=== PATIENT | female | born 1950 | race African-American/Black ===

== ENCOUNTER 2017-12-04 12:02 | Inpatient (IN) | payer MEDICAID ==
[~2017-12-04] VITALS: Ht 162.6 cm; Wt 70.3 kg
[~2017-12-04 12:02] MED LIST: ACETAMINOPHEN325 M2 RECTAL; ACETAMINOPHEN650 M2 ORAL; ALBUTEROL2.5 MG/3 M HHN; ATIVAN2 MG ORAL; ATROVENT500 MCG/2. HHN; CATAPRES0.1 MG ORAL; LEVEMIR100 UNIT/1 SUBQ; LOMOTIL TABLET1 EACH ORAL; METFORMIN HCL500 M1 ORAL; MOM30 ML ORAL; NORVASC5 MG ORAL; REGLAN10 MG ORAL
[2017-12-04] MEDS ORDERED: NORVASC5 MG ORAL (12:10)
[2017-12-04] MEDS ORDERED: MILK OF MA400 MG/51 ORAL (12:10)
[2017-12-04] MEDS ORDERED: MEGACE ES625 MG/5 M PO (12:10)
[2017-12-04] MEDS ORDERED: ARTIFICIAL TEAR15 ML BOTH EYES (12:10)
[2017-12-04] MEDS ORDERED: CALCIUM500 M3 PO (12:10)
[2017-12-04] MEDS ORDERED: ASPIR 8181 MG ORAL (12:10)
[2017-12-04] MEDS ORDERED: CRANBERRY450 M4 PO (12:10)
[2017-12-04] MEDS ORDERED: PEPCID20 MG ORAL (12:10)
[2017-12-04] MEDS ORDERED: SENNA8.6 M2 PO (12:10)
[2017-12-04] MEDS ORDERED: COLACE100 MG ORAL (12:10)
--- NOTE | 2017-12-04 12:20 | Emergency Room Report ---
History of Present Illness General Chief Complaint: Upper Respiratory Illness Source: Patient, Medical Record, EMS Present Illness HPI 59-year-old female, coming from [facility], presenting with possible pneumonia. care home sent her here for rule out pneumonia. Patient is awake and alert, oriented 3, however does not know why she was sent to the emergency room and does not know why she is here. She'll appear short of breath but is denying that she is short of breath. Unknown if she has had a cough. Is also tachycardic. No other history is able to be obtained Allergies: Coded Allergies: Shrimp (Unverified Allergy, Unknown, 12/04/17) Patient History Past Medical History: see triage record Past Surgical History: none Pertinent Family History: none Reviewed Nursing Documentation: PMH: Agreed, PSxH: Agreed Nursing Documentation-PMH Past Medical History: No History, Except For Hx Hypertension: Yes Hx COPD: Yes Hx Diabetes: Yes Hx Cancer: No Hx Gastrointestinal Problems: Yes - HEP C Hx Neurological Problems: Yes - headaches Review of Systems All Other Systems: negative except mentioned in HPI Physical Exam Vital Signs Date Time Temp Pulse Resp B/P (MAP) Pulse Ox O2 Delivery O2 Flow Rate FiO2 12/04/17 11:53 98.2 114 20 114/77 99 Room Air 98.2 Sp02 EP Interpretation: abnormal General Appearance: alert, moderate distress Head: normocephalic, atraumatic Eyes: bilateral eye normal inspection, bilateral eye PERRL, bilateral eye EOMI ENT: normal ENT inspection, normal pharynx, normal voice, moist mucus membranes Neck: normal inspection, full range of motion, supple Respiratory: other - dec lung sounds L worse than R Cardiovascular #1: normal inspection, regular rate, rhythm, no edema, normal capillary refill Cardiovascular #2: 2+ radial (R), 2+ radial (L) Gastrointestinal: normal inspection, non tender, soft, non-distended, no guarding Musculoskeletal: other - no sign traum FRMO Neurologic: alert, oriented x3, motor strength/tone normal Psychiatric: normal inspection, judgement/insight normal, memory normal Skin: normal inspection, normal color, no rash, warm/dry, well hydrated, normal turgor Medical Decision Making Diagnostic Impression: Primary Impression: Hypoxia Additional Impression: Pneumonia ER Course 67-year-old female who presents with hypoxia, shortness of breath DDX: Viral URI vs. pneumonia Plan: Labs, CXR, antibiotics ER course: Patient remains hypoxic on room air and has required nasal cannula Continues to be in mild/moderate respiratory distress but is speaking in complete senteces, alert, conversing with daughter, wanting to eat xopenex given to patient, antibiotics administered Disposition: Patient is to be admitted to telemetry D/w hospitalist Dr Watts EKG Diagnostic Results EP Interpretation: Yes Rate: Tachycardic Rhythm: NSR ST Segments: No acute changes ASA given to patient: No Rhythm Strip EP Interpretation: Yes Rate: 110 Rhythm: NSR, no PVCs, no ectopy Chest X-ray CXR: Ordered: Yes 1 view Indication: SOB EP interpretation: Yes Interpretation: +Infiltrate right-sided, also cannot rule out left pneumonia versus pleural effusion Impression: +Infiltrate right-sided, also cannot rule out left pneumonia versus pleural effusion Electronically signed by Jalyn Conley MD Laboratory Tests Test 12/04/17 12:40 White Blood Count 9.2 K/UL (4.8-10.8) Red Blood Count 5.07 M/UL (4.20-5.40) Hemoglobin 13.4 G/DL (12.0-16.0) Hematocrit 45.2 % (37.0-47.0) Mean Corpuscular Volume 89 FL (80-99) Mean Corpuscular Hemoglobin 26.4 PG (27.0-31.0) L Mean Corpuscular Hemoglobin Concent 29.6 G/DL (32.0-36.0) L Red Cell Distribution Width 14.8 % (11.6-14.8) Platelet Count 144 K/UL (150-450) L Mean Platelet Volume 7.8 FL (6.5-10.1) Neutrophils (%) (Auto) 47.4 % (45.0-75.0) Lymphocytes (%) (Auto) 45.1 % (20.0-45.0) H Monocytes (%) (Auto) 5.4 % (1.0-10.0) Eosinophils (%) (Auto) 0.4 % (0.0-3.0) Basophils (%) (Auto) 1.7 % (0.0-2.0) Urine Color Pale yellow Urine Appearance Clear Urine pH 5 (4.5-8.0) Urine Specific [place] 1.015 (1.005-1.035) Urine Protein 1+ (NEGATIVE) H Urine Glucose (UA) Negative (NEGATIVE) Urine Ketones Negative (NEGATIVE) Urine Occult Blood Negative (NEGATIVE) Urine Nitrite Negative (NEGATIVE) Urine Bilirubin Negative (NEGATIVE) Urine Urobilinogen Normal MG/DL (0.0-1.0) Urine Leukocyte Esterase 2+ (NEGATIVE) H Urine RBC 0-2 /HPF (0 - 2) Urine WBC 5-10 /HPF (0 - 2) H Urine Squamous Epithelial Cells Few /LPF (NONE/OCC) Urine Bacteria Occasional /HPF (NONE) Sodium Level 145 MMOL/L (136-145) Potassium Level 5.1 MMOL/L (3.5-5.1) Chloride Level 99 MMOL/L (98-107) Carbon Dioxide Level > 45 MMOL/L (21-32) *H Blood Urea Nitrogen 20 mg/dL (7-18) H Creatinine 1.1 MG/DL (0.55-1.30) Estimate Glomerular Filtration Rate 59.9 mL/min (>60) Glucose Level 293 MG/DL (74-106) H Lactic Acid Level Pending Calcium Level 10.0 MG/DL (8.5-10.1) Total Bilirubin Pending Aspartate Amino Transferase (AST) Pending Alanine Aminotransferase (ALT) Pending Alkaline Phosphatase Pending Total Creatine Kinase Pending Troponin I Pending Pro-B-Type Natriuretic Peptide Pending Total Protein Pending Albumin Pending Globulin Pending Microbiology Date/Time Source Procedure Growth Status 12/04/17 12:40 Nasal Nares Influenza Types A,B Antigen (CHARLES) - Final Complete Last Vital Signs Date Time Temp Pulse Resp B/P (MAP) Pulse Ox O2 Delivery O2 Flow Rate FiO2 12/04/17 11:53 98.2 114 20 114/77 99 Room Air 98.2 Disposition: ADMITTED INPATIENT Condition: Serious Referrals: NON PHYSICIAN (PCP) Jalyn Conley M.D. Dec 04, 2017 12:20
[2017-12-04 13:17] LABS: APPEARANCE,URINE CLEAR; BASOPHILS % (AUTO) 1.7 % (0.0-2.0); BILIRUBIN, URINE NEGATIVE (NEGATIVE); COLOR,URINE PALE YELLOW; EOSINOPHILS % (AUTO) 0.4 % (0.0-3.0); GLUCOSE, URINE (UA) NEGATIVE (NEGATIVE); HEMATOCRIT 45.2 % (37.0-47.0); HEMOGLOBIN 13.4 G/DL (12.0-16.0); KETONES,URINE NEGATIVE (NEGATIVE); LEUKOCYTE ESTERASE ,URINE 2+ (NEGATIVE); LYMPHOCYTES % (AUTO) 45.1 % (20.0-45.0); MEAN CORPUSCULAR VOLUME 89 FL (80-99); MONOCYTES % (AUTO) 5.4 % (1.0-10.0); NEUTROPHILS % (AUTO) 47.4 % (45.0-75.0); NITRITE,URINE NEGATIVE (NEGATIVE); PH,URINE 5 (4.5-8.0); PLATELET COUNT 144 K/UL (150-450); PROTEIN,URINE 1+ (NEGATIVE); RED BLOOD COUNT 5.07 M/UL (4.20-5.40); RED CELL DISTRIBUTION WIDTH 14.8 % (11.6-14.8); UROBILINOGEN,URINE NORMAL MG/DL (0.0-1.0); WHITE BLOOD COUNT 9.2 K/UL (4.8-10.8)
[2017-12-04 13:32] LABS: BLOOD UREA NITROGEN 20 mg/dL (7-18); CHLORIDE 99 MMOL/L (98-107); CREATININE 1.1 MG/DL (0.55-1.30); POTASSIUM 5.1 MMOL/L (3.5-5.1); SODIUM 145 MMOL/L (136-145)
[2017-12-04 13:34] LABS: CARBON DIOXIDE > 45 MMOL/L (21-32)
[2017-12-04 13:40] LABS: ALANINE AMINOTRANSFERASE 27 U/L (12-78); ALBUMIN 3.3 G/DL (3.4-5.0); ALBUMIN/GLOBULIN RATIO 0.7 (1.0-2.7); ALKALINE PHOSPHATASE 58 U/L (46-116); ASPARTATE AMINO TRANSFERASE 21 U/L (15-37); BILIRUBIN,TOTAL 0.2 MG/DL (0.2-1.0); CREATINE KINASE 22 U/L (26-308)
[2017-12-04] MEDS ORDERED: Vancomycin 1 GM in NS 275 ML IVPB ONE (13:45)
[2017-12-04] MEDS ORDERED: Piperacillin/Tazobactam 3.375 GM in NS 55 ML IV ONE (13:45)
[2017-12-04] MEDS ORDERED: Levalbuterol Inh UD 1.25mg/0.5ml HHN ONE (13:45)
[2017-12-04] MEDS ORDERED: Vancomycin 1gm inj IVPB ONE (13:48)
[2017-12-04] MEDS ORDERED: Zosyn 3.375gm inj ONE (13:48)
--- NOTE | 2017-12-04 13:53 | Diagnostic Imaging Report ---
Indication: Cough Technique: One view of the chest Comparison: none Findings: There is a small left pleural effusion. There is right perihilar atelectasis and possibly some consolidation. There is equivocal mild interstitial congestion diffusely. The heart is upper limits normal in size Impression: Left pleural effusion Right perihilar atelectasis Equivocal right perihilar consolidation and bilateral mild interstitial congestion. Correlate with clinical findings
[2017-12-04 14:00] VITALS: BP 115/70
[2017-12-04] MEDS ORDERED: Albuterol/Ipratropium 3ml neb HHN PRN (14:45)
[2017-12-04] MEDS ORDERED: Morphine Sulfate 4mg/ml Inj IVP PRN (14:45)
[2017-12-04] MEDS ORDERED: Promethazine/Codeine 5ml UD ORAL PRN (14:45)
[2017-12-04] MEDS ORDERED: LORazepam Inj 2mg/ml 1ml IV PRN (14:45)
[2017-12-04] MEDS ORDERED: Miralax 17gm pkt ORAL PRN (14:45)
[2017-12-04 15:00] VITALS: BP 111/65
[2017-12-04 16:25] VITALS: BP 117/75
[2017-12-04] MEDS: NovoLOG Insulin Flexpen SUBQ SCH ×2 (17:02→21:50)
--- NOTE | 2017-12-04 17:33 | History and Physical ---
History of Present Illness General Date patient seen: Dec 04, 2017 Reason for Hospitalization: Upper Respiratory Illness Present Illness HPI 59-year-old female, with pmh of tracheostomy, removed now, COPD, Hep C, [facility] coming, brought in for evaluation of dyspnea, She'll appear short of breath but is denying that she is short of breath. She was also tachycardic. No other history is able to be obtained. She is admitted to [facility] because she was hemodynamically unstable. Allergies: Coded Allergies: Shrimp (Unverified Allergy, Unknown, 12/04/17) Medication History Scheduled Acetaminophen (Acetaminophen), 325 MG RECTAL Q4H, (Reported) Acetaminophen (Acetaminophen 8 Hour), 650 MG ORAL Q4HR, (Reported) Albuterol Sulfate* (Albuterol Sulfate Hhn*), 2.5 MG HHN Q4H, (Reported) Amlodipine Besylate (Norvasc), 5 MG ORAL DAILY, (Reported) Amlodipine Besylate (Norvasc), 5 MG ORAL DAILY, (Reported) Aspirin* (Aspir 81*), 81 MG ORAL DAILY, (Reported) Calcium Carbonate (Calcium), 500 MG PO BID, (Reported) Cranberry Fruit Concentrate (Cranberry), 450 MG PO BID, (Reported) Docusate Sodium* (Colace*), 100 MG ORAL DAILY, (Reported) Famotidine (Pepcid), 20 MG ORAL BEDTIME, (Reported) Insulin Detemir (Levemir), 30 SUBQ 6AM, (Reported) Insulin Detemir (Levemir), 18 SUBQ 6PM, (Reported) Magnesium Hydroxide* (Milk Of Magnesia*), 30 ML ORAL DAILY, (Reported) Metformin Hcl* (Metformin Hcl*), 500 MG ORAL TWICE A DAY, (Reported) Metoclopramide Hcl* (Reglan*), 10 MG ORAL THREE TIMES A DAY, (Reported) Scheduled PRN Clonidine Hcl* (Catapres*), 0.1 MG ORAL EVERY 6 HOURS PRN, (Reported) Diphenoxylate Hcl/Atropine (Lomotil Tablet), 25 MG ORAL QID PRN, (Reported) Lorazepam* (Ativan*), 2 MG ORAL BEDTIME PRN, (Reported) Magnesium Hydroxide (Milk of Magnesia), 30 ML ORAL DAILY PRN, (Reported) Sennosides (Senna), 8.6 MG PO for Constipation, (Reported) Miscellaneous Medications Dextran 70/Hypromellose (Artificial Tears Eye Drops*), 1 DROP BOTH EYES, ( Reported) Ipratropium [place] (Atrovent), 500 MCG HHN, (Reported) Megestrol Acetate (Megace Es), 40 MG PO, (Reported) Patient History Healthcare decision maker N Resuscitation status Advanced Directive on File Past Medical/Surgical History Past Medical/Surgical History: (1) Hepatitis C Review of Systems Constitutional: Reports: malaise, weakness Respiratory: Reports: cough, shortness of breath, sputum All Other Systems: negative except mentioned in HPI Physical Exam General Appearance: WD/WN Lines, tubes and drains: peripheral HEENT: normocephalic, atraumatic Neck: non-tender, normal alignment Respiratory/Chest: rhonchi - left, rhonchi - right Cardiovascular/Chest: normal peripheral pulses, normal rate Abdomen: non tender Genitourinary/Rectal: normal genital exam, normal rectal exam Extremities: normal range of motion, non-tender 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 Last 24 Hour Vital Signs Date Time Temp Pulse Resp B/P (MAP) Pulse Ox O2 Delivery O2 Flow Rate FiO2 12/04/17 17:15 97 19 97 Full Face 50 12/04/17 16:25 98.6 99 18 117/75 100 Bi-pap 50 98.6 12/04/17 16:03 99.0 109 18 111/65 100 Bi-pap 99.0 12/04/17 15:00 99.0 109 18 111/65 100 Bi-pap 50 99.0 12/04/17 14:40 50 12/04/17 14:32 114 31 100 Full Face 50 12/04/17 13:00 114 20 Nasal Cannula 1.0 12/04/17 12:56 99.0 99.0 12/04/17 11:53 98.2 114 20 114/77 99 Room Air 98.2 Laboratory Tests Test 12/04/17 12:40 12/04/17 13:34 White Blood Count 9.2 K/UL (4.8-10.8) Red Blood Count 5.07 M/UL (4.20-5.40) Hemoglobin 13.4 G/DL (12.0-16.0) Hematocrit 45.2 % (37.0-47.0) Mean Corpuscular Volume 89 FL (80-99) Mean Corpuscular Hemoglobin 26.4 PG (27.0-31.0) L Mean Corpuscular Hemoglobin Concent 29.6 G/DL (32.0-36.0) L Red Cell Distribution Width 14.8 % (11.6-14.8) Platelet Count 144 K/UL (150-450) L Mean Platelet Volume 7.8 FL (6.5-10.1) Neutrophils (%) (Auto) 47.4 % (45.0-75.0) Lymphocytes (%) (Auto) 45.1 % (20.0-45.0) H Monocytes (%) (Auto) 5.4 % (1.0-10.0) Eosinophils (%) (Auto) 0.4 % (0.0-3.0) Basophils (%) (Auto) 1.7 % (0.0-2.0) Urine Color Pale yellow Urine Appearance Clear Urine pH 5 (4.5-8.0) Urine Specific [place] 1.015 (1.005-1.035) Urine Protein 1+ (NEGATIVE) H Urine Glucose (UA) Negative (NEGATIVE) Urine Ketones Negative (NEGATIVE) Urine Occult Blood Negative (NEGATIVE) Urine Nitrite Negative (NEGATIVE) Urine Bilirubin Negative (NEGATIVE) Urine Urobilinogen Normal MG/DL (0.0-1.0) Urine Leukocyte Esterase 2+ (NEGATIVE) H Urine RBC 0-2 /HPF (0 - 2) Urine WBC 5-10 /HPF (0 - 2) H Urine Squamous Epithelial Cells Few /LPF (NONE/OCC) Urine Bacteria Occasional /HPF (NONE) Sodium Level 145 MMOL/L (136-145) Potassium Level 5.1 MMOL/L (3.5-5.1) Chloride Level 99 MMOL/L (98-107) Carbon Dioxide Level > 45 MMOL/L (21-32) *H Blood Urea Nitrogen 20 mg/dL (7-18) H Creatinine 1.1 MG/DL (0.55-1.30) Estimat Glomerular Filtration Rate 59.9 mL/min (>60) Glucose Level 293 MG/DL (74-106) H Lactic Acid Level 1.40 mmol/L (0.66-2.22) Calcium Level 10.0 MG/DL (8.5-10.1) Total Bilirubin 0.2 MG/DL (0.2-1.0) Aspartate Amino Transf (AST/SGOT) 21 U/L (15-37) Alanine Aminotransferase (ALT/SGPT) 27 U/L (12-78) Alkaline Phosphatase 58 U/L (46-116) Total Creatine Kinase 22 U/L (26-308) L Troponin I 0.040 ng/mL (0.000-0.056) Pro-B-Type Natriuretic Peptide 725 pg/mL (0-125) H Total Protein 8.0 G/DL (6.4-8.2) Albumin 3.3 G/DL (3.4-5.0) L Globulin 4.7 g/dL Albumin/Globulin Ratio 0.7 (1.0-2.7) L Arterial Blood pH 7.298 (7.350-7.450) Arterial Blood Partial Pressure CO2 111.3 mmHg (35.0-45.0) *H Arterial Blood Partial Pressure O2 70.9 mmHg (75.0-100.0) L Arterial Blood HCO3 53.2 mmol/L (22.0-26.0) H Arterial Blood Oxygen Saturation 93.3 % (92.0-98.0) Arterial Blood Base Excess 21.0 Julius Test Positive Microbiology Date/Time Source Procedure Growth Status 12/04/17 12:40 Nasal Nares Influenza Types A,B Antigen (CHARLES) - Final Complete Height (Feet): 5 Height (Inches): 4.00 Weight (Pounds): 155 Medications Current Medications Medications (Trade) Dose Ordered Sig/Hansel Route PRN Reason Start Time Stop Time Status Last Admin Dose Admin Acetaminophen (Tylenol) 650 mg Q4H PRN ORAL FEVER 12/04/17 14:45 01/03/18 14:44 Albuterol/ Ipratropium (Albuterol/ Ipratropium) 3 ml EVERY 4 HOURS PRN HHN Shortness of Breath 12/04/17 14:45 12/09/17 14:44 Amlodipine Besylate (Norvasc) 5 mg DAILY ORAL 12/05/17 09:00 01/04/18 08:59 Cefepime HCl 1 gm/ Dextrose 55 ml @ 110 mls/hr EVERY 12 HOURS IVPB 12/04/17 21:00 12/11/17 20:59 Dextrose (Dextrose 50%) STAT PRN IV Hypoglycemia 12/04/17 14:45 01/03/18 14:44 Heparin Sodium (Porcine) (Heparin 5000 units/ml) 5,000 units EVERY 12 HOURS SUBQ 12/04/17 21:00 01/03/18 20:59 Insulin Aspart (NovoLOG) BEFORE MEALS AND HS SUBQ 12/04/17 16:30 01/03/18 16:29 12/04/17 17:02 Lorazepam (Ativan 2mg/ml 1ml) 2 mg EVERY 2 HOURS PRN IV For Anxiety 12/04/17 14:45 12/11/17 14:44 Morphine Sulfate (Morphine Sulfate) 4 mg EVERY 4 HOURS PRN IVP Severe Pain (Pain Scale 7-10) 12/04/17 14:45 12/11/17 14:44 Ondansetron HCl (Zofran) 4 mg Q6H PRN IVP Nausea & Vomiting 12/04/17 14:45 01/03/18 14:44 Polyethylene Glycol (Miralax) 17 gm DAILYPRN PRN ORAL Constipation 12/04/17 14:45 01/03/18 14:44 Promethazine HCl/ Codeine (Phenergan with Codeine) 5 ml Q4H PRN ORAL For Cough 12/04/17 14:45 01/03/18 14:44 Sodium Chloride 1,000 ml @ 50 mls/hr Q20H IV 12/04/17 17:00 01/03/18 16:59 12/04/17 16:47 Vancomycin HCl (Vanco rx to dose) 1 ea DAILY PRN MISC . 12/04/17 16:00 01/03/18 15:59 Vancomycin HCl 1.25 gm/Dextrose 275 ml @ 183.3 mls/ hr Q24H IVPB 12/05/17 06:00 12/10/17 05:59 Assessment/Plan Problem List: (1) Acute and chronic respiratory failure ICD Codes: J96.20 - Acute and chronic respiratory failure, unspecified whether with hypoxia or hypercapnia SNOMED: 96698505 (2) Pneumonia ICD Codes: J18.9 - Pneumonia, unspecified organism SNOMED: 447624223 (3) COPD (chronic obstructive pulmonary disease) ICD Codes: J44.9 - Chronic obstructive pulmonary disease, unspecified SNOMED: 80793294 (4) Tachycardia ICD Codes: R00.0 - Tachycardia, unspecified SNOMED: 6134422 (5) Hepatitis C ICD Codes: B19.20 - Unspecified viral hepatitis C without hepatic coma SNOMED: 65088693 Assessment/Plan titrate bipap respiratory treatment iv abc check sputum chest PT check cultures Renal evaluation dvt prophylaxis Leni Watts MD Dec 04, 2017 17:33
[2017-12-04 20:00] VITALS: BP_SYST 117; BP_SYST 131; BP_DIAS 63; BP_DIAS 75
[2017-12-04] MEDS: Heparin 5000 units/ml inj SUBQ SCH (21:00)
[2017-12-04] MEDS: Cefepime HCl 1 GM in D5W 55 ML IVPB SCH (21:30)
[2017-12-05] VITALS: BP 125/71
[2017-12-05 04:00] VITALS: BP 111/71
[2017-12-05] MEDS: Vancomycin 1.25 GM in D5W 275 ML IVPB SCH (06:06)
[2017-12-05] MEDS: NovoLOG Insulin Flexpen SUBQ SCH ×4 (06:07→21:30)
[2017-12-05 07:50] LABS: BASOPHILS % (AUTO) 1.1 % (0.0-2.0); EOSINOPHILS % (AUTO) 0.6 % (0.0-3.0); HEMATOCRIT 41.2 % (37.0-47.0); HEMOGLOBIN 12.7 G/DL (12.0-16.0); LYMPHOCYTES % (AUTO) 43.4 % (20.0-45.0); MEAN CORPUSCULAR VOLUME 89 FL (80-99); MONOCYTES % (AUTO) 5.6 % (1.0-10.0); NEUTROPHILS % (AUTO) 49.3 % (45.0-75.0); PLATELET COUNT 128 K/UL (150-450); RED BLOOD COUNT 4.61 M/UL (4.20-5.40); RED CELL DISTRIBUTION WIDTH 14.7 % (11.6-14.8)
[2017-12-05 07:51] LABS: ALBUMIN 2.9 G/DL (3.4-5.0); BLOOD UREA NITROGEN 15 mg/dL (7-18); CALCIUM 9.6 MG/DL (8.5-10.1); CHLORIDE 102 MMOL/L (98-107); PHOSPHORUS 2.9 MG/DL (2.5-4.9); POTASSIUM 5.5 MMOL/L (3.5-5.1); SODIUM 144 MMOL/L (136-145)
[2017-12-05 08:00] VITALS: BP 114/69
[2017-12-05 08:33] LABS: CARBON DIOXIDE > 45 MMOL/L (21-32)
[2017-12-05] MEDS: Cefepime HCl 1 GM in D5W 55 ML IVPB SCH ×2 (10:02→21:00)
[2017-12-05] MEDS: Heparin 5000 units/ml inj SUBQ SCH ×2 (10:04→21:00)
--- NOTE | 2017-12-05 10:47 | Consultation ---
Consult Note Consult Note asked to eval for high K 59-year-old female, [place] [facility], presenting with possible pneumonia. snf sent her here for rule out pneumonia. Patient is awake and alert, oriented 3, however does not know why she was sent to the emergency room and does not know why she is here. She'll appear short of breath but is denying that she is short of breath. Unknown if she has had a cough. Is also tachycardic. No other history is able to be obtained Past Medical History: No History, Except For Hx Hypertension: Yes Hx COPD: Yes Hx Diabetes: Yes Hx Gastrointestinal Problems: Yes - HEP C Hx Neurological Problems: Yes - headaches Assessment/Plan High K due to acidosis and hypoxia Hypoxia Pneumonia HTN COPD DM Hep C change Norvasc to cardiazem start diamox pulmonary support Kayexelate per orders BUZZ CHAHAL Dec 05, 2017 10:47
[2017-12-05] MEDS ORDERED: Sodium Polystyrene Sulfonate 15gm Powder ORAL ONE (11:15)
[2017-12-05 12:00] VITALS: BP 118/76
--- NOTE | 2017-12-05 13:10 | Pulmonology Progress Note ---
Assessment/Plan Problems: (1) Acute and chronic respiratory failure (2) Pneumonia (3) COPD (chronic obstructive pulmonary disease) (4) Tachycardia (5) Hepatitis C Assessment/Plan slightly more stable improving continue abx check cultures chest PT renal evaluation for Hyperkalemia titrate fio2 to sat of 89-90. Subjective ROS Limited/Unobtainable: No Constitutional: Reports: no symptoms HEENT: Repors: no symptoms Allergies: Coded Allergies: Shrimp (Unverified Allergy, Unknown, 12/04/17) Objective Last 24 Hour Vital Signs Date Time Temp Pulse Resp B/P (MAP) Pulse Ox O2 Delivery O2 Flow Rate FiO2 12/05/17 12:00 98.1 98 20 118/76 98 Nasal Cannula 4.0 98.1 12/05/17 12:00 4.0 12/05/17 10:02 106 114/69 12/05/17 08:00 97.6 106 20 114/69 98 Nasal Cannula 4.0 97.6 12/05/17 08:00 4.0 12/05/17 07:58 99 12/05/17 04:00 86 12/05/17 04:00 4.0 12/05/17 04:00 98.3 84 24 111/71 100 Nasal Cannula 4.0 98.3 12/05/17 00:48 90 22 96 Full Face 30 12/05/17 00:26 105 12/05/17 00:00 30 12/05/17 00:00 98.8 109 28 125/71 98 Bi-pap 30 98.8 12/04/17 23:29 92 36 97 Full Face 30 12/04/17 20:00 98.8 104 20 117/63 99 Nasal Cannula 2.0 98.8 12/04/17 19:43 94 12/04/17 19:00 85 18 96 Full Face 30 12/04/17 17:56 102 12/04/17 17:15 97 19 97 Full Face 50 12/04/17 16:25 98.6 99 18 117/75 100 Bi-pap 50 98.6 12/04/17 16:03 99.0 109 18 111/65 100 Bi-pap 99.0 12/04/17 16:00 50 12/04/17 15:00 99.0 109 18 111/65 100 Bi-pap 50 99.0 12/04/17 14:40 50 12/04/17 14:32 114 31 100 Full Face 50 12/04/17 14:00 99.0 111 18 115/70 100 99.0 Intake and Output 12/04/17 12/05/17 19:00 07:00 Intake Total 425 ml 775 ml Balance 425 ml 775 ml Intake Oral 50 ml 220 ml IV Total 375 ml 555 ml # Voids 1 # Bowel Movements 2 General Appearance: WD/WN HEENT: normocephalic, atraumatic Respiratory/Chest: chest wall non-tender, lungs clear Breasts: no masses Cardiovascular: normal peripheral pulses Abdomen: normal bowel sounds, no organomegaly Genitourinary: normal external genitalia Extremities: no cyanosis Skin: no lesions 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, no motor/sensory deficits Lymphatic: no neck adenopathy Microbiology Date/Time Source Procedure Growth Status 12/04/17 12:40 Nasal Nares Influenza Types A,B Antigen (CHARLES) - Final Complete Laboratory Tests 12/04/17 13:34: Arterial Blood pH 7.298L, Arterial Blood Partial Pressure CO2 111.3*H, Arterial Blood Partial Pressure O2 70.9L, Arterial Blood HCO3 53.2H, Arterial Blood Oxygen Saturation 93.3, Arterial Blood Base Excess 21.0, Julius Test Positive 12/04/17 17:36: Arterial Blood pH 7.300L, Arterial Blood Partial Pressure CO2 96.5*H, Arterial Blood Partial Pressure O2 152.8H, Arterial Blood HCO3 46.4H, Arterial Blood Oxygen Saturation 98.7H, Arterial Blood Base Excess 15.8, Julius Test Positive 12/05/17 06:00: White Blood Count 9.0, Red Blood Count 4.61, Hemoglobin 12.7, Hematocrit 41.2, Mean Corpuscular Volume 89, Mean Corpuscular Hemoglobin 27.5, Mean Corpuscular Hemoglobin Concent 30.8L, Red Cell Distribution Width 14.7, Platelet Count 128L , Mean Platelet Volume 7.2, Neutrophils (%) (Auto) 49.3, Lymphocytes (%) (Auto) 43.4, Monocytes (%) (Auto) 5.6, Eosinophils (%) (Auto) 0.6, Basophils (%) (Auto ) 1.1, Sodium Level 144, Potassium Level 5.5H, Chloride Level 102, Carbon Dioxide Level > 45*H, Blood Urea Nitrogen 15, Creatinine 1.0, Estimat Glomerular Filtration Rate > 60, Glucose Level 136#H, Calcium Level 9.6, Phosphorus Level 2.9, Albumin 2.9L 12/05/17 10:56: C-Reactive Protein, Quantitative < 0.4 Current Medications Medications (Trade) Dose Ordered Sig/Hansel Route PRN Reason Start Time Stop Time Status Last Admin Dose Admin Acetaminophen (Tylenol) 650 mg Q4H PRN ORAL FEVER 12/04/17 14:45 01/03/18 14:44 Acetazolamide (Diamox) 250 mg TWICE A DAY ORAL 12/05/17 18:00 01/04/18 17:59 Albuterol/ Ipratropium (Albuterol/ Ipratropium) 3 ml EVERY 4 HOURS PRN HHN Shortness of Breath 12/04/17 14:45 12/09/17 14:44 Cefepime HCl 1 gm/ Dextrose 55 ml @ 110 mls/hr EVERY 12 HOURS IVPB 12/04/17 21:00 12/11/17 20:59 12/05/17 10:02 Dextrose (Dextrose 50%) STAT PRN IV Hypoglycemia 12/04/17 14:45 01/03/18 14:44 Diltiazem HCl (Cardizem) 30 mg EVERY 8 HOURS ORAL 12/05/17 14:00 01/04/18 13:59 Heparin Sodium (Porcine) (Heparin 5000 units/ml) 5,000 units EVERY 12 HOURS SUBQ 12/04/17 21:00 01/03/18 20:59 12/05/17 10:04 Insulin Aspart (NovoLOG) BEFORE MEALS AND HS SUBQ 12/04/17 16:30 01/03/18 16:29 12/05/17 12:52 Lorazepam (Ativan 2mg/ml 1ml) 2 mg EVERY 2 HOURS PRN IV For Anxiety 12/04/17 14:45 12/11/17 14:44 12/04/17 21:32 Morphine Sulfate (Morphine Sulfate) 4 mg EVERY 4 HOURS PRN IVP Severe Pain (Pain Scale 7-10) 12/04/17 14:45 12/11/17 14:44 12/04/17 23:43 Ondansetron HCl (Zofran) 4 mg Q6H PRN IVP Nausea & Vomiting 12/04/17 14:45 01/03/18 14:44 Pantoprazole (Protonix) 40 mg DAILY ORAL 12/05/17 11:15 01/04/18 11:14 Polyethylene Glycol (Miralax) 17 gm DAILYPRN PRN ORAL Constipation 12/04/17 14:45 01/03/18 14:44 Promethazine HCl/ Codeine (Phenergan with Codeine) 5 ml Q4H PRN ORAL For Cough 12/04/17 14:45 01/03/18 14:44 Sodium Chloride 1,000 ml @ 50 mls/hr Q20H IV 12/04/17 17:00 01/03/18 16:59 12/04/17 16:47 Vancomycin HCl (Vanco rx to dose) 1 ea DAILY PRN MISC . 12/04/17 16:00 01/03/18 15:59 Vancomycin HCl 1.25 gm/Dextrose 275 ml @ 183.3 mls/ hr Q24H IVPB 12/05/17 06:00 12/10/17 05:59 12/05/17 06:06 Leni Watts MD Dec 05, 2017 13:10
[2017-12-05] MEDS: dilTIAZem HCl 30mg tab ORAL SCH ×2 (13:12→21:28)
--- NOTE | 2017-12-05 14:37 | Consultation ---
History of Present Illness General Date patient seen: Dec 05, 2017 Time patient seen: 14:26 Chief Complaint: Upper Respiratory Illness Present Illness HPI 67 y/o F with hx of trach s/p removal, COPD, Hep C, Dm2, HTN, [facility] resident presents to ED on 12/04 with dyspnea, tachycardia. In ED found to have hyperkalemia, acidosis and hypoxia Allergies: Coded Allergies: Shrimp (Unverified Allergy, Unknown, 12/04/17) Medication History Scheduled Acetaminophen (Acetaminophen), 325 MG RECTAL Q4H, (Reported) Acetaminophen (Acetaminophen 8 Hour), 650 MG ORAL Q4HR, (Reported) Albuterol Sulfate* (Albuterol Sulfate Hhn*), 2.5 MG HHN Q4H, (Reported) Amlodipine Besylate (Norvasc), 5 MG ORAL DAILY, (Reported) Amlodipine Besylate (Norvasc), 5 MG ORAL DAILY, (Reported) Aspirin* (Aspir 81*), 81 MG ORAL DAILY, (Reported) Calcium Carbonate (Calcium), 500 MG PO BID, (Reported) Cranberry Fruit Concentrate (Cranberry), 450 MG PO BID, (Reported) Docusate Sodium* (Colace*), 100 MG ORAL DAILY, (Reported) Famotidine (Pepcid), 20 MG ORAL BEDTIME, (Reported) Insulin Detemir (Levemir), 30 SUBQ 6AM, (Reported) Insulin Detemir (Levemir), 18 SUBQ 6PM, (Reported) Magnesium Hydroxide* (Milk Of Magnesia*), 30 ML ORAL DAILY, (Reported) Metformin Hcl* (Metformin Hcl*), 500 MG ORAL TWICE A DAY, (Reported) Metoclopramide Hcl* (Reglan*), 10 MG ORAL THREE TIMES A DAY, (Reported) Scheduled PRN Clonidine Hcl* (Catapres*), 0.1 MG ORAL EVERY 6 HOURS PRN, (Reported) Diphenoxylate Hcl/Atropine (Lomotil Tablet), 25 MG ORAL QID PRN, (Reported) Lorazepam* (Ativan*), 2 MG ORAL BEDTIME PRN, (Reported) Magnesium Hydroxide (Milk of Magnesia), 30 ML ORAL DAILY PRN, (Reported) Sennosides (Senna), 8.6 MG PO for Constipation, (Reported) Miscellaneous Medications Dextran 70/Hypromellose (Artificial Tears Eye Drops*), 1 DROP BOTH EYES, ( Reported) Ipratropium Elizabeth (Atrovent), 500 MCG HHN, (Reported) Megestrol Acetate (Megace Es), 40 MG PO, (Reported) Patient History Healthcare decision maker N Resuscitation status Full Code Advanced Directive on File Review of Systems All Other Systems: negative except mentioned in HPI Physical Exam Physical Exam Narrative General Appearance: WD/WN Lines, tubes and drains: peripheral HEENT: normocephalic, atraumatic Neck: non-tender, normal alignment Respiratory/Chest: rhonchi - left, rhonchi - right Cardiovascular/Chest: normal peripheral pulses, normal rate Abdomen: non tender Genitourinary/Rectal: normal genital exam, normal rectal exam Extremities: normal range of motion, non-tender Neurologic: manager benefit II-XII grossly normal Last 24 Hour Vital Signs Date Time Temp Pulse Resp B/P (MAP) Pulse Ox O2 Delivery O2 Flow Rate FiO2 12/05/17 13:12 98 118/76 12/05/17 12:00 98.1 98 20 118/76 98 Nasal Cannula 4.0 98.1 12/05/17 12:00 4.0 12/05/17 11:51 100 12/05/17 10:02 106 114/69 12/05/17 08:00 97.6 106 20 114/69 98 Nasal Cannula 4.0 97.6 12/05/17 08:00 4.0 12/05/17 07:58 99 12/05/17 04:00 86 12/05/17 04:00 4.0 12/05/17 04:00 98.3 84 24 111/71 100 Nasal Cannula 4.0 98.3 12/05/17 00:48 90 22 96 Full Face 30 12/05/17 00:26 105 12/05/17 00:00 30 12/05/17 00:00 98.8 109 28 125/71 98 Bi-pap 30 98.8 12/04/17 23:29 92 36 97 Full Face 30 12/04/17 20:00 98.8 104 20 117/63 99 Nasal Cannula 2.0 98.8 12/04/17 19:43 94 12/04/17 19:00 85 18 96 Full Face 30 12/04/17 17:56 102 3/20/18 17:15 97 19 97 Full Face 50 12/04/17 16:25 98.6 99 18 117/75 100 Bi-pap 50 98.6 12/04/17 16:03 99.0 109 18 111/65 100 Bi-pap 99.0 12/04/17 16:00 50 12/04/17 15:00 99.0 109 18 111/65 100 Bi-pap 50 99.0 12/04/17 14:40 50 12/04/17 14:32 114 31 100 Full Face 50 Intake and Output 12/04/17 12/05/17 19:00 07:00 Intake Total 425 ml 775 ml Balance 425 ml 775 ml Intake Oral 50 ml 220 ml IV Total 375 ml 555 ml # Voids 1 # Bowel Movements 2 Laboratory Tests Test 12/04/17 17:36 12/05/17 06:00 12/05/17 10:56 Arterial Blood pH 7.300 (7.350-7.450) Arterial Blood Partial Pressure CO2 96.5 mmHg (35.0-45.0) *H Arterial Blood Partial Pressure O2 152.8 mmHg (75.0-100.0) H Arterial Blood HCO3 46.4 mmol/L (22.0-26.0) H Arterial Blood Oxygen Saturation 98.7 % (92.0-98.0) H Arterial Blood Base Excess 15.8 Julius Test Positive White Blood Count 9.0 K/UL (4.8-10.8) Red Blood Count 4.61 M/UL (4.20-5.40) Hemoglobin 12.7 G/DL (12.0-16.0) Hematocrit 41.2 % (37.0-47.0) Mean Corpuscular Volume 89 FL (80-99) Mean Corpuscular Hemoglobin 27.5 PG (27.0-31.0) Mean Corpuscular Hemoglobin Concent 30.8 G/DL (32.0-36.0) L Red Cell Distribution Width 14.7 % (11.6-14.8) Platelet Count 128 K/UL (150-450) L Mean Platelet Volume 7.2 FL (6.5-10.1) Neutrophils (%) (Auto) 49.3 % (45.0-75.0) Lymphocytes (%) (Auto) 43.4 % (20.0-45.0) Monocytes (%) (Auto) 5.6 % (1.0-10.0) Eosinophils (%) (Auto) 0.6 % (0.0-3.0) Basophils (%) (Auto) 1.1 % (0.0-2.0) Sodium Level 144 MMOL/L (136-145) Potassium Level 5.5 MMOL/L (3.5-5.1) H Chloride Level 102 MMOL/L (98-107) Carbon Dioxide Level > 45 MMOL/L (21-32) *H Blood Urea Nitrogen 15 mg/dL (7-18) Creatinine 1.0 MG/DL (0.55-1.30) Estimat Glomerular Filtration Rate > 60 mL/min (>60) Glucose Level 136 MG/DL (74-106) #H Calcium Level 9.6 MG/DL (8.5-10.1) Phosphorus Level 2.9 MG/DL (2.5-4.9) Albumin 2.9 G/DL (3.4-5.0) L C-Reactive Protein, Quantitative < 0.4 mg/dL (0.00-0.90) Height (Feet): 5 Height (Inches): 4.00 Weight (Pounds): 155 Medications Current Medications Medications (Trade) Dose Ordered Sig/Hansel Route PRN Reason Start Time Stop Time Status Last Admin Dose Admin Acetaminophen (Tylenol) 650 mg Q4H PRN ORAL FEVER 12/04/17 14:45 01/03/18 14:44 Acetazolamide (Diamox) 250 mg TWICE A DAY ORAL 12/05/17 18:00 01/04/18 17:59 Albuterol/ Ipratropium (Albuterol/ Ipratropium) 3 ml EVERY 4 HOURS PRN HHN Shortness of Breath 12/04/17 14:45 12/09/17 14:44 Cefepime HCl 1 gm/ Dextrose 55 ml @ 110 mls/hr EVERY 12 HOURS IVPB 12/04/17 21:00 12/11/17 20:59 12/05/17 10:02 Dextrose (Dextrose 50%) STAT PRN IV Hypoglycemia 12/04/17 14:45 01/03/18 14:44 Diltiazem HCl (Cardizem) 30 mg EVERY 8 HOURS ORAL 12/05/17 14:00 01/04/18 13:59 12/05/17 13:12 Heparin Sodium (Porcine) (Heparin 5000 units/ml) 5,000 units EVERY 12 HOURS SUBQ 12/04/17 21:00 01/03/18 20:59 12/05/17 10:04 Insulin Aspart (NovoLOG) BEFORE MEALS AND HS SUBQ 12/04/17 16:30 01/03/18 16:29 12/05/17 12:52 Lorazepam (Ativan 2mg/ml 1ml) 2 mg EVERY 2 HOURS PRN IV For Anxiety 12/04/17 14:45 12/11/17 14:44 12/04/17 21:32 Morphine Sulfate (Morphine Sulfate) 4 mg EVERY 4 HOURS PRN IVP Severe Pain (Pain Scale 7-10) 12/04/17 14:45 12/11/17 14:44 12/04/17 23:43 Ondansetron HCl (Zofran) 4 mg Q6H PRN IVP Nausea & Vomiting 12/04/17 14:45 01/03/18 14:44 Pantoprazole (Protonix) 40 mg DAILY ORAL 12/05/17 11:15 01/04/18 11:14 12/05/17 13:11 Polyethylene Glycol (Miralax) 17 gm DAILYPRN PRN ORAL Constipation 12/04/17 14:45 01/03/18 14:44 Promethazine HCl/ Codeine (Phenergan with Codeine) 5 ml Q4H PRN ORAL For Cough 12/04/17 14:45 01/03/18 14:44 Sodium Chloride 1,000 ml @ 50 mls/hr Q20H IV 12/04/17 17:00 01/03/18 16:59 12/05/17 13:12 Vancomycin HCl (Vanco rx to dose) 1 ea DAILY PRN MISC . 12/04/17 16:00 01/03/18 15:59 Vancomycin HCl 1.25 gm/Dextrose 275 ml @ 183.3 mls/ hr Q24H IVPB 12/05/17 06:00 12/10/17 05:59 12/05/17 06:06 Assessment/Plan Assessment/Plan Abx: iV Vancomycin 12/04- Cefepime 12/04- Assessment: Acute hypoxic resp failure POssible PNA -CXR: Left pleural effusion. Right perihilar atelectasis. Equivocal right perihilar consolidation and bilateral mild interstitial congestion. -influenza sc neg Afebrile, no leukocytosis -u/a wbc 5-10, nit neg, leuk +2 Mild hyperkalemia hx of trach s/p removal COPD Hep C Dm2 HTN NH resident Plan: -Continue empiric Vanco and Cefepime #2 pending cultuers -f/u cx -Monitor CBC/BMP, temperatures -aspiration precautions Thank you for this consultation. Will continue to follow along with you. Discussed with AJ. Caterina Elizondo M.D. Dec 05, 2017 14:37
[2017-12-05 16:00] VITALS: BP 119/62
--- NOTE | 2017-12-05 17:00 | Cardiology Report ---
APPROVED REPORT EKG Measurement Heart [id number] Sinus tachycardia Otherwise normal ECG
[2017-12-05 20:00] VITALS: BP 130/76
[2017-12-06] VITALS: BP 117/68
[2017-12-06 04:00] VITALS: BP 120/71
[2017-12-06] MEDS: dilTIAZem HCl 30mg tab ORAL SCH ×3 (05:49→22:00)
[2017-12-06] MEDS: NovoLOG Insulin Flexpen SUBQ SCH ×4 (05:50→23:13)
[2017-12-06] MEDS: Vancomycin 1.25 GM in D5W 275 ML IVPB SCH (05:51)
[2017-12-06 08:00] VITALS: BP 133/66
[2017-12-06] MEDS: Cefepime HCl 1 GM in D5W 55 ML IVPB SCH ×2 (09:00→21:00)
[2017-12-06] MEDS: Heparin 5000 units/ml inj SUBQ SCH ×2 (09:00→21:00)
[2017-12-06 10:52] LABS: BASOPHILS % (AUTO) 1.7 % (0.0-2.0); EOSINOPHILS % (AUTO) 1.1 % (0.0-3.0); HEMATOCRIT 43.7 % (37.0-47.0); HEMOGLOBIN 13.1 G/DL (12.0-16.0); MEAN CORPUSCULAR VOLUME 88 FL (80-99); MONOCYTES % (AUTO) 6.6 % (1.0-10.0); NEUTROPHILS % (AUTO) 50.7 % (45.0-75.0); PLATELET COUNT 144 K/UL (150-450); RED BLOOD COUNT 4.95 M/UL (4.20-5.40); RED CELL DISTRIBUTION WIDTH 14.5 % (11.6-14.8); WHITE BLOOD COUNT 9.2 K/UL (4.8-10.8)
[2017-12-06 11:10] LABS: ALANINE AMINOTRANSFERASE 27 U/L (12-78); ALBUMIN 3.1 G/DL (3.4-5.0); ALBUMIN/GLOBULIN RATIO 0.7 (1.0-2.7); ALKALINE PHOSPHATASE 51 U/L (46-116); ANION GAP 1 mmol/L (5-15); ASPARTATE AMINO TRANSFERASE 23 U/L (15-37); BILIRUBIN,TOTAL 0.5 MG/DL (0.2-1.0); BLOOD UREA NITROGEN 19 mg/dL (7-18); CALCIUM 9.3 MG/DL (8.5-10.1); CARBON DIOXIDE 38 MMOL/L (21-32); CHLORIDE 105 MMOL/L (98-107); CHOLESTEROL 151 MG/DL (< 200); CREATINE KINASE 21 U/L (26-308); GAMMA GLUTAMYL TRANSPEPTIDASE 106 U/L (5-85); HDL CHOLESTEROL 45 MG/DL (40-60); PHOSPHORUS 3.8 MG/DL (2.5-4.9); POTASSIUM 4.8 MMOL/L (3.5-5.1); SODIUM 144 MMOL/L (136-145); TRIGLYCERIDES 123 MG/DL (30-150)
[2017-12-06 11:50] VITALS: BP 120/70
--- NOTE | 2017-12-06 12:44 | Pulmonology Progress Note ---
Assessment/Plan Problems: (1) Acute and chronic respiratory failure (2) Pneumonia (3) COPD (chronic obstructive pulmonary disease) (4) Tachycardia (5) Hepatitis C Assessment/Plan improving continue abx check cultures chest PT renal evaluation for Hyperkalemia titrate fio2 to sat of 89-90. bicarb decreasing Subjective ROS Limited/Unobtainable: No Constitutional: Reports: no symptoms HEENT: Repors: no symptoms Respiratory: Reports: no symptoms Allergies: Coded Allergies: Shrimp (Unverified Allergy, Unknown, 12/04/17) Objective Last 24 Hour Vital Signs Date Time Temp Pulse Resp B/P (MAP) Pulse Ox O2 Delivery O2 Flow Rate FiO2 12/06/17 11:50 97.9 95 20 120/70 96 Nasal Cannula 1.0 97.9 12/06/17 08:00 1.0 12/06/17 08:00 98.4 96 21 133/66 96 Nasal Cannula 1.0 98.4 12/06/17 07:35 88 12/06/17 07:31 90 18 Nasal Cannula 1.0 24 12/06/17 07:30 96 Nasal Cannula 1.0 24 12/06/17 07:30 Nasal Cannula 1.0 24 12/06/17 05:49 95 120/71 12/06/17 04:00 88 12/06/17 04:00 1.0 12/06/17 04:00 98.0 89 18 120/71 95 Nasal Cannula 1.0 98.0 12/06/17 00:00 97.7 104 24 117/68 95 Nasal Cannula 1.0 97.7 12/06/17 00:00 98 12/06/17 00:00 1.0 12/05/17 21:28 99 130/76 12/05/17 20:00 91 12/05/17 20:00 1.0 12/05/17 20:00 98.1 99 22 130/76 92 Nasal Cannula 1.0 98.1 12/05/17 19:09 93 Nasal Cannula 1.0 24 12/05/17 19:09 Nasal Cannula 1.0 24 12/05/17 19:09 105 18 Nasal Cannula 1.0 24 12/05/17 16:00 1.0 12/05/17 16:00 103 12/05/17 16:00 98.4 112 20 119/62 94 Nasal Cannula 1.0 98.4 12/05/17 13:12 98 118/76 Intake and Output 12/05/17 12/06/17 19:00 07:00 Intake Total 936.7 ml 500 ml Balance 936.7 ml 500 ml Intake Oral 240 ml 400 ml IV Total 696.7 ml 100 ml # Voids 4 3 General Appearance: WD/WN HEENT: normocephalic, atraumatic Respiratory/Chest: chest wall non-tender, lungs clear Cardiovascular: normal peripheral pulses, normal rate Abdomen: normal bowel sounds, soft, non tender Extremities: no cyanosis Skin: no rash Neurologic/Psychiatric: machine pecan picker II-XII grossly normal Lymphatic: no neck adenopathy Musculoskeletal: normal muscle bulk Microbiology Date/Time Source Procedure Growth Status 12/04/17 12:40 Blood Blood Culture - Preliminary NO GROWTH AFTER 24 HOURS Resulted 12/04/17 12:20 Blood Blood Culture - Preliminary NO GROWTH AFTER 24 HOURS Resulted 12/04/17 12:00 Wound Gram Stain Pending Resulted 12/04/17 12:00 Wound Culture - Preliminary Gram Negative Bacillus 1 Resulted 12/04/17 12:50 Nasal Nares MRSA Culture - Final NO METHICILLIN RESISTANT STAPH AUREUS... Complete 12/04/17 12:40 Nasal Nares Influenza Types A,B Antigen (CHARLES) - Final Complete 12/04/17 12:50 Rectum VRE Culture - Final NO VANCOMYCIN RESISTANT ENTEROCOCCUS ... Complete Laboratory Tests 12/06/17 08:20: Arterial Blood pH 7.280L, Arterial Blood Partial Pressure CO2 84.4*H, Arterial Blood Partial Pressure O2 86.1, Arterial Blood HCO3 39.1H, Arterial Blood Oxygen Saturation 95.5, Arterial Blood Base Excess 9.1, Julius Test Positive 12/06/17 10:20: White Blood Count 9.2, Red Blood Count 4.95, Hemoglobin 13.1, Hematocrit 43.7, Mean Corpuscular Volume 88, Mean Corpuscular Hemoglobin 26.4L, Mean Corpuscular Hemoglobin Concent 29.9L, Red Cell Distribution Width 14.5, Platelet Count 144L , Mean Platelet Volume 7.3, Neutrophils (%) (Auto) 50.7, Lymphocytes (%) (Auto) 40.0, Monocytes (%) (Auto) 6.6, Eosinophils (%) (Auto) 1.1, Basophils (%) (Auto ) 1.7, Sodium Level 144, Potassium Level 4.8, Chloride Level 105, Carbon Dioxide Level 38H, Anion Gap 1L, Blood Urea Nitrogen 19H, Creatinine 1.0, Estimat Glomerular Filtration Rate > 60, Glucose Level 234H, Hemoglobin A1c 8.2H , Uric Acid 4.6, Calcium Level 9.3, Phosphorus Level 3.8, Magnesium Level 1.9, Total Bilirubin 0.5, Gamma Glutamyl Transpeptidase 106H, Aspartate Amino Transf (AST/SGOT) 23, Alanine Aminotransferase (ALT/SGPT) 27, Alkaline Phosphatase 51, Total Creatine Kinase 21L, Pro-B-Type Natriuretic Peptide 191H, Total Protein 7.6, Albumin 3.1L, Globulin 4.5, Albumin/Globulin Ratio 0.7L, Triglycerides Level 123, Cholesterol Level 151, LDL Cholesterol 98, HDL Cholesterol 45, Cholesterol/HDL Ratio 3.4, Thyroid Stimulating Hormone (TSH) 1.297 Current Medications Medications (Trade) Dose Ordered Sig/Hansel Route PRN Reason Start Time Stop Time Status Last Admin Dose Admin Acetaminophen (Tylenol) 650 mg Q4H PRN ORAL FEVER 12/04/17 14:45 01/03/18 14:44 Acetazolamide (Diamox) 250 mg TWICE A DAY ORAL 12/05/17 18:00 01/04/18 17:59 12/06/17 10:15 Albuterol/ Ipratropium (Albuterol/ Ipratropium) 3 ml EVERY 4 HOURS PRN HHN Shortness of Breath 12/04/17 14:45 12/09/17 14:44 Cefepime HCl 1 gm/ Dextrose 55 ml @ 110 mls/hr EVERY 12 HOURS IVPB 12/04/17 21:00 12/11/17 20:59 12/05/17 10:02 Dextrose (Dextrose 50%) STAT PRN IV Hypoglycemia 12/04/17 14:45 01/03/18 14:44 Diltiazem HCl (Cardizem) 30 mg EVERY 8 HOURS ORAL 12/05/17 14:00 01/04/18 13:59 12/06/17 05:49 Heparin Sodium (Porcine) (Heparin 5000 units/ml) 5,000 units EVERY 12 HOURS SUBQ 12/04/17 21:00 01/03/18 20:59 12/05/17 10:04 Insulin Aspart (NovoLOG) BEFORE MEALS AND HS SUBQ 12/04/17 16:30 01/03/18 16:29 12/06/17 12:32 Lorazepam (Ativan 2mg/ml 1ml) 2 mg EVERY 2 HOURS PRN IV For Anxiety 12/04/17 14:45 12/11/17 14:44 12/04/17 21:32 Morphine Sulfate (Morphine Sulfate) 4 mg EVERY 4 HOURS PRN IVP Severe Pain (Pain Scale 7-10) 12/04/17 14:45 12/11/17 14:44 12/04/17 23:43 Ondansetron HCl (Zofran) 4 mg Q6H PRN IVP Nausea & Vomiting 12/04/17 14:45 01/03/18 14:44 Pantoprazole (Protonix) 40 mg DAILY ORAL 12/05/17 11:15 01/04/18 11:14 12/06/17 10:15 Polyethylene Glycol (Miralax) 17 gm DAILYPRN PRN ORAL Constipation 12/04/17 14:45 01/03/18 14:44 Promethazine HCl/ Codeine (Phenergan with Codeine) 5 ml Q4H PRN ORAL For Cough 12/04/17 14:45 01/03/18 14:44 Sodium Chloride 1,000 ml @ 50 mls/hr Q20H IV 12/04/17 17:00 01/03/18 16:59 12/05/17 13:12 Vancomycin HCl (Vanco rx to dose) 1 ea DAILY PRN MISC . 12/04/17 16:00 01/03/18 15:59 Vancomycin HCl 1.25 gm/Dextrose 275 ml @ 183.3 mls/ hr Q24H IVPB 12/05/17 06:00 12/10/17 05:59 12/05/17 06:06 Leni Watts MD Dec 06, 2017 12:44
--- NOTE | 2017-12-06 14:22 | Infectious Diseases Prog Note ---
Assessment/Plan Assessment/Plan Abx: iV Vancomycin 12/04- Cefepime 12/04- Assessment: Acute hypoxic resp failure POssible PNA -CXR: Left pleural effusion. Right perihilar atelectasis. Equivocal right perihilar consolidation and bilateral mild interstitial congestion. -influenza sc neg -sp cx GNB Afebrile, no leukocytosis -u/a wbc 5-10, nit neg, leuk +2 Mild hyperkalemia;' resolved hx of trach s/p removal COPD Hep C Dm2 HTN NH resident Plan: -D/c empiric Vanco #3 -Continue Cefepime #/ pending GNR sp cx -f/u cx -Monitor CBC/BMP, temperatures -aspiration precautions -CXR am Thank you for this consultation. Will continue to follow along with you. Discussed with RN. Subjective Allergies: Coded Allergies: Shrimp (Unverified Allergy, Unknown, 12/04/17) Objective Vital Signs Last 24 Hour Vital Signs Date Time Temp Pulse Resp B/P (MAP) Pulse Ox O2 Delivery O2 Flow Rate FiO2 12/06/17 12:00 1.0 12/06/17 12:00 96 12/06/17 11:50 97.9 95 20 120/70 96 Nasal Cannula 1.0 97.9 12/06/17 08:00 1.0 12/06/17 08:00 98.4 96 21 133/66 96 Nasal Cannula 1.0 98.4 12/06/17 07:35 88 12/06/17 07:31 90 18 Nasal Cannula 1.0 24 12/06/17 07:30 96 Nasal Cannula 1.0 24 12/06/17 07:30 Nasal Cannula 1.0 24 12/06/17 05:49 95 120/71 12/06/17 04:00 88 12/06/17 04:00 1.0 12/06/17 04:00 98.0 89 18 120/71 95 Nasal Cannula 1.0 98.0 12/06/17 00:00 97.7 104 24 117/68 95 Nasal Cannula 1.0 97.7 12/06/17 00:00 98 12/06/17 00:00 1.0 12/05/17 21:28 99 130/76 12/05/17 20:00 91 12/05/17 20:00 1.0 12/05/17 20:00 98.1 99 22 130/76 92 Nasal Cannula 1.0 98.1 12/05/17 19:09 93 Nasal Cannula 1.0 24 12/05/17 19:09 Nasal Cannula 1.0 24 12/05/17 19:09 105 18 Nasal Cannula 1.0 24 12/05/17 16:00 1.0 12/05/17 16:00 103 12/05/17 16:00 98.4 112 20 119/62 94 Nasal Cannula 1.0 98.4 Height (Feet): 5 Height (Inches): 4.00 Weight (Pounds): 155 Objective General Appearance: WD/WN Lines, tubes and drains: peripheral HEENT: normocephalic, atraumatic Neck: non-tender, normal alignment Respiratory/Chest: rhonchi - left, rhonchi - right Cardiovascular/Chest: normal peripheral pulses, normal rate Abdomen: non tender Genitourinary/Rectal: normal genital exam, normal rectal exam Extremities: normal range of motion, non-tender Neurologic: math coach II-XII grossly normal Microbiology Date/Time Source Procedure Growth Status 12/04/17 12:40 Blood Blood Culture - Preliminary NO GROWTH AFTER 24 HOURS Resulted 12/04/17 12:20 Blood Blood Culture - Preliminary NO GROWTH AFTER 24 HOURS Resulted 12/04/17 12:00 Wound Gram Stain Pending Resulted 12/04/17 12:00 Wound Culture - Preliminary Gram Negative Bacillus 1 Resulted 12/04/17 12:50 Nasal Nares MRSA Culture - Final NO METHICILLIN RESISTANT STAPH AUREUS... Complete 12/04/17 12:40 Nasal Nares Influenza Types A,B Antigen (CHARLES) - Final Complete 12/04/17 12:50 Rectum VRE Culture - Final NO VANCOMYCIN RESISTANT ENTEROCOCCUS ... Complete Laboratory Tests Test 12/06/17 08:20 12/06/17 10:20 Arterial Blood pH 7.280 (7.350-7.450) Arterial Blood Partial Pressure CO2 84.4 mmHg (35.0-45.0) *H Arterial Blood Partial Pressure O2 86.1 mmHg (75.0-100.0) Arterial Blood HCO3 39.1 mmol/L (22.0-26.0) H Arterial Blood Oxygen Saturation 95.5 % (92.0-98.0) Arterial Blood Base Excess 9.1 Julius Test Positive White Blood Count 9.2 K/UL (4.8-10.8) Red Blood Count 4.95 M/UL (4.20-5.40) Hemoglobin 13.1 G/DL (12.0-16.0) Hematocrit 43.7 % (37.0-47.0) Mean Corpuscular Volume 88 FL (80-99) Mean Corpuscular Hemoglobin 26.4 PG (27.0-31.0) L Mean Corpuscular Hemoglobin Concent 29.9 G/DL (32.0-36.0) L Red Cell Distribution Width 14.5 % (11.6-14.8) Platelet Count 144 K/UL (150-450) L Mean Platelet Volume 7.3 FL (6.5-10.1) Neutrophils (%) (Auto) 50.7 % (45.0-75.0) Lymphocytes (%) (Auto) 40.0 % (20.0-45.0) Monocytes (%) (Auto) 6.6 % (1.0-10.0) Eosinophils (%) (Auto) 1.1 % (0.0-3.0) Basophils (%) (Auto) 1.7 % (0.0-2.0) Sodium Level 144 MMOL/L (136-145) Potassium Level 4.8 MMOL/L (3.5-5.1) Chloride Level 105 MMOL/L (98-107) Carbon Dioxide Level 38 MMOL/L (21-32) H Anion Gap 1 mmol/L (5-15) L Blood Urea Nitrogen 19 mg/dL (7-18) H Creatinine 1.0 MG/DL (0.55-1.30) Estimat Glomerular Filtration Rate > 60 mL/min (>60) Glucose Level 234 MG/DL (74-106) H Hemoglobin A1c 8.2 % (4.3-6.0) H Uric Acid 4.6 MG/DL (2.6-7.2) Calcium Level 9.3 MG/DL (8.5-10.1) Phosphorus Level 3.8 MG/DL (2.5-4.9) Magnesium Level 1.9 MG/DL (1.8-2.4) Total Bilirubin 0.5 MG/DL (0.2-1.0) Gamma Glutamyl Transpeptidase 106 U/L (5-85) H Aspartate Amino Transf (AST/SGOT) 23 U/L (15-37) Alanine Aminotransferase (ALT/SGPT) 27 U/L (12-78) Alkaline Phosphatase 51 U/L (46-116) Total Creatine Kinase 21 U/L (26-308) L Pro-B-Type Natriuretic Peptide 191 pg/mL (0-125) H Total Protein 7.6 G/DL (6.4-8.2) Albumin 3.1 G/DL (3.4-5.0) L Globulin 4.5 g/dL Albumin/Globulin Ratio 0.7 (1.0-2.7) L Triglycerides Level 123 MG/DL (30-150) Cholesterol Level 151 MG/DL (< 200) LDL Cholesterol 98 mg/dL (<100) HDL Cholesterol 45 MG/DL (40-60) Cholesterol/HDL Ratio 3.4 (3.3-4.4) Thyroid Stimulating Hormone (TSH) 1.297 uiU/mL (0.358-3.740) Current Medications Medications (Trade) Dose Ordered Sig/Hansel Route PRN Reason Start Time Stop Time Status Last Admin Dose Admin Acetaminophen (Tylenol) 650 mg Q4H PRN ORAL FEVER 12/04/17 14:45 01/03/18 14:44 Acetazolamide (Diamox) 250 mg TWICE A DAY ORAL 12/05/17 18:00 01/04/18 17:59 12/06/17 10:15 Albuterol/ Ipratropium (Albuterol/ Ipratropium) 3 ml EVERY 4 HOURS PRN HHN Shortness of Breath 12/04/17 14:45 12/09/17 14:44 Cefepime HCl 1 gm/ Dextrose 55 ml @ 110 mls/hr EVERY 12 HOURS IVPB 12/04/17 21:00 12/11/17 20:59 12/05/17 10:02 Dextrose (Dextrose 50%) STAT PRN IV Hypoglycemia 12/04/17 14:45 01/03/18 14:44 Diltiazem HCl (Cardizem) 30 mg EVERY 8 HOURS ORAL 12/05/17 14:00 01/04/18 13:59 12/06/17 05:49 Heparin Sodium (Porcine) (Heparin 5000 units/ml) 5,000 units EVERY 12 HOURS SUBQ 12/04/17 21:00 01/03/18 20:59 12/05/17 10:04 Insulin Aspart (NovoLOG) BEFORE MEALS AND HS SUBQ 12/04/17 16:30 01/03/18 16:29 12/06/17 12:32 Lorazepam (Ativan 2mg/ml 1ml) 2 mg EVERY 2 HOURS PRN IV For Anxiety 12/04/17 14:45 12/11/17 14:44 12/04/17 21:32 Morphine Sulfate (Morphine Sulfate) 4 mg EVERY 4 HOURS PRN IVP Severe Pain (Pain Scale 7-10) 12/04/17 14:45 12/11/17 14:44 12/04/17 23:43 Ondansetron HCl (Zofran) 4 mg Q6H PRN IVP Nausea & Vomiting 12/04/17 14:45 01/03/18 14:44 Pantoprazole (Protonix) 40 mg DAILY ORAL 12/05/17 11:15 01/04/18 11:14 12/06/17 10:15 Polyethylene Glycol (Miralax) 17 gm DAILYPRN PRN ORAL Constipation 12/04/17 14:45 01/03/18 14:44 Promethazine HCl/ Codeine (Phenergan with Codeine) 5 ml Q4H PRN ORAL For Cough 12/04/17 14:45 01/03/18 14:44 Sodium Chloride 1,000 ml @ 50 mls/hr Q20H IV 12/04/17 17:00 01/03/18 16:59 12/05/17 13:12 Vancomycin HCl (Vanco rx to dose) 1 ea DAILY PRN MISC . 12/04/17 16:00 01/03/18 15:59 Vancomycin HCl 1.25 gm/Dextrose 275 ml @ 183.3 mls/ hr Q24H IVPB 12/05/17 06:00 12/10/17 05:59 12/05/17 06:06 Caterina Elizondo M.D. Dec 06, 2017 14:22
--- NOTE | 2017-12-06 15:14 | Nephrology Progress Note ---
Assessment/Plan Problem List: (1) Hyperkalemia (2) Acidosis (3) CO2 retention Assessment High K due to acidosis and hypoxia Hypoxia Pneumonia HTN COPD DM Hep C Plan change Norvasc to cardiazem on diamox pulmonary support Kayexelate as needed per orders Subjective ROS Limited/Unobtainable: No Constitutional: Reports: malaise Objective Objective Last 24 Hour Vital Signs Date Time Temp Pulse Resp B/P (MAP) Pulse Ox O2 Delivery O2 Flow Rate FiO2 12/06/17 14:22 96 120/70 12/06/17 12:00 1.0 12/06/17 12:00 96 12/06/17 11:50 97.9 95 20 120/70 96 Nasal Cannula 1.0 97.9 12/06/17 08:00 1.0 12/06/17 08:00 98.4 96 21 133/66 96 Nasal Cannula 1.0 98.4 12/06/17 07:35 88 12/06/17 07:31 90 18 Nasal Cannula 1.0 24 12/06/17 07:30 96 Nasal Cannula 1.0 24 12/06/17 07:30 Nasal Cannula 1.0 24 12/06/17 05:49 95 120/71 12/06/17 04:00 88 12/06/17 04:00 1.0 12/06/17 04:00 98.0 89 18 120/71 95 Nasal Cannula 1.0 98.0 12/06/17 00:00 97.7 104 24 117/68 95 Nasal Cannula 1.0 97.7 12/06/17 00:00 98 12/06/17 00:00 1.0 12/05/17 21:28 99 130/76 12/05/17 20:00 91 12/05/17 20:00 1.0 12/05/17 20:00 98.1 99 22 130/76 92 Nasal Cannula 1.0 98.1 12/05/17 19:09 93 Nasal Cannula 1.0 24 12/05/17 19:09 Nasal Cannula 1.0 24 12/05/17 19:09 105 18 Nasal Cannula 1.0 24 12/05/17 16:00 1.0 12/05/17 16:00 103 12/05/17 16:00 98.4 112 20 119/62 94 Nasal Cannula 1.0 98.4 Intake and Output 12/05/17 12/06/17 19:00 07:00 Intake Total 936.7 ml 500 ml Balance 936.7 ml 500 ml Intake Oral 240 ml 400 ml IV Total 696.7 ml 100 ml # Voids 4 3 Laboratory Tests 12/06/17 08:20: Arterial Blood pH 7.280L, Arterial Blood Partial Pressure CO2 84.4*H, Arterial Blood Partial Pressure O2 86.1, Arterial Blood HCO3 39.1H, Arterial Blood Oxygen Saturation 95.5, Arterial Blood Base Excess 9.1, Julius Test Positive 12/06/17 10:20: White Blood Count 9.2, Red Blood Count 4.95, Hemoglobin 13.1, Hematocrit 43.7, Mean Corpuscular Volume 88, Mean Corpuscular Hemoglobin 26.4L, Mean Corpuscular Hemoglobin Concent 29.9L, Red Cell Distribution Width 14.5, Platelet Count 144L , Mean Platelet Volume 7.3, Neutrophils (%) (Auto) 50.7, Lymphocytes (%) (Auto) 40.0, Monocytes (%) (Auto) 6.6, Eosinophils (%) (Auto) 1.1, Basophils (%) (Auto ) 1.7, Sodium Level 144, Potassium Level 4.8, Chloride Level 105, Carbon Dioxide Level 38H, Anion Gap 1L, Blood Urea Nitrogen 19H, Creatinine 1.0, Estimat Glomerular Filtration Rate > 60, Glucose Level 234H, Hemoglobin A1c 8.2H , Uric Acid 4.6, Calcium Level 9.3, Phosphorus Level 3.8, Magnesium Level 1.9, Total Bilirubin 0.5, Gamma Glutamyl Transpeptidase 106H, Aspartate Amino Transf (AST/SGOT) 23, Alanine Aminotransferase (ALT/SGPT) 27, Alkaline Phosphatase 51, Total Creatine Kinase 21L, Pro-B-Type Natriuretic Peptide 191H, Total Protein 7.6, Albumin 3.1L, Globulin 4.5, Albumin/Globulin Ratio 0.7L, Triglycerides Level 123, Cholesterol Level 151, LDL Cholesterol 98, HDL Cholesterol 45, Cholesterol/HDL Ratio 3.4, Thyroid Stimulating Hormone (TSH) 1.297 Height (Feet): 5 Height (Inches): 4.00 Weight (Pounds): 155 General Appearance: no apparent distress, lethargic Respiratory/Chest: decreased breath sounds BUZZ CHAHAL Dec 06, 2017 15:14
[2017-12-06 16:00] VITALS: BP 131/77
[2017-12-06 20:00] VITALS: BP 116/67
[2017-12-07] VITALS: BP 120/69
[2017-12-07] MEDS ORDERED: Albuterol/Ipratropium 3ml neb HHN PRN (01:46)
[2017-12-07] MEDS ORDERED: LORazepam Inj 2mg/ml 1ml IV PRN (02:00)
[2017-12-07] MEDS ORDERED: Promethazine/Codeine 5ml UD ORAL PRN (02:45)
[2017-12-07 04:00] VITALS: BP 125/70
[2017-12-07] MEDS: dilTIAZem HCl 30mg tab ORAL SCH ×3 (06:23→21:08)
[2017-12-07] MEDS: NovoLOG Insulin Flexpen SUBQ SCH ×4 (06:29→21:13)
[2017-12-07 08:00] VITALS: BP 110/59
[2017-12-07] MEDS: Cefepime HCl 1 GM in D5W 55 ML IVPB SCH ×2 (09:00→15:34)
[2017-12-07] MEDS: Heparin 5000 units/ml inj SUBQ SCH ×3 (09:00→21:14)
--- NOTE | 2017-12-07 09:04 | Pulmonology Progress Note ---
Assessment/Plan Assessment/Plan ASSESSMENT acute hypercapnic resp failure requiring BiPAP possible PNA COPD hx of tracheostomy HTN DM Hepatitis C hyperkalemia L pleural effusion PLAN OF CARE MS floor O2 HHN and CPT empiric abx sputum cx if able ID follows blood cx and influenza negative a/tussive prn no evidence of COPD exacerbation DVT prophayxlis Diamox in hope to reset hypercapnia repeated CXR thomas no changes, still with left pleural effusion, stable gentle IVF nephro follows hyperkalemia likely due to acidosis and hypoxia monitor renal parameters, lytes, correct lytes as needed, avoid nephrotoxic BP management with Cardizem and optimize as needed BS management with SS insulin case discussed and evaluated by supervising physician Subjective Allergies: Coded Allergies: Shrimp (Unverified Allergy, Unknown, 12/04/17) Subjective off BiPAP on O2 1 L via NC no signs of resp distress cough, minially productive with white to yellowish phlegm no wheezing, no hemoptysis Objective Last 24 Hour Vital Signs Date Time Temp Pulse Resp B/P (MAP) Pulse Ox O2 Delivery O2 Flow Rate FiO2 12/07/17 07:15 97 Nasal Cannula 1.0 24 12/07/17 07:15 Nasal Cannula 1.0 24 12/07/17 07:15 115 20 Nasal Cannula 1.0 24 12/07/17 06:23 96 120/69 12/07/17 04:00 98.0 96 20 125/70 98 Nasal Cannula 1.0 98.0 12/07/17 00:00 97.7 96 20 120/69 97 Nasal Cannula 1.0 97.7 12/07/17 00:00 1.0 12/06/17 22:00 98 116/67 12/06/17 20:00 1.0 12/06/17 20:00 98 12/06/17 20:00 97.7 95 18 116/67 96 Nasal Cannula 1.0 97.7 12/06/17 16:00 99.0 101 20 131/77 98 Nasal Cannula 1.0 99.0 12/06/17 16:00 99 12/06/17 16:00 1.0 12/06/17 14:22 96 120/70 12/06/17 12:00 1.0 12/06/17 12:00 96 12/06/17 11:50 97.9 95 20 120/70 96 Nasal Cannula 1.0 97.9 Intake and Output 12/06/17 12/07/17 19:00 07:00 Intake Total 450 ml 50 ml Balance 450 ml 50 ml Intake Oral 450 ml 50 ml # Voids 2 2 General Appearance: no acute distress HEENT: normocephalic, atraumatic, anicteric, other - O2 via NC Respiratory/Chest: no respiratory distress, decreased breath sounds Cardiovascular: normal rate Abdomen: soft, non tender, non distended Extremities: no edema, pedal pulses normal Neurologic/Psychiatric: no motor/sensory deficits, alert, responsive Musculoskeletal: normal muscle bulk Microbiology Date/Time Source Procedure Growth Status 12/04/17 12:40 Blood Blood Culture - Preliminary NO GROWTH AFTER 48 HOURS Resulted 12/04/17 12:20 Blood Blood Culture - Preliminary NO GROWTH AFTER 48 HOURS Resulted 12/04/17 12:00 Wound Gram Stain - Final Resulted 12/04/17 12:00 Wound Culture - Preliminary Gram Negative Bacillus 1 Gram Negative Bacillus 2 Resulted 12/04/17 12:50 Nasal Nares MRSA Culture - Final NO METHICILLIN RESISTANT STAPH AUREUS... Complete 12/04/17 12:40 Nasal Nares Influenza Types A,B Antigen (CHARLES) - Final Complete 12/04/17 12:50 Rectum VRE Culture - Final NO VANCOMYCIN RESISTANT ENTEROCOCCUS ... Complete Laboratory Tests 12/06/17 10:20: White Blood Count 9.2, Red Blood Count 4.95, Hemoglobin 13.1, Hematocrit 43.7, Mean Corpuscular Volume 88, Mean Corpuscular Hemoglobin 26.4L, Mean Corpuscular Hemoglobin Concent 29.9L, Red Cell Distribution Width 14.5, Platelet Count 144L , Mean Platelet Volume 7.3, Neutrophils (%) (Auto) 50.7, Lymphocytes (%) (Auto) 40.0, Monocytes (%) (Auto) 6.6, Eosinophils (%) (Auto) 1.1, Basophils (%) (Auto ) 1.7, Sodium Level 144, Potassium Level 4.8, Chloride Level 105, Carbon Dioxide Level 38H, Anion Gap 1L, Blood Urea Nitrogen 19H, Creatinine 1.0, Estimat Glomerular Filtration Rate > 60, Glucose Level 234H, Hemoglobin A1c 8.2H , Uric Acid 4.6, Calcium Level 9.3, Phosphorus Level 3.8, Magnesium Level 1.9, Total Bilirubin 0.5, Gamma Glutamyl Transpeptidase 106H, Aspartate Amino Transf (AST/SGOT) 23, Alanine Aminotransferase (ALT/SGPT) 27, Alkaline Phosphatase 51, Total Creatine Kinase 21L, Pro-B-Type Natriuretic Peptide 191H, Total Protein 7.6, Albumin 3.1L, Globulin 4.5, Albumin/Globulin Ratio 0.7L, Triglycerides Level 123, Cholesterol Level 151, LDL Cholesterol 98, HDL Cholesterol 45, Cholesterol/HDL Ratio 3.4, Thyroid Stimulating Hormone (TSH) 1.297 Current Medications Medications (Trade) Dose Ordered Sig/Hansel Route PRN Reason Start Time Stop Time Status Last Admin Dose Admin Acetaminophen (Tylenol) 650 mg Q4H PRN ORAL FEVER 12/07/17 02:45 01/03/18 14:44 Acetazolamide (Diamox) 250 mg TWICE A DAY ORAL 12/07/17 09:00 01/04/18 17:59 Albuterol/ Ipratropium (Albuterol/ Ipratropium) 3 ml Q4H PRN HHN Shortness of Breath 12/07/17 01:46 12/12/17 01:45 Cefepime HCl 1 gm/ Dextrose 55 ml @ 110 mls/hr EVERY 12 HOURS IVPB 12/07/17 09:00 12/11/17 20:59 Dextrose (Dextrose 50%) STAT PRN IV Hypoglycemia 12/07/17 14:45 01/03/18 14:44 Diltiazem HCl (Cardizem) 30 mg EVERY 8 HOURS ORAL 12/07/17 06:00 01/04/18 13:59 12/07/17 06:23 Heparin Sodium (Porcine) (Heparin 5000 units/ml) 5,000 units EVERY 12 HOURS SUBQ 12/07/17 09:00 01/03/18 20:59 Insulin Aspart (NovoLOG) BEFORE MEALS AND HS SUBQ 12/07/17 06:30 01/03/18 16:29 12/07/17 06:29 Lorazepam (Ativan 2mg/ml 1ml) 2 mg Q2H PRN IV For Anxiety 12/07/17 02:00 12/14/17 01:59 Morphine Sulfate (Morphine Sulfate) 4 mg Q4H PRN IVP Severe Pain (Pain Scale 7-10) 12/07/17 05:00 12/14/17 04:59 Ondansetron HCl (Zofran) 4 mg Q6H PRN IVP Nausea & Vomiting 12/07/17 02:45 01/03/18 14:44 Pantoprazole (Protonix) 40 mg DAILY ORAL 12/07/17 09:00 01/04/18 11:14 Polyethylene Glycol (Miralax) 17 gm DAILYPRN PRN ORAL Constipation 12/07/17 14:45 01/03/18 14:44 Promethazine HCl/ Codeine (Phenergan with Codeine) 5 ml Q4H PRN ORAL For Cough 12/07/17 02:45 01/03/18 14:44 Sodium Chloride 1,000 ml @ 50 mls/hr Q20H IV 12/07/17 01:45 01/03/18 16:59 Kelvin ([facility])Cheryl NP Dec 07, 2017 09:04
[2017-12-07] MEDS ORDERED: Lidocaine 1% Plain 30 ml INJ PRN (10:00)
[2017-12-07] MEDS ORDERED: Heparin 2000 units/Ns 1000ml INJ PRN (10:00)
--- NOTE | 2017-12-07 10:01 | Diagnostic Imaging Report ---
Indication: Reason For Exam: COUGH Technique: One view of the chest Comparison: 12/04/2017 Findings: Left mid lung appears hyperinflated. There is a left-sided pleural effusion again demonstrated.. Atelectasis or scarring appears stable. No new infiltrates. There is mild thoracic scoliotic deformity. Impression: Unchanged left-sided pleural effusion, over 3 days. Other stable findings as described
--- NOTE | 2017-12-07 11:38 | Wound Care Consultation ---
Wound Assessment Wound Assessment #1: Wound Number: 1 Wound Present on Admission: Yes New Wound: No Status Change of Wound: No Wound Location Body Site Modif: mid Wound Location Body Site: coccyx Wound Type: pressure ulcer Nery Test: Does not Nery Pressure Ulcer Stage: Deep Tissue Injury Wound Thickness: Full Thickness Wound Length: 2.5 Wound Width: 2.5 Wound Depth: utd Percent of Wound Purple/Maroon: 100 Wound Drainage Amount: None Wound Drainage Odor: None/Absent Tissue Surrounding Wound: Erythemic Wound General Appearance: Reddened - maroon Wound Assessment #2: Wound Number: 2 Wound Present on Admission: Yes New Wound: No Status Change of Wound: No Wound Location Body Site Modif: mid Wound Location Body Site: sacral Wound Type: pressure ulcer Nery Test: Does not Nery Pressure Ulcer Stage: Deep Tissue Injury Wound Thickness: Full Thickness Wound Length: 4.5 Wound Width: 5.5 Wound Depth: utd Percent of Wound Purple/Maroon: 100 Wound Drainage Amount: None Wound Drainage Odor: None/Absent Tissue Surrounding Wound: Intact Wound General Appearance: Reddened - maroon Wound Assessment #3: Wound Number: 3 Wound Present on Admission: Yes New Wound: No Status Change of Wound: No Wound Location Body Site Modif: left, lower Wound Location Body Site: abdominal fold Wound Type: other - intertrigo Nery Test: Does not Nery Wound Thickness: Partial Thickness Wound Length: 0.8 Wound Width: 2.0 Wound Depth: less than 0.1 Percent of Wound Parcoal/Red: 100 Wound Drainage Description: Serosanguineous Wound Drainage Amount: Scant Wound Drainage Odor: None/Absent Tissue Surrounding Wound: Intact Wound General Appearance: Reddened, Draining Wound Comment #1 Coccyx area DTI pressure ulcer #2 Sacral area DTI pressure ulcer #3 Left lower abdominal fold area intertrigo with partial thickness skin loss Recommendation -Local wound care per protocol -Keep clean and dry -Turn and reposition -Low air loss mattress -Optimize nutrition -Offload both heels -Heel protector on both heels -Assess and f/u accordingly for any changes LAKSHMI LEAVITT RN Dec 07, 2017 11:38
[2017-12-07 12:00] VITALS: BP 108/67
[2017-12-07] MEDS ORDERED: Miralax 17gm pkt ORAL PRN (14:45)
[2017-12-07 16:00] VITALS: BP 110/59
[2017-12-07] MEDS: Morphine Sulfate 4mg/ml Inj IVP PRN (16:49)
--- NOTE | 2017-12-07 17:44 | Diagnostic Imaging Report ---
Indications: Needs long-term IV access Technique: Ultrasound confirms patent compressible right basilic vein. Total sterile technique, including sterile probe cover and sterile gel, hat, mask,, sterile gown, large sterile drape, and preparation with 2% chlorhexidine utilized. Local anesthesia with 1% lidocaine. Under real-time ultrasound guidance, puncture basilic vein using 21-gauge needle, documented and archived, passage 0.018 guidewire under direct fluoroscopy, which was used to determine appropriate catheter length, exchange for 5 [place] peel-away sheath. 5 [place] Bard dual-lumen power PICC cut to 41 cm. It was inserted through the peel-away sheath. Peel-away sheath and guidewire removed. Catheter fixed to the skin. Both catheter ports aspirated and flushed. Patient tolerated procedure well, without immediate complication. Digital radiograph documents satisfactory catheter tip position, at the cavoatrial junction. Total fluoroscopy time 0.3 minutes. Total dose area product 17 dGycm2 Impression: Successful placement of right arm PICC under sonographic and fluoroscopic guidance, as described above.
[2017-12-07 20:00] VITALS: BP 127/73
[2017-12-07] MEDS ORDERED: Dyna-Hex 2% Top Sol 2oz TOPIC SCH (20:00)
[2017-12-08] VITALS: BP 132/78
[2017-12-08 04:00] VITALS: BP 125/72
[2017-12-08] MEDS: Morphine Sulfate 4mg/ml Inj IVP PRN (05:56)
[2017-12-08] MEDS: dilTIAZem HCl 30mg tab ORAL SCH (05:57)
[2017-12-08] MEDS: NovoLOG Insulin Flexpen SUBQ SCH ×2 (06:47→11:30)
[2017-12-08 07:59] LABS: BASOPHILS % (AUTO) 1.4 % (0.0-2.0); EOSINOPHILS % (AUTO) 0.7 % (0.0-3.0); HEMATOCRIT 38.9 % (37.0-47.0); HEMOGLOBIN 11.9 G/DL (12.0-16.0); LYMPHOCYTES % (AUTO) 40.4 % (20.0-45.0); MEAN CORPUSCULAR VOLUME 89 FL (80-99); MONOCYTES % (AUTO) 6.7 % (1.0-10.0); NEUTROPHILS % (AUTO) 50.8 % (45.0-75.0); PLATELET COUNT 131 K/UL (150-450); RED BLOOD COUNT 4.38 M/UL (4.20-5.40); RED CELL DISTRIBUTION WIDTH 14.8 % (11.6-14.8); WHITE BLOOD COUNT 10.7 K/UL (4.8-10.8)
[2017-12-08 08:00] VITALS: BP 114/67
[2017-12-08 08:07] LABS: ANION GAP 2 mmol/L (5-15); BLOOD UREA NITROGEN 20 mg/dL (7-18); CALCIUM 8.6 MG/DL (8.5-10.1); CARBON DIOXIDE 35 MMOL/L (21-32); CHLORIDE 105 MMOL/L (98-107); POTASSIUM 4.1 MMOL/L (3.5-5.1); SODIUM 141 MMOL/L (136-145)
[2017-12-08] MEDS: Cefepime HCl 1 GM in D5W 55 ML IVPB SCH (08:30)
[2017-12-08] MEDS: Heparin 5000 units/ml inj SUBQ SCH (08:31)
--- NOTE | 2017-12-08 09:25 | Pulmonology Progress Note ---
Assessment/Plan Assessment/Plan ASSESSMENT acute hypercapnic resp failure requiring BiPAP-resolved possible PNA COPD hx of tracheostomy HTN DM Hepatitis C hyperkalemia L pleural effusion PLAN OF CARE MS floor O2 HHN and CPT empiric abx sputum cx unable to collect minimally productive cough ID follows blood cx and influenza negative a/tussive prn no evidence of COPD exacerbation DVT prophayxlis Diamox in hope to reset hypercapnia, workingm, Co2 down to 35 repeated CXR today no changes, still with left pleural effusion, stable gentle IVF nephro follows hyperkalemia was likely due to acidosis and hypoxia monitor renal parameters, lytes, correct lytes as needed, avoid nephrotoxic BP management with Cardizem and optimize as needed BS management with SS insulin dc today to SNF on IV abx to compete course case discussed and evaluated by supervising physician Subjective Allergies: Coded Allergies: Shrimp (Unverified Allergy, Unknown, 12/04/17) Subjective off BiPAP on O2 1 L via NC no signs of resp distress cough, minimally productive with white to yellowish phlegm, unable to obtain sputum specimen no wheezing, no hemoptysis CO2 down to 35 on BMP Objective Last 24 Hour Vital Signs Date Time Temp Pulse Resp B/P (MAP) Pulse Ox O2 Delivery O2 Flow Rate FiO2 12/08/17 08:00 98.2 85 20 114/67 97 Nasal Cannula 1.0 98.2 12/08/17 05:57 96 125/73 12/08/17 04:00 97.0 98 19 125/72 97 Nasal Cannula 97.0 12/08/17 00:00 97.1 95 18 132/78 99 Nasal Cannula 1.0 97.1 12/07/17 21:08 101 127/73 12/07/17 20:00 97.0 101 18 127/73 96 Nasal Cannula 1.0 97.0 12/07/17 19:54 105 20 Nasal Cannula 1.0 24 12/07/17 19:54 95 Nasal Cannula 1.0 24 12/07/17 19:54 Nasal Cannula 1.0 24 12/07/17 17:15 98.8 12/07/17 16:49 98.8 12/07/17 16:00 97.5 102 18 110/59 97 Nasal Cannula 1.0 97.5 12/07/17 14:00 102 108/67 12/07/17 12:00 98.8 102 20 108/67 97 Nasal Cannula 1.0 98.8 Intake and Output 12/07/17 12/08/17 19:00 07:00 Intake Total 1015 ml 690 ml Balance 1015 ml 690 ml Intake Oral 960 ml 240 ml IV Total 55 ml 450 ml # Voids 10 3 # Bowel Movements 1 Objective General Appearance: no acute distress HEENT: normocephalic, atraumatic, anicteric, other - O2 via NC Respiratory/Chest: no respiratory distress, decreased breath sounds Cardiovascular: normal rate Abdomen: soft, non tender, non distended Extremities: no edema, pedal pulses normal Neurologic/Psychiatric: no motor/sensory deficits, alert, responsive Musculoskeletal: normal muscle bulk Laboratory Tests 12/08/17 06:30: White Blood Count 10.7, Red Blood Count 4.38, Hemoglobin 11.9L, Hematocrit 38.9 , Mean Corpuscular Volume 89, Mean Corpuscular Hemoglobin 27.0, Mean Corpuscular Hemoglobin Concent 30.4L, Red Cell Distribution Width 14.8, Platelet Count 131L, Mean Platelet Volume 7.2, Neutrophils (%) (Auto) 50.8, Lymphocytes (%) (Auto) 40.4, Monocytes (%) (Auto) 6.7, Eosinophils (%) (Auto) 0.7, Basophils (%) (Auto) 1.4, Sodium Level 141, Potassium Level 4.1, Chloride Level 105, Carbon Dioxide Level 35H, Anion Gap 2L, Blood Urea Nitrogen 20H, Creatinine 1.0, Estimat Glomerular Filtration Rate > 60, Glucose Level 230H, Calcium Level 8.6 Current Medications Medications (Trade) Dose Ordered Sig/Hansel Route PRN Reason Start Time Stop Time Status Last Admin Dose Admin Acetaminophen (Tylenol) 650 mg Q4H PRN ORAL FEVER 12/07/17 02:45 01/03/18 14:44 Acetazolamide (Diamox) 250 mg TWICE A DAY ORAL 12/07/17 09:00 01/04/18 17:59 12/08/17 08:30 Albuterol/ Ipratropium (Albuterol/ Ipratropium) 3 ml Q4H PRN HHN Shortness of Breath 12/07/17 01:46 12/12/17 01:45 Cefepime HCl 1 gm/ Dextrose 55 ml @ 110 mls/hr EVERY 12 HOURS IVPB 3/23/18 09:00 12/11/17 20:59 12/08/17 08:30 Chlorhexidine Gluconate (Jazzmine-Hex 2%) 1 applic DAILY@2000 TOPIC 12/07/17 20:00 01/06/18 19:59 12/07/17 21:08 Dextrose (Dextrose 50%) STAT PRN IV Hypoglycemia 12/07/17 14:45 01/03/18 14:44 Diltiazem HCl (Cardizem) 30 mg EVERY 8 HOURS ORAL 12/07/17 06:00 01/04/18 13:59 12/08/17 05:57 Heparin Sodium (Porcine) (Heparin 5000 units/ml) 5,000 units EVERY 12 HOURS SUBQ 12/07/17 09:00 01/03/18 20:59 Insulin Aspart (NovoLOG) BEFORE MEALS AND HS SUBQ 12/07/17 06:30 01/03/18 16:29 12/08/17 06:47 Lorazepam (Ativan 2mg/ml 1ml) 2 mg Q2H PRN IV For Anxiety 12/07/17 02:00 12/14/17 01:59 Morphine Sulfate (Morphine Sulfate) 4 mg Q4H PRN IVP Severe Pain (Pain Scale 7-10) 12/07/17 05:00 12/14/17 04:59 12/08/17 05:56 Ondansetron HCl (Zofran) 4 mg Q6H PRN IVP Nausea & Vomiting 12/07/17 02:45 01/03/18 14:44 Pantoprazole (Protonix) 40 mg DAILY ORAL 12/07/17 09:00 01/04/18 11:14 12/08/17 08:30 Polyethylene Glycol (Miralax) 17 gm DAILYPRN PRN ORAL Constipation 12/07/17 14:45 01/03/18 14:44 Promethazine HCl/ Codeine (Phenergan with Codeine) 5 ml Q4H PRN ORAL For Cough 12/07/17 02:45 01/03/18 14:44 Sodium Chloride 1,000 ml @ 50 mls/hr Q20H IV 12/07/17 01:45 01/03/18 16:59 12/07/17 21:33 Cheryl Warren NP ([facility]) Dec 08, 2017 09:25
[2017-12-08] MEDS ORDERED: CARDIZEM30 MG ORAL (09:27)
[2017-12-08] MEDS ORDERED: CEFEPIME-D1 GM/50 ML IVPB (09:27)
[2017-12-08 12:00] VITALS: BP 122/64
[2017-12-08] MEDS ORDERED: Tubing IV Secondary IV ONE ×2 (17:04)
[2017-12-08] MEDS ORDERED: 1/2 NS 1000ml IV ONE (17:04)
--- NOTE | 2017-12-11 13:42 | Discharge Summary ---
Discharge Summary Hospital Course Date of Admission Dec 04, 2017 at 13:08 Date of Discharge Dec 08, 2017 at 17:05 Admitting Diagnosis pneumonia HPI Corinna Harris is a 67 year old female who was admitted on Dec 04, 2017 at 13: 08 for Pneumonia Hospital Course dc summary #[id number] Discharge Medications New Medications: Cefepime Hcl/D5w (Cefepime-Dextrose 1 Gm/50 Ml) 1 Gm/50 Ml Piggyback 1 GM IVPB EVERY 12 HOURS, #4 BAG Diltiazem HCl (Diltiazem 12Hr ER) 60 Mg Cap.er.12h 30 MG ORAL EVERY 8 HOURS, #60 CAP Continued Medications: Acetaminophen (Acetaminophen 8 Hour) 650 Mg Tablet 650 MG ORAL Q4HR (This prescription has been renewed) Aspirin* (Aspir 81*) 81 Mg Tablet.dr 81 MG ORAL DAILY, TAB (This prescription has been renewed) Calcium Carbonate (Calcium) 500 Mg Tab.chew 500 MG PO BID, TAB (This prescription has been renewed) Clonidine Hcl* (Catapres*) 0.1 Mg Tablet 0.1 MG ORAL EVERY 6 HOURS PRN (This prescription has been renewed) Cranberry Fruit Concentrate (Cranberry) 450 Mg Capsule 450 MG PO BID, CAP (This prescription has been renewed) Dextran 70/Hypromellose (Artificial Tears Eye Drops*) 15 Ml Drops 1 DROP BOTH EYES, #15 ML 0 Refills (This prescription has been renewed) Docusate Sodium* (Colace*) 100 Mg Capsule 100 MG ORAL DAILY, CAP (This prescription has been renewed) Famotidine (Pepcid) 20 Mg Tablet 20 MG ORAL BEDTIME, #7 TAB 0 Refills (This prescription has been renewed) Metformin Hcl* (Metformin Hcl*) 500 Mg Tablet 500 MG ORAL TWICE A DAY, TAB (This prescription has been renewed) Sennosides (Senna) 8.6 Mg Tablet 8.6 MG PO PRN for Constipation, TAB (This prescription has been renewed) Discharge Condition Upon Discharge: stable Discharge Disposition Patient was discharged to [facility] Kelvin ([facility])Cheryl NP Dec 11, 2017 13:42
--- NOTE | 2017-12-12 02:45 | Discharge Summary 2 SIG ---
DATE OF ADMISSION: 12/04/2017 DATE OF DISCHARGE: 12/08/2017 REASON FOR ADMISSION: The patient is a 67-year-old female with past medical history of chronic obstructive pulmonary disease, hypertension, osteoarthritis, history of prior tracheostomy status post removal, and hepatitis C, presented for evaluation of dyspnea. Upon evaluation in the emergency department, the patient was found to be hypoxic on room air and required nasal cannula. She was on mild/moderate respiratory distress, but was able to speak in complete sentences. The patient was also tachycardic with a heart rate of 114. EKG revealed sinus tachycardia. No acute ischemic changes. Chest x-ray shows questionable possible right-sided infiltrate. No leukocytosis. Stable hemoglobin and hematocrit. Urinalysis with pyuria, +2 leukocyte esterase, but few bacteria. Electrolytes stable. Lactic acid was 1.4. CO2 was above 45. Troponin was negative. Blood pressure was stable. The patient was admitted to [facility] with diagnoses of acute respiratory failure, pneumonia, chronic obstructive pulmonary disease, tachycardia, and hepatitis C. CONSULTANTS: 1. Steve Griffin M.D., Infectious Disease. 2. David Cutler M.D., Nephrology. HOSPITAL COURSE: The patient was admitted to [facility]. The patient was started on the BiPAP. The patient was followed up with ABG and settings were titrated. The patient was started on pulmonary toilet via handheld nebulizing and CPT. The patient was started on empiric antibiotic. ID closely followed. DVT prophylaxis provided. Blood cultures were negative. Influenza screen test was negative. Sputum culture unable to be collected since the patient's cough was minimally productive. Antitussive provided as needed. No evidence of chronic obstructive pulmonary disease exacerbation. The patient was started on Diamox in to recent hypercapnia and it was working. CO2 down to 35. Repeated chest x-ray revealed no changes. Still shows some pleural effusion, but stable. The patient was on gentle IV fluids. Carrot Buncher followed. Initial hyperkalemia was likely due to acidosis and hypoxia and it has resolved. Renal parameters and electrolytes closely monitored. Electrolytes corrected as needed. Nephrotoxics were avoided. Blood pressure was managed with Cardizem and was stable. Blood sugar was managed with sliding scale of insulin. The patient prior to discharge, potassium down to 4.1, was 5.5 the next day after admission. The patient was stable for discharge back to [facility] facility. DISCHARGE MEDICATIONS: See medication reconciliation list. DISCHARGE INSTRUCTIONS: The patient was discharged to [facility] facility. Follow up with the medical doctor at the facility. FINAL DIAGNOSES: 1. Acute hypercapnic respiratory failure requiring BiPAP, resolved. Of note, the patient was initially placed on the BiPAP in the emergency room and transferred to [facility] for further management. 2. Possible pneumonia. 3. Chronic obstructive pulmonary disease. 4. History of tracheostomy. 5. Hypertension. 6. Diabetes. 7. Hepatitis C. 8. Hyperkalemia, resolved. 9. Left pleural effusion, stable. Leni Watts M.D. I have been assigned to dictate discharge summary on this account and I was not involved in the patient's management. Cheryl Warren ([facility]) N.PVictoriano DR: KENNEDY JOB#: [id number] CC:
== END 2017-12-08 17:05 | DRG 133 ==
LOC: EDBD 12:02 → EMR 12:15 → 2W 13:08 → EDBEDREQSVC 13:59 → EDBEDREQ 13:59 → EDBEDREQTM 13:59 → EDBEDREQ 14:26 → 4E 12-07 01:15
PROC: 5A09357 Assistance with Respiratory Ventilation, Less than 24 Consecutive Hours, Continuous Positive Airway Pressure (ICD-10-PCS; principal; 2017-12-04)
PROC: 02HV33Z Insertion of Infusion Device into Superior Vena Cava, Percutaneous Approach (ICD-10-PCS; 2017-12-07)
DX: J96.02 Acute respiratory failure with hypercapnia (principal); J18.9 Pneumonia, unspecified organism; J44.9 Chronic obstructive pulmonary disease, unspecified; I10 Essential (primary) hypertension; E11.9 Type 2 diabetes mellitus without complications; B19.20 Unspecified viral hepatitis C without hepatic coma; R00.0 Tachycardia, unspecified; E87.5 Hyperkalemia
CPT/HCPCS: 36415; 36569; 36600; 71045; 76937; 80048; 80053; 80061; 80069; 81003; 82550; 82803; 82962; 82977; 83036; 83605; 83735; 83880; 84100; 84443; 84484; 84550; 85025; 86140; 86710; 87040; 87070; 87081; 87181; 87205; 93005; 94660; 94664; 94760; 99285; J1815

== ENCOUNTER 2017-12-20 20:19 | Inpatient (IN) | payer MEDICAID ==
[~2017-12-20] VITALS: Ht 162.6 cm; Wt 68.5 kg
[~2017-12-20 20:19] MED LIST changes: +ARTIFICIAL TEAR15 ML BOTH EYES; +ASPIR 8181 MG ORAL; +CALCIUM500 M3 PO; +CARDIZEM30 MG ORAL; +CEFEPIME-D1 GM/50 ML IVPB; +COLACE100 MG ORAL; +CRANBERRY450 M4 PO; +MEGACE ES625 MG/5 M PO; +MILK OF MA400 MG/51 ORAL; +PEPCID20 MG ORAL; +SENNA8.6 M2 PO
[2017-12-20 20:30] VITALS: BP 115/80
[2017-12-20] MEDS ORDERED: Albuterol ud Inhalation HHN ONE (21:30)
[2017-12-20] MEDS ORDERED: Ipratropium 0.02% Inh Soln 2.5ml UD HHN ONE (21:30)
[2017-12-20] MEDS ORDERED: Solu-MEDROL 125mg Inj IVP ONE (21:30)
[2017-12-20] MEDS ORDERED: BISACODYL5 MG RECTAL (21:34)
[2017-12-20] MEDS ORDERED: POLYVINYL ALCOH15 ML OP (21:34)
[2017-12-20] MEDS ORDERED: DUONEB 0.5-3(2.53 ML HHN (21:34)
[2017-12-20] MEDS ORDERED: FLEET ENEMA133 ML RECTAL (21:34)
[2017-12-20] MEDS ORDERED: COLACE100 MG ORAL (21:34)
--- NOTE | 2017-12-20 21:44 | Emergency Room Report ---
History of Present Illness General Chief Complaint: Dyspnea/Respdistress Source: Medical Record, EMS Present Illness HPI Patient presents by paramedics from nursing facility Patient was found to be acutely hypoxic has history of COPD There is a note requesting transfer to [facility] however as the patient was found to be hypoxic was brought to the ER Patient herself has underlying confusion is hypoxic however at times is oriented refusing any intervention Patient does report shortness of breath denies any chest pain denies any back or flank pain History of present illness however does stay Limited given the patient's extremous status Allergies: Coded Allergies: Shrimp (Unverified Allergy, Unknown, 12/04/17) Patient History Limited by: medical condition Past Medical History: see triage record Pertinent Family History: none Now: No Reviewed Nursing Documentation: PMH: Agreed; PSxH: Agreed Nursing Documentation-PMH Hx Hypertension: Yes - Hep C, encephalopathy Hx COPD: Yes Hx Diabetes: Yes Hx Cancer: No History Of Psychiatric Problem: Yes - anxiety Hx Neurological Problems: Yes - headach Review of Systems All Other Systems: limited - Other than the ones mentioned in the history of present illness all others are reviewed however they do stay limited due to the patient's mental status Physical Exam Vital Signs Date Time Temp Pulse Resp B/P (MAP) Pulse Ox O2 Delivery O2 Flow Rate FiO2 12/20/17 20:14 98.6 120 14 115/80 99 Room Air 3.0 98.6 Sp02 EP Interpretation: reviewed, normal, abnormal - The initial documentation reports 99% on room air, patient is saturating at 85% on room air which is low, on 3 L improved to 94% which is normal for the patient General Appearance: severe distress - Patient appear short of breath tachypneic Head: normocephalic, atraumatic Eyes: bilateral eye PERRL, bilateral eye EOMI ENT: normal pharynx, no angioedema Neck: full range of motion, supple Respiratory: respiratory distress, accessory muscle use, crackles Cardiovascular #1: tachycardia Gastrointestinal: non tender, soft Musculoskeletal: other - Patient does not follow commands however moves both upper extremities Neurologic: responsive - to physical stimuli otherwise appears confused Skin: normal color, no rash Lymphatic: no adenopathy Procedures Critical Care Time Critical Care Time 80 minutes for multiple re-evaluations, critical status, multiple re- interventions, concern for acute respiratory failure and possible not including any procedural time Central Line Central Line : Consent: Emergent Central Line Lumen: triple Maximal Sterile Barrier Tech: yes cap, yes mask, yes sterile gown, yes sterile gloves, yes large sterile sheet, yes hand hygiene, yes chlorhexidine prep Central Line Postion: femoral (R) Complications: none Central Line Post Position: sutured Attempts: One Patient Tolerated: Well Complications: None Medical Decision Making Diagnostic Impression: Primary Impression: COPD (chronic obstructive pulmonary disease) Additional Impression: Respiratory distress ER Course Patient is a fairly complex patient with multiple differential to consideration including but not limited to cardiac cardiopulmonary and vascular emergencies Patient presents in extreme status Desaturate significantly requiring BiPAP Patient upon arrival is belligerent and uncooperative possibly secondary to the hypoxia review of medical records reveals recent hospitalization with significant COPD Patient has acute intervention provided Central line is placed At this time patient responsive and verbal airway intubation has not been performed patient's ABG shows pH of over 7.2 with some compensation Labs Test 12/20/17 21:13 12/20/17 21:17 12/20/17 21:55 12/21/17 03:00 Arterial Blood pH 7.266 (7.350-7.450) Arterial Blood Partial Pressure CO2 93.2 mmHg (35.0-45.0) Arterial Blood Partial Pressure O2 34.8 mmHg (75.0-100.0) Arterial Blood HCO3 41.5 mmol/L (22.0-26.0) Arterial Blood Oxygen Saturation 64.2 % (92.0-98.0) Arterial Blood Base Excess 10.7 Julius Test N/a Sodium Level 142 MMOL/L (136-145) 139 MMOL/L (136-145) Potassium Level 4.6 MMOL/L (3.5-5.1) 5.2 MMOL/L (3.5-5.1) Chloride Level 98 MMOL/L (98-107) 100 MMOL/L (98-107) Carbon Dioxide Level 42 MMOL/L (21-32) 39 MMOL/L (21-32) Anion Gap 2 mmol/L (5-15) 0 mmol/L (5-15) Blood Urea Nitrogen 16 mg/dL (7-18) 17 mg/dL (7-18) Creatinine 1.6 MG/DL (0.55-1.30) 1.3 MG/DL (0.55-1.30) Estimat Glomerular Filtration Rate 38.9 mL/min (>60) 49.3 mL/min (>60) Glucose Level 267 MG/DL (74-106) 271 MG/DL (74-106) Lactic Acid Level 4.20 mmol/L (0.66-2.22) 1.30 mmol/L (0.66-2.22) Calcium Level 10.5 MG/DL (8.5-10.1) 9.7 MG/DL (8.5-10.1) Total Bilirubin 0.3 MG/DL (0.2-1.0) 0.3 MG/DL (0.2-1.0) Aspartate Amino Transf (AST/SGOT) 27 U/L (15-37) 22 U/L (15-37) Alanine Aminotransferase (ALT/SGPT) 32 U/L (12-78) 29 U/L (12-78) Alkaline Phosphatase 58 U/L (46-116) 52 U/L (46-116) Total Creatine Kinase 20 U/L (26-308) Creatine Kinase MB < 0.5 NG/ML (0.0-3.6) Creatine Kinase MB Relative Index 2.5 Troponin I 0.039 ng/mL (0.000-0.056) Pro-B-Type Natriuretic Peptide 1281 pg/mL (0-125) Total Protein 7.4 G/DL (6.4-8.2) 7.0 G/DL (6.4-8.2) Albumin 3.3 G/DL (3.4-5.0) 2.9 G/DL (3.4-5.0) Globulin 4.1 g/dL 4.1 g/dL Albumin/Globulin Ratio 0.8 (1.0-2.7) 0.7 (1.0-2.7) White Blood Count 10.1 K/UL (4.8-10.8) 6.1 K/UL (4.8-10.8) Red Blood Count 4.58 M/UL (4.20-5.40) 4.33 M/UL (4.20-5.40) Hemoglobin 11.7 G/DL (12.0-16.0) 11.1 G/DL (12.0-16.0) Hematocrit 40.7 % (37.0-47.0) 38.2 % (37.0-47.0) Mean Corpuscular Volume 89 FL (80-99) 88 FL (80-99) Mean Corpuscular Hemoglobin 25.6 PG (27.0-31.0) 25.7 PG (27.0-31.0) Mean Corpuscular Hemoglobin Concent 28.7 G/DL (32.0-36.0) 29.2 G/DL (32.0-36.0) Red Cell Distribution Width 14.7 % (11.6-14.8) 14.3 % (11.6-14.8) Platelet Count 152 K/UL (150-450) 115 K/UL (150-450) Mean Platelet Volume 7.7 FL (6.5-10.1) 6.9 FL (6.5-10.1) Neutrophils (%) (Auto) 49.0 % (45.0-75.0) % (45.0-75.0) Lymphocytes (%) (Auto) 43.0 % (20.0-45.0) % (20.0-45.0) Monocytes (%) (Auto) 4.5 % (1.0-10.0) % (1.0-10.0) Eosinophils (%) (Auto) 1.2 % (0.0-3.0) % (0.0-3.0) Basophils (%) (Auto) 2.3 % (0.0-2.0) % (0.0-2.0) Test 12/21/17 09:23 12/22/17 05:00 12/22/17 08:45 Arterial Blood pH 7.350 (7.350-7.450) 7.290 (7.350-7.450) Arterial Blood Partial Pressure CO2 72.5 mmHg (35.0-45.0) 88.9 mmHg (35.0-45.0) Arterial Blood Partial Pressure O2 128.2 mmHg (75.0-100.0) 97.7 mmHg (75.0-100.0) Arterial Blood HCO3 39.9 mmol/L (22.0-26.0) 42.3 mmol/L (22.0-26.0) Arterial Blood Oxygen Saturation 98.2 % (92.0-98.0) 96.3 % (92.0-98.0) Arterial Blood Base Excess 11.7 12.3 Julius Test Positive Positive White Blood Count 4.3 K/UL (4.8-10.8) Red Blood Count 4.07 M/UL (4.20-5.40) Hemoglobin 11.0 G/DL (12.0-16.0) Hematocrit 35.3 % (37.0-47.0) Mean Corpuscular Volume 87 FL (80-99) Mean Corpuscular Hemoglobin 27.0 PG (27.0-31.0) Mean Corpuscular Hemoglobin Concent 31.2 G/DL (32.0-36.0) Red Cell Distribution Width 14.0 % (11.6-14.8) Platelet Count 118 K/UL (150-450) Mean Platelet Volume 8.2 FL (6.5-10.1) Neutrophils (%) (Auto) 75.2 % (45.0-75.0) Lymphocytes (%) (Auto) 22.0 % (20.0-45.0) Monocytes (%) (Auto) 2.2 % (1.0-10.0) Eosinophils (%) (Auto) 0.0 % (0.0-3.0) Basophils (%) (Auto) 0.6 % (0.0-2.0) Sodium Level 139 MMOL/L (136-145) Potassium Level 5.2 MMOL/L (3.5-5.1) Chloride Level 100 MMOL/L (98-107) Carbon Dioxide Level 40 MMOL/L (21-32) Anion Gap -3 mmol/L (5-15) Blood Urea Nitrogen 27 mg/dL (7-18) Creatinine 1.3 MG/DL (0.55-1.30) Estimat Glomerular Filtration Rate 49.3 mL/min (>60) Glucose Level 361 MG/DL (74-106) Calcium Level 9.2 MG/DL (8.5-10.1) Phosphorus Level 2.6 MG/DL (2.5-4.9) Magnesium Level 1.8 MG/DL (1.8-2.4) Total Bilirubin 0.2 MG/DL (0.2-1.0) Aspartate Amino Transf (AST/SGOT) 17 U/L (15-37) Alanine Aminotransferase (ALT/SGPT) 26 U/L (12-78) Alkaline Phosphatase 47 U/L (46-116) Total Protein 6.7 G/DL (6.4-8.2) Albumin 2.8 G/DL (3.4-5.0) Globulin 3.9 g/dL Albumin/Globulin Ratio 0.7 (1.0-2.7) Rhythm Strip Diag. Results EP Interpretation: yes Rate: 125 Rhythm: no PVC's, no ectopy, other - Sinus tach Chest X-Ray Diagnostic Results Chest X-Ray Diagnostic Results : Chest X-Ray Ordered: Yes # of Views/Limited/Complete: 1 View Indication: Chest Pain EP Interpretation: Yes Interpretation: no consolidation, no pneumothorax, other - Small lower lobe atelectasis, similar to previous mild interstitial disease Impression: No acute disease Electronically Signed by: Robbin Dawkins DO Last Vital Signs Date Time Temp Pulse Resp B/P (MAP) Pulse Ox O2 Delivery O2 Flow Rate FiO2 4//18 20:14 98.6 120 14 115/80 99 Room Air 3.0 98.6 Status: improved Disposition: ADMITTED INPATIENT Condition: Critical Robbin Dawkins DO Dec 20, 2017 21:44
[2017-12-20] MEDS ORDERED: Nitroglycerin Subl 0.4mg tab SL PRN (21:45)
[2017-12-20] MEDS ORDERED: Albuterol/Ipratropium 3ml neb HHN PRN (21:45)
[2017-12-20] MEDS ORDERED: Promethazine/Codeine 5ml UD ORAL PRN (21:45)
[2017-12-20] MEDS ORDERED: Morphine Sulfate 2mg/ml Inj IVP PRN (21:45)
[2017-12-20 22:08] LABS: BASOPHILS % (AUTO) 2.3 % (0.0-2.0); EOSINOPHILS % (AUTO) 1.2 % (0.0-3.0); HEMATOCRIT 40.7 % (37.0-47.0); HEMOGLOBIN 11.7 G/DL (12.0-16.0); MEAN CORPUSCULAR VOLUME 89 FL (80-99); MONOCYTES % (AUTO) 4.5 % (1.0-10.0); PLATELET COUNT 152 K/UL (150-450); RED BLOOD COUNT 4.58 M/UL (4.20-5.40); RED CELL DISTRIBUTION WIDTH 14.7 % (11.6-14.8); WHITE BLOOD COUNT 10.1 K/UL (4.8-10.8)
[2017-12-20] MEDS ORDERED: Levalbuterol Inh UD 1.25mg/0.5ml HHN ONE (22:15)
[2017-12-20 22:21] LABS: ALANINE AMINOTRANSFERASE 32 U/L (12-78); ALBUMIN 3.3 G/DL (3.4-5.0); ALBUMIN/GLOBULIN RATIO 0.8 (1.0-2.7); ALKALINE PHOSPHATASE 58 U/L (46-116); ASPARTATE AMINO TRANSFERASE 27 U/L (15-37); BILIRUBIN,TOTAL 0.3 MG/DL (0.2-1.0); BLOOD UREA NITROGEN 16 mg/dL (7-18); CALCIUM 10.5 MG/DL (8.5-10.1); CKMB < 0.5 NG/ML (0.0-3.6); CREATINE KINASE 20 U/L (26-308); CREATININE 1.6 MG/DL (0.55-1.30)
[2017-12-20 22:33] LABS: CHLORIDE 98 MMOL/L (98-107); POTASSIUM 4.6 MMOL/L (3.5-5.1); SODIUM 142 MMOL/L (136-145)
[2017-12-20 22:34] LABS: ANION GAP 2 mmol/L (5-15); CARBON DIOXIDE 42 MMOL/L (21-32)
[2017-12-20 23:00] VITALS: BP 132/73
[2017-12-21] VITALS (24 sets, daily range): BP systolic 96–146; BP diastolic 54–98
[2017-12-21] MEDS: LORazepam Inj 2mg/ml 1ml IV PRN ×3 (00:31→12:50)
[2017-12-21 04:50] LABS: HEMATOCRIT 38.2 % (37.0-47.0); HEMOGLOBIN 11.1 G/DL (12.0-16.0); MEAN CORPUSCULAR VOLUME 88 FL (80-99); PLATELET COUNT 115 K/UL (150-450); RED BLOOD COUNT 4.33 M/UL (4.20-5.40); RED CELL DISTRIBUTION WIDTH 14.3 % (11.6-14.8); WHITE BLOOD COUNT 6.1 K/UL (4.8-10.8)
[2017-12-21 05:42] LABS: ALANINE AMINOTRANSFERASE 29 U/L (12-78); ALBUMIN 2.9 G/DL (3.4-5.0); ALBUMIN/GLOBULIN RATIO 0.7 (1.0-2.7); ALKALINE PHOSPHATASE 52 U/L (46-116); ANION GAP 0 mmol/L (5-15); ASPARTATE AMINO TRANSFERASE 22 U/L (15-37); BILIRUBIN,TOTAL 0.3 MG/DL (0.2-1.0); BLOOD UREA NITROGEN 17 mg/dL (7-18); CALCIUM 9.7 MG/DL (8.5-10.1); CARBON DIOXIDE 39 MMOL/L (21-32); CHLORIDE 100 MMOL/L (98-107); CREATININE 1.3 MG/DL (0.55-1.30); POTASSIUM 5.2 MMOL/L (3.5-5.1); SODIUM 139 MMOL/L (136-145)
[2017-12-21] MEDS: Solu-MEDROL 125mg Inj IV SCH ×5 (06:31→23:53)
[2017-12-21] MEDS: NovoLOG Insulin Flexpen SUBQ SCH ×4 (06:44→21:48)
[2017-12-21] MEDS: Heparin 5000 units/ml inj SUBQ SCH ×2 (09:00→21:50)
--- NOTE | 2017-12-21 09:38 | Diagnostic Imaging Report ---
Indication: Shortness of breath Technique: One view of the chest Comparison: 12/20/2017 Findings: Small left sided pleural effusion is again demonstrated. Equivocal slight interstitial congestive changes persist although may be minimally improved. The heart size is normal. Impression: Mild interstitial congestion, perhaps slightly improved over one day Stable small left pleural effusion
--- NOTE | 2017-12-21 10:41 | Diagnostic Imaging Report ---
Indication: Shortness of breath Technique: One view of the chest Comparison: 12/07/2017 Findings: There is blunting of the left costophrenic sulcus. There is mild bilateral interstitial congestion, perhaps slightly increased from the previous study. There is slight increased lucency of the left midlung, likely an artifact of patient rotation. Normal heart size Impression: Left costophrenic sulcus blunting, likely small pleural effusion, but similarity to the prior exam. Indicate that this represents chronic pleural thickening instead Mild interstitial congestion
--- NOTE | 2017-12-21 11:24 | History and Physical ---
History of Present Illness General Date patient seen: Dec 21, 2017 Reason for Hospitalization: Dyspnea/Respdistress Present Illness HPI 67 year old female with hx of COPD, HTN, DM, alf resident presented to ER by paramedics with CC of acute hypoxemia. Patient did report shortness of breath. Pt was in respiratory failure and was put on BIPAP and transferred to ICU. Allergies: Coded Allergies: Shrimp (Unverified Allergy, Unknown, 12/04/17) Medication History Scheduled Acetaminophen (Acetaminophen), 325 MG RECTAL Q4H, (Reported) Acetaminophen (Acetaminophen 8 Hour), 650 MG ORAL Q4HR, (Reported) Albuterol Sulfate* (Albuterol Sulfate Hhn*), 2.5 MG HHN Q4H, (Reported) Amlodipine Besylate (Norvasc), 5 MG ORAL DAILY, (Reported) Amlodipine Besylate (Norvasc), 5 MG ORAL DAILY, (Reported) Aspirin* (Aspir 81*), 81 MG ORAL DAILY, (Reported) Bisacodyl* (Dulcolax*), 10 MG RECTAL DAILY, (Reported) Calcium Carbonate (Calcium), 500 MG PO BID, (Reported) Cefepime Hcl/D5w (Cefepime-Dextrose 1 Gm/50 Ml), 1 GM IVPB EVERY 12 HOURS Cranberry Fruit Concentrate (Cranberry), 450 MG PO BID, (Reported) Diltiazem HCl (Diltiazem 12Hr ER), 30 MG ORAL EVERY 8 HOURS Docusate Sodium* (Colace*), 100 MG ORAL DAILY, (Reported) Docusate Sodium* (Colace*), 100 MG ORAL DAILY, (Reported) Famotidine (Pepcid), 20 MG ORAL BEDTIME, (Reported) Insulin Detemir (Levemir), 30 SUBQ 6AM, (Reported) Insulin Detemir (Levemir), 18 SUBQ 6PM, (Reported) Ipratropium/Albuterol Sulfate (DuoNeb 0.5-3(2.5)mg/3ml), 3 ML HHN Q4HR, ( Reported) Magnesium Hydroxide* (Milk Of Magnesia*), 30 ML ORAL DAILY, (Reported) Metformin Hcl* (Metformin Hcl*), 500 MG ORAL TWICE A DAY, (Reported) Metoclopramide Hcl* (Reglan*), 10 MG ORAL THREE TIMES A DAY, (Reported) Na Phos,M-B/Na Phos,Di-Ba* (Fleet Enema*), 133 ML RECTAL DAILY, (Reported) Polyvinyl Alcohol (Polyvinyl Alcohol), 15 ML OP DAILY, (Reported) Scheduled PRN Clonidine Hcl* (Catapres*), 0.1 MG ORAL EVERY 6 HOURS PRN, (Reported) Diphenoxylate Hcl/Atropine (Lomotil Tablet), 25 MG ORAL QID PRN, (Reported) Lorazepam* (Ativan*), 2 MG ORAL BEDTIME PRN, (Reported) Magnesium Hydroxide (Milk of Magnesia), 30 ML ORAL DAILY PRN, (Reported) Sennosides (Senna), 8.6 MG PO for Constipation, (Reported) Miscellaneous Medications Dextran 70/Hypromellose (Artificial Tears Eye Drops*), 1 DROP BOTH EYES, ( Reported) Ipratropium [place] (Atrovent), 500 MCG HHN, (Reported) Megestrol Acetate (Megace Es), 40 MG PO, (Reported) Patient History Healthcare decision maker Resuscitation status Full Code Advanced Directive on File No Past Medical/Surgical History Past Medical/Surgical History: (1) Hepatitis C (2) COPD (chronic obstructive pulmonary disease) Review of Systems All Other Systems: negative except mentioned in HPI Physical Exam General Appearance: cachetic Lines, tubes and drains: peripheral HEENT: normocephalic, atraumatic Neck: non-tender, normal alignment Respiratory/Chest: chest wall non-tender, lungs clear Breasts: no masses Cardiovascular/Chest: normal peripheral pulses, normal rate Abdomen: normal bowel sounds, soft Genitourinary/Rectal: normal genital exam Extremities: normal range of motion Skin Exam: normal pigmentation Neurologic: tailer out II-XII grossly normal Lymphatic: anterior cervical Last 24 Hour Vital Signs Date Time Temp Pulse Resp B/P (MAP) Pulse Ox O2 Delivery O2 Flow Rate FiO2 12/21/17 11:00 118 16 96/55 100 Bi-pap 40 12/21/17 10:00 115 16 122/80 100 Bi-pap 40 12/21/17 09:12 96 18 100 Nasal 40 12/21/17 09:00 98 110/58 12/21/17 09:00 122 18 124/83 100 Bi-pap 40 12/21/17 08:00 98.8 99 16 107/71 100 Bi-pap 40 98.8 12/21/17 08:00 99 12/21/17 08:00 40 12/21/17 07:16 96 16 100 Nasal 40 12/21/17 07:00 101 16 115/59 100 Bi-pap 40 12/21/17 06:00 99 16 106/59 100 Bi-pap 40 12/21/17 05:25 97 16 100 Nasal 40 12/21/17 05:00 101 17 101/62 100 Bi-pap 40 12/21/17 04:00 98.6 102 22 146/98 100 Bi-pap 40 98.6 12/21/17 03:00 102 19 118/65 100 Bi-pap 40 12/21/17 02:41 101 17 100 Nasal 40 12/21/17 02:00 106 24 104/54 100 Bi-pap 40 12/21/17 01:40 105 18 100 Full Face 40 12/21/17 01:00 102 20 103/86 100 Bi-pap 40 12/21/17 00:00 97.7 110 24 128/71 100 Bi-pap 40 97.7 12/21/17 00:00 110 12/21/17 00:00 40 12/20/17 23:40 98.6 115 19 132/73 100 3.0 40 98.6 12/20/17 23:29 108 19 100 Full Face 40 12/20/17 23:00 115 18 132/73 100 Bi-pap 12/20/17 22:41 60 12/20/17 22:41 109 24 100 Bi-pap 60 12/20/17 22:07 118 24 100 Bi-pap 65 12/20/17 21:25 123 22 100 Bi-pap 75 12/20/17 21:25 123 22 100 Full Face 75 12/20/17 21:25 75 12/20/17 21:25 123 22 Bi-pap 75 12/20/17 20:30 120 14 Room Air 3.0 12/20/17 20:30 98.6 14 115/80 99 Room Air 3.0 98.6 12/20/17 20:14 98.6 120 14 115/80 99 Room Air 3.0 98.6 Intake and Output 12/20/17 12/21/17 19:00 07:00 Intake Total 1200 ml Output Total 220 ml Balance 980 ml Intake Oral 0 ml IV Total 1200 ml Output Urine Total 220 ml Laboratory Tests Test 12/20/17 21:13 12/20/17 21:17 12/20/17 21:55 12/21/17 03:00 Arterial Blood pH 7.266 (7.350-7.450) Arterial Blood Partial Pressure CO2 93.2 mmHg (35.0-45.0) *H Arterial Blood Partial Pressure O2 34.8 mmHg (75.0-100.0) Arterial Blood HCO3 41.5 mmol/L (22.0-26.0) H Arterial Blood Oxygen Saturation 64.2 % (92.0-98.0) L Arterial Blood Base Excess 10.7 Julius Test N/a Sodium Level 142 MMOL/L (136-145) 139 MMOL/L (136-145) Potassium Level 4.6 MMOL/L (3.5-5.1) 5.2 MMOL/L (3.5-5.1) H Chloride Level 98 MMOL/L (98-107) 100 MMOL/L (98-107) Carbon Dioxide Level 42 MMOL/L (21-32) *H 39 MMOL/L (21-32) H Anion Gap 2 mmol/L (5-15) L 0 mmol/L (5-15) L Blood Urea Nitrogen 16 mg/dL (7-18) 17 mg/dL (7-18) Creatinine 1.6 MG/DL (0.55-1.30) H 1.3 MG/DL (0.55-1.30) Estimat Glomerular Filtration Rate 38.9 mL/min (>60) 49.3 mL/min (>60) Glucose Level 267 MG/DL (74-106) H 271 MG/DL (74-106) H Lactic Acid Level 4.20 mmol/L (0.66-2.22) H 1.30 mmol/L (0.66-2.22) Calcium Level 10.5 MG/DL (8.5-10.1) H 9.7 MG/DL (8.5-10.1) Total Bilirubin 0.3 MG/DL (0.2-1.0) 0.3 MG/DL (0.2-1.0) Aspartate Amino Transf (AST/SGOT) 27 U/L (15-37) 22 U/L (15-37) Alanine Aminotransferase (ALT/SGPT) 32 U/L (12-78) 29 U/L (12-78) Alkaline Phosphatase 58 U/L (46-116) 52 U/L (46-116) Total Creatine Kinase 20 U/L (26-308) L Creatine Kinase MB < 0.5 NG/ML (0.0-3.6) Creatine Kinase MB Relative Index 2.5 Troponin I 0.039 ng/mL (0.000-0.056) Pro-B-Type Natriuretic Peptide 1281 pg/mL (0-125) H Total Protein 7.4 G/DL (6.4-8.2) 7.0 G/DL (6.4-8.2) Albumin 3.3 G/DL (3.4-5.0) L 2.9 G/DL (3.4-5.0) L Globulin 4.1 g/dL 4.1 g/dL Albumin/Globulin Ratio 0.8 (1.0-2.7) L 0.7 (1.0-2.7) L White Blood Count 10.1 K/UL (4.8-10.8) 6.1 K/UL (4.8-10.8) Red Blood Count 4.58 M/UL (4.20-5.40) 4.33 M/UL (4.20-5.40) Hemoglobin 11.7 G/DL (12.0-16.0) L 11.1 G/DL (12.0-16.0) L Hematocrit 40.7 % (37.0-47.0) 38.2 % (37.0-47.0) Mean Corpuscular Volume 89 FL (80-99) 88 FL (80-99) Mean Corpuscular Hemoglobin 25.6 PG (27.0-31.0) L 25.7 PG (27.0-31.0) L Mean Corpuscular Hemoglobin Concent 28.7 G/DL (32.0-36.0) L 29.2 G/DL (32.0-36.0) L Red Cell Distribution Width 14.7 % (11.6-14.8) 14.3 % (11.6-14.8) Platelet Count 152 K/UL (150-450) 115 K/UL (150-450) L Mean Platelet Volume 7.7 FL (6.5-10.1) 6.9 FL (6.5-10.1) Neutrophils (%) (Auto) 49.0 % (45.0-75.0) % (45.0-75.0) Lymphocytes (%) (Auto) 43.0 % (20.0-45.0) % (20.0-45.0) Monocytes (%) (Auto) 4.5 % (1.0-10.0) % (1.0-10.0) Eosinophils (%) (Auto) 1.2 % (0.0-3.0) % (0.0-3.0) Basophils (%) (Auto) 2.3 % (0.0-2.0) H % (0.0-2.0) Test 12/21/17 09:23 Arterial Blood pH 7.350 (7.350-7.450) Arterial Blood Partial Pressure CO2 72.5 mmHg (35.0-45.0) *H Arterial Blood Partial Pressure O2 128.2 mmHg (75.0-100.0) H Arterial Blood HCO3 39.9 mmol/L (22.0-26.0) H Arterial Blood Oxygen Saturation 98.2 % (92.0-98.0) H Arterial Blood Base Excess 11.7 Julius Test Positive Height (Feet): 5 Height (Inches): 4.00 Weight (Pounds): 135 Medications Current Medications Medications (Trade) Dose Ordered Sig/Hansel Route PRN Reason Start Time Stop Time Status Last Admin Dose Admin Acetaminophen (Tylenol) 650 mg Q4H PRN ORAL fever 12/20/17 21:45 01/19/18 21:44 Albuterol/ Ipratropium (Albuterol/ Ipratropium) 3 ml EVERY 4 HOURS PRN HHN dyspnea 12/20/17 21:45 12/25/17 21:44 Amlodipine Besylate (Norvasc) 5 mg DAILY ORAL 12/21/17 09:00 01/20/18 08:59 Clonidine HCl (Catapres Tab) 0.1 mg EVERY 4 HOURS PRN ORAL sbp more than 160 12/20/17 21:45 01/19/18 21:44 Dextrose (Dextrose 50%) STAT PRN IV Hypoglycemia 12/20/17 21:45 01/19/18 21:44 Dextrose (Dextrose 50%) STAT PRN IV Hypoglycemia 12/20/17 21:45 01/19/18 21:44 Heparin Sodium (Porcine) (Heparin 5000 units/ml) 5,000 units EVERY 12 HOURS SUBQ 12/21/17 09:00 01/20/18 08:59 Insulin Aspart (NovoLOG) BEFORE MEALS AND HS SUBQ 12/21/17 06:30 01/20/18 06:29 12/21/17 06:44 Levofloxacin 100 ml @ 100 mls/hr Q24H IVPB 12/20/17 22:00 12/27/17 21:59 12/21/17 00:44 Lorazepam (Ativan 2mg/ml 1ml) 0.5 mg Q4H PRN IV For Anxiety 12/20/17 21:45 12/27/17 21:44 12/21/17 04:33 Methylprednisolone Sodium Succinate (Solu-MEDROL) 60 mg EVERY 6 HOURS IV 12/21/17 00:00 01/20/18 00:00 12/21/17 06:31 Morphine Sulfate (Morphine Sulfate) 2 mg EVERY 4 HOURS PRN IVP severe pain 7-10 12/20/17 21:45 12/27/17 21:44 Nitroglycerin (Ntg) 0.4 mg Q5M X 3 DOSES PRN SL Prn Chest Pain 12/20/17 21:45 01/19/18 21:44 Ondansetron HCl (Zofran) 4 mg Q6H PRN IVP Nausea & Vomiting 12/20/17 21:45 01/19/18 21:44 Promethazine HCl/ Codeine (Phenergan with Codeine) 5 ml EVERY 6 HOURS PRN ORAL cough 12/20/17 21:45 01/19/18 21:44 Temazepam (Restoril) 15 mg HSPRN PRN ORAL Insomnia 12/20/17 21:45 12/27/17 21:44 Assessment/Plan Problem List: (1) Acute and chronic respiratory failure ICD Codes: J96.20 - Acute and chronic respiratory failure, unspecified whether with hypoxia or hypercapnia SNOMED: 56227975 (2) COPD (chronic obstructive pulmonary disease) ICD Codes: J44.9 - Chronic obstructive pulmonary disease, unspecified SNOMED: 13081170 (3) Hepatitis C ICD Codes: B19.20 - Unspecified viral hepatitis C without hepatic coma SNOMED: 42397090 Respiratory: monitor respiratory rate, adjust FIO2, CXR Cardiac: continue to monitor HR/BP Infectious Disease: check cultures, continue antibiotics Gastrointestinal: start feedings Endocrine: monitor blood sugar Hematologic: monitor H/H, transfuse if hgb<8.5 Neurologic: PRN Ativan, keep patient comfortable Affect: PRN ativan Time Spent (Minutes): 40 Notes Reviewed: capacity planning manager, renal Discussed with: nurses, consultants, case planner Leni Watts MD Dec 21, 2017 11:24
--- NOTE | 2017-12-21 19:03 | Consultation ---
History of Present Illness General Date patient seen: Dec 21, 2017 Chief Complaint: Dyspnea/Respdistress Present Illness HPI 67 year old female with hx of COPD, HTN, DM, longterm resident presented to ER by paramedics with CC of acute hypoxemia. the pt was agitated and delusional she has vh Allergies: Coded Allergies: Shrimp (Unverified Allergy, Unknown, 12/04/17) Medication History Scheduled Acetaminophen (Acetaminophen), 325 MG RECTAL Q4H, (Reported) Acetaminophen (Acetaminophen 8 Hour), 650 MG ORAL Q4HR, (Reported) Albuterol Sulfate* (Albuterol Sulfate Hhn*), 2.5 MG HHN Q4H, (Reported) Amlodipine Besylate (Norvasc), 5 MG ORAL DAILY, (Reported) Amlodipine Besylate (Norvasc), 5 MG ORAL DAILY, (Reported) Aspirin* (Aspir 81*), 81 MG ORAL DAILY, (Reported) Bisacodyl* (Dulcolax*), 10 MG RECTAL DAILY, (Reported) Calcium Carbonate (Calcium), 500 MG PO BID, (Reported) Cefepime Hcl/D5w (Cefepime-Dextrose 1 Gm/50 Ml), 1 GM IVPB EVERY 12 HOURS Cranberry Fruit Concentrate (Cranberry), 450 MG PO BID, (Reported) Diltiazem HCl (Diltiazem 12Hr ER), 30 MG ORAL EVERY 8 HOURS Docusate Sodium* (Colace*), 100 MG ORAL DAILY, (Reported) Docusate Sodium* (Colace*), 100 MG ORAL DAILY, (Reported) Famotidine (Pepcid), 20 MG ORAL BEDTIME, (Reported) Insulin Detemir (Levemir), 30 SUBQ 6AM, (Reported) Insulin Detemir (Levemir), 18 SUBQ 6PM, (Reported) Ipratropium/Albuterol Sulfate (DuoNeb 0.5-3(2.5)mg/3ml), 3 ML HHN Q4HR, ( Reported) Magnesium Hydroxide* (Milk Of Magnesia*), 30 ML ORAL DAILY, (Reported) Metformin Hcl* (Metformin Hcl*), 500 MG ORAL TWICE A DAY, (Reported) Metoclopramide Hcl* (Reglan*), 10 MG ORAL THREE TIMES A DAY, (Reported) Na Phos,M-B/Na Phos,Di-Ba* (Fleet Enema*), 133 ML RECTAL DAILY, (Reported) Polyvinyl Alcohol (Polyvinyl Alcohol), 15 ML OP DAILY, (Reported) Scheduled PRN Clonidine Hcl* (Catapres*), 0.1 MG ORAL EVERY 6 HOURS PRN, (Reported) Diphenoxylate Hcl/Atropine (Lomotil Tablet), 25 MG ORAL QID PRN, (Reported) Lorazepam* (Ativan*), 2 MG ORAL BEDTIME PRN, (Reported) Magnesium Hydroxide (Milk of Magnesia), 30 ML ORAL DAILY PRN, (Reported) Sennosides (Senna), 8.6 MG PO for Constipation, (Reported) Miscellaneous Medications Dextran 70/Hypromellose (Artificial Tears Eye Drops*), 1 DROP BOTH EYES, ( Reported) Ipratropium [place] (Atrovent), 500 MCG HHN, (Reported) Megestrol Acetate (Megace Es), 40 MG PO, (Reported) Patient History Limited by: medical condition History Provided By: Patient, Medical Record, PMD Healthcare decision maker Resuscitation status Full Code Advanced Directive on File No Review of Systems Psychiatric: Reports: anxiety, depressed feelings, emotional problems Physical Exam General Appearance: no apparent distress, alert, agitated Last 24 Hour Vital Signs Date Time Temp Pulse Resp B/P (MAP) Pulse Ox O2 Delivery O2 Flow Rate FiO2 12/21/17 18:00 98.8 108 22 118/65 100 Nasal Cannula 2.0 98.8 12/21/17 17:06 98 12/21/17 17:00 104 24 101/58 100 Nasal Cannula 2.0 12/21/17 16:00 112 12/21/17 16:00 116 22 116/66 100 Nasal Cannula 2.0 12/21/17 15:06 99 98 12/21/17 15:00 123 24 112/65 100 Nasal Cannula 2.0 12/21/17 14:00 117 22 115/60 100 Nasal Cannula 2.0 12/21/17 13:00 118 22 125/68 100 Nasal Cannula 2.0 12/21/17 12:43 113 22 99 12/21/17 12:00 98.6 101 20 112/63 100 Nasal Cannula 2.0 98.6 12/21/17 12:00 115 12/21/17 11:00 101 20 125/68 100 Bi-pap 40 12/21/17 10:36 116 28 100 Nasal 40 12/21/17 10:00 96 19 109/60 98 Bi-pap 40 12/21/17 09:12 96 18 100 Nasal 40 12/21/17 09:00 98 110/58 12/21/17 09:00 96 18 110/65 100 Bi-pap 30 12/21/17 08:00 98.8 99 16 107/71 100 Bi-pap 40 98.8 12/21/17 08:00 99 12/21/17 08:00 40 12/21/17 07:16 96 16 100 Nasal 40 12/21/17 07:00 101 16 115/59 100 Bi-pap 40 12/21/17 06:00 99 16 106/59 100 Bi-pap 40 12/21/17 05:25 97 16 100 Nasal 40 12/21/17 05:00 101 17 101/62 100 Bi-pap 40 12/21/17 04:00 98.6 102 22 146/98 100 Bi-pap 40 98.6 12/21/17 03:00 102 19 118/65 100 Bi-pap 40 12/21/17 02:41 101 17 100 Nasal 40 12/21/17 02:00 106 24 104/54 100 Bi-pap 40 12/21/17 01:40 105 18 100 Full Face 40 12/21/17 01:00 102 20 103/86 100 Bi-pap 40 12/21/17 00:00 97.7 110 24 128/71 100 Bi-pap 40 97.7 12/21/17 00:00 110 12/21/17 00:00 40 12/20/17 23:40 98.6 115 19 132/73 100 3.0 40 98.6 12/20/17 23:29 108 19 100 Full Face 40 12/20/17 23:00 115 18 132/73 100 Bi-pap 12/20/17 22:41 60 18 22:41 109 24 100 Bi-pap 60 12/20/17 22:07 118 24 100 Bi-pap 65 18 21:25 123 22 100 Bi-pap 75 12/20/18 21:25 123 22 100 Full Face 75 12/20/17 21:25 75 4//18 21:25 123 22 Bi-pap 75 4/5/18 20:30 120 14 Room Air 3.0 12/20/17 20:30 98.6 14 115/80 99 Room Air 3.0 98.6 12/20/17 20:14 98.6 120 14 115/80 99 Room Air 3.0 98.6 Intake and Output 12/20/17 12/21/17 19:00 07:00 Intake Total 1200 ml Output Total 220 ml Balance 980 ml Intake Oral 0 ml IV Total 1200 ml Output Urine Total 220 ml Laboratory Tests Test 12/20/17 21:13 12/20/17 21:17 12/20/17 21:55 12/21/17 03:00 Arterial Blood pH 7.266 (7.350-7.450) Arterial Blood Partial Pressure CO2 93.2 mmHg (35.0-45.0) *H Arterial Blood Partial Pressure O2 34.8 mmHg (75.0-100.0) Arterial Blood HCO3 41.5 mmol/L (22.0-26.0) H Arterial Blood Oxygen Saturation 64.2 % (92.0-98.0) L Arterial Blood Base Excess 10.7 Julius Test N/a Sodium Level 142 MMOL/L (136-145) 139 MMOL/L (136-145) Potassium Level 4.6 MMOL/L (3.5-5.1) 5.2 MMOL/L (3.5-5.1) H Chloride Level 98 MMOL/L (98-107) 100 MMOL/L (98-107) Carbon Dioxide Level 42 MMOL/L (21-32) *H 39 MMOL/L (21-32) H Anion Gap 2 mmol/L (5-15) L 0 mmol/L (5-15) L Blood Urea Nitrogen 16 mg/dL (7-18) 17 mg/dL (7-18) Creatinine 1.6 MG/DL (0.55-1.30) H 1.3 MG/DL (0.55-1.30) Estimat Glomerular Filtration Rate 38.9 mL/min (>60) 49.3 mL/min (>60) Glucose Level 267 MG/DL (74-106) H 271 MG/DL (74-106) H Lactic Acid Level 4.20 mmol/L (0.66-2.22) H 1.30 mmol/L (0.66-2.22) Calcium Level 10.5 MG/DL (8.5-10.1) H 9.7 MG/DL (8.5-10.1) Total Bilirubin 0.3 MG/DL (0.2-1.0) 0.3 MG/DL (0.2-1.0) Aspartate Amino Transf (AST/SGOT) 27 U/L (15-37) 22 U/L (15-37) Alanine Aminotransferase (ALT/SGPT) 32 U/L (12-78) 29 U/L (12-78) Alkaline Phosphatase 58 U/L (46-116) 52 U/L (46-116) Total Creatine Kinase 20 U/L (26-308) L Creatine Kinase MB < 0.5 NG/ML (0.0-3.6) Creatine Kinase MB Relative Index 2.5 Troponin I 0.039 ng/mL (0.000-0.056) Pro-B-Type Natriuretic Peptide 1281 pg/mL (0-125) H Total Protein 7.4 G/DL (6.4-8.2) 7.0 G/DL (6.4-8.2) Albumin 3.3 G/DL (3.4-5.0) L 2.9 G/DL (3.4-5.0) L Globulin 4.1 g/dL 4.1 g/dL Albumin/Globulin Ratio 0.8 (1.0-2.7) L 0.7 (1.0-2.7) L White Blood Count 10.1 K/UL (4.8-10.8) 6.1 K/UL (4.8-10.8) Red Blood Count 4.58 M/UL (4.20-5.40) 4.33 M/UL (4.20-5.40) Hemoglobin 11.7 G/DL (12.0-16.0) L 11.1 G/DL (12.0-16.0) L Hematocrit 40.7 % (37.0-47.0) 38.2 % (37.0-47.0) Mean Corpuscular Volume 89 FL (80-99) 88 FL (80-99) Mean Corpuscular Hemoglobin 25.6 PG (27.0-31.0) L 25.7 PG (27.0-31.0) L Mean Corpuscular Hemoglobin Concent 28.7 G/DL (32.0-36.0) L 29.2 G/DL (32.0-36.0) L Red Cell Distribution Width 14.7 % (11.6-14.8) 14.3 % (11.6-14.8) Platelet Count 152 K/UL (150-450) 115 K/UL (150-450) L Mean Platelet Volume 7.7 FL (6.5-10.1) 6.9 FL (6.5-10.1) Neutrophils (%) (Auto) 49.0 % (45.0-75.0) % (45.0-75.0) Lymphocytes (%) (Auto) 43.0 % (20.0-45.0) % (20.0-45.0) Monocytes (%) (Auto) 4.5 % (1.0-10.0) % (1.0-10.0) Eosinophils (%) (Auto) 1.2 % (0.0-3.0) % (0.0-3.0) Basophils (%) (Auto) 2.3 % (0.0-2.0) H % (0.0-2.0) Test 12/21/17 09:23 Arterial Blood pH 7.350 (7.350-7.450) Arterial Blood Partial Pressure CO2 72.5 mmHg (35.0-45.0) *H Arterial Blood Partial Pressure O2 128.2 mmHg (75.0-100.0) H Arterial Blood HCO3 39.9 mmol/L (22.0-26.0) H Arterial Blood Oxygen Saturation 98.2 % (92.0-98.0) H Arterial Blood Base Excess 11.7 Julius Test Positive Height (Feet): 5 Height (Inches): 4.00 Weight (Pounds): 135 Medications Current Medications Medications (Trade) Dose Ordered Sig/Hansel Route PRN Reason Start Time Stop Time Status Last Admin Dose Admin Acetaminophen (Tylenol) 650 mg Q4H PRN ORAL fever 12/20/17 21:45 01/19/18 21:44 Albuterol/ Ipratropium (Albuterol/ Ipratropium) 3 ml EVERY 4 HOURS PRN HHN dyspnea 12/20/17 21:45 12/25/17 21:44 Amlodipine Besylate (Norvasc) 5 mg DAILY ORAL 12/21/17 09:00 01/20/18 08:59 Chlorhexidine Gluconate (Jazzmine-Hex 2%) 1 applic DAILY@2000 TOPIC 12/21/17 20:00 01/20/18 19:59 Clonidine HCl (Catapres Tab) 0.1 mg EVERY 4 HOURS PRN ORAL sbp more than 160 12/20/17 21:45 01/19/18 21:44 Dextrose (Dextrose 50%) STAT PRN IV Hypoglycemia 12/20/17 21:45 01/19/18 21:44 Dextrose (Dextrose 50%) STAT PRN IV Hypoglycemia 12/20/17 21:45 01/19/18 21:44 Heparin Sodium (Porcine) (Heparin 5000 units/ml) 5,000 units EVERY 12 HOURS SUBQ 12/21/17 09:00 01/20/18 08:59 Insulin Aspart (NovoLOG) BEFORE MEALS AND HS SUBQ 12/21/17 06:30 01/20/18 06:29 12/21/17 16:38 Levofloxacin 100 ml @ 100 mls/hr Q24H IVPB 12/20/17 22:00 12/27/17 21:59 12/21/17 00:44 Lorazepam (Ativan 2mg/ml 1ml) 0.5 mg Q4H PRN IV For Anxiety 12/20/17 21:45 12/27/17 21:44 12/21/17 12:50 Methylprednisolone Sodium Succinate (Solu-MEDROL) 60 mg EVERY 6 HOURS IV 12/21/17 00:00 01/20/18 00:00 12/21/17 18:00 Morphine Sulfate (Morphine Sulfate) 2 mg EVERY 4 HOURS PRN IVP severe pain 7-10 12/20/17 21:45 12/27/17 21:44 Nitroglycerin (Ntg) 0.4 mg Q5M X 3 DOSES PRN SL Prn Chest Pain 12/20/17 21:45 01/19/18 21:44 Ondansetron HCl (Zofran) 4 mg Q6H PRN IVP Nausea & Vomiting 12/20/17 21:45 01/19/18 21:44 Promethazine HCl/ Codeine (Phenergan with Codeine) 5 ml EVERY 6 HOURS PRN ORAL cough 12/20/17 21:45 01/19/18 21:44 Risperidone (RisperDAL) 1 mg BID ORAL 12/21/17 13:15 01/20/18 13:14 12/21/17 12:57 Temazepam (Restoril) 15 mg HSPRN PRN ORAL Insomnia 12/20/17 21:45 12/27/17 21:44 Assessment/Plan Assessment/Plan 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 Dec 21, 2017 19:03
[2017-12-21] MEDS: Dyna-Hex 2% Top Sol 2oz TOPIC SCH (20:21)
--- NOTE | 2017-12-21 21:11 | Wound Care Consultation ---
Wound Assessment Wound Assessment : Wound Number: 1 Wound Present on Admission: Yes New Wound: No Status Change of Wound: No Wound Location Body Site Modif: mid Wound Location Body Site: sacral Wound Type: pressure ulcer Nery Test: Does not Nery Pressure Ulcer Stage: II Wound Thickness: Partial Thickness Wound Length: 2.5 Wound Width: 2.0 Wound Depth: less than 0.1 Percent of Wound Celoron/Red: 100 Wound Drainage Amount: None Wound Drainage Odor: None/Absent Tissue Surrounding Wound: scar tissue Wound General Appearance: Reddened Wound Comment #1 Sacral area stage II pressure ulcer #2 Dryness on left and right toes Recommendation -Local wound care per protocol -Offload both heels -Heel protector on both heels -Apply A&D oint on left and right toe -Optimize nutrition -Keep clean and dry -Turn and reposition -Low air loss mattress -Assess and f/u accordingly for any changes LAKSHMI LEAVITT RN Dec 21, 2017 21:11
[2017-12-21] MEDS: Vitamin A&D Oint 2oz Tube TOPIC SCH (23:01)
[2017-12-22] VITALS (24 sets, daily range): BP systolic 101–139; BP diastolic 51–79
[2017-12-22] MEDS: LORazepam Inj 2mg/ml 1ml IV PRN ×2 (04:31→19:45)
[2017-12-22 05:58] LABS: BASOPHILS % (AUTO) 0.6 % (0.0-2.0); HEMATOCRIT 35.3 % (37.0-47.0); MEAN CORPUSCULAR VOLUME 87 FL (80-99); MONOCYTES % (AUTO) 2.2 % (1.0-10.0); NEUTROPHILS % (AUTO) 75.2 % (45.0-75.0); PLATELET COUNT 118 K/UL (150-450); RED BLOOD COUNT 4.07 M/UL (4.20-5.40); WHITE BLOOD COUNT 4.3 K/UL (4.8-10.8)
[2017-12-22 06:13] LABS: ALANINE AMINOTRANSFERASE 26 U/L (12-78); ALBUMIN 2.8 G/DL (3.4-5.0); ALBUMIN/GLOBULIN RATIO 0.7 (1.0-2.7); ALKALINE PHOSPHATASE 47 U/L (46-116); ANION GAP -3 mmol/L (5-15); ASPARTATE AMINO TRANSFERASE 17 U/L (15-37); BILIRUBIN,TOTAL 0.2 MG/DL (0.2-1.0); BLOOD UREA NITROGEN 27 mg/dL (7-18); CALCIUM 9.2 MG/DL (8.5-10.1); CHLORIDE 100 MMOL/L (98-107); CREATININE 1.3 MG/DL (0.55-1.30); PHOSPHORUS 2.6 MG/DL (2.5-4.9); POTASSIUM 5.2 MMOL/L (3.5-5.1); SODIUM 139 MMOL/L (136-145)
[2017-12-22 06:14] LABS: CARBON DIOXIDE 40 MMOL/L (21-32)
[2017-12-22] MEDS: Solu-MEDROL 125mg Inj IV SCH ×4 (06:29→23:32)
[2017-12-22] MEDS: NovoLOG Insulin Flexpen SUBQ SCH ×4 (06:31→20:54)
[2017-12-22] MEDS: Heparin 5000 units/ml inj SUBQ SCH ×2 (08:08→21:22)
[2017-12-22] MEDS: Vitamin A&D Oint 2oz Tube TOPIC SCH ×2 (08:13→20:51)
--- NOTE | 2017-12-22 09:44 | Pulmonolgy Critical Care Note ---
Critical Care - Asmt/Plan Problems: (1) Acute and chronic respiratory failure (2) COPD (chronic obstructive pulmonary disease) (3) Hepatitis C Respiratory: monitor respiratory rate, adjust FIO2, CXR Cardiac: continue to monitor HR/BP Renal: F/U I&O, keep IV fluid Infectious Disease: check cultures Gastrointestinal: continue feedings/current rate Endocrine: monitor blood sugar Hematologic: monitor H/H Neurologic: PRN Morphine Affect: PRN ativan Prophylaxis: Protonix Disposition: keep in ICU Notes Reviewed: inpatient coder, cardio Discussed with: nurses, consultants, counter casermanager services - Objective Last 24 Hour Vital Signs Date Time Temp Pulse Resp B/P (MAP) Pulse Ox O2 Delivery O2 Flow Rate FiO2 12/22/17 09:00 123 33 139/60 98 Nasal Cannula 2.0 12/22/17 08:07 116 117/61 12/22/17 08:00 98.0 135 28 120/73 100 Nasal Cannula 2.0 98.0 12/22/17 08:00 125 12/22/17 07:00 119 27 117/61 100 Nasal Cannula 2.0 12/22/17 06:50 100 12/22/17 06:00 110 24 117/61 100 Nasal Cannula 2.0 12/22/17 05:00 103 22 116/54 100 Nasal Cannula 2.0 12/22/17 04:00 104 12/22/17 04:00 98.2 104 22 104/70 100 Nasal Cannula 2.0 98.2 12/22/17 03:38 100 12/22/17 03:00 120 22 110/51 100 Nasal Cannula 2.0 12/22/17 02:00 123 22 101/51 100 Nasal Cannula 2.0 12/22/17 01:00 110 32 116/62 100 Nasal Cannula 2.0 12/22/17 00:49 99 12/22/17 00:06 99 12/22/17 00:00 98.0 120 32 110/62 100 Nasal Cannula 2.0 98.0 12/22/17 00:00 108 12/21/17 23:00 120 31 114/70 100 Nasal Cannula 2.0 12/21/17 22:00 121 32 101/63 100 Nasal Cannula 2.0 12/21/17 21:26 98 12/21/17 21:00 131 20 112/55 100 Nasal Cannula 2.0 12/21/17 20:00 98.4 114 20 102/58 100 Nasal Cannula 2.0 98.4 12/21/17 20:00 120 12/21/17 19:50 114 18 100 Facial 30 12/21/17 19:00 106 20 116/66 100 Nasal Cannula 2.0 12/21/17 18:00 98.8 108 22 118/65 100 Nasal Cannula 2.0 98.8 12/21/17 17:06 98 12/21/17 17:00 104 24 101/58 100 Nasal Cannula 2.0 12/21/17 16:00 112 12/21/17 16:00 116 22 116/66 100 Nasal Cannula 2.0 12/21/17 15:06 99 98 12/21/17 15:00 123 24 112/65 100 Nasal Cannula 2.0 12/21/17 14:00 117 22 115/60 100 Nasal Cannula 2.0 12/21/17 13:00 118 22 125/68 100 Nasal Cannula 2.0 12/21/17 12:43 113 22 99 12/21/17 12:00 98.6 101 20 112/63 100 Nasal Cannula 2.0 98.6 12/21/17 12:00 115 12/21/17 11:00 101 20 125/68 100 Bi-pap 40 12/21/17 10:36 116 28 100 Nasal 40 12/21/17 10:00 96 19 109/60 98 Bi-pap 40 Status: awake Condition: critical HEENT: atraumatic, normocephalic Neck: full ROM Lungs: clear Heart: HR/BP stable Abdomen: soft, non-tender Extremities: no C/C/E, edema Decubiti: stage Micro: Microbiology Date/Time Source Procedure Growth Status 12/20/17 21:20 Blood Blood Culture - Preliminary NO GROWTH AFTER 24 HOURS Resulted 12/20/17 21:05 Blood Blood Culture - Preliminary NO GROWTH AFTER 24 HOURS Resulted 12/20/17 23:19 Rectum VRE Culture - Preliminary Resulted Accucheck: 319 Critical Care - Subjective ROS Limited/Unobtainable: No Condition: critical EKG Rhythm: Sinus Rhythm FI02: 30 Sputum Amount: None I&O: Intake and Output 12/21/17 12/22/17 19:00 07:00 Intake Total 0 ml 130 ml Output Total 480 ml 6 ml Balance -480 ml 124 ml Intake Oral 0 ml 130 ml Output Urine Total 480 ml 6 ml # Voids 3 CXR: no change, ET in a good position Labs: Laboratory Tests Test 12/22/17 05:00 12/22/17 08:45 White Blood Count 4.3 K/UL (4.8-10.8) L Red Blood Count 4.07 M/UL (4.20-5.40) L Hemoglobin 11.0 G/DL (12.0-16.0) L Hematocrit 35.3 % (37.0-47.0) L Mean Corpuscular Volume 87 FL (80-99) Mean Corpuscular Hemoglobin 27.0 PG (27.0-31.0) Mean Corpuscular Hemoglobin Concent 31.2 G/DL (32.0-36.0) L Red Cell Distribution Width 14.0 % (11.6-14.8) Platelet Count 118 K/UL (150-450) L Mean Platelet Volume 8.2 FL (6.5-10.1) Neutrophils (%) (Auto) 75.2 % (45.0-75.0) H Lymphocytes (%) (Auto) 22.0 % (20.0-45.0) Monocytes (%) (Auto) 2.2 % (1.0-10.0) Eosinophils (%) (Auto) 0.0 % (0.0-3.0) Basophils (%) (Auto) 0.6 % (0.0-2.0) Sodium Level 139 MMOL/L (136-145) Potassium Level 5.2 MMOL/L (3.5-5.1) H Chloride Level 100 MMOL/L (98-107) Carbon Dioxide Level 40 MMOL/L (21-32) H Anion Gap -3 mmol/L (5-15) L Blood Urea Nitrogen 27 mg/dL (7-18) H Creatinine 1.3 MG/DL (0.55-1.30) Estimat Glomerular Filtration Rate 49.3 mL/min (>60) Glucose Level 361 MG/DL (74-106) H Calcium Level 9.2 MG/DL (8.5-10.1) Phosphorus Level 2.6 MG/DL (2.5-4.9) Magnesium Level 1.8 MG/DL (1.8-2.4) Total Bilirubin 0.2 MG/DL (0.2-1.0) Aspartate Amino Transf (AST/SGOT) 17 U/L (15-37) Alanine Aminotransferase (ALT/SGPT) 26 U/L (12-78) Alkaline Phosphatase 47 U/L (46-116) Total Protein 6.7 G/DL (6.4-8.2) Albumin 2.8 G/DL (3.4-5.0) L Globulin 3.9 g/dL Albumin/Globulin Ratio 0.7 (1.0-2.7) L Arterial Blood pH 7.290 (7.350-7.450) Arterial Blood Partial Pressure CO2 88.9 mmHg (35.0-45.0) *H Arterial Blood Partial Pressure O2 97.7 mmHg (75.0-100.0) Arterial Blood HCO3 42.3 mmol/L (22.0-26.0) H Arterial Blood Oxygen Saturation 96.3 % (92.0-98.0) Arterial Blood Base Excess 12.3 Julius Test Positive Leni Watts MD Dec 22, 2017 09:44
--- NOTE | 2017-12-22 09:54 | Diagnostic Imaging Report ---
Indication: Dyspnea Comparison: 468 A single view chest radiograph was obtained. Findings: No definite infiltrate or pulmonary vascular congestion identified. The heart is enlarged. The aorta is mildly enlarged consistent with atherosclerotic vascular disease. The bones are osteopenic. Impression: No acute disease
--- NOTE | 2017-12-22 15:54 | Consultation ---
History of Present Illness General Date patient seen: Dec 22, 2017 Time patient seen: 15:36 Chief Complaint: Dyspnea/Respdistress Present Illness HPI 67 year old female with hx of COPD, HTN, DM, Hep C, Anxiety, snf resident is brought to ED on 12/20 due to hypoxia, SOB, agitation and delusion at snf. In ED required bipap and transferred to ICU. Denies CP, back pain. Afebrile, no leukocytosis. Now off bipap and on 2 L NC. CXR no PNA. Of note, patient recently admitted here from 12/04-12/07 for SOB, tachycardia, hypoxia, Hyper K and acidosis. Treated for possible PNA with 7 days of Cefepime. Sp cx grew davila S E.coli and P. mirabilis. Allergies: Coded Allergies: Shrimp (Unverified Allergy, Unknown, 12/04/17) Medication History Scheduled Acetaminophen (Acetaminophen), 325 MG RECTAL Q4H, (Reported) Acetaminophen (Acetaminophen 8 Hour), 650 MG ORAL Q4HR, (Reported) Albuterol Sulfate* (Albuterol Sulfate Hhn*), 2.5 MG HHN Q4H, (Reported) Amlodipine Besylate (Norvasc), 5 MG ORAL DAILY, (Reported) Amlodipine Besylate (Norvasc), 5 MG ORAL DAILY, (Reported) Aspirin* (Aspir 81*), 81 MG ORAL DAILY, (Reported) Bisacodyl* (Dulcolax*), 10 MG RECTAL DAILY, (Reported) Calcium Carbonate (Calcium), 500 MG PO BID, (Reported) Cefepime Hcl/D5w (Cefepime-Dextrose 1 Gm/50 Ml), 1 GM IVPB EVERY 12 HOURS Cranberry Fruit Concentrate (Cranberry), 450 MG PO BID, (Reported) Diltiazem HCl (Diltiazem 12Hr ER), 30 MG ORAL EVERY 8 HOURS Docusate Sodium* (Colace*), 100 MG ORAL DAILY, (Reported) Docusate Sodium* (Colace*), 100 MG ORAL DAILY, (Reported) Famotidine (Pepcid), 20 MG ORAL BEDTIME, (Reported) Insulin Detemir (Levemir), 30 SUBQ 6AM, (Reported) Insulin Detemir (Levemir), 18 SUBQ 6PM, (Reported) Ipratropium/Albuterol Sulfate (DuoNeb 0.5-3(2.5)mg/3ml), 3 ML HHN Q4HR, ( Reported) Magnesium Hydroxide* (Milk Of Magnesia*), 30 ML ORAL DAILY, (Reported) Metformin Hcl* (Metformin Hcl*), 500 MG ORAL TWICE A DAY, (Reported) Metoclopramide Hcl* (Reglan*), 10 MG ORAL THREE TIMES A DAY, (Reported) Na Phos,M-B/Na Phos,Di-Ba* (Fleet Enema*), 133 ML RECTAL DAILY, (Reported) Polyvinyl Alcohol (Polyvinyl Alcohol), 15 ML OP DAILY, (Reported) Scheduled PRN Clonidine Hcl* (Catapres*), 0.1 MG ORAL EVERY 6 HOURS PRN, (Reported) Diphenoxylate Hcl/Atropine (Lomotil Tablet), 25 MG ORAL QID PRN, (Reported) Lorazepam* (Ativan*), 2 MG ORAL BEDTIME PRN, (Reported) Magnesium Hydroxide (Milk of Magnesia), 30 ML ORAL DAILY PRN, (Reported) Sennosides (Senna), 8.6 MG PO for Constipation, (Reported) Miscellaneous Medications Dextran 70/Hypromellose (Artificial Tears Eye Drops*), 1 DROP BOTH EYES, ( Reported) Ipratropium [place] (Atrovent), 500 MCG HHN, (Reported) Megestrol Acetate (Megace Es), 40 MG PO, (Reported) Patient History Healthcare decision maker Resuscitation status Full Code Advanced Directive on File No Patient History Narrative Pmhx: as above Shx: reviewed Fhx: non contributory Physical Exam Physical Exam Narrative General Appearance: cachetic Lines, tubes and drains: peripheral HEENT: normocephalic, atraumatic Neck: non-tender, normal alignment Respiratory/Chest: chest wall non-tender, lungs clear Breasts: no masses Cardiovascular/Chest: normal peripheral pulses, normal rate Abdomen: normal bowel sounds, soft Genitourinary/Rectal: normal genital exam Extremities: normal range of motion Skin Exam: normal pigmentation Neurologic: editor book II-XII grossly normal Lymphatic: anterior cervical Last 24 Hour Vital Signs Date Time Temp Pulse Resp B/P (MAP) Pulse Ox O2 Delivery O2 Flow Rate FiO2 12/22/17 14:47 99 4/7/18 14:00 137 25 125/69 93 Nasal Cannula 2.0 12/22/17 13:00 133 27 128/72 96 Nasal Cannula 2.0 12/22/17 12:56 99 12/22/17 12:36 98.6 134 28 120/73 84 Nasal Cannula 2.0 98.6 12/22/17 12:00 98.6 134 28 120/73 84 Nasal Cannula 2.0 98.6 12/22/17 12:00 129 12/22/17 11:00 122 27 136/62 98 Nasal Cannula 2.0 12/22/17 10:51 98 12/22/17 10:00 123 33 139/60 98 Nasal Cannula 2.0 12/22/17 09:00 123 33 139/60 98 Nasal Cannula 2.0 12/22/17 08:55 134 26 96 Full Face 30 12/22/17 08:07 116 117/61 12/22/17 08:00 98.0 135 28 120/73 100 Nasal Cannula 2.0 98.0 12/22/17 08:00 125 12/22/17 07:00 119 27 117/61 100 Nasal Cannula 2.0 12/22/17 06:50 100 12/22/17 06:00 110 24 117/61 100 Nasal Cannula 2.0 12/22/17 05:00 103 22 116/54 100 Nasal Cannula 2.0 12/22/17 04:00 104 12/22/17 04:00 98.2 104 22 104/70 100 Nasal Cannula 2.0 98.2 12/22/17 03:38 100 12/22/17 03:00 120 22 110/51 100 Nasal Cannula 2.0 12/22/17 02:00 123 22 101/51 100 Nasal Cannula 2.0 12/22/17 01:00 110 32 116/62 100 Nasal Cannula 2.0 12/22/17 00:49 99 12/22/17 00:06 99 12/22/17 00:00 98.0 120 32 110/62 100 Nasal Cannula 2.0 98.0 12/22/17 00:00 108 12/21/17 23:00 120 31 114/70 100 Nasal Cannula 2.0 12/21/17 22:00 121 32 101/63 100 Nasal Cannula 2.0 12/21/17 21:26 98 12/21/17 21:00 131 20 112/55 100 Nasal Cannula 2.0 12/21/17 20:00 98.4 114 20 102/58 100 Nasal Cannula 2.0 98.4 12/21/17 20:00 120 12/21/17 19:50 114 18 100 Facial 30 12/21/17 19:00 106 20 116/66 100 Nasal Cannula 2.0 12/21/17 18:00 98.8 108 22 118/65 100 Nasal Cannula 2.0 98.8 12/21/17 17:06 98 12/21/17 17:00 104 24 101/58 100 Nasal Cannula 2.0 12/21/17 16:00 112 12/21/17 16:00 116 22 116/66 100 Nasal Cannula 2.0 Intake and Output 12/21/17 12/22/17 19:00 07:00 Intake Total 0 ml 130 ml Output Total 480 ml 6 ml Balance -480 ml 124 ml Intake Oral 0 ml 130 ml Output Urine Total 480 ml 6 ml # Voids 3 Laboratory Tests Test 12/22/17 05:00 12/22/17 08:45 White Blood Count 4.3 K/UL (4.8-10.8) L Red Blood Count 4.07 M/UL (4.20-5.40) L Hemoglobin 11.0 G/DL (12.0-16.0) L Hematocrit 35.3 % (37.0-47.0) L Mean Corpuscular Volume 87 FL (80-99) Mean Corpuscular Hemoglobin 27.0 PG (27.0-31.0) Mean Corpuscular Hemoglobin Concent 31.2 G/DL (32.0-36.0) L Red Cell Distribution Width 14.0 % (11.6-14.8) Platelet Count 118 K/UL (150-450) L Mean Platelet Volume 8.2 FL (6.5-10.1) Neutrophils (%) (Auto) 75.2 % (45.0-75.0) H Lymphocytes (%) (Auto) 22.0 % (20.0-45.0) Monocytes (%) (Auto) 2.2 % (1.0-10.0) Eosinophils (%) (Auto) 0.0 % (0.0-3.0) Basophils (%) (Auto) 0.6 % (0.0-2.0) Sodium Level 139 MMOL/L (136-145) Potassium Level 5.2 MMOL/L (3.5-5.1) H Chloride Level 100 MMOL/L (98-107) Carbon Dioxide Level 40 MMOL/L (21-32) H Anion Gap -3 mmol/L (5-15) L Blood Urea Nitrogen 27 mg/dL (7-18) H Creatinine 1.3 MG/DL (0.55-1.30) Estimat Glomerular Filtration Rate 49.3 mL/min (>60) Glucose Level 361 MG/DL (74-106) H Calcium Level 9.2 MG/DL (8.5-10.1) Phosphorus Level 2.6 MG/DL (2.5-4.9) Magnesium Level 1.8 MG/DL (1.8-2.4) Total Bilirubin 0.2 MG/DL (0.2-1.0) Aspartate Amino Transf (AST/SGOT) 17 U/L (15-37) Alanine Aminotransferase (ALT/SGPT) 26 U/L (12-78) Alkaline Phosphatase 47 U/L (46-116) Total Protein 6.7 G/DL (6.4-8.2) Albumin 2.8 G/DL (3.4-5.0) L Globulin 3.9 g/dL Albumin/Globulin Ratio 0.7 (1.0-2.7) L Arterial Blood pH 7.290 (7.350-7.450) Arterial Blood Partial Pressure CO2 88.9 mmHg (35.0-45.0) *H Arterial Blood Partial Pressure O2 97.7 mmHg (75.0-100.0) Arterial Blood HCO3 42.3 mmol/L (22.0-26.0) H Arterial Blood Oxygen Saturation 96.3 % (92.0-98.0) Arterial Blood Base Excess 12.3 Julius Test Positive Height (Feet): 5 Height (Inches): 4.00 Weight (Pounds): 137 Medications Current Medications Medications (Trade) Dose Ordered Sig/Hansel Route PRN Reason Start Time Stop Time Status Last Admin Dose Admin Acetaminophen (Tylenol) 650 mg Q4H PRN ORAL fever 12/20/17 21:45 01/19/18 21:44 Albuterol/ Ipratropium (Albuterol/ Ipratropium) 3 ml EVERY 4 HOURS PRN HHN dyspnea 12/20/17 21:45 12/25/17 21:44 Amlodipine Besylate (Norvasc) 5 mg DAILY ORAL 12/21/17 09:00 01/20/18 08:59 12/22/17 08:07 Chlorhexidine Gluconate (Jazzmine-Hex 2%) 1 applic DAILY@2000 TOPIC 12/21/17 20:00 01/20/18 19:59 12/21/17 20:21 Clonidine HCl (Catapres Tab) 0.1 mg EVERY 4 HOURS PRN ORAL sbp more than 160 12/20/17 21:45 01/19/18 21:44 Dextrose (Dextrose 50%) STAT PRN IV Hypoglycemia 12/20/17 21:45 01/19/18 21:44 Dextrose (Dextrose 50%) STAT PRN IV Hypoglycemia 12/20/17 21:45 01/19/18 21:44 Heparin Sodium (Porcine) (Heparin 5000 units/ml) 5,000 units EVERY 12 HOURS SUBQ 12/21/17 09:00 01/20/18 08:59 12/21/17 21:50 Insulin Aspart (NovoLOG) BEFORE MEALS AND HS SUBQ 12/21/17 06:30 01/20/18 06:29 12/22/17 11:45 Insulin Detemir (Levemir) 10 units EVERY 12 HOURS SUBQ 12/22/17 21:00 01/21/18 20:59 Levofloxacin 100 ml @ 100 mls/hr Q24H IVPB 12/20/17 22:00 12/27/17 21:59 12/21/17 22:47 Lorazepam (Ativan 2mg/ml 1ml) 0.5 mg Q4H PRN IV For Anxiety 12/20/17 21:45 12/27/17 21:44 12/22/17 04:31 Methylprednisolone Sodium Succinate (Solu-MEDROL) 60 mg EVERY 6 HOURS IV 12/21/17 00:00 01/20/18 00:00 12/22/17 12:21 Morphine Sulfate (Morphine Sulfate) 2 mg EVERY 4 HOURS PRN IVP severe pain 7-10 12/20/17 21:45 12/27/17 21:44 Nitroglycerin (Ntg) 0.4 mg Q5M X 3 DOSES PRN SL Prn Chest Pain 12/20/17 21:45 01/19/18 21:44 Ondansetron HCl (Zofran) 4 mg Q6H PRN IVP Nausea & Vomiting 12/20/17 21:45 01/19/18 21:44 Promethazine HCl/ Codeine (Phenergan with Codeine) 5 ml EVERY 6 HOURS PRN ORAL cough 12/20/17 21:45 01/19/18 21:44 Risperidone (RisperDAL) 1 mg BID ORAL 12/21/17 13:15 01/20/18 13:14 12/22/17 08:08 Temazepam (Restoril) 15 mg HSPRN PRN ORAL Insomnia 12/20/17 21:45 12/27/17 21:44 Vitamin A/Vitamin D (A & D Oint) 1 applic EVERY 12 HOURS TOPIC 12/21/17 23:00 01/20/18 22:59 12/22/17 08:13 Assessment/Plan Assessment/Plan Abx: Levaquin 12/20- Assessment: Acute hypoxic resp failure 2ry to COPD exacerbation- no PNA on CXR, r/o Flu- off bipap now -CXR: No acute disease Afebrile, no leukocytosis Recent acute hypoxic failure and PNA 11/2015 -sp cx 12/04: E.coli (davila S), P. mirabilis (davila S) hx of trach s/p removal COPD Hep C Dm2 HTN [facility] resident Plan: -Continue Levaquin #3/5 for COPD exacerbation -monitor Qtc -12/10 SP Cefepime #7 -12/06 SP Vanco #3 -check influenza sc -f/u cx -Monitor CBC/BMP, temperatures -aspiration precautions Thank you for this consultation. Will continue to follow along with you. Discussed with AJ. Caterina Elizondo M.D. Dec 22, 2017 15:53
[2017-12-22] MEDS ORDERED: Sodium Polystyrene Sulfonate 15gm Powder ORAL SCH (17:30)
[2017-12-22] MEDS: Dyna-Hex 2% Top Sol 2oz TOPIC SCH (19:45)
[2017-12-22] MEDS: Levemir Flexpen SUBQ SCH (20:53)
[2017-12-23] VITALS (24 sets, daily range): BP systolic 108–140; BP diastolic 52–83
[2017-12-23] MEDS: LORazepam Inj 2mg/ml 1ml IV PRN (04:53)
[2017-12-23 05:28] LABS: HEMATOCRIT 37.6 % (37.0-47.0); HEMOGLOBIN 11.1 G/DL (12.0-16.0); MEAN CORPUSCULAR VOLUME 87 FL (80-99); PLATELET COUNT 125 K/UL (150-450); RED CELL DISTRIBUTION WIDTH 14.2 % (11.6-14.8); WHITE BLOOD COUNT 4.4 K/UL (4.8-10.8)
[2017-12-23] MEDS: Solu-MEDROL 125mg Inj IV SCH ×4 (05:47→23:59)
[2017-12-23 05:57] LABS: ALANINE AMINOTRANSFERASE 29 U/L (12-78); ALBUMIN 3.1 G/DL (3.4-5.0); ALBUMIN/GLOBULIN RATIO 0.8 (1.0-2.7); ALKALINE PHOSPHATASE 46 U/L (46-116); ANION GAP 2 mmol/L (5-15); ASPARTATE AMINO TRANSFERASE 18 U/L (15-37); BILIRUBIN,TOTAL 0.3 MG/DL (0.2-1.0); BLOOD UREA NITROGEN 34 mg/dL (7-18); CARBON DIOXIDE 42 MMOL/L (21-32); CHLORIDE 99 MMOL/L (98-107); CREATININE 1.2 MG/DL (0.55-1.30); PHOSPHORUS 3.6 MG/DL (2.5-4.9); POTASSIUM 3.7 MMOL/L (3.5-5.1); SODIUM 143 MMOL/L (136-145)
[2017-12-23] MEDS: NovoLOG Insulin Flexpen SUBQ SCH ×4 (06:09→21:18)
--- NOTE | 2017-12-23 09:00 | Pulmonolgy Critical Care Note ---
Critical Care - Asmt/Plan Problems: (1) Acute and chronic respiratory failure (2) COPD (chronic obstructive pulmonary disease) (3) Hepatitis C Respiratory: monitor respiratory rate, adjust FIO2, CXR Cardiac: continue to monitor HR/BP Renal: F/U I&O Infectious Disease: check cultures Gastrointestinal: continue feedings/current rate, hold feedings Endocrine: monitor blood sugar, check TSH, continue sliding scale insulin Hematologic: monitor H/H, transfuse if hgb<8.5 Neurologic: PRN Morphine, keep patient comfortable Affect: PRN ativan Prophylaxis: Heparin Notes Reviewed: cancer program consultant, renal Discussed with: nurses, consultants, immigration case managerconstruction site manager - Objective Last 24 Hour Vital Signs Date Time Temp Pulse Resp B/P (MAP) Pulse Ox O2 Delivery O2 Flow Rate FiO2 12/23/17 07:10 Nasal Cannula 2.0 12/23/17 07:09 99 Nasal Cannula 2.0 28 12/23/17 07:08 133 20 Nasal Cannula 2.0 28 12/23/17 07:00 124 33 127/76 98 Nasal Cannula 2.0 12/23/17 06:00 124 32 129/83 99 Nasal Cannula 2.0 12/23/17 05:00 115 28 122/72 100 Nasal Cannula 2.0 12/23/17 04:00 97.9 108 31 119/75 100 Nasal Cannula 2.0 97.9 12/23/17 03:24 121 12/23/17 03:00 118 35 133/81 93 Nasal Cannula 2.0 12/23/17 02:00 122 33 137/78 94 Nasal Cannula 2.0 12/23/17 01:31 99 12/23/17 01:00 118 32 116/80 94 Nasal Cannula 2.0 12/23/17 00:00 98.9 129 29 117/80 97 Nasal Cannula 2.0 98.9 12/22/17 23:30 97 12/22/17 23:20 118 12/22/17 23:00 122 38 124/73 98 Nasal Cannula 2.0 12/22/17 22:00 121 36 118/70 96 Nasal Cannula 2.0 12/22/17 21:10 95 12/22/17 21:00 118 36 122/79 96 Nasal Cannula 2.0 12/22/17 20:00 98.7 127 35 122/69 95 Nasal Cannula 2.0 98.7 12/22/17 19:30 95 Nasal Cannula 2.0 12/22/17 19:30 Nasal Cannula 2.0 12/22/17 19:20 136 12/22/17 19:00 129 16 132/72 95 Nasal Cannula 2.0 12/22/17 18:00 127 16 124/68 97 Nasal Cannula 2.0 12/22/17 17:00 126 25 124/68 93 Nasal Cannula 2.0 12/22/17 16:52 97 12/22/17 16:00 133 12/22/17 16:00 98.2 135 35 118/56 85 Nasal Cannula 2.0 98.2 12/22/17 14:47 99 12/22/17 14:00 137 25 125/69 93 Nasal Cannula 2.0 12/22/17 13:00 133 27 128/72 96 Nasal Cannula 2.0 12/22/17 12:56 99 12/22/17 12:36 98.6 134 28 120/73 84 Nasal Cannula 2.0 98.6 12/22/17 12:00 98.6 134 28 120/73 84 Nasal Cannula 2.0 98.6 12/22/17 12:00 129 12/22/17 11:00 122 27 136/62 98 Nasal Cannula 2.0 12/22/17 10:51 98 12/22/17 10:00 123 33 139/60 98 Nasal Cannula 2.0 12/22/17 09:00 123 33 139/60 98 Nasal Cannula 2.0 Status: awake Condition: improving Neck: full ROM Lungs: clear Heart: HR/BP stable Abdomen: soft, non-tender Extremities: no C/C/E, edema Decubiti: location Micro: Microbiology Date/Time Source Procedure Growth Status 12/20/17 21:20 Blood Blood Culture - Preliminary NO GROWTH AFTER 48 HOURS Resulted 12/20/17 21:05 Blood Blood Culture - Preliminary NO GROWTH AFTER 48 HOURS Resulted 12/22/17 17:00 Nasopharynx Influenza Types A,B Antigen (CHARLES) - Final Complete 12/20/17 23:19 Rectum VRE Culture - Final Enterococcus Faecium - Vre Complete Accucheck: 376 Critical Care - Subjective ROS Limited/Unobtainable: No ICU Day: 3 Condition: critical FI02: 28 Sputum Amount: None I&O: Intake and Output 12/22/17 12/23/17 19:00 07:00 Intake Total 750 ml 540 ml Output Total 3 ml 3 ml Balance 747 ml 537 ml Intake Oral 550 ml 440 ml Free Water 200 ml IV Total 100 ml Output Urine Total 3 ml 3 ml # Voids 1 CXR: clear Labs: Laboratory Tests Test 12/23/17 03:30 White Blood Count 4.4 K/UL (4.8-10.8) L Red Blood Count 4.30 M/UL (4.20-5.40) Hemoglobin 11.1 G/DL (12.0-16.0) L Hematocrit 37.6 % (37.0-47.0) Mean Corpuscular Volume 87 FL (80-99) Mean Corpuscular Hemoglobin 25.7 PG (27.0-31.0) L Mean Corpuscular Hemoglobin Concent 29.4 G/DL (32.0-36.0) L Red Cell Distribution Width 14.2 % (11.6-14.8) Platelet Count 125 K/UL (150-450) L Mean Platelet Volume 7.3 FL (6.5-10.1) Neutrophils (%) (Auto) % (45.0-75.0) Lymphocytes (%) (Auto) % (20.0-45.0) Monocytes (%) (Auto) % (1.0-10.0) Eosinophils (%) (Auto) % (0.0-3.0) Basophils (%) (Auto) % (0.0-2.0) Differential Total Cells Counted 100 Neutrophils % (Manual) 78 % (45-75) H Lymphocytes % (Manual) 21 % (20-45) Monocytes % (Manual) 1 % (1-10) Eosinophils % (Manual) 0 % (0-3) Basophils % (Manual) 0 % (0-2) Band Neutrophils 0 % (0-8) Platelet Estimate Decreased L Platelet Morphology Normal Hypochromasia 1+ Anisocytosis 1+ Sodium Level 143 MMOL/L (136-145) Potassium Level 3.7 MMOL/L (3.5-5.1) Chloride Level 99 MMOL/L (98-107) Carbon Dioxide Level 42 MMOL/L (21-32) *H Anion Gap 2 mmol/L (5-15) L Blood Urea Nitrogen 34 mg/dL (7-18) H Creatinine 1.2 MG/DL (0.55-1.30) Estimat Glomerular Filtration Rate 54.2 mL/min (>60) Glucose Level 391 MG/DL (74-106) H Calcium Level 9.0 MG/DL (8.5-10.1) Phosphorus Level 3.6 MG/DL (2.5-4.9) Magnesium Level 1.7 MG/DL (1.8-2.4) L Total Bilirubin 0.3 MG/DL (0.2-1.0) Aspartate Amino Transf (AST/SGOT) 18 U/L (15-37) Alanine Aminotransferase (ALT/SGPT) 29 U/L (12-78) Alkaline Phosphatase 46 U/L (46-116) Total Protein 7.0 G/DL (6.4-8.2) Albumin 3.1 G/DL (3.4-5.0) L Globulin 3.9 g/dL Albumin/Globulin Ratio 0.8 (1.0-2.7) L Leni Watts MD Dec 23, 2017 09:00
[2017-12-23] MEDS: Vitamin A&D Oint 2oz Tube TOPIC SCH ×2 (09:46→21:18)
[2017-12-23] MEDS: Levemir Flexpen SUBQ SCH ×2 (09:47→21:17)
[2017-12-23] MEDS: Heparin 5000 units/ml inj SUBQ SCH ×2 (09:52→21:39)
[2017-12-23] MEDS: Docusate 100mg cap ORAL SCH ×3 (09:59→18:22)
[2017-12-23] MEDS ORDERED: Fleet's Mineral Oil Enema RECTAL SCH (10:00)
[2017-12-23] MEDS ORDERED: Sennosides 8.6mg ORAL SCH (10:00)
--- NOTE | 2017-12-23 11:57 | Diagnostic Imaging Report ---
Indication: Dyspnea Comparison: 12/22/2018 A single view chest radiograph was obtained. Findings: No infiltrate identified. No overt CHF identified with some prominence of pulmonary vascularity. Heart is borderline in size. Bones are osteopenic. IMPRESSION: No change from the prior exam
[2017-12-23] MEDS: Sennosides 8.6mg ORAL SCH (15:00)
--- NOTE | 2017-12-23 17:04 | Cardiology Report ---
APPROVED REPORT EXAM: Two-dimensional and M-mode echocardiogram with Doppler and color Doppler. INDICATION LVF M-Mode DIMENSIONS IVSd0.6 (0.7-1.1cm)Left Atrium (MM)4.4 (1.6-4.0cm) LVDd3.7 (3.5-5.6cm)Aortic Root2.6 (2.0-3.7cm) PWd0.9 (0.7-1.1cm)Aortic Cusp Exc.1.7 (1.5-2.0cm) LVDs1.7 (2.5-4.0cm) PWs0.9 cm Normal left ventricular chamber size, systolic function and wall motion. Abnormal wall motion basal and mid posterior. Left ventricular ejection fraction estimated to be 55-60%. No evidence of left ventricular hypertrophy. No evidence of pericardial or pleural effusion. All other cardiac chamber sizes are within normal limits. Focal aortic valve sclerosis with adequate cusp excursion. Thickened mitral valve leaflets with normal excursion. Mild mitral annulus and aortic root calcification. Pulmonic valve not well visualized. Normal tricuspid valve structure. IVC is normal in size and collapsible with respiration. A color flow and spectral Doppler study was performed and revealed: No aortic regurgitation. No mitral regurgitation. Mitral diastolic velocities suggest reduced left ventricular relaxation c/w diastolic dysfunction grade 1. Mild tricuspid regurgitation. Tricuspid systolic velocities suggests peak right ventricular systolic pressure of 46mmHg Consistent with moderate pulmonary hypertension.
[2017-12-23] MEDS: Dyna-Hex 2% Top Sol 2oz TOPIC SCH (19:38)
[2017-12-23] MEDS ORDERED: Miralax 17gm pkt ORAL SCH (21:00)
[2017-12-24] VITALS (15 sets, daily range): BP systolic 99–145; BP diastolic 60–94
[2017-12-24] MEDS: Solu-MEDROL 125mg Inj IV SCH ×3 (05:45→17:54)
[2017-12-24 05:49] LABS: EOSINOPHILS % (AUTO) 0.1 % (0.0-3.0); HEMATOCRIT 36.7 % (37.0-47.0); HEMOGLOBIN 10.8 G/DL (12.0-16.0); LYMPHOCYTES % (AUTO) 18.4 % (20.0-45.0); MEAN CORPUSCULAR VOLUME 88 FL (80-99); MONOCYTES % (AUTO) 2.9 % (1.0-10.0); NEUTROPHILS % (AUTO) 77.7 % (45.0-75.0); PLATELET COUNT 122 K/UL (150-450); RED BLOOD COUNT 4.15 M/UL (4.20-5.40); RED CELL DISTRIBUTION WIDTH 14.5 % (11.6-14.8); WHITE BLOOD COUNT 4.1 K/UL (4.8-10.8)
[2017-12-24] MEDS: NovoLOG Insulin Flexpen SUBQ SCH ×5 (06:29→21:00)
[2017-12-24 06:32] LABS: ALANINE AMINOTRANSFERASE 55 U/L (12-78); ALBUMIN 2.8 G/DL (3.4-5.0); ALBUMIN/GLOBULIN RATIO 0.7 (1.0-2.7); ALKALINE PHOSPHATASE 45 U/L (46-116); ASPARTATE AMINO TRANSFERASE 48 U/L (15-37); BILIRUBIN,TOTAL 0.3 MG/DL (0.2-1.0); BLOOD UREA NITROGEN 35 mg/dL (7-18); CALCIUM 8.9 MG/DL (8.5-10.1); CHLORIDE 103 MMOL/L (98-107); CREATININE 1.2 MG/DL (0.55-1.30); POTASSIUM 3.1 MMOL/L (3.5-5.1); SODIUM 148 MMOL/L (136-145)
[2017-12-24 06:38] LABS: CARBON DIOXIDE > 45 MMOL/L (21-32)
[2017-12-24] MEDS: Docusate 100mg cap ORAL SCH ×3 (07:59→17:53)
[2017-12-24] MEDS: Sennosides 8.6mg ORAL SCH (08:00)
[2017-12-24] MEDS: Levemir Flexpen SUBQ SCH ×2 (08:02→21:00)
[2017-12-24] MEDS: Heparin 5000 units/ml inj SUBQ SCH ×2 (08:11→21:00)
[2017-12-24] MEDS: Vitamin A&D Oint 2oz Tube TOPIC SCH ×2 (08:12→21:00)
--- NOTE | 2017-12-24 09:34 | Diagnostic Imaging Report ---
Indication: Abnormal breath sounds Comparison: 12/23/2017 A single view chest radiograph was obtained. Findings: No definite infiltrate or pulmonary vascular congestion identified. The heart is enlarged. The aorta is mildly enlarged consistent with atherosclerotic vascular disease. The bones are osteopenic. Impression: No acute disease
[2017-12-24] MEDS ORDERED: Potassium Chloride 40 MEQ in Sodium Chloride 500ML 550 ML IVPB ONE (10:00)
--- NOTE | 2017-12-24 10:25 | Pulmonolgy Critical Care Note ---
Critical Care - Asmt/Plan Problems: (1) Acute and chronic respiratory failure (2) COPD (chronic obstructive pulmonary disease) (3) Hepatitis C Respiratory: monitor respiratory rate, adjust FIO2, CXR Cardiac: continue to monitor HR/BP Renal: F/U I&O, keep IV fluid Infectious Disease: check cultures Gastrointestinal: continue feedings/current rate Endocrine: monitor blood sugar, check TSH, continue sliding scale insulin Hematologic: monitor H/H, transfuse if hgb<8.5 Neurologic: PRN Morphine, keep patient comfortable Affect: PRN ativan Prophylaxis: Protonix Disposition: keep in ICU Notes Reviewed: environmental remediation consultant, renal Discussed with: nurses, consultants, insurance case managernewspaper manager - Objective Last 24 Hour Vital Signs Date Time Temp Pulse Resp B/P (MAP) Pulse Ox O2 Delivery O2 Flow Rate FiO2 12/24/17 08:00 98 30 131/75 90 Nasal Cannula 0.5 12/24/17 07:59 108 144/82 12/24/17 07:00 108 30 144/82 87 Nasal Cannula 1.0 12/24/17 06:00 106 30 126/69 87 Nasal Cannula 1.0 12/24/17 05:00 113 32 145/94 89 Nasal Cannula 1.0 12/24/17 04:00 97.9 100 32 125/69 96 Nasal Cannula 1.0 97.9 12/24/17 04:00 88 12/24/17 03:00 82 23 104/61 98 Nasal Cannula 1.0 12/24/17 02:00 89 23 116/68 98 Nasal Cannula 1.0 12/24/17 01:00 90 26 105/62 97 Nasal Cannula 1.0 12/24/17 00:00 104 12/24/17 00:00 98.0 99 26 108/61 97 Nasal Cannula 1.0 98.0 12/23/17 23:00 104 28 108/61 97 Nasal Cannula 1.0 12/23/17 22:00 104 27 109/63 99 Nasal Cannula 1.0 12/23/17 21:00 110 29 116/76 95 Nasal Cannula 1.0 12/23/17 20:34 Nasal Cannula 1.0 24 12/23/17 20:33 122 28 Nasal Cannula 1.0 28 12/23/17 20:33 82 Nasal Cannula 1.0 24 12/23/17 20:00 121 12/23/17 20:00 98.3 124 33 113/75 98 Nasal Cannula 1.0 98.3 12/23/17 19:00 98.3 128 28 129/64 82 Nasal Cannula 1.0 98.3 12/23/17 18:00 128 28 124/71 82 Nasal Cannula 1.0 12/23/17 17:00 121 28 133/74 82 Nasal Cannula 1.0 12/23/17 16:00 128 12/23/17 16:00 137 28 137/66 87 Nasal Cannula 1.0 12/23/17 15:00 113 28 110/52 93 Nasal Cannula 1.0 12/23/17 14:00 121 28 116/74 90 Nasal Cannula 1.0 12/23/17 13:00 132 28 122/74 92 Nasal Cannula 1.0 12/23/17 12:00 130 12/23/17 12:00 98.5 131 29 125/65 89 Nasal Cannula 1.0 98.5 12/23/17 11:00 131 29 125/62 89 Nasal Cannula 1.0 Status: awake Condition: critical HEENT: atraumatic Lungs: clear Heart: HR/BP stable, HR/BP unstable Abdomen: soft, non-tender, active bowel sounds Extremities: no C/C/E, edema Decubiti: location, stage Micro: Microbiology Date/Time Source Procedure Growth Status 12/22/17 17:00 Nasopharynx Influenza Types A,B Antigen (CHARLES) - Final Complete Accucheck: 229 Critical Care - Subjective ROS Limited/Unobtainable: No Condition: improving EKG Rhythm: Sinus Rhythm FI02: 24 Sputum Amount: None I&O: Intake and Output 12/23/17 12/24/17 19:00 07:00 Intake Total 500 ml 200 ml Output Total 2 ml Balance 498 ml 200 ml Intake Oral 500 ml 100 ml IV Total 100 ml Output Urine Total 2 ml # Voids 4 4 # Bowel Movements 2 CXR: no change Labs: Laboratory Tests Test 12/24/17 04:00 12/24/17 07:00 White Blood Count 4.1 K/UL (4.8-10.8) L Red Blood Count 4.15 M/UL (4.20-5.40) L Hemoglobin 10.8 G/DL (12.0-16.0) L Hematocrit 36.7 % (37.0-47.0) L Mean Corpuscular Volume 88 FL (80-99) Mean Corpuscular Hemoglobin 25.9 PG (27.0-31.0) L Mean Corpuscular Hemoglobin Concent 29.4 G/DL (32.0-36.0) L Red Cell Distribution Width 14.5 % (11.6-14.8) Platelet Count 122 K/UL (150-450) L Mean Platelet Volume 8.4 FL (6.5-10.1) Neutrophils (%) (Auto) 77.7 % (45.0-75.0) H Lymphocytes (%) (Auto) 18.4 % (20.0-45.0) L Monocytes (%) (Auto) 2.9 % (1.0-10.0) Eosinophils (%) (Auto) 0.1 % (0.0-3.0) Basophils (%) (Auto) 1.0 % (0.0-2.0) Sodium Level 148 MMOL/L (136-145) H Potassium Level 3.1 MMOL/L (3.5-5.1) L Chloride Level 103 MMOL/L (98-107) Carbon Dioxide Level > 45 MMOL/L (21-32) *H Blood Urea Nitrogen 35 mg/dL (7-18) H Creatinine 1.2 MG/DL (0.55-1.30) Estimat Glomerular Filtration Rate 54.2 mL/min (>60) Glucose Level 237 MG/DL (74-106) #H Calcium Level 8.9 MG/DL (8.5-10.1) Phosphorus Level 4.0 MG/DL (2.5-4.9) Magnesium Level 1.7 MG/DL (1.8-2.4) L Total Bilirubin 0.3 MG/DL (0.2-1.0) Aspartate Amino Transf (AST/SGOT) 48 U/L (15-37) H Alanine Aminotransferase (ALT/SGPT) 55 U/L (12-78) Alkaline Phosphatase 45 U/L (46-116) L Total Protein 6.7 G/DL (6.4-8.2) Albumin 2.8 G/DL (3.4-5.0) L Globulin 3.9 g/dL Albumin/Globulin Ratio 0.7 (1.0-2.7) L Arterial Blood pH 7.330 (7.350-7.450) Arterial Blood Partial Pressure CO2 80.6 mmHg (35.0-45.0) *H Arterial Blood Partial Pressure O2 48.6 mmHg (75.0-100.0) Arterial Blood HCO3 41.5 mmol/L (22.0-26.0) H Arterial Blood Oxygen Saturation 82.9 % (92.0-98.0) L Arterial Blood Base Excess 12.5 Julius Test Positive Leni Watts MD Dec 24, 2017 10:24
[2017-12-24] MEDS ORDERED: NovoLOG Insulin Flexpen SUBQ SCH (11:50)
[2017-12-24] MEDS ORDERED: Nitroglycerin Subl 0.4mg tab SL PRN (13:45)
[2017-12-24] MEDS ORDERED: Promethazine/Codeine 5ml UD ORAL PRN (14:30)
[2017-12-24] MEDS ORDERED: LORazepam Inj 2mg/ml 1ml IV PRN (15:00)
[2017-12-24] MEDS ORDERED: Morphine Sulfate 4mg/ml Inj IVP PRN (15:00)
[2017-12-24] MEDS ORDERED: Albuterol/Ipratropium 3ml neb HHN PRN (15:00)
--- NOTE | 2017-12-24 16:29 | Infectious Diseases Prog Note ---
Assessment/Plan Assessment/Plan Assessment: Acute hypoxic resp failure COPD exacerbation- no PNA on CXR, -CXR: No acute disease Afebrile, no leukocytosis Recent acute hypoxic failure and PNA 11/2015 -sp cx 12/04: E.coli (davila S), P. mirabilis (davila S) Influenza sc : Neg hx of trach s/p removal COPD Hep C Dm2 HTN NH resident Plan: \ - DC Levaquin # 5 /5 for COPD exacerbation and monitor pt off of AB Rx -12/10 SP Cefepime #7 -12/06 SP Vanco #3 -f/u cx ( Bl ) -Monitor CBC/BMP, temperatures -aspiration precautions Subjective Allergies: Coded Allergies: Shrimp (Unverified Allergy, Unknown, 12/04/17) Subjective Afebrile Objective Vital Signs Last 24 Hour Vital Signs Date Time Temp Pulse Resp B/P (MAP) Pulse Ox O2 Delivery O2 Flow Rate FiO2 12/24/17 12:00 98.2 111 29 120/65 90 Nasal Cannula 0.5 98.2 12/24/17 12:00 109 12/24/17 11:00 119 29 121/68 90 Nasal Cannula 0.5 12/24/17 10:00 109 29 99/60 90 Nasal Cannula 0.5 12/24/17 09:00 98.1 111 29 107/65 86 Nasal Cannula 0.5 98.1 12/24/17 08:00 98 30 131/75 90 Nasal Cannula 0.5 12/24/17 08:00 96 12/24/17 07:59 108 144/82 12/24/17 07:00 86 Room Air 21 12/24/17 07:00 108 30 144/82 87 Nasal Cannula 1.0 12/24/17 07:00 116 24 Room Air 21 12/24/17 07:00 Room Air 21 12/24/17 06:00 106 30 126/69 87 Nasal Cannula 1.0 12/24/17 05:00 113 32 145/94 89 Nasal Cannula 1.0 12/24/17 04:00 97.9 100 32 125/69 96 Nasal Cannula 1.0 97.9 12/24/17 04:00 88 12/24/17 03:00 82 23 104/61 98 Nasal Cannula 1.0 12/24/17 02:00 89 23 116/68 98 Nasal Cannula 1.0 12/24/17 01:00 90 26 105/62 97 Nasal Cannula 1.0 12/24/17 00:00 104 12/24/17 00:00 98.0 99 26 108/61 97 Nasal Cannula 1.0 98.0 12/23/17 23:00 104 28 108/61 97 Nasal Cannula 1.0 12/23/17 22:00 104 27 109/63 99 Nasal Cannula 1.0 12/23/17 21:00 110 29 116/76 95 Nasal Cannula 1.0 12/23/17 20:34 Nasal Cannula 1.0 24 12/23/17 20:33 122 28 Nasal Cannula 1.0 28 12/23/17 20:33 82 Nasal Cannula 1.0 24 12/23/17 20:00 121 12/23/17 20:00 98.3 124 33 113/75 98 Nasal Cannula 1.0 98.3 12/23/17 19:00 98.3 128 28 129/64 82 Nasal Cannula 1.0 98.3 12/23/17 18:00 128 28 124/71 82 Nasal Cannula 1.0 12/23/17 17:00 121 28 133/74 82 Nasal Cannula 1.0 Height (Feet): 5 Height (Inches): 4.00 Weight (Pounds): 134 HEENT: mucous membranes moist Respiratory/Chest: no respiratory distress Cardiovascular: regularly irregular Abdomen: non distended Microbiology Date/Time Source Procedure Growth Status 12/22/17 17:00 Nasopharynx Influenza Types A,B Antigen (CHARLES) - Final Complete Laboratory Tests Test 12/24/17 04:00 12/24/17 07:00 White Blood Count 4.1 K/UL (4.8-10.8) L Red Blood Count 4.15 M/UL (4.20-5.40) L Hemoglobin 10.8 G/DL (12.0-16.0) L Hematocrit 36.7 % (37.0-47.0) L Mean Corpuscular Volume 88 FL (80-99) Mean Corpuscular Hemoglobin 25.9 PG (27.0-31.0) L Mean Corpuscular Hemoglobin Concent 29.4 G/DL (32.0-36.0) L Red Cell Distribution Width 14.5 % (11.6-14.8) Platelet Count 122 K/UL (150-450) L Mean Platelet Volume 8.4 FL (6.5-10.1) Neutrophils (%) (Auto) 77.7 % (45.0-75.0) H Lymphocytes (%) (Auto) 18.4 % (20.0-45.0) L Monocytes (%) (Auto) 2.9 % (1.0-10.0) Eosinophils (%) (Auto) 0.1 % (0.0-3.0) Basophils (%) (Auto) 1.0 % (0.0-2.0) Sodium Level 148 MMOL/L (136-145) H Potassium Level 3.1 MMOL/L (3.5-5.1) L Chloride Level 103 MMOL/L (98-107) Carbon Dioxide Level > 45 MMOL/L (21-32) *H Blood Urea Nitrogen 35 mg/dL (7-18) H Creatinine 1.2 MG/DL (0.55-1.30) Estimat Glomerular Filtration Rate 54.2 mL/min (>60) Glucose Level 237 MG/DL (74-106) #H Calcium Level 8.9 MG/DL (8.5-10.1) Phosphorus Level 4.0 MG/DL (2.5-4.9) Magnesium Level 1.7 MG/DL (1.8-2.4) L Total Bilirubin 0.3 MG/DL (0.2-1.0) Aspartate Amino Transf (AST/SGOT) 48 U/L (15-37) H Alanine Aminotransferase (ALT/SGPT) 55 U/L (12-78) Alkaline Phosphatase 45 U/L (46-116) L Total Protein 6.7 G/DL (6.4-8.2) Albumin 2.8 G/DL (3.4-5.0) L Globulin 3.9 g/dL Albumin/Globulin Ratio 0.7 (1.0-2.7) L Arterial Blood pH 7.330 (7.350-7.450) Arterial Blood Partial Pressure CO2 80.6 mmHg (35.0-45.0) *H Arterial Blood Partial Pressure O2 48.6 mmHg (75.0-100.0) Arterial Blood HCO3 41.5 mmol/L (22.0-26.0) H Arterial Blood Oxygen Saturation 82.9 % (92.0-98.0) L Arterial Blood Base Excess 12.5 Julius Test Positive Current Medications Medications (Trade) Dose Ordered Sig/Hansel Route PRN Reason Start Time Stop Time Status Last Admin Dose Admin Acetaminophen (Tylenol) 650 mg Q4H PRN ORAL T>100.5 12/24/17 14:30 01/19/18 14:29 Albuterol/ Ipratropium (Albuterol/ Ipratropium) 3 ml Q4H PRN HHN dyspnea 12/24/17 15:00 12/29/17 14:59 Amlodipine Besylate (Norvasc) 5 mg DAILY ORAL 12/25/17 09:00 01/20/18 08:59 Chlorhexidine Gluconate (Jazzmine-Hex 2%) 1 applic DAILY@2000 TOPIC 12/24/17 20:00 01/20/18 19:59 Clonidine HCl (Catapres Tab) 0.1 mg Q4H PRN ORAL sbp more than 160mmHg 12/24/17 15:00 01/23/18 14:59 Dextrose (Dextrose 50%) 25 ml STAT PRN IV Hypoglycemia 12/24/17 15:00 01/22/18 14:59 Dextrose (Dextrose 50%) 50 ml STAT PRN IV Hypoglycemia 12/24/17 15:00 01/22/18 14:59 Docusate Sodium (Colace) 100 mg THREE TIMES A DAY ORAL 12/24/17 18:00 01/22/18 09:59 Heparin Sodium (Porcine) (Heparin 5000 units/ml) 5,000 units EVERY 12 HOURS SUBQ 12/24/17 21:00 01/20/18 08:59 Insulin Aspart (NovoLOG) BEFORE MEALS AND HS SUBQ 12/24/17 16:30 01/22/18 20:59 Insulin Aspart (NovoLOG) 8 units NOVOTIAC SUBQ 12/24/17 16:50 01/23/18 11:49 Insulin Detemir (Levemir) 15 units EVERY 12 HOURS SUBQ 12/24/17 21:00 01/23/18 20:59 Levofloxacin 100 ml @ 100 mls/hr Q24H IVPB 12/24/17 22:00 12/27/17 21:59 Lorazepam (Ativan 2mg/ml 1ml) 0.5 mg Q4H PRN IV For Anxiety 12/24/17 15:00 12/27/17 14:59 Methylprednisolone Sodium Succinate (Solu-MEDROL) 60 mg EVERY 6 HOURS IV 12/24/17 18:00 01/20/18 00:00 Mineral Oil (Fleet's Mineral Oil Enema) 133 ml EVERY OTHER DAY RECTAL 12/25/17 09:00 01/22/18 09:59 Morphine Sulfate (Morphine Sulfate) 2 mg Q4H PRN IVP Severe Pain (Pain Scale 7-10) 12/24/17 15:00 12/31/17 14:59 Nitroglycerin (Ntg) 0.4 mg Q5M X 3 DOSES PRN SL Prn Chest Pain 12/24/17 13:45 01/19/18 21:44 Ondansetron HCl (Zofran) 4 mg Q6H PRN IVP Nausea & Vomiting 12/24/17 15:45 01/19/18 21:44 Polyethylene Glycol (Miralax) 17 gm BEDTIME ORAL 12/24/17 21:00 01/22/18 20:59 Promethazine HCl/ Codeine (Phenergan with Codeine) 5 ml Q6H PRN ORAL cough 12/24/17 14:30 01/23/18 14:29 Risperidone (RisperDAL) 1 mg BID ORAL 12/24/17 18:00 01/20/18 13:14 Sennosides (Senokot) 1 tab DAILY ORAL 12/25/17 09:00 01/22/18 14:59 Temazepam (Restoril) 15 mg HSPRN PRN ORAL Insomnia 12/24/17 21:00 12/27/17 20:59 Vitamin A/Vitamin D (A & D Oint) 1 applic EVERY 12 HOURS TOPIC 12/24/17 21:00 01/20/18 22:59 Steve Griffin MD Dec 24, 2017 16:29
[2017-12-24] MEDS ORDERED: NS 275ml ONE ×2 (16:49→17:43)
[2017-12-24] MEDS ORDERED: Tubing IV Secondary IV ONE (16:49)
--- NOTE | 2017-12-24 19:15 | General Progress Note ---
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 Subjective Date patient seen: Dec 24, 2017 Neurologic/Psychiatric: Reports: anxiety, depressed, emotional problems Allergies: Coded Allergies: Shrimp (Unverified Allergy, Unknown, 12/04/17) Objective Last 24 Hour Vital Signs Date Time Temp Pulse Resp B/P (MAP) Pulse Ox O2 Delivery O2 Flow Rate FiO2 12/24/17 16:00 97.9 114 28 134/71 90 Nasal Cannula 0.5 97.9 12/24/17 16:00 113 12/24/17 12:00 98.2 111 29 120/65 90 Nasal Cannula 0.5 98.2 12/24/17 12:00 109 12/24/17 11:00 119 29 121/68 90 Nasal Cannula 0.5 12/24/17 10:00 109 29 99/60 90 Nasal Cannula 0.5 12/24/17 09:00 98.1 111 29 107/65 86 Nasal Cannula 0.5 98.1 12/24/17 08:00 98 30 131/75 90 Nasal Cannula 0.5 12/24/17 08:00 96 12/24/17 07:59 108 144/82 12/24/17 07:00 86 Room Air 21 12/24/17 07:00 108 30 144/82 87 Nasal Cannula 1.0 12/24/17 07:00 116 24 Room Air 21 12/24/17 07:00 Room Air 21 12/24/17 06:00 106 30 126/69 87 Nasal Cannula 1.0 12/24/17 05:00 113 32 145/94 89 Nasal Cannula 1.0 12/24/17 04:00 97.9 100 32 125/69 96 Nasal Cannula 1.0 97.9 12/24/17 04:00 88 12/24/17 03:00 82 23 104/61 98 Nasal Cannula 1.0 12/24/17 02:00 89 23 116/68 98 Nasal Cannula 1.0 12/24/17 01:00 90 26 105/62 97 Nasal Cannula 1.0 12/24/17 00:00 104 12/24/17 00:00 98.0 99 26 108/61 97 Nasal Cannula 1.0 98.0 12/23/17 23:00 104 28 108/61 97 Nasal Cannula 1.0 12/23/17 22:00 104 27 109/63 99 Nasal Cannula 1.0 12/23/17 21:00 110 29 116/76 95 Nasal Cannula 1.0 12/23/17 20:34 Nasal Cannula 1.0 24 12/23/17 20:33 122 28 Nasal Cannula 1.0 28 12/23/17 20:33 82 Nasal Cannula 1.0 24 12/23/17 20:00 121 12/23/17 20:00 98.3 124 33 113/75 98 Nasal Cannula 1.0 98.3 Intake and Output 12/23/17 12/24/17 19:00 07:00 Intake Total 500 ml 200 ml Output Total 2 ml Balance 498 ml 200 ml Intake Oral 500 ml 100 ml IV Total 100 ml Output Urine Total 2 ml # Voids 4 4 # Bowel Movements 2 Laboratory Tests 12/24/17 04:00: White Blood Count 4.1L, Red Blood Count 4.15L, Hemoglobin 10.8L, Hematocrit 36.7L, Mean Corpuscular Volume 88, Mean Corpuscular Hemoglobin 25.9L, Mean Corpuscular Hemoglobin Concent 29.4L, Red Cell Distribution Width 14.5, Platelet Count 122L, Mean Platelet Volume 8.4, Neutrophils (%) (Auto) 77.7H, Lymphocytes (%) (Auto) 18.4L, Monocytes (%) (Auto) 2.9, Eosinophils (%) (Auto) 0.1, Basophils (%) (Auto) 1.0, Sodium Level 148H, Potassium Level 3.1L, Chloride Level 103, Carbon Dioxide Level > 45*H, Blood Urea Nitrogen 35H, Creatinine 1.2, Estimat Glomerular Filtration Rate 54.2, Glucose Level 237#H, Calcium Level 8.9, Phosphorus Level 4.0, Magnesium Level 1.7L, Total Bilirubin 0.3, Aspartate Amino Transf (AST/SGOT) 48H, Alanine Aminotransferase (ALT/SGPT) 55, Alkaline Phosphatase 45L, Total Protein 6.7, Albumin 2.8L, Globulin 3.9, Albumin/Globulin Ratio 0.7L 12/24/17 07:00: Arterial Blood pH 7.330L, Arterial Blood Partial Pressure CO2 80.6*H, Arterial Blood Partial Pressure O2 48.6*L, Arterial Blood HCO3 41.5H, Arterial Blood Oxygen Saturation 82.9L, Arterial Blood Base Excess 12.5, Julius Test Positive Height (Feet): 5 Height (Inches): 4.00 Weight (Pounds): 134 General Appearance: no apparent distress, alert Neurologic: oriented x 3, responsive, normal mood/affect Grisel Jay M.D. Dec 24, 2017 19:15
--- NOTE | 2017-12-24 19:21 | Psych Consult Progress Note ---
Psych Consult Progress Note Consult the pt was seen on 12/23/17 the pt is doing well not agitated encephalopathy psychosis due to [facility] [place] rispedal ativan Vital Signs Last 24 Hour Vital Signs Date Time Temp Pulse Resp B/P (MAP) Pulse Ox O2 Delivery O2 Flow Rate FiO2 12/24/17 16:00 97.9 114 28 134/71 90 Nasal Cannula 0.5 97.9 12/24/17 16:00 113 12/24/17 12:00 98.2 111 29 120/65 90 Nasal Cannula 0.5 98.2 12/24/17 12:00 109 12/24/17 11:00 119 29 121/68 90 Nasal Cannula 0.5 12/24/17 10:00 109 29 99/60 90 Nasal Cannula 0.5 12/24/17 09:00 98.1 111 29 107/65 86 Nasal Cannula 0.5 98.1 12/24/17 08:00 98 30 131/75 90 Nasal Cannula 0.5 12/24/17 08:00 96 12/24/17 07:59 108 144/82 12/24/17 07:00 86 Room Air 21 12/24/17 07:00 108 30 144/82 87 Nasal Cannula 1.0 12/24/17 07:00 116 24 Room Air 21 12/24/17 07:00 Room Air 21 12/24/17 06:00 106 30 126/69 87 Nasal Cannula 1.0 12/24/17 05:00 113 32 145/94 89 Nasal Cannula 1.0 12/24/17 04:00 97.9 100 32 125/69 96 Nasal Cannula 1.0 97.9 12/24/17 04:00 88 12/24/17 03:00 82 23 104/61 98 Nasal Cannula 1.0 12/24/17 02:00 89 23 116/68 98 Nasal Cannula 1.0 12/24/17 01:00 90 26 105/62 97 Nasal Cannula 1.0 12/24/17 00:00 104 12/24/17 00:00 98.0 99 26 108/61 97 Nasal Cannula 1.0 98.0 12/23/17 23:00 104 28 108/61 97 Nasal Cannula 1.0 12/23/17 22:00 104 27 109/63 99 Nasal Cannula 1.0 12/23/17 21:00 110 29 116/76 95 Nasal Cannula 1.0 12/23/17 20:34 Nasal Cannula 1.0 24 12/23/17 20:33 122 28 Nasal Cannula 1.0 28 12/23/17 20:33 82 Nasal Cannula 1.0 24 12/23/17 20:00 121 12/23/17 20:00 98.3 124 33 113/75 98 Nasal Cannula 1.0 98.3 Labs Laboratory Tests Test 12/24/17 04:00 12/24/17 07:00 White Blood Count 4.1 K/UL (4.8-10.8) L Red Blood Count 4.15 M/UL (4.20-5.40) L Hemoglobin 10.8 G/DL (12.0-16.0) L Hematocrit 36.7 % (37.0-47.0) L Mean Corpuscular Volume 88 FL (80-99) Mean Corpuscular Hemoglobin 25.9 PG (27.0-31.0) L Mean Corpuscular Hemoglobin Concent 29.4 G/DL (32.0-36.0) L Red Cell Distribution Width 14.5 % (11.6-14.8) Platelet Count 122 K/UL (150-450) L Mean Platelet Volume 8.4 FL (6.5-10.1) Neutrophils (%) (Auto) 77.7 % (45.0-75.0) H Lymphocytes (%) (Auto) 18.4 % (20.0-45.0) L Monocytes (%) (Auto) 2.9 % (1.0-10.0) Eosinophils (%) (Auto) 0.1 % (0.0-3.0) Basophils (%) (Auto) 1.0 % (0.0-2.0) Sodium Level 148 MMOL/L (136-145) H Potassium Level 3.1 MMOL/L (3.5-5.1) L Chloride Level 103 MMOL/L (98-107) Carbon Dioxide Level > 45 MMOL/L (21-32) *H Blood Urea Nitrogen 35 mg/dL (7-18) H Creatinine 1.2 MG/DL (0.55-1.30) Estimat Glomerular Filtration Rate 54.2 mL/min (>60) Glucose Level 237 MG/DL (74-106) #H Calcium Level 8.9 MG/DL (8.5-10.1) Phosphorus Level 4.0 MG/DL (2.5-4.9) Magnesium Level 1.7 MG/DL (1.8-2.4) L Total Bilirubin 0.3 MG/DL (0.2-1.0) Aspartate Amino Transf (AST/SGOT) 48 U/L (15-37) H Alanine Aminotransferase (ALT/SGPT) 55 U/L (12-78) Alkaline Phosphatase 45 U/L (46-116) L Total Protein 6.7 G/DL (6.4-8.2) Albumin 2.8 G/DL (3.4-5.0) L Globulin 3.9 g/dL Albumin/Globulin Ratio 0.7 (1.0-2.7) L Arterial Blood pH 7.330 (7.350-7.450) Arterial Blood Partial Pressure CO2 80.6 mmHg (35.0-45.0) *H Arterial Blood Partial Pressure O2 48.6 mmHg (75.0-100.0) Arterial Blood HCO3 41.5 mmol/L (22.0-26.0) H Arterial Blood Oxygen Saturation 82.9 % (92.0-98.0) L Arterial Blood Base Excess 12.5 Julius Test Positive Medications Current Medications Medications (Trade) Dose Ordered Sig/Hansel Route PRN Reason Start Time Stop Time Status Last Admin Dose Admin Acetaminophen (Tylenol) 650 mg Q4H PRN ORAL T>100.5 12/24/17 14:30 01/19/18 14:29 Albuterol/ Ipratropium (Albuterol/ Ipratropium) 3 ml Q4H PRN HHN dyspnea 12/24/17 15:00 12/29/17 14:59 Amlodipine Besylate (Norvasc) 5 mg DAILY ORAL 12/25/17 09:00 01/20/18 08:59 Chlorhexidine Gluconate (Jazzmine-Hex 2%) 1 applic DAILY@2000 TOPIC 12/24/17 20:00 01/20/18 19:59 Clonidine HCl (Catapres Tab) 0.1 mg Q4H PRN ORAL sbp more than 160mmHg 12/24/17 15:00 01/23/18 14:59 Dextrose (Dextrose 50%) 25 ml STAT PRN IV Hypoglycemia 12/24/17 15:00 01/22/18 14:59 Dextrose (Dextrose 50%) 50 ml STAT PRN IV Hypoglycemia 12/24/17 15:00 01/22/18 14:59 Docusate Sodium (Colace) 100 mg THREE TIMES A DAY ORAL 12/24/17 18:00 01/22/18 09:59 12/24/17 17:53 Heparin Sodium (Porcine) (Heparin 5000 units/ml) 5,000 units EVERY 12 HOURS SUBQ 12/24/17 21:00 01/20/18 08:59 Insulin Aspart (NovoLOG) BEFORE MEALS AND HS SUBQ 12/24/17 16:30 01/22/18 20:59 12/24/17 17:45 Insulin Aspart (NovoLOG) 8 units NOVOTIAC SUBQ 12/24/17 16:50 01/23/18 11:49 12/24/17 17:48 Insulin Detemir (Levemir) 15 units EVERY 12 HOURS SUBQ 12/24/17 21:00 01/23/18 20:59 Levofloxacin 100 ml @ 100 mls/hr Q24H IVPB 12/24/17 22:00 12/24/17 23:33 Lorazepam (Ativan 2mg/ml 1ml) 0.5 mg Q4H PRN IV For Anxiety 12/24/17 15:00 12/27/17 14:59 Methylprednisolone Sodium Succinate (Solu-MEDROL) 60 mg EVERY 6 HOURS IV 12/24/17 18:00 01/20/18 00:00 12/24/17 17:54 Mineral Oil (Fleet's Mineral Oil Enema) 133 ml EVERY OTHER DAY RECTAL 12/25/17 09:00 01/22/18 09:59 Morphine Sulfate (Morphine Sulfate) 2 mg Q4H PRN IVP Severe Pain (Pain Scale 7-10) 12/24/17 15:00 12/31/17 14:59 Nitroglycerin (Ntg) 0.4 mg Q5M X 3 DOSES PRN SL Prn Chest Pain 12/24/17 13:45 01/19/18 21:44 Ondansetron HCl (Zofran) 4 mg Q6H PRN IVP Nausea & Vomiting 12/24/17 15:45 01/19/18 21:44 Polyethylene Glycol (Miralax) 17 gm BEDTIME ORAL 12/24/17 21:00 5/8/18 20:59 Promethazine HCl/ Codeine (Phenergan with Codeine) 5 ml Q6H PRN ORAL cough 12/24/17 14:30 01/23/18 14:29 Risperidone (RisperDAL) 1 mg BID ORAL 12/24/17 18:00 01/20/18 13:14 12/24/17 17:53 Sennosides (Senokot) 1 tab DAILY ORAL 12/25/17 09:00 01/22/18 14:59 Temazepam (Restoril) 15 mg HSPRN PRN ORAL Insomnia 12/24/17 21:00 12/27/17 20:59 Vitamin A/Vitamin D (A & D Oint) 1 applic EVERY 12 HOURS TOPIC 12/24/17 21:00 01/20/18 22:59 Grisel Jay M.D. Dec 24, 2017 19:21
[2017-12-24] MEDS ORDERED: Levemir Flexpen SUBQ SCH (21:00)
[2017-12-24] MEDS: Miralax 17gm pkt ORAL SCH (21:00)
[2017-12-24] MEDS: Dyna-Hex 2% Top Sol 2oz TOPIC SCH (21:41)
[2017-12-25] VITALS: BP 114/68
[2017-12-25] MEDS: Solu-MEDROL 125mg Inj IV SCH ×5 (01:18→23:32)
[2017-12-25 04:00] VITALS: BP 125/77
[2017-12-25 05:30] LABS: HEMATOCRIT 36.3 % (37.0-47.0); HEMOGLOBIN 11.1 G/DL (12.0-16.0); MEAN CORPUSCULAR VOLUME 87 FL (80-99); PLATELET COUNT 114 K/UL (150-450); RED BLOOD COUNT 4.19 M/UL (4.20-5.40); RED CELL DISTRIBUTION WIDTH 14.2 % (11.6-14.8); WHITE BLOOD COUNT 4.4 K/UL (4.8-10.8)
[2017-12-25 06:10] LABS: ALANINE AMINOTRANSFERASE 82 U/L (12-78); ALBUMIN 2.7 G/DL (3.4-5.0); ALBUMIN/GLOBULIN RATIO 0.8 (1.0-2.7); ALKALINE PHOSPHATASE 42 U/L (46-116); ASPARTATE AMINO TRANSFERASE 56 U/L (15-37); BILIRUBIN,TOTAL 0.4 MG/DL (0.2-1.0); BLOOD UREA NITROGEN 31 mg/dL (7-18); CALCIUM 8.8 MG/DL (8.5-10.1); CHLORIDE 101 MMOL/L (98-107); CREATININE 1.1 MG/DL (0.55-1.30); PHOSPHORUS 3.8 MG/DL (2.5-4.9); POTASSIUM 4.2 MMOL/L (3.5-5.1); SODIUM 142 MMOL/L (136-145)
[2017-12-25 06:21] LABS: CARBON DIOXIDE 43 MMOL/L (21-32)
[2017-12-25] MEDS: NovoLOG Insulin Flexpen SUBQ SCH ×7 (06:43→20:27)
--- NOTE | 2017-12-25 06:54 | General Progress Note ---
Assessment/Plan Problem List: (1) Diabetes mellitus out of control ICD Codes: E11.65 - Type 2 diabetes mellitus with hyperglycemia SNOMED: 77256681, 092637491 (2) COPD (chronic obstructive pulmonary disease) ICD Codes: J44.9 - Chronic obstructive pulmonary disease, unspecified SNOMED: 05627548 (3) Acute and chronic respiratory failure ICD Codes: J96.20 - Acute and chronic respiratory failure, unspecified whether with hypoxia or hypercapnia SNOMED: 43105653 Assessment/Plan continue Levemir 15 units bid continue Novolog 8 units ac tid continue NISS Subjective Allergies: Coded Allergies: Shrimp (Unverified Allergy, Unknown, 12/04/17) Subjective events noted glucose values improved still on IVSM she is resting Objective Last 24 Hour Vital Signs Date Time Temp Pulse Resp B/P (MAP) Pulse Ox O2 Delivery O2 Flow Rate FiO2 12/25/17 04:00 84 12/25/17 04:00 97.0 94 20 125/77 99 Nasal Cannula 0.5 97.0 12/25/17 00:00 97.3 101 21 114/68 94 Nasal Cannula 0.5 97.3 12/25/17 00:00 89 12/24/17 20:00 116 12/24/17 20:00 97.0 114 22 143/83 93 Nasal Cannula 0.5 97.0 12/24/17 19:37 93 Nasal Cannula 2.0 28 12/24/17 19:37 Room Air 2.0 28 12/24/17 19:37 118 20 Nasal Cannula 2.0 28 12/24/17 16:00 97.9 114 28 134/71 90 Nasal Cannula 0.5 97.9 12/24/17 16:00 113 12/24/17 12:00 98.2 111 29 120/65 90 Nasal Cannula 0.5 98.2 12/24/17 12:00 109 12/24/17 11:00 119 29 121/68 90 Nasal Cannula 0.5 12/24/17 10:00 109 29 99/60 90 Nasal Cannula 0.5 12/24/17 09:00 98.1 111 29 107/65 86 Nasal Cannula 0.5 98.1 12/24/17 08:00 98 30 131/75 90 Nasal Cannula 0.5 12/24/17 08:00 96 12/24/17 07:59 108 144/82 12/24/17 07:00 86 Room Air 21 12/24/17 07:00 108 30 144/82 87 Nasal Cannula 1.0 12/24/17 07:00 116 24 Room Air 21 12/24/17 07:00 Room Air 21 Intake and Output 12/24/17 12/25/17 19:00 07:00 Intake Total 116 ml 116 ml Balance 116 ml 116 ml Intake Oral 116 ml 116 ml # Voids 3 1 Laboratory Tests 12/24/17 07:00: Arterial Blood pH 7.330L, Arterial Blood Partial Pressure CO2 80.6*H, Arterial Blood Partial Pressure O2 48.6*L, Arterial Blood HCO3 41.5H, Arterial Blood Oxygen Saturation 82.9L, Arterial Blood Base Excess 12.5, Julius Test Positive 12/25/17 05:15: White Blood Count 4.4L, Red Blood Count 4.19L, Hemoglobin 11.1L, Hematocrit 36.3L, Mean Corpuscular Volume 87, Mean Corpuscular Hemoglobin 26.5L, Mean Corpuscular Hemoglobin Concent 30.6L, Red Cell Distribution Width 14.2, Platelet Count 114L, Mean Platelet Volume 7.6, Neutrophils (%) (Auto) , Lymphocytes (%) (Auto) , Monocytes (%) (Auto) , Eosinophils (%) (Auto) , Basophils (%) (Auto) , Neutrophils % (Manual) [Pending], Lymphocytes % (Manual) [Pending], Platelet Estimate [Pending], Platelet Morphology [Pending], Sodium Level 142, Potassium Level 4.2, Chloride Level 101, Carbon Dioxide Level 43*H, Blood Urea Nitrogen 31H, Creatinine 1.1, Estimat Glomerular Filtration Rate 59.9 , Glucose Level 235H, Calcium Level 8.8, Phosphorus Level 3.8, Magnesium Level 2.1, Total Bilirubin 0.4, Aspartate Amino Transf (AST/SGOT) 56H, Alanine Aminotransferase (ALT/SGPT) 82H, Alkaline Phosphatase 42L, Total Protein 6.3L, Albumin 2.7L, Globulin 3.6, Albumin/Globulin Ratio 0.8L Height (Feet): 5 Height (Inches): 4.00 Weight (Pounds): 163 General Appearance: no apparent distress Neck: normal alignment Cardiovascular: normal rate Respiratory/Chest: expiratory wheezing Abdomen: normal bowel sounds Objective Current Medications Medications (Trade) Dose Ordered Sig/Hansel Route PRN Reason Start Time Stop Time Status Last Admin Dose Admin Acetaminophen (Tylenol) 650 mg Q4H PRN ORAL T>100.5 12/24/17 14:30 01/19/18 14:29 Albuterol/ Ipratropium (Albuterol/ Ipratropium) 3 ml Q4H PRN HHN dyspnea 12/24/17 15:00 12/29/17 14:59 Amlodipine Besylate (Norvasc) 5 mg DAILY ORAL 12/25/17 09:00 01/20/18 08:59 Chlorhexidine Gluconate (Jazzmine-Hex 2%) 1 applic DAILY@1999 TOPIC 12/24/17 20:00 01/20/18 19:59 12/24/17 21:41 Clonidine HCl (Catapres Tab) 0.1 mg Q4H PRN ORAL sbp more than 160mmHg 12/24/17 15:00 01/23/18 14:59 Dextrose (Dextrose 50%) 25 ml STAT PRN IV Hypoglycemia 12/24/17 15:00 01/22/18 14:59 Dextrose (Dextrose 50%) 50 ml STAT PRN IV Hypoglycemia 12/24/17 15:00 01/22/18 14:59 Docusate Sodium (Colace) 100 mg THREE TIMES A DAY ORAL 12/24/17 18:00 01/22/18 09:59 12/24/17 17:53 Heparin Sodium (Porcine) (Heparin 5000 units/ml) 5,000 units EVERY 12 HOURS SUBQ 12/24/17 21:00 01/20/18 08:59 Insulin Aspart (NovoLOG) BEFORE MEALS AND HS SUBQ 12/24/17 16:30 01/22/18 20:59 12/25/17 06:43 Insulin Aspart (NovoLOG) 8 units NOVOTIAC SUBQ 12/24/17 16:50 01/23/18 11:49 12/25/17 06:44 Insulin Detemir (Levemir) 15 units EVERY 12 HOURS SUBQ 12/24/17 21:00 01/23/18 20:59 12/24/17 21:00 Lorazepam (Ativan 2mg/ml 1ml) 0.5 mg Q4H PRN IV For Anxiety 12/24/17 15:00 12/27/17 14:59 Methylprednisolone Sodium Succinate (Solu-MEDROL) 60 mg EVERY 6 HOURS IV 12/24/17 18:00 01/20/18 00:00 12/25/17 06:48 Mineral Oil (Fleet's Mineral Oil Enema) 133 ml EVERY OTHER DAY RECTAL 12/25/17 09:00 01/22/18 09:59 Morphine Sulfate (Morphine Sulfate) 2 mg Q4H PRN IVP Severe Pain (Pain Scale 7-10) 12/24/17 15:00 12/31/17 14:59 12/25/17 01:56 Nitroglycerin (Ntg) 0.4 mg Q5M X 3 DOSES PRN SL Prn Chest Pain 12/24/17 13:45 01/19/18 21:44 Ondansetron HCl (Zofran) 4 mg Q6H PRN IVP Nausea & Vomiting 12/24/17 15:45 01/19/18 21:44 Polyethylene Glycol (Miralax) 17 gm BEDTIME ORAL 12/24/17 21:00 01/22/18 20:59 Promethazine HCl/ Codeine (Phenergan with Codeine) 5 ml Q6H PRN ORAL cough 12/24/17 14:30 01/23/18 14:29 Risperidone (RisperDAL) 1 mg BID ORAL 12/24/17 18:00 01/20/18 13:14 12/24/17 17:53 Sennosides (Senokot) 1 tab DAILY ORAL 12/25/17 09:00 01/22/18 14:59 Temazepam (Restoril) 15 mg HSPRN PRN ORAL Insomnia 12/24/17 21:00 12/27/17 20:59 Vitamin A/Vitamin D (A & D Oint) 1 applic EVERY 12 HOURS TOPIC 12/24/17 21:00 01/20/18 22:59 12/24/17 21:00 Item Value Date Time Bedside Blood Glucose 199 mg/dl H 12/25/17 0644 Bedside Blood Glucose 87 mg/dl 12/24/17 2139 Bedside Blood Glucose 212 mg/dl H 12/24/17 1748 Bedside Blood Glucose 334 mg/dl H 12/24/17 1311 Bedside Blood Glucose 229 mg/dl H 12/24/17 0802 Bedside Blood Glucose 273 mg/dl H 12/24/17 0630 FEMI MCKEON Dec 25, 2017 06:54
[2017-12-25 08:00] VITALS: BP 106/68
[2017-12-25] MEDS: Docusate 100mg cap ORAL SCH ×3 (08:16→17:47)
[2017-12-25] MEDS: Heparin 5000 units/ml inj SUBQ SCH ×2 (08:16→20:24)
[2017-12-25] MEDS: Sennosides 8.6mg ORAL SCH (08:22)
[2017-12-25] MEDS: Vitamin A&D Oint 2oz Tube TOPIC SCH ×2 (08:28→20:21)
[2017-12-25] MEDS: Levemir Flexpen SUBQ SCH ×2 (08:28→20:26)
[2017-12-25] MEDS ORDERED: Fleet's Mineral Oil Enema RECTAL SCH (09:00)
[2017-12-25] MEDS ORDERED: Potassium Chloride 40 MEQ in Sodium Chloride 500ML 550 ML IVPB ONE (10:00)
[2017-12-25 12:00] VITALS: BP 123/64
--- NOTE | 2017-12-25 13:12 | Pulmonology Progress Note ---
Assessment/Plan Problems: (1) Acute and chronic respiratory failure (2) COPD (chronic obstructive pulmonary disease) (3) Hepatitis C Assessment/Plan improving remains tachycardic, respiratory treatment check cultures cardiology to see for tachycardia and PVCs keep in teli Subjective Interval Events: improving, no new complains Allergies: Coded Allergies: Shrimp (Unverified Allergy, Unknown, 12/04/17) Objective Last 24 Hour Vital Signs Date Time Temp Pulse Resp B/P (MAP) Pulse Ox O2 Delivery O2 Flow Rate FiO2 12/25/17 08:15 105 106/60 12/25/17 08:00 97.8 107 21 106/68 93 Nasal Cannula 0.5 97.8 12/25/17 07:18 100 Nasal Cannula 2.0 28 12/25/17 07:18 Room Air 2.0 28 12/25/17 07:18 85 20 Nasal Cannula 2.0 28 12/25/17 04:00 84 12/25/17 04:00 97.0 94 20 125/77 99 Nasal Cannula 0.5 97.0 12/25/17 00:00 97.3 101 21 114/68 94 Nasal Cannula 0.5 97.3 12/25/17 00:00 89 12/24/17 20:00 116 12/24/17 20:00 97.0 114 22 143/83 93 Nasal Cannula 0.5 97.0 12/24/17 19:37 93 Nasal Cannula 2.0 28 12/24/17 19:37 Room Air 2.0 28 12/24/17 19:37 118 20 Nasal Cannula 2.0 28 12/24/17 16:00 97.9 114 28 134/71 90 Nasal Cannula 0.5 97.9 12/24/17 16:00 113 Intake and Output 12/24/17 12/25/17 19:00 07:00 Intake Total 116 ml 116 ml Balance 116 ml 116 ml Intake Oral 116 ml 116 ml # Voids 3 1 General Appearance: WD/WN HEENT: normocephalic Respiratory/Chest: chest wall non-tender, normal breath sounds Breasts: no masses Cardiovascular: normal peripheral pulses Abdomen: normal bowel sounds, soft, non tender Genitourinary: normal external genitalia Extremities: no clubbing Skin: no rash 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/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 Lymphatic: no neck adenopathy Microbiology Date/Time Source Procedure Growth Status 12/22/17 17:00 Nasopharynx Influenza Types A,B Antigen (CHARLES) - Final Complete Laboratory Tests 12/25/17 05:15: White Blood Count 4.4L, Red Blood Count 4.19L, Hemoglobin 11.1L, Hematocrit 36.3L, Mean Corpuscular Volume 87, Mean Corpuscular Hemoglobin 26.5L, Mean Corpuscular Hemoglobin Concent 30.6L, Red Cell Distribution Width 14.2, Platelet Count 114L, Mean Platelet Volume 7.6, Neutrophils (%) (Auto) , Lymphocytes (%) (Auto) , Monocytes (%) (Auto) , Eosinophils (%) (Auto) , Basophils (%) (Auto) , Differential Total Cells Counted 100, Neutrophils % ( Manual) 79H, Lymphocytes % (Manual) 19L, Monocytes % (Manual) 2, Eosinophils % ( Manual) 0, Basophils % (Manual) 0, Band Neutrophils 0, Platelet Estimate DecreasedL, Platelet Morphology Normal, Hypochromasia 1+, Stomatocytes 1+, Sodium Level 142, Potassium Level 4.2, Chloride Level 101, Carbon Dioxide Level 43*H, Blood Urea Nitrogen 31H, Creatinine 1.1, Estimat Glomerular Filtration Rate 59.9, Glucose Level 235H, Calcium Level 8.8, Phosphorus Level 3.8, Magnesium Level 2.1, Total Bilirubin 0.4, Aspartate Amino Transf (AST/SGOT) 56H , Alanine Aminotransferase (ALT/SGPT) 82H, Alkaline Phosphatase 42L, Total Protein 6.3L, Albumin 2.7L, Globulin 3.6, Albumin/Globulin Ratio 0.8L Current Medications Medications (Trade) Dose Ordered Sig/Hansel Route PRN Reason Start Time Stop Time Status Last Admin Dose Admin Acetaminophen (Tylenol) 650 mg Q4H PRN ORAL T>100.5 12/24/17 14:30 01/19/18 14:29 Albuterol/ Ipratropium (Albuterol/ Ipratropium) 3 ml Q4H PRN HHN dyspnea 12/24/17 15:00 12/29/17 14:59 Amlodipine Besylate (Norvasc) 5 mg DAILY ORAL 12/25/17 09:00 01/20/18 08:59 12/25/17 08:15 Chlorhexidine Gluconate (Jazzmine-Hex 2%) 1 applic DAILY@1999 TOPIC 12/24/17 20:00 01/20/18 19:59 12/24/17 21:41 Clonidine HCl (Catapres Tab) 0.1 mg Q4H PRN ORAL sbp more than 160mmHg 12/24/17 15:00 01/23/18 14:59 Dextrose (Dextrose 50%) 25 ml STAT PRN IV Hypoglycemia 12/24/17 15:00 01/22/18 14:59 Dextrose (Dextrose 50%) 50 ml STAT PRN IV Hypoglycemia 12/24/17 15:00 01/22/18 14:59 Docusate Sodium (Colace) 100 mg THREE TIMES A DAY ORAL 12/24/17 18:00 01/22/18 09:59 12/25/17 12:41 Heparin Sodium (Porcine) (Heparin 5000 units/ml) 5,000 units EVERY 12 HOURS SUBQ 12/24/17 21:00 01/20/18 08:59 Insulin Aspart (NovoLOG) BEFORE MEALS AND HS SUBQ 12/24/17 16:30 01/22/18 20:59 12/25/17 12:37 Insulin Aspart (NovoLOG) 8 units NOVOTIAC SUBQ 12/24/17 16:50 01/23/18 11:49 12/25/17 12:38 Insulin Detemir (Levemir) 15 units EVERY 12 HOURS SUBQ 12/24/17 21:00 01/23/18 20:59 12/25/17 08:28 Lorazepam (Ativan 2mg/ml 1ml) 0.5 mg Q4H PRN IV For Anxiety 12/24/17 15:00 12/27/17 14:59 Methylprednisolone Sodium Succinate (Solu-MEDROL) 60 mg EVERY 6 HOURS IV 12/24/17 18:00 01/20/18 00:00 12/25/17 12:41 Mineral Oil (Fleet's Mineral Oil Enema) 133 ml EVERY OTHER DAY RECTAL 12/25/17 09:00 01/22/18 09:59 Morphine Sulfate (Morphine Sulfate) 2 mg Q4H PRN IVP Severe Pain (Pain Scale 7-10) 12/24/17 15:00 12/31/17 14:59 12/25/17 01:56 Nitroglycerin (Ntg) 0.4 mg Q5M X 3 DOSES PRN SL Prn Chest Pain 12/24/17 13:45 01/19/18 21:44 Ondansetron HCl (Zofran) 4 mg Q6H PRN IVP Nausea & Vomiting 12/24/17 15:45 01/19/18 21:44 Polyethylene Glycol (Miralax) 17 gm BEDTIME ORAL 12/24/17 21:00 01/22/18 20:59 Promethazine HCl/ Codeine (Phenergan with Codeine) 5 ml Q6H PRN ORAL cough 12/24/17 14:30 01/23/18 14:29 Risperidone (RisperDAL) 1 mg BID ORAL 12/24/17 18:00 01/20/18 13:14 12/25/17 08:15 Sennosides (Senokot) 1 tab DAILY ORAL 12/25/17 09:00 01/22/18 14:59 12/25/17 08:22 Temazepam (Restoril) 15 mg HSPRN PRN ORAL Insomnia 12/24/17 21:00 12/27/17 20:59 Vitamin A/Vitamin D (A & D Oint) 1 applic EVERY 12 HOURS TOPIC 12/24/17 21:00 01/20/18 22:59 12/25/17 08:28 Leni Watts MD Dec 25, 2017 13:12
--- NOTE | 2017-12-25 13:38 | Cardiology Progress Note ---
Assessment/Plan Assessment/Plan sinus tachy p wave morphology not suggestive orf mat contineu tretment for underluying lung issue repaet trop and ekg [id number] Objective Last 24 Hour Vital Signs Date Time Temp Pulse Resp B/P (MAP) Pulse Ox O2 Delivery O2 Flow Rate FiO2 12/25/17 12:00 97.8 107 24 123/64 90 Nasal Cannula 0.5 97.8 12/25/17 08:15 105 106/60 12/25/17 08:00 97.8 107 21 106/68 93 Nasal Cannula 0.5 97.8 12/25/17 07:18 100 Nasal Cannula 2.0 28 12/25/17 07:18 Room Air 2.0 28 12/25/17 07:18 85 20 Nasal Cannula 2.0 28 12/25/17 04:00 84 12/25/17 04:00 97.0 94 20 125/77 99 Nasal Cannula 0.5 97.0 12/25/17 00:00 97.3 101 21 114/68 94 Nasal Cannula 0.5 97.3 12/25/17 00:00 89 12/24/17 20:00 116 12/24/17 20:00 97.0 114 22 143/83 93 Nasal Cannula 0.5 97.0 12/24/17 19:37 93 Nasal Cannula 2.0 28 12/24/17 19:37 Room Air 2.0 28 12/24/17 19:37 118 20 Nasal Cannula 2.0 28 12/24/17 16:00 97.9 114 28 134/71 90 Nasal Cannula 0.5 97.9 12/24/17 16:00 113 Intake and Output 12/24/17 12/25/17 19:00 07:00 Intake Total 116 ml 116 ml Balance 116 ml 116 ml Intake Oral 116 ml 116 ml # Voids 3 1 Laboratory Tests Test 12/25/17 05:15 White Blood Count 4.4 K/UL (4.8-10.8) L Red Blood Count 4.19 M/UL (4.20-5.40) L Hemoglobin 11.1 G/DL (12.0-16.0) L Hematocrit 36.3 % (37.0-47.0) L Mean Corpuscular Volume 87 FL (80-99) Mean Corpuscular Hemoglobin 26.5 PG (27.0-31.0) L Mean Corpuscular Hemoglobin Concent 30.6 G/DL (32.0-36.0) L Red Cell Distribution Width 14.2 % (11.6-14.8) Platelet Count 114 K/UL (150-450) L Mean Platelet Volume 7.6 FL (6.5-10.1) Neutrophils (%) (Auto) % (45.0-75.0) Lymphocytes (%) (Auto) % (20.0-45.0) Monocytes (%) (Auto) % (1.0-10.0) Eosinophils (%) (Auto) % (0.0-3.0) Basophils (%) (Auto) % (0.0-2.0) Differential Total Cells Counted 100 Neutrophils % (Manual) 79 % (45-75) H Lymphocytes % (Manual) 19 % (20-45) L Monocytes % (Manual) 2 % (1-10) Eosinophils % (Manual) 0 % (0-3) Basophils % (Manual) 0 % (0-2) Band Neutrophils 0 % (0-8) Platelet Estimate Decreased L Platelet Morphology Normal Hypochromasia 1+ Stomatocytes 1+ Sodium Level 142 MMOL/L (136-145) Potassium Level 4.2 MMOL/L (3.5-5.1) Chloride Level 101 MMOL/L (98-107) Carbon Dioxide Level 43 MMOL/L (21-32) *H Blood Urea Nitrogen 31 mg/dL (7-18) H Creatinine 1.1 MG/DL (0.55-1.30) Estimat Glomerular Filtration Rate 59.9 mL/min (>60) Glucose Level 235 MG/DL (74-106) H Calcium Level 8.8 MG/DL (8.5-10.1) Phosphorus Level 3.8 MG/DL (2.5-4.9) Magnesium Level 2.1 MG/DL (1.8-2.4) Total Bilirubin 0.4 MG/DL (0.2-1.0) Aspartate Amino Transf (AST/SGOT) 56 U/L (15-37) H Alanine Aminotransferase (ALT/SGPT) 82 U/L (12-78) H Alkaline Phosphatase 42 U/L (46-116) L Total Protein 6.3 G/DL (6.4-8.2) L Albumin 2.7 G/DL (3.4-5.0) L Globulin 3.6 g/dL Albumin/Globulin Ratio 0.8 (1.0-2.7) L Microbiology Date/Time Source Procedure Growth Status 12/22/17 17:00 Nasopharynx Influenza Types A,B Antigen (CHARLES) - Final Complete STEVO WAGNER Dec 25, 2017 13:38
--- NOTE | 2017-12-25 14:10 | Infectious Diseases Prog Note ---
Assessment/Plan Assessment/Plan Assessment: Acute hypoxic resp failure improved COPD exacerbation- -CXR: No acute disease Afebrile, no leukocytosis Recent acute hypoxic failure and PNA 11/2015 -sp cx 12/04: E.coli (davila S), P. mirabilis (davila S) Influenza sc : Neg hx of trach s/p removal COPD Hep C Dm2 HTN [facility] resident Plan: - Monitor pt off of AB Rx 12/24 SP Levaquin # 5 /5 for COPD exacerbation and monitor pt off of AB Rx -12/10 SP Cefepime #7 -12/06 SP Vanco #3 -f/u cx ( Bl ) -Monitor CBC/BMP, temperatures -aspiration precautions Subjective Allergies: Coded Allergies: Shrimp (Unverified Allergy, Unknown, 12/04/17) Subjective Afebrile Objective Vital Signs Last 24 Hour Vital Signs Date Time Temp Pulse Resp B/P (MAP) Pulse Ox O2 Delivery O2 Flow Rate FiO2 12/25/17 12:00 97.8 107 24 123/64 90 Nasal Cannula 0.5 97.8 12/25/17 08:15 105 106/60 12/25/17 08:00 97.8 107 21 106/68 93 Nasal Cannula 0.5 97.8 12/25/17 07:18 100 Nasal Cannula 2.0 28 12/25/17 07:18 Room Air 2.0 28 12/25/17 07:18 85 20 Nasal Cannula 2.0 28 12/25/17 04:00 84 12/25/17 04:00 97.0 94 20 125/77 99 Nasal Cannula 0.5 97.0 12/25/17 00:00 97.3 101 21 114/68 94 Nasal Cannula 0.5 97.3 12/25/17 00:00 89 12/24/17 20:00 116 12/24/17 20:00 97.0 114 22 143/83 93 Nasal Cannula 0.5 97.0 12/24/17 19:37 93 Nasal Cannula 2.0 28 12/24/17 19:37 Room Air 2.0 28 12/24/17 19:37 118 20 Nasal Cannula 2.0 28 12/24/17 16:00 97.9 114 28 134/71 90 Nasal Cannula 0.5 97.9 12/24/17 16:00 113 Height (Feet): 5 Height (Inches): 4.00 Weight (Pounds): 163 HEENT: mucous membranes moist Respiratory/Chest: no accessory muscle use Cardiovascular: regular rhythm, no JVD Microbiology Date/Time Source Procedure Growth Status 12/22/17 17:00 Nasopharynx Influenza Types A,B Antigen (CHARLES) - Final Complete Laboratory Tests Test 12/25/17 05:15 White Blood Count 4.4 K/UL (4.8-10.8) L Red Blood Count 4.19 M/UL (4.20-5.40) L Hemoglobin 11.1 G/DL (12.0-16.0) L Hematocrit 36.3 % (37.0-47.0) L Mean Corpuscular Volume 87 FL (80-99) Mean Corpuscular Hemoglobin 26.5 PG (27.0-31.0) L Mean Corpuscular Hemoglobin Concent 30.6 G/DL (32.0-36.0) L Red Cell Distribution Width 14.2 % (11.6-14.8) Platelet Count 114 K/UL (150-450) L Mean Platelet Volume 7.6 FL (6.5-10.1) Neutrophils (%) (Auto) % (45.0-75.0) Lymphocytes (%) (Auto) % (20.0-45.0) Monocytes (%) (Auto) % (1.0-10.0) Eosinophils (%) (Auto) % (0.0-3.0) Basophils (%) (Auto) % (0.0-2.0) Differential Total Cells Counted 100 Neutrophils % (Manual) 79 % (45-75) H Lymphocytes % (Manual) 19 % (20-45) L Monocytes % (Manual) 2 % (1-10) Eosinophils % (Manual) 0 % (0-3) Basophils % (Manual) 0 % (0-2) Band Neutrophils 0 % (0-8) Platelet Estimate Decreased L Platelet Morphology Normal Hypochromasia 1+ Stomatocytes 1+ Sodium Level 142 MMOL/L (136-145) Potassium Level 4.2 MMOL/L (3.5-5.1) Chloride Level 101 MMOL/L (98-107) Carbon Dioxide Level 43 MMOL/L (21-32) *H Blood Urea Nitrogen 31 mg/dL (7-18) H Creatinine 1.1 MG/DL (0.55-1.30) Estimat Glomerular Filtration Rate 59.9 mL/min (>60) Glucose Level 235 MG/DL (74-106) H Calcium Level 8.8 MG/DL (8.5-10.1) Phosphorus Level 3.8 MG/DL (2.5-4.9) Magnesium Level 2.1 MG/DL (1.8-2.4) Total Bilirubin 0.4 MG/DL (0.2-1.0) Aspartate Amino Transf (AST/SGOT) 56 U/L (15-37) H Alanine Aminotransferase (ALT/SGPT) 82 U/L (12-78) H Alkaline Phosphatase 42 U/L (46-116) L Total Protein 6.3 G/DL (6.4-8.2) L Albumin 2.7 G/DL (3.4-5.0) L Globulin 3.6 g/dL Albumin/Globulin Ratio 0.8 (1.0-2.7) L Current Medications Medications (Trade) Dose Ordered Sig/Hansel Route PRN Reason Start Time Stop Time Status Last Admin Dose Admin Acetaminophen (Tylenol) 650 mg Q4H PRN ORAL T>100.5 12/24/17 14:30 01/19/18 14:29 Albuterol/ Ipratropium (Albuterol/ Ipratropium) 1.5 ml Q4H PRN HHN dyspnea 12/25/17 15:00 12/30/17 14:59 Amlodipine Besylate (Norvasc) 5 mg DAILY ORAL 12/25/17 09:00 01/20/18 08:59 12/25/17 08:15 Chlorhexidine Gluconate (Jazzmine-Hex 2%) 1 applic DAILY@2000 TOPIC 12/24/17 20:00 01/20/18 19:59 12/24/17 21:41 Clonidine HCl (Catapres Tab) 0.1 mg Q4H PRN ORAL sbp more than 160mmHg 12/24/17 15:00 01/23/18 14:59 Dextrose (Dextrose 50%) 25 ml STAT PRN IV Hypoglycemia 12/24/17 15:00 01/22/18 14:59 Dextrose (Dextrose 50%) 50 ml STAT PRN IV Hypoglycemia 12/24/17 15:00 01/22/18 14:59 Docusate Sodium (Colace) 100 mg THREE TIMES A DAY ORAL 12/24/17 18:00 01/22/18 09:59 12/25/17 12:41 Heparin Sodium (Porcine) (Heparin 5000 units/ml) 5,000 units EVERY 12 HOURS SUBQ 12/24/17 21:00 01/20/18 08:59 Insulin Aspart (NovoLOG) BEFORE MEALS AND HS SUBQ 12/24/17 16:30 01/22/18 20:59 12/25/17 12:37 Insulin Aspart (NovoLOG) 8 units NOVOTIAC SUBQ 12/24/17 16:50 01/23/18 11:49 12/25/17 12:38 Insulin Detemir (Levemir) 15 units EVERY 12 HOURS SUBQ 12/24/17 21:00 01/23/18 20:59 12/25/17 08:28 Lorazepam (Ativan 2mg/ml 1ml) 0.5 mg Q4H PRN IV For Anxiety 12/24/17 15:00 12/27/17 14:59 Methylprednisolone Sodium Succinate (Solu-MEDROL) 60 mg EVERY 6 HOURS IV 12/24/17 18:00 01/20/18 00:00 12/25/17 12:41 Mineral Oil (Fleet's Mineral Oil Enema) 133 ml EVERY OTHER DAY RECTAL 12/25/17 09:00 01/22/18 09:59 Morphine Sulfate (Morphine Sulfate) 2 mg Q4H PRN IVP Severe Pain (Pain Scale 7-10) 12/24/17 15:00 12/31/17 14:59 12/25/17 01:56 Nitroglycerin (Ntg) 0.4 mg Q5M X 3 DOSES PRN SL Prn Chest Pain 12/24/17 13:45 01/19/18 21:44 Ondansetron HCl (Zofran) 4 mg Q6H PRN IVP Nausea & Vomiting 12/24/17 15:45 01/19/18 21:44 Polyethylene Glycol (Miralax) 17 gm BEDTIME ORAL 12/24/17 21:00 01/22/18 20:59 Promethazine HCl/ Codeine (Phenergan with Codeine) 5 ml Q6H PRN ORAL cough 12/24/17 14:30 01/23/18 14:29 Risperidone (RisperDAL) 1 mg BID ORAL 12/24/17 18:00 01/20/18 13:14 12/25/17 08:15 Sennosides (Senokot) 1 tab DAILY ORAL 12/25/17 09:00 01/22/18 14:59 12/25/17 08:22 Temazepam (Restoril) 15 mg HSPRN PRN ORAL Insomnia 12/24/17 21:00 12/27/17 20:59 Vitamin A/Vitamin D (A & D Oint) 1 applic EVERY 12 HOURS TOPIC 12/24/17 21:00 01/20/18 22:59 12/25/17 08:28 Steve Griffin MD Dec 25, 2017 14:10
[2017-12-25] MEDS ORDERED: Albuterol/Ipratropium 3ml neb HHN PRN (15:00)
[2017-12-25 16:00] VITALS: BP 136/76
--- NOTE | 2017-12-25 16:45 | Consultation ---
DATE OF CONSULTATION: 12/24/2017 CARDIOLOGY CONSULTATION CONSULTING PHYSICIAN: Tanvir Etienne M.D. REFERRING PHYSICIAN: Leni Watts M.D. REASON FOR REFERRAL: Arrhythmia. HISTORY OF PRESENT ILLNESS: This is a very unfortunate elderly female, who has been admitted to [facility] initially on 12/20/2017. The initial presentation was by paramedics because of hypoxemia secondary to chronic obstructive pulmonary disease and has been treated over the past few days and has been noted to have issues with diabetes being out of control and chronic obstructive pulmonary disease exacerbation, respiratory failure, and now recently, she has been having some tachycardia and this consultation was requested. The patient absolutely denies any pain, pressure, tightness, or heaviness in the chest. Denies any shortness of breath at the present time. Denies any palpitation. Denies any dizziness or lightheadedness. She is basically bedbound or wheelchair bound. She does stand up to get in to the wheelchair and occasionally gets dizzy or lightheaded. PAST MEDICAL HISTORY: Positive for diabetes and high blood pressure. She denies any history of heart attack. No cancer. No stroke. No hepatitis or tuberculosis. No asthma or emphysema. No ulcers. No kidney problems, liver problems, thyroid problems, anemia, or arthritis. ALLERGIES: She is not allergic to any medications. SOCIAL HISTORY: She does not smoke or drink or use drugs at this time although she used to smoke and used cocaine 20 years ago. REVIEW OF SYSTEMS: GASTROINTESTINAL: She has had some constipation. GENITOURINARY: Negative. PULMONARY: Occasional coughing and minimal sputum production. CONSTITUTIONAL: Negative. NEUROLOGIC: She denies. PHYSICAL EXAMINATION: GENERAL: Shows to be an elderly female, in no respiratory distress. She is comfortable with 30 degrees and 40 degrees head of bed elevation. VITAL SIGNS: Her heart rate is anywhere between 94 to 107, blood pressure is between 106/68 to 143/83 today, and she is afebrile at 97.8. NECK: Supple. LUNGS: There are crackles on the right side. There is decreased breath sounds in the left base. CARDIAC: Regular rhythm. Tachycardic. No heaves or thrills noted. ABDOMEN: Soft and nontender. Positive bowel sounds. EXTREMITY: There is no edema. NEUROLOGIC: She is awake, alert, responsive, and in no apparent distress. LABORATORY DATA: White count 4.4, hemoglobin 11.1, and a platelet count of 114,000. These all seem to be stable. Her blood gases, pH of 7.33, pCO2 of 81, and a pO2 of 46 with O2 saturation of 83% possibly venous or at least mixed venous. Sodium 142, potassium 4.2, chloride 101, bicarb of 43, BUN of 31, creatinine 1.1, and glucose of 235. Her blood sugar has been as high as 391 and her liver function tests are normal. Albumin is 2.7. The patient has had a chest x-ray performed yesterday that showed no acute disease processes and an echocardiogram that has been performed on 12/22/2017 showed ventricular function to be normal except for basal and mid posterior wall with ejection fraction of 55% to 60%, no significant valvular regurgitation, and she had mild diastolic relaxation abnormalities. Her electrocardiogram shows what appears to be sinus tachycardia. Premature ventricular complexes are noted and lot of tremor artifact is noted as well. The QRS axis appears to be normal. No significant ST or T-wave abnormalities documented. Telemetry also appears to show what appears to be sinus tachycardia. P-wave morphology appears to be relatively stable although she does have PACs as well. ASSESSMENT: 1. Sinus tachycardia with premature atrial complexes. 2. Chronic obstructive pulmonary disease. 3. Diabetes mellitus. 4. Hypertension history. PLAN: Dr. Watts, this patient was seen in cardiac consultation. The patient has no signs or symptoms of coronary syndrome. She denies any shortness of breath and obviously, she has been admitted to the hospital because of hypoxemia. So, I suspect that she is a poor historian. She has CO2 on her chemistry panel that are suggestive of chronic CO2 retention and possibly respiratory acidosis, metabolic compensation, so probably her chronic obstructive pulmonary disease has been long standing. She does not appear to have any congestive heart failure. She denies any chest pain. A set of cardiac enzymes will be ordered. Her EKG will be repeated since likely the sinus tachycardia or sinus rhythm is due to demand and I doubt specific arrhythmias. She will have cardiac enzymes to be checked as well. The thyroid-stimulating hormone if not been checked will be ordered. She has had some low magnesium and potassium levels that have been supplemented and both appeared to be adequately controlled at this time. Nonspecific antiarrhythmic needs to be given at this time, but I will follow the patient along with you. Tanvir Etienne M.D. DR: HARINI JOB#: [id number] CC:
--- NOTE | 2017-12-25 18:48 | General Progress Note ---
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 Subjective Date patient seen: Dec 25, 2017 Neurologic/Psychiatric: Reports: anxiety, depressed, emotional problems Allergies: Coded Allergies: Shrimp (Unverified Allergy, Unknown, 12/04/17) Objective Last 24 Hour Vital Signs Date Time Temp Pulse Resp B/P (MAP) Pulse Ox O2 Delivery O2 Flow Rate FiO2 12/25/17 16:00 114 12/25/17 16:00 97.7 109 23 136/76 87 Nasal Cannula 0.5 97.7 12/25/17 12:00 97.8 107 24 123/64 90 Nasal Cannula 0.5 97.8 12/25/17 12:00 134 12/25/17 08:15 105 106/60 12/25/17 08:00 99 12/25/17 08:00 97.8 107 21 106/68 93 Nasal Cannula 0.5 97.8 12/25/17 07:18 100 Nasal Cannula 2.0 28 12/25/17 07:18 Room Air 2.0 28 12/25/17 07:18 85 20 Nasal Cannula 2.0 28 12/25/17 04:00 84 12/25/17 04:00 97.0 94 20 125/77 99 Nasal Cannula 0.5 97.0 12/25/17 00:00 97.3 101 21 114/68 94 Nasal Cannula 0.5 97.3 12/25/17 00:00 89 12/24/17 20:00 116 12/24/17 20:00 97.0 114 22 143/83 93 Nasal Cannula 0.5 97.0 12/24/17 19:37 93 Nasal Cannula 2.0 28 12/24/17 19:37 Room Air 2.0 28 12/24/17 19:37 118 20 Nasal Cannula 2.0 28 Intake and Output 12/24/17 12/25/17 19:00 07:00 Intake Total 116 ml 116 ml Balance 116 ml 116 ml Intake Oral 116 ml 116 ml # Voids 3 1 Laboratory Tests 12/25/17 05:15: White Blood Count 4.4L, Red Blood Count 4.19L, Hemoglobin 11.1L, Hematocrit 36.3L, Mean Corpuscular Volume 87, Mean Corpuscular Hemoglobin 26.5L, Mean Corpuscular Hemoglobin Concent 30.6L, Red Cell Distribution Width 14.2, Platelet Count 114L, Mean Platelet Volume 7.6, Neutrophils (%) (Auto) , Lymphocytes (%) (Auto) , Monocytes (%) (Auto) , Eosinophils (%) (Auto) , Basophils (%) (Auto) , Differential Total Cells Counted 100, Neutrophils % ( Manual) 79H, Lymphocytes % (Manual) 19L, Monocytes % (Manual) 2, Eosinophils % ( Manual) 0, Basophils % (Manual) 0, Band Neutrophils 0, Platelet Estimate DecreasedL, Platelet Morphology Normal, Hypochromasia 1+, Stomatocytes 1+, Sodium Level 142, Potassium Level 4.2, Chloride Level 101, Carbon Dioxide Level 43*H, Blood Urea Nitrogen 31H, Creatinine 1.1, Estimat Glomerular Filtration Rate 59.9, Glucose Level 235H, Calcium Level 8.8, Phosphorus Level 3.8, Magnesium Level 2.1, Total Bilirubin 0.4, Aspartate Amino Transf (AST/SGOT) 56H , Alanine Aminotransferase (ALT/SGPT) 82H, Alkaline Phosphatase 42L, Total Protein 6.3L, Albumin 2.7L, Globulin 3.6, Albumin/Globulin Ratio 0.8L Height (Feet): 5 Height (Inches): 4.00 Weight (Pounds): 163 Grisel Jay M.D. Dec 25, 2017 18:48
[2017-12-25 20:00] VITALS: BP 140/76
[2017-12-25] MEDS: Miralax 17gm pkt ORAL SCH (20:21)
[2017-12-25] MEDS: Dyna-Hex 2% Top Sol 2oz TOPIC SCH (20:21)
[2017-12-26] VITALS: BP 148/91
[2017-12-26 04:00] VITALS: BP 140/84
[2017-12-26] MEDS: Solu-MEDROL 125mg Inj IV SCH ×2 (05:07→12:00)
[2017-12-26] MEDS: NovoLOG Insulin Flexpen SUBQ SCH ×7 (05:56→21:00)
[2017-12-26 08:00] VITALS: BP 139/90
[2017-12-26] MEDS: Heparin 5000 units/ml inj SUBQ SCH ×2 (08:15→21:00)
[2017-12-26] MEDS: Docusate 100mg cap ORAL SCH ×5 (08:17→18:00)
[2017-12-26] MEDS: Levemir Flexpen SUBQ SCH ×2 (08:18→21:00)
[2017-12-26] MEDS: Sennosides 8.6mg ORAL SCH (08:19)
[2017-12-26] MEDS: Vitamin A&D Oint 2oz Tube TOPIC SCH ×2 (08:25→21:44)
[2017-12-26 09:09] LABS: BASOPHILS % (AUTO) 0.6 % (0.0-2.0); HEMATOCRIT 37.9 % (37.0-47.0); HEMOGLOBIN 11.7 G/DL (12.0-16.0); LYMPHOCYTES % (AUTO) 21.1 % (20.0-45.0); MEAN CORPUSCULAR VOLUME 86 FL (80-99); MONOCYTES % (AUTO) 3.2 % (1.0-10.0); NEUTROPHILS % (AUTO) 75.2 % (45.0-75.0); PLATELET COUNT 123 K/UL (150-450); RED BLOOD COUNT 4.42 M/UL (4.20-5.40); WHITE BLOOD COUNT 5.5 K/UL (4.8-10.8)
[2017-12-26 09:37] LABS: ALANINE AMINOTRANSFERASE 96 U/L (12-78); ALBUMIN 2.9 G/DL (3.4-5.0); ALBUMIN/GLOBULIN RATIO 0.9 (1.0-2.7); ALKALINE PHOSPHATASE 41 U/L (46-116); ANION GAP -1 mmol/L (5-15); ASPARTATE AMINO TRANSFERASE 51 U/L (15-37); BILIRUBIN,TOTAL 0.4 MG/DL (0.2-1.0); BLOOD UREA NITROGEN 32 mg/dL (7-18); CALCIUM 9.1 MG/DL (8.5-10.1); CHLORIDE 102 MMOL/L (98-107); PHOSPHORUS 2.3 MG/DL (2.5-4.9); POTASSIUM 3.2 MMOL/L (3.5-5.1); SODIUM 144 MMOL/L (136-145)
[2017-12-26 09:54] LABS: CARBON DIOXIDE 43 MMOL/L (21-32)
[2017-12-26] MEDS ORDERED: Ipratropium 0.02% Inh Soln 2.5ml UD HHN PRN ×2 (10:00→15:50)
[2017-12-26 11:54] VITALS: BP 145/81
--- NOTE | 2017-12-26 12:21 | Pulmonology Progress Note ---
Assessment/Plan Problems: (1) Acute and chronic respiratory failure (2) COPD (chronic obstructive pulmonary disease) (3) Hepatitis C Assessment/Plan improving remains tachycardic, respiratory treatment check cultures cardiology to see for tachycardia and PVCs cardio note appreciated, sinus tachy secondary to lung disease. Subjective ROS Limited/Unobtainable: No Interval Events: c/o "my urin is warm" Constitutional: Reports: no symptoms HEENT: Repors: no symptoms Allergies: Coded Allergies: Shrimp (Unverified Allergy, Unknown, 12/04/17) Objective Last 24 Hour Vital Signs Date Time Temp Pulse Resp B/P (MAP) Pulse Ox O2 Delivery O2 Flow Rate FiO2 12/26/17 11:54 98.2 111 20 145/81 94 Nasal Cannula 0.5 98.2 12/26/17 08:14 97 140/84 12/26/17 08:00 97.2 125 20 139/90 93 Nasal Cannula 0.5 97.2 12/26/17 07:50 97 Nasal Cannula 2.0 28 12/26/17 07:50 92 20 Nasal Cannula 2.0 28 12/26/17 07:50 Nasal Cannula 2.0 28 12/26/17 07:40 121 12/26/17 07:33 152 12/26/17 04:00 97.2 97 20 140/84 92 Nasal Cannula 0.5 97.2 12/26/17 03:40 112 12/26/17 00:00 98.1 117 20 148/91 93 Nasal Cannula 0.5 98.1 12/25/17 23:28 90 12/25/17 20:00 84 20 Nasal Cannula 2.0 28 12/25/17 20:00 Room Air 2.0 28 12/25/17 20:00 98 Nasal Cannula 2.0 28 12/25/17 20:00 97.9 101 18 140/76 96 Nasal Cannula 0.5 97.9 12/25/17 19:10 104 12/25/17 16:00 114 12/25/17 16:00 97.7 109 23 136/76 87 Nasal Cannula 0.5 97.7 Intake and Output 12/25/17 12/26/17 19:00 07:00 Intake Total 240 ml 0 ml Output Total 200 ml 700 ml Balance 40 ml -700 ml Intake Oral 240 ml 0 ml Output Urine Total 200 ml 700 ml # Voids 2 General Appearance: WD/WN, cachetic HEENT: normocephalic Respiratory/Chest: chest wall non-tender, lungs clear, decreased breath sounds Breasts: no masses Cardiovascular: normal peripheral pulses Abdomen: normal bowel sounds, soft, non tender Extremities: no cyanosis Skin: no rash 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 Lymphatic: no neck adenopathy Laboratory Tests 12/26/17 06:00: White Blood Count 5.5, Red Blood Count 4.42, Hemoglobin 11.7L, Hematocrit 37.9, Mean Corpuscular Volume 86, Mean Corpuscular Hemoglobin 26.6L, Mean Corpuscular Hemoglobin Concent 31.0L, Red Cell Distribution Width 14.0, Platelet Count 123L , Mean Platelet Volume 7.5, Neutrophils (%) (Auto) 75.2H, Lymphocytes (%) (Auto ) 21.1, Monocytes (%) (Auto) 3.2, Eosinophils (%) (Auto) 0.0, Basophils (%) ( Auto) 0.6, Sodium Level 144, Potassium Level 3.2L, Chloride Level 102, Carbon Dioxide Level 43*H, Anion Gap -1L, Blood Urea Nitrogen 32H, Creatinine 1.0, Estimat Glomerular Filtration Rate > 60, Glucose Level 140H, Calcium Level 9.1, Phosphorus Level 2.3L, Magnesium Level 2.0, Total Bilirubin 0.4, Aspartate Amino Transf (AST/SGOT) 51H, Alanine Aminotransferase (ALT/SGPT) 96H, Alkaline Phosphatase 41L, Troponin I 0.015, Total Protein 6.2L, Albumin 2.9L, Globulin 3.3, Albumin/Globulin Ratio 0.9L, Thyroid Stimulating Hormone (TSH) 0.338L Current Medications Medications (Trade) Dose Ordered Sig/Hansel Route PRN Reason Start Time Stop Time Status Last Admin Dose Admin Acetaminophen (Tylenol) 650 mg Q4H PRN ORAL T>100.5 12/24/17 14:30 01/19/18 14:29 Amlodipine Besylate (Norvasc) 5 mg DAILY ORAL 12/25/17 09:00 01/20/18 08:59 12/26/17 08:14 Chlorhexidine Gluconate (Jazzmine-Hex 2%) 1 applic DAILY@1999 TOPIC 12/24/17 20:00 5/6/18 19:59 12/25/17 20:21 Clonidine HCl (Catapres Tab) 0.1 mg Q4H PRN ORAL sbp more than 160mmHg 12/24/17 15:00 01/23/18 14:59 Dextrose (Dextrose 50%) 25 ml STAT PRN IV Hypoglycemia 12/24/17 15:00 01/22/18 14:59 Dextrose (Dextrose 50%) 50 ml STAT PRN IV Hypoglycemia 12/24/17 15:00 01/22/18 14:59 Docusate Sodium (Colace) 100 mg THREE TIMES A DAY ORAL 12/24/17 18:00 01/22/18 09:59 12/25/17 17:47 Heparin Sodium (Porcine) (Heparin 5000 units/ml) 5,000 units EVERY 12 HOURS SUBQ 12/24/17 21:00 01/20/18 08:59 12/26/17 08:15 Insulin Aspart (NovoLOG) BEFORE MEALS AND HS SUBQ 12/24/17 16:30 01/22/18 20:59 12/26/17 05:58 Insulin Aspart (NovoLOG) 8 units NOVOTIAC SUBQ 12/24/17 16:50 01/23/18 11:49 12/26/17 05:56 Insulin Detemir (Levemir) 15 units EVERY 12 HOURS SUBQ 12/24/17 21:00 01/23/18 20:59 12/26/17 08:18 Ipratropium Carroll (Atrovent) 500 mcg Q4H PRN HHN Shortness of Breath 12/26/17 10:00 12/31/17 09:59 Lorazepam (Ativan 2mg/ml 1ml) 0.5 mg Q4H PRN IV For Anxiety 12/24/17 15:00 12/27/17 14:59 Methylprednisolone Sodium Succinate (Solu-MEDROL) 60 mg DAILY IV 12/27/17 09:00 01/20/18 00:00 Mineral Oil (Fleet's Mineral Oil Enema) 133 ml EVERY OTHER DAY RECTAL 12/25/17 09:00 01/22/18 09:59 Morphine Sulfate (Morphine Sulfate) 2 mg Q4H PRN IVP Severe Pain (Pain Scale 7-10) 12/24/17 15:00 12/31/17 14:59 12/25/17 01:56 Nitroglycerin (Ntg) 0.4 mg Q5M X 3 DOSES PRN SL Prn Chest Pain 12/24/17 13:45 01/19/18 21:44 Ondansetron HCl (Zofran) 4 mg Q6H PRN IVP Nausea & Vomiting 12/24/17 15:45 01/19/18 21:44 Polyethylene Glycol (Miralax) 17 gm BEDTIME ORAL 12/24/17 21:00 01/22/18 20:59 12/25/17 20:21 Promethazine HCl/ Codeine (Phenergan with Codeine) 5 ml Q6H PRN ORAL cough 12/24/17 14:30 01/23/18 14:29 Risperidone (RisperDAL) 1 mg BID ORAL 12/24/17 18:00 01/20/18 13:14 12/25/17 17:47 Sennosides (Senokot) 1 tab DAILY ORAL 12/25/17 09:00 01/22/18 14:59 12/25/17 08:22 Temazepam (Restoril) 15 mg HSPRN PRN ORAL Insomnia 12/24/17 21:00 12/27/17 20:59 Vitamin A/Vitamin D (A & D Oint) 1 applic EVERY 12 HOURS TOPIC 12/24/17 21:00 01/20/18 22:59 12/26/17 08:25 Leni Watts MD Dec 26, 2017 12:21
[2017-12-26] MEDS ORDERED: Tubing IV Secondary IV ONE (14:29)
[2017-12-26] MEDS ORDERED: NS 275ml ONE (14:29)
[2017-12-26] MEDS ORDERED: Potassium Chloride 40 MEQ in Sodium Chloride 500ML 550 ML IVPB ONE ×2 (15:30→16:30)
--- NOTE | 2017-12-26 15:37 | General Progress Note ---
Assessment/Plan Assessment/Plan encephalopathy [place] [facility] [place] Subjective Date patient seen: Dec 26, 2017 Neurologic/Psychiatric: Reports: anxiety, depressed, emotional problems Allergies: Coded Allergies: Shrimp (Unverified Allergy, Unknown, 12/04/17) Subjective the pt is calm no psychotic sxs. no agitation Objective Last 24 Hour Vital Signs Date Time Temp Pulse Resp B/P (MAP) Pulse Ox O2 Delivery O2 Flow Rate FiO2 12/26/17 12:00 103 12/26/17 11:54 98.2 111 20 145/81 94 Nasal Cannula 0.5 98.2 12/26/17 08:14 97 140/84 12/26/17 08:00 97.2 125 20 139/90 93 Nasal Cannula 0.5 97.2 12/26/17 07:50 97 Nasal Cannula 2.0 28 12/26/17 07:50 92 20 Nasal Cannula 2.0 28 12/26/17 07:50 Nasal Cannula 2.0 28 12/26/17 07:40 121 12/26/17 07:33 152 12/26/17 04:00 97.2 97 20 140/84 92 Nasal Cannula 0.5 97.2 12/26/17 03:40 112 12/26/17 00:00 98.1 117 20 148/91 93 Nasal Cannula 0.5 98.1 12/25/17 23:28 90 12/25/17 20:00 84 20 Nasal Cannula 2.0 28 12/25/17 20:00 Room Air 2.0 28 12/25/17 20:00 98 Nasal Cannula 2.0 28 12/25/17 20:00 97.9 101 18 140/76 96 Nasal Cannula 0.5 97.9 12/25/17 19:10 104 12/25/17 16:00 114 12/25/17 16:00 97.7 109 23 136/76 87 Nasal Cannula 0.5 97.7 Intake and Output 12/25/17 12/26/17 19:00 07:00 Intake Total 240 ml 0 ml Output Total 200 ml 700 ml Balance 40 ml -700 ml Intake Oral 240 ml 0 ml Output Urine Total 200 ml 700 ml # Voids 2 Laboratory Tests 12/26/17 06:00: White Blood Count 5.5, Red Blood Count 4.42, Hemoglobin 11.7L, Hematocrit 37.9, Mean Corpuscular Volume 86, Mean Corpuscular Hemoglobin 26.6L, Mean Corpuscular Hemoglobin Concent 31.0L, Red Cell Distribution Width 14.0, Platelet Count 123L , Mean Platelet Volume 7.5, Neutrophils (%) (Auto) 75.2H, Lymphocytes (%) (Auto ) 21.1, Monocytes (%) (Auto) 3.2, Eosinophils (%) (Auto) 0.0, Basophils (%) ( Auto) 0.6, Sodium Level 144, Potassium Level 3.2L, Chloride Level 102, Carbon Dioxide Level 43*H, Anion Gap -1L, Blood Urea Nitrogen 32H, Creatinine 1.0, Estimat Glomerular Filtration Rate > 60, Glucose Level 140H, Calcium Level 9.1, Phosphorus Level 2.3L, Magnesium Level 2.0, Total Bilirubin 0.4, Aspartate Amino Transf (AST/SGOT) 51H, Alanine Aminotransferase (ALT/SGPT) 96H, Alkaline Phosphatase 41L, Troponin I 0.015, Total Protein 6.2L, Albumin 2.9L, Globulin 3.3, Albumin/Globulin Ratio 0.9L, Thyroid Stimulating Hormone (TSH) 0.338L Height (Feet): 5 Height (Inches): 4.00 Weight (Pounds): 157 General Appearance: no apparent distress, alert, obese Neurologic: oriented x 3, responsive, depressed affect Grisel Jay M.D. Dec 26, 2017 15:37
[2017-12-26] MEDS ORDERED: LORazepam Inj 2mg/ml 1ml IV PRN (15:51)
[2017-12-26] MEDS ORDERED: Morphine Sulfate 4mg/ml Inj IVP PRN (15:58)
[2017-12-26] MEDS ORDERED: Nitroglycerin Subl 0.4mg tab SL PRN (15:59)
[2017-12-26 16:00] VITALS: BP 128/71
[2017-12-26] MEDS ORDERED: Promethazine/Codeine 5ml UD ORAL PRN (16:01)
--- NOTE | 2017-12-26 17:01 | Cardiology Report ---
APPROVED REPORT EKG Measurement Heart [id number] Sinus rhythm with premature atrial complexes with aberrant conduction Minimal voltage criteria for LVH, may be normal variant ST elevation, consider early repolarization, pericarditis, or injury Abnormal ECG
--- NOTE | 2017-12-26 17:23 | Cardiology Report ---
APPROVED REPORT EKG Measurement Heart [id number] [id number] Sinus tachycardia with premature supraventricular complexes Nonspecific ST abnormality Abnormal ECG
--- NOTE | 2017-12-26 17:50 | Cardiology Report ---
APPROVED REPORT EKG Measurement Heart [id number] Sinus tachycardia Minimal voltage criteria for LVH, may be normal variant ST elevation, consider early repolarization, pericarditis, or injury Abnormal ECG
--- NOTE | 2017-12-26 18:54 | Infectious Diseases Prog Note ---
Assessment/Plan Assessment/Plan Assessment: Acute hypoxic resp failure improved COPD exacerbation- -CXR: No acute disease Afebrile, no leukocytosis Recent acute hypoxic failure and PNA 11/2015 -sp cx 12/04: E.coli (davila S), P. mirabilis (davila S) Influenza sc : Neg hx of trach s/p removal COPD Hep C Dm2 HTN [facility] resident Plan: - Monitor pt off of AB Rx 12/24 SP Levaquin # 5 /5 for COPD exacerbation and monitor pt off of AB Rx -12/10 SP Cefepime #7 -12/06 SP Vanco #3 -Monitor CBC/BMP, temperatures -aspiration precautions Subjective Allergies: Coded Allergies: Shrimp (Unverified Allergy, Unknown, 12/04/17) Subjective Afebrile Objective Vital Signs Last 24 Hour Vital Signs Date Time Temp Pulse Resp B/P (MAP) Pulse Ox O2 Delivery O2 Flow Rate FiO2 12/26/17 16:00 97.9 109 20 128/71 97 97.9 12/26/17 12:00 103 12/26/17 11:54 98.2 111 20 145/81 94 Nasal Cannula 0.5 98.2 12/26/17 08:14 97 140/84 12/26/17 08:00 97.2 125 20 139/90 93 Nasal Cannula 0.5 97.2 12/26/17 07:50 97 Nasal Cannula 2.0 28 12/26/17 07:50 92 20 Nasal Cannula 2.0 28 12/26/17 07:50 Nasal Cannula 2.0 28 12/26/17 07:40 121 12/26/17 07:33 152 12/26/17 04:00 97.2 97 20 140/84 92 Nasal Cannula 0.5 97.2 12/26/17 03:40 112 12/26/17 00:00 98.1 117 20 148/91 93 Nasal Cannula 0.5 98.1 12/25/17 23:28 90 12/25/17 20:00 84 20 Nasal Cannula 2.0 28 12/25/17 20:00 Room Air 2.0 28 12/25/17 20:00 98 Nasal Cannula 2.0 28 12/25/17 20:00 97.9 101 18 140/76 96 Nasal Cannula 0.5 97.9 12/25/17 19:10 104 Height (Feet): 5 Height (Inches): 4.00 Weight (Pounds): 157 HEENT: anicteric Respiratory/Chest: no respiratory distress Cardiovascular: regularly irregular Abdomen: soft, non tender Laboratory Tests Test 12/26/17 06:00 White Blood Count 5.5 K/UL (4.8-10.8) Red Blood Count 4.42 M/UL (4.20-5.40) Hemoglobin 11.7 G/DL (12.0-16.0) L Hematocrit 37.9 % (37.0-47.0) Mean Corpuscular Volume 86 FL (80-99) Mean Corpuscular Hemoglobin 26.6 PG (27.0-31.0) L Mean Corpuscular Hemoglobin Concent 31.0 G/DL (32.0-36.0) L Red Cell Distribution Width 14.0 % (11.6-14.8) Platelet Count 123 K/UL (150-450) L Mean Platelet Volume 7.5 FL (6.5-10.1) Neutrophils (%) (Auto) 75.2 % (45.0-75.0) H Lymphocytes (%) (Auto) 21.1 % (20.0-45.0) Monocytes (%) (Auto) 3.2 % (1.0-10.0) Eosinophils (%) (Auto) 0.0 % (0.0-3.0) Basophils (%) (Auto) 0.6 % (0.0-2.0) Sodium Level 144 MMOL/L (136-145) Potassium Level 3.2 MMOL/L (3.5-5.1) L Chloride Level 102 MMOL/L (98-107) Carbon Dioxide Level 43 MMOL/L (21-32) *H Anion Gap -1 mmol/L (5-15) L Blood Urea Nitrogen 32 mg/dL (7-18) H Creatinine 1.0 MG/DL (0.55-1.30) Estimat Glomerular Filtration Rate > 60 mL/min (>60) Glucose Level 140 MG/DL (74-106) H Calcium Level 9.1 MG/DL (8.5-10.1) Phosphorus Level 2.3 MG/DL (2.5-4.9) L Magnesium Level 2.0 MG/DL (1.8-2.4) Total Bilirubin 0.4 MG/DL (0.2-1.0) Aspartate Amino Transf (AST/SGOT) 51 U/L (15-37) H Alanine Aminotransferase (ALT/SGPT) 96 U/L (12-78) H Alkaline Phosphatase 41 U/L (46-116) L Troponin I 0.015 ng/mL (0.000-0.056) Total Protein 6.2 G/DL (6.4-8.2) L Albumin 2.9 G/DL (3.4-5.0) L Globulin 3.3 g/dL Albumin/Globulin Ratio 0.9 (1.0-2.7) L Thyroid Stimulating Hormone (TSH) 0.338 uiU/mL (0.358-3.740) Current Medications Medications (Trade) Dose Ordered Sig/Hansel Route PRN Reason Start Time Stop Time Status Last Admin Dose Admin Acetaminophen (Tylenol) 650 mg Q4H PRN ORAL T>100.5 12/26/17 15:31 01/19/18 15:30 Amlodipine Besylate (Norvasc) 5 mg DAILY ORAL 12/27/17 09:00 01/20/18 08:59 Chlorhexidine Gluconate (Jazzmine-Hex 2%) 1 applic DAILY@2000 TOPIC 12/26/17 20:00 01/20/18 19:59 Clonidine HCl (Catapres Tab) 0.1 mg Q4H PRN ORAL sbp more than 160mmHg 12/26/17 15:31 01/23/18 15:30 Dextrose (Dextrose 50%) 25 ml STAT PRN IV Blood Sugar btwn 60-69 mg/dL 12/26/17 15:33 01/25/18 15:32 Dextrose (Dextrose 50%) 50 ml STAT PRN IV BS less than 60mg/dl 12/26/17 15:34 01/25/18 15:33 Docusate Sodium (Colace) 100 mg THREE TIMES A DAY ORAL 12/26/17 18:00 01/22/18 09:59 Heparin Sodium (Porcine) (Heparin 5000 units/ml) 5,000 units EVERY 12 HOURS SUBQ 12/26/17 21:00 01/20/18 08:59 Insulin Aspart (NovoLOG) BEFORE MEALS AND HS SUBQ 12/26/17 16:30 01/22/18 20:59 12/26/17 16:49 Insulin Aspart (NovoLOG) 8 units NOVOTIAC SUBQ 12/26/17 16:50 01/23/18 11:49 12/26/17 16:48 Insulin Detemir (Levemir) 15 units EVERY 12 HOURS SUBQ 12/26/17 21:00 01/23/18 20:59 Ipratropium Hoskins (Atrovent) 500 mcg Q4H PRN HHN Shortness of Breath 12/26/17 15:50 12/31/17 15:49 Lorazepam (Ativan 2mg/ml 1ml) 0.5 mg Q4H PRN IV For Anxiety 12/26/17 15:51 12/27/17 15:50 Methylprednisolone Sodium Succinate (Solu-MEDROL) 60 mg DAILY IV 12/27/17 09:00 01/20/18 00:00 Mineral Oil (Fleet's Mineral Oil Enema) 133 ml EVERY OTHER DAY RECTAL 12/27/17 09:00 01/22/18 09:59 Morphine Sulfate (Morphine Sulfate) 2 mg Q4H PRN IVP Severe Pain (Pain Scale 7-10) 12/26/17 15:58 12/31/17 15:57 Nitroglycerin (Ntg) 0.4 mg Q5M X 3 DOSES PRN SL Prn Chest Pain 12/26/17 15:59 01/19/18 15:58 Ondansetron HCl (Zofran) 4 mg Q6H PRN IVP Nausea & Vomiting 12/26/17 16:00 01/19/18 15:59 Polyethylene Glycol (Miralax) 17 gm BEDTIME ORAL 12/26/17 21:00 01/22/18 20:59 Potassium Chloride 40 meq/ Sodium Chloride 570 ml @ 142.5 mls/ hr ONCE ONCE IVPB 12/26/17 16:30 12/26/17 20:29 12/26/17 16:31 Promethazine HCl/ Codeine (Phenergan with Codeine) 5 ml Q6H PRN ORAL cough 12/26/17 16:01 01/23/18 16:00 Risperidone (RisperDAL) 1 mg BID ORAL 12/26/17 18:00 01/20/18 13:14 12/26/17 17:26 Sennosides (Senokot) 1 tab DAILY ORAL 12/27/17 09:00 01/22/18 14:59 Temazepam (Restoril) 15 mg HSPRN PRN ORAL Insomnia 12/26/17 21:00 12/27/17 20:59 Vitamin A/Vitamin D (A & D Oint) 1 applic EVERY 12 HOURS TOPIC 12/26/17 21:00 01/20/18 22:59 Steev Griffin MD Dec 26, 2017 18:54
[2017-12-26 19:32] VITALS: BP 135/90
--- NOTE | 2017-12-26 19:58 | Cardiology Progress Note ---
Assessment/Plan Assessment/Plan 1. Sinus tachycardia with premature atrial complexes. 2. Chronic obstructive pulmonary disease. 3. Diabetes mellitus. 4. Hypertension history tle sinu tachy now off tele i dcd beta agonist inhalers seem better wathc hr if no wheezes will consider addition of bb in near future Subjective Cardiovascular: Denies: chest pain, lightheadedness, palpitations Respiratory: Denies: shortness of breath Gastrointestinal/Abdominal: Denies: abdominal pain Genitourinary: Denies: burning Objective Last 24 Hour Vital Signs Date Time Temp Pulse Resp B/P (MAP) Pulse Ox O2 Delivery O2 Flow Rate FiO2 12/26/17 19:32 98.2 121 20 135/90 97 Nasal Cannula 98.2 118 117 12/26/17 16:00 97.9 109 20 128/71 97 97.9 12/26/17 12:00 103 12/26/17 11:54 98.2 111 20 145/81 94 Nasal Cannula 0.5 98.2 12/26/17 08:14 97 140/84 12/26/17 08:00 97.2 125 20 139/90 93 Nasal Cannula 0.5 97.2 12/26/17 07:50 97 Nasal Cannula 2.0 28 12/26/17 07:50 92 20 Nasal Cannula 2.0 28 12/26/17 07:50 Nasal Cannula 2.0 28 12/26/17 07:40 121 12/26/17 07:33 152 12/26/17 04:00 97.2 97 20 140/84 92 Nasal Cannula 0.5 97.2 12/26/17 03:40 112 12/26/17 00:00 98.1 117 20 148/91 93 Nasal Cannula 0.5 98.1 12/25/17 23:28 90 12/25/17 20:00 84 20 Nasal Cannula 2.0 28 12/25/17 20:00 Room Air 2.0 28 12/25/17 20:00 98 Nasal Cannula 2.0 28 12/25/17 20:00 97.9 101 18 140/76 96 Nasal Cannula 0.5 97.9 General Appearance: no apparent distress Cardiovascular: normal rate, tachycardia - mild Respiratory/Chest: lungs clear Abdomen: normal bowel sounds, non tender, soft Extremities: no swelling Intake and Output 12/25/17 12/26/17 19:00 07:00 Intake Total 240 ml 0 ml Output Total 200 ml 700 ml Balance 40 ml -700 ml Intake Oral 240 ml 0 ml Output Urine Total 200 ml 700 ml # Voids 2 Laboratory Tests Test 12/26/17 06:00 White Blood Count 5.5 K/UL (4.8-10.8) Red Blood Count 4.42 M/UL (4.20-5.40) Hemoglobin 11.7 G/DL (12.0-16.0) L Hematocrit 37.9 % (37.0-47.0) Mean Corpuscular Volume 86 FL (80-99) Mean Corpuscular Hemoglobin 26.6 PG (27.0-31.0) L Mean Corpuscular Hemoglobin Concent 31.0 G/DL (32.0-36.0) L Red Cell Distribution Width 14.0 % (11.6-14.8) Platelet Count 123 K/UL (150-450) L Mean Platelet Volume 7.5 FL (6.5-10.1) Neutrophils (%) (Auto) 75.2 % (45.0-75.0) H Lymphocytes (%) (Auto) 21.1 % (20.0-45.0) Monocytes (%) (Auto) 3.2 % (1.0-10.0) Eosinophils (%) (Auto) 0.0 % (0.0-3.0) Basophils (%) (Auto) 0.6 % (0.0-2.0) Sodium Level 144 MMOL/L (136-145) Potassium Level 3.2 MMOL/L (3.5-5.1) L Chloride Level 102 MMOL/L (98-107) Carbon Dioxide Level 43 MMOL/L (21-32) *H Anion Gap -1 mmol/L (5-15) L Blood Urea Nitrogen 32 mg/dL (7-18) H Creatinine 1.0 MG/DL (0.55-1.30) Estimat Glomerular Filtration Rate > 60 mL/min (>60) Glucose Level 140 MG/DL (74-106) H Calcium Level 9.1 MG/DL (8.5-10.1) Phosphorus Level 2.3 MG/DL (2.5-4.9) L Magnesium Level 2.0 MG/DL (1.8-2.4) Total Bilirubin 0.4 MG/DL (0.2-1.0) Aspartate Amino Transf (AST/SGOT) 51 U/L (15-37) H Alanine Aminotransferase (ALT/SGPT) 96 U/L (12-78) H Alkaline Phosphatase 41 U/L (46-116) L Troponin I 0.015 ng/mL (0.000-0.056) Total Protein 6.2 G/DL (6.4-8.2) L Albumin 2.9 G/DL (3.4-5.0) L Globulin 3.3 g/dL Albumin/Globulin Ratio 0.9 (1.0-2.7) L Thyroid Stimulating Hormone (TSH) 0.338 uiU/mL (0.358-3.740) STEVO WAGNER Dec 26, 2017 19:58
[2017-12-26] MEDS: Dyna-Hex 2% Top Sol 2oz TOPIC SCH (20:00)
[2017-12-26] MEDS: Miralax 17gm pkt ORAL SCH (21:00)
[2017-12-27 00:45] VITALS: BP 137/78
[2017-12-27 04:35] VITALS: BP 117/80
[2017-12-27] MEDS: NovoLOG Insulin Flexpen SUBQ SCH ×7 (07:06→20:34)
[2017-12-27 07:18] LABS: ALANINE AMINOTRANSFERASE 85 U/L (12-78); ALBUMIN 2.7 G/DL (3.4-5.0); ALBUMIN/GLOBULIN RATIO 0.9 (1.0-2.7); ALKALINE PHOSPHATASE 40 U/L (46-116); ASPARTATE AMINO TRANSFERASE 41 U/L (15-37); BILIRUBIN,TOTAL 0.5 MG/DL (0.2-1.0); BLOOD UREA NITROGEN 29 mg/dL (7-18); CALCIUM 8.6 MG/DL (8.5-10.1); CHLORIDE 101 MMOL/L (98-107); CREATININE 0.8 MG/DL (0.55-1.30); PHOSPHORUS 2.7 MG/DL (2.5-4.9); POTASSIUM 4.1 MMOL/L (3.5-5.1); SODIUM 142 MMOL/L (136-145)
[2017-12-27 07:19] LABS: HEMATOCRIT 36.4 % (37.0-47.0); HEMOGLOBIN 11.4 G/DL (12.0-16.0); MEAN CORPUSCULAR VOLUME 85 FL (80-99); PLATELET COUNT 115 K/UL (150-450); RED BLOOD COUNT 4.28 M/UL (4.20-5.40); RED CELL DISTRIBUTION WIDTH 14.3 % (11.6-14.8); WHITE BLOOD COUNT 8.7 K/UL (4.8-10.8)
[2017-12-27 07:58] LABS: CARBON DIOXIDE 43 MMOL/L (21-32)
[2017-12-27 08:00] VITALS: BP 126/64
[2017-12-27] MEDS: Fleet's Mineral Oil Enema RECTAL SCH (09:00)
[2017-12-27] MEDS ORDERED: Solu-MEDROL 125mg Inj IV SCH (09:00)
[2017-12-27] MEDS: Heparin 5000 units/ml inj SUBQ SCH ×2 (09:00→20:31)
[2017-12-27] MEDS: Docusate 100mg cap ORAL SCH ×2 (09:12→17:19)
[2017-12-27] MEDS: Sennosides 8.6mg ORAL SCH (09:13)
[2017-12-27] MEDS: Solu-MEDROL 125mg Inj IV SCH (09:13)
[2017-12-27] MEDS: Vitamin A&D Oint 2oz Tube TOPIC SCH ×2 (09:14→20:33)
[2017-12-27] MEDS: Levemir Flexpen SUBQ SCH ×2 (09:14→20:34)
[2017-12-27 12:04] VITALS: BP 132/75
[2017-12-27 13:45] LABS: FERRITIN 90 NG/ML (8-388); LACTATE DEHYDROGENASE 211 U/L (81-234)
[2017-12-27 14:01] LABS: % IRON SATURATION 48 % (15-50); IRON 110 ug/dL (50-175); TOTAL IRON BINDING CAPACITY 230 ug/dL (250-450)
[2017-12-27 14:41] LABS: INR 1.1 (0.9-1.1)
--- NOTE | 2017-12-27 14:53 | General Progress Note ---
Assessment/Plan Problem List: (1) Diabetes mellitus out of control ICD Codes: E11.65 - Type 2 diabetes mellitus with hyperglycemia SNOMED: 87657583, [id number] (2) COPD (chronic obstructive pulmonary disease) ICD Codes: J44.9 - Chronic obstructive pulmonary disease, unspecified SNOMED: 17653798 (3) Acute and chronic respiratory failure ICD Codes: J96.20 - Acute and chronic respiratory failure, unspecified whether with hypoxia or hypercapnia SNOMED: 80030504 Assessment/Plan continue Levemir 15 units bid continue Novolog 8 units ac tid continue NISS Subjective Allergies: Coded Allergies: Shrimp (Unverified Allergy, Unknown, 12/04/17) All Systems: reviewed and negative except above Subjective events noted glucose values improved still on IVSM Objective Last 24 Hour Vital Signs Date Time Temp Pulse Resp B/P (MAP) Pulse Ox O2 Delivery O2 Flow Rate FiO2 12/27/17 12:04 98.1 110 20 132/75 97 98.1 12/27/17 09:13 95 126/64 12/27/17 08:28 Nasal Cannula 3.0 12/27/17 08:27 94 Nasal Cannula 3.0 28 12/27/17 08:26 95 20 Nasal Cannula 3.0 28 12/27/17 08:00 97.5 113 20 126/64 95 97.5 12/27/17 04:35 98.2 104 20 117/80 97 Nasal Cannula 98.2 12/27/17 04:00 Nasal Cannula 2.0 12/27/17 00:45 98.1 93 20 137/78 98 Room Air 98.1 98 115 12/27/17 00:00 Nasal Cannula 2.0 12/26/17 20:05 116 20 Nasal Cannula 2.0 28 12/26/17 20:05 98 Nasal Cannula 2.0 28 12/26/17 20:05 Nasal Cannula 2.0 28 12/26/17 20:00 Nasal Cannula 2.0 12/26/17 19:32 98.2 121 20 135/90 97 Nasal Cannula 98.2 118 117 12/26/17 16:00 97.9 109 20 128/71 97 97.9 Intake and Output 12/26/17 12/27/17 19:00 07:00 Intake Total 330 ml Output Total 850 ml Balance -520 ml Intake Oral 330 ml Output Urine Total 850 ml # Voids 1 # Bowel Movements 2 Laboratory Tests 12/27/17 04:56: White Blood Count 8.7#, Red Blood Count 4.28, Hemoglobin 11.4L, Hematocrit 36.4L , Mean Corpuscular Volume 85, Mean Corpuscular Hemoglobin 26.6L, Mean Corpuscular Hemoglobin Concent 31.2L, Red Cell Distribution Width 14.3, Platelet Count 115L, Mean Platelet Volume 9.1, Neutrophils (%) (Auto) , Lymphocytes (%) (Auto) , Monocytes (%) (Auto) , Eosinophils (%) (Auto) , Basophils (%) (Auto) , Differential Total Cells Counted 100, Neutrophils % ( Manual) 64, Lymphocytes % (Manual) 28, Monocytes % (Manual) 4, Eosinophils % ( Manual) 0, Basophils % (Manual) 0, Band Neutrophils 4, Platelet Estimate DecreasedL, Platelet Morphology Normal, Stomatocytes 1+, Reticulocyte Count 0.7 , Sodium Level 142, Potassium Level 4.1, Chloride Level 101, Carbon Dioxide Level 43*H, Blood Urea Nitrogen 29H, Creatinine 0.8, Estimat Glomerular Filtration Rate > 60, Glucose Level 181H, Calcium Level 8.6, Phosphorus Level 2.7, Magnesium Level 1.7L, Iron Level 110, Total Iron Binding Capacity 230L, Percent Iron Saturation 48, Unsaturated Iron Binding 120, Ferritin 90, Total Bilirubin 0.5, Aspartate Amino Transf (AST/SGOT) 41H, Alanine Aminotransferase ( ALT/SGPT) 85H, Alkaline Phosphatase 40L, Lactate Dehydrogenase 211, Total Protein 5.7L, Albumin 2.7L, Globulin 3.0, Albumin/Globulin Ratio 0.9L, Vitamin B12 Level 821, Folate 6.6L, Thyroid Stimulating Hormone (TSH) 1.425, HIV (1&2) Antibody Rapid Negative 12/27/17 13:15: Haptoglobin [Pending], Prothrombin Time 11.0, Prothromb Time International Ratio 1.1, Fibrinogen 175L, Hepatitis A IgM Antibody [Pending], Hepatitis B Surface Antigen [Pending], Hepatitis B Core IgM Antibody [Pending], Hepatitis C Antibody [Pending] Height (Feet): 5 Height (Inches): 4.00 Weight (Pounds): 154 General Appearance: no apparent distress Neck: normal alignment Cardiovascular: normal rate Respiratory/Chest: decreased breath sounds Abdomen: normal bowel sounds Objective Current Medications Medications (Trade) Dose Ordered Sig/Hansel Route PRN Reason Start Time Stop Time Status Last Admin Dose Admin Acetaminophen (Tylenol) 650 mg Q4H PRN ORAL T>100.5 12/26/17 15:31 01/19/18 15:30 Amlodipine Besylate (Norvasc) 5 mg DAILY ORAL 12/27/17 09:00 01/20/18 08:59 12/27/17 09:13 Chlorhexidine Gluconate (Jazzmine-Hex 2%) 1 applic DAILY@2000 TOPIC 12/26/17 20:00 01/20/18 19:59 Clonidine HCl (Catapres Tab) 0.1 mg Q4H PRN ORAL sbp more than 160mmHg 12/26/17 15:31 01/23/18 15:30 Dextrose (Dextrose 50%) 25 ml STAT PRN IV Blood Sugar btwn 60-69 mg/dL 12/26/17 15:33 01/25/18 15:32 12/26/17 21:55 Dextrose (Dextrose 50%) 50 ml STAT PRN IV BS less than 60mg/dl 12/26/17 15:34 01/25/18 15:33 Docusate Sodium (Colace) 100 mg THREE TIMES A DAY ORAL 12/26/17 18:00 01/22/18 09:59 12/27/17 09:12 Heparin Sodium (Porcine) (Heparin 5000 units/ml) 5,000 units EVERY 12 HOURS SUBQ 12/26/17 21:00 01/20/18 08:59 Insulin Aspart (NovoLOG) BEFORE MEALS AND HS SUBQ 12/26/17 16:30 01/22/18 20:59 12/27/17 14:14 Insulin Aspart (NovoLOG) 8 units NOVOTIAC SUBQ 12/26/17 16:50 01/23/18 11:49 12/27/17 14:14 Insulin Detemir (Levemir) 15 units EVERY 12 HOURS SUBQ 12/26/17 21:00 01/23/18 20:59 12/27/17 09:14 Ipratropium [place] (Atrovent) 500 mcg Q4H PRN HHN Shortness of Breath 12/26/17 15:50 12/31/17 15:49 Lorazepam (Ativan 2mg/ml 1ml) 0.5 mg Q4H PRN IV For Anxiety 12/26/17 15:51 12/27/17 15:50 Methylprednisolone Sodium Succinate (Solu-MEDROL) 60 mg DAILY IV 12/27/17 09:00 01/20/18 00:00 12/27/17 09:13 Mineral Oil (Fleet's Mineral Oil Enema) 133 ml EVERY OTHER DAY RECTAL 12/27/17 09:00 01/22/18 09:59 Morphine Sulfate (Morphine Sulfate) 2 mg Q4H PRN IVP Severe Pain (Pain Scale 7-10) 12/26/17 15:58 12/31/17 15:57 Nitroglycerin (Ntg) 0.4 mg Q5M X 3 DOSES PRN SL Prn Chest Pain 12/26/17 15:59 01/19/18 15:58 Ondansetron HCl (Zofran) 4 mg Q6H PRN IVP Nausea & Vomiting 12/26/17 16:00 01/19/18 15:59 Polyethylene Glycol (Miralax) 17 gm BEDTIME ORAL 12/26/17 21:00 01/22/18 20:59 Promethazine HCl/ Codeine (Phenergan with Codeine) 5 ml Q6H PRN ORAL cough 12/26/17 16:01 01/23/18 16:00 Risperidone (RisperDAL) 1 mg BID ORAL 12/26/17 18:00 01/20/18 13:14 12/27/17 09:13 Sennosides (Senokot) 1 tab DAILY ORAL 12/27/17 09:00 01/22/18 14:59 12/27/17 09:13 Temazepam (Restoril) 15 mg HSPRN PRN ORAL Insomnia 12/26/17 21:00 12/27/17 20:59 Vitamin A/Vitamin D (A & D Oint) 1 applic EVERY 12 HOURS TOPIC 12/26/17 21:00 01/20/18 22:59 12/27/17 09:14 Item Value Date Time Bedside Blood Glucose 140 mg/dl H 12/27/17 1414 Bedside Blood Glucose 171 mg/dl H 12/27/17 0914 Bedside Blood Glucose 171 mg/dl H 12/27/17 0553 Bedside Blood Glucose 122 mg/dl H 12/26/17 2226 Bedside Blood Glucose 192 mg/dl H 12/26/17 1649 Bedside Blood Glucose 235 mg/dl H 12/26/17 1238 FEMI MCKEON Dec 27, 2017 14:53
--- NOTE | 2017-12-27 15:30 | Pulmonology Progress Note ---
Assessment/Plan Problems: (1) Acute and chronic respiratory failure (2) COPD (chronic obstructive pulmonary disease) (3) Hepatitis C Assessment/Plan improving remains tachycardic, respiratory treatment check cultures dc to nursign home Subjective ROS Limited/Unobtainable: No Constitutional: Reports: no symptoms HEENT: Repors: no symptoms Respiratory: Reports: no symptoms Cardiovascular: Reports: no symptoms Gastrointestinal/Abdominal: Reports: no symptoms Allergies: Coded Allergies: Shrimp (Unverified Allergy, Unknown, 12/04/17) Objective Last 24 Hour Vital Signs Date Time Temp Pulse Resp B/P (MAP) Pulse Ox O2 Delivery O2 Flow Rate FiO2 12/27/17 12:04 98.1 110 20 132/75 97 98.1 12/27/17 09:13 95 126/64 12/27/17 08:28 Nasal Cannula 3.0 12/27/17 08:27 94 Nasal Cannula 3.0 28 12/27/17 08:26 95 20 Nasal Cannula 3.0 28 12/27/17 08:00 97.5 113 20 126/64 95 97.5 12/27/17 04:35 98.2 104 20 117/80 97 Nasal Cannula 98.2 12/27/17 04:00 Nasal Cannula 2.0 12/27/17 00:45 98.1 93 20 137/78 98 Room Air 98.1 98 115 12/27/17 00:00 Nasal Cannula 2.0 12/26/17 20:05 116 20 Nasal Cannula 2.0 28 12/26/17 20:05 98 Nasal Cannula 2.0 28 12/26/17 20:05 Nasal Cannula 2.0 28 12/26/17 20:00 Nasal Cannula 2.0 12/26/17 19:32 98.2 121 20 135/90 97 Nasal Cannula 98.2 118 117 12/26/17 16:00 97.9 109 20 128/71 97 97.9 Intake and Output 12/26/17 12/27/17 19:00 07:00 Intake Total 330 ml Output Total 850 ml Balance -520 ml Intake Oral 330 ml Output Urine Total 850 ml # Voids 1 # Bowel Movements 2 General Appearance: cachetic HEENT: normocephalic Respiratory/Chest: chest wall non-tender, lungs clear Breasts: no masses Cardiovascular: normal peripheral pulses, normal rate Abdomen: normal bowel sounds, soft, non tender Extremities: no cyanosis, no clubbing Neurologic/Psychiatric: it program auditor II-XII grossly normal, no motor/sensory deficits Lymphatic: no neck adenopathy Laboratory Tests 12/27/17 04:56: White Blood Count 8.7#, Red Blood Count 4.28, Hemoglobin 11.4L, Hematocrit 36.4L , Mean Corpuscular Volume 85, Mean Corpuscular Hemoglobin 26.6L, Mean Corpuscular Hemoglobin Concent 31.2L, Red Cell Distribution Width 14.3, Platelet Count 115L, Mean Platelet Volume 9.1, Neutrophils (%) (Auto) , Lymphocytes (%) (Auto) , Monocytes (%) (Auto) , Eosinophils (%) (Auto) , Basophils (%) (Auto) , Differential Total Cells Counted 100, Neutrophils % ( Manual) 64, Lymphocytes % (Manual) 28, Monocytes % (Manual) 4, Eosinophils % ( Manual) 0, Basophils % (Manual) 0, Band Neutrophils 4, Platelet Estimate DecreasedL, Platelet Morphology Normal, Stomatocytes 1+, Reticulocyte Count 0.7 , Sodium Level 142, Potassium Level 4.1, Chloride Level 101, Carbon Dioxide Level 43*H, Blood Urea Nitrogen 29H, Creatinine 0.8, Estimat Glomerular Filtration Rate > 60, Glucose Level 181H, Calcium Level 8.6, Phosphorus Level 2.7, Magnesium Level 1.7L, Iron Level 110, Total Iron Binding Capacity 230L, Percent Iron Saturation 48, Unsaturated Iron Binding 120, Ferritin 90, Total Bilirubin 0.5, Aspartate Amino Transf (AST/SGOT) 41H, Alanine Aminotransferase ( ALT/SGPT) 85H, Alkaline Phosphatase 40L, Lactate Dehydrogenase 211, Total Protein 5.7L, Albumin 2.7L, Globulin 3.0, Albumin/Globulin Ratio 0.9L, Vitamin B12 Level 821, Folate 6.6L, Thyroid Stimulating Hormone (TSH) 1.425, HIV (1&2) Antibody Rapid Negative 12/27/17 13:15: Haptoglobin [Pending], Prothrombin Time 11.0, Prothromb Time International Ratio 1.1, Fibrinogen 175L, Hepatitis A IgM Antibody [Pending], Hepatitis B Surface Antigen [Pending], Hepatitis B Core IgM Antibody [Pending], Hepatitis C Antibody [Pending] Current Medications Medications (Trade) Dose Ordered Sig/Hansel Route PRN Reason Start Time Stop Time Status Last Admin Dose Admin Acetaminophen (Tylenol) 650 mg Q4H PRN ORAL T>100.5 12/26/17 15:31 01/19/18 15:30 Amlodipine Besylate (Norvasc) 5 mg DAILY ORAL 12/27/17 09:00 01/20/18 08:59 12/27/17 09:13 Chlorhexidine Gluconate (Jazzmine-Hex 2%) 1 applic DAILY@2000 TOPIC 12/26/17 20:00 01/20/18 19:59 Clonidine HCl (Catapres Tab) 0.1 mg Q4H PRN ORAL sbp more than 160mmHg 12/26/17 15:31 01/23/18 15:30 Dextrose (Dextrose 50%) 25 ml STAT PRN IV Blood Sugar btwn 60-69 mg/dL 12/26/17 15:33 01/25/18 15:32 12/26/17 21:55 Dextrose (Dextrose 50%) 50 ml STAT PRN IV BS less than 60mg/dl 12/26/17 15:34 01/25/18 15:33 Docusate Sodium (Colace) 100 mg THREE TIMES A DAY ORAL 12/26/17 18:00 01/22/18 09:59 12/27/17 09:12 Heparin Sodium (Porcine) (Heparin 5000 units/ml) 5,000 units EVERY 12 HOURS SUBQ 12/26/17 21:00 01/20/18 08:59 Insulin Aspart (NovoLOG) BEFORE MEALS AND HS SUBQ 12/26/17 16:30 01/22/18 20:59 12/27/17 14:14 Insulin Aspart (NovoLOG) 8 units NOVOTIAC SUBQ 12/26/17 16:50 01/23/18 11:49 12/27/17 14:14 Insulin Detemir (Levemir) 15 units EVERY 12 HOURS SUBQ 12/26/17 21:00 01/23/18 20:59 12/27/17 09:14 Ipratropium [place] (Atrovent) 500 mcg Q4H PRN HHN Shortness of Breath 12/26/17 15:50 12/31/17 15:49 Lorazepam (Ativan 2mg/ml 1ml) 0.5 mg Q4H PRN IV For Anxiety 12/26/17 15:51 12/27/17 15:50 Methylprednisolone Sodium Succinate (Solu-MEDROL) 60 mg DAILY IV 12/27/17 09:00 01/20/18 00:00 12/27/17 09:13 Mineral Oil (Fleet's Mineral Oil Enema) 133 ml EVERY OTHER DAY RECTAL 12/27/17 09:00 01/22/18 09:59 Morphine Sulfate (Morphine Sulfate) 2 mg Q4H PRN IVP Severe Pain (Pain Scale 7-10) 12/26/17 15:58 12/31/17 15:57 Nitroglycerin (Ntg) 0.4 mg Q5M X 3 DOSES PRN SL Prn Chest Pain 12/26/17 15:59 01/19/18 15:58 Ondansetron HCl (Zofran) 4 mg Q6H PRN IVP Nausea & Vomiting 12/26/17 16:00 01/19/18 15:59 Polyethylene Glycol (Miralax) 17 gm BEDTIME ORAL 12/26/17 21:00 01/22/18 20:59 Promethazine HCl/ Codeine (Phenergan with Codeine) 5 ml Q6H PRN ORAL cough 12/26/17 16:01 01/23/18 16:00 Risperidone (RisperDAL) 1 mg BID ORAL 12/26/17 18:00 01/20/18 13:14 12/27/17 09:13 Sennosides (Senokot) 1 tab DAILY ORAL 12/27/17 09:00 01/22/18 14:59 12/27/17 09:13 Temazepam (Restoril) 15 mg HSPRN PRN ORAL Insomnia 12/26/17 21:00 12/27/17 20:59 Vitamin A/Vitamin D (A & D Oint) 1 applic EVERY 12 HOURS TOPIC 12/26/17 21:00 01/20/18 22:59 12/27/17 09:14 Leni Watts MD Dec 27, 2017 15:30
[2017-12-27 16:00] VITALS: BP 127/78
--- NOTE | 2017-12-27 19:21 | Cardiology Progress Note ---
Assessment/Plan Assessment/Plan 1. Sinus tachycardia with premature atrial complexes. 2. Chronic obstructive pulmonary disease. 3. Diabetes mellitus. 4. Hypertension history tle sinu tachy now off tele i dcd beta agonist inhalers wathc hr if no wheezes will consider addition of bb if ok with dr hawkins Subjective Cardiovascular: Denies: chest pain, lightheadedness, palpitations Respiratory: Denies: shortness of breath Gastrointestinal/Abdominal: Denies: abdominal pain Genitourinary: Denies: burning Objective Last 24 Hour Vital Signs Date Time Temp Pulse Resp B/P (MAP) Pulse Ox O2 Delivery O2 Flow Rate FiO2 12/27/17 16:00 99.1 110 20 127/78 97 99.1 12/27/17 12:04 98.1 110 20 132/75 97 98.1 12/27/17 09:13 95 126/64 12/27/17 08:28 Nasal Cannula 3.0 12/27/17 08:27 94 Nasal Cannula 3.0 28 12/27/17 08:26 95 20 Nasal Cannula 3.0 28 12/27/17 08:00 97.5 113 20 126/64 95 97.5 12/27/17 04:35 98.2 104 20 117/80 97 Nasal Cannula 98.2 12/27/17 04:00 Nasal Cannula 2.0 12/27/17 00:45 98.1 93 20 137/78 98 Room Air 98.1 98 115 12/27/17 00:00 Nasal Cannula 2.0 12/26/17 20:05 116 20 Nasal Cannula 2.0 28 12/26/17 20:05 98 Nasal Cannula 2.0 28 12/26/17 20:05 Nasal Cannula 2.0 28 12/26/17 20:00 Nasal Cannula 2.0 12/26/17 19:32 98.2 121 20 135/90 97 Nasal Cannula 98.2 118 117 General Appearance: alert Neck: no JVD Cardiovascular: regular rhythm, tachycardia Respiratory/Chest: decreased breath sounds, crackles/rales Abdomen: normal bowel sounds, non tender, soft Extremities: no swelling Intake and Output 12/26/17 12/27/17 19:00 07:00 Intake Total 330 ml Output Total 850 ml Balance -520 ml Intake Oral 330 ml Output Urine Total 850 ml # Voids 1 # Bowel Movements 2 Laboratory Tests Test 12/27/17 04:56 12/27/17 13:15 White Blood Count 8.7 K/UL (4.8-10.8) # Red Blood Count 4.28 M/UL (4.20-5.40) Hemoglobin 11.4 G/DL (12.0-16.0) L Hematocrit 36.4 % (37.0-47.0) L Mean Corpuscular Volume 85 FL (80-99) Mean Corpuscular Hemoglobin 26.6 PG (27.0-31.0) L Mean Corpuscular Hemoglobin Concent 31.2 G/DL (32.0-36.0) L Red Cell Distribution Width 14.3 % (11.6-14.8) Platelet Count 115 K/UL (150-450) L Mean Platelet Volume 9.1 FL (6.5-10.1) Neutrophils (%) (Auto) % (45.0-75.0) Lymphocytes (%) (Auto) % (20.0-45.0) Monocytes (%) (Auto) % (1.0-10.0) Eosinophils (%) (Auto) % (0.0-3.0) Basophils (%) (Auto) % (0.0-2.0) Differential Total Cells Counted 100 Neutrophils % (Manual) 64 % (45-75) Lymphocytes % (Manual) 28 % (20-45) Monocytes % (Manual) 4 % (1-10) Eosinophils % (Manual) 0 % (0-3) Basophils % (Manual) 0 % (0-2) Band Neutrophils 4 % (0-8) Platelet Estimate Decreased L Platelet Morphology Normal Stomatocytes 1+ Reticulocyte Count 0.7 % (0.0-2.0) Sodium Level 142 MMOL/L (136-145) Potassium Level 4.1 MMOL/L (3.5-5.1) Chloride Level 101 MMOL/L (98-107) Carbon Dioxide Level 43 MMOL/L (21-32) *H Blood Urea Nitrogen 29 mg/dL (7-18) H Creatinine 0.8 MG/DL (0.55-1.30) Estimat Glomerular Filtration Rate > 60 mL/min (>60) Glucose Level 181 MG/DL (74-106) H Calcium Level 8.6 MG/DL (8.5-10.1) Phosphorus Level 2.7 MG/DL (2.5-4.9) Magnesium Level 1.7 MG/DL (1.8-2.4) L Iron Level 110 ug/dL (50-175) Total Iron Binding Capacity 230 ug/dL (250-450) L Percent Iron Saturation 48 % (15-50) Unsaturated Iron Binding 120 ug/dL (112-346) Ferritin 90 NG/ML (8-388) Total Bilirubin 0.5 MG/DL (0.2-1.0) Aspartate Amino Transf (AST/SGOT) 41 U/L (15-37) H Alanine Aminotransferase (ALT/SGPT) 85 U/L (12-78) H Alkaline Phosphatase 40 U/L (46-116) L Lactate Dehydrogenase 211 U/L (81-234) Total Protein 5.7 G/DL (6.4-8.2) L Albumin 2.7 G/DL (3.4-5.0) L Globulin 3.0 g/dL Albumin/Globulin Ratio 0.9 (1.0-2.7) L Vitamin B12 Level 821 PG/ML (193-986) Folate 6.6 NG/ML (8.6-58.9) L Thyroid Stimulating Hormone (TSH) 1.425 uiU/mL (0.358-3.740) HIV (1&2) Antibody Rapid Negative (NEGATIVE) Haptoglobin Pending Prothrombin Time 11.0 SEC (9.30-11.50) Prothromb Time International Ratio 1.1 (0.9-1.1) Fibrinogen 175 mg/dL (200-400) L Hepatitis A IgM Antibody Pending Hepatitis B Surface Antigen Pending Hepatitis B Core IgM Antibody Pending Hepatitis C Antibody Pending STEVO WAGNER Dec 27, 2017 19:21
--- NOTE | 2017-12-27 19:51 | Infectious Diseases Prog Note ---
Assessment/Plan Assessment/Plan Assessment: Acute hypoxic resp failure improved COPD exacerbation- -CXR: No acute disease Afebrile, no leukocytosis Recent acute hypoxic failure and PNA 11/2015 -sp cx 12/04: E.coli (davila S), P. mirabilis (davila S) Influenza sc : Neg transaminitis Hep panel : P hx of trach s/p removal COPD Hep C Dm2 HTN [facility] resident Plan: - Monitor pt off of AB Rx 12/24 SP Levaquin # 5 /5 for COPD exacerbation and monitor pt off of AB Rx -12/10 SP Cefepime #7 -12/06 SP Vanco #3 -Monitor CBC/BMP, temperatures -aspiration precautions Subjective Allergies: Coded Allergies: Shrimp (Unverified Allergy, Unknown, 12/04/17) Subjective Afebrile Objective Vital Signs Last 24 Hour Vital Signs Date Time Temp Pulse Resp B/P (MAP) Pulse Ox O2 Delivery O2 Flow Rate FiO2 12/27/17 16:00 99.1 110 20 127/78 97 99.1 12/27/17 12:04 98.1 110 20 132/75 97 98.1 12/27/17 09:13 95 126/64 12/27/17 08:28 Nasal Cannula 3.0 12/27/17 08:27 94 Nasal Cannula 3.0 28 12/27/17 08:26 95 20 Nasal Cannula 3.0 28 12/27/17 08:00 97.5 113 20 126/64 95 97.5 12/27/17 04:35 98.2 104 20 117/80 97 Nasal Cannula 98.2 12/27/17 04:00 Nasal Cannula 2.0 12/27/17 00:45 98.1 93 20 137/78 98 Room Air 98.1 98 115 12/27/17 00:00 Nasal Cannula 2.0 12/26/17 20:05 116 20 Nasal Cannula 2.0 28 12/26/17 20:05 98 Nasal Cannula 2.0 28 12/26/17 20:05 Nasal Cannula 2.0 28 12/26/17 20:00 Nasal Cannula 2.0 Height (Feet): 5 Height (Inches): 4.00 Weight (Pounds): 154 HEENT: mucous membranes moist Respiratory/Chest: no accessory muscle use Cardiovascular: no gallop/murmur Abdomen: no organomegaly Laboratory Tests Test 12/27/17 04:56 12/27/17 13:15 White Blood Count 8.7 K/UL (4.8-10.8) # Red Blood Count 4.28 M/UL (4.20-5.40) Hemoglobin 11.4 G/DL (12.0-16.0) L Hematocrit 36.4 % (37.0-47.0) L Mean Corpuscular Volume 85 FL (80-99) Mean Corpuscular Hemoglobin 26.6 PG (27.0-31.0) L Mean Corpuscular Hemoglobin Concent 31.2 G/DL (32.0-36.0) L Red Cell Distribution Width 14.3 % (11.6-14.8) Platelet Count 115 K/UL (150-450) L Mean Platelet Volume 9.1 FL (6.5-10.1) Neutrophils (%) (Auto) % (45.0-75.0) Lymphocytes (%) (Auto) % (20.0-45.0) Monocytes (%) (Auto) % (1.0-10.0) Eosinophils (%) (Auto) % (0.0-3.0) Basophils (%) (Auto) % (0.0-2.0) Differential Total Cells Counted 100 Neutrophils % (Manual) 64 % (45-75) Lymphocytes % (Manual) 28 % (20-45) Monocytes % (Manual) 4 % (1-10) Eosinophils % (Manual) 0 % (0-3) Basophils % (Manual) 0 % (0-2) Band Neutrophils 4 % (0-8) Platelet Estimate Decreased L Platelet Morphology Normal Stomatocytes 1+ Reticulocyte Count 0.7 % (0.0-2.0) Sodium Level 142 MMOL/L (136-145) Potassium Level 4.1 MMOL/L (3.5-5.1) Chloride Level 101 MMOL/L (98-107) Carbon Dioxide Level 43 MMOL/L (21-32) *H Blood Urea Nitrogen 29 mg/dL (7-18) H Creatinine 0.8 MG/DL (0.55-1.30) Estimat Glomerular Filtration Rate > 60 mL/min (>60) Glucose Level 181 MG/DL (74-106) H Calcium Level 8.6 MG/DL (8.5-10.1) Phosphorus Level 2.7 MG/DL (2.5-4.9) Magnesium Level 1.7 MG/DL (1.8-2.4) L Iron Level 110 ug/dL (50-175) Total Iron Binding Capacity 230 ug/dL (250-450) L Percent Iron Saturation 48 % (15-50) Unsaturated Iron Binding 120 ug/dL (112-346) Ferritin 90 NG/ML (8-388) Total Bilirubin 0.5 MG/DL (0.2-1.0) Aspartate Amino Transf (AST/SGOT) 41 U/L (15-37) H Alanine Aminotransferase (ALT/SGPT) 85 U/L (12-78) H Alkaline Phosphatase 40 U/L (46-116) L Lactate Dehydrogenase 211 U/L (81-234) Total Protein 5.7 G/DL (6.4-8.2) L Albumin 2.7 G/DL (3.4-5.0) L Globulin 3.0 g/dL Albumin/Globulin Ratio 0.9 (1.0-2.7) L Vitamin B12 Level 821 PG/ML (193-986) Folate 6.6 NG/ML (8.6-58.9) L Thyroid Stimulating Hormone (TSH) 1.425 uiU/mL (0.358-3.740) HIV (1&2) Antibody Rapid Negative (NEGATIVE) Haptoglobin Pending Prothrombin Time 11.0 SEC (9.30-11.50) Prothromb Time International Ratio 1.1 (0.9-1.1) Fibrinogen 175 mg/dL (200-400) L Hepatitis A IgM Antibody Pending Hepatitis B Surface Antigen Pending Hepatitis B Core IgM Antibody Pending Hepatitis C Antibody Pending Current Medications Medications (Trade) Dose Ordered Sig/Hansel Route PRN Reason Start Time Stop Time Status Last Admin Dose Admin Acetaminophen (Tylenol) 650 mg Q4H PRN ORAL T>100.5 12/26/17 15:31 01/19/18 15:30 Amlodipine Besylate (Norvasc) 5 mg DAILY ORAL 12/27/17 09:00 01/20/18 08:59 12/27/17 09:13 Chlorhexidine Gluconate (Jazzmine-Hex 2%) 1 applic DAILY@1999 TOPIC 12/26/17 20:00 01/20/18 19:59 Clonidine HCl (Catapres Tab) 0.1 mg Q4H PRN ORAL sbp more than 160mmHg 12/26/17 15:31 01/23/18 15:30 Dextrose (Dextrose 50%) 25 ml STAT PRN IV Blood Sugar btwn 60-69 mg/dL 12/26/17 15:33 01/25/18 15:32 12/26/17 21:55 Dextrose (Dextrose 50%) 50 ml STAT PRN IV BS less than 60mg/dl 12/26/17 15:34 01/25/18 15:33 Docusate Sodium (Colace) 100 mg THREE TIMES A DAY ORAL 12/26/17 18:00 01/22/18 09:59 12/27/17 17:19 Heparin Sodium (Porcine) (Heparin 5000 units/ml) 5,000 units EVERY 12 HOURS SUBQ 12/26/17 21:00 01/20/18 08:59 Insulin Aspart (NovoLOG) BEFORE MEALS AND HS SUBQ 12/26/17 16:30 01/22/18 20:59 12/27/17 17:24 Insulin Aspart (NovoLOG) 8 units NOVOTIAC SUBQ 12/26/17 16:50 01/23/18 11:49 12/27/17 17:23 Insulin Detemir (Levemir) 15 units EVERY 12 HOURS SUBQ 12/26/17 21:00 01/23/18 20:59 12/27/17 09:14 Ipratropium Aline (Atrovent) 500 mcg Q4H PRN HHN Shortness of Breath 12/26/17 15:50 12/31/17 15:49 Methylprednisolone Sodium Succinate (Solu-MEDROL) 60 mg DAILY IV 12/27/17 09:00 01/20/18 00:00 12/27/17 09:13 Mineral Oil (Fleet's Mineral Oil Enema) 133 ml EVERY OTHER DAY RECTAL 12/27/17 09:00 01/22/18 09:59 Morphine Sulfate (Morphine Sulfate) 2 mg Q4H PRN IVP Severe Pain (Pain Scale 7-10) 12/26/17 15:58 12/31/17 15:57 Nitroglycerin (Ntg) 0.4 mg Q5M X 3 DOSES PRN SL Prn Chest Pain 12/26/17 15:59 01/19/18 15:58 Ondansetron HCl (Zofran) 4 mg Q6H PRN IVP Nausea & Vomiting 12/26/17 16:00 01/19/18 15:59 Polyethylene Glycol (Miralax) 17 gm BEDTIME ORAL 12/26/17 21:00 01/22/18 20:59 Promethazine HCl/ Codeine (Phenergan with Codeine) 5 ml Q6H PRN ORAL cough 12/26/17 16:01 01/23/18 16:00 Risperidone (RisperDAL) 1 mg BID ORAL 12/26/17 18:00 01/20/18 13:14 12/27/17 17:19 Sennosides (Senokot) 1 tab DAILY ORAL 12/27/17 09:00 01/22/18 14:59 12/27/17 09:13 Temazepam (Restoril) 15 mg HSPRN PRN ORAL Insomnia 12/26/17 21:00 12/27/17 20:59 Vitamin A/Vitamin D (A & D Oint) 1 applic EVERY 12 HOURS TOPIC 12/26/17 21:00 01/20/18 22:59 12/27/17 09:14 Steve Griffin MD Dec 27, 2017 19:51
[2017-12-27 20:19] VITALS: BP 116/66
[2017-12-27] MEDS: Miralax 17gm pkt ORAL SCH (20:31)
[2017-12-27] MEDS: Dyna-Hex 2% Top Sol 2oz TOPIC SCH (20:31)
--- NOTE | 2017-12-27 22:56 | General Progress Note ---
Assessment/Plan Assessment/Plan encephalopathy psychosis due to [facility] rispedal ativan Subjective Date patient seen: Dec 27, 2017 Allergies: Coded Allergies: Shrimp (Unverified Allergy, Unknown, 12/04/17) Subjective the pt is calm no psychotic sxs. no agitation Objective Last 24 Hour Vital Signs Date Time Temp Pulse Resp B/P (MAP) Pulse Ox O2 Delivery O2 Flow Rate FiO2 12/27/17 20:19 98.1 115 20 116/66 100 98.1 12/27/17 19:30 Nasal Cannula 2.0 28 12/27/17 19:30 95 Nasal Cannula 2.0 28 12/27/17 19:30 102 20 Nasal Cannula 2.0 28 12/27/17 16:00 99.1 110 20 127/78 97 99.1 12/27/17 12:04 98.1 110 20 132/75 97 98.1 12/27/17 09:13 95 126/64 12/27/17 08:28 Nasal Cannula 3.0 12/27/17 08:27 94 Nasal Cannula 3.0 28 12/27/17 08:26 95 20 Nasal Cannula 3.0 28 12/27/17 08:00 97.5 113 20 126/64 95 97.5 12/27/17 04:35 98.2 104 20 117/80 97 Nasal Cannula 98.2 12/27/17 04:00 Nasal Cannula 2.0 12/27/17 00:45 98.1 93 20 137/78 98 Room Air 98.1 98 115 12/27/17 00:00 Nasal Cannula 2.0 Intake and Output 12/26/17 12/27/17 19:00 07:00 Intake Total 330 ml Output Total 850 ml Balance -520 ml Intake Oral 330 ml Output Urine Total 850 ml # Voids 1 # Bowel Movements 2 Laboratory Tests 12/27/17 04:56: White Blood Count 8.7#, Red Blood Count 4.28, Hemoglobin 11.4L, Hematocrit 36.4L , Mean Corpuscular Volume 85, Mean Corpuscular Hemoglobin 26.6L, Mean Corpuscular Hemoglobin Concent 31.2L, Red Cell Distribution Width 14.3, Platelet Count 115L, Mean Platelet Volume 9.1, Neutrophils (%) (Auto) , Lymphocytes (%) (Auto) , Monocytes (%) (Auto) , Eosinophils (%) (Auto) , Basophils (%) (Auto) , Differential Total Cells Counted 100, Neutrophils % ( Manual) 64, Lymphocytes % (Manual) 28, Monocytes % (Manual) 4, Eosinophils % ( Manual) 0, Basophils % (Manual) 0, Band Neutrophils 4, Platelet Estimate DecreasedL, Platelet Morphology Normal, Stomatocytes 1+, Reticulocyte Count 0.7 , Sodium Level 142, Potassium Level 4.1, Chloride Level 101, Carbon Dioxide Level 43*H, Blood Urea Nitrogen 29H, Creatinine 0.8, Estimat Glomerular Filtration Rate > 60, Glucose Level 181H, Calcium Level 8.6, Phosphorus Level 2.7, Magnesium Level 1.7L, Iron Level 110, Total Iron Binding Capacity 230L, Percent Iron Saturation 48, Unsaturated Iron Binding 120, Ferritin 90, Total Bilirubin 0.5, Aspartate Amino Transf (AST/SGOT) 41H, Alanine Aminotransferase ( ALT/SGPT) 85H, Alkaline Phosphatase 40L, Lactate Dehydrogenase 211, Total Protein 5.7L, Albumin 2.7L, Globulin 3.0, Albumin/Globulin Ratio 0.9L, Vitamin B12 Level 821, Folate 6.6L, Thyroid Stimulating Hormone (TSH) 1.425, HIV (1&2) Antibody Rapid Negative 12/27/17 13:15: Haptoglobin [Pending], Prothrombin Time 11.0, Prothromb Time International Ratio 1.1, Fibrinogen 175L, Hepatitis A IgM Antibody [Pending], Hepatitis B Surface Antigen [Pending], Hepatitis B Core IgM Antibody [Pending], Hepatitis C Antibody [Pending] Height (Feet): 5 Height (Inches): 4.00 Weight (Pounds): 154 Grisel Jay M.D. Dec 27, 2017 22:56
[2017-12-28] VITALS (8 sets, daily range): BP systolic 111–138; BP diastolic 69–85
--- NOTE | 2017-12-28 00:15 | Consultation ---
DATE OF CONSULTATION: 12/27/2017 HEMATOLOGY/ONCOLOGY CONSULTATION CONSULTING PHYSICIAN: Anuj Alfaro M.D. REQUESTING PHYSICIAN: Leni Watts M.D. REASON FOR CONSULTATION: Evaluation of anemia and thrombocytopenia. IDENTIFYING DATA: Dear Dr. Watts: Thank you for the courtesy of this consultation. The patient is a pleasant 67-year-old female with past medical history significant for multidrug use including cocaine smoking, but currently not using any, initially admitted to the hospital about a week ago, at this time presents to the hospital because of hypoxemia secondary to COPD exacerbation, has been treated for, and noted to have some tachycardia, has been seen by Cardiology service, was noted to be in CHF, cardiac enzymes pending, currently showing sinus tachycardia. Beta-agonist inhalers have been discontinued, however, the patient was noticed to have developed thrombocytopenia that she has had since November. Hematology service consulted for further evaluation and treatment. She has never had any abdominal imaging done before neither has she had any serology performed such as hepatitis panel and HIV with prior hemoglobin in the past year within normal limits and with an acute change from her prior state. PAST MEDICAL HISTORY: Hypertension. No hepatitis. No cancer. No stroke. No asthma. No emphysema. No . ALLERGIES: No known drug allergies. SOCIAL HISTORY: Smoking history, cocaine use in the past. No illicit drug use currently. No alcohol. REVIEW OF SYSTEMS: CONSTITUTIONAL: No fevers, chills, or night sweats. SKIN: No rashes, bumps, or itching. HEENT: No headache, hearing or vision changes. BREASTS: No lumps, pain, or discharge. PULMONARY: No cough, sputum, or shortness of breath. GASTROINTESTINAL: No nausea, vomiting, or diarrhea. GENITOURINARY: No dysuria, frequency, or urgency. MUSCULOSKELETAL: No joint swelling, muscle pain, or trauma. PHYSICAL EXAMINATION: VITAL SIGNS: Reviewed. GENERAL: No distress. PULMONARY: Decreased breath sounds. CARDIOVASCULAR: Regular rate. No S3 or S4. ABDOMEN: Soft, nontender, and nondistended. EXTREMITIES: No cyanosis, swelling, or edema noted. LABORATORY AND DIAGNOSTIC DATA: WBC 8.7, hemoglobin 11.1, hematocrit 36, platelet count 114,000. BUN 29, creatinine 0.8. AST 41, ALT 85. Total protein 5.7. Imaging, 2D echo reviewed. ASSESSMENT AND RECOMMENDATIONS: 1. Thrombocytopenia, cause is yet unknown, potentially secondary to underlying infection, however, the patient has had thrombocytopenia since at least November 2017, potentially related to medications, which will be reviewed. Thrombocytopenia appears to be chronic, actually secondary to hepatitis C. 2. Leukopenia, likely secondary to hepatitis C, currently improved. No leukocytosis is noted. The patient has been afebrile. 3. Anemia due to underlying chronic disease . Continue to closely monitor. Obtain anemia workup. 4. Acute on hypoxic respiratory failure, status post tracheostomy, improved. 5. Hepatitis C. Management as an outpatient. Appreciate Infectious Disease service evaluation. 6. Hypertension. Systolic blood pressure goal less than 140. I appreciate the consultation. Anuj Alfaro M.D. DR: Jalen JOB#: [id number] CC:
[2017-12-28] MEDS: NovoLOG Insulin Flexpen SUBQ SCH ×7 (06:07→20:20)
[2017-12-28] MEDS: Heparin 5000 units/ml inj SUBQ SCH ×2 (09:00→20:18)
[2017-12-28] MEDS: Docusate 100mg cap ORAL SCH ×3 (09:03→17:25)
[2017-12-28] MEDS: Sennosides 8.6mg ORAL SCH (09:03)
[2017-12-28] MEDS: Solu-MEDROL 125mg Inj IV SCH (09:04)
[2017-12-28] MEDS: Levemir Flexpen SUBQ SCH ×2 (09:06→20:19)
[2017-12-28] MEDS: Vitamin A&D Oint 2oz Tube TOPIC SCH ×2 (09:20→20:31)
--- NOTE | 2017-12-28 11:59 | Infectious Diseases Prog Note ---
Assessment/Plan Assessment/Plan Assessment: Acute hypoxic resp failure improved COPD exacerbation- -CXR: No acute disease Afebrile, no leukocytosis Recent acute hypoxic failure and PNA 11/2015 -sp cx 12/04: E.coli (davila S), P. mirabilis (davila S) Influenza sc : Neg transaminitis Hx of Hep C Hep panel : P HIV Neg hx of trach s/p removal COPD Dm2 HTN NH resident Plan: - Monitor pt off of AB Rx 12/24 SP Levaquin # 5 /5 for COPD exacerbation and monitor pt off of AB Rx -12/10 SP Cefepime #7 -12/06 SP Vanco #3 -Monitor CBC/BMP, temperatures -aspiration precautions Henm fup, re TCP Subjective Allergies: Coded Allergies: Shrimp (Unverified Allergy, Unknown, 12/04/17) Subjective Afebrile Objective Vital Signs Last 24 Hour Vital Signs Date Time Temp Pulse Resp B/P (MAP) Pulse Ox O2 Delivery O2 Flow Rate FiO2 12/28/17 11:34 97.7 102 18 119/73 98 97.7 12/28/17 09:03 101 120/72 12/28/17 08:07 98.1 101 18 120/72 97 98.1 12/28/17 08:00 98.0 100 20 120/72 100 98.0 12/28/17 04:37 97.2 90 20 120/85 100 97.2 12/28/17 04:37 100 Nasal Cannula 2.0 12/28/17 00:09 100 Nasal Cannula 2.0 12/28/17 00:09 97.7 95 20 133/73 100 97.7 12/27/17 20:19 100 Nasal Cannula 2.0 12/27/17 20:19 98.1 115 20 116/66 100 98.1 12/27/17 19:30 Nasal Cannula 2.0 28 12/27/17 19:30 95 Nasal Cannula 2.0 28 12/27/17 19:30 102 20 Nasal Cannula 2.0 28 12/27/17 16:00 99.1 110 20 127/78 97 99.1 12/27/17 12:04 98.1 110 20 132/75 97 98.1 Height (Feet): 5 Height (Inches): 4.00 Weight (Pounds): 149 HEENT: anicteric Respiratory/Chest: no respiratory distress Cardiovascular: regular rhythm Abdomen: soft, non tender Laboratory Tests Test 12/27/17 13:15 12/28/17 06:00 Haptoglobin Pending Prothrombin Time 11.0 SEC (9.30-11.50) Prothromb Time International Ratio 1.1 (0.9-1.1) Fibrinogen 175 mg/dL (200-400) L Hepatitis A IgM Antibody Pending Hepatitis B Surface Antigen Pending Hepatitis B Core IgM Antibody Pending Hepatitis C Antibody Pending Stool Occult Blood Negative (NEGATIVE) Current Medications Medications (Trade) Dose Ordered Sig/Hansel Route PRN Reason Start Time Stop Time Status Last Admin Dose Admin Acetaminophen (Tylenol) 650 mg Q4H PRN ORAL T>100.5 12/26/17 15:31 01/19/18 15:30 Amlodipine Besylate (Norvasc) 5 mg DAILY ORAL 12/27/17 09:00 01/20/18 08:59 12/28/17 09:03 Chlorhexidine Gluconate (Jazzmine-Hex 2%) 1 applic DAILY@1999 TOPIC 12/26/17 20:00 01/20/18 19:59 12/27/17 20:31 Clonidine HCl (Catapres Tab) 0.1 mg Q4H PRN ORAL sbp more than 160mmHg 12/26/17 15:31 01/23/18 15:30 Dextrose (Dextrose 50%) 25 ml STAT PRN IV Blood Sugar btwn 60-69 mg/dL 12/26/17 15:33 01/25/18 15:32 12/26/17 21:55 Dextrose (Dextrose 50%) 50 ml STAT PRN IV BS less than 60mg/dl 12/26/17 15:34 01/25/18 15:33 Docusate Sodium (Colace) 100 mg THREE TIMES A DAY ORAL 12/26/17 18:00 01/22/18 09:59 12/28/17 09:03 Heparin Sodium (Porcine) (Heparin 5000 units/ml) 5,000 units EVERY 12 HOURS SUBQ 12/26/17 21:00 01/20/18 08:59 Insulin Aspart (NovoLOG) BEFORE MEALS AND HS SUBQ 12/26/17 16:30 01/22/18 20:59 12/27/17 20:34 Insulin Aspart (NovoLOG) 8 units NOVOTIAC SUBQ 12/26/17 16:50 01/23/18 11:49 12/27/17 17:23 Insulin Detemir (Levemir) 15 units EVERY 12 HOURS SUBQ 12/26/17 21:00 01/23/18 20:59 12/28/17 09:06 Ipratropium [place] (Atrovent) 500 mcg Q4H PRN HHN Shortness of Breath 12/26/17 15:50 12/31/17 15:49 Methylprednisolone Sodium Succinate (Solu-MEDROL) 60 mg DAILY IV 12/27/17 09:00 01/20/18 00:00 12/28/17 09:04 Mineral Oil (Fleet's Mineral Oil Enema) 133 ml EVERY OTHER DAY RECTAL 12/27/17 09:00 01/22/18 09:59 Morphine Sulfate (Morphine Sulfate) 2 mg Q4H PRN IVP Severe Pain (Pain Scale 7-10) 12/26/17 15:58 12/31/17 15:57 Nitroglycerin (Ntg) 0.4 mg Q5M X 3 DOSES PRN SL Prn Chest Pain 12/26/17 15:59 01/19/18 15:58 Ondansetron HCl (Zofran) 4 mg Q6H PRN IVP Nausea & Vomiting 12/26/17 16:00 01/19/18 15:59 Polyethylene Glycol (Miralax) 17 gm BEDTIME ORAL 12/26/17 21:00 01/22/18 20:59 Promethazine HCl/ Codeine (Phenergan with Codeine) 5 ml Q6H PRN ORAL cough 12/26/17 16:01 01/23/18 16:00 Risperidone (RisperDAL) 1 mg BID ORAL 12/26/17 18:00 01/20/18 13:14 12/28/17 09:03 Sennosides (Senokot) 1 tab DAILY ORAL 12/27/17 09:00 01/22/18 14:59 12/28/17 09:03 Vitamin A/Vitamin D (A & D Oint) 1 applic EVERY 12 HOURS TOPIC 12/26/17 21:00 01/20/18 22:59 12/28/17 09:20 Steve Griffin MD Dec 28, 2017 11:59
--- NOTE | 2017-12-28 13:11 | General Progress Note ---
Assessment/Plan Assessment/Plan encephalopathy psychosis due [place] [facility] [place] Subjective Date patient seen: Dec 28, 2017 Neurologic/Psychiatric: Reports: anxiety, depressed Allergies: Coded Allergies: Shrimp (Unverified Allergy, Unknown, 12/04/17) Subjective the pt is calm no psychotic sxs. no agitation Objective Last 24 Hour Vital Signs Date Time Temp Pulse Resp B/P (MAP) Pulse Ox O2 Delivery O2 Flow Rate FiO2 12/28/17 11:34 97.7 102 18 119/73 98 97.7 12/28/17 09:03 101 120/72 12/28/17 08:07 98.1 101 18 120/72 97 98.1 12/28/17 08:00 98.0 100 20 120/72 100 98.0 12/28/17 04:37 97.2 90 20 120/85 100 97.2 12/28/17 04:37 100 Nasal Cannula 2.0 12/28/17 00:09 100 Nasal Cannula 2.0 12/28/17 00:09 97.7 95 20 133/73 100 97.7 12/27/17 20:19 100 Nasal Cannula 2.0 12/27/17 20:19 98.1 115 20 116/66 100 98.1 12/27/17 19:30 Nasal Cannula 2.0 28 12/27/17 19:30 95 Nasal Cannula 2.0 28 12/27/17 19:30 102 20 Nasal Cannula 2.0 28 12/27/17 16:00 99.1 110 20 127/78 97 99.1 Intake and Output 12/27/17 12/28/17 19:00 07:00 Intake Total 90 ml 180 ml Balance 90 ml 180 ml Intake Oral 90 ml 180 ml # Voids 6 # Bowel Movements 1 Laboratory Tests 12/27/17 13:15: Haptoglobin [Pending], Prothrombin Time 11.0, Prothromb Time International Ratio 1.1, Fibrinogen 175L, Hepatitis A IgM Antibody [Pending], Hepatitis B Surface Antigen [Pending], Hepatitis B Core IgM Antibody [Pending], Hepatitis C Antibody [Pending] 12/28/17 06:00: Stool Occult Blood Negative Height (Feet): 5 Height (Inches): 4.00 Weight (Pounds): 149 Grisel Jay M.D. Dec 28, 2017 13:11
--- NOTE | 2017-12-28 19:06 | Pulmonology Progress Note ---
Assessment/Plan Problems: (1) Acute and chronic respiratory failure (2) COPD (chronic obstructive pulmonary disease) (3) Hepatitis C Assessment/Plan improving no new complains respiratory treatment check cultures dc to nursign home when bed available Subjective ROS Limited/Unobtainable: No Constitutional: Reports: no symptoms HEENT: Repors: no symptoms Respiratory: Reports: no symptoms Allergies: Coded Allergies: Shrimp (Unverified Allergy, Unknown, 12/04/17) Objective Last 24 Hour Vital Signs Date Time Temp Pulse Resp B/P (MAP) Pulse Ox O2 Delivery O2 Flow Rate FiO2 12/28/17 15:39 97.9 112 18 138/85 98 97.9 12/28/17 11:34 97.7 102 18 119/73 98 97.7 12/28/17 09:03 101 120/72 12/28/17 08:07 98.1 101 18 120/72 97 98.1 12/28/17 08:00 98.0 100 20 120/72 100 98.0 12/28/17 04:37 97.2 90 20 120/85 100 97.2 12/28/17 04:37 100 Nasal Cannula 2.0 12/28/17 00:09 100 Nasal Cannula 2.0 12/28/17 00:09 97.7 95 20 133/73 100 97.7 12/27/17 20:19 100 Nasal Cannula 2.0 12/27/17 20:19 98.1 115 20 116/66 100 98.1 12/27/17 19:30 Nasal Cannula 2.0 28 12/27/17 19:30 95 Nasal Cannula 2.0 28 12/27/17 19:30 102 20 Nasal Cannula 2.0 28 Intake and Output 12/27/17 12/28/17 19:00 07:00 Intake Total 90 ml 180 ml Balance 90 ml 180 ml Intake Oral 90 ml 180 ml # Voids 6 # Bowel Movements 1 Objective General Appearance: cachetic HEENT: normocephalic Respiratory/Chest: chest wall non-tender, lungs clear Breasts: no masses Cardiovascular: normal peripheral pulses, normal rate Abdomen: normal bowel sounds, soft, non tender Extremities: no cyanosis, no clubbing Neurologic/Psychiatric: carpet cutter II-XII grossly normal, no motor/sensory deficits Lymphatic: no neck adenopathy Laboratory Tests 12/28/17 06:00: Stool Occult Blood Negative Current Medications Medications (Trade) Dose Ordered Sig/Hansel Route PRN Reason Start Time Stop Time Status Last Admin Dose Admin Acetaminophen (Tylenol) 650 mg Q4H PRN ORAL T>100.5 12/26/17 15:31 01/19/18 15:30 Amlodipine Besylate (Norvasc) 5 mg DAILY ORAL 12/27/17 09:00 01/20/18 08:59 12/28/17 09:03 Chlorhexidine Gluconate (Jazzmine-Hex 2%) 1 applic DAILY@1999 TOPIC 12/26/17 20:00 01/20/18 19:59 12/27/17 20:31 Clonidine HCl (Catapres Tab) 0.1 mg Q4H PRN ORAL sbp more than 160mmHg 12/26/17 15:31 01/23/18 15:30 Dextrose (Dextrose 50%) 25 ml STAT PRN IV Blood Sugar btwn 60-69 mg/dL 12/26/17 15:33 01/25/18 15:32 12/26/17 21:55 Dextrose (Dextrose 50%) 50 ml STAT PRN IV BS less than 60mg/dl 12/26/17 15:34 01/25/18 15:33 Docusate Sodium (Colace) 100 mg THREE TIMES A DAY ORAL 12/26/17 18:00 01/22/18 09:59 12/28/17 17:25 Heparin Sodium (Porcine) (Heparin 5000 units/ml) 5,000 units EVERY 12 HOURS SUBQ 12/26/17 21:00 01/20/18 08:59 Insulin Aspart (NovoLOG) BEFORE MEALS AND HS SUBQ 12/26/17 16:30 01/22/18 20:59 12/28/17 17:26 Insulin Aspart (NovoLOG) 8 units NOVOTIAC SUBQ 12/26/17 16:50 01/23/18 11:49 12/28/17 17:29 Insulin Detemir (Levemir) 15 units EVERY 12 HOURS SUBQ 12/26/17 21:00 01/23/18 20:59 12/28/17 09:06 Ipratropium [place] (Atrovent) 500 mcg Q4H PRN HHN Shortness of Breath 12/26/17 15:50 12/31/17 15:49 Methylprednisolone Sodium Succinate (Solu-MEDROL) 60 mg DAILY IV 12/27/17 09:00 01/20/18 00:00 12/28/17 09:04 Mineral Oil (Fleet's Mineral Oil Enema) 133 ml EVERY OTHER DAY RECTAL 12/27/17 09:00 01/22/18 09:59 Morphine Sulfate (Morphine Sulfate) 2 mg Q4H PRN IVP Severe Pain (Pain Scale 7-10) 12/26/17 15:58 12/31/17 15:57 Nitroglycerin (Ntg) 0.4 mg Q5M X 3 DOSES PRN SL Prn Chest Pain 12/26/17 15:59 01/19/18 15:58 Ondansetron HCl (Zofran) 4 mg Q6H PRN IVP Nausea & Vomiting 12/26/17 16:00 01/19/18 15:59 Polyethylene Glycol (Miralax) 17 gm BEDTIME ORAL 12/26/17 21:00 01/22/18 20:59 Promethazine HCl/ Codeine (Phenergan with Codeine) 5 ml Q6H PRN ORAL cough 12/26/17 16:01 01/23/18 16:00 Risperidone (RisperDAL) 1 mg BID ORAL 12/26/17 18:00 01/20/18 13:14 12/28/17 17:25 Sennosides (Senokot) 1 tab DAILY ORAL 12/27/17 09:00 01/22/18 14:59 12/28/17 09:03 Vitamin A/Vitamin D (A & D Oint) 1 applic EVERY 12 HOURS TOPIC 12/26/17 21:00 01/20/18 22:59 12/28/17 09:20 Leni Watts MD Dec 28, 2017 19:06
--- NOTE | 2017-12-28 19:39 | Cardiology Progress Note ---
Assessment/Plan Assessment/Plan 1. Sinus tachycardia with premature atrial complexes. 2. Chronic obstructive pulmonary disease. 3. Diabetes mellitus. 4. Hypertension history tle sinu tachy now off tele i dcd beta agonist inhalers hr seem ok Subjective Cardiovascular: Reports: no symptoms Objective Last 24 Hour Vital Signs Date Time Temp Pulse Resp B/P (MAP) Pulse Ox O2 Delivery O2 Flow Rate FiO2 12/28/17 15:39 97.9 112 18 138/85 98 97.9 12/28/17 11:34 97.7 102 18 119/73 98 97.7 12/28/17 09:03 101 120/72 12/28/17 08:07 98.1 101 18 120/72 97 98.1 12/28/17 08:00 98.0 100 20 120/72 100 98.0 12/28/17 04:37 97.2 90 20 120/85 100 97.2 12/28/17 04:37 100 Nasal Cannula 2.0 12/28/17 00:09 100 Nasal Cannula 2.0 12/28/17 00:09 97.7 95 20 133/73 100 97.7 12/27/17 20:19 100 Nasal Cannula 2.0 12/27/17 20:19 98.1 115 20 116/66 100 98.1 General Appearance: no apparent distress Intake and Output 12/27/17 12/28/17 19:00 07:00 Intake Total 90 ml 180 ml Balance 90 ml 180 ml Intake Oral 90 ml 180 ml # Voids 6 # Bowel Movements 1 Laboratory Tests Test 12/28/17 06:00 Stool Occult Blood Negative (NEGATIVE) STEVO WAGNER Dec 28, 2017 19:39
[2017-12-28] MEDS: Dyna-Hex 2% Top Sol 2oz TOPIC SCH (20:17)
[2017-12-28] MEDS: Miralax 17gm pkt ORAL SCH (20:17)
--- NOTE | 2017-12-28 20:50 | Wound Care Consultation ---
Wound Assessment Wound Assessment : Wound Present on Admission: Yes New Wound: No Status Change of Wound: No Wound Location Body Site Modif: mid Wound Location Body Site: sacral Wound Type: pressure ulcer Nery Test: Does not Nery Pressure Ulcer Stage: II Wound Thickness: Partial Thickness Wound Length: 1.5 Wound Width: 2.0 Percent of Wound [place]/Red: 100 Wound Drainage Amount: None Wound Drainage Odor: None/Absent Tissue Surrounding Wound: scar tissue Wound General Appearance: Reddened Wound Comment #1 Sacral area stage II pressure ulcer. Noted with pink scar tissue. Good progress noted #2 Dryness on left and right toes Recommendation -Local wound care per protocol -Offload both heels -Heel protector on both heels -Apply A&D oint on left and right toe -Optimize nutrition -Keep clean and dry -Turn and reposition -Low air loss mattress -Assess and f/u accordingly for any changes LAKSHMI LEAVITT RN Dec 28, 2017 20:50
--- NOTE | 2017-12-28 23:13 | General Progress Note ---
Assessment/Plan Assessment/Plan 1. Thrombocytopenia, secondary to hepatitis C --> Hep A and C antibody test (+) --> Monitor for improvement. Transfuse if platelets <20k 2. Leukopenia, likely secondary to hepatitis C, currently improved. --> No leukocytosis is noted. The patient has been afebrile. --> Resolved at this time. 3. Anemia due to underlying chronic disease. --> Continue to closely monitor. --> Reviewed anemia workup. Iron 110, TIBC 230, Ferritin 90, B12 821, Folate 6.6 , TSH 1.4 4. Acute on hypoxic respiratory failure, status post tracheostomy, improved. 5. Hepatitis C. Management as an outpatient. --> Appreciate Infectious Disease service evaluation. 6. Hypertension. Systolic blood pressure goal less than 140. --> Improved. 7. COPD. DC Planning. Subjective Date patient seen: Dec 28, 2017 Constitutional: Denies: no symptoms, chills, diaphoresis, fever, malaise, weakness, other HEENT: Denies: no symptoms, eye pain, blurred vision, tearing, double vision, ear pain, ear discharge, nose pain, nose congestion, throat pain, throat swelling, mouth pain, mouth swelling, other Cardiovascular: Denies: no symptoms, chest pain, edema, irregular heart rate, lightheadedness, palpitations, syncope, other Respiratory: Denies: no symptoms, cough, orthopnea, shortness of breath, SOB with excertion, SOB at rest, sputum, stridor, wheezing, other Gastrointestinal/Abdominal: Denies: no symptoms, abdomen distended, abdominal pain, black stools, tarry stools, blood in stool, constipated, diarrhea, difficulty swallowing, nausea, poor appetite, poor fluid intake, rectal bleeding , vomiting, other Genitourinary: Denies: no symptoms, burning, discharge, frequency, flank pain, hematuria, incontinence, pain, urgency, other Neurologic/Psychiatric: Denies: no symptoms, anxiety, depressed, emotional problems, headache, numbness, paresthesia, pre-existing deficit, seizure, tingling, tremors, weakness, other Endocrine: Denies: no symptoms, excessive sweating, flushing, intolerance to cold, intolerance to heat, increased hunger, increased thirst, increased urine, unexplained weight gain, unexplained weight loss, other Hematologic/Lymphatic: Reports: anemia Allergies: Coded Allergies: Shrimp (Unverified Allergy, Unknown, 12/04/17) Subjective H/H stable. No hematochezia. Hep A and C ab ++. Objective Last 24 Hour Vital Signs Date Time Temp Pulse Resp B/P (MAP) Pulse Ox O2 Delivery O2 Flow Rate FiO2 12/28/17 19:48 97.9 89 20 136/69 100 Room Air 97.9 12/28/17 15:39 97.9 112 18 138/85 98 97.9 12/28/17 11:34 97.7 102 18 119/73 98 97.7 12/28/17 09:03 101 120/72 12/28/17 08:07 98.1 101 18 120/72 97 98.1 12/28/17 08:00 98.0 100 20 120/72 100 98.0 12/28/17 04:37 97.2 90 20 120/85 100 97.2 12/28/17 04:37 100 Nasal Cannula 2.0 12/28/17 00:09 100 Nasal Cannula 2.0 12/28/17 00:09 97.7 95 20 133/73 100 97.7 Intake and Output 12/27/17 12/28/17 19:00 07:00 Intake Total 90 ml 180 ml Balance 90 ml 180 ml Intake Oral 90 ml 180 ml # Voids 6 # Bowel Movements 1 Laboratory Tests 12/28/17 06:00: Stool Occult Blood Negative Height (Feet): 5 Height (Inches): 4.00 Weight (Pounds): 149 General Appearance: no apparent distress Respiratory/Chest: decreased breath sounds Anuj Alfaro MD Dec 28, 2017 23:13
[2017-12-29 04:03] VITALS: BP 133/81
[2017-12-29] MEDS: NovoLOG Insulin Flexpen SUBQ SCH ×7 (05:54→21:32)
[2017-12-29 08:00] VITALS: BP 100/65
[2017-12-29] MEDS: Solu-MEDROL 125mg Inj IV SCH (08:11)
[2017-12-29] MEDS: Docusate 100mg cap ORAL SCH ×3 (08:12→17:20)
[2017-12-29] MEDS: Fleet's Mineral Oil Enema RECTAL SCH (08:12)
[2017-12-29] MEDS: Sennosides 8.6mg ORAL SCH (08:12)
[2017-12-29] MEDS: Levemir Flexpen SUBQ SCH ×2 (08:15→21:33)
[2017-12-29] MEDS: Heparin 5000 units/ml inj SUBQ SCH ×2 (08:16→21:00)
[2017-12-29] MEDS: Vitamin A&D Oint 2oz Tube TOPIC SCH ×2 (08:16→21:33)
[2017-12-29 12:00] VITALS: BP 127/71
--- NOTE | 2017-12-29 15:00 | Pulmonology Progress Note ---
Assessment/Plan Problems: (1) Acute and chronic respiratory failure (2) COPD (chronic obstructive pulmonary disease) (3) Hepatitis C Assessment/Plan improving slightly short of breath, which is her underlying condition no new complains respiratory treatment check cultures dc planning in progress Subjective ROS Limited/Unobtainable: No Allergies: Coded Allergies: Shrimp (Unverified Allergy, Unknown, 12/04/17) Objective Last 24 Hour Vital Signs Date Time Temp Pulse Resp B/P (MAP) Pulse Ox O2 Delivery O2 Flow Rate FiO2 12/29/17 12:00 98.1 100 18 127/71 98 98.1 12/29/17 08:28 Nasal Cannula 3.0 12/29/17 08:26 97 Nasal Cannula 2.0 28 12/29/17 08:25 73 22 Nasal Cannula 2.0 28 12/29/17 08:12 100 133/81 12/29/17 08:00 97.9 98 20 100/65 100 97.9 12/29/17 04:03 97.0 100 20 133/81 100 Room Air 97.0 12/28/17 23:58 85 20 Nasal Cannula 2.0 28 12/28/17 23:58 97 Nasal Cannula 2.0 28 12/28/17 23:58 Nasal Cannula 2.0 28 12/28/17 23:50 97.7 78 20 111/75 100 Room Air 97.7 12/28/17 19:48 97.9 89 20 136/69 100 Room Air 97.9 12/28/17 15:39 97.9 112 18 138/85 98 97.9 Intake and Output 12/28/17 12/29/17 19:00 07:00 Intake Total 540 ml Balance 540 ml Intake Oral 540 ml # Voids 3 4 # Bowel Movements 1 2 Objective General Appearance: cachetic HEENT: normocephalic Respiratory/Chest: chest wall non-tender, lungs clear Breasts: no masses Cardiovascular: normal peripheral pulses, normal rate Abdomen: normal bowel sounds, soft, non tender Extremities: no cyanosis, no clubbing 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 grossly normal, no motor/sensory deficits Lymphatic: no neck adenopathy Current Medications Medications (Trade) Dose Ordered Sig/Hansel Route PRN Reason Start Time Stop Time Status Last Admin Dose Admin Acetaminophen (Tylenol) 650 mg Q4H PRN ORAL T>100.5 12/26/17 15:31 5/5/18 15:30 Amlodipine Besylate (Norvasc) 5 mg DAILY ORAL 12/27/17 09:00 01/20/18 08:59 12/29/17 08:12 Chlorhexidine Gluconate (Jazzmine-Hex 2%) 1 applic DAILY@2000 TOPIC 12/26/17 20:00 01/20/18 19:59 12/28/17 20:17 Clonidine HCl (Catapres Tab) 0.1 mg Q4H PRN ORAL sbp more than 160mmHg 12/26/17 15:31 01/23/18 15:30 Dextrose (Dextrose 50%) 25 ml STAT PRN IV Blood Sugar btwn 60-69 mg/dL 12/26/17 15:33 01/25/18 15:32 12/26/17 21:55 Dextrose (Dextrose 50%) 50 ml STAT PRN IV BS less than 60mg/dl 12/26/17 15:34 01/25/18 15:33 Docusate Sodium (Colace) 100 mg THREE TIMES A DAY ORAL 12/26/17 18:00 01/22/18 09:59 12/28/17 17:25 Heparin Sodium (Porcine) (Heparin 5000 units/ml) 5,000 units EVERY 12 HOURS SUBQ 12/26/17 21:00 01/20/18 08:59 Insulin Aspart (NovoLOG) BEFORE MEALS AND HS SUBQ 12/26/17 16:30 01/22/18 20:59 12/29/17 11:36 Insulin Aspart (NovoLOG) 8 units NOVOTIAC SUBQ 12/26/17 16:50 01/23/18 11:49 12/29/17 11:37 Insulin Detemir (Levemir) 15 units EVERY 12 HOURS SUBQ 12/26/17 21:00 01/23/18 20:59 12/29/17 08:15 Ipratropium [place] (Atrovent) 500 mcg Q4H PRN HHN Shortness of Breath 12/26/17 15:50 12/31/17 15:49 Methylprednisolone Sodium Succinate (Solu-MEDROL) 60 mg DAILY IV 12/27/17 09:00 01/20/18 00:00 12/29/17 08:11 Mineral Oil (Fleet's Mineral Oil Enema) 133 ml EVERY OTHER DAY RECTAL 12/27/17 09:00 01/22/18 09:59 Morphine Sulfate (Morphine Sulfate) 2 mg Q4H PRN IVP Severe Pain (Pain Scale 7-10) 12/26/17 15:58 12/31/17 15:57 Nitroglycerin (Ntg) 0.4 mg Q5M X 3 DOSES PRN SL Prn Chest Pain 12/26/17 15:59 01/19/18 15:58 Ondansetron HCl (Zofran) 4 mg Q6H PRN IVP Nausea & Vomiting 12/26/17 16:00 01/19/18 15:59 Polyethylene Glycol (Miralax) 17 gm BEDTIME ORAL 12/26/17 21:00 01/22/18 20:59 Promethazine HCl/ Codeine (Phenergan with Codeine) 5 ml Q6H PRN ORAL cough 12/26/17 16:01 01/23/18 16:00 Risperidone (RisperDAL) 1 mg BID ORAL 12/26/17 18:00 01/20/18 13:14 12/29/17 08:11 Sennosides (Senokot) 1 tab DAILY ORAL 12/27/17 09:00 01/22/18 14:59 12/28/17 09:03 Vitamin A/Vitamin D (A & D Oint) 1 applic EVERY 12 HOURS TOPIC 12/26/17 21:00 01/20/18 22:59 12/29/17 08:16 Leni Watts MD Dec 29, 2017 15:00
--- NOTE | 2017-12-29 15:59 | Cardiology Progress Note ---
Assessment/Plan Problem List: (1) Tachycardia (2) COPD (chronic obstructive pulmonary disease) (3) Hepatitis C (4) Diabetes mellitus out of control (5) Hypertension Status Narrative Mrs. Harris has COPD and was adm w/ respir decompensation BP controlled w/ amlodipine She has an irregular pulse - ? pacs vs af Assessment/Plan Continue pulm rx as per Dr. Watts Continue amlodipine for BP Will check EKG to assess rhythm. Subjective ROS Limited/Unobtainable: No Subjective Cardiology for Dr. Etienne Mrs. Harris has no c/o palpitations, chest pain, dyspnea at rest. Objective Last 24 Hour Vital Signs Date Time Temp Pulse Resp B/P (MAP) Pulse Ox O2 Delivery O2 Flow Rate FiO2 12/29/17 12:00 98.1 100 18 127/71 98 98.1 12/29/17 08:28 Nasal Cannula 3.0 12/29/17 08:26 97 Nasal Cannula 2.0 28 12/29/17 08:25 73 22 Nasal Cannula 2.0 28 12/29/17 08:12 100 133/81 12/29/17 08:00 97.9 98 20 100/65 100 97.9 12/29/17 04:03 97.0 100 20 133/81 100 Room Air 97.0 12/28/17 23:58 85 20 Nasal Cannula 2.0 28 12/28/17 23:58 97 Nasal Cannula 2.0 28 12/28/17 23:58 Nasal Cannula 2.0 28 12/28/17 23:50 97.7 78 20 111/75 100 Room Air 97.7 12/28/17 19:48 97.9 89 20 136/69 100 Room Air 97.9 General Appearance: WD/WN, no apparent distress, alert EENT: PERRL/EOMI Neck: supple, no JVD Cardiovascular: no gallop/murmur, other - irregular s1s2 without m Abdomen: non tender, soft, no mass Extremities: no swelling Intake and Output 12/28/17 12/29/17 19:00 07:00 Intake Total 540 ml Balance 540 ml Intake Oral 540 ml # Voids 3 4 # Bowel Movements 1 2 LOY ALLEN Dec 29, 2017 15:58
[2017-12-29 16:00] VITALS: BP 121/69
[2017-12-29 20:39] VITALS: BP 122/74
[2017-12-29] MEDS: Miralax 17gm pkt ORAL SCH (21:00)
[2017-12-29] MEDS: Dyna-Hex 2% Top Sol 2oz TOPIC SCH (21:24)
--- NOTE | 2017-12-29 23:56 | General Progress Note ---
Assessment/Plan Assessment/Plan 1. Thrombocytopenia, secondary to hepatitis C --> Hep A and C antibody test (+) --> Monitor for improvement. Transfuse if platelets <20k 2. Leukopenia, likely secondary to hepatitis C, currently improved. --> No leukocytosis is noted. The patient has been afebrile. --> Resolved at this time. 3. Anemia due to underlying chronic disease. --> Continue to closely monitor. --> Blood transfusion not required unless symptomatic or hgb <7 --> Reviewed anemia workup. Iron 110, TIBC 230, Ferritin 90, B12 821, Folate 6.6 , TSH 1.4 4. Acute on hypoxic respiratory failure, status post tracheostomy, improved. 5. Hepatitis C. Management as an outpatient. --> Appreciate Infectious Disease service evaluation. 6. Hypertension. Systolic blood pressure goal less than 140. --> Improved. 7. COPD. DC Planning. Subjective Date patient seen: Dec 29, 2017 Constitutional: Denies: no symptoms, chills, diaphoresis, fever, malaise, weakness, other HEENT: Denies: no symptoms, eye pain, blurred vision, tearing, double vision, ear pain, ear discharge, nose pain, nose congestion, throat pain, throat swelling, mouth pain, mouth swelling, other Cardiovascular: Denies: no symptoms, chest pain, edema, irregular heart rate, lightheadedness, palpitations, syncope, other Respiratory: Denies: no symptoms, cough, orthopnea, shortness of breath, SOB with excertion, SOB at rest, sputum, stridor, wheezing, other Gastrointestinal/Abdominal: Denies: no symptoms, abdomen distended, abdominal pain, black stools, tarry stools, blood in stool, constipated, diarrhea, difficulty swallowing, nausea, poor appetite, poor fluid intake, rectal bleeding , vomiting, other Genitourinary: Denies: no symptoms, burning, discharge, frequency, flank pain, hematuria, incontinence, pain, urgency, other Neurologic/Psychiatric: Denies: no symptoms, anxiety, depressed, emotional problems, headache, numbness, paresthesia, pre-existing deficit, seizure, tingling, tremors, weakness, other Hematologic/Lymphatic: Reports: anemia Allergies: Coded Allergies: Shrimp (Unverified Allergy, Unknown, 12/04/17) Subjective Some sob. H/H stable. No fever. Objective Last 24 Hour Vital Signs Date Time Temp Pulse Resp B/P (MAP) Pulse Ox O2 Delivery O2 Flow Rate FiO2 12/29/17 20:39 98.0 91 22 122/74 99 Room Air 98.0 12/29/17 20:00 Nasal Cannula 2.0 12/29/17 16:00 Room Air 12/29/17 16:00 97.7 103 18 121/69 98 97.7 12/29/17 12:00 Room Air 12/29/17 12:00 98.1 100 18 127/71 98 98.1 12/29/17 08:28 Nasal Cannula 3.0 12/29/17 08:26 97 Nasal Cannula 2.0 28 12/29/17 08:25 73 22 Nasal Cannula 2.0 28 12/29/17 08:12 100 133/81 12/29/17 08:00 97.9 98 20 100/65 100 97.9 12/29/17 08:00 Room Air 12/29/17 04:03 97.0 100 20 133/81 100 Room Air 97.0 12/28/17 23:58 85 20 Nasal Cannula 2.0 28 12/28/17 23:58 97 Nasal Cannula 2.0 28 12/28/17 23:58 Nasal Cannula 2.0 28 Intake and Output 12/28/17 12/29/17 19:00 07:00 Intake Total 540 ml Balance 540 ml Intake Oral 540 ml # Voids 3 4 # Bowel Movements 1 2 Height (Feet): 5 Height (Inches): 4.00 Weight (Pounds): 149 General Appearance: no apparent distress Respiratory/Chest: decreased breath sounds Anuj Alfaro MD Dec 29, 2017 23:56
[2017-12-30] VITALS: BP 145/84
[2017-12-30 04:00] VITALS: BP 130/76
[2017-12-30] MEDS: NovoLOG Insulin Flexpen SUBQ SCH ×7 (06:30→20:33)
--- NOTE | 2017-12-30 06:39 | General Progress Note ---
Assessment/Plan Problem List: (1) Diabetes mellitus out of control ICD Codes: E11.65 - Type 2 diabetes mellitus with hyperglycemia SNOMED: 81695916, 013475992 (2) COPD (chronic obstructive pulmonary disease) ICD Codes: J44.9 - Chronic obstructive pulmonary disease, unspecified SNOMED: 09005229 (3) Acute and chronic respiratory failure ICD Codes: J96.20 - Acute and chronic respiratory failure, unspecified whether with hypoxia or hypercapnia SNOMED: 57002136 Assessment/Plan continue Levemir 15 units bid continue Novolog 8 units ac tid continue NISS Subjective Allergies: Coded Allergies: Shrimp (Unverified Allergy, Unknown, 12/04/17) All Systems: reviewed and negative except above Subjective events noted glucose values improved no longer on IVSM Objective Last 24 Hour Vital Signs Date Time Temp Pulse Resp B/P (MAP) Pulse Ox O2 Delivery O2 Flow Rate FiO2 12/30/17 04:00 97.0 99 20 130/76 100 97.0 12/30/17 04:00 Nasal Cannula 2.0 12/30/17 00:00 99 Nasal Cannula 2.0 12/30/17 00:00 97.3 112 20 145/84 96 97.3 12/29/17 20:39 98.0 91 22 122/74 99 Room Air 98.0 12/29/17 20:00 Nasal Cannula 2.0 12/29/17 19:11 75 22 Nasal Cannula 2.0 28 12/29/17 19:10 Nasal Cannula 2.0 28 12/29/17 19:10 95 Nasal Cannula 2.0 28 12/29/17 16:00 Room Air 12/29/17 16:00 97.7 103 18 121/69 98 97.7 12/29/17 12:00 Room Air 12/29/17 12:00 98.1 100 18 127/71 98 98.1 12/29/17 08:28 Nasal Cannula 3.0 12/29/17 08:26 97 Nasal Cannula 2.0 28 12/29/17 08:25 73 22 Nasal Cannula 2.0 28 12/29/17 08:12 100 133/81 12/29/17 08:00 97.9 98 20 100/65 100 97.9 12/29/17 08:00 Room Air Intake and Output 12/29/17 12/30/17 19:00 07:00 Intake Total 680 ml 240 ml Balance 680 ml 240 ml Intake Oral 680 ml 240 ml # Voids 4 2 Height (Feet): 5 Height (Inches): 4.00 Weight (Pounds): 147 General Appearance: no apparent distress Respiratory/Chest: decreased breath sounds Abdomen: normal bowel sounds Objective Current Medications Medications (Trade) Dose Ordered Sig/Hansel Route PRN Reason Start Time Stop Time Status Last Admin Dose Admin Acetaminophen (Tylenol) 650 mg Q4H PRN ORAL T>100.5 12/30/17 07:31 01/19/18 15:30 Amlodipine Besylate (Norvasc) 5 mg DAILY ORAL 12/27/17 09:00 01/20/18 08:59 12/29/17 08:12 Chlorhexidine Gluconate (Jazzmine-Hex 2%) 1 applic DAILY@1999 TOPIC 12/26/17 20:00 01/20/18 19:59 12/29/17 21:24 Clonidine HCl (Catapres Tab) 0.1 mg Q4H PRN ORAL sbp more than 160mmHg 12/26/17 15:31 01/23/18 15:30 Dextrose (Dextrose 50%) 25 ml STAT PRN IV Blood Sugar btwn 60-69 mg/dL 12/26/17 15:33 01/25/18 15:32 12/26/17 21:55 Dextrose (Dextrose 50%) 50 ml STAT PRN IV BS less than 60mg/dl 12/26/17 15:34 01/25/18 15:33 Docusate Sodium (Colace) 100 mg THREE TIMES A DAY ORAL 12/26/17 18:00 01/22/18 09:59 12/28/17 17:25 Heparin Sodium (Porcine) (Heparin 5000 units/ml) 5,000 units EVERY 12 HOURS SUBQ 12/26/17 21:00 01/20/18 08:59 Insulin Aspart (NovoLOG) BEFORE MEALS AND HS SUBQ 12/26/17 16:30 01/22/18 20:59 12/29/17 21:32 Insulin Aspart (NovoLOG) 8 units NOVOTIAC SUBQ 12/26/17 16:50 01/23/18 11:49 12/29/17 17:17 Insulin Detemir (Levemir) 15 units EVERY 12 HOURS SUBQ 12/26/17 21:00 01/23/18 20:59 12/29/17 21:33 Ipratropium [place] (Atrovent) 500 mcg Q4H PRN HHN Shortness of Breath 12/26/17 15:50 12/31/17 15:49 Methylprednisolone Sodium Succinate (Solu-MEDROL) 60 mg DAILY IV 12/27/17 09:00 01/20/18 00:00 12/29/17 08:11 Mineral Oil (Fleet's Mineral Oil Enema) 133 ml EVERY OTHER DAY RECTAL 12/27/17 09:00 01/22/18 09:59 Morphine Sulfate (Morphine Sulfate) 2 mg Q4H PRN IVP Severe Pain (Pain Scale 7-10) 12/26/17 15:58 12/31/17 15:57 Nitroglycerin (Ntg) 0.4 mg Q5M X 3 DOSES PRN SL Prn Chest Pain 12/26/17 15:59 01/19/18 15:58 Ondansetron HCl (Zofran) 4 mg Q6H PRN IVP Nausea & Vomiting 12/26/17 16:00 01/19/18 15:59 Polyethylene Glycol (Miralax) 17 gm BEDTIME ORAL 12/26/17 21:00 01/22/18 20:59 Promethazine HCl/ Codeine (Phenergan with Codeine) 5 ml Q6H PRN ORAL cough 12/26/17 16:01 01/23/18 16:00 Risperidone (RisperDAL) 1 mg BID ORAL 12/26/17 18:00 01/20/18 13:14 12/29/17 17:16 Sennosides (Senokot) 1 tab DAILY ORAL 12/27/17 09:00 01/22/18 14:59 12/28/17 09:03 Vitamin A/Vitamin D (A & D Oint) 1 applic EVERY 12 HOURS TOPIC 12/26/17 21:00 01/20/18 22:59 12/29/17 21:33 Item Value Date Time Bedside Blood Glucose 108 mg/dl 12/30/17 0630 Bedside Blood Glucose 343 mg/dl H 12/29/17 2133 Bedside Blood Glucose 278 mg/dl H 12/29/17 1718 Bedside Blood Glucose 327 mg/dl H 12/29/17 1137 Bedside Blood Glucose 200 mg/dl H 12/29/17 0815 Bedside Blood Glucose 200 mg/dl H 12/29/17 0609 FEMI MCKEON Dec 30, 2017 06:39
[2017-12-30 08:03] VITALS: BP 102/63
[2017-12-30] MEDS: Sennosides 8.6mg ORAL SCH (08:32)
[2017-12-30] MEDS: Docusate 100mg cap ORAL SCH ×3 (08:32→17:38)
[2017-12-30] MEDS: Solu-MEDROL 125mg Inj IV SCH (08:33)
[2017-12-30] MEDS: Heparin 5000 units/ml inj SUBQ SCH ×2 (08:33→20:31)
[2017-12-30] MEDS: Levemir Flexpen SUBQ SCH ×2 (08:34→20:34)
[2017-12-30] MEDS: Vitamin A&D Oint 2oz Tube TOPIC SCH ×2 (08:36→20:26)
[2017-12-30 11:52] VITALS: BP 127/79
--- NOTE | 2017-12-30 14:18 | Pulmonology Progress Note ---
Assessment/Plan Problems: (1) Acute and chronic respiratory failure (2) COPD (chronic obstructive pulmonary disease) (3) Hepatitis C Assessment/Plan improving no new complains respiratory treatment check cultures dc planning in progress Subjective ROS Limited/Unobtainable: No Allergies: Coded Allergies: Shrimp (Unverified Allergy, Unknown, 12/04/17) Objective Last 24 Hour Vital Signs Date Time Temp Pulse Resp B/P (MAP) Pulse Ox O2 Delivery O2 Flow Rate FiO2 12/30/17 11:52 97.9 91 18 127/79 98 97.9 12/30/17 08:32 103 102/63 12/30/17 08:03 97.9 103 18 102/63 100 97.9 12/30/17 04:00 97.0 99 20 130/76 100 97.0 12/30/17 04:00 Nasal Cannula 2.0 12/30/17 00:00 99 Nasal Cannula 2.0 12/30/17 00:00 97.3 112 20 145/84 96 97.3 12/29/17 20:39 98.0 91 22 122/74 99 Room Air 98.0 12/29/17 20:00 Nasal Cannula 2.0 12/29/17 19:11 75 22 Nasal Cannula 2.0 28 12/29/17 19:10 Nasal Cannula 2.0 28 12/29/17 19:10 95 Nasal Cannula 2.0 28 12/29/17 16:00 Room Air 12/29/17 16:00 97.7 103 18 121/69 98 97.7 Intake and Output 12/29/17 12/30/17 19:00 07:00 Intake Total 680 ml 240 ml Balance 680 ml 240 ml Intake Oral 680 ml 240 ml # Voids 4 2 Objective General Appearance: cachetic HEENT: normocephalic Respiratory/Chest: chest wall non-tender, lungs clear Breasts: no masses Cardiovascular: normal peripheral pulses, normal rate Abdomen: normal bowel sounds, soft, non tender Extremities: no cyanosis, no clubbing 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 normal, no motor/sensory deficits Lymphatic: no neck adenopathy Current Medications Medications (Trade) Dose Ordered Sig/Hansel Route PRN Reason Start Time Stop Time Status Last Admin Dose Admin Acetaminophen (Tylenol) 650 mg Q4H PRN ORAL T>100.5 12/30/17 07:31 01/19/18 15:30 12/30/17 06:48 Amlodipine Besylate (Norvasc) 5 mg DAILY ORAL 12/27/17 09:00 01/20/18 08:59 12/29/17 08:12 Chlorhexidine Gluconate (Jazzmine-Hex 2%) 1 applic DAILY@2000 TOPIC 12/26/17 20:00 01/20/18 19:59 12/29/17 21:24 Clonidine HCl (Catapres Tab) 0.1 mg Q4H PRN ORAL sbp more than 160mmHg 12/26/17 15:31 01/23/18 15:30 Dextrose (Dextrose 50%) 25 ml STAT PRN IV Blood Sugar btwn 60-69 mg/dL 12/26/17 15:33 01/25/18 15:32 12/26/17 21:55 Dextrose (Dextrose 50%) 50 ml STAT PRN IV BS less than 60mg/dl 12/26/17 15:34 01/25/18 15:33 Docusate Sodium (Colace) 100 mg THREE TIMES A DAY ORAL 12/26/17 18:00 01/22/18 09:59 12/28/17 17:25 Heparin Sodium (Porcine) (Heparin 5000 units/ml) 5,000 units EVERY 12 HOURS SUBQ 12/26/17 21:00 01/20/18 08:59 Insulin Aspart (NovoLOG) BEFORE MEALS AND HS SUBQ 12/26/17 16:30 01/22/18 20:59 12/30/17 11:28 Insulin Aspart (NovoLOG) 8 units NOVOTIAC SUBQ 12/26/17 16:50 01/23/18 11:49 12/30/17 11:29 Insulin Detemir (Levemir) 15 units EVERY 12 HOURS SUBQ 12/26/17 21:00 01/23/18 20:59 12/30/17 08:34 Ipratropium [place] (Atrovent) 500 mcg Q4H PRN HHN Shortness of Breath 12/26/17 15:50 12/31/17 15:49 Methylprednisolone Sodium Succinate (Solu-MEDROL) 60 mg DAILY IV 12/27/17 09:00 01/20/18 00:00 12/30/17 08:33 Mineral Oil (Fleet's Mineral Oil Enema) 133 ml EVERY OTHER DAY RECTAL 12/27/17 09:00 01/22/18 09:59 Morphine Sulfate (Morphine Sulfate) 2 mg Q4H PRN IVP Severe Pain (Pain Scale 7-10) 12/26/17 15:58 12/31/17 15:57 Nitroglycerin (Ntg) 0.4 mg Q5M X 3 DOSES PRN SL Prn Chest Pain 12/26/17 15:59 01/19/18 15:58 Ondansetron HCl (Zofran) 4 mg Q6H PRN IVP Nausea & Vomiting 12/26/17 16:00 01/19/18 15:59 Polyethylene Glycol (Miralax) 17 gm BEDTIME ORAL 12/26/17 21:00 01/22/18 20:59 Promethazine HCl/ Codeine (Phenergan with Codeine) 5 ml Q6H PRN ORAL cough 12/26/17 16:01 01/23/18 16:00 Risperidone (RisperDAL) 1 mg BID ORAL 12/26/17 18:00 01/20/18 13:14 12/30/17 08:30 Sennosides (Senokot) 1 tab DAILY ORAL 12/27/17 09:00 01/22/18 14:59 12/28/17 09:03 Vitamin A/Vitamin D (A & D Oint) 1 applic EVERY 12 HOURS TOPIC 12/26/17 21:00 01/20/18 22:59 12/30/17 08:36 Leni Watts MD Dec 30, 2017 14:18
[2017-12-30 15:47] VITALS: BP 120/74
--- NOTE | 2017-12-30 16:51 | Cardiology Progress Note ---
Assessment/Plan Problem List: (1) Tachycardia (2) COPD (chronic obstructive pulmonary disease) (3) Hepatitis C (4) Diabetes mellitus out of control (5) Hypertension Status: stable, unchanged Status Narrative Mrs. Harris has COPD and was adm w/ respir decompensation BP controlled w/ amlodipine She notes occ palpitation and has irregular pulse Assessment/Plan Continue pulm rx as per Dr. Watts Continue amlodipine for BP EKG re-ordered to assess rhythm. PACs in past. Subjective ROS Limited/Unobtainable: No Subjective Cardiology for Dr. Etienne Mrs. Harris c/o intermittent palpitations. Also c/o constipation. No CP, abd pain Objective Last 24 Hour Vital Signs Date Time Temp Pulse Resp B/P (MAP) Pulse Ox O2 Delivery O2 Flow Rate FiO2 12/30/17 15:47 98.2 109 18 120/74 98 98.2 12/30/17 11:52 97.9 91 18 127/79 98 97.9 12/30/17 08:32 103 102/63 12/30/17 08:03 97.9 103 18 102/63 100 97.9 12/30/17 04:00 97.0 99 20 130/76 100 97.0 12/30/17 04:00 Nasal Cannula 2.0 12/30/17 00:00 99 Nasal Cannula 2.0 12/30/17 00:00 97.3 112 20 145/84 96 97.3 12/29/17 20:39 98.0 91 22 122/74 99 Room Air 98.0 12/29/17 20:00 Nasal Cannula 2.0 12/29/17 19:11 75 22 Nasal Cannula 2.0 28 12/29/17 19:10 Nasal Cannula 2.0 28 12/29/17 19:10 95 Nasal Cannula 2.0 28 General Appearance: WD/WN, no apparent distress, alert EENT: PERRL/EOMI Neck: supple, no JVD Cardiovascular: no gallop/murmur, irregularly irregular Respiratory/Chest: other - dec BS bilat Extremities: no swelling Intake and Output 12/29/17 12/30/17 19:00 07:00 Intake Total 680 ml 240 ml Balance 680 ml 240 ml Intake Oral 680 ml 240 ml # Voids 4 2 LOY ALLEN Dec 30, 2017 16:51
--- NOTE | 2017-12-30 17:00 | Progress Note ---
DATE: 12/29/2017 SUBJECTIVE: BG values improved. OBJECTIVE: Glucose values, mostly fasting glucose values improved. LABORATORY VALUES: None today. MEDICATIONS: Reviewed. PHYSICAL EXAMINATION: VITAL SIGNS: Blood pressure 122/74, heart rate 91, respiratory rate 22, temperature 98. HEENT: Pupils are equal and reactive to light. Sclerae are anicteric. NECK: No JVD. HEART: Regular. LUNGS: Scattered rhonchi. ABDOMEN: Positive bowel sounds. Soft. DIAGNOSES: 1. Acute on chronic respiratory failure. 2. Diabetes, exacerbated by steroid. 3. COPD. PLAN: 1. Continue Levemir 15 units b.i.d. 2. Continue NovoLog 8 units before meals t.i.d. 3. Continue sliding scale of insulin. Adrian Dixon M.D. DR: AJ/arabella JOB#: [id number] CC: ROBERTA
[2017-12-30 20:00] VITALS: BP 132/73
[2017-12-30] MEDS: Dyna-Hex 2% Top Sol 2oz TOPIC SCH (20:26)
[2017-12-30] MEDS: Miralax 17gm pkt ORAL SCH (20:30)
--- NOTE | 2017-12-30 22:31 | Infectious Diseases Prog Note ---
Assessment/Plan Assessment/Plan Assessment: Acute hypoxic resp failure improved COPD exacerbation- -CXR: No acute disease Afebrile, no leukocytosis Recent acute hypoxic failure and PNA 11/2015 -sp cx 12/04: E.coli (davila S), P. mirabilis (davila S) Influenza sc : Neg transaminitis Hx of Hep C Hep panel : P HIV Neg hx of trach s/p removal COPD Dm2 HTN NH resident Plan: - Monitor pt off of AB Rx 12/24 SP Levaquin # 5 /5 for COPD exacerbation and monitor pt off of AB Rx -12/10 SP Cefepime #7 -12/06 SP Vanco #3 -Monitor CBC/BMP, temperatures -aspiration precautions Henm fup, re TCP Subjective Allergies: Coded Allergies: Shrimp (Unverified Allergy, Unknown, 12/04/17) Subjective Afebrile Objective Vital Signs Last 24 Hour Vital Signs Date Time Temp Pulse Resp B/P (MAP) Pulse Ox O2 Delivery O2 Flow Rate FiO2 12/30/17 20:00 97.3 98 17 132/73 94 97.3 12/30/17 19:53 96 Nasal Cannula 2.0 28 12/30/17 19:53 Nasal Cannula 2.0 28 12/30/17 19:53 82 18 Nasal Cannula 2.0 28 12/30/17 16:00 Nasal Cannula 2.0 12/30/17 15:47 98.2 109 18 120/74 98 98.2 12/30/17 12:00 Nasal Cannula 2.0 12/30/17 11:52 97.9 91 18 127/79 98 97.9 12/30/17 08:32 103 102/63 12/30/17 08:03 Nasal Cannula 2.0 12/30/17 08:03 97.9 103 18 102/63 100 97.9 12/30/17 04:00 97.0 99 20 130/76 100 97.0 12/30/17 04:00 Nasal Cannula 2.0 12/30/17 00:00 99 Nasal Cannula 2.0 12/30/17 00:00 97.3 112 20 145/84 96 97.3 Height (Feet): 5 Height (Inches): 4.00 Weight (Pounds): 147 HEENT: anicteric Respiratory/Chest: no respiratory distress Cardiovascular: regularly irregular Abdomen: no organomegaly Current Medications Medications (Trade) Dose Ordered Sig/Hansel Route PRN Reason Start Time Stop Time Status Last Admin Dose Admin Acetaminophen (Tylenol) 650 mg Q4H PRN ORAL T>100.5 12/30/17 07:31 01/19/18 15:30 12/30/17 06:48 Amlodipine Besylate (Norvasc) 5 mg DAILY ORAL 12/27/17 09:00 01/20/18 08:59 12/29/17 08:12 Chlorhexidine Gluconate (Jazzmine-Hex 2%) 1 applic DAILY@2000 TOPIC 12/26/17 20:00 01/20/18 19:59 12/30/17 20:26 Clonidine HCl (Catapres Tab) 0.1 mg Q4H PRN ORAL sbp more than 160mmHg 12/26/17 15:31 01/23/18 15:30 Dextrose (Dextrose 50%) 25 ml STAT PRN IV Blood Sugar btwn 60-69 mg/dL 12/26/17 15:33 01/25/18 15:32 12/26/17 21:55 Dextrose (Dextrose 50%) 50 ml STAT PRN IV BS less than 60mg/dl 12/26/17 15:34 01/25/18 15:33 Docusate Sodium (Colace) 100 mg THREE TIMES A DAY ORAL 12/26/17 18:00 01/22/18 09:59 12/30/17 17:38 Heparin Sodium (Porcine) (Heparin 5000 units/ml) 5,000 units EVERY 12 HOURS SUBQ 12/26/17 21:00 01/20/18 08:59 Insulin Aspart (NovoLOG) BEFORE MEALS AND HS SUBQ 12/26/17 16:30 01/22/18 20:59 12/30/17 20:33 Insulin Aspart (NovoLOG) 8 units NOVOTIAC SUBQ 12/26/17 16:50 01/23/18 11:49 12/30/17 16:33 Insulin Detemir (Levemir) 15 units EVERY 12 HOURS SUBQ 12/26/17 21:00 01/23/18 20:59 12/30/17 20:34 Ipratropium [place] (Atrovent) 500 mcg Q4H PRN HHN Shortness of Breath 12/26/17 15:50 12/31/17 15:49 Methylprednisolone Sodium Succinate (Solu-MEDROL) 60 mg DAILY IV 12/27/17 09:00 01/20/18 00:00 12/30/17 08:33 Mineral Oil (Fleet's Mineral Oil Enema) 133 ml EVERY OTHER DAY RECTAL 12/27/17 09:00 01/22/18 09:59 Morphine Sulfate (Morphine Sulfate) 2 mg Q4H PRN IVP Severe Pain (Pain Scale 7-10) 12/26/17 15:58 12/31/17 15:57 Nitroglycerin (Ntg) 0.4 mg Q5M X 3 DOSES PRN SL Prn Chest Pain 12/26/17 15:59 01/19/18 15:58 Ondansetron HCl (Zofran) 4 mg Q6H PRN IVP Nausea & Vomiting 12/26/17 16:00 01/19/18 15:59 Polyethylene Glycol (Miralax) 17 gm BEDTIME ORAL 12/26/17 21:00 01/22/18 20:59 12/30/17 20:30 Promethazine HCl/ Codeine (Phenergan with Codeine) 5 ml Q6H PRN ORAL cough 12/26/17 16:01 01/23/18 16:00 Risperidone (RisperDAL) 1 mg BID ORAL 12/26/17 18:00 01/20/18 13:14 12/30/17 17:38 Sennosides (Senokot) 1 tab DAILY ORAL 12/27/17 09:00 01/22/18 14:59 12/28/17 09:03 Vitamin A/Vitamin D (A & D Oint) 1 applic EVERY 12 HOURS TOPIC 12/26/17 21:00 01/20/18 22:59 12/30/17 20:26 Steve Griffin MD Dec 30, 2017 22:31
[2017-12-31] VITALS: BP 122/73
--- NOTE | 2017-12-31 00:58 | General Progress Note ---
Assessment/Plan Assessment/Plan 1. Thrombocytopenia, secondary to hepatitis C --> Hep A and C antibody test (+) --> Monitor for improvement. Transfuse if platelets <20k 2. Leukopenia, likely secondary to hepatitis C, currently improved. --> No leukocytosis is noted. The patient has been afebrile. --> Resolved at this time. 3. Anemia due to underlying chronic disease. --> Continue to closely monitor. --> Blood transfusion not required unless symptomatic or hgb <7 --> Reviewed anemia workup. Iron 110, TIBC 230, Ferritin 90, B12 821, Folate 6.6 , TSH 1.4 4. Acute on hypoxic respiratory failure, status post tracheostomy, improved. 5. Hepatitis C. Management as an outpatient. --> Appreciate Infectious Disease service evaluation. 6. Hypertension. Systolic blood pressure goal less than 140. --> Improved. 7. COPD. DC Planning. Subjective Date patient seen: Dec 30, 2017 Constitutional: Denies: no symptoms, chills, diaphoresis, fever, malaise, weakness, other HEENT: Denies: no symptoms, eye pain, blurred vision, tearing, double vision, ear pain, ear discharge, nose pain, nose congestion, throat pain, throat swelling, mouth pain, mouth swelling, other Cardiovascular: Denies: no symptoms, chest pain, edema, irregular heart rate, lightheadedness, palpitations, syncope, other Respiratory: Denies: no symptoms, cough, orthopnea, shortness of breath, SOB with excertion, SOB at rest, sputum, stridor, wheezing, other Gastrointestinal/Abdominal: Denies: no symptoms, abdomen distended, abdominal pain, black stools, tarry stools, blood in stool, constipated, diarrhea, difficulty swallowing, nausea, poor appetite, poor fluid intake, rectal bleeding , vomiting, other Genitourinary: Denies: no symptoms, burning, discharge, frequency, flank pain, hematuria, incontinence, pain, urgency, other Neurologic/Psychiatric: Denies: no symptoms, anxiety, depressed, emotional problems, headache, numbness, paresthesia, pre-existing deficit, seizure, tingling, tremors, weakness, other Hematologic/Lymphatic: Reports: anemia Allergies: Coded Allergies: Shrimp (Unverified Allergy, Unknown, 12/04/17) Subjective No hematochezia. Afebrile. Objective Last 24 Hour Vital Signs Date Time Temp Pulse Resp B/P (MAP) Pulse Ox O2 Delivery O2 Flow Rate FiO2 12/31/17 00:00 97.9 96 19 122/73 98 97.9 12/31/17 00:00 Nasal Cannula 2.0 12/30/17 20:00 97.3 98 17 132/73 94 97.3 12/30/17 20:00 Nasal Cannula 2.0 12/30/17 19:53 96 Nasal Cannula 2.0 28 12/30/17 19:53 Nasal Cannula 2.0 28 12/30/17 19:53 82 18 Nasal Cannula 2.0 28 12/30/17 16:00 Nasal Cannula 2.0 12/30/17 15:47 98.2 109 18 120/74 98 98.2 12/30/17 12:00 Nasal Cannula 2.0 12/30/17 11:52 97.9 91 18 127/79 98 97.9 12/30/17 08:32 103 102/63 12/30/17 08:03 Nasal Cannula 2.0 12/30/17 08:03 97.9 103 18 102/63 100 97.9 12/30/17 04:00 97.0 99 20 130/76 100 97.0 12/30/17 04:00 Nasal Cannula 2.0 Intake and Output 12/30/17 12/31/17 19:00 07:00 Intake Total 610 ml Balance 610 ml Intake Oral 610 ml # Voids 2 Height (Feet): 5 Height (Inches): 4.00 Weight (Pounds): 147 General Appearance: confused Neck: normal alignment Cardiovascular: normal rate Respiratory/Chest: decreased breath sounds Abdomen: soft PEPITO PRADO Dec 31, 2017 00:58
[2017-12-31 04:00] VITALS: BP 143/68
[2017-12-31] MEDS: NovoLOG Insulin Flexpen SUBQ SCH ×7 (06:26→20:39)
--- NOTE | 2017-12-31 07:32 | General Progress Note ---
Assessment/Plan Problem List: (1) Diabetes mellitus out of control ICD Codes: E11.65 - Type 2 diabetes mellitus with hyperglycemia SNOMED: 38824228, 438076980 (2) COPD (chronic obstructive pulmonary disease) ICD Codes: J44.9 - Chronic obstructive pulmonary disease, unspecified SNOMED: 58169601 (3) Acute and chronic respiratory failure ICD Codes: J96.20 - Acute and chronic respiratory failure, unspecified whether with hypoxia or hypercapnia SNOMED: 14556456 Assessment/Plan continue Levemir 15 units bid increase Novolog to 10 units ac tid continue NISS Subjective Allergies: Coded Allergies: Shrimp (Unverified Allergy, Unknown, 12/04/17) All Systems: reviewed and negative except above Subjective events noted glucose values improved Objective Last 24 Hour Vital Signs Date Time Temp Pulse Resp B/P (MAP) Pulse Ox O2 Delivery O2 Flow Rate FiO2 12/31/17 04:00 96.6 96 20 143/68 96 96.6 12/31/17 00:00 97.9 96 19 122/73 98 97.9 12/31/17 00:00 Nasal Cannula 2.0 12/30/17 20:00 97.3 98 17 132/73 94 97.3 12/30/17 20:00 Nasal Cannula 2.0 12/30/17 19:53 96 Nasal Cannula 2.0 28 12/30/17 19:53 Nasal Cannula 2.0 28 12/30/17 19:53 82 18 Nasal Cannula 2.0 28 12/30/17 16:00 Nasal Cannula 2.0 12/30/17 15:47 98.2 109 18 120/74 98 98.2 12/30/17 12:00 Nasal Cannula 2.0 12/30/17 11:52 97.9 91 18 127/79 98 97.9 12/30/17 08:32 103 102/63 12/30/17 08:03 Nasal Cannula 2.0 12/30/17 08:03 97.9 103 18 102/63 100 97.9 Intake and Output 12/30/17 12/31/17 19:00 07:00 Intake Total 610 ml Balance 610 ml Intake Oral 610 ml # Voids 2 3 Laboratory Tests 12/31/17 04:00: White Blood Count [Pending], Red Blood Count [Pending], Hemoglobin [Pending], Hematocrit [Pending], Mean Corpuscular Volume [Pending], Mean Corpuscular Hemoglobin [Pending], Mean Corpuscular Hemoglobin Concent [Pending], Red Cell Distribution Width [Pending], Platelet Count [Pending], Mean Platelet Volume [ Pending], Neutrophils (%) (Auto) [Pending], Lymphocytes (%) (Auto) [Pending], Monocytes (%) (Auto) [Pending], Eosinophils (%) (Auto) [Pending], Basophils (%) (Auto) [Pending], Sodium Level [Pending], Potassium Level [Pending], Chloride Level [Pending], Carbon Dioxide Level [Pending], Blood Urea Nitrogen [Pending], Creatinine [Pending], Estimat Glomerular Filtration Rate [Pending], Glucose Level [Pending], Calcium Level [Pending], Total Bilirubin [Pending], Aspartate Amino Transf (AST/SGOT) [Pending], Alanine Aminotransferase (ALT/SGPT) [Pending] , Alkaline Phosphatase [Pending], Pro-B-Type Natriuretic Peptide [Pending], Total Protein [Pending], Albumin [Pending], Globulin [Pending] Height (Feet): 5 Height (Inches): 4.00 Weight (Pounds): 143 General Appearance: no apparent distress Neck: normal alignment Respiratory/Chest: decreased breath sounds Abdomen: normal bowel sounds Edema: 1+ Arm (L), 1+ Arm (R), 1+ Leg (L), 1+ Leg (R), 1+ Pedal (L), 1+ Pedal ( R), 1+ Generalized Objective Current Medications Medications (Trade) Dose Ordered Sig/Hansel Route PRN Reason Start Time Stop Time Status Last Admin Dose Admin Acetaminophen (Tylenol) 650 mg Q4H PRN ORAL T>100.5 12/30/17 07:31 01/19/18 15:30 12/31/17 03:55 Amlodipine Besylate (Norvasc) 5 mg DAILY ORAL 12/27/17 09:00 01/20/18 08:59 12/29/17 08:12 Chlorhexidine Gluconate (Jazzmine-Hex 2%) 1 applic DAILY@2000 TOPIC 12/26/17 20:00 01/20/18 19:59 12/30/17 20:26 Clonidine HCl (Catapres Tab) 0.1 mg Q4H PRN ORAL sbp more than 160mmHg 12/26/17 15:31 01/23/18 15:30 Dextrose (Dextrose 50%) 25 ml STAT PRN IV Blood Sugar btwn 60-69 mg/dL 12/26/17 15:33 01/25/18 15:32 12/26/17 21:55 Dextrose (Dextrose 50%) 50 ml STAT PRN IV BS less than 60mg/dl 12/26/17 15:34 01/25/18 15:33 Docusate Sodium (Colace) 100 mg THREE TIMES A DAY ORAL 12/26/17 18:00 01/22/18 09:59 12/30/17 17:38 Heparin Sodium (Porcine) (Heparin 5000 units/ml) 5,000 units EVERY 12 HOURS SUBQ 12/26/17 21:00 01/20/18 08:59 Insulin Aspart (NovoLOG) BEFORE MEALS AND HS SUBQ 12/26/17 16:30 01/22/18 20:59 12/31/17 06:26 Insulin Aspart (NovoLOG) 8 units NOVOTIAC SUBQ 12/26/17 16:50 01/23/18 11:49 12/31/17 06:27 Insulin Detemir (Levemir) 15 units EVERY 12 HOURS SUBQ 12/26/17 21:00 01/23/18 20:59 12/30/17 20:34 Ipratropium [place] (Atrovent) 500 mcg Q4H PRN HHN Shortness of Breath 12/26/17 15:50 12/31/17 15:49 Methylprednisolone Sodium Succinate (Solu-MEDROL) 60 mg DAILY IV 12/27/17 09:00 01/20/18 00:00 12/30/17 08:33 Mineral Oil (Fleet's Mineral Oil Enema) 133 ml EVERY OTHER DAY RECTAL 12/27/17 09:00 01/22/18 09:59 Morphine Sulfate (Morphine Sulfate) 2 mg Q4H PRN IVP Severe Pain (Pain Scale 7-10) 12/26/17 15:58 12/31/17 15:57 Nitroglycerin (Ntg) 0.4 mg Q5M X 3 DOSES PRN SL Prn Chest Pain 12/26/17 15:59 01/19/18 15:58 Ondansetron HCl (Zofran) 4 mg Q6H PRN IVP Nausea & Vomiting 12/26/17 16:00 01/19/18 15:59 Polyethylene Glycol (Miralax) 17 gm BEDTIME ORAL 12/26/17 21:00 01/22/18 20:59 12/30/17 20:30 Promethazine HCl/ Codeine (Phenergan with Codeine) 5 ml Q6H PRN ORAL cough 12/26/17 16:01 01/23/18 16:00 Risperidone (RisperDAL) 1 mg BID ORAL 12/26/17 18:00 01/20/18 13:14 12/30/17 17:38 Sennosides (Senokot) 1 tab DAILY ORAL 12/27/17 09:00 01/22/18 14:59 12/28/17 09:03 Vitamin A/Vitamin D (A & D Oint) 1 applic EVERY 12 HOURS TOPIC 12/26/17 21:00 01/20/18 22:59 12/30/17 20:26 Item Value Date Time Bedside Blood Glucose 243 mg/dl H 12/31/17 0630 Bedside Blood Glucose 192 mg/dl H 12/30/17 2038 Bedside Blood Glucose 325 mg/dl H 12/30/17 1634 Bedside Blood Glucose 362 mg/dl H 12/30/17 1129 Bedside Blood Glucose 108 mg/dl 12/30/17 0834 Bedside Blood Glucose 108 mg/dl 12/30/17 0630 FEMI MCKEON Dec 31, 2017 07:32
[2017-12-31 07:46] LABS: BASOPHILS % (AUTO) 0.3 % (0.0-2.0); EOSINOPHILS % (AUTO) 0.2 % (0.0-3.0); HEMATOCRIT 35.8 % (37.0-47.0); HEMOGLOBIN 11.3 G/DL (12.0-16.0); LYMPHOCYTES % (AUTO) 29.1 % (20.0-45.0); MEAN CORPUSCULAR VOLUME 85 FL (80-99); MONOCYTES % (AUTO) 7.5 % (1.0-10.0); PLATELET COUNT 129 K/UL (150-450); RED BLOOD COUNT 4.19 M/UL (4.20-5.40); RED CELL DISTRIBUTION WIDTH 14.7 % (11.6-14.8); WHITE BLOOD COUNT 10.4 K/UL (4.8-10.8)
[2017-12-31 07:56] LABS: ALANINE AMINOTRANSFERASE 59 U/L (12-78); ALBUMIN 2.9 G/DL (3.4-5.0); ALBUMIN/GLOBULIN RATIO 0.9 (1.0-2.7); ALKALINE PHOSPHATASE 43 U/L (46-116); ANION GAP 3 mmol/L (5-15); ASPARTATE AMINO TRANSFERASE 24 U/L (15-37); BILIRUBIN,TOTAL 0.7 MG/DL (0.2-1.0); BLOOD UREA NITROGEN 23 mg/dL (7-18); CALCIUM 9.1 MG/DL (8.5-10.1); CHLORIDE 99 MMOL/L (98-107); CREATININE 0.8 MG/DL (0.55-1.30); POTASSIUM 3.8 MMOL/L (3.5-5.1); SODIUM 143 MMOL/L (136-145)
[2017-12-31 07:57] LABS: CARBON DIOXIDE 41 MMOL/L (21-32)
[2017-12-31 08:15] VITALS: BP 136/73
[2017-12-31] MEDS: Fleet's Mineral Oil Enema RECTAL SCH (09:00)
[2017-12-31] MEDS: Solu-MEDROL 125mg Inj IV SCH (09:31)
[2017-12-31] MEDS: Docusate 100mg cap ORAL SCH ×3 (09:32→18:32)
[2017-12-31] MEDS: Sennosides 8.6mg ORAL SCH (09:33)
[2017-12-31] MEDS: Heparin 5000 units/ml inj SUBQ SCH ×2 (09:38→20:38)
[2017-12-31] MEDS: Vitamin A&D Oint 2oz Tube TOPIC SCH ×2 (09:41→20:40)
--- NOTE | 2017-12-31 10:53 | Diagnostic Imaging Report ---
Indication: Dyspnea Technique: One view of the chest Comparison: 12/24/2017 Findings: Left costophrenic angle blunting persists, unchanged. Minimal atelectasis at the left lung base is demonstrated. The lungs and pleural spaces are otherwise clear. The heart size is normal. Impression: Unchanged small left pleural effusion No acute process otherwise
[2017-12-31] MEDS: Levemir Flexpen SUBQ SCH ×2 (10:57→20:38)
[2017-12-31 11:51] VITALS: BP 11/63
--- NOTE | 2017-12-31 15:12 | Pulmonology Progress Note ---
Assessment/Plan Problems: (1) Acute and chronic respiratory failure (2) COPD (chronic obstructive pulmonary disease) (3) Hepatitis C Assessment/Plan improving no new events no new complains respiratory treatment check cultures dc planning in progress Subjective ROS Limited/Unobtainable: No Allergies: Coded Allergies: Shrimp (Unverified Allergy, Unknown, 12/04/17) Objective Last 24 Hour Vital Signs Date Time Temp Pulse Resp B/P (MAP) Pulse Ox O2 Delivery O2 Flow Rate FiO2 12/31/17 11:51 97.7 113 18 1163 Room Air 97.7 12/31/17 09:32 113 135/77 12/31/17 09:20 Nasal Cannula 2.0 12/31/17 08:19 89 22 Nasal Cannula 2.0 28 12/31/17 08:19 99 Nasal Cannula 2.0 28 12/31/17 08:15 97.5 103 18 136/73 97 Room Air 97.5 12/31/17 04:00 96.6 96 20 143/68 96 96.6 12/31/17 00:00 97.9 96 19 122/73 98 97.9 12/31/17 00:00 Nasal Cannula 2.0 12/30/17 20:00 97.3 98 17 132/73 94 97.3 12/30/17 20:00 Nasal Cannula 2.0 12/30/17 19:53 96 Nasal Cannula 2.0 28 12/30/17 19:53 Nasal Cannula 2.0 28 12/30/17 19:53 82 18 Nasal Cannula 2.0 28 12/30/17 16:00 Nasal Cannula 2.0 12/30/17 15:47 98.2 109 18 120/74 98 98.2 Intake and Output 12/30/17 12/31/17 19:00 07:00 Intake Total 610 ml Balance 610 ml Intake Oral 610 ml # Voids 2 3 Objective General Appearance: cachetic HEENT: normocephalic Respiratory/Chest: chest wall non-tender, lungs clear Breasts: no masses Cardiovascular: normal peripheral pulses, normal rate Abdomen: normal bowel sounds, soft, non tender Extremities: no cyanosis, no clubbing 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, no motor/sensory deficits Lymphatic: no neck adenopathy Laboratory Tests 12/31/17 04:00: White Blood Count 10.4, Red Blood Count 4.19L, Hemoglobin 11.3L, Hematocrit 35.8L, Mean Corpuscular Volume 85, Mean Corpuscular Hemoglobin 26.9L, Mean Corpuscular Hemoglobin Concent 31.5L, Red Cell Distribution Width 14.7, Platelet Count 129L, Mean Platelet Volume 6.5, Neutrophils (%) (Auto) 63.0, Lymphocytes (%) (Auto) 29.1, Monocytes (%) (Auto) 7.5, Eosinophils (%) (Auto) 0.2, Basophils (%) (Auto) 0.3, Sodium Level 143, Potassium Level 3.8, Chloride Level 99, Carbon Dioxide Level 41*H, Anion Gap 3L, Blood Urea Nitrogen 23H, Creatinine 0.8, Estimat Glomerular Filtration Rate > 60, Glucose Level 214H, Calcium Level 9.1, Total Bilirubin 0.7, Aspartate Amino Transf (AST/SGOT) 24, Alanine Aminotransferase (ALT/SGPT) 59, Alkaline Phosphatase 43L, Pro-B-Type Natriuretic Peptide 469H, Total Protein 6.0L, Albumin 2.9L, Globulin 3.1, Albumin/Globulin Ratio 0.9L Current Medications Medications (Trade) Dose Ordered Sig/Hansel Route PRN Reason Start Time Stop Time Status Last Admin Dose Admin Acetaminophen (Tylenol) 650 mg Q4H PRN ORAL T>100.5 12/30/17 07:31 01/19/18 15:30 12/31/17 03:55 Amlodipine Besylate (Norvasc) 5 mg DAILY ORAL 12/27/17 09:00 01/20/18 08:59 12/31/17 09:32 Chlorhexidine Gluconate (Jazzmine-Hex 2%) 1 applic DAILY@1999 TOPIC 12/26/17 20:00 01/20/18 19:59 12/30/17 20:26 Clonidine HCl (Catapres Tab) 0.1 mg Q4H PRN ORAL sbp more than 160mmHg 12/26/17 15:31 01/23/18 15:30 Dextrose (Dextrose 50%) 25 ml STAT PRN IV Blood Sugar btwn 60-69 mg/dL 12/26/17 15:33 01/25/18 15:32 12/26/17 21:55 Dextrose (Dextrose 50%) 50 ml STAT PRN IV BS less than 60mg/dl 12/26/17 15:34 01/25/18 15:33 Docusate Sodium (Colace) 100 mg THREE TIMES A DAY ORAL 12/26/17 18:00 01/22/18 09:59 12/31/17 13:48 Heparin Sodium (Porcine) (Heparin 5000 units/ml) 5,000 units EVERY 12 HOURS SUBQ 12/26/17 21:00 01/20/18 08:59 12/31/17 09:38 Insulin Aspart (NovoLOG) BEFORE MEALS AND HS SUBQ 12/26/17 16:30 01/22/18 20:59 12/31/17 12:20 Insulin Aspart (NovoLOG) 10 units NOVOTIAC SUBQ 12/31/17 11:50 01/23/18 11:49 Insulin Detemir (Levemir) 15 units EVERY 12 HOURS SUBQ 12/26/17 21:00 01/23/18 20:59 12/31/17 10:57 Ipratropium [place] (Atrovent) 500 mcg Q4H PRN HHN Shortness of Breath 12/26/17 15:50 12/31/17 15:49 Methylprednisolone Sodium Succinate (Solu-MEDROL) 60 mg DAILY IV 12/27/17 09:00 01/20/18 00:00 12/31/17 09:31 Mineral Oil (Fleet's Mineral Oil Enema) 133 ml EVERY OTHER DAY RECTAL 12/27/17 09:00 01/22/18 09:59 Morphine Sulfate (Morphine Sulfate) 2 mg Q4H PRN IVP Severe Pain (Pain Scale 7-10) 12/26/17 15:58 12/31/17 15:57 Nitroglycerin (Ntg) 0.4 mg Q5M X 3 DOSES PRN SL Prn Chest Pain 12/26/17 15:59 01/19/18 15:58 Ondansetron HCl (Zofran) 4 mg Q6H PRN IVP Nausea & Vomiting 12/26/17 16:00 01/19/18 15:59 Polyethylene Glycol (Miralax) 17 gm BEDTIME ORAL 12/26/17 21:00 01/22/18 20:59 12/30/17 20:30 Promethazine HCl/ Codeine (Phenergan with Codeine) 5 ml Q6H PRN ORAL cough 12/26/17 16:01 01/23/18 16:00 Risperidone (RisperDAL) 1 mg BID ORAL 12/26/17 18:00 01/20/18 13:14 12/31/17 09:33 Sennosides (Senokot) 1 tab DAILY ORAL 12/27/17 09:00 01/22/18 14:59 12/31/17 09:33 Vitamin A/Vitamin D (A & D Oint) 1 applic EVERY 12 HOURS TOPIC 12/26/17 21:00 01/20/18 22:59 12/31/17 09:41 Leni Watts MD Dec 31, 2017 15:12
[2017-12-31 16:07] VITALS: BP 126/66
--- NOTE | 2017-12-31 18:57 | Cardiology Progress Note ---
Assessment/Plan Assessment/Plan 1. Sinus tachycardia with premature atrial complexes. 2. Chronic obstructive pulmonary disease. 3. Diabetes mellitus. 4. Hypertension history tle sinu tachy now off tele i dcd beta agonist inhalers hr seem ok ekg snisu with pac ? mat Subjective Cardiovascular: Denies: chest pain Respiratory: Denies: shortness of breath Gastrointestinal/Abdominal: Denies: abdominal pain Genitourinary: Denies: burning Objective Last 24 Hour Vital Signs Date Time Temp Pulse Resp B/P (MAP) Pulse Ox O2 Delivery O2 Flow Rate FiO2 12/31/17 16:07 98.1 113 18 126/66 Room Air 98.1 12/31/17 11:51 97.7 113 18 11/63 Room Air 97.7 12/31/17 09:32 113 135/77 12/31/17 09:20 Nasal Cannula 2.0 12/31/17 08:19 89 22 Nasal Cannula 2.0 28 12/31/17 08:19 99 Nasal Cannula 2.0 28 12/31/17 08:15 97.5 103 18 136/73 97 Room Air 97.5 12/31/17 04:00 96.6 96 20 143/68 96 96.6 12/31/17 00:00 97.9 96 19 122/73 98 97.9 12/31/17 00:00 Nasal Cannula 2.0 12/30/17 20:00 97.3 98 17 132/73 94 97.3 12/30/17 20:00 Nasal Cannula 2.0 12/30/17 19:53 96 Nasal Cannula 2.0 28 12/30/17 19:53 Nasal Cannula 2.0 28 12/30/17 19:53 82 18 Nasal Cannula 2.0 28 General Appearance: alert Cardiovascular: tachycardia Respiratory/Chest: rhonchi - bilaterally Abdomen: normal bowel sounds, non tender, soft Extremities: no swelling Intake and Output 12/30/17 12/31/17 19:00 07:00 Intake Total 610 ml Balance 610 ml Intake Oral 610 ml # Voids 2 3 Laboratory Tests Test 12/31/17 04:00 White Blood Count 10.4 K/UL (4.8-10.8) Red Blood Count 4.19 M/UL (4.20-5.40) L Hemoglobin 11.3 G/DL (12.0-16.0) L Hematocrit 35.8 % (37.0-47.0) L Mean Corpuscular Volume 85 FL (80-99) Mean Corpuscular Hemoglobin 26.9 PG (27.0-31.0) L Mean Corpuscular Hemoglobin Concent 31.5 G/DL (32.0-36.0) L Red Cell Distribution Width 14.7 % (11.6-14.8) Platelet Count 129 K/UL (150-450) L Mean Platelet Volume 6.5 FL (6.5-10.1) Neutrophils (%) (Auto) 63.0 % (45.0-75.0) Lymphocytes (%) (Auto) 29.1 % (20.0-45.0) Monocytes (%) (Auto) 7.5 % (1.0-10.0) Eosinophils (%) (Auto) 0.2 % (0.0-3.0) Basophils (%) (Auto) 0.3 % (0.0-2.0) Sodium Level 143 MMOL/L (136-145) Potassium Level 3.8 MMOL/L (3.5-5.1) Chloride Level 99 MMOL/L (98-107) Carbon Dioxide Level 41 MMOL/L (21-32) *H Anion Gap 3 mmol/L (5-15) L Blood Urea Nitrogen 23 mg/dL (7-18) H Creatinine 0.8 MG/DL (0.55-1.30) Estimat Glomerular Filtration Rate > 60 mL/min (>60) Glucose Level 214 MG/DL (74-106) H Calcium Level 9.1 MG/DL (8.5-10.1) Total Bilirubin 0.7 MG/DL (0.2-1.0) Aspartate Amino Transf (AST/SGOT) 24 U/L (15-37) Alanine Aminotransferase (ALT/SGPT) 59 U/L (12-78) Alkaline Phosphatase 43 U/L (46-116) L Pro-B-Type Natriuretic Peptide 469 pg/mL (0-125) H Total Protein 6.0 G/DL (6.4-8.2) L Albumin 2.9 G/DL (3.4-5.0) L Globulin 3.1 g/dL Albumin/Globulin Ratio 0.9 (1.0-2.7) L STEVO WAGNER Dec 31, 2017 18:57
--- NOTE | 2017-12-31 19:52 | Infectious Diseases Prog Note ---
Assessment/Plan Assessment/Plan Assessment: Acute hypoxic resp failure improved COPD exacerbation- -CXR: No acute disease Afebrile, no leukocytosis Recent acute hypoxic failure and PNA 11/2015 -sp cx 12/04: E.coli (davila S), P. mirabilis (davila S) Influenza sc : Neg transaminitis Hx of Hep C Hep panel : P HIV Neg hx of trach s/p removal COPD Dm2 HTN [facility] resident Plan: - Monitor pt off of AB Rx 12/24 SP Levaquin # 5 /5 for COPD exacerbation and monitor pt off of AB Rx -12/10 SP Cefepime #7 -12/06 SP Vanco #3 -Monitor CBC/BMP, temperatures -aspiration precautions Henm fup, re TCP Subjective Allergies: Coded Allergies: Shrimp (Unverified Allergy, Unknown, 12/04/17) Subjective Afebrile Objective Vital Signs Last 24 Hour Vital Signs Date Time Temp Pulse Resp B/P (MAP) Pulse Ox O2 Delivery O2 Flow Rate FiO2 12/31/17 16:07 98.1 113 18 126/66 Room Air 98.1 12/31/17 11:51 97.7 113 18 11/63 Room Air 97.7 12/31/17 09:32 113 135/77 12/31/17 09:20 Nasal Cannula 2.0 12/31/17 08:19 89 22 Nasal Cannula 2.0 28 12/31/17 08:19 99 Nasal Cannula 2.0 28 12/31/17 08:15 97.5 103 18 136/73 97 Room Air 97.5 12/31/17 04:00 96.6 96 20 143/68 96 96.6 12/31/17 00:00 97.9 96 19 122/73 98 97.9 12/31/17 00:00 Nasal Cannula 2.0 12/30/17 20:00 97.3 98 17 132/73 94 97.3 12/30/17 20:00 Nasal Cannula 2.0 12/30/17 19:53 96 Nasal Cannula 2.0 28 12/30/17 19:53 Nasal Cannula 2.0 28 12/30/17 19:53 82 18 Nasal Cannula 2.0 28 Height (Feet): 5 Height (Inches): 4.00 Weight (Pounds): 143 HEENT: anicteric Respiratory/Chest: normal breath sounds Cardiovascular: regular rhythm Abdomen: no organomegaly Laboratory Tests Test 12/31/17 04:00 White Blood Count 10.4 K/UL (4.8-10.8) Red Blood Count 4.19 M/UL (4.20-5.40) L Hemoglobin 11.3 G/DL (12.0-16.0) L Hematocrit 35.8 % (37.0-47.0) L Mean Corpuscular Volume 85 FL (80-99) Mean Corpuscular Hemoglobin 26.9 PG (27.0-31.0) L Mean Corpuscular Hemoglobin Concent 31.5 G/DL (32.0-36.0) L Red Cell Distribution Width 14.7 % (11.6-14.8) Platelet Count 129 K/UL (150-450) L Mean Platelet Volume 6.5 FL (6.5-10.1) Neutrophils (%) (Auto) 63.0 % (45.0-75.0) Lymphocytes (%) (Auto) 29.1 % (20.0-45.0) Monocytes (%) (Auto) 7.5 % (1.0-10.0) Eosinophils (%) (Auto) 0.2 % (0.0-3.0) Basophils (%) (Auto) 0.3 % (0.0-2.0) Sodium Level 143 MMOL/L (136-145) Potassium Level 3.8 MMOL/L (3.5-5.1) Chloride Level 99 MMOL/L (98-107) Carbon Dioxide Level 41 MMOL/L (21-32) *H Anion Gap 3 mmol/L (5-15) L Blood Urea Nitrogen 23 mg/dL (7-18) H Creatinine 0.8 MG/DL (0.55-1.30) Estimat Glomerular Filtration Rate > 60 mL/min (>60) Glucose Level 214 MG/DL (74-106) H Calcium Level 9.1 MG/DL (8.5-10.1) Total Bilirubin 0.7 MG/DL (0.2-1.0) Aspartate Amino Transf (AST/SGOT) 24 U/L (15-37) Alanine Aminotransferase (ALT/SGPT) 59 U/L (12-78) Alkaline Phosphatase 43 U/L (46-116) L Pro-B-Type Natriuretic Peptide 469 pg/mL (0-125) H Total Protein 6.0 G/DL (6.4-8.2) L Albumin 2.9 G/DL (3.4-5.0) L Globulin 3.1 g/dL Albumin/Globulin Ratio 0.9 (1.0-2.7) L Current Medications Medications (Trade) Dose Ordered Sig/Hansel Route PRN Reason Start Time Stop Time Status Last Admin Dose Admin Acetaminophen (Tylenol) 650 mg Q4H PRN ORAL T>100.5 12/30/17 07:31 01/19/18 15:30 12/31/17 03:55 Amlodipine Besylate (Norvasc) 5 mg DAILY ORAL 12/27/17 09:00 01/20/18 08:59 12/31/17 09:32 Chlorhexidine Gluconate (Jazzmine-Hex 2%) 1 applic DAILY@1999 TOPIC 12/26/17 20:00 01/20/18 19:59 12/30/17 20:26 Clonidine HCl (Catapres Tab) 0.1 mg Q4H PRN ORAL sbp more than 160mmHg 12/26/17 15:31 01/23/18 15:30 Dextrose (Dextrose 50%) 25 ml STAT PRN IV Blood Sugar btwn 60-69 mg/dL 12/26/17 15:33 01/25/18 15:32 12/26/17 21:55 Dextrose (Dextrose 50%) 50 ml STAT PRN IV BS less than 60mg/dl 12/26/17 15:34 01/25/18 15:33 Docusate Sodium (Colace) 100 mg THREE TIMES A DAY ORAL 12/26/17 18:00 01/22/18 09:59 12/31/17 18:32 Heparin Sodium (Porcine) (Heparin 5000 units/ml) 5,000 units EVERY 12 HOURS SUBQ 12/26/17 21:00 01/20/18 08:59 12/31/17 09:38 Insulin Aspart (NovoLOG) BEFORE MEALS AND HS SUBQ 12/26/17 16:30 01/22/18 20:59 12/31/17 17:05 Insulin Aspart (NovoLOG) 10 units NOVOTIAC SUBQ 12/31/17 11:50 01/23/18 11:49 12/31/17 17:03 Insulin Detemir (Levemir) 15 units EVERY 12 HOURS SUBQ 12/26/17 21:00 01/23/18 20:59 12/31/17 10:57 Methylprednisolone Sodium Succinate (Solu-MEDROL) 60 mg DAILY IV 12/27/17 09:00 01/20/18 00:00 12/31/17 09:31 Mineral Oil (Fleet's Mineral Oil Enema) 133 ml EVERY OTHER DAY RECTAL 12/27/17 09:00 01/22/18 09:59 Nitroglycerin (Ntg) 0.4 mg Q5M X 3 DOSES PRN SL Prn Chest Pain 12/26/17 15:59 01/19/18 15:58 Ondansetron HCl (Zofran) 4 mg Q6H PRN IVP Nausea & Vomiting 12/26/17 16:00 01/19/18 15:59 Polyethylene Glycol (Miralax) 17 gm BEDTIME ORAL 12/26/17 21:00 01/22/18 20:59 12/30/17 20:30 Promethazine HCl/ Codeine (Phenergan with Codeine) 5 ml Q6H PRN ORAL cough 12/26/17 16:01 01/23/18 16:00 Risperidone (RisperDAL) 1 mg BID ORAL 12/26/17 18:00 01/20/18 13:14 12/31/17 18:32 Sennosides (Senokot) 1 tab DAILY ORAL 12/27/17 09:00 01/22/18 14:59 12/31/17 09:33 Vitamin A/Vitamin D (A & D Oint) 1 applic EVERY 12 HOURS TOPIC 12/26/17 21:00 01/20/18 22:59 12/31/17 09:41 Steve Griffin MD Dec 31, 2017 19:52
[2017-12-31 20:00] VITALS: BP 129/58
[2017-12-31] MEDS: Dyna-Hex 2% Top Sol 2oz TOPIC SCH (20:37)
[2017-12-31] MEDS: Miralax 17gm pkt ORAL SCH (20:39)
--- NOTE | 2017-12-31 21:39 | Cardiology Report ---
APPROVED REPORT EKG Measurement Heart [id number] Multifocal atrial tachycardia with premature ventricular complexes Nonspecific T wave abnormality Abnormal ECG
--- NOTE | 2017-12-31 22:43 | General Progress Note ---
Assessment/Plan Assessment/Plan 1. Thrombocytopenia, secondary to hepatitis C --> Hep A and C antibody test (+) --> Improving. Transfuse if platelets <20k 2. Leukopenia, likely secondary to hepatitis C, currently improved. --> No leukocytosis is noted. The patient has been afebrile. --> Resolved at this time. 3. Anemia due to underlying chronic disease. --> Continue to closely monitor. --> Blood transfusion not required unless symptomatic or hgb <7 --> Reviewed anemia workup. Iron 110, TIBC 230, Ferritin 90, B12 821, Folate 6.6 , TSH 1.4 4. Acute on hypoxic respiratory failure, status post tracheostomy, improved. 5. Hepatitis C. Management as an outpatient. --> Appreciate Infectious Disease service evaluation. 6. Hypertension. Systolic blood pressure goal less than 140. --> Improved. 7. COPD. DC Planning. Subjective Date patient seen: Dec 31, 2017 Constitutional: Denies: no symptoms, chills, diaphoresis, fever, malaise, weakness, other HEENT: Denies: no symptoms, eye pain, blurred vision, tearing, double vision, ear pain, ear discharge, nose pain, nose congestion, throat pain, throat swelling, mouth pain, mouth swelling, other Cardiovascular: Denies: no symptoms, chest pain, edema, irregular heart rate, lightheadedness, palpitations, syncope, other Respiratory: Denies: no symptoms, cough, orthopnea, shortness of breath, SOB with excertion, SOB at rest, sputum, stridor, wheezing, other Gastrointestinal/Abdominal: Denies: no symptoms, abdomen distended, abdominal pain, black stools, tarry stools, blood in stool, constipated, diarrhea, difficulty swallowing, nausea, poor appetite, poor fluid intake, rectal bleeding , vomiting, other Genitourinary: Denies: no symptoms, burning, discharge, frequency, flank pain, hematuria, incontinence, pain, urgency, other Neurologic/Psychiatric: Denies: no symptoms, anxiety, depressed, emotional problems, headache, numbness, paresthesia, pre-existing deficit, seizure, tingling, tremors, weakness, other Hematologic/Lymphatic: Reports: anemia Allergies: Coded Allergies: Shrimp (Unverified Allergy, Unknown, 12/04/17) Subjective No hematochezia. Afebrile. Objective Last 24 Hour Vital Signs Date Time Temp Pulse Resp B/P (MAP) Pulse Ox O2 Delivery O2 Flow Rate FiO2 12/31/17 20:34 99 Nasal Cannula 2.0 28 12/31/17 20:34 Nasal Cannula 2.0 28 12/31/17 20:33 113 18 Room Air 2.0 28 12/31/17 20:00 97.5 100 20 129/58 100 Nasal Cannula 2.0 97.5 12/31/17 16:07 98.1 113 18 126/66 Room Air 98.1 12/31/17 11:51 97.7 113 18 11/63 Room Air 97.7 12/31/17 09:32 113 135/77 12/31/17 09:20 Nasal Cannula 2.0 12/31/17 08:19 89 22 Nasal Cannula 2.0 28 12/31/17 08:19 99 Nasal Cannula 2.0 28 12/31/17 08:15 97.5 103 18 136/73 97 Room Air 97.5 12/31/17 04:00 96.6 96 20 143/68 96 96.6 12/31/17 00:00 97.9 96 19 122/73 98 97.9 12/31/17 00:00 Nasal Cannula 2.0 Intake and Output 12/30/17 12/31/17 19:00 07:00 Intake Total 610 ml Balance 610 ml Intake Oral 610 ml # Voids 2 3 Laboratory Tests 12/31/17 04:00: White Blood Count 10.4, Red Blood Count 4.19L, Hemoglobin 11.3L, Hematocrit 35.8L, Mean Corpuscular Volume 85, Mean Corpuscular Hemoglobin 26.9L, Mean Corpuscular Hemoglobin Concent 31.5L, Red Cell Distribution Width 14.7, Platelet Count 129L, Mean Platelet Volume 6.5, Neutrophils (%) (Auto) 63.0, Lymphocytes (%) (Auto) 29.1, Monocytes (%) (Auto) 7.5, Eosinophils (%) (Auto) 0.2, Basophils (%) (Auto) 0.3, Sodium Level 143, Potassium Level 3.8, Chloride Level 99, Carbon Dioxide Level 41*H, Anion Gap 3L, Blood Urea Nitrogen 23H, Creatinine 0.8, Estimat Glomerular Filtration Rate > 60, Glucose Level 214H, Calcium Level 9.1, Total Bilirubin 0.7, Aspartate Amino Transf (AST/SGOT) 24, Alanine Aminotransferase (ALT/SGPT) 59, Alkaline Phosphatase 43L, Pro-B-Type Natriuretic Peptide 469H, Total Protein 6.0L, Albumin 2.9L, Globulin 3.1, Albumin/Globulin Ratio 0.9L Height (Feet): 5 Height (Inches): 4.00 Weight (Pounds): 143 General Appearance: no apparent distress EENT: normal ENT inspection Neck: normal alignment Cardiovascular: tachycardia Respiratory/Chest: decreased breath sounds PEPITO PRADO Dec 31, 2017 22:43
[2018-01-01] VITALS: BP 103/74
--- NOTE | 2018-01-01 00:03 | General Progress Note ---
Assessment/Plan Assessment/Plan encephalopathy psychosis due to [facility] rispedal ativan Subjective Date patient seen: Dec 30, 2017 Allergies: Coded Allergies: Shrimp (Unverified Allergy, Unknown, 12/04/17) Subjective the pt is calm no psychotic sxs. no agitation Objective Last 24 Hour Vital Signs Date Time Temp Pulse Resp B/P (MAP) Pulse Ox O2 Delivery O2 Flow Rate FiO2 12/31/17 20:34 99 Nasal Cannula 2.0 28 12/31/17 20:34 Nasal Cannula 2.0 28 12/31/17 20:33 113 18 Room Air 2.0 28 12/31/17 20:00 97.5 100 20 129/58 100 Nasal Cannula 2.0 97.5 12/31/17 16:07 98.1 113 18 126/66 Room Air 98.1 12/31/17 11:51 97.7 113 18 11/63 Room Air 97.7 12/31/17 09:32 113 135/77 12/31/17 09:20 Nasal Cannula 2.0 12/31/17 08:19 89 22 Nasal Cannula 2.0 28 12/31/17 08:19 99 Nasal Cannula 2.0 28 12/31/17 08:15 97.5 103 18 136/73 97 Room Air 97.5 12/31/17 04:00 96.6 96 20 143/68 96 96.6 Intake and Output 12/31/17 01/01/18 19:00 07:00 Intake Total 480 ml Balance 480 ml Intake Oral 480 ml Laboratory Tests 12/31/17 04:00: White Blood Count 10.4, Red Blood Count 4.19L, Hemoglobin 11.3L, Hematocrit 35.8L, Mean Corpuscular Volume 85, Mean Corpuscular Hemoglobin 26.9L, Mean Corpuscular Hemoglobin Concent 31.5L, Red Cell Distribution Width 14.7, Platelet Count 129L, Mean Platelet Volume 6.5, Neutrophils (%) (Auto) 63.0, Lymphocytes (%) (Auto) 29.1, Monocytes (%) (Auto) 7.5, Eosinophils (%) (Auto) 0.2, Basophils (%) (Auto) 0.3, Sodium Level 143, Potassium Level 3.8, Chloride Level 99, Carbon Dioxide Level 41*H, Anion Gap 3L, Blood Urea Nitrogen 23H, Creatinine 0.8, Estimat Glomerular Filtration Rate > 60, Glucose Level 214H, Calcium Level 9.1, Total Bilirubin 0.7, Aspartate Amino Transf (AST/SGOT) 24, Alanine Aminotransferase (ALT/SGPT) 59, Alkaline Phosphatase 43L, Pro-B-Type Natriuretic Peptide 469H, Total Protein 6.0L, Albumin 2.9L, Globulin 3.1, Albumin/Globulin Ratio 0.9L Height (Feet): 5 Height (Inches): 4.00 Weight (Pounds): 143 Grisel Jay M.D. Jan 01, 2018 00:03
--- NOTE | 2018-01-01 00:03 | General Progress Note ---
Assessment/Plan Assessment/Plan encephalopathy psychosis due to [facility] rispedal ativan Subjective Date patient seen: Dec 31, 2017 Allergies: Coded Allergies: Shrimp (Unverified Allergy, Unknown, 12/04/17) Subjective the pt is calm no psychotic sxs. no agitation Objective Last 24 Hour Vital Signs Date Time Temp Pulse Resp B/P (MAP) Pulse Ox O2 Delivery O2 Flow Rate FiO2 12/31/17 20:34 99 Nasal Cannula 2.0 28 12/31/17 20:34 Nasal Cannula 2.0 28 12/31/17 20:33 113 18 Room Air 2.0 28 12/31/17 20:00 97.5 100 20 129/58 100 Nasal Cannula 2.0 97.5 12/31/17 16:07 98.1 113 18 126/66 Room Air 98.1 12/31/17 11:51 97.7 113 18 11/63 Room Air 97.7 12/31/17 09:32 113 135/77 12/31/17 09:20 Nasal Cannula 2.0 12/31/17 08:19 89 22 Nasal Cannula 2.0 28 12/31/17 08:19 99 Nasal Cannula 2.0 28 12/31/17 08:15 97.5 103 18 136/73 97 Room Air 97.5 12/31/17 04:00 96.6 96 20 143/68 96 96.6 Intake and Output 12/31/17 01/01/18 19:00 07:00 Intake Total 480 ml Balance 480 ml Intake Oral 480 ml Laboratory Tests 12/31/17 04:00: White Blood Count 10.4, Red Blood Count 4.19L, Hemoglobin 11.3L, Hematocrit 35.8L, Mean Corpuscular Volume 85, Mean Corpuscular Hemoglobin 26.9L, Mean Corpuscular Hemoglobin Concent 31.5L, Red Cell Distribution Width 14.7, Platelet Count 129L, Mean Platelet Volume 6.5, Neutrophils (%) (Auto) 63.0, Lymphocytes (%) (Auto) 29.1, Monocytes (%) (Auto) 7.5, Eosinophils (%) (Auto) 0.2, Basophils (%) (Auto) 0.3, Sodium Level 143, Potassium Level 3.8, Chloride Level 99, Carbon Dioxide Level 41*H, Anion Gap 3L, Blood Urea Nitrogen 23H, Creatinine 0.8, Estimat Glomerular Filtration Rate > 60, Glucose Level 214H, Calcium Level 9.1, Total Bilirubin 0.7, Aspartate Amino Transf (AST/SGOT) 24, Alanine Aminotransferase (ALT/SGPT) 59, Alkaline Phosphatase 43L, Pro-B-Type Natriuretic Peptide 469H, Total Protein 6.0L, Albumin 2.9L, Globulin 3.1, Albumin/Globulin Ratio 0.9L Height (Feet): 5 Height (Inches): 4.00 Weight (Pounds): 143 Grisel Jay M.D. Jan 01, 2018 00:03
--- NOTE | 2018-01-01 00:04 | Psych Consult Progress Note ---
Psych Consult Progress Note Consult 12/29/17 Vital Signs Last 24 Hour Vital Signs Date Time Temp Pulse Resp B/P (MAP) Pulse Ox O2 Delivery O2 Flow Rate FiO2 12/31/17 20:34 99 Nasal Cannula 2.0 28 12/31/17 20:34 Nasal Cannula 2.0 28 12/31/17 20:33 113 18 Room Air 2.0 28 12/31/17 20:00 97.5 100 20 129/58 100 Nasal Cannula 2.0 97.5 12/31/17 16:07 98.1 113 18 126/66 Room Air 98.1 12/31/17 11:51 97.7 113 18 11/63 Room Air 97.7 12/31/17 09:32 113 135/77 12/31/17 09:20 Nasal Cannula 2.0 12/31/17 08:19 89 22 Nasal Cannula 2.0 28 12/31/17 08:19 99 Nasal Cannula 2.0 28 12/31/17 08:15 97.5 103 18 136/73 97 Room Air 97.5 12/31/17 04:00 96.6 96 20 143/68 96 96.6 Labs Laboratory Tests Test 12/31/17 04:00 White Blood Count 10.4 K/UL (4.8-10.8) Red Blood Count 4.19 M/UL (4.20-5.40) L Hemoglobin 11.3 G/DL (12.0-16.0) L Hematocrit 35.8 % (37.0-47.0) L Mean Corpuscular Volume 85 FL (80-99) Mean Corpuscular Hemoglobin 26.9 PG (27.0-31.0) L Mean Corpuscular Hemoglobin Concent 31.5 G/DL (32.0-36.0) L Red Cell Distribution Width 14.7 % (11.6-14.8) Platelet Count 129 K/UL (150-450) L Mean Platelet Volume 6.5 FL (6.5-10.1) Neutrophils (%) (Auto) 63.0 % (45.0-75.0) Lymphocytes (%) (Auto) 29.1 % (20.0-45.0) Monocytes (%) (Auto) 7.5 % (1.0-10.0) Eosinophils (%) (Auto) 0.2 % (0.0-3.0) Basophils (%) (Auto) 0.3 % (0.0-2.0) Sodium Level 143 MMOL/L (136-145) Potassium Level 3.8 MMOL/L (3.5-5.1) Chloride Level 99 MMOL/L (98-107) Carbon Dioxide Level 41 MMOL/L (21-32) *H Anion Gap 3 mmol/L (5-15) L Blood Urea Nitrogen 23 mg/dL (7-18) H Creatinine 0.8 MG/DL (0.55-1.30) Estimat Glomerular Filtration Rate > 60 mL/min (>60) Glucose Level 214 MG/DL (74-106) H Calcium Level 9.1 MG/DL (8.5-10.1) Total Bilirubin 0.7 MG/DL (0.2-1.0) Aspartate Amino Transf (AST/SGOT) 24 U/L (15-37) Alanine Aminotransferase (ALT/SGPT) 59 U/L (12-78) Alkaline Phosphatase 43 U/L (46-116) L Pro-B-Type Natriuretic Peptide 469 pg/mL (0-125) H Total Protein 6.0 G/DL (6.4-8.2) L Albumin 2.9 G/DL (3.4-5.0) L Globulin 3.1 g/dL Albumin/Globulin Ratio 0.9 (1.0-2.7) L Medications Current Medications Medications (Trade) Dose Ordered Sig/Hansel Route PRN Reason Start Time Stop Time Status Last Admin Dose Admin Acetaminophen (Tylenol) 650 mg Q4H PRN ORAL T>100.5 12/30/17 07:31 01/19/18 15:30 12/31/17 03:55 Amlodipine Besylate (Norvasc) 5 mg DAILY ORAL 12/27/17 09:00 01/20/18 08:59 12/31/17 09:32 Chlorhexidine Gluconate (Jazzmine-Hex 2%) 1 applic DAILY@1999 TOPIC 12/26/17 20:00 01/20/18 19:59 12/31/17 20:37 Clonidine HCl (Catapres Tab) 0.1 mg Q4H PRN ORAL sbp more than 160mmHg 12/26/17 15:31 01/23/18 15:30 Dextrose (Dextrose 50%) 25 ml STAT PRN IV Blood Sugar btwn 60-69 mg/dL 12/26/17 15:33 01/25/18 15:32 12/26/17 21:55 Dextrose (Dextrose 50%) 50 ml STAT PRN IV BS less than 60mg/dl 12/26/17 15:34 01/25/18 15:33 Docusate Sodium (Colace) 100 mg THREE TIMES A DAY ORAL 12/26/17 18:00 01/22/18 09:59 12/31/17 18:32 Heparin Sodium (Porcine) (Heparin 5000 units/ml) 5,000 units EVERY 12 HOURS SUBQ 12/26/17 21:00 01/20/18 08:59 12/31/17 20:38 Insulin Aspart (NovoLOG) BEFORE MEALS AND HS SUBQ 12/26/17 16:30 01/22/18 20:59 12/31/17 20:39 Insulin Aspart (NovoLOG) 10 units NOVOTIAC SUBQ 12/31/17 11:50 01/23/18 11:49 12/31/17 17:03 Insulin Detemir (Levemir) 15 units EVERY 12 HOURS SUBQ 12/26/17 21:00 01/23/18 20:59 12/31/17 20:38 Methylprednisolone Sodium Succinate (Solu-MEDROL) 60 mg DAILY IV 12/27/17 09:00 01/20/18 00:00 12/31/17 09:31 Mineral Oil (Fleet's Mineral Oil Enema) 133 ml EVERY OTHER DAY RECTAL 12/27/17 09:00 01/22/18 09:59 Nitroglycerin (Ntg) 0.4 mg Q5M X 3 DOSES PRN SL Prn Chest Pain 12/26/17 15:59 01/19/18 15:58 Ondansetron HCl (Zofran) 4 mg Q6H PRN IVP Nausea & Vomiting 12/26/17 16:00 01/19/18 15:59 Polyethylene Glycol (Miralax) 17 gm BEDTIME ORAL 12/26/17 21:00 01/22/18 20:59 12/30/17 20:30 Promethazine HCl/ Codeine (Phenergan with Codeine) 5 ml Q6H PRN ORAL cough 12/26/17 16:01 01/23/18 16:00 Risperidone (RisperDAL) 1 mg BID ORAL 12/26/17 18:00 01/20/18 13:14 12/31/17 18:32 Sennosides (Senokot) 1 tab DAILY ORAL 12/27/17 09:00 01/22/18 14:59 12/31/17 09:33 Vitamin A/Vitamin D (A & D Oint) 1 applic EVERY 12 HOURS TOPIC 12/26/17 21:00 01/20/18 22:59 12/31/17 20:40 Grisel Jay M.D. Jan 01, 2018 00:04
[2018-01-01 04:00] VITALS: BP 138/62
[2018-01-01] MEDS: NovoLOG Insulin Flexpen SUBQ SCH ×7 (06:30→20:19)
--- NOTE | 2018-01-01 07:37 | General Progress Note ---
Assessment/Plan Problem List: (1) Diabetes mellitus out of control ICD Codes: E11.65 - Type 2 diabetes mellitus with hyperglycemia SNOMED: 50096954, 444686651 (2) COPD (chronic obstructive pulmonary disease) ICD Codes: J44.9 - Chronic obstructive pulmonary disease, unspecified SNOMED: 96081091 (3) Acute and chronic respiratory failure ICD Codes: J96.20 - Acute and chronic respiratory failure, unspecified whether with hypoxia or hypercapnia SNOMED: 13268082 Assessment/Plan continue Levemir 15 units bid increase Novolog to 12 units ac tid continue NISS Subjective Allergies: Coded Allergies: Shrimp (Unverified Allergy, Unknown, 12/04/17) All Systems: reviewed and negative except above Subjective events noted glucose values improved Objective Last 24 Hour Vital Signs Date Time Temp Pulse Resp B/P (MAP) Pulse Ox O2 Delivery O2 Flow Rate FiO2 01/01/18 04:00 96.6 95 20 138/62 98 Nasal Cannula 2.0 96.6 01/01/18 00:00 98.6 81 20 103/74 100 Nasal Cannula 2.0 98.6 12/31/17 20:34 99 Nasal Cannula 2.0 28 12/31/17 20:34 Nasal Cannula 2.0 28 12/31/17 20:33 113 18 Room Air 2.0 28 12/31/17 20:00 97.5 100 20 129/58 100 Nasal Cannula 2.0 97.5 12/31/17 16:07 98.1 113 18 126/66 Room Air 98.1 12/31/17 11:51 97.7 113 18 11/63 Room Air 97.7 12/31/17 09:32 113 135/77 12/31/17 09:20 Nasal Cannula 2.0 12/31/17 08:19 89 22 Nasal Cannula 2.0 28 12/31/17 08:19 99 Nasal Cannula 2.0 28 12/31/17 08:15 97.5 103 18 136/73 97 Room Air 97.5 Intake and Output 12/31/17 01/01/18 18:59 06:59 Intake Total 480 ml 240 ml Balance 480 ml 240 ml Intake Oral 480 ml 240 ml # Voids 3 Height (Feet): 5 Height (Inches): 4.00 Weight (Pounds): 145 General Appearance: no apparent distress EENT: pale conjunctivae Neck: normal alignment Cardiovascular: normal rate Respiratory/Chest: decreased breath sounds Abdomen: normal bowel sounds Edema: 1+ Arm (L), 1+ Arm (R), 1+ Leg (L), 1+ Leg (R), 1+ Pedal (L), 1+ Pedal ( R), 1+ Generalized Objective Current Medications Medications (Trade) Dose Ordered Sig/Hansel Route PRN Reason Start Time Stop Time Status Last Admin Dose Admin Acetaminophen (Tylenol) 650 mg Q4H PRN ORAL T>100.5 12/30/17 07:31 01/19/18 15:30 12/31/17 03:55 Amlodipine Besylate (Norvasc) 5 mg DAILY ORAL 12/27/17 09:00 01/20/18 08:59 12/31/17 09:32 Chlorhexidine Gluconate (Jazzmine-Hex 2%) 1 applic DAILY@2000 TOPIC 12/26/17 20:00 01/20/18 19:59 12/31/17 20:37 Clonidine HCl (Catapres Tab) 0.1 mg Q4H PRN ORAL sbp more than 160mmHg 12/26/17 15:31 01/23/18 15:30 Dextrose (Dextrose 50%) 25 ml STAT PRN IV Blood Sugar btwn 60-69 mg/dL 12/26/17 15:33 01/25/18 15:32 12/26/17 21:55 Dextrose (Dextrose 50%) 50 ml STAT PRN IV BS less than 60mg/dl 12/26/17 15:34 01/25/18 15:33 Docusate Sodium (Colace) 100 mg THREE TIMES A DAY ORAL 12/26/17 18:00 01/22/18 09:59 12/31/17 18:32 Heparin Sodium (Porcine) (Heparin 5000 units/ml) 5,000 units EVERY 12 HOURS SUBQ 12/26/17 21:00 01/20/18 08:59 12/31/17 20:38 Insulin Aspart (NovoLOG) BEFORE MEALS AND HS SUBQ 12/26/17 16:30 01/22/18 20:59 12/31/17 20:39 Insulin Aspart (NovoLOG) 10 units NOVOTIAC SUBQ 12/31/17 11:50 01/23/18 11:49 01/01/18 06:33 Insulin Detemir (Levemir) 15 units EVERY 12 HOURS SUBQ 12/26/17 21:00 01/23/18 20:59 12/31/17 20:38 Methylprednisolone Sodium Succinate (Solu-MEDROL) 60 mg DAILY IV 12/27/17 09:00 01/20/18 00:00 12/31/17 09:31 Mineral Oil (Fleet's Mineral Oil Enema) 133 ml EVERY OTHER DAY RECTAL 12/27/17 09:00 01/22/18 09:59 Nitroglycerin (Ntg) 0.4 mg Q5M X 3 DOSES PRN SL Prn Chest Pain 12/26/17 15:59 01/19/18 15:58 Ondansetron HCl (Zofran) 4 mg Q6H PRN IVP Nausea & Vomiting 12/26/17 16:00 01/19/18 15:59 Polyethylene Glycol (Miralax) 17 gm BEDTIME ORAL 12/26/17 21:00 01/22/18 20:59 12/30/17 20:30 Promethazine HCl/ Codeine (Phenergan with Codeine) 5 ml Q6H PRN ORAL cough 12/26/17 16:01 01/23/18 16:00 Risperidone (RisperDAL) 1 mg BID ORAL 12/26/17 18:00 01/20/18 13:14 12/31/17 18:32 Sennosides (Senokot) 1 tab DAILY ORAL 12/27/17 09:00 01/22/18 14:59 12/31/17 09:33 Vitamin A/Vitamin D (A & D Oint) 1 applic EVERY 12 HOURS TOPIC 12/26/17 21:00 01/20/18 22:59 12/31/17 20:40 Item Value Date Time Bedside Blood Glucose 102 mg/dl 01/01/18 0633 Bedside Blood Glucose 340 mg/dl H 12/31/17 2100 Bedside Blood Glucose 411 mg/dl H 12/31/17 1705 Bedside Blood Glucose 277 mg/dl H 12/31/17 1220 Bedside Blood Glucose 266 mg/dl H 12/31/17 1057 Bedside Blood Glucose 243 mg/dl H 12/31/17 0630 FEMI MCKEON Jan 01, 2018 07:37
[2018-01-01 08:00] VITALS: BP 111/67
[2018-01-01] MEDS: Solu-MEDROL 125mg Inj IV SCH (08:29)
[2018-01-01] MEDS: Vitamin A&D Oint 2oz Tube TOPIC SCH ×2 (09:00→20:18)
[2018-01-01] MEDS: Heparin 5000 units/ml inj SUBQ SCH ×2 (10:13→20:16)
[2018-01-01] MEDS: Docusate 100mg cap ORAL SCH ×3 (10:22→16:16)
[2018-01-01] MEDS: Levemir Flexpen SUBQ SCH ×2 (10:31→20:17)
[2018-01-01] MEDS: Sennosides 8.6mg ORAL SCH (10:33)
[2018-01-01 12:00] VITALS: BP 126/65
--- NOTE | 2018-01-01 13:22 | Infectious Diseases Prog Note ---
Assessment/Plan Assessment/Plan Assessment: Acute hypoxic resp failure improved COPD exacerbation- -CXR: No acute disease Afebrile, no leukocytosis Recent acute hypoxic failure and PNA 11/2015 -sp cx 12/04: E.coli (davila S), P. mirabilis (davila S) Influenza sc : Neg transaminitis Hx of Hep C Hep panel : A Imm HIV Neg hx of trach s/p removal COPD Dm2 HTN NH resident Plan: - Monitor pt off of AB Rx 12/24 SP Levaquin # 5 /5 for COPD exacerbation and monitor pt off of AB Rx -12/10 SP Cefepime #7 -12/06 SP Vanco #3 -Monitor CBC/BMP, temperatures -aspiration precautions Hem fup, re TCP Hep C fup as out pt Subjective Allergies: Coded Allergies: Shrimp (Unverified Allergy, Unknown, 12/04/17) Subjective comfortable Objective Vital Signs Last 24 Hour Vital Signs Date Time Temp Pulse Resp B/P (MAP) Pulse Ox O2 Delivery O2 Flow Rate FiO2 01/01/18 10:19 96 124/64 01/01/18 08:00 97.3 70 20 111/67 100 Nasal Cannula 2.0 97.3 01/01/18 04:00 96.6 95 20 138/62 98 Nasal Cannula 2.0 96.6 01/01/18 00:00 98.6 81 20 103/74 100 Nasal Cannula 2.0 98.6 12/31/17 20:34 99 Nasal Cannula 2.0 28 12/31/17 20:34 Nasal Cannula 2.0 28 12/31/17 20:33 113 18 Room Air 2.0 28 12/31/17 20:00 97.5 100 20 129/58 100 Nasal Cannula 2.0 97.5 12/31/17 16:07 98.1 113 18 126/66 Room Air 98.1 Height (Feet): 5 Height (Inches): 4.00 Weight (Pounds): 145 HEENT: mucous membranes moist Respiratory/Chest: lungs clear Cardiovascular: normal rate Abdomen: normal bowel sounds Current Medications Medications (Trade) Dose Ordered Sig/Hansel Route PRN Reason Start Time Stop Time Status Last Admin Dose Admin Acetaminophen (Tylenol) 650 mg Q4H PRN ORAL T>100.5 12/30/17 07:31 01/19/18 15:30 12/31/17 03:55 Amlodipine Besylate (Norvasc) 5 mg DAILY ORAL 12/27/17 09:00 01/20/18 08:59 01/01/18 10:19 Chlorhexidine Gluconate (Jazzmine-Hex 2%) 1 applic DAILY@2000 TOPIC 12/26/17 20:00 01/20/18 19:59 12/31/17 20:37 Clonidine HCl (Catapres Tab) 0.1 mg Q4H PRN ORAL sbp more than 160mmHg 12/26/17 15:31 01/23/18 15:30 Dextrose (Dextrose 50%) 25 ml STAT PRN IV Blood Sugar btwn 60-69 mg/dL 12/26/17 15:33 01/25/18 15:32 12/26/17 21:55 Dextrose (Dextrose 50%) 50 ml STAT PRN IV BS less than 60mg/dl 12/26/17 15:34 01/25/18 15:33 Docusate Sodium (Colace) 100 mg THREE TIMES A DAY ORAL 12/26/17 18:00 01/22/18 09:59 01/01/18 10:22 Heparin Sodium (Porcine) (Heparin 5000 units/ml) 5,000 units EVERY 12 HOURS SUBQ 12/26/17 21:00 01/20/18 08:59 01/01/18 10:13 Insulin Aspart (NovoLOG) BEFORE MEALS AND HS SUBQ 12/26/17 16:30 01/22/18 20:59 12/31/17 20:39 Insulin Aspart (NovoLOG) 12 units NOVOTIAC SUBQ 01/01/18 11:50 01/23/18 11:49 Insulin Detemir (Levemir) 15 units EVERY 12 HOURS SUBQ 12/26/17 21:00 01/23/18 20:59 01/01/18 10:31 Methylprednisolone Sodium Succinate (Solu-MEDROL) 60 mg DAILY IV 12/27/17 09:00 01/20/18 00:00 01/01/18 08:29 Mineral Oil (Fleet's Mineral Oil Enema) 133 ml EVERY OTHER DAY RECTAL 12/27/17 09:00 01/22/18 09:59 Nitroglycerin (Ntg) 0.4 mg Q5M X 3 DOSES PRN SL Prn Chest Pain 12/26/17 15:59 01/19/18 15:58 Ondansetron HCl (Zofran) 4 mg Q6H PRN IVP Nausea & Vomiting 12/26/17 16:00 01/19/18 15:59 Polyethylene Glycol (Miralax) 17 gm BEDTIME ORAL 12/26/17 21:00 01/22/18 20:59 12/30/17 20:30 Promethazine HCl/ Codeine (Phenergan with Codeine) 5 ml Q6H PRN ORAL cough 12/26/17 16:01 01/23/18 16:00 Risperidone (RisperDAL) 1 mg BID ORAL 12/26/17 18:00 01/20/18 13:14 01/01/18 10:21 Sennosides (Senokot) 1 tab DAILY ORAL 12/27/17 09:00 01/22/18 14:59 01/01/18 10:33 Vitamin A/Vitamin D (A & D Oint) 1 applic EVERY 12 HOURS TOPIC 12/26/17 21:00 01/20/18 22:59 01/01/18 09:00 Steve Griffin MD Jan 01, 2018 13:22
--- NOTE | 2018-01-01 15:03 | Cardiology Progress Note ---
Assessment/Plan Assessment/Plan 1. Sinus tachycardia with premature atrial complexes. 2. Chronic obstructive pulmonary disease. 3. Diabetes mellitus. 4. Hypertension history tle sinu tachy now off tele i dcd beta agonist inhalers hr seem ok ekg snisu with pac ? mat cxr yest plerural effusion Subjective Cardiovascular: Denies: chest pain Respiratory: Reports: cough, shortness of breath Gastrointestinal/Abdominal: Denies: abdomen distended Genitourinary: Denies: burning Objective Last 24 Hour Vital Signs Date Time Temp Pulse Resp B/P (MAP) Pulse Ox O2 Delivery O2 Flow Rate FiO2 01/01/18 12:00 97.7 20 126/65 98 Nasal Cannula 2.0 97.7 01/01/18 10:19 96 124/64 01/01/18 08:00 97.3 70 20 111/67 100 Nasal Cannula 2.0 97.3 01/01/18 04:00 96.6 95 20 138/62 98 Nasal Cannula 2.0 96.6 01/01/18 00:00 98.6 81 20 103/74 100 Nasal Cannula 2.0 98.6 12/31/17 20:34 99 Nasal Cannula 2.0 28 12/31/17 20:34 Nasal Cannula 2.0 28 12/31/17 20:33 113 18 Room Air 2.0 28 12/31/17 20:00 97.5 100 20 129/58 100 Nasal Cannula 2.0 97.5 12/31/17 16:07 98.1 113 18 126/66 Room Air 98.1 General Appearance: alert Neck: supple Cardiovascular: tachycardia Respiratory/Chest: rhonchi - bilaterally Abdomen: normal bowel sounds, non tender, soft Extremities: no swelling Intake and Output 12/31/17 01/01/18 19:00 07:00 Intake Total 480 ml 240 ml Balance 480 ml 240 ml Intake Oral 480 ml 240 ml # Voids 3 STEVO WAGNER Jan 01, 2018 15:03
--- NOTE | 2018-01-01 16:03 | Pulmonology Progress Note ---
Assessment/Plan Problems: (1) Acute and chronic respiratory failure (2) COPD (chronic obstructive pulmonary disease) (3) Hepatitis C Assessment/Plan improving no new events no new complains respiratory treatment check cultures BP controlled on Levemir 11 BID dc planning in progress Subjective ROS Limited/Unobtainable: No Constitutional: Reports: no symptoms HEENT: Repors: no symptoms Respiratory: Reports: no symptoms Allergies: Coded Allergies: Shrimp (Unverified Allergy, Unknown, 12/04/17) Objective Last 24 Hour Vital Signs Date Time Temp Pulse Resp B/P (MAP) Pulse Ox O2 Delivery O2 Flow Rate FiO2 01/01/18 12:00 97.7 20 126/65 98 Nasal Cannula 2.0 97.7 01/01/18 10:19 96 124/64 01/01/18 08:00 97.3 70 20 111/67 100 Nasal Cannula 2.0 97.3 01/01/18 04:00 96.6 95 20 138/62 98 Nasal Cannula 2.0 96.6 01/01/18 00:00 98.6 81 20 103/74 100 Nasal Cannula 2.0 98.6 12/31/17 20:34 99 Nasal Cannula 2.0 28 12/31/17 20:34 Nasal Cannula 2.0 28 12/31/17 20:33 113 18 Room Air 2.0 28 12/31/17 20:00 97.5 100 20 129/58 100 Nasal Cannula 2.0 97.5 12/31/17 16:07 98.1 113 18 126/66 Room Air 98.1 Intake and Output 12/31/17 01/01/18 19:00 07:00 Intake Total 480 ml 240 ml Balance 480 ml 240 ml Intake Oral 480 ml 240 ml # Voids 3 Objective General Appearance: cachetic HEENT: normocephalic Respiratory/Chest: chest wall non-tender, lungs clear Breasts: no masses Cardiovascular: normal peripheral pulses, normal rate Abdomen: normal bowel sounds, soft, non tender Extremities: no cyanosis, no clubbing 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, no motor/sensory deficits Lymphatic: no neck adenopathy Current Medications Medications (Trade) Dose Ordered Sig/Hansel Route PRN Reason Start Time Stop Time Status Last Admin Dose Admin Acetaminophen (Tylenol) 650 mg Q4H PRN ORAL T>100.5 12/30/17 07:31 01/19/18 15:30 12/31/17 03:55 Amlodipine Besylate (Norvasc) 5 mg DAILY ORAL 12/27/17 09:00 01/20/18 08:59 01/01/18 10:19 Chlorhexidine Gluconate (Jazzmine-Hex 2%) 1 applic DAILY@2000 TOPIC 12/26/17 20:00 01/20/18 19:59 12/31/17 20:37 Clonidine HCl (Catapres Tab) 0.1 mg Q4H PRN ORAL sbp more than 160mmHg 12/26/17 15:31 01/23/18 15:30 Dextrose (Dextrose 50%) 25 ml STAT PRN IV Blood Sugar btwn 60-69 mg/dL 12/26/17 15:33 01/25/18 15:32 12/26/17 21:55 Dextrose (Dextrose 50%) 50 ml STAT PRN IV BS less than 60mg/dl 12/26/17 15:34 01/25/18 15:33 Docusate Sodium (Colace) 100 mg THREE TIMES A DAY ORAL 12/26/17 18:00 01/22/18 09:59 01/01/18 10:22 Heparin Sodium (Porcine) (Heparin 5000 units/ml) 5,000 units EVERY 12 HOURS SUBQ 12/26/17 21:00 01/20/18 08:59 01/01/18 10:13 Insulin Aspart (NovoLOG) BEFORE MEALS AND HS SUBQ 12/26/17 16:30 01/22/18 20:59 12/31/17 20:39 Insulin Aspart (NovoLOG) 12 units NOVOTIAC SUBQ 01/01/18 11:50 01/23/18 11:49 Insulin Detemir (Levemir) 15 units EVERY 12 HOURS SUBQ 12/26/17 21:00 01/23/18 20:59 01/01/18 10:31 Methylprednisolone Sodium Succinate (Solu-MEDROL) 60 mg DAILY IV 12/27/17 09:00 01/20/18 00:00 01/01/18 08:29 Mineral Oil (Fleet's Mineral Oil Enema) 133 ml EVERY OTHER DAY RECTAL 12/27/17 09:00 01/22/18 09:59 Nitroglycerin (Ntg) 0.4 mg Q5M X 3 DOSES PRN SL Prn Chest Pain 12/26/17 15:59 01/19/18 15:58 Ondansetron HCl (Zofran) 4 mg Q6H PRN IVP Nausea & Vomiting 12/26/17 16:00 01/19/18 15:59 Polyethylene Glycol (Miralax) 17 gm BEDTIME ORAL 12/26/17 21:00 01/22/18 20:59 12/30/17 20:30 Promethazine HCl/ Codeine (Phenergan with Codeine) 5 ml Q6H PRN ORAL cough 12/26/17 16:01 01/23/18 16:00 Risperidone (RisperDAL) 1 mg BID ORAL 12/26/17 18:00 01/20/18 13:14 01/01/18 10:21 Sennosides (Senokot) 1 tab DAILY ORAL 12/27/17 09:00 01/22/18 14:59 01/01/18 10:33 Vitamin A/Vitamin D (A & D Oint) 1 applic EVERY 12 HOURS TOPIC 12/26/17 21:00 01/20/18 22:59 01/01/18 09:00 Leni Watts MD Jan 01, 2018 16:03
[2018-01-01 16:10] VITALS: BP_SYST 112; BP_SYST 140; BP_DIAS 83
[2018-01-01 19:25] VITALS: BP 132/97
[2018-01-01] MEDS: Dyna-Hex 2% Top Sol 2oz TOPIC SCH (20:16)
[2018-01-01] MEDS: Miralax 17gm pkt ORAL SCH (20:16)
--- NOTE | 2018-01-01 23:50 | General Progress Note ---
Assessment/Plan Assessment/Plan 1. Thrombocytopenia, secondary to hepatitis C --> Hep A and C antibody test (+) --> Improving. Transfuse if platelets <20k 2. Leukopenia, likely secondary to hepatitis C, currently improved. --> No leukocytosis is noted. The patient has been afebrile. --> Resolved at this time. 3. Anemia due to underlying chronic disease. --> Continue to closely monitor. --> Blood transfusion not required unless symptomatic or hgb <7 --> Reviewed anemia workup. Iron 110, TIBC 230, Ferritin 90, B12 821, Folate 6.6 , TSH 1.4 4. Acute on hypoxic respiratory failure, status post tracheostomy, improved. 5. Hepatitis C. Management as an outpatient. --> Appreciate Infectious Disease service evaluation. 6. Hypertension. Systolic blood pressure goal less than 140. --> Improved. 7. COPD. DC Planning. Subjective Date patient seen: Jan 01, 2018 Constitutional: Denies: no symptoms, chills, diaphoresis, fever, malaise, weakness, other HEENT: Denies: no symptoms, eye pain, blurred vision, tearing, double vision, ear pain, ear discharge, nose pain, nose congestion, throat pain, throat swelling, mouth pain, mouth swelling, other Cardiovascular: Denies: no symptoms, chest pain, edema, irregular heart rate, lightheadedness, palpitations, syncope, other Respiratory: Denies: no symptoms, cough, orthopnea, shortness of breath, SOB with excertion, SOB at rest, sputum, stridor, wheezing, other Gastrointestinal/Abdominal: Denies: no symptoms, abdomen distended, abdominal pain, black stools, tarry stools, blood in stool, constipated, diarrhea, difficulty swallowing, nausea, poor appetite, poor fluid intake, rectal bleeding , vomiting, other Genitourinary: Denies: no symptoms, burning, discharge, frequency, flank pain, hematuria, incontinence, pain, urgency, other Neurologic/Psychiatric: Denies: no symptoms, anxiety, depressed, emotional problems, headache, numbness, paresthesia, pre-existing deficit, seizure, tingling, tremors, weakness, other Hematologic/Lymphatic: Reports: anemia Allergies: Coded Allergies: Shrimp (Unverified Allergy, Unknown, 12/04/17) Subjective Improving. No complaints of pain. No fever. Objective Last 24 Hour Vital Signs Date Time Temp Pulse Resp B/P (MAP) Pulse Ox O2 Delivery O2 Flow Rate FiO2 01/01/18 19:25 98.2 102 20 132/97 99 Nasal Cannula 98.2 01/01/18 19:00 87 18 Nasal Cannula 2.0 28 01/01/18 19:00 96 Nasal Cannula 2.0 28 01/01/18 19:00 Nasal Cannula 2.0 28 01/01/18 16:14 112 01/01/18 16:10 96.0 22 112/83 99 Nasal Cannula 2.0 96.0 01/01/18 12:00 97.7 20 126/65 98 Nasal Cannula 2.0 97.7 01/01/18 10:19 96 124/64 01/01/18 08:00 97.3 70 20 111/67 100 Nasal Cannula 2.0 97.3 01/01/18 04:00 96.6 95 20 138/62 98 Nasal Cannula 2.0 96.6 01/01/18 00:00 98.6 81 20 103/74 100 Nasal Cannula 2.0 98.6 Intake and Output 12/31/17 01/01/18 19:00 07:00 Intake Total 480 ml 240 ml Balance 480 ml 240 ml Intake Oral 480 ml 240 ml # Voids 3 Height (Feet): 5 Height (Inches): 4.00 Weight (Pounds): 145 General Appearance: no apparent distress Respiratory/Chest: decreased breath sounds PEPITO PRADO Jan 01, 2018 23:50
[2018-01-02 00:07] VITALS: BP 142/80
[2018-01-02 04:11] VITALS: BP 123/66
[2018-01-02] MEDS: NovoLOG Insulin Flexpen SUBQ SCH ×7 (05:46→21:08)
[2018-01-02 08:00] VITALS: BP 115/68
[2018-01-02] MEDS: Docusate 100mg cap ORAL SCH ×3 (08:15→18:43)
[2018-01-02] MEDS: Sennosides 8.6mg ORAL SCH (08:16)
[2018-01-02] MEDS: Fleet's Mineral Oil Enema RECTAL SCH (08:16)
[2018-01-02] MEDS: Solu-MEDROL 125mg Inj IV SCH (08:16)
[2018-01-02] MEDS: Heparin 5000 units/ml inj SUBQ SCH ×2 (08:16→21:06)
[2018-01-02] MEDS: Levemir Flexpen SUBQ SCH ×2 (08:22→21:11)
[2018-01-02] MEDS: Vitamin A&D Oint 2oz Tube TOPIC SCH ×2 (08:23→21:12)
[2018-01-02 12:00] VITALS: BP 115/75
--- NOTE | 2018-01-02 12:34 | Infectious Diseases Prog Note ---
Assessment/Plan Assessment/Plan Assessment: Acute hypoxic resp failure improved COPD exacerbation- -CXR: No acute disease Afebrile, no leukocytosis Recent acute hypoxic failure and PNA 11/2015 -sp cx 12/04: E.coli (davila S), P. mirabilis (davila S) Influenza sc : Neg transaminitis Hx of Hep C Hep panel : A Imm HIV Neg hx of trach s/p removal COPD Dm2 HTN NH resident Plan: - Monitor pt off of AB Rx 12/24 SP Levaquin # 5 /5 for COPD exacerbation and monitor pt off of AB Rx -12/10 SP Cefepime #7 -12/06 SP Vanco #3 -Monitor CBC/BMP, temperatures -aspiration precautions Hem fup, re TCP Hep C fup nad probable need for Hep Vax as out pt Subjective Allergies: Coded Allergies: Shrimp (Unverified Allergy, Unknown, 12/04/17) Subjective comfortable Objective Vital Signs Last 24 Hour Vital Signs Date Time Temp Pulse Resp B/P (MAP) Pulse Ox O2 Delivery O2 Flow Rate FiO2 01/02/18 12:00 97.7 80 22 115/75 98 97.7 01/02/18 08:14 70 115/68 01/02/18 08:00 96.0 70 22 115/68 99 96.0 01/02/18 07:45 99 Nasal Cannula 2.0 28 01/02/18 07:45 Nasal Cannula 2.0 28 01/02/18 04:11 96.8 64 20 123/66 100 Room Air 96.8 01/02/18 00:07 98.2 82 20 142/80 100 Nasal Cannula 98.2 01/01/18 19:25 98.2 102 20 132/97 99 Nasal Cannula 98.2 01/01/18 19:00 87 18 Nasal Cannula 2.0 28 01/01/18 19:00 96 Nasal Cannula 2.0 28 01/01/18 19:00 Nasal Cannula 2.0 28 01/01/18 16:14 112 01/01/18 16:10 96.0 22 112/83 99 Nasal Cannula 2.0 96.0 Height (Feet): 5 Height (Inches): 4.00 Weight (Pounds): 147 HEENT: anicteric Respiratory/Chest: normal breath sounds Cardiovascular: regularly irregular Abdomen: no organomegaly Current Medications Medications (Trade) Dose Ordered Sig/Hansel Route PRN Reason Start Time Stop Time Status Last Admin Dose Admin Acetaminophen (Tylenol) 650 mg Q4H PRN ORAL T>100.5 12/30/17 07:31 01/19/18 15:30 01/02/18 08:12 Amlodipine Besylate (Norvasc) 5 mg DAILY ORAL 12/27/17 09:00 01/20/18 08:59 01/02/18 08:14 Chlorhexidine Gluconate (Jazzmine-Hex 2%) 1 applic DAILY@2000 TOPIC 12/26/17 20:00 01/20/18 19:59 01/01/18 20:16 Clonidine HCl (Catapres Tab) 0.1 mg Q4H PRN ORAL sbp more than 160mmHg 12/26/17 15:31 01/23/18 15:30 Dextrose (Dextrose 50%) 25 ml STAT PRN IV Blood Sugar btwn 60-69 mg/dL 12/26/17 15:33 01/25/18 15:32 12/26/17 21:55 Dextrose (Dextrose 50%) 50 ml STAT PRN IV BS less than 60mg/dl 12/26/17 15:34 01/25/18 15:33 Docusate Sodium (Colace) 100 mg THREE TIMES A DAY ORAL 12/26/17 18:00 01/22/18 09:59 01/01/18 10:22 Heparin Sodium (Porcine) (Heparin 5000 units/ml) 5,000 units EVERY 12 HOURS SUBQ 12/26/17 21:00 01/20/18 08:59 01/01/18 10:13 Insulin Aspart (NovoLOG) BEFORE MEALS AND HS SUBQ 12/26/17 16:30 01/22/18 20:59 01/02/18 11:46 Insulin Aspart (NovoLOG) 12 units NOVOTIAC SUBQ 01/01/18 11:50 01/23/18 11:49 01/02/18 11:46 Insulin Detemir (Levemir) 15 units EVERY 12 HOURS SUBQ 12/26/17 21:00 01/23/18 20:59 01/02/18 08:22 Methylprednisolone Sodium Succinate (Solu-MEDROL) 60 mg DAILY IV 12/27/17 09:00 01/20/18 00:00 01/02/18 08:16 Mineral Oil (Fleet's Mineral Oil Enema) 133 ml EVERY OTHER DAY RECTAL 12/27/17 09:00 01/22/18 09:59 Nitroglycerin (Ntg) 0.4 mg Q5M X 3 DOSES PRN SL Prn Chest Pain 12/26/17 15:59 01/19/18 15:58 Ondansetron HCl (Zofran) 4 mg Q6H PRN IVP Nausea & Vomiting 12/26/17 16:00 01/19/18 15:59 Polyethylene Glycol (Miralax) 17 gm BEDTIME ORAL 12/26/17 21:00 01/22/18 20:59 12/30/17 20:30 Promethazine HCl/ Codeine (Phenergan with Codeine) 5 ml Q6H PRN ORAL cough 12/26/17 16:01 01/23/18 16:00 Risperidone (RisperDAL) 1 mg BID ORAL 12/26/17 18:00 01/20/18 13:14 01/02/18 08:13 Sennosides (Senokot) 1 tab DAILY ORAL 12/27/17 09:00 01/22/18 14:59 01/01/18 10:33 Vitamin A/Vitamin D (A & D Oint) 1 applic EVERY 12 HOURS TOPIC 12/26/17 21:00 01/20/18 22:59 01/02/18 08:23 Steve Griffin MD Jan 02, 2018 12:34
[2018-01-02 16:00] VITALS: BP 115/69
--- NOTE | 2018-01-02 18:41 | General Progress Note ---
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 no agitation Objective Last 24 Hour Vital Signs Date Time Temp Pulse Resp B/P (MAP) Pulse Ox O2 Delivery O2 Flow Rate FiO2 01/02/18 16:00 97.9 110 20 115/69 100 97.9 01/02/18 12:00 97.7 80 22 115/75 98 97.7 01/02/18 08:14 70 115/68 01/02/18 08:00 96.0 70 22 115/68 99 96.0 01/02/18 07:45 99 Nasal Cannula 2.0 28 01/02/18 07:45 Nasal Cannula 2.0 28 01/02/18 04:11 96.8 64 20 123/66 100 Room Air 96.8 01/02/18 00:07 98.2 82 20 142/80 100 Nasal Cannula 98.2 01/01/18 19:25 98.2 102 20 132/97 99 Nasal Cannula 98.2 01/01/18 19:00 87 18 Nasal Cannula 2.0 28 01/01/18 19:00 96 Nasal Cannula 2.0 28 01/01/18 19:00 Nasal Cannula 2.0 28 Intake and Output 01/01/18 01/02/18 19:00 07:00 Intake Total 720 ml Balance 720 ml Intake Oral 720 ml # Voids 2 3 # Bowel Movements 1 1 Height (Feet): 5 Height (Inches): 4.00 Weight (Pounds): 147 Grisel Jay M.D. Jan 02, 2018 18:41
--- NOTE | 2018-01-02 19:46 | Pulmonology Progress Note ---
Assessment/Plan Problems: (1) Acute and chronic respiratory failure (2) COPD (chronic obstructive pulmonary disease) (3) Hepatitis C Assessment/Plan improving no new events no new complains respiratory treatment check cultures BP controlled on Levemir 11 BID difficult to find a place dc planning in progress Subjective ROS Limited/Unobtainable: No Constitutional: Reports: no symptoms HEENT: Repors: no symptoms Respiratory: Reports: no symptoms Allergies: Coded Allergies: Shrimp (Unverified Allergy, Unknown, 12/04/17) Objective Last 24 Hour Vital Signs Date Time Temp Pulse Resp B/P (MAP) Pulse Ox O2 Delivery O2 Flow Rate FiO2 01/02/18 16:00 Nasal Cannula 2.0 01/02/18 16:00 97.9 110 20 115/69 100 97.9 01/02/18 12:00 Nasal Cannula 2.0 01/02/18 12:00 97.7 80 22 115/75 98 97.7 01/02/18 08:14 70 115/68 01/02/18 08:00 96.0 70 22 115/68 99 96.0 01/02/18 08:00 Nasal Cannula 2.0 01/02/18 07:45 99 Nasal Cannula 2.0 28 01/02/18 07:45 Nasal Cannula 2.0 28 01/02/18 04:11 96.8 64 20 123/66 100 Room Air 96.8 01/02/18 00:07 98.2 82 20 142/80 100 Nasal Cannula 98.2 Intake and Output 01/01/18 01/02/18 19:00 07:00 Intake Total 720 ml Balance 720 ml Intake Oral 720 ml # Voids 2 3 # Bowel Movements 1 1 Objective General Appearance: cachetic HEENT: normocephalic Respiratory/Chest: chest wall non-tender, lungs clear Breasts: no masses Cardiovascular: normal peripheral pulses, normal rate Abdomen: normal bowel sounds, soft, non tender Extremities: no cyanosis, no clubbing 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, no motor/sensory deficits Lymphatic: no neck adenopathy Current Medications Medications (Trade) Dose Ordered Sig/Hansel Route PRN Reason Start Time Stop Time Status Last Admin Dose Admin Acetaminophen (Tylenol) 650 mg Q4H PRN ORAL T>100.5 12/30/17 07:31 01/19/18 15:30 01/02/18 08:12 Amlodipine Besylate (Norvasc) 5 mg DAILY ORAL 12/27/17 09:00 01/20/18 08:59 01/02/18 08:14 Chlorhexidine Gluconate (Jazzmine-Hex 2%) 1 applic DAILY@2000 TOPIC 12/26/17 20:00 01/20/18 19:59 01/01/18 20:16 Clonidine HCl (Catapres Tab) 0.1 mg Q4H PRN ORAL sbp more than 160mmHg 12/26/17 15:31 01/23/18 15:30 Dextrose (Dextrose 50%) 25 ml STAT PRN IV Blood Sugar btwn 60-69 mg/dL 12/26/17 15:33 01/25/18 15:32 12/26/17 21:55 Dextrose (Dextrose 50%) 50 ml STAT PRN IV BS less than 60mg/dl 12/26/17 15:34 01/25/18 15:33 Docusate Sodium (Colace) 100 mg THREE TIMES A DAY ORAL 12/26/17 18:00 01/22/18 09:59 01/02/18 18:43 Heparin Sodium (Porcine) (Heparin 5000 units/ml) 5,000 units EVERY 12 HOURS SUBQ 12/26/17 21:00 01/20/18 08:59 01/01/18 10:13 Insulin Aspart (NovoLOG) BEFORE MEALS AND HS SUBQ 12/26/17 16:30 01/22/18 20:59 01/02/18 11:46 Insulin Aspart (NovoLOG) 12 units NOVOTIAC SUBQ 01/01/18 11:50 01/23/18 11:49 01/02/18 11:46 Insulin Detemir (Levemir) 15 units EVERY 12 HOURS SUBQ 12/26/17 21:00 01/23/18 20:59 01/02/18 08:22 Methylprednisolone Sodium Succinate (Solu-MEDROL) 60 mg DAILY IV 12/27/17 09:00 01/20/18 00:00 01/02/18 08:16 Mineral Oil (Fleet's Mineral Oil Enema) 133 ml EVERY OTHER DAY RECTAL 12/27/17 09:00 01/22/18 09:59 Nitroglycerin (Ntg) 0.4 mg Q5M X 3 DOSES PRN SL Prn Chest Pain 12/26/17 15:59 01/19/18 15:58 Ondansetron HCl (Zofran) 4 mg Q6H PRN IVP Nausea & Vomiting 12/26/17 16:00 01/19/18 15:59 Polyethylene Glycol (Miralax) 17 gm BEDTIME ORAL 12/26/17 21:00 01/22/18 20:59 12/30/17 20:30 Promethazine HCl/ Codeine (Phenergan with Codeine) 5 ml Q6H PRN ORAL cough 12/26/17 16:01 01/23/18 16:00 Risperidone (RisperDAL) 1 mg BID ORAL 12/26/17 18:00 01/20/18 13:14 01/02/18 18:43 Sennosides (Senokot) 1 tab DAILY ORAL 12/27/17 09:00 01/22/18 14:59 01/01/18 10:33 Vitamin A/Vitamin D (A & D Oint) 1 applic EVERY 12 HOURS TOPIC 12/26/17 21:00 01/20/18 22:59 01/02/18 08:23 Leni Watts MD Jan 02, 2018 19:46
[2018-01-02 20:00] VITALS: BP 140/66
[2018-01-02] MEDS: Miralax 17gm pkt ORAL SCH (21:00)
[2018-01-02] MEDS: Dyna-Hex 2% Top Sol 2oz TOPIC SCH (21:05)
--- NOTE | 2018-01-02 22:47 | General Progress Note ---
Assessment/Plan Assessment/Plan 1. Thrombocytopenia, secondary to hepatitis C --> Hep A and C antibody test (+) --> Improving. Transfuse if platelets <20k 2. Leukopenia, likely secondary to hepatitis C, currently improved. --> No leukocytosis is noted. The patient has been afebrile. --> Resolved at this time. 3. Anemia due to underlying chronic disease. --> Continue to closely monitor. --> Blood transfusion not required unless symptomatic or hgb <7 --> Reviewed anemia workup. Iron 110, TIBC 230, Ferritin 90, B12 821, Folate 6.6 , TSH 1.4 --> Hemoglobin stable, blood transfusion not needed at this time 4. Acute on hypoxic respiratory failure, status post tracheostomy, improved. 5. Hepatitis C. Management as an outpatient. --> Appreciate Infectious Disease service evaluation. 6. Hypertension. Systolic blood pressure goal less than 140. --> Improved. 7. COPD. DC Planning. Subjective Date patient seen: Jan 02, 2018 Constitutional: Denies: no symptoms, chills, diaphoresis, fever, malaise, weakness, other HEENT: Denies: no symptoms, eye pain, blurred vision, tearing, double vision, ear pain, ear discharge, nose pain, nose congestion, throat pain, throat swelling, mouth pain, mouth swelling, other Cardiovascular: Denies: no symptoms, chest pain, edema, irregular heart rate, lightheadedness, palpitations, syncope, other Respiratory: Denies: no symptoms, cough, orthopnea, shortness of breath, SOB with excertion, SOB at rest, sputum, stridor, wheezing, other Gastrointestinal/Abdominal: Denies: no symptoms, abdomen distended, abdominal pain, black stools, tarry stools, blood in stool, constipated, diarrhea, difficulty swallowing, nausea, poor appetite, poor fluid intake, rectal bleeding , vomiting, other Genitourinary: Denies: no symptoms, burning, discharge, frequency, flank pain, hematuria, incontinence, pain, urgency, other Neurologic/Psychiatric: Denies: no symptoms, anxiety, depressed, emotional problems, headache, numbness, paresthesia, pre-existing deficit, seizure, tingling, tremors, weakness, other Endocrine: Denies: no symptoms, excessive sweating, flushing, intolerance to cold, intolerance to heat, increased hunger, increased thirst, increased urine, unexplained weight gain, unexplained weight loss, other Hematologic/Lymphatic: Reports: anemia Allergies: Coded Allergies: Shrimp (Unverified Allergy, Unknown, 12/04/17) Subjective Improving. H/H stable. No fever or chills. Objective Last 24 Hour Vital Signs Date Time Temp Pulse Resp B/P (MAP) Pulse Ox O2 Delivery O2 Flow Rate FiO2 01/02/18 20:20 Nasal Cannula 2.0 28 01/02/18 20:19 98 Nasal Cannula 2.0 28 01/02/18 20:00 96.8 93 19 140/66 99 96.8 01/02/18 16:00 Nasal Cannula 2.0 01/02/18 16:00 97.9 110 20 115/69 100 97.9 01/02/18 12:00 Nasal Cannula 2.0 01/02/18 12:00 97.7 80 22 115/75 98 97.7 01/02/18 08:14 70 115/68 01/02/18 08:00 96.0 70 22 115/68 99 96.0 01/02/18 08:00 Nasal Cannula 2.0 01/02/18 07:45 99 Nasal Cannula 2.0 28 01/02/18 07:45 Nasal Cannula 2.0 28 01/02/18 04:11 96.8 64 20 123/66 100 Room Air 96.8 01/02/18 00:07 98.2 82 20 142/80 100 Nasal Cannula 98.2 Intake and Output 01/01/18 01/02/18 19:00 07:00 Intake Total 720 ml Balance 720 ml Intake Oral 720 ml # Voids 2 3 # Bowel Movements 1 1 Height (Feet): 5 Height (Inches): 4.00 Weight (Pounds): 147 General Appearance: no apparent distress EENT: normal ENT inspection Neck: normal alignment Cardiovascular: normal rate, regular rhythm Respiratory/Chest: decreased breath sounds Abdomen: non tender, soft PEPITO PRADO Jan 02, 2018 22:47
[2018-01-03] VITALS: BP 125/74
[2018-01-03 04:00] VITALS: BP 142/83
[2018-01-03] MEDS: NovoLOG Insulin Flexpen SUBQ SCH ×7 (05:56→20:55)
--- NOTE | 2018-01-03 07:21 | General Progress Note ---
Assessment/Plan Problem List: (1) Diabetes mellitus out of control ICD Codes: E11.65 - Type 2 diabetes mellitus with hyperglycemia SNOMED: 96494015, 056860783 (2) COPD (chronic obstructive pulmonary disease) ICD Codes: J44.9 - Chronic obstructive pulmonary disease, unspecified SNOMED: 67371494 (3) Acute and chronic respiratory failure ICD Codes: J96.20 - Acute and chronic respiratory failure, unspecified whether with hypoxia or hypercapnia SNOMED: 14539989 Assessment/Plan continue Levemir 15 units bid increase Novolog to 12 units ac tid continue NISS Subjective Allergies: Coded Allergies: Shrimp (Unverified Allergy, Unknown, 12/04/17) All Systems: reviewed and negative except above Subjective events noted elevated glucose before lunch yesterday still on IVSM daily Objective Last 24 Hour Vital Signs Date Time Temp Pulse Resp B/P (MAP) Pulse Ox O2 Delivery O2 Flow Rate FiO2 01/03/18 04:00 98.1 103 17 142/83 100 98.1 01/03/18 00:00 98.1 104 19 125/74 99 98.1 01/02/18 20:20 Nasal Cannula 2.0 28 01/02/18 20:19 98 Nasal Cannula 2.0 28 01/02/18 20:00 96.8 93 19 140/66 99 96.8 01/02/18 16:00 Nasal Cannula 2.0 01/02/18 16:00 97.9 110 20 115/69 100 97.9 01/02/18 12:00 Nasal Cannula 2.0 01/02/18 12:00 97.7 80 22 115/75 98 97.7 01/02/18 08:14 70 115/68 01/02/18 08:00 96.0 70 22 115/68 99 96.0 01/02/18 08:00 Nasal Cannula 2.0 01/02/18 07:45 99 Nasal Cannula 2.0 28 01/02/18 07:45 Nasal Cannula 2.0 28 Intake and Output 01/02/18 01/03/18 19:00 07:00 Intake Total 240 ml Balance 240 ml Intake Oral 240 ml # Voids 1 Height (Feet): 5 Height (Inches): 4.00 Weight (Pounds): 150 General Appearance: no apparent distress Neck: normal alignment Cardiovascular: normal rate Respiratory/Chest: decreased breath sounds Abdomen: normal bowel sounds Edema: 1+ Arm (L), 1+ Arm (R), 1+ Leg (L), 1+ Leg (R), 1+ Pedal (L), 1+ Pedal ( R), 1+ Generalized Objective Current Medications Medications (Trade) Dose Ordered Sig/Hansel Route PRN Reason Start Time Stop Time Status Last Admin Dose Admin Acetaminophen (Tylenol) 650 mg Q4H PRN ORAL T>100.5 12/30/17 07:31 01/19/18 15:30 01/02/18 08:12 Amlodipine Besylate (Norvasc) 5 mg DAILY ORAL 12/27/17 09:00 01/20/18 08:59 01/02/18 08:14 Chlorhexidine Gluconate (Jazzmine-Hex 2%) 1 applic DAILY@1999 TOPIC 12/26/17 20:00 01/20/18 19:59 01/02/18 21:05 Clonidine HCl (Catapres Tab) 0.1 mg Q4H PRN ORAL sbp more than 160mmHg 12/26/17 15:31 01/23/18 15:30 Dextrose (Dextrose 50%) 25 ml STAT PRN IV Blood Sugar btwn 60-69 mg/dL 12/26/17 15:33 01/25/18 15:32 12/26/17 21:55 Dextrose (Dextrose 50%) 50 ml STAT PRN IV BS less than 60mg/dl 12/26/17 15:34 01/25/18 15:33 Docusate Sodium (Colace) 100 mg THREE TIMES A DAY ORAL 12/26/17 18:00 01/22/18 09:59 01/02/18 18:43 Heparin Sodium (Porcine) (Heparin 5000 units/ml) 5,000 units EVERY 12 HOURS SUBQ 12/26/17 21:00 01/20/18 08:59 01/02/18 21:06 Insulin Aspart (NovoLOG) BEFORE MEALS AND HS SUBQ 12/26/17 16:30 01/22/18 20:59 01/03/18 05:57 Insulin Aspart (NovoLOG) 12 units NOVOTIAC SUBQ 01/01/18 11:50 01/23/18 11:49 01/03/18 05:56 Insulin Detemir (Levemir) 15 units EVERY 12 HOURS SUBQ 12/26/17 21:00 5/9/18 20:59 01/02/18 21:11 Methylprednisolone Sodium Succinate (Solu-MEDROL) 60 mg DAILY IV 12/27/17 09:00 01/20/18 00:00 01/02/18 08:16 Mineral Oil (Fleet's Mineral Oil Enema) 133 ml EVERY OTHER DAY RECTAL 12/27/17 09:00 01/22/18 09:59 Nitroglycerin (Ntg) 0.4 mg Q5M X 3 DOSES PRN SL Prn Chest Pain 12/26/17 15:59 01/19/18 15:58 Ondansetron HCl (Zofran) 4 mg Q6H PRN IVP Nausea & Vomiting 12/26/17 16:00 01/19/18 15:59 Polyethylene Glycol (Miralax) 17 gm BEDTIME ORAL 12/26/17 21:00 01/22/18 20:59 12/30/17 20:30 Promethazine HCl/ Codeine (Phenergan with Codeine) 5 ml Q6H PRN ORAL cough 12/26/17 16:01 01/23/18 16:00 Risperidone (RisperDAL) 1 mg BID ORAL 12/26/17 18:00 01/20/18 13:14 01/02/18 18:43 Sennosides (Senokot) 1 tab DAILY ORAL 12/27/17 09:00 01/22/18 14:59 01/01/18 10:33 Vitamin A/Vitamin D (A & D Oint) 1 applic EVERY 12 HOURS TOPIC 12/26/17 21:00 01/20/18 22:59 01/02/18 21:12 Item Value Date Time Bedside Blood Glucose 176 mg/dl H 01/03/18 0622 Bedside Blood Glucose 353 mg/dl H 01/02/18 2115 Bedside Blood Glucose 99 mg/dl 01/02/18 1630 Bedside Blood Glucose 452 mg/dl H 01/02/18 1146 Bedside Blood Glucose 230 mg/dl H 01/02/18 0822 Bedside Blood Glucose 230 mg/dl H 01/02/18 0606 FEMI MCKEON Jan 03, 2018 07:21
[2018-01-03 08:00] VITALS: BP 107/57
[2018-01-03] MEDS: Sennosides 8.6mg ORAL SCH (09:00)
[2018-01-03] MEDS: Docusate 100mg cap ORAL SCH ×3 (09:19→17:04)
[2018-01-03] MEDS: Solu-MEDROL 125mg Inj IV SCH (09:19)
[2018-01-03] MEDS: Levemir Flexpen SUBQ SCH ×2 (09:21→20:53)
[2018-01-03] MEDS: Heparin 5000 units/ml inj SUBQ SCH ×2 (09:29→20:47)
[2018-01-03] MEDS: Vitamin A&D Oint 2oz Tube TOPIC SCH ×2 (09:29→22:23)
--- NOTE | 2018-01-03 10:50 | Infectious Diseases Prog Note ---
Assessment/Plan Assessment/Plan Assessment: Acute hypoxic resp failure improved COPD exacerbation- -CXR: No acute disease Afebrile, no leukocytosis Recent acute hypoxic failure and PNA 11/2015 -sp cx 12/04: E.coli (davila S), P. mirabilis (davila S) Influenza sc : Neg transaminitis Hx of Hep C Hep panel : A Imm HIV Neg hx of trach s/p removal COPD Dm2 HTN NH resident Plan: - Monitor pt off of AB Rx 12/24 SP Levaquin # 5 /5 for COPD exacerbation and monitor pt off of AB Rx -12/10 SP Cefepime #7 -12/06 SP Vanco #3 -Monitor CBC/BMP, temperatures -aspiration precautions Hem fup, re TCP Hep C fup nad probable need for Hep Vax as out pt Subjective Allergies: Coded Allergies: Shrimp (Unverified Allergy, Unknown, 12/04/17) Subjective comfortable Objective Vital Signs Last 24 Hour Vital Signs Date Time Temp Pulse Resp B/P (MAP) Pulse Ox O2 Delivery O2 Flow Rate FiO2 01/03/18 09:00 107 107/57 01/03/18 08:00 97.7 107 19 107/57 98 97.7 01/03/18 04:00 98.1 103 17 142/83 100 98.1 01/03/18 00:00 98.1 104 19 125/74 99 98.1 01/02/18 20:20 Nasal Cannula 2.0 28 01/02/18 20:19 98 Nasal Cannula 2.0 28 01/02/18 20:00 96.8 93 19 140/66 99 96.8 01/02/18 16:00 Nasal Cannula 2.0 01/02/18 16:00 97.9 110 20 115/69 100 97.9 01/02/18 12:00 Nasal Cannula 2.0 01/02/18 12:00 97.7 80 22 115/75 98 97.7 Height (Feet): 5 Height (Inches): 4.00 Weight (Pounds): 150 HEENT: anicteric Respiratory/Chest: no respiratory distress Cardiovascular: regular rhythm Abdomen: no organomegaly Current Medications Medications (Trade) Dose Ordered Sig/Hansel Route PRN Reason Start Time Stop Time Status Last Admin Dose Admin Acetaminophen (Tylenol) 650 mg Q4H PRN ORAL T>100.5 12/30/17 07:31 5/18 15:30 01/02/18 08:12 Amlodipine Besylate (Norvasc) 5 mg DAILY ORAL 12/27/17 09:00 01/20/18 08:59 01/02/18 08:14 Chlorhexidine Gluconate (Jazzmine-Hex 2%) 1 applic DAILY@2000 TOPIC 12/26/17 20:00 01/20/18 19:59 01/02/18 21:05 Clonidine HCl (Catapres Tab) 0.1 mg Q4H PRN ORAL sbp more than 160mmHg 12/26/17 15:31 01/23/18 15:30 Dextrose (Dextrose 50%) 25 ml STAT PRN IV Blood Sugar btwn 60-69 mg/dL 12/26/17 15:33 01/25/18 15:32 12/26/17 21:55 Dextrose (Dextrose 50%) 50 ml STAT PRN IV BS less than 60mg/dl 12/26/17 15:34 01/25/18 15:33 Docusate Sodium (Colace) 100 mg THREE TIMES A DAY ORAL 12/26/17 18:00 01/22/18 09:59 01/03/18 09:19 Heparin Sodium (Porcine) (Heparin 5000 units/ml) 5,000 units EVERY 12 HOURS SUBQ 12/26/17 21:00 01/20/18 08:59 01/03/18 09:29 Insulin Aspart (NovoLOG) BEFORE MEALS AND HS SUBQ 12/26/17 16:30 01/22/18 20:59 01/03/18 05:57 Insulin Aspart (NovoLOG) 12 units NOVOTIAC SUBQ 01/01/18 11:50 01/23/18 11:49 01/03/18 05:56 Insulin Detemir (Levemir) 15 units EVERY 12 HOURS SUBQ 12/26/17 21:00 01/23/18 20:59 01/03/18 09:21 Methylprednisolone Sodium Succinate (Solu-MEDROL) 60 mg DAILY IV 12/27/17 09:00 01/20/18 00:00 01/03/18 09:19 Mineral Oil (Fleet's Mineral Oil Enema) 133 ml EVERY OTHER DAY RECTAL 12/27/17 09:00 01/22/18 09:59 Nitroglycerin (Ntg) 0.4 mg Q5M X 3 DOSES PRN SL Prn Chest Pain 12/26/17 15:59 01/19/18 15:58 Ondansetron HCl (Zofran) 4 mg Q6H PRN IVP Nausea & Vomiting 12/26/17 16:00 01/19/18 15:59 Polyethylene Glycol (Miralax) 17 gm BEDTIME ORAL 12/26/17 21:00 01/22/18 20:59 12/30/17 20:30 Promethazine HCl/ Codeine (Phenergan with Codeine) 5 ml Q6H PRN ORAL cough 12/26/17 16:01 01/23/18 16:00 Risperidone (RisperDAL) 1 mg BID ORAL 12/26/17 18:00 01/20/18 13:14 01/03/18 09:19 Sennosides (Senokot) 1 tab DAILY ORAL 12/27/17 09:00 01/22/18 14:59 01/01/18 10:33 Vitamin A/Vitamin D (A & D Oint) 1 applic EVERY 12 HOURS TOPIC 12/26/17 21:00 01/20/18 22:59 01/03/18 09:29 Steve Griffin MD Jan 03, 2018 10:50
[2018-01-03 12:00] VITALS: BP 140/76
--- NOTE | 2018-01-03 13:43 | General Progress Note ---
Assessment/Plan Assessment/Plan encephalopathy psychosis due to [facility] [place] Subjective Date patient seen: Jan 03, 2018 Neurologic/Psychiatric: Reports: anxiety, depressed, emotional problems Allergies: Coded Allergies: Shrimp (Unverified Allergy, Unknown, 12/04/17) Subjective the pt is calm no psychotic sxs. no agitation Objective Last 24 Hour Vital Signs Date Time Temp Pulse Resp B/P (MAP) Pulse Ox O2 Delivery O2 Flow Rate FiO2 01/03/18 12:00 97.4 72 21 140/76 99 97.4 01/03/18 09:00 107 107/57 01/03/18 08:00 97.7 107 19 107/57 98 97.7 01/03/18 04:00 98.1 103 17 142/83 100 98.1 01/03/18 00:00 98.1 104 19 125/74 99 98.1 01/02/18 20:20 Nasal Cannula 2.0 28 01/02/18 20:19 98 Nasal Cannula 2.0 28 01/02/18 20:00 96.8 93 19 140/66 99 96.8 01/02/18 16:00 Nasal Cannula 2.0 01/02/18 16:00 97.9 110 20 115/69 100 97.9 Intake and Output 01/02/18 01/03/18 19:00 07:00 Intake Total 240 ml Balance 240 ml Intake Oral 240 ml # Voids 1 Height (Feet): 5 Height (Inches): 4.00 Weight (Pounds): 150 General Appearance: no apparent distress, alert Neurologic: oriented x 3, responsive, depressed affect Grisel Jay M.D. Jan 03, 2018 13:43
[2018-01-03 16:15] VITALS: BP 117/65
--- NOTE | 2018-01-03 16:49 | Pulmonology Progress Note ---
Assessment/Plan Problems: (1) Acute and chronic respiratory failure (2) COPD (chronic obstructive pulmonary disease) (3) Hepatitis C Assessment/Plan all reviewed no new events no new complains respiratory treatment check cultures BP controlled on Levemir 11 BID difficult to find a place dc planning in progress Subjective ROS Limited/Unobtainable: No Constitutional: Reports: no symptoms HEENT: Repors: no symptoms Respiratory: Reports: no symptoms Allergies: Coded Allergies: Shrimp (Unverified Allergy, Unknown, 12/04/17) Objective Last 24 Hour Vital Signs Date Time Temp Pulse Resp B/P (MAP) Pulse Ox O2 Delivery O2 Flow Rate FiO2 01/03/18 16:15 98.1 100 17 117/65 98 Nasal Cannula 98.1 01/03/18 12:00 97.4 72 21 140/76 99 97.4 01/03/18 09:00 107 107/57 01/03/18 08:00 97.7 107 19 107/57 98 97.7 01/03/18 04:00 98.1 103 17 142/83 100 98.1 01/03/18 00:00 98.1 104 19 125/74 99 98.1 01/02/18 20:20 Nasal Cannula 2.0 28 01/02/18 20:19 98 Nasal Cannula 2.0 28 01/02/18 20:00 96.8 93 19 140/66 99 96.8 Intake and Output 01/02/18 01/03/18 19:00 07:00 Intake Total 240 ml Balance 240 ml Intake Oral 240 ml # Voids 1 Objective General Appearance: cachetic HEENT: normocephalic Respiratory/Chest: chest wall non-tender, lungs clear Breasts: no masses Cardiovascular: normal peripheral pulses, normal rate Abdomen: normal bowel sounds, soft, non tender Extremities: no cyanosis, no clubbing Neurologic/Psychiatric: spike driver II-XII grossly normal, no motor/sensory deficits Lymphatic: no neck adenopathy Current Medications Medications (Trade) Dose Ordered Sig/Hansel Route PRN Reason Start Time Stop Time Status Last Admin Dose Admin Acetaminophen (Tylenol) 650 mg Q4H PRN ORAL T>100.5 12/30/17 07:31 01/19/18 15:30 01/02/18 08:12 Amlodipine Besylate (Norvasc) 5 mg DAILY ORAL 4/12/18 09:00 01/20/18 08:59 01/02/18 08:14 Chlorhexidine Gluconate (Jazzmine-Hex 2%) 1 applic DAILY@2000 TOPIC 12/26/17 20:00 01/20/18 19:59 01/02/18 21:05 Clonidine HCl (Catapres Tab) 0.1 mg Q4H PRN ORAL sbp more than 160mmHg 12/26/17 15:31 01/23/18 15:30 Dextrose (Dextrose 50%) 25 ml STAT PRN IV Blood Sugar btwn 60-69 mg/dL 12/26/17 15:33 01/25/18 15:32 12/26/17 21:55 Dextrose (Dextrose 50%) 50 ml STAT PRN IV BS less than 60mg/dl 12/26/17 15:34 01/25/18 15:33 Docusate Sodium (Colace) 100 mg THREE TIMES A DAY ORAL 12/26/17 18:00 01/22/18 09:59 01/03/18 09:19 Heparin Sodium (Porcine) (Heparin 5000 units/ml) 5,000 units EVERY 12 HOURS SUBQ 12/26/17 21:00 01/20/18 08:59 01/03/18 09:29 Insulin Aspart (NovoLOG) BEFORE MEALS AND HS SUBQ 12/26/17 16:30 01/22/18 20:59 01/03/18 05:57 Insulin Aspart (NovoLOG) 12 units NOVOTIAC SUBQ 01/01/18 11:50 01/23/18 11:49 01/03/18 05:56 Insulin Detemir (Levemir) 15 units EVERY 12 HOURS SUBQ 12/26/17 21:00 01/23/18 20:59 01/03/18 09:21 Methylprednisolone Sodium Succinate (Solu-MEDROL) 60 mg DAILY IV 12/27/17 09:00 01/20/18 00:00 01/03/18 09:19 Mineral Oil (Fleet's Mineral Oil Enema) 133 ml EVERY OTHER DAY RECTAL 12/27/17 09:00 01/22/18 09:59 Nitroglycerin (Ntg) 0.4 mg Q5M X 3 DOSES PRN SL Prn Chest Pain 12/26/17 15:59 01/19/18 15:58 Ondansetron HCl (Zofran) 4 mg Q6H PRN IVP Nausea & Vomiting 12/26/17 16:00 01/19/18 15:59 Polyethylene Glycol (Miralax) 17 gm BEDTIME ORAL 12/26/17 21:00 01/22/18 20:59 12/30/17 20:30 Promethazine HCl/ Codeine (Phenergan with Codeine) 5 ml Q6H PRN ORAL cough 12/26/17 16:01 01/23/18 16:00 Risperidone (RisperDAL) 1 mg BID ORAL 12/26/17 18:00 01/20/18 13:14 01/03/18 09:19 Sennosides (Senokot) 1 tab DAILY ORAL 12/27/17 09:00 01/22/18 14:59 01/01/18 10:33 Vitamin A/Vitamin D (A & D Oint) 1 applic EVERY 12 HOURS TOPIC 12/26/17 21:00 01/20/18 22:59 01/03/18 09:29 Leni Watts MD Jan 03, 2018 16:49
[2018-01-03 20:00] VITALS: BP 138/76
[2018-01-03] MEDS: Miralax 17gm pkt ORAL SCH ×2 (20:36→20:46)
[2018-01-03] MEDS: Dyna-Hex 2% Top Sol 2oz TOPIC SCH (20:36)
--- NOTE | 2018-01-03 23:48 | General Progress Note ---
Assessment/Plan Assessment/Plan 1. Thrombocytopenia, secondary to hepatitis C --> Hep A and C antibody test (+) --> Improving. Transfuse if platelets <20k 2. Leukopenia, likely secondary to hepatitis C, currently improved. --> No leukocytosis is noted. The patient has been afebrile. --> Resolved at this time. 3. Anemia due to underlying chronic disease. --> Continue to closely monitor. --> Blood transfusion not required unless symptomatic or hgb <7 --> Reviewed anemia workup. Iron 110, TIBC 230, Ferritin 90, B12 821, Folate 6.6 , TSH 1.4 --> Hemoglobin stable, blood transfusion not needed at this time 4. Acute on hypoxic respiratory failure, status post tracheostomy, improved. 5. Hepatitis C. Management as an outpatient. --> Appreciate Infectious Disease service evaluation. 6. Hypertension. Systolic blood pressure goal less than 140. --> Improved. 7. COPD. DC Planning. Subjective Date patient seen: Jan 03, 2018 Constitutional: Denies: no symptoms, chills, diaphoresis, fever, malaise, weakness, other HEENT: Denies: no symptoms, eye pain, blurred vision, tearing, double vision, ear pain, ear discharge, nose pain, nose congestion, throat pain, throat swelling, mouth pain, mouth swelling, other Cardiovascular: Denies: no symptoms, chest pain, edema, irregular heart rate, lightheadedness, palpitations, syncope, other Respiratory: Denies: no symptoms, cough, orthopnea, shortness of breath, SOB with excertion, SOB at rest, sputum, stridor, wheezing, other Gastrointestinal/Abdominal: Denies: no symptoms, abdomen distended, abdominal pain, black stools, tarry stools, blood in stool, constipated, diarrhea, difficulty swallowing, nausea, poor appetite, poor fluid intake, rectal bleeding , vomiting, other Genitourinary: Denies: no symptoms, burning, discharge, frequency, flank pain, hematuria, incontinence, pain, urgency, other Neurologic/Psychiatric: Denies: no symptoms, anxiety, depressed, emotional problems, headache, numbness, paresthesia, pre-existing deficit, seizure, tingling, tremors, weakness, other Hematologic/Lymphatic: Reports: anemia Allergies: Coded Allergies: Shrimp (Unverified Allergy, Unknown, 12/04/17) Subjective Encephalopathy. H/H stable. Calm. Objective Last 24 Hour Vital Signs Date Time Temp Pulse Resp B/P (MAP) Pulse Ox O2 Delivery O2 Flow Rate FiO2 01/03/18 20:00 99.9 102 17 138/76 99 99.9 01/03/18 19:04 Nasal Cannula 2.0 28 01/03/18 19:03 98 Nasal Cannula 2.0 28 01/03/18 16:15 Nasal Cannula 2.0 01/03/18 16:15 98.1 100 17 117/65 98 Nasal Cannula 98.1 01/03/18 12:00 Nasal Cannula 2.0 01/03/18 12:00 97.4 72 21 140/76 99 97.4 01/03/18 09:00 107 107/57 01/03/18 08:00 Nasal Cannula 2.0 01/03/18 08:00 97.7 107 19 107/57 98 97.7 01/03/18 04:00 98.1 103 17 142/83 100 98.1 01/03/18 00:00 98.1 104 19 125/74 99 98.1 Intake and Output 01/02/18 01/03/18 19:00 07:00 Intake Total 240 ml Balance 240 ml Intake Oral 240 ml # Voids 1 Height (Feet): 5 Height (Inches): 4.00 Weight (Pounds): 150 General Appearance: confused Respiratory/Chest: decreased breath sounds Abdomen: non tender, soft PEPITO PRADO Jan 03, 2018 23:48
[2018-01-04] VITALS (7 sets, daily range): BP systolic 112–139; BP diastolic 65–79
[2018-01-04] MEDS: NovoLOG Insulin Flexpen SUBQ SCH ×7 (06:27→21:25)
[2018-01-04] MEDS: Sennosides 8.6mg ORAL SCH (09:05)
[2018-01-04] MEDS: Docusate 100mg cap ORAL SCH ×3 (09:05→17:11)
[2018-01-04] MEDS: Solu-MEDROL 125mg Inj IV SCH (09:05)
[2018-01-04] MEDS: Heparin 5000 units/ml inj SUBQ SCH ×2 (09:06→20:55)
[2018-01-04] MEDS: Levemir Flexpen SUBQ SCH ×2 (09:45→21:26)
[2018-01-04] MEDS: Vitamin A&D Oint 2oz Tube TOPIC SCH ×2 (09:50→20:53)
[2018-01-04] MEDS: Fleet's Mineral Oil Enema RECTAL SCH (09:51)
--- NOTE | 2018-01-04 10:10 | Infectious Diseases Prog Note ---
Assessment/Plan Assessment/Plan Assessment: Acute hypoxic resp failure improved COPD exacerbation- -CXR: No acute disease Afebrile, no leukocytosis Recent acute hypoxic failure and PNA 11/2015 -sp cx 12/04: E.coli (davila S), P. mirabilis (davila S) Influenza sc : Neg transaminitis Hx of Hep C Hep panel : A Imm HIV Neg hx of trach s/p removal COPD Dm2 HTN NH resident Plan: - Monitor pt off of AB Rx 12/24 SP Levaquin # 5 /5 for COPD exacerbation and monitor pt off of AB Rx -12/10 SP Cefepime #7 -12/06 SP Vanco #3 -Monitor CBC/BMP, temperatures -aspiration precautions Hem fup, re TCP Hep C fup and probable need for Hep Vax as out pt Subjective Constitutional: Denies: no symptoms, fever, chills, fatigue, anorexia, drenching sweats, other Allergies: Coded Allergies: Shrimp (Unverified Allergy, Unknown, 12/04/17) Subjective comfortable Objective Vital Signs Last 24 Hour Vital Signs Date Time Temp Pulse Resp B/P (MAP) Pulse Ox O2 Delivery O2 Flow Rate FiO2 01/04/18 09:05 98 139/79 01/04/18 04:00 99.0 98 17 139/79 99 99.0 01/04/18 00:00 99.2 98 16 135/75 99 99.2 01/03/18 20:00 99.9 102 17 138/76 99 99.9 01/03/18 19:04 Nasal Cannula 2.0 28 01/03/18 19:03 98 Nasal Cannula 2.0 28 01/03/18 16:15 Nasal Cannula 2.0 01/03/18 16:15 98.1 100 17 117/65 98 Nasal Cannula 98.1 01/03/18 12:00 Nasal Cannula 2.0 01/03/18 12:00 97.4 72 21 140/76 99 97.4 Height (Feet): 5 Height (Inches): 4.00 Weight (Pounds): 148 HEENT: anicteric Respiratory/Chest: no accessory muscle use Cardiovascular: regular rhythm Abdomen: no organomegaly Current Medications Medications (Trade) Dose Ordered Sig/Hansel Route PRN Reason Start Time Stop Time Status Last Admin Dose Admin Acetaminophen (Tylenol) 650 mg Q4H PRN ORAL T>100.5 4/15/18 07:31 01/19/18 15:30 01/02/18 08:12 Amlodipine Besylate (Norvasc) 5 mg DAILY ORAL 12/27/17 09:00 01/20/18 08:59 01/04/18 09:05 Chlorhexidine Gluconate (Jazzmine-Hex 2%) 1 applic DAILY@2000 TOPIC 12/26/17 20:00 01/20/18 19:59 01/03/18 20:36 Clonidine HCl (Catapres Tab) 0.1 mg Q4H PRN ORAL sbp more than 160mmHg 12/26/17 15:31 01/23/18 15:30 Dextrose (Dextrose 50%) 25 ml STAT PRN IV Blood Sugar btwn 60-69 mg/dL 12/26/17 15:33 01/25/18 15:32 12/26/17 21:55 Dextrose (Dextrose 50%) 50 ml STAT PRN IV BS less than 60mg/dl 12/26/17 15:34 01/25/18 15:33 Docusate Sodium (Colace) 100 mg THREE TIMES A DAY ORAL 12/26/17 18:00 01/22/18 09:59 01/04/18 09:05 Heparin Sodium (Porcine) (Heparin 5000 units/ml) 5,000 units EVERY 12 HOURS SUBQ 12/26/17 21:00 01/20/18 08:59 01/04/18 09:06 Insulin Aspart (NovoLOG) BEFORE MEALS AND HS SUBQ 12/26/17 16:30 01/22/18 20:59 01/03/18 20:55 Insulin Aspart (NovoLOG) 12 units NOVOTIAC SUBQ 01/01/18 11:50 01/23/18 11:49 01/03/18 16:54 Insulin Detemir (Levemir) 15 units EVERY 12 HOURS SUBQ 12/26/17 21:00 01/23/18 20:59 01/03/18 20:53 Methylprednisolone Sodium Succinate (Solu-MEDROL) 60 mg DAILY IV 12/27/17 09:00 01/20/18 00:00 01/04/18 09:05 Mineral Oil (Fleet's Mineral Oil Enema) 133 ml EVERY OTHER DAY RECTAL 12/27/17 09:00 5/8/18 09:59 01/04/18 09:51 Nitroglycerin (Ntg) 0.4 mg Q5M X 3 DOSES PRN SL Prn Chest Pain 12/26/17 15:59 01/19/18 15:58 Ondansetron HCl (Zofran) 4 mg Q6H PRN IVP Nausea & Vomiting 12/26/17 16:00 01/19/18 15:59 Polyethylene Glycol (Miralax) 17 gm BEDTIME ORAL 12/26/17 21:00 01/22/18 20:59 12/30/17 20:30 Promethazine HCl/ Codeine (Phenergan with Codeine) 5 ml Q6H PRN ORAL cough 12/26/17 16:01 01/23/18 16:00 Risperidone (RisperDAL) 1 mg BID ORAL 12/26/17 18:00 01/20/18 13:14 01/04/18 09:05 Sennosides (Senokot) 1 tab DAILY ORAL 12/27/17 09:00 01/22/18 14:59 01/04/18 09:05 Vitamin A/Vitamin D (A & D Oint) 1 applic EVERY 12 HOURS TOPIC 12/26/17 21:00 01/20/18 22:59 01/04/18 09:50 Steve Griffin MD Jan 04, 2018 10:10
--- NOTE | 2018-01-04 13:00 | General Progress Note ---
Assessment/Plan Status: stable, progressing Assessment/Plan encephalopathy psychosis due to [facility] Risperdal Ativan Subjective Neurologic/Psychiatric: Reports: anxiety, depressed, emotional problems Allergies: Coded Allergies: Shrimp (Unverified Allergy, Unknown, 12/04/17) Subjective the pt is calm no psychotic sxs. no agitation Objective Last 24 Hour Vital Signs Date Time Temp Pulse Resp B/P (MAP) Pulse Ox O2 Delivery O2 Flow Rate FiO2 01/04/18 09:05 98 139/79 01/04/18 08:00 97.2 90 20 123/72 99 Nasal Cannula 2.0 97.2 01/04/18 04:00 99.0 98 17 139/79 99 99.0 01/04/18 00:00 99.2 98 16 135/75 99 99.2 01/03/18 20:00 99.9 102 17 138/76 99 99.9 01/03/18 19:04 Nasal Cannula 2.0 28 01/03/18 19:03 98 Nasal Cannula 2.0 28 01/03/18 16:15 Nasal Cannula 2.0 01/03/18 16:15 98.1 100 17 117/65 98 Nasal Cannula 98.1 Intake and Output 01/03/18 01/04/18 19:00 07:00 Intake Total 360 ml 350 ml Balance 360 ml 350 ml Intake Oral 360 ml 350 ml # Voids 2 2 Height (Feet): 5 Height (Inches): 4.00 Weight (Pounds): 148 General Appearance: WD/WN, no apparent distress, alert Neurologic: alert, oriented x 3, responsive, depressed affect Grisel Jay M.D. Jan 04, 2018 13:00
--- NOTE | 2018-01-04 14:48 | Pulmonology Progress Note ---
Assessment/Plan Problems: (1) Acute and chronic respiratory failure (2) COPD (chronic obstructive pulmonary disease) (3) Hepatitis C Assessment/Plan all reviewed no new events no new complains respiratory treatment BP controlled difficult to find a place dc planning in progress Subjective ROS Limited/Unobtainable: No Constitutional: Reports: no symptoms HEENT: Repors: no symptoms Allergies: Coded Allergies: Shrimp (Unverified Allergy, Unknown, 12/04/17) Objective Last 24 Hour Vital Signs Date Time Temp Pulse Resp B/P (MAP) Pulse Ox O2 Delivery O2 Flow Rate FiO2 01/04/18 12:00 98.0 56 18 125/67 95 Nasal Cannula 2.0 98.0 01/04/18 09:05 98 139/79 01/04/18 08:00 97.2 90 20 123/72 99 Nasal Cannula 2.0 97.2 01/04/18 04:00 99.0 98 17 139/79 99 99.0 01/04/18 00:00 99.2 98 16 135/75 99 99.2 01/03/18 20:00 99.9 102 17 138/76 99 99.9 01/03/18 19:04 Nasal Cannula 2.0 28 01/03/18 19:03 98 Nasal Cannula 2.0 28 01/03/18 16:15 Nasal Cannula 2.0 01/03/18 16:15 98.1 100 17 117/65 98 Nasal Cannula 98.1 Intake and Output 01/03/18 01/04/18 19:00 07:00 Intake Total 360 ml 350 ml Balance 360 ml 350 ml Intake Oral 360 ml 350 ml # Voids 2 2 Objective General Appearance: cachetic HEENT: normocephalic Respiratory/Chest: chest wall non-tender, lungs clear Breasts: no masses Cardiovascular: normal peripheral pulses, normal rate Abdomen: normal bowel sounds, soft, non tender Extremities: no cyanosis, no clubbing Neurologic/Psychiatric: shut off worker II-XII grossly normal, no motor/sensory deficits Lymphatic: no neck adenopathy Current Medications Medications (Trade) Dose Ordered Sig/Hansel Route PRN Reason Start Time Stop Time Status Last Admin Dose Admin Acetaminophen (Tylenol) 650 mg Q4H PRN ORAL T>100.5 12/30/17 07:31 01/19/18 15:30 01/02/18 08:12 Amlodipine Besylate (Norvasc) 5 mg DAILY ORAL 12/27/17 09:00 01/20/18 08:59 01/04/18 09:05 Chlorhexidine Gluconate (Jazzmine-Hex 2%) 1 applic DAILY@2000 TOPIC 12/26/17 20:00 01/20/18 19:59 01/03/18 20:36 Clonidine HCl (Catapres Tab) 0.1 mg Q4H PRN ORAL sbp more than 160mmHg 12/26/17 15:31 01/23/18 15:30 Dextrose (Dextrose 50%) 25 ml STAT PRN IV Blood Sugar btwn 60-69 mg/dL 12/26/17 15:33 01/25/18 15:32 12/26/17 21:55 Dextrose (Dextrose 50%) 50 ml STAT PRN IV BS less than 60mg/dl 12/26/17 15:34 01/25/18 15:33 Docusate Sodium (Colace) 100 mg THREE TIMES A DAY ORAL 12/26/17 18:00 01/22/18 09:59 01/04/18 14:42 Heparin Sodium (Porcine) (Heparin 5000 units/ml) 5,000 units EVERY 12 HOURS SUBQ 12/26/17 21:00 01/20/18 08:59 01/04/18 09:06 Insulin Aspart (NovoLOG) BEFORE MEALS AND HS SUBQ 12/26/17 16:30 01/22/18 20:59 01/04/18 11:59 Insulin Aspart (NovoLOG) 12 units NOVOTIAC SUBQ 01/01/18 11:50 01/23/18 11:49 01/04/18 14:11 Insulin Detemir (Levemir) 15 units EVERY 12 HOURS SUBQ 12/26/17 21:00 01/23/18 20:59 01/03/18 20:53 Methylprednisolone Sodium Succinate (Solu-MEDROL) 60 mg DAILY IV 12/27/17 09:00 01/20/18 00:00 01/04/18 09:05 Mineral Oil (Fleet's Mineral Oil Enema) 133 ml EVERY OTHER DAY RECTAL 12/27/17 09:00 01/22/18 09:59 01/04/18 09:51 Nitroglycerin (Ntg) 0.4 mg Q5M X 3 DOSES PRN SL Prn Chest Pain 12/26/17 15:59 5/5/18 15:58 Ondansetron HCl (Zofran) 4 mg Q6H PRN IVP Nausea & Vomiting 12/26/17 16:00 01/19/18 15:59 01/04/18 12:11 Polyethylene Glycol (Miralax) 17 gm BEDTIME ORAL 12/26/17 21:00 01/22/18 20:59 12/30/17 20:30 Promethazine HCl/ Codeine (Phenergan with Codeine) 5 ml Q6H PRN ORAL cough 12/26/17 16:01 01/23/18 16:00 Risperidone (RisperDAL) 1 mg BID ORAL 12/26/17 18:00 01/20/18 13:14 01/04/18 09:05 Sennosides (Senokot) 1 tab DAILY ORAL 12/27/17 09:00 01/22/18 14:59 01/04/18 09:05 Vitamin A/Vitamin D (A & D Oint) 1 applic EVERY 12 HOURS TOPIC 12/26/17 21:00 01/20/18 22:59 01/04/18 09:50 Leni Watts MD Jan 04, 2018 14:48
[2018-01-04] MEDS: Dyna-Hex 2% Top Sol 2oz TOPIC SCH (20:50)
[2018-01-04] MEDS: Miralax 17gm pkt ORAL SCH (20:50)
--- NOTE | 2018-01-04 22:54 | General Progress Note ---
Assessment/Plan Assessment/Plan #. Thrombocytopenia, secondary to hepatitis C --> Hep A and C antibody test (+) --> Improving. Transfuse if platelets <20k #. Leukopenia, likely secondary to hepatitis C, currently improved. --> No leukocytosis is noted. The patient has been afebrile. --> Resolved at this time. #. Anemia due to underlying chronic disease. --> Continue to closely monitor. --> Blood transfusion not required unless symptomatic or hgb <7 --> Reviewed anemia workup. Iron 110, TIBC 230, Ferritin 90, B12 821, Folate 6.6 , TSH 1.4 --> Hemoglobin stable, blood transfusion not needed at this time #. Acute on hypoxic respiratory failure, status post tracheostomy, improved. #. Hepatitis C. Management as an outpatient. --> Appreciate Infectious Disease service evaluation. #. Hypertension. Systolic blood pressure goal less than 140. --> Improved. #. COPD. DC Planning. Subjective Date patient seen: Jan 04, 2018 Constitutional: Denies: no symptoms, chills, diaphoresis, fever, malaise, weakness, other HEENT: Denies: no symptoms, eye pain, blurred vision, tearing, double vision, ear pain, ear discharge, nose pain, nose congestion, throat pain, throat swelling, mouth pain, mouth swelling, other Cardiovascular: Denies: no symptoms, chest pain, edema, irregular heart rate, lightheadedness, palpitations, syncope, other Respiratory: Denies: no symptoms, cough, orthopnea, shortness of breath, SOB with excertion, SOB at rest, sputum, stridor, wheezing, other Gastrointestinal/Abdominal: Denies: no symptoms, abdomen distended, abdominal pain, black stools, tarry stools, blood in stool, constipated, diarrhea, difficulty swallowing, nausea, poor appetite, poor fluid intake, rectal bleeding , vomiting, other Genitourinary: Denies: no symptoms, burning, discharge, frequency, flank pain, hematuria, incontinence, pain, urgency, other Neurologic/Psychiatric: Denies: no symptoms, anxiety, depressed, emotional problems, headache, numbness, paresthesia, pre-existing deficit, seizure, tingling, tremors, weakness, other Hematologic/Lymphatic: Reports: anemia Allergies: Coded Allergies: Shrimp (Unverified Allergy, Unknown, 12/04/17) Subjective Encephalopathy. H/H stable. No acute events. Pending placement. Objective Last 24 Hour Vital Signs Date Time Temp Pulse Resp B/P (MAP) Pulse Ox O2 Delivery O2 Flow Rate FiO2 01/04/18 19:44 97.7 103 20 118/68 100 Room Air 97.7 01/04/18 19:34 97.7 99 20 118/68 100 Room Air 97.7 01/04/18 16:57 98.0 112 18 112/65 95 Nasal Cannula 2.0 98.0 01/04/18 12:00 98.0 56 18 125/67 95 Nasal Cannula 2.0 98.0 01/04/18 09:05 98 139/79 01/04/18 08:00 97.2 90 20 123/72 99 Nasal Cannula 2.0 97.2 01/04/18 04:00 99.0 98 17 139/79 99 99.0 01/04/18 00:00 99.2 98 16 135/75 99 99.2 Intake and Output 01/03/18 01/04/18 19:00 07:00 Intake Total 360 ml 350 ml Balance 360 ml 350 ml Intake Oral 360 ml 350 ml # Voids 2 2 Height (Feet): 5 Height (Inches): 4.00 Weight (Pounds): 148 General Appearance: no apparent distress EENT: normal ENT inspection Neck: normal alignment Respiratory/Chest: lungs clear, normal breath sounds Abdomen: non tender, soft PEPITO PRADO Jan 04, 2018 22:54
[2018-01-05] VITALS (8 sets, daily range): BP systolic 106–124; BP diastolic 57–78
[2018-01-05] MEDS: NovoLOG Insulin Flexpen SUBQ SCH ×7 (06:30→20:46)
[2018-01-05] MEDS: Docusate 100mg cap ORAL SCH ×3 (08:56→17:27)
[2018-01-05] MEDS: Vitamin A&D Oint 2oz Tube TOPIC SCH ×2 (08:56→20:47)
[2018-01-05] MEDS: Sennosides 8.6mg ORAL SCH (08:56)
[2018-01-05] MEDS: Solu-MEDROL 125mg Inj IV SCH (08:56)
[2018-01-05] MEDS: Levemir Flexpen SUBQ SCH ×2 (09:00→20:45)
[2018-01-05] MEDS: Heparin 5000 units/ml inj SUBQ SCH ×2 (09:03→20:42)
--- NOTE | 2018-01-05 10:51 | Pulmonology Progress Note ---
Assessment/Plan Problems: (1) Acute and chronic respiratory failure (2) COPD (chronic obstructive pulmonary disease) (3) Hepatitis C Assessment/Plan doing good all reviewed no new events no new complains respiratory treatment BP controlled difficult to find a place dc planning in progress Subjective ROS Limited/Unobtainable: No Constitutional: Reports: no symptoms HEENT: Repors: no symptoms Respiratory: Reports: no symptoms Allergies: Coded Allergies: Shrimp (Unverified Allergy, Unknown, 12/04/17) Objective Last 24 Hour Vital Signs Date Time Temp Pulse Resp B/P (MAP) Pulse Ox O2 Delivery O2 Flow Rate FiO2 01/05/18 08:56 105 115/78 01/05/18 08:00 97.3 109 20 120/71 99 97.3 01/05/18 05:03 97.7 105 20 115/78 100 Room Air 97.7 01/05/18 04:00 97.7 105 20 115/78 100 Nasal Cannula 97.7 01/05/18 00:13 98.1 109 20 114/75 100 Room Air 98.1 01/04/18 19:44 97.7 103 20 118/68 100 Room Air 97.7 01/04/18 19:34 97.7 99 20 118/68 100 Room Air 97.7 01/04/18 16:57 98.0 112 18 112/65 95 Nasal Cannula 2.0 98.0 01/04/18 12:00 98.0 56 18 125/67 95 Nasal Cannula 2.0 98.0 Intake and Output 01/04/18 01/05/18 19:00 07:00 Intake Total 1000 ml 360 ml Balance 1000 ml 360 ml Intake Oral 1000 ml 360 ml # Voids 6 2 # Bowel Movements 1 Objective General Appearance: cachetic HEENT: normocephalic Respiratory/Chest: chest wall non-tender, lungs clear Breasts: no masses Cardiovascular: normal peripheral pulses, normal rate Abdomen: normal bowel sounds, soft, non tender Extremities: no cyanosis, no clubbing 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, no motor/sensory deficits Lymphatic: no neck adenopathy Current Medications Medications (Trade) Dose Ordered Sig/Hansel Route PRN Reason Start Time Stop Time Status Last Admin Dose Admin Acetaminophen (Tylenol) 650 mg Q4H PRN ORAL T>100.5 12/30/17 07:31 01/19/18 15:30 4/18/18 08:12 Amlodipine Besylate (Norvasc) 5 mg DAILY ORAL 12/27/17 09:00 01/20/18 08:59 01/05/18 08:56 Chlorhexidine Gluconate (Jazzmine-Hex 2%) 1 applic DAILY@2000 TOPIC 12/26/17 20:00 01/20/18 19:59 01/04/18 20:50 Clonidine HCl (Catapres Tab) 0.1 mg Q4H PRN ORAL sbp more than 160mmHg 12/26/17 15:31 01/23/18 15:30 Dextrose (Dextrose 50%) 25 ml STAT PRN IV Blood Sugar btwn 60-69 mg/dL 12/26/17 15:33 01/25/18 15:32 01/04/18 16:45 Dextrose (Dextrose 50%) 50 ml STAT PRN IV BS less than 60mg/dl 12/26/17 15:34 01/25/18 15:33 Docusate Sodium (Colace) 100 mg THREE TIMES A DAY ORAL 12/26/17 18:00 01/22/18 09:59 01/05/18 08:56 Heparin Sodium (Porcine) (Heparin 5000 units/ml) 5,000 units EVERY 12 HOURS SUBQ 12/26/17 21:00 01/20/18 08:59 01/05/18 09:03 Insulin Aspart (NovoLOG) BEFORE MEALS AND HS SUBQ 12/26/17 16:30 01/22/18 20:59 01/04/18 21:25 Insulin Aspart (NovoLOG) 12 units NOVOTIAC SUBQ 01/01/18 11:50 01/23/18 11:49 01/04/18 14:11 Insulin Detemir (Levemir) 15 units EVERY 12 HOURS SUBQ 12/26/17 21:00 01/23/18 20:59 01/05/18 09:00 Methylprednisolone Sodium Succinate (Solu-MEDROL) 60 mg DAILY IV 12/27/17 09:00 01/20/18 00:00 01/05/18 08:56 Mineral Oil (Fleet's Mineral Oil Enema) 133 ml EVERY OTHER DAY RECTAL 12/27/17 09:00 01/22/18 09:59 01/04/18 09:51 Nitroglycerin (Ntg) 0.4 mg Q5M X 3 DOSES PRN SL Prn Chest Pain 12/26/17 15:59 01/19/18 15:58 Ondansetron HCl (Zofran) 4 mg Q6H PRN IVP Nausea & Vomiting 12/26/17 16:00 01/19/18 15:59 01/04/18 12:11 Polyethylene Glycol (Miralax) 17 gm BEDTIME ORAL 12/26/17 21:00 01/22/18 20:59 01/04/18 20:50 Promethazine HCl/ Codeine (Phenergan with Codeine) 5 ml Q6H PRN ORAL cough 12/26/17 16:01 01/23/18 16:00 Risperidone (RisperDAL) 1 mg BID ORAL 12/26/17 18:00 01/20/18 13:14 01/05/18 08:56 Sennosides (Senokot) 1 tab DAILY ORAL 12/27/17 09:00 01/22/18 14:59 01/05/18 08:56 Vitamin A/Vitamin D (A & D Oint) 1 applic EVERY 12 HOURS TOPIC 12/26/17 21:00 01/20/18 22:59 01/05/18 08:56 Leni Watts MD Jan 05, 2018 10:51
--- NOTE | 2018-01-05 12:02 | General Progress Note ---
Assessment/Plan Problem List: (1) Diabetes mellitus out of control ICD Codes: E11.65 - Type 2 diabetes mellitus with hyperglycemia SNOMED: 26143909, 777504467 (2) COPD (chronic obstructive pulmonary disease) ICD Codes: J44.9 - Chronic obstructive pulmonary disease, unspecified SNOMED: 46946589 (3) Acute and chronic respiratory failure ICD Codes: J96.20 - Acute and chronic respiratory failure, unspecified whether with hypoxia or hypercapnia SNOMED: 41287267 Assessment/Plan continue Levemir 15 units bid continue Novolog 12 units ac tid continue NISS Subjective Allergies: Coded Allergies: Shrimp (Unverified Allergy, Unknown, 12/04/17) All Systems: reviewed and negative except above Subjective events noted glucose values improved still on IVSM daily Objective Last 24 Hour Vital Signs Date Time Temp Pulse Resp B/P (MAP) Pulse Ox O2 Delivery O2 Flow Rate FiO2 01/05/18 08:56 105 115/78 01/05/18 08:00 97.3 109 20 120/71 99 97.3 01/05/18 05:03 97.7 105 20 115/78 100 Room Air 97.7 01/05/18 04:00 97.7 105 20 115/78 100 Nasal Cannula 97.7 01/05/18 00:13 98.1 109 20 114/75 100 Room Air 98.1 01/04/18 19:44 97.7 103 20 118/68 100 Room Air 97.7 01/04/18 19:34 97.7 99 20 118/68 100 Room Air 97.7 01/04/18 16:57 98.0 112 18 112/65 95 Nasal Cannula 2.0 98.0 Intake and Output 01/04/18 01/05/18 19:00 07:00 Intake Total 1000 ml 360 ml Balance 1000 ml 360 ml Intake Oral 1000 ml 360 ml # Voids 6 2 # Bowel Movements 1 Height (Feet): 5 Height (Inches): 4.00 Weight (Pounds): 147 General Appearance: no apparent distress Neck: normal alignment Respiratory/Chest: decreased breath sounds Abdomen: normal bowel sounds Pelvis: normal external exam Edema: no edema noted Arm (L), no edema noted Arm (R), no edema noted Leg (L), no edema noted Leg (R), no edema noted Pedal (L), no edema noted Pedal (R), no edema noted Generalized Objective Current Medications Medications (Trade) Dose Ordered Sig/Hansel Route PRN Reason Start Time Stop Time Status Last Admin Dose Admin Acetaminophen (Tylenol) 650 mg Q4H PRN ORAL T>100.5 12/30/17 07:31 01/19/18 15:30 01/02/18 08:12 Amlodipine Besylate (Norvasc) 5 mg DAILY ORAL 12/27/17 09:00 01/20/18 08:59 01/05/18 08:56 Chlorhexidine Gluconate (Jazzmine-Hex 2%) 1 applic DAILY@1999 TOPIC 12/26/17 20:00 01/20/18 19:59 01/04/18 20:50 Clonidine HCl (Catapres Tab) 0.1 mg Q4H PRN ORAL sbp more than 160mmHg 12/26/17 15:31 01/23/18 15:30 Dextrose (Dextrose 50%) 25 ml STAT PRN IV Blood Sugar btwn 60-69 mg/dL 12/26/17 15:33 01/25/18 15:32 01/04/18 16:45 Dextrose (Dextrose 50%) 50 ml STAT PRN IV BS less than 60mg/dl 12/26/17 15:34 01/25/18 15:33 Docusate Sodium (Colace) 100 mg THREE TIMES A DAY ORAL 12/26/17 18:00 01/22/18 09:59 01/05/18 08:56 Heparin Sodium (Porcine) (Heparin 5000 units/ml) 5,000 units EVERY 12 HOURS SUBQ 12/26/17 21:00 01/20/18 08:59 01/05/18 09:03 Insulin Aspart (NovoLOG) BEFORE MEALS AND HS SUBQ 12/26/17 16:30 01/22/18 20:59 01/05/18 11:39 Insulin Aspart (NovoLOG) 12 units NOVOTIAC SUBQ 01/01/18 11:50 01/23/18 11:49 01/04/18 14:11 Insulin Detemir (Levemir) 15 units EVERY 12 HOURS SUBQ 12/26/17 21:00 01/23/18 20:59 01/05/18 09:00 Methylprednisolone Sodium Succinate (Solu-MEDROL) 60 mg DAILY IV 12/27/17 09:00 01/20/18 00:00 01/05/18 08:56 Mineral Oil (Fleet's Mineral Oil Enema) 133 ml EVERY OTHER DAY RECTAL 12/27/17 09:00 01/22/18 09:59 01/04/18 09:51 Nitroglycerin (Ntg) 0.4 mg Q5M X 3 DOSES PRN SL Prn Chest Pain 12/26/17 15:59 01/19/18 15:58 Ondansetron HCl (Zofran) 4 mg Q6H PRN IVP Nausea & Vomiting 12/26/17 16:00 01/19/18 15:59 01/04/18 12:11 Polyethylene Glycol (Miralax) 17 gm BEDTIME ORAL 12/26/17 21:00 01/22/18 20:59 01/04/18 20:50 Promethazine HCl/ Codeine (Phenergan with Codeine) 5 ml Q6H PRN ORAL cough 12/26/17 16:01 01/23/18 16:00 Risperidone (RisperDAL) 1 mg BID ORAL 12/26/17 18:00 01/20/18 13:14 01/05/18 08:56 Sennosides (Senokot) 1 tab DAILY ORAL 12/27/17 09:00 01/22/18 14:59 01/05/18 08:56 Vitamin A/Vitamin D (A & D Oint) 1 applic EVERY 12 HOURS TOPIC 12/26/17 21:00 01/20/18 22:59 01/05/18 08:56 Item Value Date Time Bedside Blood Glucose 289 mg/dl H 01/05/18 1139 Bedside Blood Glucose 109 mg/dl 01/05/18 0900 Bedside Blood Glucose 109 mg/dl 01/05/18 0630 Bedside Blood Glucose 256 mg/dl H 01/04/18 2148 Bedside Blood Glucose 157 mg/dl H 01/04/18 1730 Bedside Blood Glucose 362 mg/dl H 01/04/18 1411 Bedside Blood Glucose 83 mg/dl 01/04/18 0945 FEMI MCKEON Jan 05, 2018 12:02
--- NOTE | 2018-01-05 13:00 | Infectious Diseases Prog Note ---
Assessment/Plan Assessment/Plan Assessment: Acute hypoxic resp failure improved COPD exacerbation- -CXR: No acute disease Afebrile, no leukocytosis Recent acute hypoxic failure and PNA 11/2015 -sp cx 12/04: E.coli (davila S), P. mirabilis (davila S) Influenza sc : Neg transaminitis improving Hx of Hep C Hep panel : A Imm HIV Neg hx of trach s/p removal COPD Dm2 HTN NH resident Plan: - Monitor pt off of AB Rx 12/24 SP Levaquin # 5 /5 for COPD exacerbation and monitor pt off of AB Rx -12/10 SP Cefepime #7 -12/06 SP Vanco #3 -Monitor CBC/BMP, temperatures -aspiration precautions Hem fup, re TCP Hep C fup and probable need for Hep B Vax as out pt Subjective Allergies: Coded Allergies: Shrimp (Unverified Allergy, Unknown, 12/04/17) Subjective comfortable Objective Vital Signs Last 24 Hour Vital Signs Date Time Temp Pulse Resp B/P (MAP) Pulse Ox O2 Delivery O2 Flow Rate FiO2 01/05/18 08:56 105 115/78 01/05/18 08:00 97.3 109 20 120/71 99 97.3 01/05/18 05:03 97.7 105 20 115/78 100 Room Air 97.7 01/05/18 04:00 97.7 105 20 115/78 100 Nasal Cannula 97.7 01/05/18 00:13 98.1 109 20 114/75 100 Room Air 98.1 01/04/18 19:44 97.7 103 20 118/68 100 Room Air 97.7 01/04/18 19:34 97.7 99 20 118/68 100 Room Air 97.7 01/04/18 16:57 98.0 112 18 112/65 95 Nasal Cannula 2.0 98.0 Height (Feet): 5 Height (Inches): 4.00 Weight (Pounds): 147 HEENT: atraumatic Respiratory/Chest: no respiratory distress Cardiovascular: regularly irregular Abdomen: no organomegaly Current Medications Medications (Trade) Dose Ordered Sig/Hansel Route PRN Reason Start Time Stop Time Status Last Admin Dose Admin Acetaminophen (Tylenol) 650 mg Q4H PRN ORAL T>100.5 12/30/17 07:31 01/19/18 15:30 01/02/18 08:12 Amlodipine Besylate (Norvasc) 5 mg DAILY ORAL 12/27/17 09:00 01/20/18 08:59 01/05/18 08:56 Chlorhexidine Gluconate (Jazzmine-Hex 2%) 1 applic DAILY@2000 TOPIC 12/26/17 20:00 01/20/18 19:59 01/04/18 20:50 Clonidine HCl (Catapres Tab) 0.1 mg Q4H PRN ORAL sbp more than 160mmHg 12/26/17 15:31 01/23/18 15:30 Dextrose (Dextrose 50%) 25 ml STAT PRN IV Blood Sugar btwn 60-69 mg/dL 12/26/17 15:33 01/25/18 15:32 01/04/18 16:45 Dextrose (Dextrose 50%) 50 ml STAT PRN IV BS less than 60mg/dl 12/26/17 15:34 01/25/18 15:33 Docusate Sodium (Colace) 100 mg THREE TIMES A DAY ORAL 12/26/17 18:00 01/22/18 09:59 01/05/18 08:56 Heparin Sodium (Porcine) (Heparin 5000 units/ml) 5,000 units EVERY 12 HOURS SUBQ 12/26/17 21:00 01/20/18 08:59 01/05/18 09:03 Insulin Aspart (NovoLOG) BEFORE MEALS AND HS SUBQ 12/26/17 16:30 01/22/18 20:59 01/05/18 11:39 Insulin Aspart (NovoLOG) 12 units NOVOTIAC SUBQ 01/01/18 11:50 01/23/18 11:49 01/05/18 12:56 Insulin Detemir (Levemir) 15 units EVERY 12 HOURS SUBQ 12/26/17 21:00 01/23/18 20:59 01/05/18 09:00 Methylprednisolone Sodium Succinate (Solu-MEDROL) 60 mg DAILY IV 12/27/17 09:00 01/20/18 00:00 01/05/18 08:56 Mineral Oil (Fleet's Mineral Oil Enema) 133 ml EVERY OTHER DAY RECTAL 12/27/17 09:00 01/22/18 09:59 01/04/18 09:51 Nitroglycerin (Ntg) 0.4 mg Q5M X 3 DOSES PRN SL Prn Chest Pain 12/26/17 15:59 01/19/18 15:58 Ondansetron HCl (Zofran) 4 mg Q6H PRN IVP Nausea & Vomiting 12/26/17 16:00 01/19/18 15:59 01/04/18 12:11 Polyethylene Glycol (Miralax) 17 gm BEDTIME ORAL 12/26/17 21:00 01/22/18 20:59 01/04/18 20:50 Promethazine HCl/ Codeine (Phenergan with Codeine) 5 ml Q6H PRN ORAL cough 12/26/17 16:01 01/23/18 16:00 Risperidone (RisperDAL) 1 mg BID ORAL 12/26/17 18:00 01/20/18 13:14 01/05/18 08:56 Sennosides (Senokot) 1 tab DAILY ORAL 12/27/17 09:00 01/22/18 14:59 01/05/18 08:56 Vitamin A/Vitamin D (A & D Oint) 1 applic EVERY 12 HOURS TOPIC 12/26/17 21:00 01/20/18 22:59 01/05/18 08:56 Steve Griffin MD Jan 05, 2018 13:00
[2018-01-05] MEDS: Dyna-Hex 2% Top Sol 2oz TOPIC SCH ×2 (20:00→20:40)
[2018-01-05] MEDS: Miralax 17gm pkt ORAL SCH (20:40)
--- NOTE | 2018-01-05 22:36 | General Progress Note ---
Assessment/Plan Assessment/Plan #. Thrombocytopenia, secondary to hepatitis C --> Hep A and C antibody test (+) --> Improving. Transfuse if platelets <20k #. Leukopenia, likely secondary to hepatitis C, currently improved. --> No leukocytosis is noted. The patient has been afebrile. --> Resolved at this time. #. Anemia due to underlying chronic disease. --> Continue to closely monitor. --> Blood transfusion not required unless symptomatic or hgb <7 --> Reviewed anemia workup. Iron 110, TIBC 230, Ferritin 90, B12 821, Folate 6.6 , TSH 1.4 --> Hemoglobin stable, blood transfusion not needed at this time #. Acute on hypoxic respiratory failure, status post tracheostomy, improved. #. Hepatitis C. Management as an outpatient. --> Appreciate Infectious Disease service evaluation. #. Hypertension. Systolic blood pressure goal less than 140. --> Improved. #. COPD. DC Planning. Subjective Date patient seen: Jan 05, 2018 Constitutional: Denies: no symptoms, chills, diaphoresis, fever, malaise, weakness, other HEENT: Denies: no symptoms, eye pain, blurred vision, tearing, double vision, ear pain, ear discharge, nose pain, nose congestion, throat pain, throat swelling, mouth pain, mouth swelling, other Cardiovascular: Denies: no symptoms, chest pain, edema, irregular heart rate, lightheadedness, palpitations, syncope, other Respiratory: Denies: no symptoms, cough, orthopnea, shortness of breath, SOB with excertion, SOB at rest, sputum, stridor, wheezing, other Gastrointestinal/Abdominal: Denies: no symptoms, abdomen distended, abdominal pain, black stools, tarry stools, blood in stool, constipated, diarrhea, difficulty swallowing, nausea, poor appetite, poor fluid intake, rectal bleeding , vomiting, other Genitourinary: Denies: no symptoms, burning, discharge, frequency, flank pain, hematuria, incontinence, pain, urgency, other Neurologic/Psychiatric: Denies: no symptoms, anxiety, depressed, emotional problems, headache, numbness, paresthesia, pre-existing deficit, seizure, tingling, tremors, weakness, other Hematologic/Lymphatic: Reports: anemia Allergies: Coded Allergies: Shrimp (Unverified Allergy, Unknown, 12/04/17) Subjective No active bleeding. No respiratory distress. Pending placement. Objective Last 24 Hour Vital Signs Date Time Temp Pulse Resp B/P (MAP) Pulse Ox O2 Delivery O2 Flow Rate FiO2 01/05/18 20:00 97.5 100 18 113/70 99 97.5 01/05/18 16:00 97.5 108 20 106/63 98 97.5 01/05/18 12:00 97.9 115 19 122/57 96 97.9 01/05/18 08:56 105 115/78 01/05/18 08:00 97.3 109 20 120/71 99 97.3 01/05/18 05:03 97.7 105 20 115/78 100 Room Air 97.7 01/05/18 04:00 97.7 105 20 115/78 100 Nasal Cannula 97.7 01/05/18 00:13 98.1 109 20 114/75 100 Room Air 98.1 Intake and Output 01/04/18 01/05/18 19:00 07:00 Intake Total 1000 ml 360 ml Balance 1000 ml 360 ml Intake Oral 1000 ml 360 ml # Voids 6 2 # Bowel Movements 1 Height (Feet): 5 Height (Inches): 4.00 Weight (Pounds): 147 General Appearance: no apparent distress Cardiovascular: tachycardia Respiratory/Chest: lungs clear, normal breath sounds Abdomen: non tender, soft PEPITO PRADO Jan 05, 2018 22:36
[2018-01-06 04:00] VITALS: BP 104/65
[2018-01-06] MEDS: NovoLOG Insulin Flexpen SUBQ SCH ×7 (06:30→20:42)
[2018-01-06 08:00] VITALS: BP 113/66
[2018-01-06] MEDS: Fleet's Mineral Oil Enema RECTAL SCH (08:48)
[2018-01-06] MEDS: Docusate 100mg cap ORAL SCH ×3 (08:49→17:12)
[2018-01-06] MEDS: Heparin 5000 units/ml inj SUBQ SCH ×2 (08:49→20:39)
[2018-01-06] MEDS: Solu-MEDROL 125mg Inj IV SCH (08:49)
[2018-01-06] MEDS: Levemir Flexpen SUBQ SCH ×2 (08:50→21:42)
[2018-01-06] MEDS: Vitamin A&D Oint 2oz Tube TOPIC SCH ×2 (08:55→20:42)
[2018-01-06] MEDS: Sennosides 8.6mg ORAL SCH (08:55)
--- NOTE | 2018-01-06 10:16 | General Progress Note ---
Assessment/Plan Problem List: (1) Diabetes mellitus out of control ICD Codes: E11.65 - Type 2 diabetes mellitus with hyperglycemia SNOMED: 16474731, 306322278 (2) COPD (chronic obstructive pulmonary disease) ICD Codes: J44.9 - Chronic obstructive pulmonary disease, unspecified SNOMED: 28941730 (3) Acute and chronic respiratory failure ICD Codes: J96.20 - Acute and chronic respiratory failure, unspecified whether with hypoxia or hypercapnia SNOMED: 79126051 Assessment/Plan reduce Levemir to 12 units bid continue Novolog 12 units ac tid continue NISS Subjective Allergies: Coded Allergies: Shrimp (Unverified Allergy, Unknown, 12/04/17) All Systems: reviewed and negative except above Subjective events noted glucose values improved still on IVSM daily Objective Last 24 Hour Vital Signs Date Time Temp Pulse Resp B/P (MAP) Pulse Ox O2 Delivery O2 Flow Rate FiO2 01/06/18 08:49 102 113/66 01/06/18 08:00 96.3 102 18 113/66 93 Room Air 96.3 01/06/18 04:00 96.6 90 18 104/65 100 96.6 01/05/18 23:58 97.6 100 18 124/71 99 97.6 01/05/18 20:00 97.5 100 18 113/70 99 97.5 01/05/18 16:00 97.5 108 20 106/63 98 97.5 01/05/18 12:00 97.9 115 19 122/57 96 97.9 Intake and Output 01/05/18 01/06/18 19:00 07:00 Intake Total 500 ml 240 ml Balance 500 ml 240 ml Intake Oral 500 ml 240 ml # Voids 2 5 # Bowel Movements 1 2 Height (Feet): 5 Height (Inches): 4.00 Weight (Pounds): 146 General Appearance: no apparent distress Neck: normal alignment Respiratory/Chest: decreased breath sounds Abdomen: normal bowel sounds Objective Current Medications Medications (Trade) Dose Ordered Sig/Hansel Route PRN Reason Start Time Stop Time Status Last Admin Dose Admin Acetaminophen (Tylenol) 650 mg Q4H PRN ORAL T>100.5 12/30/17 07:31 01/19/18 15:30 01/02/18 08:12 Amlodipine Besylate (Norvasc) 5 mg DAILY ORAL 12/27/17 09:00 5/6/18 08:59 01/05/18 08:56 Chlorhexidine Gluconate (Jazzmine-Hex 2%) 1 applic DAILY@2000 TOPIC 12/26/17 20:00 01/20/18 19:59 01/04/18 20:50 Clonidine HCl (Catapres Tab) 0.1 mg Q4H PRN ORAL sbp more than 160mmHg 12/26/17 15:31 01/23/18 15:30 Dextrose (Dextrose 50%) 25 ml STAT PRN IV Blood Sugar btwn 60-69 mg/dL 12/26/17 15:33 01/25/18 15:32 01/04/18 16:45 Dextrose (Dextrose 50%) 50 ml STAT PRN IV BS less than 60mg/dl 12/26/17 15:34 01/25/18 15:33 Docusate Sodium (Colace) 100 mg THREE TIMES A DAY ORAL 12/26/17 18:00 01/22/18 09:59 01/06/18 08:49 Heparin Sodium (Porcine) (Heparin 5000 units/ml) 5,000 units EVERY 12 HOURS SUBQ 12/26/17 21:00 01/20/18 08:59 01/05/18 20:42 Insulin Aspart (NovoLOG) BEFORE MEALS AND HS SUBQ 12/26/17 16:30 01/22/18 20:59 01/05/18 20:46 Insulin Aspart (NovoLOG) 12 units NOVOTIAC SUBQ 01/01/18 11:50 01/23/18 11:49 01/05/18 17:22 Insulin Detemir (Levemir) 15 units EVERY 12 HOURS SUBQ 12/26/17 21:00 01/23/18 20:59 01/06/18 08:50 Methylprednisolone Sodium Succinate (Solu-MEDROL) 60 mg DAILY IV 12/27/17 09:00 01/20/18 00:00 01/06/18 08:49 Mineral Oil (Fleet's Mineral Oil Enema) 133 ml EVERY OTHER DAY RECTAL 12/27/17 09:00 01/22/18 09:59 01/06/18 08:48 Nitroglycerin (Ntg) 0.4 mg Q5M X 3 DOSES PRN SL Prn Chest Pain 12/26/17 15:59 5/5/18 15:58 Ondansetron HCl (Zofran) 4 mg Q6H PRN IVP Nausea & Vomiting 12/26/17 16:00 01/19/18 15:59 01/04/18 12:11 Polyethylene Glycol (Miralax) 17 gm BEDTIME ORAL 12/26/17 21:00 01/22/18 20:59 01/05/18 20:40 Promethazine HCl/ Codeine (Phenergan with Codeine) 5 ml Q6H PRN ORAL cough 12/26/17 16:01 01/23/18 16:00 Risperidone (RisperDAL) 1 mg BID ORAL 12/26/17 18:00 01/20/18 13:14 01/06/18 08:49 Sennosides (Senokot) 1 tab DAILY ORAL 12/27/17 09:00 01/22/18 14:59 01/05/18 08:56 Vitamin A/Vitamin D (A & D Oint) 1 applic EVERY 12 HOURS TOPIC 12/26/17 21:00 01/20/18 22:59 01/06/18 08:55 Item Value Date Time Bedside Blood Glucose 89 mg/dl 01/06/18 0850 Bedside Blood Glucose 89 mg/dl 01/06/18 0630 Bedside Blood Glucose 175 mg/dl H 01/05/182045 FEMI MCKEON Jan 06, 2018 10:16
[2018-01-06 12:00] VITALS: BP 124/71
[2018-01-06 16:00] VITALS: BP 121/73
[2018-01-06 20:00] VITALS: BP 119/65
[2018-01-06] MEDS: Miralax 17gm pkt ORAL SCH (20:38)
--- NOTE | 2018-01-06 21:40 | Pulmonology Progress Note ---
Assessment/Plan Problems: (1) Acute and chronic respiratory failure (2) COPD (chronic obstructive pulmonary disease) (3) Hepatitis C Assessment/Plan no new complains all reviewed no new events no new complains respiratory treatment BP controlled dc planning in progress Subjective ROS Limited/Unobtainable: No Constitutional: Reports: no symptoms HEENT: Repors: no symptoms Respiratory: Reports: no symptoms Allergies: Coded Allergies: Shrimp (Unverified Allergy, Unknown, 12/04/17) Objective Last 24 Hour Vital Signs Date Time Temp Pulse Resp B/P (MAP) Pulse Ox O2 Delivery O2 Flow Rate FiO2 01/06/18 20:00 97.3 101 18 119/65 99 97.3 01/06/18 19:52 Nasal Cannula 2.0 28 01/06/18 19:52 97 Nasal Cannula 2.0 28 01/06/18 16:00 96.3 103 20 121/73 99 Room Air 2.0 96.3 01/06/18 12:00 97.2 104 20 124/71 94 Nasal Cannula 2.0 97.2 01/06/18 08:49 102 113/66 01/06/18 08:00 96.3 102 18 113/66 93 Room Air 96.3 01/06/18 07:45 98 Nasal Cannula 2.0 28 01/06/18 07:45 Nasal Cannula 2.0 28 01/06/18 04:00 96.6 90 18 104/65 100 96.6 01/05/18 23:58 97.6 100 18 124/71 99 97.6 Intake and Output 01/05/18 01/06/18 19:00 07:00 Intake Total 500 ml 240 ml Balance 500 ml 240 ml Intake Oral 500 ml 240 ml # Voids 2 5 # Bowel Movements 1 2 Objective General Appearance: cachetic HEENT: normocephalic Respiratory/Chest: chest wall non-tender, lungs clear Breasts: no masses Cardiovascular: normal peripheral pulses, normal rate Abdomen: normal bowel sounds, soft, non tender Extremities: no cyanosis, no clubbing 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, no motor/sensory deficits Lymphatic: no neck adenopathy Current Medications Medications (Trade) Dose Ordered Sig/Hansel Route PRN Reason Start Time Stop Time Status Last Admin Dose Admin Acetaminophen (Tylenol) 650 mg Q4H PRN ORAL T>100.5 12/30/17 07:31 5/5/18 15:30 01/02/18 08:12 Amlodipine Besylate (Norvasc) 5 mg DAILY ORAL 12/27/17 09:00 01/20/18 08:59 01/05/18 08:56 Clonidine HCl (Catapres Tab) 0.1 mg Q4H PRN ORAL sbp more than 160mmHg 12/26/17 15:31 01/23/18 15:30 Dextrose (Dextrose 50%) 25 ml STAT PRN IV Blood Sugar btwn 60-69 mg/dL 12/26/17 15:33 01/25/18 15:32 01/04/18 16:45 Dextrose (Dextrose 50%) 50 ml STAT PRN IV BS less than 60mg/dl 12/26/17 15:34 01/25/18 15:33 Docusate Sodium (Colace) 100 mg THREE TIMES A DAY ORAL 12/26/17 18:00 01/22/18 09:59 01/06/18 17:12 Heparin Sodium (Porcine) (Heparin 5000 units/ml) 5,000 units EVERY 12 HOURS SUBQ 12/26/17 21:00 01/20/18 08:59 01/06/18 20:39 Insulin Aspart (NovoLOG) BEFORE MEALS AND HS SUBQ 12/26/17 16:30 01/22/18 20:59 01/06/18 20:42 Insulin Aspart (NovoLOG) 12 units NOVOTIAC SUBQ 01/01/18 11:50 01/23/18 11:49 01/06/18 12:29 Insulin Detemir (Levemir) 12 units EVERY 12 HOURS SUBQ 01/06/18 21:00 01/23/18 20:59 Methylprednisolone Sodium Succinate (Solu-MEDROL) 60 mg DAILY IV 12/27/17 09:00 01/20/18 00:00 01/06/18 08:49 Mineral Oil (Fleet's Mineral Oil Enema) 133 ml EVERY OTHER DAY RECTAL 12/27/17 09:00 01/22/18 09:59 01/06/18 08:48 Nitroglycerin (Ntg) 0.4 mg Q5M X 3 DOSES PRN SL Prn Chest Pain 12/26/17 15:59 01/19/18 15:58 Ondansetron HCl (Zofran) 4 mg Q6H PRN IVP Nausea & Vomiting 12/26/17 16:00 01/19/18 15:59 01/04/18 12:11 Polyethylene Glycol (Miralax) 17 gm BEDTIME ORAL 12/26/17 21:00 01/22/18 20:59 01/06/18 20:38 Promethazine HCl/ Codeine (Phenergan with Codeine) 5 ml Q6H PRN ORAL cough 12/26/17 16:01 01/23/18 16:00 Risperidone (RisperDAL) 1 mg BID ORAL 12/26/17 18:00 01/20/18 13:14 01/06/18 17:12 Sennosides (Senokot) 1 tab DAILY ORAL 12/27/17 09:00 01/22/18 14:59 01/05/18 08:56 Vitamin A/Vitamin D (A & D Oint) 1 applic EVERY 12 HOURS TOPIC 12/26/17 21:00 01/20/18 22:59 01/06/18 20:42 Leni Watts MD Jan 06, 2018 21:40
--- NOTE | 2018-01-06 23:43 | General Progress Note ---
Assessment/Plan Assessment/Plan #. Thrombocytopenia, secondary to hepatitis C --> Hep A and C antibody test (+) --> Improving. Transfuse if platelets <20k #. Leukopenia, likely secondary to hepatitis C, currently improved. --> No leukocytosis is noted. The patient has been afebrile. --> Resolved at this time. #. Anemia due to underlying chronic disease. --> Continue to closely monitor. --> Blood transfusion not required unless symptomatic or hgb <7 --> Reviewed anemia workup. Iron 110, TIBC 230, Ferritin 90, B12 821, Folate 6.6 , TSH 1.4 --> Hemoglobin stable, blood transfusion not needed at this time #. Acute on hypoxic respiratory failure, status post tracheostomy, improved. #. Hepatitis C. Management as an outpatient. --> Appreciate Infectious Disease service evaluation. #. Hypertension. Systolic blood pressure goal less than 140. --> Improved. #. COPD. DC Planning. Subjective Date patient seen: Jan 06, 2018 Constitutional: Denies: no symptoms, chills, diaphoresis, fever, malaise, weakness, other HEENT: Denies: no symptoms, eye pain, blurred vision, tearing, double vision, ear pain, ear discharge, nose pain, nose congestion, throat pain, throat swelling, mouth pain, mouth swelling, other Cardiovascular: Denies: no symptoms, chest pain, edema, irregular heart rate, lightheadedness, palpitations, syncope, other Respiratory: Denies: no symptoms, cough, orthopnea, shortness of breath, SOB with excertion, SOB at rest, sputum, stridor, wheezing, other Gastrointestinal/Abdominal: Denies: no symptoms, abdomen distended, abdominal pain, black stools, tarry stools, blood in stool, constipated, diarrhea, difficulty swallowing, nausea, poor appetite, poor fluid intake, rectal bleeding , vomiting, other Genitourinary: Denies: no symptoms, burning, discharge, frequency, flank pain, hematuria, incontinence, pain, urgency, other Neurologic/Psychiatric: Denies: no symptoms, anxiety, depressed, emotional problems, headache, numbness, paresthesia, pre-existing deficit, seizure, tingling, tremors, weakness, other Allergies: Coded Allergies: Shrimp (Unverified Allergy, Unknown, 12/04/17) Subjective Pending placement. No acute events overnight. Afebrile. Objective Last 24 Hour Vital Signs Date Time Temp Pulse Resp B/P (MAP) Pulse Ox O2 Delivery O2 Flow Rate FiO2 01/06/18 20:00 97.3 101 18 119/65 99 97.3 01/06/18 19:52 Nasal Cannula 2.0 28 01/06/18 19:52 97 Nasal Cannula 2.0 28 01/06/18 16:00 96.3 103 20 121/73 99 Room Air 2.0 96.3 01/06/18 12:00 97.2 104 20 124/71 94 Nasal Cannula 2.0 97.2 01/06/18 08:49 102 113/66 01/06/18 08:00 96.3 102 18 113/66 93 Room Air 96.3 01/06/18 07:45 98 Nasal Cannula 2.0 28 01/06/18 07:45 Nasal Cannula 2.0 28 01/06/18 04:00 96.6 90 18 104/65 100 96.6 01/05/18 23:58 97.6 100 18 124/71 99 97.6 Intake and Output 01/05/18 01/06/18 19:00 07:00 Intake Total 500 ml 240 ml Balance 500 ml 240 ml Intake Oral 500 ml 240 ml # Voids 2 5 # Bowel Movements 1 2 Height (Feet): 5 Height (Inches): 4.00 Weight (Pounds): 146 General Appearance: no apparent distress, confused Respiratory/Chest: decreased breath sounds Abdomen: normal bowel sounds PEPITO PRADO Jan 06, 2018 23:43
[2018-01-07] VITALS: BP 128/75
[2018-01-07 04:00] VITALS: BP 130/65
[2018-01-07] MEDS: NovoLOG Insulin Flexpen SUBQ SCH ×7 (06:22→21:08)
[2018-01-07 08:00] VITALS: BP 110/65
[2018-01-07] MEDS: Docusate 100mg cap ORAL SCH ×3 (08:56→17:10)
[2018-01-07] MEDS: Solu-MEDROL 125mg Inj IV SCH (08:56)
[2018-01-07] MEDS: Levemir Flexpen SUBQ SCH ×2 (08:58→21:07)
[2018-01-07] MEDS: Heparin 5000 units/ml inj SUBQ SCH ×2 (08:58→21:00)
[2018-01-07] MEDS: Sennosides 8.6mg ORAL SCH (09:00)
[2018-01-07] MEDS: Vitamin A&D Oint 2oz Tube TOPIC SCH ×2 (09:01→21:08)
--- NOTE | 2018-01-07 10:59 | Infectious Diseases Prog Note ---
Assessment/Plan Assessment/Plan Assessment: Acute hypoxic resp failure improved COPD exacerbation- -CXR: No acute disease Afebrile, no leukocytosis Recent acute hypoxic failure and PNA 11/2015 -sp cx 12/04: E.coli (davila S), P. mirabilis (davila S) Influenza sc : Neg transaminitis improving Hx of Hep C Hep panel : A Imm HIV Neg hx of trach s/p removal COPD Dm2 HTN [facility] resident Plan: - Monitor pt off of AB Rx -12/24 SP Levaquin # 5 /5 -12/10 SP Cefepime #7 -12/06 SP Vanco #3 -Monitor CBC/BMP, temperatures -aspiration precautions Hem fup, re TCP Hep C fup and probable need for Hep B Vax as out pt Subjective Allergies: Coded Allergies: Shrimp (Unverified Allergy, Unknown, 12/04/17) Subjective afebrile off abx no leukcoytosis Objective Vital Signs Last 24 Hour Vital Signs Date Time Temp Pulse Resp B/P (MAP) Pulse Ox O2 Delivery O2 Flow Rate FiO2 01/07/18 08:56 89 103/65 01/07/18 04:00 97.3 85 19 130/65 100 97.3 01/07/18 00:00 98.1 108 20 128/75 99 98.1 01/07/18 00:00 Nasal Cannula 2.0 01/06/18 20:00 Nasal Cannula 2.0 01/06/18 20:00 97.3 101 18 119/65 99 97.3 01/06/18 19:52 Nasal Cannula 2.0 28 01/06/18 19:52 97 Nasal Cannula 2.0 28 01/06/18 16:00 96.3 103 20 121/73 99 Room Air 2.0 96.3 01/06/18 12:00 97.2 104 20 124/71 94 Nasal Cannula 2.0 97.2 Height (Feet): 5 Height (Inches): 4.00 Weight (Pounds): 146 Objective General Appearance: cachetic HEENT: normocephalic Respiratory/Chest: chest wall non-tender, lungs clear Breasts: no masses Cardiovascular: normal peripheral pulses, normal rate Abdomen: normal bowel sounds, soft, non tender Extremities: no cyanosis, no clubbing 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, no motor/sensory deficits Lymphatic: no neck adenopathy Current Medications Medications (Trade) Dose Ordered Sig/Hansel Route PRN Reason Start Time Stop Time Status Last Admin Dose Admin Acetaminophen (Tylenol) 650 mg Q4H PRN ORAL T>100.5 12/30/17 07:31 01/19/18 15:30 01/02/18 08:12 Amlodipine Besylate (Norvasc) 5 mg DAILY ORAL 12/27/17 09:00 01/20/18 08:59 01/07/18 08:56 Clonidine HCl (Catapres Tab) 0.1 mg Q4H PRN ORAL sbp more than 160mmHg 12/26/17 15:31 01/23/18 15:30 Dextrose (Dextrose 50%) 25 ml STAT PRN IV Blood Sugar btwn 60-69 mg/dL 12/26/17 15:33 01/25/18 15:32 01/04/18 16:45 Dextrose (Dextrose 50%) 50 ml STAT PRN IV BS less than 60mg/dl 12/26/17 15:34 01/25/18 15:33 Docusate Sodium (Colace) 100 mg THREE TIMES A DAY ORAL 12/26/17 18:00 01/22/18 09:59 01/07/18 08:56 Heparin Sodium (Porcine) (Heparin 5000 units/ml) 5,000 units EVERY 12 HOURS SUBQ 12/26/17 21:00 01/20/18 08:59 01/07/18 08:58 Insulin Aspart (NovoLOG) BEFORE MEALS AND HS SUBQ 12/26/17 16:30 01/22/18 20:59 01/07/18 06:22 Insulin Aspart (NovoLOG) 12 units NOVOTIAC SUBQ 01/01/18 11:50 01/23/18 11:49 01/07/18 06:23 Insulin Detemir (Levemir) 12 units EVERY 12 HOURS SUBQ 01/06/18 21:00 01/23/18 20:59 01/07/18 08:58 Methylprednisolone Sodium Succinate (Solu-MEDROL) 60 mg DAILY IV 12/27/17 09:00 01/20/18 00:00 01/07/18 08:56 Mineral Oil (Fleet's Mineral Oil Enema) 133 ml EVERY OTHER DAY RECTAL 12/27/17 09:00 01/22/18 09:59 01/06/18 08:48 Nitroglycerin (Ntg) 0.4 mg Q5M X 3 DOSES PRN SL Prn Chest Pain 12/26/17 15:59 01/19/18 15:58 Ondansetron HCl (Zofran) 4 mg Q6H PRN IVP Nausea & Vomiting 12/26/17 16:00 01/19/18 15:59 01/04/18 12:11 Polyethylene Glycol (Miralax) 17 gm BEDTIME ORAL 12/26/17 21:00 01/22/18 20:59 01/06/18 20:38 Promethazine HCl/ Codeine (Phenergan with Codeine) 5 ml Q6H PRN ORAL cough 12/26/17 16:01 01/23/18 16:00 Risperidone (RisperDAL) 1 mg BID ORAL 12/26/17 18:00 01/20/18 13:14 01/07/18 08:56 Sennosides (Senokot) 1 tab DAILY ORAL 12/27/17 09:00 01/22/18 14:59 01/07/18 09:00 Vitamin A/Vitamin D (A & D Oint) 1 applic EVERY 12 HOURS TOPIC 12/26/17 21:00 01/20/18 22:59 01/07/18 09:01 Caterina Elizondo M.D. Jan 07, 2018 10:59
[2018-01-07 12:00] VITALS: BP 116/69
--- NOTE | 2018-01-07 13:49 | General Progress Note ---
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 no agitation. the pt has impairment of memory. Objective Last 24 Hour Vital Signs Date Time Temp Pulse Resp B/P (MAP) Pulse Ox O2 Delivery O2 Flow Rate FiO2 01/07/18 08:56 89 103/65 01/07/18 08:00 97.3 89 20 110/65 98 Nasal Cannula 2.0 97.3 01/07/18 04:00 97.3 85 19 130/65 100 97.3 01/07/18 00:00 98.1 108 20 128/75 99 98.1 01/07/18 00:00 Nasal Cannula 2.0 01/06/18 20:00 Nasal Cannula 2.0 01/06/18 20:00 97.3 101 18 119/65 99 97.3 01/06/18 19:52 Nasal Cannula 2.0 28 01/06/18 19:52 97 Nasal Cannula 2.0 28 01/06/18 16:00 96.3 103 20 121/73 99 Room Air 2.0 96.3 Intake and Output 01/06/18 01/07/18 19:00 07:00 Intake Total 720 ml 480 ml Balance 720 ml 480 ml Intake Oral 720 ml 480 ml # Voids 5 5 # Bowel Movements 1 Height (Feet): 5 Height (Inches): 4.00 Weight (Pounds): 146 General Appearance: WD/WN, no apparent distress, alert Neurologic: alert, oriented x 3, responsive, depressed affect Grisel Jay M.D. Jan 07, 2018 13:49
--- NOTE | 2018-01-07 13:52 | Psych Consult Progress Note ---
Psych Consult Progress Note Consult 01/06/18 encephalopathy psychosis due to [facility] [place] Ativan Vital Signs Last 24 Hour Vital Signs Date Time Temp Pulse Resp B/P (MAP) Pulse Ox O2 Delivery O2 Flow Rate FiO2 01/07/18 08:56 89 103/65 01/07/18 08:00 97.3 89 20 110/65 98 Nasal Cannula 2.0 97.3 01/07/18 04:00 97.3 85 19 130/65 100 97.3 01/07/18 00:00 98.1 108 20 128/75 99 98.1 01/07/18 00:00 Nasal Cannula 2.0 01/06/18 20:00 Nasal Cannula 2.0 01/06/18 20:00 97.3 101 18 119/65 99 97.3 01/06/18 19:52 Nasal Cannula 2.0 28 01/06/18 19:52 97 Nasal Cannula 2.0 28 01/06/18 16:00 96.3 103 20 121/73 99 Room Air 2.0 96.3 Medications Current Medications Medications (Trade) Dose Ordered Sig/Hansel Route PRN Reason Start Time Stop Time Status Last Admin Dose Admin Acetaminophen (Tylenol) 650 mg Q4H PRN ORAL T>100.5 12/30/17 07:31 01/19/18 15:30 01/02/18 08:12 Amlodipine Besylate (Norvasc) 5 mg DAILY ORAL 12/27/17 09:00 01/20/18 08:59 01/07/18 08:56 Clonidine HCl (Catapres Tab) 0.1 mg Q4H PRN ORAL sbp more than 160mmHg 12/26/17 15:31 01/23/18 15:30 Dextrose (Dextrose 50%) 25 ml STAT PRN IV Blood Sugar btwn 60-69 mg/dL 12/26/17 15:33 01/25/18 15:32 01/04/18 16:45 Dextrose (Dextrose 50%) 50 ml STAT PRN IV BS less than 60mg/dl 12/26/17 15:34 01/25/18 15:33 Docusate Sodium (Colace) 100 mg THREE TIMES A DAY ORAL 12/26/17 18:00 01/22/18 09:59 01/07/18 12:41 Heparin Sodium (Porcine) (Heparin 5000 units/ml) 5,000 units EVERY 12 HOURS SUBQ 12/26/17 21:00 01/20/18 08:59 01/07/18 08:58 Insulin Aspart (NovoLOG) BEFORE MEALS AND HS SUBQ 12/26/17 16:30 01/22/18 20:59 01/07/18 11:41 Insulin Aspart (NovoLOG) 12 units NOVOTIAC SUBQ 01/01/18 11:50 01/23/18 11:49 01/07/18 11:41 Insulin Detemir (Levemir) 12 units EVERY 12 HOURS SUBQ 01/06/18 21:00 01/23/18 20:59 01/07/18 08:58 Methylprednisolone Sodium Succinate (Solu-MEDROL) 60 mg DAILY IV 12/27/17 09:00 01/20/18 00:00 01/07/18 08:56 Mineral Oil (Fleet's Mineral Oil Enema) 133 ml EVERY OTHER DAY RECTAL 12/27/17 09:00 01/22/18 09:59 01/06/18 08:48 Nitroglycerin (Ntg) 0.4 mg Q5M X 3 DOSES PRN SL Prn Chest Pain 12/26/17 15:59 01/19/18 15:58 Ondansetron HCl (Zofran) 4 mg Q6H PRN IVP Nausea & Vomiting 12/26/17 16:00 01/19/18 15:59 01/04/18 12:11 Polyethylene Glycol (Miralax) 17 gm BEDTIME ORAL 12/26/17 21:00 01/22/18 20:59 01/06/18 20:38 Promethazine HCl/ Codeine (Phenergan with Codeine) 5 ml Q6H PRN ORAL cough 12/26/17 16:01 01/23/18 16:00 Risperidone (RisperDAL) 1 mg BID ORAL 12/26/17 18:00 01/20/18 13:14 01/07/18 08:56 Sennosides (Senokot) 1 tab DAILY ORAL 12/27/17 09:00 01/22/18 14:59 01/07/18 09:00 Vitamin A/Vitamin D (A & D Oint) 1 applic EVERY 12 HOURS TOPIC 12/26/17 21:00 01/20/18 22:59 4/23/18 09:01 Problems: (1) Hyperkalemia (2) Acidosis (3) CO2 retention (4) Respiratory distress Status: Acute (5) COPD (chronic obstructive pulmonary disease) (6) Hepatitis C (7) Acute and chronic respiratory failure (8) Diabetes mellitus out of control (9) Tachycardia (10) Hypertension Grisel Jay M.D. Jan 07, 2018 13:52
[2018-01-07 16:00] VITALS: BP 126/65
[2018-01-07 19:47] VITALS: BP 113/68
[2018-01-07] MEDS: Miralax 17gm pkt ORAL SCH (21:00)
--- NOTE | 2018-01-07 21:51 | Geriatric Progress Note ---
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 PLAN: 1. We will start the patient on Prozac 20 mg in the morning. 2. Ativan 1 mg every 6 hours p.r.n. 3. Zyprexa 5 mg at bedtime for delirium. 4. We will continue to follow and readjust the medications. Subjective Interval Events 01/05/18 Mood/Memory: Reports: prior hx, anxiety, depressed feelings, emotional problems Geriatric Geriatric Last 24 Hour Vital Signs Date Time Temp Pulse Resp B/P (MAP) Pulse Ox O2 Delivery O2 Flow Rate FiO2 01/07/18 19:47 97.9 119 20 113/68 100 Room Air 97.9 01/07/18 16:00 97.8 100 20 126/65 98 97.8 01/07/18 12:00 98.2 90 20 116/69 99 Nasal Cannula 2.0 98.2 01/07/18 08:56 89 103/65 01/07/18 08:00 97.3 89 20 110/65 98 Nasal Cannula 2.0 97.3 01/07/18 04:00 97.3 85 19 130/65 100 97.3 01/07/18 00:00 98.1 108 20 128/75 99 98.1 01/07/18 00:00 Nasal Cannula 2.0 Intake and Output 01/06/18 01/07/18 19:00 07:00 Intake Total 720 ml 480 ml Balance 720 ml 480 ml Intake Oral 720 ml 480 ml # Voids 5 5 # Bowel Movements 1 Current Medications Medications (Trade) Dose Ordered Sig/Hansel Route PRN Reason Start Time Stop Time Status Last Admin Dose Admin Acetaminophen (Tylenol) 650 mg Q4H PRN ORAL T>100.5 12/30/17 07:31 01/19/18 15:30 01/02/18 08:12 Amlodipine Besylate (Norvasc) 5 mg DAILY ORAL 12/27/17 09:00 01/20/18 08:59 01/07/18 08:56 Clonidine HCl (Catapres Tab) 0.1 mg Q4H PRN ORAL sbp more than 160mmHg 12/26/17 15:31 01/23/18 15:30 Dextrose (Dextrose 50%) 25 ml STAT PRN IV Blood Sugar btwn 60-69 mg/dL 12/26/17 15:33 01/25/18 15:32 01/04/18 16:45 Dextrose (Dextrose 50%) 50 ml STAT PRN IV BS less than 60mg/dl 12/26/17 15:34 01/25/18 15:33 Docusate Sodium (Colace) 100 mg THREE TIMES A DAY ORAL 12/26/17 18:00 01/22/18 09:59 01/07/18 17:10 Heparin Sodium (Porcine) (Heparin 5000 units/ml) 5,000 units EVERY 12 HOURS SUBQ 12/26/17 21:00 01/20/18 08:59 01/07/18 08:58 Insulin Aspart (NovoLOG) BEFORE MEALS AND HS SUBQ 12/26/17 16:30 01/22/18 20:59 01/07/18 21:08 Insulin Aspart (NovoLOG) 12 units NOVOTIAC SUBQ 01/01/18 11:50 01/23/18 11:49 01/07/18 16:57 Insulin Detemir (Levemir) 12 units EVERY 12 HOURS SUBQ 01/06/18 21:00 01/23/18 20:59 01/07/18 21:07 Methylprednisolone Sodium Succinate (Solu-MEDROL) 60 mg DAILY IV 12/27/17 09:00 01/20/18 00:00 01/07/18 08:56 Mineral Oil (Fleet's Mineral Oil Enema) 133 ml EVERY OTHER DAY RECTAL 12/27/17 09:00 01/22/18 09:59 01/06/18 08:48 Nitroglycerin (Ntg) 0.4 mg Q5M X 3 DOSES PRN SL Prn Chest Pain 12/26/17 15:59 01/19/18 15:58 Ondansetron HCl (Zofran) 4 mg Q6H PRN IVP Nausea & Vomiting 12/26/17 16:00 01/19/18 15:59 01/04/18 12:11 Polyethylene Glycol (Miralax) 17 gm BEDTIME ORAL 12/26/17 21:00 01/22/18 20:59 01/06/18 20:38 Promethazine HCl/ Codeine (Phenergan with Codeine) 5 ml Q6H PRN ORAL cough 12/26/17 16:01 01/23/18 16:00 Risperidone (RisperDAL) 1 mg BID ORAL 12/26/17 18:00 01/20/18 13:14 01/07/18 17:10 Sennosides (Senokot) 1 tab DAILY ORAL 12/27/17 09:00 01/22/18 14:59 01/07/18 09:00 Vitamin A/Vitamin D (A & D Oint) 1 applic EVERY 12 HOURS TOPIC 12/26/17 21:00 01/20/18 22:59 01/07/18 21:08 Height (Feet): 5 Height (Inches): 4.00 Weight (Pounds): 146 General Appearance: well appearing, well nourished, alert Psychiatric Orientation: person, place, situation Grisel Jay M.D. Jan 07, 2018 21:51
--- NOTE | 2018-01-07 23:57 | General Progress Note ---
Assessment/Plan Assessment/Plan #. Thrombocytopenia, secondary to hepatitis C --> Hep A and C antibody test (+) --> Improving. Transfuse if platelets <20k #. Leukopenia, likely secondary to hepatitis C, currently improved. --> No leukocytosis is noted. The patient has been afebrile. --> Resolved at this time. #. Anemia due to underlying chronic disease. --> Continue to closely monitor. --> Blood transfusion not required unless symptomatic or hgb <7 --> Reviewed anemia workup. Iron 110, TIBC 230, Ferritin 90, B12 821, Folate 6.6 , TSH 1.4 --> Hemoglobin stable, blood transfusion not needed at this time #. Acute on hypoxic respiratory failure, status post tracheostomy, improved. #. Hepatitis C. Management as an outpatient. --> Appreciate Infectious Disease service evaluation. #. Hypertension. Systolic blood pressure goal less than 140. --> Improved. #. COPD. #. Encephalopathy. DC Planning. Subjective Date patient seen: Jan 07, 2018 Constitutional: Denies: no symptoms, chills, diaphoresis, fever, malaise, weakness, other HEENT: Denies: no symptoms, eye pain, blurred vision, tearing, double vision, ear pain, ear discharge, nose pain, nose congestion, throat pain, throat swelling, mouth pain, mouth swelling, other Cardiovascular: Denies: no symptoms, chest pain, edema, irregular heart rate, lightheadedness, palpitations, syncope, other Respiratory: Denies: no symptoms, cough, orthopnea, shortness of breath, SOB with excertion, SOB at rest, sputum, stridor, wheezing, other Gastrointestinal/Abdominal: Denies: no symptoms, abdomen distended, abdominal pain, black stools, tarry stools, blood in stool, constipated, diarrhea, difficulty swallowing, nausea, poor appetite, poor fluid intake, rectal bleeding , vomiting, other Genitourinary: Denies: no symptoms, burning, discharge, frequency, flank pain, hematuria, incontinence, pain, urgency, other Neurologic/Psychiatric: Denies: no symptoms, anxiety, depressed, emotional problems, headache, numbness, paresthesia, pre-existing deficit, seizure, tingling, tremors, weakness, other Hematologic/Lymphatic: Reports: anemia Allergies: Coded Allergies: Shrimp (Unverified Allergy, Unknown, 12/04/17) Subjective Pending placement. Confused. No new events. Objective Last 24 Hour Vital Signs Date Time Temp Pulse Resp B/P (MAP) Pulse Ox O2 Delivery O2 Flow Rate FiO2 01/07/18 20:00 Room Air 01/07/18 19:47 97.9 119 20 113/68 100 Room Air 97.9 01/07/18 16:00 97.8 100 20 126/65 98 97.8 01/07/18 12:00 98.2 90 20 116/69 99 Nasal Cannula 2.0 98.2 01/07/18 08:56 89 103/65 01/07/18 08:00 97.3 89 20 110/65 98 Nasal Cannula 2.0 97.3 01/07/18 04:00 97.3 85 19 130/65 100 97.3 01/07/18 00:00 98.1 108 20 128/75 99 98.1 01/07/18 00:00 Nasal Cannula 2.0 Intake and Output 01/06/18 01/07/18 19:00 07:00 Intake Total 720 ml 480 ml Balance 720 ml 480 ml Intake Oral 720 ml 480 ml # Voids 5 5 # Bowel Movements 1 Height (Feet): 5 Height (Inches): 4.00 Weight (Pounds): 146 General Appearance: confused Neck: normal alignment Cardiovascular: normal rate, regular rhythm Respiratory/Chest: decreased breath sounds Abdomen: non tender, soft PEPITO PRADO Jan 07, 2018 23:57
[2018-01-08] VITALS (7 sets, daily range): BP systolic 115–121; BP diastolic 59–73
[2018-01-08 05:10] LABS: HEMATOCRIT 36.1 % (37.0-47.0); HEMOGLOBIN 11.3 G/DL (12.0-16.0); MEAN CORPUSCULAR VOLUME 86 FL (80-99); PLATELET COUNT 95 K/UL (150-450); RED BLOOD COUNT 4.22 M/UL (4.20-5.40); RED CELL DISTRIBUTION WIDTH 14.7 % (11.6-14.8); WHITE BLOOD COUNT 7.6 K/UL (4.8-10.8)
[2018-01-08 05:50] LABS: ALANINE AMINOTRANSFERASE 39 U/L (12-78); ALBUMIN/GLOBULIN RATIO 0.9 (1.0-2.7); ALKALINE PHOSPHATASE 44 U/L (46-116); ANION GAP 2 mmol/L (5-15); ASPARTATE AMINO TRANSFERASE 16 U/L (15-37); BILIRUBIN,TOTAL 0.5 MG/DL (0.2-1.0); BLOOD UREA NITROGEN 34 mg/dL (7-18); CALCIUM 9.5 MG/DL (8.5-10.1); CARBON DIOXIDE 37 MMOL/L (21-32); CHLORIDE 105 MMOL/L (98-107); PHOSPHORUS 3.2 MG/DL (2.5-4.9); POTASSIUM 4.7 MMOL/L (3.5-5.1); SODIUM 144 MMOL/L (136-145)
[2018-01-08] MEDS: NovoLOG Insulin Flexpen SUBQ SCH ×7 (06:18→21:30)
[2018-01-08] MEDS: Solu-MEDROL 125mg Inj IV SCH (08:54)
[2018-01-08] MEDS: Docusate 100mg cap ORAL SCH ×3 (08:54→17:26)
[2018-01-08] MEDS: Sennosides 8.6mg ORAL SCH (08:54)
[2018-01-08] MEDS: Levemir Flexpen SUBQ SCH ×2 (08:56→21:28)
[2018-01-08] MEDS: Vitamin A&D Oint 2oz Tube TOPIC SCH ×2 (09:00→21:27)
[2018-01-08] MEDS: Fleet's Mineral Oil Enema RECTAL SCH (09:00)
[2018-01-08] MEDS: Heparin 5000 units/ml inj SUBQ SCH ×2 (09:00→20:01)
--- NOTE | 2018-01-08 12:31 | Infectious Diseases Prog Note ---
Assessment/Plan Assessment/Plan Assessment: Acute hypoxic resp failure improved COPD exacerbation- -CXR: No acute disease Afebrile, no leukocytosis Recent acute hypoxic failure and PNA 11/2015 -sp cx 12/04: E.coli (davila S), P. mirabilis (davila S) Influenza sc : Neg transaminitis improving Hx of Hep C Hep panel : A Imm HIV Neg hx of trach s/p removal COPD Dm2 HTN NH resident Plan: - Monitor pt off of AB Rx -12/24 SP Levaquin # 5 /5 -12/10 SP Cefepime #7 -12/06 SP Vanco #3 -Monitor CBC/BMP, temperatures -aspiration precautions Hem fup, re TCP Hep C fup and probable need for Hep B Vax as out pt Subjective Allergies: Coded Allergies: Shrimp (Unverified Allergy, Unknown, 12/04/17) Subjective afebrile off abx no leukcoytosis Objective Vital Signs Last 24 Hour Vital Signs Date Time Temp Pulse Resp B/P (MAP) Pulse Ox O2 Delivery O2 Flow Rate FiO2 01/08/18 08:54 104 115/65 01/08/18 08:00 97.7 104 20 115/65 95 97.7 01/08/18 04:38 Room Air 01/08/18 04:00 97.8 102 16 118/69 99 97.8 01/08/18 01:11 Room Air 01/08/18 00:00 97.7 111 16 115/67 97 97.7 01/07/18 20:00 Room Air 01/07/18 19:47 97.9 119 20 113/68 100 Room Air 97.9 01/07/18 16:00 97.8 100 20 126/65 98 97.8 Height (Feet): 5 Height (Inches): 4.00 Weight (Pounds): 148 Objective General Appearance: cachetic HEENT: normocephalic Respiratory/Chest: chest wall non-tender, lungs clear Breasts: no masses Cardiovascular: normal peripheral pulses, normal rate Abdomen: normal bowel sounds, soft, non tender Extremities: no cyanosis, no clubbing 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, no motor/sensory deficits Lymphatic: no neck adenopathy Laboratory Tests Test 01/08/18 04:45 White Blood Count 7.6 K/UL (4.8-10.8) Red Blood Count 4.22 M/UL (4.20-5.40) Hemoglobin 11.3 G/DL (12.0-16.0) L Hematocrit 36.1 % (37.0-47.0) L Mean Corpuscular Volume 86 FL (80-99) Mean Corpuscular Hemoglobin 26.7 PG (27.0-31.0) L Mean Corpuscular Hemoglobin Concent 31.2 G/DL (32.0-36.0) L Red Cell Distribution Width 14.7 % (11.6-14.8) Platelet Count 95 K/UL (150-450) L Mean Platelet Volume 7.6 FL (6.5-10.1) Neutrophils (%) (Auto) % (45.0-75.0) Lymphocytes (%) (Auto) % (20.0-45.0) Monocytes (%) (Auto) % (1.0-10.0) Eosinophils (%) (Auto) % (0.0-3.0) Basophils (%) (Auto) % (0.0-2.0) Erythrocyte Sedimentation Rate 11 MM/HR (0-30) Sodium Level 144 MMOL/L (136-145) Potassium Level 4.7 MMOL/L (3.5-5.1) Chloride Level 105 MMOL/L (98-107) Carbon Dioxide Level 37 MMOL/L (21-32) H Anion Gap 2 mmol/L (5-15) L Blood Urea Nitrogen 34 mg/dL (7-18) H Creatinine 1.0 MG/DL (0.55-1.30) Estimat Glomerular Filtration Rate > 60 mL/min (>60) Glucose Level 168 MG/DL (74-106) H Calcium Level 9.5 MG/DL (8.5-10.1) Phosphorus Level 3.2 MG/DL (2.5-4.9) Magnesium Level 1.8 MG/DL (1.8-2.4) Total Bilirubin 0.5 MG/DL (0.2-1.0) Aspartate Amino Transf (AST/SGOT) 16 U/L (15-37) Alanine Aminotransferase (ALT/SGPT) 39 U/L (12-78) Alkaline Phosphatase 44 U/L (46-116) L Total Protein 6.4 G/DL (6.4-8.2) Albumin 3.0 G/DL (3.4-5.0) L Globulin 3.4 g/dL Albumin/Globulin Ratio 0.9 (1.0-2.7) L Current Medications Medications (Trade) Dose Ordered Sig/Hansel Route PRN Reason Start Time Stop Time Status Last Admin Dose Admin Acetaminophen (Tylenol) 650 mg Q4H PRN ORAL T>100.5 12/30/17 07:31 01/19/18 15:30 01/02/18 08:12 Amlodipine Besylate (Norvasc) 5 mg DAILY ORAL 12/27/17 09:00 01/20/18 08:59 01/08/18 08:54 Clonidine HCl (Catapres Tab) 0.1 mg Q4H PRN ORAL sbp more than 160mmHg 12/26/17 15:31 01/23/18 15:30 Dextrose (Dextrose 50%) 25 ml STAT PRN IV Blood Sugar btwn 60-69 mg/dL 12/26/17 15:33 01/25/18 15:32 01/04/18 16:45 Dextrose (Dextrose 50%) 50 ml STAT PRN IV BS less than 60mg/dl 12/26/17 15:34 01/25/18 15:33 Docusate Sodium (Colace) 100 mg THREE TIMES A DAY ORAL 12/26/17 18:00 01/22/18 09:59 01/08/18 12:10 Heparin Sodium (Porcine) (Heparin 5000 units/ml) 5,000 units EVERY 12 HOURS SUBQ 12/26/17 21:00 01/20/18 08:59 01/07/18 08:58 Insulin Aspart (NovoLOG) BEFORE MEALS AND HS SUBQ 12/26/17 16:30 01/22/18 20:59 01/08/18 11:24 Insulin Aspart (NovoLOG) 12 units NOVOTIAC SUBQ 01/01/18 11:50 01/23/18 11:49 01/08/18 11:25 Insulin Detemir (Levemir) 12 units EVERY 12 HOURS SUBQ 01/06/18 21:00 01/23/18 20:59 01/08/18 08:56 Methylprednisolone Sodium Succinate (Solu-MEDROL) 60 mg DAILY IV 12/27/17 09:00 01/20/18 00:00 01/08/18 08:54 Mineral Oil (Fleet's Mineral Oil Enema) 133 ml EVERY OTHER DAY RECTAL 12/27/17 09:00 01/22/18 09:59 01/06/18 08:48 Nitroglycerin (Ntg) 0.4 mg Q5M X 3 DOSES PRN SL Prn Chest Pain 12/26/17 15:59 01/19/18 15:58 Ondansetron HCl (Zofran) 4 mg Q6H PRN IVP Nausea & Vomiting 12/26/17 16:00 01/19/18 15:59 01/04/18 12:11 Polyethylene Glycol (Miralax) 17 gm BEDTIME ORAL 12/26/17 21:00 01/22/18 20:59 01/06/18 20:38 Promethazine HCl/ Codeine (Phenergan with Codeine) 5 ml Q6H PRN ORAL cough 12/26/17 16:01 01/23/18 16:00 Risperidone (RisperDAL) 1 mg BID ORAL 12/26/17 18:00 01/20/18 13:14 01/08/18 08:54 Sennosides (Senokot) 1 tab DAILY ORAL 12/27/17 09:00 01/22/18 14:59 01/08/18 08:54 Vitamin A/Vitamin D (A & D Oint) 1 applic EVERY 12 HOURS TOPIC 12/26/17 21:00 01/20/18 22:59 01/08/18 09:00 Caterina Elizondo M.D. Jan 08, 2018 12:31
--- NOTE | 2018-01-08 14:41 | Pulmonology Progress Note ---
Assessment/Plan Problems: (1) Acute and chronic respiratory failure (2) COPD (chronic obstructive pulmonary disease) (3) Hepatitis C Assessment/Plan no new complains all reviewed no new events no new complains respiratory treatment BP controlled dc planning in progress Subjective Interval Events: late note for 01/07, no new complains Allergies: Coded Allergies: Shrimp (Unverified Allergy, Unknown, 12/04/17) Objective Last 24 Hour Vital Signs Date Time Temp Pulse Resp B/P (MAP) Pulse Ox O2 Delivery O2 Flow Rate FiO2 01/08/18 12:00 98.8 118 22 118/64 99 98.8 01/08/18 08:54 104 115/65 01/08/18 08:00 97.7 104 20 115/65 95 97.7 01/08/18 04:38 Room Air 01/08/18 04:00 97.8 102 16 118/69 99 97.8 01/08/18 01:11 Room Air 01/08/18 00:00 97.7 111 16 115/67 97 97.7 01/07/18 20:00 Room Air 01/07/18 19:47 97.9 119 20 113/68 100 Room Air 97.9 01/07/18 16:00 97.8 100 20 126/65 98 97.8 Intake and Output 01/07/18 01/08/18 19:00 07:00 Intake Total 600 ml Balance 600 ml Intake Oral 600 ml # Voids 3 2 # Bowel Movements 2 Objective General Appearance: cachetic HEENT: normocephalic Respiratory/Chest: chest wall non-tender, lungs clear Breasts: no masses Cardiovascular: normal peripheral pulses, normal rate Abdomen: normal bowel sounds, soft, non tender Extremities: no cyanosis, no clubbing 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, no motor/sensory deficits Lymphatic: no neck adenopathy Laboratory Tests 01/08/18 04:45: White Blood Count 7.6, Red Blood Count 4.22, Hemoglobin 11.3L, Hematocrit 36.1L , Mean Corpuscular Volume 86, Mean Corpuscular Hemoglobin 26.7L, Mean Corpuscular Hemoglobin Concent 31.2L, Red Cell Distribution Width 14.7, Platelet Count 95L, Mean Platelet Volume 7.6, Neutrophils (%) (Auto) , Lymphocytes (%) (Auto) , Monocytes (%) (Auto) , Eosinophils (%) (Auto) , Basophils (%) (Auto) , Erythrocyte Sedimentation Rate 11, Sodium Level 144, Potassium Level 4.7, Chloride Level 105, Carbon Dioxide Level 37H, Anion Gap 2L , Blood Urea Nitrogen 34H, Creatinine 1.0, Estimat Glomerular Filtration Rate > 60, Glucose Level 168H, Calcium Level 9.5, Phosphorus Level 3.2, Magnesium Level 1.8, Total Bilirubin 0.5, Aspartate Amino Transf (AST/SGOT) 16, Alanine Aminotransferase (ALT/SGPT) 39, Alkaline Phosphatase 44L, Total Protein 6.4, Albumin 3.0L, Globulin 3.4, Albumin/Globulin Ratio 0.9L Current Medications Medications (Trade) Dose Ordered Sig/Hansel Route PRN Reason Start Time Stop Time Status Last Admin Dose Admin Acetaminophen (Tylenol) 650 mg Q4H PRN ORAL T>100.5 12/30/17 07:31 01/19/18 15:30 01/02/18 08:12 Amlodipine Besylate (Norvasc) 5 mg DAILY ORAL 12/27/17 09:00 01/20/18 08:59 01/08/18 08:54 Clonidine HCl (Catapres Tab) 0.1 mg Q4H PRN ORAL sbp more than 160mmHg 12/26/17 15:31 01/23/18 15:30 Dextrose (Dextrose 50%) 25 ml STAT PRN IV Blood Sugar btwn 60-69 mg/dL 12/26/17 15:33 01/25/18 15:32 01/04/18 16:45 Dextrose (Dextrose 50%) 50 ml STAT PRN IV BS less than 60mg/dl 12/26/17 15:34 01/25/18 15:33 Docusate Sodium (Colace) 100 mg THREE TIMES A DAY ORAL 12/26/17 18:00 01/22/18 09:59 01/08/18 12:10 Heparin Sodium (Porcine) (Heparin 5000 units/ml) 5,000 units EVERY 12 HOURS SUBQ 12/26/17 21:00 01/20/18 08:59 01/07/18 08:58 Insulin Aspart (NovoLOG) BEFORE MEALS AND HS SUBQ 12/26/17 16:30 01/22/18 20:59 01/08/18 11:24 Insulin Aspart (NovoLOG) 12 units NOVOTIAC SUBQ 01/01/18 11:50 01/23/18 11:49 01/08/18 11:25 Insulin Detemir (Levemir) 12 units EVERY 12 HOURS SUBQ 01/06/18 21:00 01/23/18 20:59 01/08/18 08:56 Methylprednisolone Sodium Succinate (Solu-MEDROL) 60 mg DAILY IV 12/27/17 09:00 01/20/18 00:00 01/08/18 08:54 Mineral Oil (Fleet's Mineral Oil Enema) 133 ml EVERY OTHER DAY RECTAL 12/27/17 09:00 01/22/18 09:59 01/06/18 08:48 Nitroglycerin (Ntg) 0.4 mg Q5M X 3 DOSES PRN SL Prn Chest Pain 12/26/17 15:59 01/19/18 15:58 Ondansetron HCl (Zofran) 4 mg Q6H PRN IVP Nausea & Vomiting 12/26/17 16:00 01/19/18 15:59 01/04/18 12:11 Polyethylene Glycol (Miralax) 17 gm BEDTIME ORAL 12/26/17 21:00 01/22/18 20:59 01/06/18 20:38 Promethazine HCl/ Codeine (Phenergan with Codeine) 5 ml Q6H PRN ORAL cough 12/26/17 16:01 01/23/18 16:00 Risperidone (RisperDAL) 1 mg BID ORAL 12/26/17 18:00 01/20/18 13:14 01/08/18 08:54 Sennosides (Senokot) 1 tab DAILY ORAL 12/27/17 09:00 01/22/18 14:59 01/08/18 08:54 Vitamin A/Vitamin D (A & D Oint) 1 applic EVERY 12 HOURS TOPIC 12/26/17 21:00 01/20/18 22:59 01/08/18 09:00 Leni Watts MD Jan 08, 2018 14:41
--- NOTE | 2018-01-08 14:43 | Pulmonology Progress Note ---
Assessment/Plan Problems: (1) Acute and chronic respiratory failure (2) COPD (chronic obstructive pulmonary disease) (3) Hepatitis C Assessment/Plan no new complains all reviewed no new events no new complains respiratory treatment dc steroids BP controlled tachycardia secondary to agitation. dc planning in progress Subjective ROS Limited/Unobtainable: No Interval Events: episodes of agitation Allergies: Coded Allergies: Shrimp (Unverified Allergy, Unknown, 12/04/17) Objective Last 24 Hour Vital Signs Date Time Temp Pulse Resp B/P (MAP) Pulse Ox O2 Delivery O2 Flow Rate FiO2 01/08/18 12:00 98.8 118 22 118/64 99 98.8 01/08/18 08:54 104 115/65 01/08/18 08:00 97.7 104 20 115/65 95 97.7 01/08/18 04:38 Room Air 01/08/18 04:00 97.8 102 16 118/69 99 97.8 01/08/18 01:11 Room Air 01/08/18 00:00 97.7 111 16 115/67 97 97.7 01/07/18 20:00 Room Air 01/07/18 19:47 97.9 119 20 113/68 100 Room Air 97.9 01/07/18 16:00 97.8 100 20 126/65 98 97.8 Intake and Output 01/07/18 01/08/18 19:00 07:00 Intake Total 600 ml Balance 600 ml Intake Oral 600 ml # Voids 3 2 # Bowel Movements 2 Objective General Appearance: cachetic HEENT: normocephalic Respiratory/Chest: chest wall non-tender, lungs clear Breasts: no masses Cardiovascular: normal peripheral pulses, normal rate Abdomen: normal bowel sounds, soft, non tender Extremities: no cyanosis, no clubbing 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, no motor/sensory deficits Lymphatic: no neck adenopathy Laboratory Tests 01/08/18 04:45: White Blood Count 7.6, Red Blood Count 4.22, Hemoglobin 11.3L, Hematocrit 36.1L , Mean Corpuscular Volume 86, Mean Corpuscular Hemoglobin 26.7L, Mean Corpuscular Hemoglobin Concent 31.2L, Red Cell Distribution Width 14.7, Platelet Count 95L, Mean Platelet Volume 7.6, Neutrophils (%) (Auto) , Lymphocytes (%) (Auto) , Monocytes (%) (Auto) , Eosinophils (%) (Auto) , Basophils (%) (Auto) , Erythrocyte Sedimentation Rate 11, Sodium Level 144, Potassium Level 4.7, Chloride Level 105, Carbon Dioxide Level 37H, Anion Gap 2L , Blood Urea Nitrogen 34H, Creatinine 1.0, Estimat Glomerular Filtration Rate > 60, Glucose Level 168H, Calcium Level 9.5, Phosphorus Level 3.2, Magnesium Level 1.8, Total Bilirubin 0.5, Aspartate Amino Transf (AST/SGOT) 16, Alanine Aminotransferase (ALT/SGPT) 39, Alkaline Phosphatase 44L, Total Protein 6.4, Albumin 3.0L, Globulin 3.4, Albumin/Globulin Ratio 0.9L Current Medications Medications (Trade) Dose Ordered Sig/Hansel Route PRN Reason Start Time Stop Time Status Last Admin Dose Admin Acetaminophen (Tylenol) 650 mg Q4H PRN ORAL T>100.5 12/30/17 07:31 01/19/18 15:30 01/02/18 08:12 Amlodipine Besylate (Norvasc) 5 mg DAILY ORAL 12/27/17 09:00 01/20/18 08:59 01/08/18 08:54 Clonidine HCl (Catapres Tab) 0.1 mg Q4H PRN ORAL sbp more than 160mmHg 12/26/17 15:31 01/23/18 15:30 Dextrose (Dextrose 50%) 25 ml STAT PRN IV Blood Sugar btwn 60-69 mg/dL 12/26/17 15:33 01/25/18 15:32 01/04/18 16:45 Dextrose (Dextrose 50%) 50 ml STAT PRN IV BS less than 60mg/dl 12/26/17 15:34 01/25/18 15:33 Docusate Sodium (Colace) 100 mg THREE TIMES A DAY ORAL 12/26/17 18:00 01/22/18 09:59 01/08/18 12:10 Heparin Sodium (Porcine) (Heparin 5000 units/ml) 5,000 units EVERY 12 HOURS SUBQ 12/26/17 21:00 01/20/18 08:59 01/07/18 08:58 Insulin Aspart (NovoLOG) BEFORE MEALS AND HS SUBQ 12/26/17 16:30 01/22/18 20:59 01/08/18 11:24 Insulin Aspart (NovoLOG) 12 units NOVOTIAC SUBQ 01/01/18 11:50 01/23/18 11:49 01/08/18 11:25 Insulin Detemir (Levemir) 12 units EVERY 12 HOURS SUBQ 01/06/18 21:00 01/23/18 20:59 01/08/18 08:56 Methylprednisolone Sodium Succinate (Solu-MEDROL) 60 mg DAILY IV 12/27/17 09:00 01/20/18 00:00 01/08/18 08:54 Mineral Oil (Fleet's Mineral Oil Enema) 133 ml EVERY OTHER DAY RECTAL 12/27/17 09:00 01/22/18 09:59 01/06/18 08:48 Nitroglycerin (Ntg) 0.4 mg Q5M X 3 DOSES PRN SL Prn Chest Pain 12/26/17 15:59 01/19/18 15:58 Ondansetron HCl (Zofran) 4 mg Q6H PRN IVP Nausea & Vomiting 12/26/17 16:00 01/19/18 15:59 01/04/18 12:11 Polyethylene Glycol (Miralax) 17 gm BEDTIME ORAL 12/26/17 21:00 01/22/18 20:59 01/06/18 20:38 Promethazine HCl/ Codeine (Phenergan with Codeine) 5 ml Q6H PRN ORAL cough 12/26/17 16:01 01/23/18 16:00 Risperidone (RisperDAL) 1 mg BID ORAL 12/26/17 18:00 01/20/18 13:14 01/08/18 08:54 Sennosides (Senokot) 1 tab DAILY ORAL 12/27/17 09:00 01/22/18 14:59 01/08/18 08:54 Vitamin A/Vitamin D (A & D Oint) 1 applic EVERY 12 HOURS TOPIC 12/26/17 21:00 01/20/18 22:59 01/08/18 09:00 Leni Watts MD Jan 08, 2018 14:43
[2018-01-08] MEDS ORDERED: ALPRAZolam 0.25mg tab ORAL PRN (14:45)
[2018-01-08] MEDS: Ipratropium 0.02% Inh Soln 2.5ml UD HHN SCH (20:03)
[2018-01-08] MEDS: Miralax 17gm pkt ORAL SCH (20:19)
--- NOTE | 2018-01-08 23:44 | General Progress Note ---
Assessment/Plan Problem List: (1) Hyperkalemia ICD Codes: E87.5 - Hyperkalemia SNOMED: 30021815 (2) Acidosis ICD Codes: E87.2 - Acidosis SNOMED: 41057213 (3) CO2 retention ICD Codes: E87.2 - Acidosis SNOMED: 70450410 (4) Respiratory distress ICD Codes: R06.03 - Acute respiratory distress SNOMED: 325598706 (5) COPD (chronic obstructive pulmonary disease) ICD Codes: J44.9 - Chronic obstructive pulmonary disease, unspecified SNOMED: 27917358 (6) Hepatitis C ICD Codes: B19.20 - Unspecified viral hepatitis C without hepatic coma SNOMED: 97521053 (7) Acute and chronic respiratory failure ICD Codes: J96.20 - Acute and chronic respiratory failure, unspecified whether with hypoxia or hypercapnia SNOMED: 80798172 (8) Diabetes mellitus out of control ICD Codes: E11.65 - Type 2 diabetes mellitus with hyperglycemia SNOMED: 20085337, 241476350 (9) Tachycardia ICD Codes: R00.0 - Tachycardia, unspecified SNOMED: 8610710 (10) Hypertension ICD Codes: I10 - Essential (primary) hypertension SNOMED: 72628758 Assessment/Plan encephalopathy psychosis due to [facility] [place] Risperdal Ativan Subjective Date patient seen: Jan 08, 2018 Neurologic/Psychiatric: Reports: anxiety, depressed, emotional problems Allergies: Coded Allergies: Shrimp (Unverified Allergy, Unknown, 12/04/17) Subjective the pt is calm no psychotic sxs. no agitation. the pt has impairment of memory. Objective Last 24 Hour Vital Signs Date Time Temp Pulse Resp B/P (MAP) Pulse Ox O2 Delivery O2 Flow Rate FiO2 01/08/18 20:19 Room Air 01/08/18 20:05 100 Nasal Cannula 2.0 28 01/08/18 20:05 Nasal Cannula 2.0 28 01/08/18 20:04 118 18 100 Nasal Cannula 2.0 28 01/08/18 19:56 97.2 117 18 121/65 98 97.2 01/08/18 16:00 97.2 72 19 119/73 100 97.2 01/08/18 12:00 98.8 118 22 118/64 99 98.8 01/08/18 08:54 104 115/65 4/24/18 08:00 97.7 104 20 115/65 95 97.7 01/08/18 04:38 Room Air 01/08/18 04:00 97.8 102 16 118/69 99 97.8 01/08/18 01:11 Room Air 01/08/18 00:00 97.7 111 16 115/67 97 97.7 Intake and Output 01/07/18 01/08/18 19:00 07:00 Intake Total 600 ml Balance 600 ml Intake Oral 600 ml # Voids 3 2 # Bowel Movements 2 Laboratory Tests 01/08/18 04:45: White Blood Count 7.6, Red Blood Count 4.22, Hemoglobin 11.3L, Hematocrit 36.1L , Mean Corpuscular Volume 86, Mean Corpuscular Hemoglobin 26.7L, Mean Corpuscular Hemoglobin Concent 31.2L, Red Cell Distribution Width 14.7, Platelet Count 95L, Mean Platelet Volume 7.6, Neutrophils (%) (Auto) , Lymphocytes (%) (Auto) , Monocytes (%) (Auto) , Eosinophils (%) (Auto) , Basophils (%) (Auto) , Erythrocyte Sedimentation Rate 11, Sodium Level 144, Potassium Level 4.7, Chloride Level 105, Carbon Dioxide Level 37H, Anion Gap 2L , Blood Urea Nitrogen 34H, Creatinine 1.0, Estimat Glomerular Filtration Rate > 60, Glucose Level 168H, Calcium Level 9.5, Phosphorus Level 3.2, Magnesium Level 1.8, Total Bilirubin 0.5, Aspartate Amino Transf (AST/SGOT) 16, Alanine Aminotransferase (ALT/SGPT) 39, Alkaline Phosphatase 44L, Total Protein 6.4, Albumin 3.0L, Globulin 3.4, Albumin/Globulin Ratio 0.9L Height (Feet): 5 Height (Inches): 4.00 Weight (Pounds): 148 Grisel Jay M.D. Jan 08, 2018 23:44
--- NOTE | 2018-01-09 00:03 | General Progress Note ---
Assessment/Plan Assessment/Plan #. Thrombocytopenia, secondary to hepatitis C --> Hep A and C antibody test (+) --> Improving. Transfuse if platelets <20k #. Leukopenia, likely secondary to hepatitis C, currently improved. --> No leukocytosis is noted. The patient has been afebrile. --> Resolved at this time. #. Anemia due to underlying chronic disease. --> Continue to closely monitor. --> Blood transfusion not required unless symptomatic or hgb <7 --> Reviewed anemia workup. Iron 110, TIBC 230, Ferritin 90, B12 821, Folate 6.6 , TSH 1.4 --> Hemoglobin stable, blood transfusion not needed at this time #. Acute on hypoxic respiratory failure, status post tracheostomy, improved. #. Hepatitis C. Management as an outpatient. --> Appreciate Infectious Disease service evaluation. #. Hypertension. Systolic blood pressure goal less than 140. --> Improved. #. COPD. #. Encephalopathy. DC Planning. Subjective Date patient seen: Jan 08, 2018 Constitutional: Denies: no symptoms, chills, diaphoresis, fever, malaise, weakness, other HEENT: Denies: no symptoms, eye pain, blurred vision, tearing, double vision, ear pain, ear discharge, nose pain, nose congestion, throat pain, throat swelling, mouth pain, mouth swelling, other Cardiovascular: Denies: no symptoms, chest pain, edema, irregular heart rate, lightheadedness, palpitations, syncope, other Respiratory: Denies: no symptoms, cough, orthopnea, shortness of breath, SOB with excertion, SOB at rest, sputum, stridor, wheezing, other Gastrointestinal/Abdominal: Denies: no symptoms, abdomen distended, abdominal pain, black stools, tarry stools, blood in stool, constipated, diarrhea, difficulty swallowing, nausea, poor appetite, poor fluid intake, rectal bleeding , vomiting, other Genitourinary: Denies: no symptoms, burning, discharge, frequency, flank pain, hematuria, incontinence, pain, urgency, other Neurologic/Psychiatric: Denies: no symptoms, anxiety, depressed, emotional problems, headache, numbness, paresthesia, pre-existing deficit, seizure, tingling, tremors, weakness, other Hematologic/Lymphatic: Reports: anemia Allergies: Coded Allergies: Shrimp (Unverified Allergy, Unknown, 12/04/17) Subjective Some tachycardia. Confused. No acute events. Objective Last 24 Hour Vital Signs Date Time Temp Pulse Resp B/P (MAP) Pulse Ox O2 Delivery O2 Flow Rate FiO2 01/08/18 23:53 97.9 97 18 115/59 98 97.9 01/08/18 20:19 Room Air 01/08/18 20:05 100 Nasal Cannula 2.0 28 01/08/18 20:05 Nasal Cannula 2.0 28 01/08/18 20:04 118 18 100 Nasal Cannula 2.0 28 01/08/18 19:56 97.2 117 18 121/65 98 97.2 01/08/18 16:00 97.2 72 19 119/73 100 97.2 01/08/18 12:00 98.8 118 22 118/64 99 98.8 01/08/18 08:54 104 115/65 01/08/18 08:00 97.7 104 20 115/65 95 97.7 01/08/18 04:38 Room Air 01/08/18 04:00 97.8 102 16 118/69 99 97.8 01/08/18 01:11 Room Air Intake and Output 01/08/18 01/09/18 19:00 07:00 Intake Total 360 ml Balance 360 ml Intake Oral 360 ml # Voids 3 Laboratory Tests 01/08/18 04:45: White Blood Count 7.6, Red Blood Count 4.22, Hemoglobin 11.3L, Hematocrit 36.1L , Mean Corpuscular Volume 86, Mean Corpuscular Hemoglobin 26.7L, Mean Corpuscular Hemoglobin Concent 31.2L, Red Cell Distribution Width 14.7, Platelet Count 95L, Mean Platelet Volume 7.6, Neutrophils (%) (Auto) , Lymphocytes (%) (Auto) , Monocytes (%) (Auto) , Eosinophils (%) (Auto) , Basophils (%) (Auto) , Erythrocyte Sedimentation Rate 11, Sodium Level 144, Potassium Level 4.7, Chloride Level 105, Carbon Dioxide Level 37H, Anion Gap 2L , Blood Urea Nitrogen 34H, Creatinine 1.0, Estimat Glomerular Filtration Rate > 60, Glucose Level 168H, Calcium Level 9.5, Phosphorus Level 3.2, Magnesium Level 1.8, Total Bilirubin 0.5, Aspartate Amino Transf (AST/SGOT) 16, Alanine Aminotransferase (ALT/SGPT) 39, Alkaline Phosphatase 44L, Total Protein 6.4, Albumin 3.0L, Globulin 3.4, Albumin/Globulin Ratio 0.9L Height (Feet): 5 Height (Inches): 4.00 Weight (Pounds): 148 General Appearance: no apparent distress, confused Cardiovascular: normal rate, regular rhythm Respiratory/Chest: decreased breath sounds Abdomen: non tender, soft PEPITO PRADO Jan 09, 2018 00:03
[2018-01-09 04:00] VITALS: BP 104/63
--- NOTE | 2018-01-09 06:48 | General Progress Note ---
Assessment/Plan Problem List: (1) Diabetes mellitus out of control ICD Codes: E11.65 - Type 2 diabetes mellitus with hyperglycemia SNOMED: 46671061, 762102409 (2) COPD (chronic obstructive pulmonary disease) ICD Codes: J44.9 - Chronic obstructive pulmonary disease, unspecified SNOMED: 40086472 (3) Acute and chronic respiratory failure ICD Codes: J96.20 - Acute and chronic respiratory failure, unspecified whether with hypoxia or hypercapnia SNOMED: 15172016 Assessment/Plan reduce Levemir to 10 units bid reduce Novolog to 10 units ac tid continue NISS Subjective Allergies: Coded Allergies: Shrimp (Unverified Allergy, Unknown, 12/04/17) Subjective events noted glucose values improved no longer on IVSM daily Objective Last 24 Hour Vital Signs Date Time Temp Pulse Resp B/P (MAP) Pulse Ox O2 Delivery O2 Flow Rate FiO2 01/09/18 04:00 97.9 88 18 104/63 100 97.9 01/08/18 23:53 97.9 97 18 115/59 98 97.9 01/08/18 20:19 Room Air 01/08/18 20:05 100 Nasal Cannula 2.0 28 01/08/18 20:05 Nasal Cannula 2.0 28 01/08/18 20:04 118 18 100 Nasal Cannula 2.0 28 01/08/18 19:56 97.2 117 18 121/65 98 97.2 01/08/18 16:00 97.2 72 19 119/73 100 97.2 01/08/18 12:00 98.8 118 22 118/64 99 98.8 01/08/18 08:54 104 115/65 01/08/18 08:00 97.7 104 20 115/65 95 97.7 Intake and Output 01/08/18 01/09/18 19:00 07:00 Intake Total 360 ml 360 ml Balance 360 ml 360 ml Intake Oral 360 ml 360 ml # Voids 3 3 Height (Feet): 5 Height (Inches): 4.00 Weight (Pounds): 145 General Appearance: no apparent distress EENT: pale conjunctivae Neck: normal alignment Cardiovascular: normal rate Respiratory/Chest: decreased breath sounds Abdomen: normal bowel sounds Edema: 1+ Arm (L), 1+ Arm (R), 1+ Leg (L), 1+ Leg (R), 1+ Pedal (L), 1+ Pedal ( R), 1+ Generalized Objective Current Medications Medications (Trade) Dose Ordered Sig/Hansel Route PRN Reason Start Time Stop Time Status Last Admin Dose Admin Acetaminophen (Tylenol) 650 mg Q4H PRN ORAL T>100.5 12/30/17 07:31 01/19/18 15:30 01/02/18 08:12 Alprazolam (Xanax) 0.25 mg Q6H PRN ORAL For Anxiety 01/08/18 14:45 01/15/18 14:44 Amlodipine Besylate (Norvasc) 5 mg DAILY ORAL 12/27/17 09:00 01/20/18 08:59 01/08/18 08:54 Clonidine HCl (Catapres Tab) 0.1 mg Q4H PRN ORAL sbp more than 160mmHg 12/26/17 15:31 01/23/18 15:30 Dextrose (Dextrose 50%) 25 ml STAT PRN IV Blood Sugar btwn 60-69 mg/dL 12/26/17 15:33 01/25/18 15:32 01/04/18 16:45 Dextrose (Dextrose 50%) 50 ml STAT PRN IV BS less than 60mg/dl 12/26/17 15:34 01/25/18 15:33 Docusate Sodium (Colace) 100 mg THREE TIMES A DAY ORAL 12/26/17 18:00 01/22/18 09:59 01/08/18 17:26 Heparin Sodium (Porcine) (Heparin 5000 units/ml) 5,000 units EVERY 12 HOURS SUBQ 12/26/17 21:00 01/20/18 08:59 01/07/18 08:58 Insulin Aspart (NovoLOG) BEFORE MEALS AND HS SUBQ 12/26/17 16:30 01/22/18 20:59 01/08/18 21:30 Insulin Aspart (NovoLOG) 12 units NOVOTIAC SUBQ 01/01/18 11:50 01/23/18 11:49 01/08/18 17:28 Insulin Detemir (Levemir) 12 units EVERY 12 HOURS SUBQ 01/06/18 21:00 01/23/18 20:59 01/08/18 21:28 Ipratropium [place] (Atrovent) 500 mcg TIDRT HHN 01/08/18 19:00 01/13/18 18:59 01/08/18 20:03 Mineral Oil (Fleet's Mineral Oil Enema) 133 ml EVERY OTHER DAY RECTAL 12/27/17 09:00 01/22/18 09:59 01/06/18 08:48 Nitroglycerin (Ntg) 0.4 mg Q5M X 3 DOSES PRN SL Prn Chest Pain 12/26/17 15:59 01/19/18 15:58 Ondansetron HCl (Zofran) 4 mg Q6H PRN IVP Nausea & Vomiting 12/26/17 16:00 01/19/18 15:59 01/04/18 12:11 Polyethylene Glycol (Miralax) 17 gm BEDTIME ORAL 12/26/17 21:00 01/22/18 20:59 01/06/18 20:38 Promethazine HCl/ Codeine (Phenergan with Codeine) 5 ml Q6H PRN ORAL cough 12/26/17 16:01 01/23/18 16:00 Risperidone (RisperDAL) 1 mg BID ORAL 12/26/17 18:00 01/20/18 13:14 01/08/18 17:26 Sennosides (Senokot) 1 tab DAILY ORAL 12/27/17 09:00 01/22/18 14:59 01/08/18 08:54 Vitamin A/Vitamin D (A & D Oint) 1 applic EVERY 12 HOURS TOPIC 12/26/17 21:00 01/20/18 22:59 01/08/18 21:27 Item Value Date Time Bedside Blood Glucose 112 mg/dl 01/09/18 0630 Bedside Blood Glucose 134 mg/dl H 01/08/18 2130 Bedside Blood Glucose 286 mg/dl H 01/08/18 1728 Bedside Blood Glucose 265 mg/dl H 01/08/18 1129 Bedside Blood Glucose 191 mg/dl H 01/08/18 0856 Current Medications Medications (Trade) Dose Ordered Sig/Hansel Route PRN Reason Start Time Stop Time Status Last Admin Dose Admin Acetaminophen (Tylenol) 650 mg Q4H PRN ORAL T>100.5 12/30/17 07:31 01/19/18 15:30 01/02/18 08:12 Amlodipine Besylate (Norvasc) 5 mg DAILY ORAL 4/12/18 09:00 01/20/18 08:59 01/05/18 08:56 Chlorhexidine Gluconate (Jazzmine-Hex 2%) 1 applic DAILY@2000 TOPIC 12/26/17 20:00 01/20/18 19:59 01/04/18 20:50 Clonidine HCl (Catapres Tab) 0.1 mg Q4H PRN ORAL sbp more than 160mmHg 12/26/17 15:31 01/23/18 15:30 Dextrose (Dextrose 50%) 25 ml STAT PRN IV Blood Sugar btwn 60-69 mg/dL 12/26/17 15:33 01/25/18 15:32 01/04/18 16:45 Dextrose (Dextrose 50%) 50 ml STAT PRN IV BS less than 60mg/dl 12/26/17 15:34 01/25/18 15:33 Docusate Sodium (Colace) 100 mg THREE TIMES A DAY ORAL 12/26/17 18:00 01/22/18 09:59 01/06/18 08:49 Heparin Sodium (Porcine) (Heparin 5000 units/ml) 5,000 units EVERY 12 HOURS SUBQ 12/26/17 21:00 01/20/18 08:59 01/05/18 20:42 Insulin Aspart (NovoLOG) BEFORE MEALS AND HS SUBQ 12/26/17 16:30 01/22/18 20:59 01/05/18 20:46 Insulin Aspart (NovoLOG) 12 units NOVOTIAC SUBQ 01/01/18 11:50 01/23/18 11:49 01/05/18 17:22 Insulin Detemir (Levemir) 15 units EVERY 12 HOURS SUBQ 12/26/17 21:00 01/23/18 20:59 01/06/18 08:50 Methylprednisolone Sodium Succinate (Solu-MEDROL) 60 mg DAILY IV 12/27/17 09:00 01/20/18 00:00 01/06/18 08:49 Mineral Oil (Fleet's Mineral Oil Enema) 133 ml EVERY OTHER DAY RECTAL 12/27/17 09:00 01/22/18 09:59 01/06/18 08:48 Nitroglycerin (Ntg) 0.4 mg Q5M X 3 DOSES PRN SL Prn Chest Pain 12/26/17 15:59 01/19/18 15:58 Ondansetron HCl (Zofran) 4 mg Q6H PRN IVP Nausea & Vomiting 12/26/17 16:00 01/19/18 15:59 01/04/18 12:11 Polyethylene Glycol (Miralax) 17 gm BEDTIME ORAL 12/26/17 21:00 01/22/18 20:59 01/05/18 20:40 Promethazine HCl/ Codeine (Phenergan with Codeine) 5 ml Q6H PRN ORAL cough 12/26/17 16:01 01/23/18 16:00 Risperidone (RisperDAL) 1 mg BID ORAL 12/26/17 18:00 01/20/18 13:14 01/06/18 08:49 Sennosides (Senokot) 1 tab DAILY ORAL 12/27/17 09:00 01/22/18 14:59 01/05/18 08:56 Vitamin A/Vitamin D (A & D Oint) 1 applic EVERY 12 HOURS TOPIC 12/26/17 21:00 01/20/18 22:59 01/06/18 08:55 Item Value Date Time Bedside Blood Glucose 89 mg/dl 01/06/18 0850 Bedside Blood Glucose 89 mg/dl 01/06/18 0630 Bedside Blood Glucose 175 mg/dl H 01/05/182045 FEMI MCKEON Jan 09, 2018 06:48
[2018-01-09] MEDS: NovoLOG Insulin Flexpen SUBQ SCH ×7 (06:57→21:00)
[2018-01-09 08:00] VITALS: BP 107/66
[2018-01-09] MEDS: Heparin 5000 units/ml inj SUBQ SCH ×2 (09:00→21:00)
[2018-01-09] MEDS: Vitamin A&D Oint 2oz Tube TOPIC SCH ×2 (09:00→21:37)
[2018-01-09] MEDS: Docusate 100mg cap ORAL SCH ×3 (09:29→17:16)
[2018-01-09] MEDS: Sennosides 8.6mg ORAL SCH (09:29)
[2018-01-09] MEDS: Levemir Flexpen SUBQ SCH ×2 (09:35→21:00)
[2018-01-09] MEDS: Ipratropium 0.02% Inh Soln 2.5ml UD HHN SCH ×3 (10:30→20:33)
--- NOTE | 2018-01-09 11:27 | Infectious Diseases Prog Note ---
Assessment/Plan Assessment/Plan Assessment: Acute hypoxic resp failure improved COPD exacerbation- -CXR: No acute disease Afebrile, no leukocytosis Recent acute hypoxic failure and PNA 11/2015 -sp cx 12/04: E.coli (davila S), P. mirabilis (davila S) Influenza sc : Neg transaminitis improving Hx of Hep C Hep panel : A Imm HIV Neg hx of trach s/p removal COPD Dm2 HTN NH resident Plan: - Monitor pt off of AB Rx -12/24 SP Levaquin # 5 /5 -12/10 SP Cefepime #7 -12/06 SP Vanco #3 -Monitor CBC/BMP, temperatures -aspiration precautions Hem fup, re TCP Hep C fup and probable need for Hep B Vax as out pt Subjective Allergies: Coded Allergies: Shrimp (Unverified Allergy, Unknown, 12/04/17) Subjective afebrile off abx no leukcoytosis Objective Vital Signs Last 24 Hour Vital Signs Date Time Temp Pulse Resp B/P (MAP) Pulse Ox O2 Delivery O2 Flow Rate FiO2 01/09/18 10:36 99 Nasal Cannula 2.0 28 01/09/18 10:36 Nasal Cannula 2.0 28 01/09/18 10:33 99 18 99 Nasal Cannula 2.0 28 01/09/18 10:22 99 20 98 Nasal Cannula 2.0 28 01/09/18 09:00 94 107/66 01/09/18 08:00 Room Air 01/09/18 08:00 97.7 94 17 107/66 96 97.7 01/09/18 04:00 97.9 88 18 104/63 100 97.9 01/08/18 23:53 97.9 97 18 115/59 98 97.9 01/08/18 20:19 Room Air 01/08/18 20:05 100 Nasal Cannula 2.0 28 01/08/18 20:05 Nasal Cannula 2.0 28 01/08/18 20:04 118 18 100 Nasal Cannula 2.0 28 01/08/18 19:56 97.2 117 18 121/65 98 97.2 01/08/18 16:00 Room Air 01/08/18 16:00 97.2 72 19 119/73 100 97.2 01/08/18 12:00 Room Air 01/08/18 12:00 98.8 118 22 118/64 99 98.8 Height (Feet): 5 Height (Inches): 4.00 Weight (Pounds): 145 Objective General Appearance: cachetic HEENT: normocephalic Respiratory/Chest: chest wall non-tender, lungs clear Breasts: no masses Cardiovascular: normal peripheral pulses, normal rate Abdomen: normal bowel sounds, soft, non tender Extremities: no cyanosis, no clubbing 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, no motor/sensory deficits Lymphatic: no neck adenopathy Laboratory Tests Test 01/09/18 09:00 Hepatitis A Antibody Total Pending Hepatitis B Surface Antibody Pending Hepatitis B Core Total Antibody Pending Hepatitis C Antibody Pending Hepatitis C RNA (PCR) IUs/ml Pending Hepatitis C RNA (PCR) log IUs/ml Pending Current Medications Medications (Trade) Dose Ordered Sig/Hansel Route PRN Reason Start Time Stop Time Status Last Admin Dose Admin Acetaminophen (Tylenol) 650 mg Q4H PRN ORAL T>100.5 12/30/17 07:31 01/19/18 15:30 01/02/18 08:12 Alprazolam (Xanax) 0.25 mg Q6H PRN ORAL For Anxiety 01/08/18 14:45 01/15/18 14:44 Amlodipine Besylate (Norvasc) 5 mg DAILY ORAL 12/27/17 09:00 01/20/18 08:59 01/08/18 08:54 Clonidine HCl (Catapres Tab) 0.1 mg Q4H PRN ORAL sbp more than 160mmHg 12/26/17 15:31 01/23/18 15:30 Dextrose (Dextrose 50%) 25 ml STAT PRN IV Blood Sugar btwn 60-69 mg/dL 12/26/17 15:33 01/25/18 15:32 01/04/18 16:45 Dextrose (Dextrose 50%) 50 ml STAT PRN IV BS less than 60mg/dl 12/26/17 15:34 01/25/18 15:33 Docusate Sodium (Colace) 100 mg THREE TIMES A DAY ORAL 12/26/17 18:00 01/22/18 09:59 01/09/18 09:29 Heparin Sodium (Porcine) (Heparin 5000 units/ml) 5,000 units EVERY 12 HOURS SUBQ 12/26/17 21:00 01/20/18 08:59 01/07/18 08:58 Insulin Aspart (NovoLOG) BEFORE MEALS AND HS SUBQ 12/26/17 16:30 01/22/18 20:59 01/09/18 11:18 Insulin Aspart (NovoLOG) 10 units NOVOTIAC SUBQ 01/09/18 07:30 01/23/18 07:29 01/09/18 11:19 Insulin Detemir (Levemir) 10 units EVERY 12 HOURS SUBQ 01/09/18 09:00 01/23/18 20:59 01/09/18 09:35 Ipratropium [place] (Atrovent) 500 mcg TIDRT HHN 01/08/18 19:00 01/13/18 18:59 01/09/18 10:30 Mineral Oil (Fleet's Mineral Oil Enema) 133 ml EVERY OTHER DAY RECTAL 12/27/17 09:00 01/22/18 09:59 01/06/18 08:48 Nitroglycerin (Ntg) 0.4 mg Q5M X 3 DOSES PRN SL Prn Chest Pain 12/26/17 15:59 01/19/18 15:58 Ondansetron HCl (Zofran) 4 mg Q6H PRN IVP Nausea & Vomiting 12/26/17 16:00 01/19/18 15:59 01/04/18 12:11 Polyethylene Glycol (Miralax) 17 gm BEDTIME ORAL 12/26/17 21:00 01/22/18 20:59 01/06/18 20:38 Promethazine HCl/ Codeine (Phenergan with Codeine) 5 ml Q6H PRN ORAL cough 12/26/17 16:01 01/23/18 16:00 Risperidone (RisperDAL) 1 mg BID ORAL 12/26/17 18:00 01/20/18 13:14 01/09/18 09:29 Sennosides (Senokot) 1 tab DAILY ORAL 12/27/17 09:00 01/22/18 14:59 01/09/18 09:29 Vitamin A/Vitamin D (A & D Oint) 1 applic EVERY 12 HOURS TOPIC 12/26/17 21:00 01/20/18 22:59 01/09/18 09:00 Caterina Elizondo M.D. Jan 09, 2018 11:27
[2018-01-09 12:00] VITALS: BP 101/66
--- NOTE | 2018-01-09 15:07 | Cardiology Report ---
APPROVED REPORT EKG Measurement Heart [id number] NE 124P87 [id number] Sinus tachycardia with occasional premature ventricular complexes Minimal voltage criteria for LVH, may be normal variant Increased R/S ratio in V1, consider early transition or posterior infarct Abnormal ECG
--- NOTE | 2018-01-09 15:29 | Pulmonology Progress Note ---
Assessment/Plan Problems: (1) Acute and chronic respiratory failure (2) COPD (chronic obstructive pulmonary disease) (3) Hepatitis C Assessment/Plan no new complains all reviewed no new events no new complains respiratory treatment dc steroids BP controlled tachycardia secondary to agitation. dc planning in progress Subjective ROS Limited/Unobtainable: No Constitutional: Reports: no symptoms HEENT: Repors: no symptoms Respiratory: Reports: no symptoms Allergies: Coded Allergies: Shrimp (Unverified Allergy, Unknown, 12/04/17) Objective Last 24 Hour Vital Signs Date Time Temp Pulse Resp B/P (MAP) Pulse Ox O2 Delivery O2 Flow Rate FiO2 01/09/18 14:14 99 18 100 Nasal Cannula 2.0 28 01/09/18 14:02 83 20 99 Nasal Cannula 2.0 28 01/09/18 12:00 98.1 110 24 101/66 99 98.1 01/09/18 10:36 99 Nasal Cannula 2.0 28 01/09/18 10:36 Nasal Cannula 2.0 28 01/09/18 10:33 99 18 99 Nasal Cannula 2.0 28 01/09/18 10:22 99 20 98 Nasal Cannula 2.0 28 01/09/18 09:00 94 107/66 01/09/18 08:00 Room Air 01/09/18 08:00 97.7 94 17 107/66 96 97.7 01/09/18 04:00 97.9 88 18 104/63 100 97.9 01/08/18 23:53 97.9 97 18 115/59 98 97.9 01/08/18 20:19 Room Air 01/08/18 20:05 100 Nasal Cannula 2.0 28 01/08/18 20:05 Nasal Cannula 2.0 28 01/08/18 20:04 118 18 100 Nasal Cannula 2.0 28 01/08/18 19:56 97.2 117 18 121/65 98 97.2 01/08/18 16:00 Room Air 01/08/18 16:00 97.2 72 19 119/73 100 97.2 Intake and Output 01/08/18 01/09/18 19:00 07:00 Intake Total 360 ml 360 ml Balance 360 ml 360 ml Intake Oral 360 ml 360 ml # Voids 3 3 Objective General Appearance: cachetic HEENT: normocephalic Respiratory/Chest: chest wall non-tender, lungs clear Breasts: no masses Cardiovascular: normal peripheral pulses, normal rate Abdomen: normal bowel sounds, soft, non tender Extremities: no cyanosis, no clubbing 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, no motor/sensory deficits Lymphatic: no neck adenopathy Laboratory Tests 01/09/18 09:00: Hepatitis A Antibody Total [Pending], Hepatitis B Surface Antibody [Pending], Hepatitis B Core Total Antibody [Pending], Hepatitis C Antibody [Pending], Hepatitis C RNA (PCR) IUs/ml [Pending], Hepatitis C RNA (PCR) log IUs/ml [ Pending] Current Medications Medications (Trade) Dose Ordered Sig/Hansel Route PRN Reason Start Time Stop Time Status Last Admin Dose Admin Acetaminophen (Tylenol) 650 mg Q4H PRN ORAL T>100.5 12/30/17 07:31 01/19/18 15:30 01/02/18 08:12 Alprazolam (Xanax) 0.25 mg Q6H PRN ORAL For Anxiety 01/08/18 14:45 01/15/18 14:44 Amlodipine Besylate (Norvasc) 5 mg DAILY ORAL 12/27/17 09:00 01/20/18 08:59 01/08/18 08:54 Clonidine HCl (Catapres Tab) 0.1 mg Q4H PRN ORAL sbp more than 160mmHg 12/26/17 15:31 01/23/18 15:30 Dextrose (Dextrose 50%) 25 ml STAT PRN IV Blood Sugar btwn 60-69 mg/dL 12/26/17 15:33 01/25/18 15:32 01/04/18 16:45 Dextrose (Dextrose 50%) 50 ml STAT PRN IV BS less than 60mg/dl 12/26/17 15:34 01/25/18 15:33 Docusate Sodium (Colace) 100 mg THREE TIMES A DAY ORAL 12/26/17 18:00 01/22/18 09:59 01/09/18 09:29 Heparin Sodium (Porcine) (Heparin 5000 units/ml) 5,000 units EVERY 12 HOURS SUBQ 12/26/17 21:00 01/20/18 08:59 01/07/18 08:58 Insulin Aspart (NovoLOG) BEFORE MEALS AND HS SUBQ 12/26/17 16:30 01/22/18 20:59 01/09/18 11:18 Insulin Aspart (NovoLOG) 10 units NOVOTIAC SUBQ 01/09/18 07:30 01/23/18 07:29 01/09/18 11:19 Insulin Detemir (Levemir) 10 units EVERY 12 HOURS SUBQ 01/09/18 09:00 01/23/18 20:59 01/09/18 09:35 Ipratropium [place] (Atrovent) 500 mcg TIDRT HHN 01/08/18 19:00 01/13/18 18:59 01/09/18 13:00 Mineral Oil (Fleet's Mineral Oil Enema) 133 ml EVERY OTHER DAY RECTAL 12/27/17 09:00 01/22/18 09:59 01/06/18 08:48 Nitroglycerin (Ntg) 0.4 mg Q5M X 3 DOSES PRN SL Prn Chest Pain 12/26/17 15:59 01/19/18 15:58 Ondansetron HCl (Zofran) 4 mg Q6H PRN IVP Nausea & Vomiting 12/26/17 16:00 01/19/18 15:59 01/04/18 12:11 Polyethylene Glycol (Miralax) 17 gm BEDTIME ORAL 12/26/17 21:00 01/22/18 20:59 01/06/18 20:38 Promethazine HCl/ Codeine (Phenergan with Codeine) 5 ml Q6H PRN ORAL cough 12/26/17 16:01 01/23/18 16:00 Risperidone (RisperDAL) 1 mg BID ORAL 12/26/17 18:00 01/20/18 13:14 01/09/18 09:29 Sennosides (Senokot) 1 tab DAILY ORAL 12/27/17 09:00 01/22/18 14:59 01/09/18 09:29 Vitamin A/Vitamin D (A & D Oint) 1 applic EVERY 12 HOURS TOPIC 12/26/17 21:00 01/20/18 22:59 01/09/18 09:00 Leni Watts MD Jan 09, 2018 15:29
[2018-01-09 16:00] VITALS: BP 112/56
[2018-01-09 20:00] VITALS: BP 110/69
[2018-01-09] MEDS: Miralax 17gm pkt ORAL SCH (21:36)
--- NOTE | 2018-01-09 23:53 | General Progress Note ---
Assessment/Plan Assessment/Plan #. Anemia due to underlying chronic disease. --> Continue to closely monitor. --> Blood transfusion not required unless symptomatic or hgb <7 --> Reviewed anemia workup. Iron 110, TIBC 230, Ferritin 90, B12 821, Folate 6.6 , TSH 1.4 --> Hemoglobin stable, blood transfusion not needed at this time #. Thrombocytopenia, secondary to hepatitis C --> Hep A and C antibody test (+) --> Improving. Transfuse if platelets <20k #. Leukopenia, likely secondary to hepatitis C, currently improved. --> No leukocytosis is noted. The patient has been afebrile. --> Resolved at this time. #. Acute on hypoxic respiratory failure, status post tracheostomy, improved. #. Hepatitis C. Management as an outpatient. --> Appreciate Infectious Disease service evaluation. #. Hypertension. Systolic blood pressure goal less than 140. --> Improved. #. COPD. #. Encephalopathy. DC Planning. Subjective Date patient seen: Jan 09, 2018 Constitutional: Denies: no symptoms, chills, diaphoresis, fever, malaise, weakness, other HEENT: Denies: no symptoms, eye pain, blurred vision, tearing, double vision, ear pain, ear discharge, nose pain, nose congestion, throat pain, throat swelling, mouth pain, mouth swelling, other Cardiovascular: Denies: no symptoms, chest pain, edema, irregular heart rate, lightheadedness, palpitations, syncope, other Respiratory: Denies: no symptoms, cough, orthopnea, shortness of breath, SOB with excertion, SOB at rest, sputum, stridor, wheezing, other Gastrointestinal/Abdominal: Denies: no symptoms, abdomen distended, abdominal pain, black stools, tarry stools, blood in stool, constipated, diarrhea, difficulty swallowing, nausea, poor appetite, poor fluid intake, rectal bleeding , vomiting, other Genitourinary: Denies: no symptoms, burning, discharge, frequency, flank pain, hematuria, incontinence, pain, urgency, other Neurologic/Psychiatric: Denies: no symptoms, anxiety, depressed, emotional problems, headache, numbness, paresthesia, pre-existing deficit, seizure, tingling, tremors, weakness, other Hematologic/Lymphatic: Reports: anemia Allergies: Coded Allergies: Shrimp (Unverified Allergy, Unknown, 12/04/17) Subjective Confused. No fever. H/H stable. Objective Last 24 Hour Vital Signs Date Time Temp Pulse Resp B/P (MAP) Pulse Ox O2 Delivery O2 Flow Rate FiO2 01/09/18 20:42 112 20 99 Nasal Cannula 2.0 28 01/09/18 20:31 98 Nasal Cannula 2.0 28 01/09/18 20:31 Nasal Cannula 2.0 28 01/09/18 20:31 110 20 98 Nasal Cannula 2.0 28 01/09/18 20:00 98.6 108 18 110/69 97 98.6 01/09/18 16:00 98.0 91 19 112/56 98 98.0 01/09/18 16:00 Nasal Cannula 2.0 01/09/18 14:14 99 18 100 Nasal Cannula 2.0 28 01/09/18 14:02 83 20 99 Nasal Cannula 2.0 28 01/09/18 12:00 98.1 110 24 101/66 99 98.1 01/09/18 12:00 Nasal Cannula 2.0 01/09/18 10:36 99 Nasal Cannula 2.0 28 01/09/18 10:36 Nasal Cannula 2.0 28 01/09/18 10:33 99 18 99 Nasal Cannula 2.0 28 01/09/18 10:22 99 20 98 Nasal Cannula 2.0 28 01/09/18 09:00 94 107/66 01/09/18 08:00 Nasal Cannula 2.0 01/09/18 08:00 97.7 94 17 107/66 96 97.7 01/09/18 04:00 97.9 88 18 104/63 100 97.9 01/08/18 23:53 97.9 97 18 115/59 98 97.9 Intake and Output 01/08/18 01/09/18 19:00 07:00 Intake Total 360 ml 360 ml Balance 360 ml 360 ml Intake Oral 360 ml 360 ml # Voids 3 3 Laboratory Tests 01/09/18 09:00: Hepatitis A Antibody Total [Pending], Hepatitis B Surface Antibody [Pending], Hepatitis B Core Total Antibody [Pending], Hepatitis C Antibody [Pending], Hepatitis C RNA (PCR) IUs/ml [Pending], Hepatitis C RNA (PCR) log IUs/ml [ Pending] Height (Feet): 5 Height (Inches): 4.00 Weight (Pounds): 145 General Appearance: confused Respiratory/Chest: decreased breath sounds PEPITO PRADO Jan 09, 2018 23:53
[2018-01-10] VITALS (7 sets, daily range): BP systolic 93–116; BP diastolic 55–73
--- NOTE | 2018-01-10 06:34 | General Progress Note ---
Assessment/Plan Problem List: (1) Diabetes mellitus out of control ICD Codes: E11.65 - Type 2 diabetes mellitus with hyperglycemia SNOMED: 14038853, 293501445 (2) COPD (chronic obstructive pulmonary disease) ICD Codes: J44.9 - Chronic obstructive pulmonary disease, unspecified SNOMED: 81847055 (3) Acute and chronic respiratory failure ICD Codes: J96.20 - Acute and chronic respiratory failure, unspecified whether with hypoxia or hypercapnia SNOMED: 04785678 Assessment/Plan reduce Levemir to 8 units bid reduce Novolog to 8 units ac tid continue NISS Subjective Allergies: Coded Allergies: Shrimp (Unverified Allergy, Unknown, 12/04/17) All Systems: reviewed and negative except above Subjective events noted glucose values stable she refused Levemir last night Objective Last 24 Hour Vital Signs Date Time Temp Pulse Resp B/P (MAP) Pulse Ox O2 Delivery O2 Flow Rate FiO2 01/10/18 04:00 98.3 104 18 101/71 99 98.3 01/10/18 00:00 98.4 111 18 102/62 100 98.4 01/09/18 20:42 112 20 99 Nasal Cannula 2.0 28 01/09/18 20:31 98 Nasal Cannula 2.0 28 01/09/18 20:31 Nasal Cannula 2.0 28 01/09/18 20:31 110 20 98 Nasal Cannula 2.0 28 01/09/18 20:00 98.6 108 18 110/69 97 98.6 01/09/18 16:00 98.0 91 19 112/56 98 98.0 01/09/18 16:00 Nasal Cannula 2.0 01/09/18 14:14 99 18 100 Nasal Cannula 2.0 28 01/09/18 14:02 83 20 99 Nasal Cannula 2.0 28 01/09/18 12:00 98.1 110 24 101/66 99 98.1 01/09/18 12:00 Nasal Cannula 2.0 01/09/18 10:36 99 Nasal Cannula 2.0 28 01/09/18 10:36 Nasal Cannula 2.0 28 01/09/18 10:33 99 18 99 Nasal Cannula 2.0 28 01/09/18 10:22 99 20 98 Nasal Cannula 2.0 28 01/09/18 09:00 94 107/66 01/09/18 08:00 Nasal Cannula 2.0 01/09/18 08:00 97.7 94 17 107/66 96 97.7 Intake and Output 01/09/18 01/10/18 19:00 07:00 Intake Total 480 ml Balance 480 ml Intake Oral 480 ml # Voids 4 Laboratory Tests 01/09/18 09:00: Hepatitis A Antibody Total [Pending], Hepatitis B Surface Antibody [Pending], Hepatitis B Core Total Antibody [Pending], Hepatitis C Antibody [Pending], Hepatitis C RNA (PCR) IUs/ml [Pending], Hepatitis C RNA (PCR) log IUs/ml [ Pending] Height (Feet): 5 Height (Inches): 4.00 Weight (Pounds): 145 General Appearance: no apparent distress Neck: normal alignment Cardiovascular: normal rate Respiratory/Chest: decreased breath sounds Abdomen: normal bowel sounds Objective Current Medications Medications (Trade) Dose Ordered Sig/Hansel Route PRN Reason Start Time Stop Time Status Last Admin Dose Admin Acetaminophen (Tylenol) 650 mg Q4H PRN ORAL T>100.5 12/30/17 07:31 01/19/18 15:30 01/02/18 08:12 Alprazolam (Xanax) 0.25 mg Q6H PRN ORAL For Anxiety 01/08/18 14:45 01/15/18 14:44 Amlodipine Besylate (Norvasc) 5 mg DAILY ORAL 12/27/17 09:00 01/20/18 08:59 01/08/18 08:54 Clonidine HCl (Catapres Tab) 0.1 mg Q4H PRN ORAL sbp more than 160mmHg 12/26/17 15:31 01/23/18 15:30 Dextrose (Dextrose 50%) 25 ml STAT PRN IV Blood Sugar btwn 60-69 mg/dL 12/26/17 15:33 01/25/18 15:32 01/04/18 16:45 Dextrose (Dextrose 50%) 50 ml STAT PRN IV BS less than 60mg/dl 12/26/17 15:34 01/25/18 15:33 Docusate Sodium (Colace) 100 mg THREE TIMES A DAY ORAL 12/26/17 18:00 01/22/18 09:59 01/09/18 17:16 Heparin Sodium (Porcine) (Heparin 5000 units/ml) 5,000 units EVERY 12 HOURS SUBQ 12/26/17 21:00 01/20/18 08:59 01/07/18 08:58 Insulin Aspart (NovoLOG) BEFORE MEALS AND HS SUBQ 12/26/17 16:30 01/22/18 20:59 01/09/18 17:17 Insulin Aspart (NovoLOG) 10 units NOVOTIAC SUBQ 01/09/18 07:30 01/23/18 07:29 01/09/18 17:18 Insulin Detemir (Levemir) 10 units EVERY 12 HOURS SUBQ 01/09/18 09:00 01/23/18 20:59 01/09/18 09:35 Ipratropium [place] (Atrovent) 500 mcg TIDRT HHN 01/08/18 19:00 01/13/18 18:59 01/09/18 20:33 Mineral Oil (Fleet's Mineral Oil Enema) 133 ml EVERY OTHER DAY RECTAL 12/27/17 09:00 01/22/18 09:59 01/06/18 08:48 Nitroglycerin (Ntg) 0.4 mg Q5M X 3 DOSES PRN SL Prn Chest Pain 12/26/17 15:59 01/19/18 15:58 Ondansetron HCl (Zofran) 4 mg Q6H PRN IVP Nausea & Vomiting 12/26/17 16:00 01/19/18 15:59 01/04/18 12:11 Polyethylene Glycol (Miralax) 17 gm BEDTIME ORAL 12/26/17 21:00 01/22/18 20:59 01/09/18 21:36 Promethazine HCl/ Codeine (Phenergan with Codeine) 5 ml Q6H PRN ORAL cough 12/26/17 16:01 01/23/18 16:00 Risperidone (RisperDAL) 1 mg BID ORAL 12/26/17 18:00 01/20/18 13:14 01/09/18 17:16 Sennosides (Senokot) 1 tab DAILY ORAL 12/27/17 09:00 01/22/18 14:59 01/09/18 09:29 Vitamin A/Vitamin D (A & D Oint) 1 applic EVERY 12 HOURS TOPIC 12/26/17 21:00 01/20/18 22:59 01/09/18 21:37 Item Value Date Time Bedside Blood Glucose 188 mg/dl H 01/09/18 2100 Bedside Blood Glucose 146 mg/dl H 01/09/18 1718 Bedside Blood Glucose 303 mg/dl H 01/09/18 1130 Bedside Blood Glucose 112 mg/dl 01/09/18 0935 FEMI MCKEON Jan 10, 2018 06:34
[2018-01-10] MEDS: NovoLOG Insulin Flexpen SUBQ SCH ×6 (06:37→21:29)
[2018-01-10] MEDS: Ipratropium 0.02% Inh Soln 2.5ml UD HHN SCH ×3 (07:06→20:16)
[2018-01-10] MEDS: Levemir Flexpen SUBQ SCH ×2 (09:00→21:28)
[2018-01-10] MEDS: Docusate 100mg cap ORAL SCH ×3 (09:00→18:00)
[2018-01-10] MEDS: Sennosides 8.6mg ORAL SCH (09:00)
[2018-01-10] MEDS: Fleet's Mineral Oil Enema RECTAL SCH (09:00)
[2018-01-10] MEDS: Heparin 5000 units/ml inj SUBQ SCH ×2 (09:00→21:00)
[2018-01-10] MEDS: Vitamin A&D Oint 2oz Tube TOPIC SCH ×2 (10:48→21:31)
--- NOTE | 2018-01-10 11:50 | Infectious Diseases Prog Note ---
Assessment/Plan Assessment/Plan Assessment: Acute hypoxic resp failure improved COPD exacerbation- -CXR: No acute disease Afebrile, no leukocytosis Recent acute hypoxic failure and PNA 11/2015 -sp cx 12/04: E.coli (davila S), P. mirabilis (davila S) Influenza sc : Neg transaminitis improving Hx of Hep C Hep panel : A Imm HIV Neg hx of trach s/p removal COPD Dm2 HTN NH resident Plan: - Monitor pt off of AB Rx -12/24 SP Levaquin # 5 /5 -12/10 SP Cefepime #7 -12/06 SP Vanco #3 -Monitor CBC/BMP, temperatures -aspiration precautions Hem fup, re TCP Hep C fup and probable need for Hep B Vax as out pt Subjective Allergies: Coded Allergies: Shrimp (Unverified Allergy, Unknown, 12/04/17) Subjective afebrile off abx no leukcoytosis Objective Vital Signs Last 24 Hour Vital Signs Date Time Temp Pulse Resp B/P (MAP) Pulse Ox O2 Delivery O2 Flow Rate FiO2 01/10/18 11:42 98.2 97 20 107/60 95 98.2 01/10/18 10:42 103 114/61 01/10/18 08:15 97.6 107 20 116/73 100 97.6 01/10/18 07:17 86 20 99 Nasal Cannula 2.0 01/10/18 07:07 Nasal Cannula 2.0 28 01/10/18 07:07 97 Nasal Cannula 2.0 28 01/10/18 07:06 86 20 97 Nasal Cannula 2.0 28 01/10/18 04:00 98.3 104 18 101/71 99 98.3 01/10/18 00:00 98.4 111 18 102/62 100 98.4 01/09/18 20:42 112 20 99 Nasal Cannula 2.0 28 01/09/18 20:31 98 Nasal Cannula 2.0 28 01/09/18 20:31 Nasal Cannula 2.0 28 01/09/18 20:31 110 20 98 Nasal Cannula 2.0 28 01/09/18 20:00 98.6 108 18 110/69 97 98.6 01/09/18 16:00 98.0 91 19 112/56 98 98.0 01/09/18 16:00 Nasal Cannula 2.0 01/09/18 14:14 99 18 100 Nasal Cannula 2.0 28 01/09/18 14:02 83 20 99 Nasal Cannula 2.0 28 01/09/18 12:00 98.1 110 24 101/66 99 98.1 01/09/18 12:00 Nasal Cannula 2.0 Height (Feet): 5 Height (Inches): 4.00 Weight (Pounds): 146 Objective General Appearance: cachetic HEENT: normocephalic Respiratory/Chest: chest wall non-tender, lungs clear Breasts: no masses Cardiovascular: normal peripheral pulses, normal rate Abdomen: normal bowel sounds, soft, non tender Extremities: no cyanosis, no clubbing 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, no motor/sensory deficits Lymphatic: no neck adenopathy Current Medications Medications (Trade) Dose Ordered Sig/Hansel Route PRN Reason Start Time Stop Time Status Last Admin Dose Admin Acetaminophen (Tylenol) 650 mg Q4H PRN ORAL T>100.5 12/30/17 07:31 01/19/18 15:30 01/10/18 06:51 Alprazolam (Xanax) 0.25 mg Q6H PRN ORAL For Anxiety 01/08/18 14:45 01/15/18 14:44 Amlodipine Besylate (Norvasc) 5 mg DAILY ORAL 12/27/17 09:00 01/20/18 08:59 01/08/18 08:54 Clonidine HCl (Catapres Tab) 0.1 mg Q4H PRN ORAL sbp more than 160mmHg 12/26/17 15:31 01/23/18 15:30 Dextrose (Dextrose 50%) 25 ml STAT PRN IV Blood Sugar btwn 60-69 mg/dL 12/26/17 15:33 01/25/18 15:32 01/04/18 16:45 Dextrose (Dextrose 50%) 50 ml STAT PRN IV BS less than 60mg/dl 12/26/17 15:34 01/25/18 15:33 Docusate Sodium (Colace) 100 mg THREE TIMES A DAY ORAL 12/26/17 18:00 01/22/18 09:59 01/09/18 17:16 Heparin Sodium (Porcine) (Heparin 5000 units/ml) 5,000 units EVERY 12 HOURS SUBQ 12/26/17 21:00 01/20/18 08:59 01/07/18 08:58 Insulin Aspart (NovoLOG) BEFORE MEALS AND HS SUBQ 12/26/17 16:30 01/22/18 20:59 01/10/18 06:37 Insulin Aspart (NovoLOG) 8 units NOVOTIAC SUBQ 01/10/18 11:50 01/23/18 07:29 Insulin Detemir (Levemir) 8 units EVERY 12 HOURS SUBQ 01/10/18 09:00 01/23/18 20:59 Ipratropium [place] (Atrovent) 500 mcg TIDRT HHN 01/08/18 19:00 01/13/18 18:59 01/10/18 07:06 Mineral Oil (Fleet's Mineral Oil Enema) 133 ml EVERY OTHER DAY RECTAL 12/27/17 09:00 01/22/18 09:59 01/06/18 08:48 Nitroglycerin (Ntg) 0.4 mg Q5M X 3 DOSES PRN SL Prn Chest Pain 12/26/17 15:59 01/19/18 15:58 Ondansetron HCl (Zofran) 4 mg Q6H PRN IVP Nausea & Vomiting 12/26/17 16:00 01/19/18 15:59 01/04/18 12:11 Polyethylene Glycol (Miralax) 17 gm BEDTIME ORAL 12/26/17 21:00 01/22/18 20:59 01/09/18 21:36 Promethazine HCl/ Codeine (Phenergan with Codeine) 5 ml Q6H PRN ORAL cough 12/26/17 16:01 01/23/18 16:00 Risperidone (RisperDAL) 1 mg BID ORAL 12/26/17 18:00 01/20/18 13:14 01/09/18 17:16 Sennosides (Senokot) 1 tab DAILY ORAL 12/27/17 09:00 01/22/18 14:59 01/09/18 09:29 Vitamin A/Vitamin D (A & D Oint) 1 applic EVERY 12 HOURS TOPIC 12/26/17 21:00 01/20/18 22:59 01/10/18 10:48 Caterina Elizondo M.D. Jan 10, 2018 11:50
--- NOTE | 2018-01-10 14:23 | General Progress Note ---
Assessment/Plan Problem List: (1) Hyperkalemia ICD Codes: E87.5 - Hyperkalemia SNOMED: 32843998 (2) Acidosis ICD Codes: E87.2 - Acidosis SNOMED: 33385053 (3) CO2 retention ICD Codes: E87.2 - Acidosis SNOMED: 48179151 (4) Respiratory distress ICD Codes: R06.03 - Acute respiratory distress SNOMED: 629714350 (5) COPD (chronic obstructive pulmonary disease) ICD Codes: J44.9 - Chronic obstructive pulmonary disease, unspecified SNOMED: 63664257 (6) Hepatitis C ICD Codes: B19.20 - Unspecified viral hepatitis C without hepatic coma SNOMED: 65067106 (7) Acute and chronic respiratory failure ICD Codes: J96.20 - Acute and chronic respiratory failure, unspecified whether with hypoxia or hypercapnia SNOMED: 42828544 (8) Diabetes mellitus out of control ICD Codes: E11.65 - Type 2 diabetes mellitus with hyperglycemia SNOMED: 37235393, 988026262 (9) Tachycardia ICD Codes: R00.0 - Tachycardia, unspecified SNOMED: 6546484 (10) Hypertension ICD Codes: I10 - Essential (primary) hypertension SNOMED: 87779429 Assessment/Plan encephalopathy [place] [facility] [place] Subjective Date patient seen: Jan 10, 2018 Neurologic/Psychiatric: Reports: anxiety, depressed Allergies: Coded Allergies: Shrimp (Unverified Allergy, Unknown, 12/04/17) Subjective no agitation. the pt has is doing well Objective Last 24 Hour Vital Signs Date Time Temp Pulse Resp B/P (MAP) Pulse Ox O2 Delivery O2 Flow Rate FiO2 01/10/18 12:55 82 20 99 Nasal Cannula 2.0 01/10/18 12:46 80 20 98 Nasal Cannula 2.0 01/10/18 11:42 98.2 97 20 107/60 95 98.2 01/10/18 10:42 103 114/61 01/10/18 08:15 97.6 107 20 116/73 100 97.6 01/10/18 07:17 86 20 99 Nasal Cannula 2.0 01/10/18 07:07 Nasal Cannula 2.0 01/10/18 07:07 97 Nasal Cannula 2.0 01/10/18 07:06 86 20 97 Nasal Cannula 2.0 01/10/18 04:00 98.3 104 18 101/71 99 98.3 01/10/18 00:00 98.4 111 18 102/62 100 98.4 01/09/18 20:42 112 20 99 Nasal Cannula 2.0 28 01/09/18 20:31 98 Nasal Cannula 2.0 28 01/09/18 20:31 Nasal Cannula 2.0 28 01/09/18 20:31 110 20 98 Nasal Cannula 2.0 28 01/09/18 20:00 98.6 108 18 110/69 97 98.6 01/09/18 16:00 98.0 91 19 112/56 98 98.0 01/09/18 16:00 Nasal Cannula 2.0 Intake and Output 01/09/18 01/10/18 19:00 07:00 Intake Total 480 ml 260 ml Balance 480 ml 260 ml Intake Oral 480 ml 260 ml # Voids 4 3 Height (Feet): 5 Height (Inches): 4.00 Weight (Pounds): 146 Grisel Jay M.D. Jan 10, 2018 14:23
--- NOTE | 2018-01-10 14:23 | General Progress Note ---
Assessment/Plan Problem List: (1) Hyperkalemia ICD Codes: E87.5 - Hyperkalemia SNOMED: 36695872 (2) Acidosis ICD Codes: E87.2 - Acidosis SNOMED: 89150738 (3) CO2 retention ICD Codes: E87.2 - Acidosis SNOMED: 77360838 (4) Respiratory distress ICD Codes: R06.03 - Acute respiratory distress SNOMED: 679208841 (5) COPD (chronic obstructive pulmonary disease) ICD Codes: J44.9 - Chronic obstructive pulmonary disease, unspecified SNOMED: 25813608 (6) Hepatitis C ICD Codes: B19.20 - Unspecified viral hepatitis C without hepatic coma SNOMED: 36350262 (7) Acute and chronic respiratory failure ICD Codes: J96.20 - Acute and chronic respiratory failure, unspecified whether with hypoxia or hypercapnia SNOMED: 70152748 (8) Diabetes mellitus out of control ICD Codes: E11.65 - Type 2 diabetes mellitus with hyperglycemia SNOMED: 10396453, 941993601 (9) Tachycardia ICD Codes: R00.0 - Tachycardia, unspecified SNOMED: 0522027 (10) Hypertension ICD Codes: I10 - Essential (primary) hypertension SNOMED: 89200128 Assessment/Plan 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 the pt has impairment of memory. Objective Last 24 Hour Vital Signs Date Time Temp Pulse Resp B/P (MAP) Pulse Ox O2 Delivery O2 Flow Rate FiO2 01/10/18 12:55 82 20 99 Nasal Cannula 2.0 28 01/10/18 12:46 80 20 98 Nasal Cannula 2.0 28 01/10/18 11:42 98.2 97 20 107/60 95 98.2 01/10/18 10:42 103 114/61 01/10/18 08:15 97.6 107 20 116/73 100 97.6 01/10/18 07:17 86 20 99 Nasal Cannula 2.0 28 01/10/18 07:07 Nasal Cannula 2.0 28 01/10/18 07:07 97 Nasal Cannula 2.0 28 01/10/18 07:06 86 20 97 Nasal Cannula 2.0 28 01/10/18 04:00 98.3 104 18 101/71 99 98.3 01/10/18 00:00 98.4 111 18 102/62 100 98.4 01/09/18 20:42 112 20 99 Nasal Cannula 2.0 28 01/09/18 20:31 98 Nasal Cannula 2.0 28 01/09/18 20:31 Nasal Cannula 2.0 28 01/09/18 20:31 110 20 98 Nasal Cannula 2.0 28 01/09/18 20:00 98.6 108 18 110/69 97 98.6 01/09/18 16:00 98.0 91 19 112/56 98 98.0 01/09/18 16:00 Nasal Cannula 2.0 Intake and Output 01/09/18 01/10/18 19:00 07:00 Intake Total 480 ml 260 ml Balance 480 ml 260 ml Intake Oral 480 ml 260 ml # Voids 4 3 Height (Feet): 5 Height (Inches): 4.00 Weight (Pounds): 146 General Appearance: WD/WN, no apparent distress, alert Grisel Jay M.D. Jan 10, 2018 14:22
--- NOTE | 2018-01-10 15:03 | Pulmonology Progress Note ---
Assessment/Plan Problems: (1) Acute and chronic respiratory failure (2) COPD (chronic obstructive pulmonary disease) (3) Hepatitis C Assessment/Plan no new complains all reviewed no new events no new complains respiratory treatment dc steroids BP controlled tachycardia secondary to agitation. dc planning in progress pts daughter signed for hospice care Subjective ROS Limited/Unobtainable: No Constitutional: Reports: no symptoms HEENT: Repors: no symptoms Respiratory: Reports: no symptoms Allergies: Coded Allergies: Shrimp (Unverified Allergy, Unknown, 12/04/17) Objective Last 24 Hour Vital Signs Date Time Temp Pulse Resp B/P (MAP) Pulse Ox O2 Delivery O2 Flow Rate FiO2 01/10/18 12:55 82 20 99 Nasal Cannula 2.0 28 01/10/18 12:46 80 20 98 Nasal Cannula 2.0 28 01/10/18 11:42 98.2 97 20 107/60 95 98.2 01/10/18 10:42 103 114/61 01/10/18 08:15 97.6 107 20 116/73 100 97.6 01/10/18 07:17 86 20 99 Nasal Cannula 2.0 28 01/10/18 07:07 Nasal Cannula 2.0 28 01/10/18 07:07 97 Nasal Cannula 2.0 28 01/10/18 07:06 86 20 97 Nasal Cannula 2.0 28 01/10/18 04:00 98.3 104 18 101/71 99 98.3 01/10/18 00:00 98.4 111 18 102/62 100 98.4 01/09/18 20:42 112 20 99 Nasal Cannula 2.0 28 01/09/18 20:31 98 Nasal Cannula 2.0 28 01/09/18 20:31 Nasal Cannula 2.0 28 01/09/18 20:31 110 20 98 Nasal Cannula 2.0 28 01/09/18 20:00 98.6 108 18 110/69 97 98.6 01/09/18 16:00 98.0 91 19 112/56 98 98.0 01/09/18 16:00 Nasal Cannula 2.0 Intake and Output 01/09/18 01/10/18 19:00 07:00 Intake Total 480 ml 260 ml Balance 480 ml 260 ml Intake Oral 480 ml 260 ml # Voids 4 3 Objective General Appearance: cachetic HEENT: normocephalic Respiratory/Chest: chest wall non-tender, lungs clear Breasts: no masses Cardiovascular: normal peripheral pulses, normal rate Abdomen: normal bowel sounds, soft, non tender Extremities: no cyanosis, no clubbing 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, no motor/sensory deficits Lymphatic: no neck adenopathy Current Medications Medications (Trade) Dose Ordered Sig/Hansel Route PRN Reason Start Time Stop Time Status Last Admin Dose Admin Acetaminophen (Tylenol) 650 mg Q4H PRN ORAL T>100.5 12/30/17 07:31 01/19/18 15:30 01/10/18 06:51 Alprazolam (Xanax) 0.25 mg Q6H PRN ORAL For Anxiety 01/08/18 14:45 01/15/18 14:44 Amlodipine Besylate (Norvasc) 5 mg DAILY ORAL 12/27/17 09:00 01/20/18 08:59 01/08/18 08:54 Clonidine HCl (Catapres Tab) 0.1 mg Q4H PRN ORAL sbp more than 160mmHg 12/26/17 15:31 01/23/18 15:30 Dextrose (Dextrose 50%) 25 ml STAT PRN IV Blood Sugar btwn 60-69 mg/dL 12/26/17 15:33 01/25/18 15:32 01/04/18 16:45 Dextrose (Dextrose 50%) 50 ml STAT PRN IV BS less than 60mg/dl 12/26/17 15:34 01/25/18 15:33 Docusate Sodium (Colace) 100 mg THREE TIMES A DAY ORAL 12/26/17 18:00 01/22/18 09:59 01/10/18 13:39 Heparin Sodium (Porcine) (Heparin 5000 units/ml) 5,000 units EVERY 12 HOURS SUBQ 12/26/17 21:00 01/20/18 08:59 01/07/18 08:58 Insulin Aspart (NovoLOG) BEFORE MEALS AND HS SUBQ 12/26/17 16:30 01/22/18 20:59 01/10/18 12:42 Insulin Aspart (NovoLOG) 8 units NOVOTIAC SUBQ 01/10/18 11:50 01/23/18 07:29 01/10/18 12:44 Insulin Detemir (Levemir) 8 units EVERY 12 HOURS SUBQ 01/10/18 09:00 01/23/18 20:59 Ipratropium [place] (Atrovent) 500 mcg TIDRT HHN 01/08/18 19:00 01/13/18 18:59 01/10/18 12:45 Mineral Oil (Fleet's Mineral Oil Enema) 133 ml EVERY OTHER DAY RECTAL 12/27/17 09:00 01/22/18 09:59 01/06/18 08:48 Nitroglycerin (Ntg) 0.4 mg Q5M X 3 DOSES PRN SL Prn Chest Pain 12/26/17 15:59 01/19/18 15:58 Ondansetron HCl (Zofran) 4 mg Q6H PRN IVP Nausea & Vomiting 12/26/17 16:00 01/19/18 15:59 01/04/18 12:11 Polyethylene Glycol (Miralax) 17 gm BEDTIME ORAL 12/26/17 21:00 01/22/18 20:59 01/09/18 21:36 Promethazine HCl/ Codeine (Phenergan with Codeine) 5 ml Q6H PRN ORAL cough 12/26/17 16:01 01/23/18 16:00 Risperidone (RisperDAL) 1 mg BID ORAL 12/26/17 18:00 01/20/18 13:14 01/09/18 17:16 Sennosides (Senokot) 1 tab DAILY ORAL 12/27/17 09:00 01/22/18 14:59 01/09/18 09:29 Vitamin A/Vitamin D (A & D Oint) 1 applic EVERY 12 HOURS TOPIC 12/26/17 21:00 01/20/18 22:59 01/10/18 10:48 Leni Watts MD Jan 10, 2018 15:03
[2018-01-10] MEDS: Miralax 17gm pkt ORAL SCH (21:00)
--- NOTE | 2018-01-10 23:56 | General Progress Note ---
Assessment/Plan Assessment/Plan #. Anemia due to underlying chronic disease. --> Continue to closely monitor. --> Blood transfusion not required unless symptomatic or hgb <7 --> Reviewed anemia workup. Iron 110, TIBC 230, Ferritin 90, B12 821, Folate 6.6 , TSH 1.4 --> Hemoglobin stable, blood transfusion not needed at this time #. Thrombocytopenia, secondary to hepatitis C --> Hep A and C antibody test (+) --> Monitor and trend cbc daily. --> Improving. Transfuse if platelets <20k #. Leukopenia, likely secondary to hepatitis C, currently improved. --> No leukocytosis is noted. The patient has been afebrile. --> Resolved at this time. #. Acute on hypoxic respiratory failure, status post tracheostomy, improved. #. Hepatitis C. Management as an outpatient. --> Appreciate Infectious Disease service evaluation. #. Hypertension. Systolic blood pressure goal less than 140. --> Improved. #. COPD. #. Encephalopathy. DC Planning. Subjective Date patient seen: Jan 10, 2018 Constitutional: Denies: no symptoms, chills, diaphoresis, fever, malaise, weakness, other HEENT: Denies: no symptoms, eye pain, blurred vision, tearing, double vision, ear pain, ear discharge, nose pain, nose congestion, throat pain, throat swelling, mouth pain, mouth swelling, other Cardiovascular: Denies: no symptoms, chest pain, edema, irregular heart rate, lightheadedness, palpitations, syncope, other Respiratory: Denies: no symptoms, cough, orthopnea, shortness of breath, SOB with excertion, SOB at rest, sputum, stridor, wheezing, other Gastrointestinal/Abdominal: Denies: no symptoms, abdomen distended, abdominal pain, black stools, tarry stools, blood in stool, constipated, diarrhea, difficulty swallowing, nausea, poor appetite, poor fluid intake, rectal bleeding , vomiting, other Genitourinary: Denies: no symptoms, burning, discharge, frequency, flank pain, hematuria, incontinence, pain, urgency, other Neurologic/Psychiatric: Denies: no symptoms, anxiety, depressed, emotional problems, headache, numbness, paresthesia, pre-existing deficit, seizure, tingling, tremors, weakness, other Hematologic/Lymphatic: Reports: anemia Allergies: Coded Allergies: Shrimp (Unverified Allergy, Unknown, 12/04/17) Subjective Confused. Pending placement. Tachycardia. Objective Last 24 Hour Vital Signs Date Time Temp Pulse Resp B/P (MAP) Pulse Ox O2 Delivery O2 Flow Rate FiO2 01/10/18 19:47 98.2 103 20 93/58 100 Nasal Cannula 98.2 01/10/18 19:30 Nasal Cannula 2.0 28 01/10/18 19:30 95 Nasal Cannula 2.0 28 01/10/18 19:00 86 20 97 Nasal Cannula 2.0 28 01/10/18 19:00 84 20 95 Nasal Cannula 2.0 28 01/10/18 15:52 98.2 102 20 99/55 100 98.2 01/10/18 15:52 Nasal Cannula 2.0 01/10/18 12:55 82 20 99 Nasal Cannula 2.0 01/10/18 12:46 80 20 98 Nasal Cannula 2.0 01/10/18 11:42 Nasal Cannula 2.0 01/10/18 11:42 98.2 97 20 107/60 95 98.2 01/10/18 10:42 103 114/61 01/10/18 08:15 97.6 107 20 116/73 100 97.6 01/10/18 08:15 Nasal Cannula 2.0 01/10/18 07:17 86 20 99 Nasal Cannula 2.0 01/10/18 07:07 Nasal Cannula 2.0 01/10/18 07:07 97 Nasal Cannula 2.0 01/10/18 07:06 86 20 97 Nasal Cannula 2.0 01/10/18 04:00 98.3 104 18 101/71 99 98.3 01/10/18 00:00 98.4 111 18 102/62 100 98.4 Intake and Output 01/09/18 01/10/18 19:00 07:00 Intake Total 480 ml 260 ml Balance 480 ml 260 ml Intake Oral 480 ml 260 ml # Voids 4 3 Height (Feet): 5 Height (Inches): 4.00 Weight (Pounds): 146 General Appearance: confused Respiratory/Chest: decreased breath sounds Abdomen: normal bowel sounds, non tender PEPITO PRADO Jan 10, 2018 23:56
[2018-01-11] VITALS: BP 93/53
[2018-01-11 04:03] VITALS: BP 109/63
[2018-01-11] MEDS: NovoLOG Insulin Flexpen SUBQ SCH ×7 (06:31→22:04)
[2018-01-11 08:00] VITALS: BP 109/62
[2018-01-11] MEDS: Ipratropium 0.02% Inh Soln 2.5ml UD HHN SCH ×3 (08:00→21:53)
[2018-01-11] MEDS: Docusate 100mg cap ORAL SCH ×3 (08:50→17:53)
[2018-01-11] MEDS: Sennosides 8.6mg ORAL SCH (08:50)
[2018-01-11] MEDS: Heparin 5000 units/ml inj SUBQ SCH ×2 (08:55→21:00)
[2018-01-11] MEDS: Levemir Flexpen SUBQ SCH ×2 (08:56→22:05)
[2018-01-11] MEDS: Vitamin A&D Oint 2oz Tube TOPIC SCH ×2 (09:01→22:06)
--- NOTE | 2018-01-11 09:23 | General Progress Note ---
Assessment/Plan Problem List: (1) Diabetes mellitus out of control ICD Codes: E11.65 - Type 2 diabetes mellitus with hyperglycemia SNOMED: 20575395, 855471356 (2) COPD (chronic obstructive pulmonary disease) ICD Codes: J44.9 - Chronic obstructive pulmonary disease, unspecified SNOMED: 01925396 (3) Acute and chronic respiratory failure ICD Codes: J96.20 - Acute and chronic respiratory failure, unspecified whether with hypoxia or hypercapnia SNOMED: 19897073 Assessment/Plan continue Levemir 8 units bid continue Novolog 8 units ac tid continue NISS Subjective Allergies: Coded Allergies: Shrimp (Unverified Allergy, Unknown, 12/04/17) Subjective events noted glucose values mildly elevated off steroid Objective Last 24 Hour Vital Signs Date Time Temp Pulse Resp B/P (MAP) Pulse Ox O2 Delivery O2 Flow Rate FiO2 01/11/18 08:54 83 109/63 01/11/18 08:07 83 18 98 Nasal Cannula 2.0 28 01/11/18 08:00 98.1 88 18 109/62 100 98.1 01/11/18 07:58 Nasal Cannula 2.0 28 01/11/18 07:58 96 Nasal Cannula 2.0 28 01/11/18 07:58 75 18 95 Nasal Cannula 2.0 28 01/11/18 04:03 98.2 101 20 109/63 100 Room Air 98.2 01/11/18 00:00 98.2 87 20 93/53 98 Room Air 98.2 01/10/18 19:47 98.2 103 20 93/58 100 Nasal Cannula 98.2 01/10/18 19:30 Nasal Cannula 2.0 28 01/10/18 19:30 95 Nasal Cannula 2.0 28 01/10/18 19:00 86 20 97 Nasal Cannula 2.0 28 01/10/18 19:00 84 20 95 Nasal Cannula 2.0 28 01/10/18 15:52 98.2 102 20 99/55 100 98.2 01/10/18 15:52 Nasal Cannula 2.0 01/10/18 12:55 82 20 99 Nasal Cannula 2.0 28 01/10/18 12:46 80 20 98 Nasal Cannula 2.0 28 01/10/18 11:42 Nasal Cannula 2.0 01/10/18 11:42 98.2 97 20 107/60 95 98.2 01/10/18 10:42 103 114/61 Intake and Output 01/10/18 01/11/18 19:00 07:00 Intake Total 720 ml 480 ml Balance 720 ml 480 ml Intake Oral 720 ml 480 ml # Voids 4 4 Height (Feet): 5 Height (Inches): 4.00 Weight (Pounds): 145 General Appearance: no apparent distress Neck: non-tender Cardiovascular: normal peripheral pulses Respiratory/Chest: decreased breath sounds Abdomen: normal bowel sounds Edema: 1+ Arm (L), 1+ Arm (R), 1+ Leg (L), 1+ Leg (R), 1+ Pedal (L), 1+ Pedal ( R), 1+ Generalized Objective Current Medications Medications (Trade) Dose Ordered Sig/Hansel Route PRN Reason Start Time Stop Time Status Last Admin Dose Admin Acetaminophen (Tylenol) 650 mg Q4H PRN ORAL T>100.5 12/30/17 07:31 01/19/18 15:30 01/10/18 06:51 Alprazolam (Xanax) 0.25 mg Q6H PRN ORAL For Anxiety 01/08/18 14:45 01/15/18 14:44 Amlodipine Besylate (Norvasc) 5 mg DAILY ORAL 12/27/17 09:00 01/20/18 08:59 01/11/18 08:54 Clonidine HCl (Catapres Tab) 0.1 mg Q4H PRN ORAL sbp more than 160mmHg 12/26/17 15:31 01/23/18 15:30 Dextrose (Dextrose 50%) 25 ml STAT PRN IV Blood Sugar btwn 60-69 mg/dL 12/26/17 15:33 01/25/18 15:32 01/04/18 16:45 Dextrose (Dextrose 50%) 50 ml STAT PRN IV BS less than 60mg/dl 12/26/17 15:34 01/25/18 15:33 Docusate Sodium (Colace) 100 mg THREE TIMES A DAY ORAL 12/26/17 18:00 01/22/18 09:59 01/11/18 08:50 Heparin Sodium (Porcine) (Heparin 5000 units/ml) 5,000 units EVERY 12 HOURS SUBQ 12/26/17 21:00 01/20/18 08:59 01/07/18 08:58 Insulin Aspart (NovoLOG) BEFORE MEALS AND HS SUBQ 12/26/17 16:30 01/22/18 20:59 01/11/18 06:38 Insulin Aspart (NovoLOG) 8 units NOVOTIAC SUBQ 01/10/18 11:50 01/23/18 07:29 01/11/18 06:31 Insulin Detemir (Levemir) 8 units EVERY 12 HOURS SUBQ 01/10/18 09:00 01/23/18 20:59 01/11/18 08:56 Ipratropium [place] (Atrovent) 500 mcg TIDRT HHN 01/08/18 19:00 01/13/18 18:59 01/11/18 08:00 Mineral Oil (Fleet's Mineral Oil Enema) 133 ml EVERY OTHER DAY RECTAL 12/27/17 09:00 01/22/18 09:59 01/06/18 08:48 Nitroglycerin (Ntg) 0.4 mg Q5M X 3 DOSES PRN SL Prn Chest Pain 12/26/17 15:59 01/19/18 15:58 Ondansetron HCl (Zofran) 4 mg Q6H PRN IVP Nausea & Vomiting 12/26/17 16:00 01/19/18 15:59 01/04/18 12:11 Polyethylene Glycol (Miralax) 17 gm BEDTIME ORAL 12/26/17 21:00 01/22/18 20:59 01/09/18 21:36 Promethazine HCl/ Codeine (Phenergan with Codeine) 5 ml Q6H PRN ORAL cough 12/26/17 16:01 01/23/18 16:00 Risperidone (RisperDAL) 1 mg BID ORAL 12/26/17 18:00 01/20/18 13:14 01/11/18 08:50 Sennosides (Senokot) 1 tab DAILY ORAL 12/27/17 09:00 01/22/18 14:59 01/11/18 08:50 Vitamin A/Vitamin D (A & D Oint) 1 applic EVERY 12 HOURS TOPIC 12/26/17 21:00 01/20/18 22:59 01/11/18 09:01 Item Value Date Time Bedside Blood Glucose 208 mg/dl H 01/11/18 0856 Bedside Blood Glucose 208 mg/dl H 01/11/18 0638 Bedside Blood Glucose 313 mg/dl H 01/10/18 2129 Bedside Blood Glucose 339 mg/dl H 01/10/18 1700 Bedside Blood Glucose 223 mg/dl H 01/10/18 1244 Bedside Blood Glucose 272 mg/dl H 01/10/18 0637 FEMI MCKEON Jan 11, 2018 09:23
[2018-01-11 12:00] VITALS: BP 108/70
--- NOTE | 2018-01-11 14:52 | Pulmonology Progress Note ---
Assessment/Plan Problems: (1) Acute and chronic respiratory failure (2) COPD (chronic obstructive pulmonary disease) (3) Hepatitis C Assessment/Plan awakeno new complains all reviewed no new events no new complains respiratory treatment dc steroids BP controlled tachycardia secondary to agitation. dc planning in progress pts daughter signed for hospice care, awaiting placement Subjective ROS Limited/Unobtainable: No Constitutional: Reports: no symptoms HEENT: Repors: no symptoms Respiratory: Reports: no symptoms Allergies: Coded Allergies: Shrimp (Unverified Allergy, Unknown, 12/04/17) Objective Last 24 Hour Vital Signs Date Time Temp Pulse Resp B/P (MAP) Pulse Ox O2 Delivery O2 Flow Rate FiO2 01/11/18 13:37 79 18 98 Nasal Cannula 2.0 28 01/11/18 13:29 78 18 95 Nasal Cannula 2.0 28 01/11/18 12:00 97.7 108 19 108/70 97 97.7 01/11/18 08:54 83 109/63 01/11/18 08:07 83 18 98 Nasal Cannula 2.0 28 01/11/18 08:00 98.1 88 18 109/62 100 98.1 01/11/18 07:58 Nasal Cannula 2.0 28 01/11/18 07:58 96 Nasal Cannula 2.0 28 01/11/18 07:58 75 18 95 Nasal Cannula 2.0 28 01/11/18 04:03 98.2 101 20 109/63 100 Room Air 98.2 01/11/18 00:00 98.2 87 20 93/53 98 Room Air 98.2 01/10/18 19:47 98.2 103 20 93/58 100 Nasal Cannula 98.2 01/10/18 19:30 Nasal Cannula 2.0 28 01/10/18 19:30 95 Nasal Cannula 2.0 28 01/10/18 19:00 86 20 97 Nasal Cannula 2.0 28 01/10/18 19:00 84 20 95 Nasal Cannula 2.0 28 01/10/18 15:52 98.2 102 20 99/55 100 98.2 01/10/18 15:52 Nasal Cannula 2.0 Intake and Output 01/10/18 01/11/18 19:00 07:00 Intake Total 720 ml 480 ml Balance 720 ml 480 ml Intake Oral 720 ml 480 ml # Voids 4 4 Objective General Appearance: cachetic HEENT: normocephalic Respiratory/Chest: chest wall non-tender, lungs clear Breasts: no masses Cardiovascular: normal peripheral pulses, normal rate Abdomen: normal bowel sounds, soft, non tender Extremities: no cyanosis, no clubbing 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, no motor/sensory deficits Lymphatic: no neck adenopathy Current Medications Medications (Trade) Dose Ordered Sig/Hansel Route PRN Reason Start Time Stop Time Status Last Admin Dose Admin Acetaminophen (Tylenol) 650 mg Q4H PRN ORAL T>100.5 12/30/17 07:31 01/19/18 15:30 01/10/18 06:51 Alprazolam (Xanax) 0.25 mg Q6H PRN ORAL For Anxiety 01/08/18 14:45 01/15/18 14:44 Amlodipine Besylate (Norvasc) 5 mg DAILY ORAL 12/27/17 09:00 01/20/18 08:59 01/11/18 08:54 Clonidine HCl (Catapres Tab) 0.1 mg Q4H PRN ORAL sbp more than 160mmHg 12/26/17 15:31 01/23/18 15:30 Dextrose (Dextrose 50%) 25 ml STAT PRN IV Blood Sugar btwn 60-69 mg/dL 12/26/17 15:33 01/25/18 15:32 01/04/18 16:45 Dextrose (Dextrose 50%) 50 ml STAT PRN IV BS less than 60mg/dl 12/26/17 15:34 01/25/18 15:33 Docusate Sodium (Colace) 100 mg THREE TIMES A DAY ORAL 12/26/17 18:00 01/22/18 09:59 01/11/18 13:16 Heparin Sodium (Porcine) (Heparin 5000 units/ml) 5,000 units EVERY 12 HOURS SUBQ 12/26/17 21:00 01/20/18 08:59 01/07/18 08:58 Insulin Aspart (NovoLOG) BEFORE MEALS AND HS SUBQ 12/26/17 16:30 01/22/18 20:59 01/11/18 11:46 Insulin Aspart (NovoLOG) 8 units NOVOTIAC SUBQ 01/10/18 11:50 01/23/18 07:29 01/11/18 12:54 Insulin Detemir (Levemir) 8 units EVERY 12 HOURS SUBQ 01/10/18 09:00 01/23/18 20:59 01/11/18 08:56 Ipratropium [place] (Atrovent) 500 mcg TIDRT HHN 01/08/18 19:00 01/13/18 18:59 01/11/18 13:29 Mineral Oil (Fleet's Mineral Oil Enema) 133 ml EVERY OTHER DAY RECTAL 12/27/17 09:00 01/22/18 09:59 01/06/18 08:48 Nitroglycerin (Ntg) 0.4 mg Q5M X 3 DOSES PRN SL Prn Chest Pain 12/26/17 15:59 01/19/18 15:58 Ondansetron HCl (Zofran) 4 mg Q6H PRN IVP Nausea & Vomiting 12/26/17 16:00 01/19/18 15:59 01/04/18 12:11 Polyethylene Glycol (Miralax) 17 gm BEDTIME ORAL 12/26/17 21:00 01/22/18 20:59 01/09/18 21:36 Promethazine HCl/ Codeine (Phenergan with Codeine) 5 ml Q6H PRN ORAL cough 12/26/17 16:01 01/23/18 16:00 Risperidone (RisperDAL) 1 mg BID ORAL 12/26/17 18:00 01/20/18 13:14 01/11/18 08:50 Sennosides (Senokot) 1 tab DAILY ORAL 12/27/17 09:00 01/22/18 14:59 01/11/18 08:50 Vitamin A/Vitamin D (A & D Oint) 1 applic EVERY 12 HOURS TOPIC 12/26/17 21:00 01/20/18 22:59 01/11/18 09:01 Leni Watts MD Jan 11, 2018 14:52
--- NOTE | 2018-01-11 15:10 | General Progress Note ---
Assessment/Plan Problem List: (1) Hyperkalemia ICD Codes: E87.5 - Hyperkalemia SNOMED: 60070475 (2) Acidosis ICD Codes: E87.2 - Acidosis SNOMED: 84283501 (3) CO2 retention ICD Codes: E87.2 - Acidosis SNOMED: 31415720 (4) Respiratory distress ICD Codes: R06.03 - Acute respiratory distress SNOMED: 285385094 (5) COPD (chronic obstructive pulmonary disease) ICD Codes: J44.9 - Chronic obstructive pulmonary disease, unspecified SNOMED: 80225065 (6) Hepatitis C ICD Codes: B19.20 - Unspecified viral hepatitis C without hepatic coma SNOMED: 63677487 (7) Acute and chronic respiratory failure ICD Codes: J96.20 - Acute and chronic respiratory failure, unspecified whether with hypoxia or hypercapnia SNOMED: 67775474 (8) Diabetes mellitus out of control ICD Codes: E11.65 - Type 2 diabetes mellitus with hyperglycemia SNOMED: 34715559, 471446152 (9) Tachycardia ICD Codes: R00.0 - Tachycardia, unspecified SNOMED: 8018285 (10) Hypertension ICD Codes: I10 - Essential (primary) hypertension SNOMED: 79226773 Status: stable, unchanged Assessment/Plan encephalopathy [place] [facility] [place] Subjective Date patient seen: Jan 11, 2018 Neurologic/Psychiatric: Reports: anxiety, depressed, emotional problems Allergies: Coded Allergies: Shrimp (Unverified Allergy, Unknown, 12/04/17) Subjective no agitation. the pt has is doing well Objective Last 24 Hour Vital Signs Date Time Temp Pulse Resp B/P (MAP) Pulse Ox O2 Delivery O2 Flow Rate FiO2 01/11/18 13:37 79 18 98 Nasal Cannula 2.0 28 01/11/18 13:29 78 18 95 Nasal Cannula 2.0 28 01/11/18 12:00 97.7 108 19 108/70 97 97.7 01/11/18 08:54 83 109/63 01/11/18 08:07 83 18 98 Nasal Cannula 2.0 28 01/11/18 08:00 98.1 88 18 109/62 100 98.1 01/11/18 07:58 Nasal Cannula 2.0 28 01/11/18 07:58 96 Nasal Cannula 2.0 28 01/11/18 07:58 75 18 95 Nasal Cannula 2.0 01/11/18 04:03 98.2 101 20 109/63 100 Room Air 98.2 01/11/18 00:00 98.2 87 20 93/53 98 Room Air 98.2 01/10/18 19:47 98.2 103 20 93/58 100 Nasal Cannula 98.2 01/10/18 19:30 Nasal Cannula 2.0 28 01/10/18 19:30 95 Nasal Cannula 2.0 28 01/10/18 19:00 86 20 97 Nasal Cannula 2.0 28 01/10/18 19:00 84 20 95 Nasal Cannula 2.0 28 01/10/18 15:52 98.2 102 20 99/55 100 98.2 01/10/18 15:52 Nasal Cannula 2.0 Intake and Output 01/10/18 01/11/18 19:00 07:00 Intake Total 720 ml 480 ml Balance 720 ml 480 ml Intake Oral 720 ml 480 ml # Voids 4 4 Height (Feet): 5 Height (Inches): 4.00 Weight (Pounds): 145 Grisel Jay M.D. Jan 11, 2018 15:10
[2018-01-11 16:00] VITALS: BP 108/64
--- NOTE | 2018-01-11 18:00 | Infectious Diseases Prog Note ---
Assessment/Plan Assessment/Plan Assessment: Acute hypoxic resp failure improved COPD exacerbation- -CXR: No acute disease Afebrile, no leukocytosis Recent acute hypoxic failure and PNA 11/2015 -sp cx 12/04: E.coli (davila S), P. mirabilis (davila S) Influenza sc : Neg transaminitis improving Hx of Hep C Hep panel : A Imm ; B not immune HIV Neg hx of trach s/p removal COPD Dm2 HTN NH resident Plan: - Monitor pt off of AB Rx -12/24 SP Levaquin # 5 /5 -12/10 SP Cefepime #7 -12/06 SP Vanco #3 -Monitor CBC/BMP, temperatures -aspiration precautions Hem fup, re TCP Hep C fup and probable need for Hep B Vax as out pt Subjective Allergies: Coded Allergies: Shrimp (Unverified Allergy, Unknown, 12/04/17) Subjective afebrile off abx no leukcoytosis Objective Vital Signs Last 24 Hour Vital Signs Date Time Temp Pulse Resp B/P (MAP) Pulse Ox O2 Delivery O2 Flow Rate FiO2 01/11/18 16:00 97.7 84 18 108/64 100 97.7 01/11/18 13:37 79 18 98 Nasal Cannula 2.0 28 01/11/18 13:29 78 18 95 Nasal Cannula 2.0 28 01/11/18 12:00 97.7 108 19 108/70 97 97.7 01/11/18 08:54 83 109/63 01/11/18 08:07 83 18 98 Nasal Cannula 2.0 28 01/11/18 08:00 98.1 88 18 109/62 100 98.1 01/11/18 07:58 Nasal Cannula 2.0 28 01/11/18 07:58 96 Nasal Cannula 2.0 28 01/11/18 07:58 75 18 95 Nasal Cannula 2.0 28 01/11/18 04:03 98.2 101 20 109/63 100 Room Air 98.2 01/11/18 00:00 98.2 87 20 93/53 98 Room Air 98.2 01/10/18 19:47 98.2 103 20 93/58 100 Nasal Cannula 98.2 01/10/18 19:30 Nasal Cannula 2.0 28 01/10/18 19:30 95 Nasal Cannula 2.0 28 01/10/18 19:00 86 20 97 Nasal Cannula 2.0 28 01/10/18 19:00 84 20 95 Nasal Cannula 2.0 28 Height (Feet): 5 Height (Inches): 4.00 Weight (Pounds): 145 Objective General Appearance: cachetic HEENT: normocephalic Respiratory/Chest: chest wall non-tender, lungs clear Breasts: no masses Cardiovascular: normal peripheral pulses, normal rate Abdomen: normal bowel sounds, soft, non tender Extremities: no cyanosis, no clubbing Neurologic/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: 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 II-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 grossly normal, no motor/sensory deficits Lymphatic: no neck adenopathy Current Medications Medications (Trade) Dose Ordered Sig/Hansel Route PRN Reason Start Time Stop Time Status Last Admin Dose Admin Acetaminophen (Tylenol) 650 mg Q4H PRN ORAL T>100.5 12/30/17 07:31 01/19/18 15:30 01/10/18 06:51 Alprazolam (Xanax) 0.25 mg Q6H PRN ORAL For Anxiety 01/08/18 14:45 01/15/18 14:44 Amlodipine Besylate (Norvasc) 5 mg DAILY ORAL 12/27/17 09:00 01/20/18 08:59 01/11/18 08:54 Clonidine HCl (Catapres Tab) 0.1 mg Q4H PRN ORAL sbp more than 160mmHg 12/26/17 15:31 01/23/18 15:30 Dextrose (Dextrose 50%) 25 ml STAT PRN IV Blood Sugar btwn 60-69 mg/dL 12/26/17 15:33 01/25/18 15:32 01/04/18 16:45 Dextrose (Dextrose 50%) 50 ml STAT PRN IV BS less than 60mg/dl 12/26/17 15:34 01/25/18 15:33 Docusate Sodium (Colace) 100 mg THREE TIMES A DAY ORAL 12/26/17 18:00 01/22/18 09:59 01/11/18 17:53 Heparin Sodium (Porcine) (Heparin 5000 units/ml) 5,000 units EVERY 12 HOURS SUBQ 12/26/17 21:00 01/20/18 08:59 01/07/18 08:58 Insulin Aspart (NovoLOG) BEFORE MEALS AND HS SUBQ 12/26/17 16:30 01/22/18 20:59 01/11/18 16:44 Insulin Aspart (NovoLOG) 8 units NOVOTIAC SUBQ 01/10/18 11:50 01/23/18 07:29 01/11/18 17:20 Insulin Detemir (Levemir) 8 units EVERY 12 HOURS SUBQ 01/10/18 09:00 01/23/18 20:59 01/11/18 08:56 Ipratropium [place] (Atrovent) 500 mcg TIDRT HHN 01/08/18 19:00 01/13/18 18:59 01/11/18 13:29 Mineral Oil (Fleet's Mineral Oil Enema) 133 ml EVERY OTHER DAY RECTAL 12/27/17 09:00 01/22/18 09:59 01/06/18 08:48 Nitroglycerin (Ntg) 0.4 mg Q5M X 3 DOSES PRN SL Prn Chest Pain 12/26/17 15:59 01/19/18 15:58 Ondansetron HCl (Zofran) 4 mg Q6H PRN IVP Nausea & Vomiting 12/26/17 16:00 01/19/18 15:59 01/04/18 12:11 Polyethylene Glycol (Miralax) 17 gm BEDTIME ORAL 12/26/17 21:00 01/22/18 20:59 01/09/18 21:36 Promethazine HCl/ Codeine (Phenergan with Codeine) 5 ml Q6H PRN ORAL cough 12/26/17 16:01 01/23/18 16:00 Risperidone (RisperDAL) 1 mg BID ORAL 12/26/17 18:00 01/20/18 13:14 01/11/18 17:53 Sennosides (Senokot) 1 tab DAILY ORAL 12/27/17 09:00 01/22/18 14:59 01/11/18 08:50 Vitamin A/Vitamin D (A & D Oint) 1 applic EVERY 12 HOURS TOPIC 12/26/17 21:00 01/20/18 22:59 01/11/18 09:01 Caterina Elizondo M.D. Jan 11, 2018 18:00
[2018-01-11 19:34] VITALS: BP 99/50
[2018-01-11] MEDS: Miralax 17gm pkt ORAL SCH (21:00)
[2018-01-12] VITALS: BP 100/60
[2018-01-12 04:00] VITALS: BP 91/51
[2018-01-12] MEDS: NovoLOG Insulin Flexpen SUBQ SCH ×7 (05:57→21:50)
--- NOTE | 2018-01-12 06:45 | General Progress Note ---
Assessment/Plan Problem List: (1) Diabetes mellitus out of control ICD Codes: E11.65 - Type 2 diabetes mellitus with hyperglycemia SNOMED: 18930855, 091574642 (2) COPD (chronic obstructive pulmonary disease) ICD Codes: J44.9 - Chronic obstructive pulmonary disease, unspecified SNOMED: 67425302 (3) Acute and chronic respiratory failure ICD Codes: J96.20 - Acute and chronic respiratory failure, unspecified whether with hypoxia or hypercapnia SNOMED: 85212918 Assessment/Plan continue Levemir 8 units bid continue Novolog 8 units ac tid continue NISS Subjective Allergies: Coded Allergies: Shrimp (Unverified Allergy, Unknown, 12/04/17) All Systems: reviewed and negative except above Subjective events noted glucose values mildly elevated Objective Last 24 Hour Vital Signs Date Time Temp Pulse Resp B/P (MAP) Pulse Ox O2 Delivery O2 Flow Rate FiO2 01/12/18 05:25 97.5 01/12/18 04:00 97.5 97 20 91/51 100 Nasal Cannula 2.0 97.5 01/12/18 04:00 100 2.0 01/12/18 00:00 98.1 100 20 100/60 100 Room Air 98.1 01/12/18 00:00 100 Nasal Cannula 2.0 01/11/18 22:02 85 18 99 Nasal Cannula 2.0 01/11/18 21:54 106 18 97 Nasal Cannula 2.0 01/11/18 21:53 Nasal Cannula 2.0 01/11/18 21:53 97 Nasal Cannula 2.0 01/11/18 19:34 96.6 61 20 99/50 100 Room Air 96.6 01/11/18 16:00 97.7 84 18 108/64 100 97.7 01/11/18 13:37 79 18 98 Nasal Cannula 2.0 28 01/11/18 13:29 78 18 95 Nasal Cannula 2.0 28 01/11/18 12:00 97.7 108 19 108/70 97 97.7 01/11/18 08:54 83 109/63 01/11/18 08:07 83 18 98 Nasal Cannula 2.0 28 01/11/18 08:00 98.1 88 18 109/62 100 98.1 01/11/18 07:58 Nasal Cannula 2.0 28 01/11/18 07:58 96 Nasal Cannula 2.0 28 01/11/18 07:58 75 18 95 Nasal Cannula 2.0 28 Intake and Output 01/11/18 01/12/18 19:00 07:00 Intake Total 800 ml 300 ml Balance 800 ml 300 ml Intake Oral 800 ml 300 ml # Voids 4 2 Height (Feet): 5 Height (Inches): 4.00 Weight (Pounds): 146 General Appearance: no apparent distress Neck: normal alignment Cardiovascular: normal rate Respiratory/Chest: decreased breath sounds Abdomen: normal bowel sounds Edema: no edema noted Arm (L), no edema noted Arm (R), no edema noted Leg (L), no edema noted Leg (R), no edema noted Pedal (L), no edema noted Pedal (R), no edema noted Generalized Objective Current Medications Medications (Trade) Dose Ordered Sig/Hansel Route PRN Reason Start Time Stop Time Status Last Admin Dose Admin Acetaminophen (Tylenol) 650 mg Q4H PRN ORAL T>100.5 12/30/17 07:31 01/19/18 15:30 01/12/18 04:26 Alprazolam (Xanax) 0.25 mg Q6H PRN ORAL For Anxiety 01/08/18 14:45 01/15/18 14:44 Amlodipine Besylate (Norvasc) 5 mg DAILY ORAL 12/27/17 09:00 01/20/18 08:59 01/11/18 08:54 Clonidine HCl (Catapres Tab) 0.1 mg Q4H PRN ORAL sbp more than 160mmHg 12/26/17 15:31 01/23/18 15:30 Dextrose (Dextrose 50%) 25 ml STAT PRN IV Blood Sugar btwn 60-69 mg/dL 12/26/17 15:33 01/25/18 15:32 01/04/18 16:45 Dextrose (Dextrose 50%) 50 ml STAT PRN IV BS less than 60mg/dl 12/26/17 15:34 01/25/18 15:33 Docusate Sodium (Colace) 100 mg THREE TIMES A DAY ORAL 12/26/17 18:00 01/22/18 09:59 01/11/18 17:53 Heparin Sodium (Porcine) (Heparin 5000 units/ml) 5,000 units EVERY 12 HOURS SUBQ 12/26/17 21:00 01/20/18 08:59 01/07/18 08:58 Insulin Aspart (NovoLOG) BEFORE MEALS AND HS SUBQ 12/26/17 16:30 01/22/18 20:59 01/12/18 05:57 Insulin Aspart (NovoLOG) 8 units NOVOTIAC SUBQ 01/10/18 11:50 01/23/18 07:29 01/12/18 06:00 Insulin Detemir (Levemir) 8 units EVERY 12 HOURS SUBQ 01/10/18 09:00 01/23/18 20:59 01/11/18 22:05 Ipratropium [place] (Atrovent) 500 mcg TIDRT HHN 01/08/18 19:00 01/13/18 18:59 01/11/18 21:53 Mineral Oil (Fleet's Mineral Oil Enema) 133 ml EVERY OTHER DAY RECTAL 12/27/17 09:00 01/22/18 09:59 01/06/18 08:48 Nitroglycerin (Ntg) 0.4 mg Q5M X 3 DOSES PRN SL Prn Chest Pain 12/26/17 15:59 01/19/18 15:58 Ondansetron HCl (Zofran) 4 mg Q6H PRN IVP Nausea & Vomiting 12/26/17 16:00 01/19/18 15:59 01/04/18 12:11 Polyethylene Glycol (Miralax) 17 gm BEDTIME ORAL 12/26/17 21:00 01/22/18 20:59 01/09/18 21:36 Promethazine HCl/ Codeine (Phenergan with Codeine) 5 ml Q6H PRN ORAL cough 12/26/17 16:01 01/23/18 16:00 Risperidone (RisperDAL) 1 mg BID ORAL 12/26/17 18:00 01/20/18 13:14 01/11/18 17:53 Sennosides (Senokot) 1 tab DAILY ORAL 12/27/17 09:00 01/22/18 14:59 01/11/18 08:50 Vitamin A/Vitamin D (A & D Oint) 1 applic EVERY 12 HOURS TOPIC 12/26/17 21:00 01/20/18 22:59 01/11/18 22:06 Item Value Date Time Bedside Blood Glucose 248 mg/dl H 01/12/18 0628 Bedside Blood Glucose 169 mg/dl H 01/11/18 2205 Bedside Blood Glucose 172 mg/dl H 01/11/18 1720 Bedside Blood Glucose 255 mg/dl H 01/11/18 1254 Bedside Blood Glucose 208 mg/dl H 01/11/18 0856 FEMI MCKEON Jan 12, 2018 06:45
[2018-01-12] MEDS: Ipratropium 0.02% Inh Soln 2.5ml UD HHN SCH ×3 (07:00→20:12)
[2018-01-12 08:00] VITALS: BP 98/60
[2018-01-12] MEDS: Fleet's Mineral Oil Enema RECTAL SCH (09:00)
[2018-01-12] MEDS: Heparin 5000 units/ml inj SUBQ SCH ×2 (09:00→21:00)
[2018-01-12] MEDS: Docusate 100mg cap ORAL SCH ×3 (09:23→17:14)
[2018-01-12] MEDS: Sennosides 8.6mg ORAL SCH (09:23)
[2018-01-12] MEDS: Vitamin A&D Oint 2oz Tube TOPIC SCH ×2 (09:25→21:52)
[2018-01-12] MEDS: Levemir Flexpen SUBQ SCH ×2 (09:33→21:50)
--- NOTE | 2018-01-12 11:40 | Infectious Diseases Prog Note ---
Assessment/Plan Assessment/Plan Assessment: Acute hypoxic resp failure improved COPD exacerbation- -CXR: No acute disease Afebrile, no leukocytosis Recent acute hypoxic failure and PNA 11/2015 -sp cx 12/04: E.coli (davila S), P. mirabilis (davila S) Influenza sc : Neg transaminitis improving Hx of Hep C Hep panel : A Imm ; B not immune HIV Neg hx of trach s/p removal COPD Dm2 HTN NH resident Plan: - Monitor pt off of AB Rx -12/24 SP Levaquin # 5 /5 -12/10 SP Cefepime #7 -12/06 SP Vanco #3 -Monitor CBC/BMP, temperatures -aspiration precautions Hem fup, re TCP Hep C fup and Hep B Vax as out pt Subjective Allergies: Coded Allergies: Shrimp (Unverified Allergy, Unknown, 12/04/17) Subjective comfortable Objective Vital Signs Last 24 Hour Vital Signs Date Time Temp Pulse Resp B/P (MAP) Pulse Ox O2 Delivery O2 Flow Rate FiO2 01/12/18 09:28 97 18 98 Nasal Cannula 2.0 01/12/18 09:00 93 98/60 01/12/18 08:29 98 Nasal Cannula 2.0 01/12/18 08:29 Nasal Cannula 2.0 28 01/12/18 08:00 98.2 93 17 98/60 100 98.2 01/12/18 05:25 97.5 01/12/18 04:00 97.5 97 20 91/51 100 Nasal Cannula 2.0 97.5 01/12/18 04:00 100 2.0 01/12/18 00:00 98.1 100 20 100/60 100 Room Air 98.1 01/12/18 00:00 100 Nasal Cannula 2.0 01/11/18 22:02 85 18 99 Nasal Cannula 2.0 01/11/18 21:54 106 18 97 Nasal Cannula 2.0 01/11/18 21:53 Nasal Cannula 2.0 01/11/18 21:53 97 Nasal Cannula 2.0 01/11/18 19:34 96.6 61 20 99/50 100 Room Air 96.6 01/11/18 16:00 97.7 84 18 108/64 100 97.7 01/11/18 13:37 79 18 98 Nasal Cannula 2.0 01/11/18 13:29 78 18 95 Nasal Cannula 2.0 28 01/11/18 12:00 97.7 108 19 108/70 97 97.7 Height (Feet): 5 Height (Inches): 4.00 Weight (Pounds): 146 HEENT: mucous membranes moist Respiratory/Chest: no respiratory distress Cardiovascular: regular rhythm Abdomen: soft, non tender Current Medications Medications (Trade) Dose Ordered Sig/Hansel Route PRN Reason Start Time Stop Time Status Last Admin Dose Admin Acetaminophen (Tylenol) 650 mg Q4H PRN ORAL T>100.5 12/30/17 07:31 01/19/18 15:30 01/12/18 04:26 Alprazolam (Xanax) 0.25 mg Q6H PRN ORAL For Anxiety 01/08/18 14:45 01/15/18 14:44 Amlodipine Besylate (Norvasc) 5 mg DAILY ORAL 12/27/17 09:00 01/20/18 08:59 01/11/18 08:54 Clonidine HCl (Catapres Tab) 0.1 mg Q4H PRN ORAL sbp more than 160mmHg 12/26/17 15:31 01/23/18 15:30 Dextrose (Dextrose 50%) 25 ml STAT PRN IV Blood Sugar btwn 60-69 mg/dL 12/26/17 15:33 01/25/18 15:32 01/04/18 16:45 Dextrose (Dextrose 50%) 50 ml STAT PRN IV BS less than 60mg/dl 12/26/17 15:34 01/25/18 15:33 Docusate Sodium (Colace) 100 mg THREE TIMES A DAY ORAL 12/26/17 18:00 01/22/18 09:59 01/12/18 09:23 Heparin Sodium (Porcine) (Heparin 5000 units/ml) 5,000 units EVERY 12 HOURS SUBQ 12/26/17 21:00 01/20/18 08:59 01/07/18 08:58 Insulin Aspart (NovoLOG) BEFORE MEALS AND HS SUBQ 12/26/17 16:30 01/22/18 20:59 01/12/18 05:57 Insulin Aspart (NovoLOG) 8 units NOVOTIAC SUBQ 01/10/18 11:50 01/23/18 07:29 01/12/18 06:00 Insulin Detemir (Levemir) 8 units EVERY 12 HOURS SUBQ 01/10/18 09:00 01/23/18 20:59 01/12/18 09:33 Ipratropium [place] (Atrovent) 500 mcg TIDRT HHN 01/08/18 19:00 01/13/18 18:59 01/11/18 21:53 Mineral Oil (Fleet's Mineral Oil Enema) 133 ml EVERY OTHER DAY RECTAL 12/27/17 09:00 01/22/18 09:59 01/06/18 08:48 Nitroglycerin (Ntg) 0.4 mg Q5M X 3 DOSES PRN SL Prn Chest Pain 12/26/17 15:59 01/19/18 15:58 Ondansetron HCl (Zofran) 4 mg Q6H PRN IVP Nausea & Vomiting 12/26/17 16:00 01/19/18 15:59 01/04/18 12:11 Polyethylene Glycol (Miralax) 17 gm BEDTIME ORAL 12/26/17 21:00 01/22/18 20:59 01/09/18 21:36 Promethazine HCl/ Codeine (Phenergan with Codeine) 5 ml Q6H PRN ORAL cough 12/26/17 16:01 01/23/18 16:00 Risperidone (RisperDAL) 1 mg BID ORAL 12/26/17 18:00 01/20/18 13:14 01/12/18 09:23 Sennosides (Senokot) 1 tab DAILY ORAL 12/27/17 09:00 01/22/18 14:59 01/12/18 09:23 Vitamin A/Vitamin D (A & D Oint) 1 applic EVERY 12 HOURS TOPIC 12/26/17 21:00 01/20/18 22:59 01/12/18 09:25 Steve Griffin MD Jan 12, 2018 11:40
[2018-01-12 12:03] VITALS: BP 99/62
[2018-01-12 16:00] VITALS: BP 114/75
[2018-01-12 20:00] VITALS: BP 108/65
--- NOTE | 2018-01-12 21:10 | Internal Med Progress Note ---
Subjective Physician Name Tone Fried Attending Physician Tone Fried MD Current Medications Medications (Trade) Dose Ordered Sig/Hansel Route PRN Reason Start Time Stop Time Status Last Admin Dose Admin Acetaminophen (Tylenol) 650 mg Q4H PRN ORAL T>100.5 12/30/17 07:31 01/19/18 15:30 01/12/18 04:26 Alprazolam (Xanax) 0.25 mg Q6H PRN ORAL For Anxiety 01/08/18 14:45 01/15/18 14:44 Amlodipine Besylate (Norvasc) 5 mg DAILY ORAL 12/27/17 09:00 01/20/18 08:59 01/11/18 08:54 Clonidine HCl (Catapres Tab) 0.1 mg Q4H PRN ORAL sbp more than 160mmHg 12/26/17 15:31 01/23/18 15:30 Dextrose (Dextrose 50%) 25 ml STAT PRN IV Blood Sugar btwn 60-69 mg/dL 12/26/17 15:33 01/25/18 15:32 01/04/18 16:45 Dextrose (Dextrose 50%) 50 ml STAT PRN IV BS less than 60mg/dl 12/26/17 15:34 01/25/18 15:33 Docusate Sodium (Colace) 100 mg THREE TIMES A DAY ORAL 12/26/17 18:00 01/22/18 09:59 01/12/18 17:14 Heparin Sodium (Porcine) (Heparin 5000 units/ml) 5,000 units EVERY 12 HOURS SUBQ 12/26/17 21:00 01/20/18 08:59 01/07/18 08:58 Insulin Aspart (NovoLOG) BEFORE MEALS AND HS SUBQ 12/26/17 16:30 01/22/18 20:59 01/12/18 16:54 Insulin Aspart (NovoLOG) 8 units NOVOTIAC SUBQ 01/10/18 11:50 01/23/18 07:29 01/12/18 16:55 Insulin Detemir (Levemir) 8 units EVERY 12 HOURS SUBQ 01/10/18 09:00 01/23/18 20:59 01/12/18 09:33 Ipratropium [place] (Atrovent) 500 mcg TIDRT HHN 01/08/18 19:00 01/13/18 18:59 01/12/18 20:12 Mineral Oil (Fleet's Mineral Oil Enema) 133 ml EVERY OTHER DAY RECTAL 12/27/17 09:00 01/22/18 09:59 01/06/18 08:48 Nitroglycerin (Ntg) 0.4 mg Q5M X 3 DOSES PRN SL Prn Chest Pain 12/26/17 15:59 01/19/18 15:58 Ondansetron HCl (Zofran) 4 mg Q6H PRN IVP Nausea & Vomiting 12/26/17 16:00 01/19/18 15:59 01/04/18 12:11 Polyethylene Glycol (Miralax) 17 gm BEDTIME ORAL 12/26/17 21:00 01/22/18 20:59 01/09/18 21:36 Promethazine HCl/ Codeine (Phenergan with Codeine) 5 ml Q6H PRN ORAL cough 12/26/17 16:01 01/23/18 16:00 Risperidone (RisperDAL) 1 mg BID ORAL 12/26/17 18:00 01/20/18 13:14 01/12/18 17:14 Sennosides (Senokot) 1 tab DAILY ORAL 12/27/17 09:00 01/22/18 14:59 01/12/18 09:23 Vitamin A/Vitamin D (A & D Oint) 1 applic EVERY 12 HOURS TOPIC 12/26/17 21:00 01/20/18 22:59 01/12/18 09:25 Allergies: Coded Allergies: Shrimp (Unverified Allergy, Unknown, 12/04/17) Subjective awake, alert, responsive, on O2 via NC Objective Last Vital Signs Date Time Temp Pulse Resp B/P (MAP) Pulse Ox O2 Delivery O2 Flow Rate FiO2 01/12/18 20:32 91 19 100 Nasal Cannula 2.0 28 01/12/18 16:00 97.7 114/75 97.7 Intake and Output 01/11/18 01/12/18 19:00 07:00 Intake Total 800 ml 300 ml Balance 800 ml 300 ml Intake Oral 800 ml 300 ml # Voids 4 2 Objective General: No acute distress, awake and alert HEENT: NCAT, sclera anicteric, PERRL, EOMI. Neck: Supple, no significant jugular venous distention, Old Trach scar. Lungs: Fair inspiratory effort, decrease air at bases, no Wheeze or Rales. Heart: Regular rate and rhythm, normal S1/S2, no murmur Abdomen: soft, nontender, nondistended. Normoactive bowel sounds. / Rectal: Refused and deferred. Extremities: No Cyanosis , clubbing or edema. Muscle atrophy LE's Neuro: A&O x 3, Able to move all extremities Skin: warm, no rashes Assessment/Plan Assessment/Plan Acute hypoxic respiratory failure Acute COPD exacerbation- transaminitis improving Hx of Hep C hx of trach s/p removal DM Type 2 HTN Plan: AbX: monitor off O2 Via NC Neb Tx F/U with Dr. Watts recommendation DC Planning for hospice. Tone Fried MD Jan 12, 2018 21:10
[2018-01-12] MEDS: Miralax 17gm pkt ORAL SCH (21:46)
--- NOTE | 2018-01-12 22:00 | General Progress Note ---
Assessment/Plan Assessment/Plan #. Thrombocytopenia, secondary to hepatitis C --> Hep A and C antibody test (+) --> Monitor for improvement. Transfuse if platelets <20k #. Leukopenia, likely secondary to hepatitis C, currently improved. --> No leukocytosis is noted. The patient has been afebrile. --> Resolved at this time. #. Anemia due to underlying chronic disease. --> Continue to closely monitor. --> Blood transfusion not required unless symptomatic or hgb <7 --> Reviewed anemia workup. Iron 110, TIBC 230, Ferritin 90, B12 821, Folate 6.6 , TSH 1.4 #. Acute on hypoxic respiratory failure, status post tracheostomy, improved. #. Hepatitis C. Management as an outpatient. --> Appreciate Infectious Disease service evaluation. #. Hypertension. Systolic blood pressure goal less than 140. --> Improved. #. COPD. DC Planning. Subjective Date patient seen: Jan 11, 2018 Constitutional: Denies: no symptoms, chills, diaphoresis, fever, malaise, weakness, other HEENT: Denies: no symptoms, eye pain, blurred vision, tearing, double vision, ear pain, ear discharge, nose pain, nose congestion, throat pain, throat swelling, mouth pain, mouth swelling, other Cardiovascular: Denies: no symptoms, chest pain, edema, irregular heart rate, lightheadedness, palpitations, syncope, other Respiratory: Denies: no symptoms, cough, orthopnea, shortness of breath, SOB with excertion, SOB at rest, sputum, stridor, wheezing, other Genitourinary: Denies: no symptoms, burning, discharge, frequency, flank pain, hematuria, incontinence, pain, urgency, other Neurologic/Psychiatric: Denies: no symptoms, anxiety, depressed, emotional problems, headache, numbness, paresthesia, pre-existing deficit, seizure, tingling, tremors, weakness, other Allergies: Coded Allergies: Shrimp (Unverified Allergy, Unknown, 12/04/17) Subjective Some sob. H/H stable. No fever. Objective Last 24 Hour Vital Signs Date Time Temp Pulse Resp B/P (MAP) Pulse Ox O2 Delivery O2 Flow Rate FiO2 01/12/18 20:32 91 19 100 Nasal Cannula 2.0 28 01/12/18 20:11 91 19 100 Nasal Cannula 2.0 28 01/12/18 20:11 28 01/12/18 20:10 Nasal Cannula 2.0 28 01/12/18 20:10 100 Nasal Cannula 2.0 28 01/12/18 20:00 98.2 59 19 108/65 99 98.2 01/12/18 16:00 Nasal Cannula 2.0 01/12/18 16:00 97.7 91 19 114/75 100 97.7 01/12/18 13:30 81 18 98 Nasal Cannula 2.0 28 01/12/18 13:21 90 18 98 Nasal Cannula 2.0 28 01/12/18 12:03 97.9 99 19 99/62 100 Nasal Cannula 2.0 97.9 01/12/18 09:28 Nasal Cannula 01/12/18 09:28 97 18 98 Nasal Cannula 2.0 01/12/18 09:00 93 98/60 01/12/18 08:29 98 Nasal Cannula 2.0 01/12/18 08:29 Nasal Cannula 2.0 01/12/18 08:00 98.2 93 17 98/60 100 98.2 01/12/18 05:25 97.5 01/12/18 04:00 97.5 97 20 91/51 100 Nasal Cannula 2.0 97.5 01/12/18 04:00 100 2.0 01/12/18 00:00 98.1 100 20 100/60 100 Room Air 98.1 01/12/18 00:00 100 Nasal Cannula 2.0 01/11/18 22:02 85 18 99 Nasal Cannula 2.0 28 Intake and Output 01/11/18 01/12/18 19:00 07:00 Intake Total 800 ml 300 ml Balance 800 ml 300 ml Intake Oral 800 ml 300 ml # Voids 4 2 Height (Feet): 5 Height (Inches): 4.00 Weight (Pounds): 146 General Appearance: no apparent distress Respiratory/Chest: decreased breath sounds Abdomen: non tender, soft Edema: trace edema Anuj Alfaro MD Jan 12, 2018 22:00
--- NOTE | 2018-01-12 22:35 | Pulmonology Progress Note ---
Assessment/Plan Problems: (1) Acute and chronic respiratory failure (2) COPD (chronic obstructive pulmonary disease) (3) Hepatitis C Assessment/Plan doing the same all reviewed no new events no new complains respiratory treatment dc steroids BP controlled tachycardia secondary to agitation. dc planning in progress pts daughter signed for hospice care, awaiting placement Subjective ROS Limited/Unobtainable: No Allergies: Coded Allergies: Shrimp (Unverified Allergy, Unknown, 12/04/17) Objective Last 24 Hour Vital Signs Date Time Temp Pulse Resp B/P (MAP) Pulse Ox O2 Delivery O2 Flow Rate FiO2 01/12/18 20:32 91 19 100 Nasal Cannula 2.0 28 01/12/18 20:11 91 19 100 Nasal Cannula 2.0 01/12/18 20:11 01/12/18 20:10 Nasal Cannula 2.0 01/12/18 20:10 100 Nasal Cannula 2.0 01/12/18 20:00 98.2 59 19 108/65 99 98.2 01/12/18 16:00 Nasal Cannula 2.0 01/12/18 16:00 97.7 91 19 114/75 100 97.7 01/12/18 13:30 81 18 98 Nasal Cannula 2.0 01/12/18 13:21 90 18 98 Nasal Cannula 2.0 01/12/18 12:03 97.9 99 19 99/62 100 Nasal Cannula 2.0 97.9 01/12/18 09:28 Nasal Cannula 01/12/18 09:28 97 18 98 Nasal Cannula 2.0 01/12/18 09:00 93 98/60 01/12/18 08:29 98 Nasal Cannula 2.0 01/12/18 08:29 Nasal Cannula 2.0 01/12/18 08:00 98.2 93 17 98/60 100 98.2 01/12/18 05:25 97.5 01/12/18 04:00 97.5 97 20 91/51 100 Nasal Cannula 2.0 97.5 01/12/18 04:00 100 2.0 01/12/18 00:00 98.1 100 20 100/60 100 Room Air 98.1 01/12/18 00:00 100 Nasal Cannula 2.0 Intake and Output 01/11/18 01/12/18 19:00 07:00 Intake Total 800 ml 300 ml Balance 800 ml 300 ml Intake Oral 800 ml 300 ml # Voids 4 2 Objective General Appearance: cachetic HEENT: normocephalic Respiratory/Chest: chest wall non-tender, lungs clear Breasts: no masses Cardiovascular: normal peripheral pulses, normal rate Abdomen: normal bowel sounds, soft, non tender Extremities: no cyanosis, no clubbing Neurologic/Psychiatric: adolescent counselor II-XII grossly normal, no motor/sensory deficits Lymphatic: no neck adenopathy Current Medications Medications (Trade) Dose Ordered Sig/Hansel Route PRN Reason Start Time Stop Time Status Last Admin Dose Admin Acetaminophen (Tylenol) 650 mg Q4H PRN ORAL T>100.5 12/30/17 07:31 01/19/18 15:30 01/12/18 04:26 Alprazolam (Xanax) 0.25 mg Q6H PRN ORAL For Anxiety 01/08/18 14:45 01/15/18 14:44 Amlodipine Besylate (Norvasc) 5 mg DAILY ORAL 12/27/17 09:00 01/20/18 08:59 01/11/18 08:54 Clonidine HCl (Catapres Tab) 0.1 mg Q4H PRN ORAL sbp more than 160mmHg 12/26/17 15:31 01/23/18 15:30 Dextrose (Dextrose 50%) 25 ml STAT PRN IV Blood Sugar btwn 60-69 mg/dL 12/26/17 15:33 01/25/18 15:32 01/04/18 16:45 Dextrose (Dextrose 50%) 50 ml STAT PRN IV BS less than 60mg/dl 12/26/17 15:34 01/25/18 15:33 Docusate Sodium (Colace) 100 mg THREE TIMES A DAY ORAL 12/26/17 18:00 01/22/18 09:59 01/12/18 17:14 Heparin Sodium (Porcine) (Heparin 5000 units/ml) 5,000 units EVERY 12 HOURS SUBQ 12/26/17 21:00 01/20/18 08:59 01/07/18 08:58 Insulin Aspart (NovoLOG) BEFORE MEALS AND HS SUBQ 12/26/17 16:30 01/22/18 20:59 01/12/18 21:50 Insulin Aspart (NovoLOG) 8 units NOVOTIAC SUBQ 01/10/18 11:50 01/23/18 07:29 01/12/18 16:55 Insulin Detemir (Levemir) 8 units EVERY 12 HOURS SUBQ 01/10/18 09:00 01/23/18 20:59 01/12/18 21:50 Ipratropium [place] (Atrovent) 500 mcg TIDRT HHN 01/08/18 19:00 01/13/18 18:59 01/12/18 20:12 Mineral Oil (Fleet's Mineral Oil Enema) 133 ml EVERY OTHER DAY RECTAL 12/27/17 09:00 01/22/18 09:59 01/06/18 08:48 Nitroglycerin (Ntg) 0.4 mg Q5M X 3 DOSES PRN SL Prn Chest Pain 12/26/17 15:59 01/19/18 15:58 Ondansetron HCl (Zofran) 4 mg Q6H PRN IVP Nausea & Vomiting 12/26/17 16:00 01/19/18 15:59 01/04/18 12:11 Polyethylene Glycol (Miralax) 17 gm BEDTIME ORAL 12/26/17 21:00 01/22/18 20:59 01/12/18 21:46 Promethazine HCl/ Codeine (Phenergan with Codeine) 5 ml Q6H PRN ORAL cough 12/26/17 16:01 01/23/18 16:00 Risperidone (RisperDAL) 1 mg BID ORAL 12/26/17 18:00 01/20/18 13:14 01/12/18 17:14 Sennosides (Senokot) 1 tab DAILY ORAL 12/27/17 09:00 01/22/18 14:59 01/12/18 09:23 Vitamin A/Vitamin D (A & D Oint) 1 applic EVERY 12 HOURS TOPIC 12/26/17 21:00 01/20/18 22:59 01/12/18 21:52 Leni Watts MD Jan 12, 2018 22:35
[2018-01-13] VITALS: BP 105/73
[2018-01-13 04:00] VITALS: BP 113/70
[2018-01-13] MEDS: NovoLOG Insulin Flexpen SUBQ SCH ×7 (06:39→20:28)
--- NOTE | 2018-01-13 06:47 | General Progress Note ---
Assessment/Plan Problem List: (1) Diabetes mellitus out of control ICD Codes: E11.65 - Type 2 diabetes mellitus with hyperglycemia SNOMED: 22542158, [id number] (2) COPD (chronic obstructive pulmonary disease) ICD Codes: J44.9 - Chronic obstructive pulmonary disease, unspecified SNOMED: 09527093 (3) Acute and chronic respiratory failure ICD Codes: J96.20 - Acute and chronic respiratory failure, unspecified whether with hypoxia or hypercapnia SNOMED: 07242790 Assessment/Plan increase Levemir to 12 units bid continue Novolog 8 units ac tid continue NISS Subjective Allergies: Coded Allergies: Shrimp (Unverified Allergy, Unknown, 12/04/17) Subjective events noted glucose values mildly elevated Objective Last 24 Hour Vital Signs Date Time Temp Pulse Resp B/P (MAP) Pulse Ox O2 Delivery O2 Flow Rate FiO2 01/13/18 04:00 99.1 104 20 113/70 99 Room Air 99.1 01/13/18 00:00 98.1 91 18 105/73 100 Room Air 98.1 01/12/18 20:32 91 19 100 Nasal Cannula 2.0 28 01/12/18 20:11 91 19 100 Nasal Cannula 2.0 28 01/12/18 20:11 28 01/12/18 20:10 Nasal Cannula 2.0 28 01/12/18 20:10 100 Nasal Cannula 2.0 28 01/12/18 20:00 98.2 59 19 108/65 99 98.2 01/12/18 16:00 Nasal Cannula 2.0 01/12/18 16:00 97.7 91 19 114/75 100 97.7 01/12/18 13:30 81 18 98 Nasal Cannula 2.0 28 01/12/18 13:21 90 18 98 Nasal Cannula 2.0 28 01/12/18 12:03 97.9 99 19 99/62 100 Nasal Cannula 2.0 97.9 01/12/18 09:28 Nasal Cannula 01/12/18 09:28 97 18 98 Nasal Cannula 2.0 28 01/12/18 09:00 93 98/60 01/12/18 08:29 98 Nasal Cannula 2.0 28 01/12/18 08:29 Nasal Cannula 2.0 28 01/12/18 08:00 98.2 93 17 98/60 100 98.2 Intake and Output 01/12/18 01/13/18 19:00 07:00 Intake Total 850 ml Balance 850 ml Intake Oral 850 ml # Voids 6 3 # Bowel Movements 2 Height (Feet): 5 Height (Inches): 4.00 Weight (Pounds): 146 General Appearance: no apparent distress Neck: normal alignment Cardiovascular: normal rate Respiratory/Chest: lungs clear Abdomen: normal bowel sounds Pelvis: normal external exam Objective Current Medications Medications (Trade) Dose Ordered Sig/Hansel Route PRN Reason Start Time Stop Time Status Last Admin Dose Admin Acetaminophen (Tylenol) 650 mg Q4H PRN ORAL T>100.5 12/30/17 07:31 01/19/18 15:30 01/12/18 04:26 Alprazolam (Xanax) 0.25 mg Q6H PRN ORAL For Anxiety 01/08/18 14:45 01/15/18 14:44 Amlodipine Besylate (Norvasc) 5 mg DAILY ORAL 12/27/17 09:00 01/20/18 08:59 01/11/18 08:54 Clonidine HCl (Catapres Tab) 0.1 mg Q4H PRN ORAL sbp more than 160mmHg 12/26/17 15:31 01/23/18 15:30 Dextrose (Dextrose 50%) 25 ml STAT PRN IV Blood Sugar btwn 60-69 mg/dL 12/26/17 15:33 01/25/18 15:32 01/04/18 16:45 Dextrose (Dextrose 50%) 50 ml STAT PRN IV BS less than 60mg/dl 12/26/17 15:34 01/25/18 15:33 Docusate Sodium (Colace) 100 mg THREE TIMES A DAY ORAL 12/26/17 18:00 01/22/18 09:59 01/12/18 17:14 Heparin Sodium (Porcine) (Heparin 5000 units/ml) 5,000 units EVERY 12 HOURS SUBQ 12/26/17 21:00 01/20/18 08:59 01/07/18 08:58 Insulin Aspart (NovoLOG) BEFORE MEALS AND HS SUBQ 12/26/17 16:30 01/22/18 20:59 01/13/18 06:39 Insulin Aspart (NovoLOG) 8 units NOVOTIAC SUBQ 01/10/18 11:50 01/23/18 07:29 01/13/18 06:40 Insulin Detemir (Levemir) 8 units EVERY 12 HOURS SUBQ 01/10/18 09:00 01/23/18 20:59 01/12/18 21:50 Ipratropium [place] (Atrovent) 500 mcg TIDRT HHN 01/08/18 19:00 01/13/18 18:59 01/12/18 20:12 Mineral Oil (Fleet's Mineral Oil Enema) 133 ml EVERY OTHER DAY RECTAL 12/27/17 09:00 01/22/18 09:59 01/06/18 08:48 Nitroglycerin (Ntg) 0.4 mg Q5M X 3 DOSES PRN SL Prn Chest Pain 12/26/17 15:59 01/19/18 15:58 Ondansetron HCl (Zofran) 4 mg Q6H PRN IVP Nausea & Vomiting 12/26/17 16:00 01/19/18 15:59 01/04/18 12:11 Polyethylene Glycol (Miralax) 17 gm BEDTIME ORAL 12/26/17 21:00 01/22/18 20:59 01/12/18 21:46 Promethazine HCl/ Codeine (Phenergan with Codeine) 5 ml Q6H PRN ORAL cough 12/26/17 16:01 01/23/18 16:00 Risperidone (RisperDAL) 1 mg BID ORAL 12/26/17 18:00 01/20/18 13:14 01/12/18 17:14 Sennosides (Senokot) 1 tab DAILY ORAL 12/27/17 09:00 01/22/18 14:59 01/12/18 09:23 Vitamin A/Vitamin D (A & D Oint) 1 applic EVERY 12 HOURS TOPIC 12/26/17 21:00 01/20/18 22:59 01/12/18 21:52 Item Value Date Time Bedside Blood Glucose 276 mg/dl H 01/13/18 0640 Bedside Blood Glucose 227 mg/dl H 01/12/18 2150 Bedside Blood Glucose 147 mg/dl H 01/12/18 1655 Bedside Blood Glucose 339 mg/dl H 01/12/18 1240 Bedside Blood Glucose 248 mg/dl H 01/12/18 0933 FEMI MCKEON Jan 13, 2018 06:47
[2018-01-13 08:00] VITALS: BP 105/64
[2018-01-13] MEDS: Heparin 5000 units/ml inj SUBQ SCH ×2 (08:57→20:26)
[2018-01-13] MEDS: Docusate 100mg cap ORAL SCH ×3 (08:59→17:10)
[2018-01-13] MEDS: Sennosides 8.6mg ORAL SCH (08:59)
[2018-01-13] MEDS: Vitamin A&D Oint 2oz Tube TOPIC SCH ×2 (09:01→20:34)
[2018-01-13] MEDS: Ipratropium 0.02% Inh Soln 2.5ml UD HHN SCH ×2 (09:03→13:18)
--- NOTE | 2018-01-13 10:43 | Internal Med Progress Note ---
Subjective Physician Name Tone Fried Attending Physician Tone Fried MD Current Medications Medications (Trade) Dose Ordered Sig/Hansel Route PRN Reason Start Time Stop Time Status Last Admin Dose Admin Acetaminophen (Tylenol) 650 mg Q4H PRN ORAL T>100.5 12/30/17 07:31 01/19/18 15:30 01/12/18 04:26 Alprazolam (Xanax) 0.25 mg Q6H PRN ORAL For Anxiety 01/08/18 14:45 01/15/18 14:44 Amlodipine Besylate (Norvasc) 5 mg DAILY ORAL 12/27/17 09:00 01/20/18 08:59 01/13/18 08:59 Clonidine HCl (Catapres Tab) 0.1 mg Q4H PRN ORAL sbp more than 160mmHg 12/26/17 15:31 01/23/18 15:30 Dextrose (Dextrose 50%) 25 ml STAT PRN IV Blood Sugar btwn 60-69 mg/dL 12/26/17 15:33 01/25/18 15:32 01/04/18 16:45 Dextrose (Dextrose 50%) 50 ml STAT PRN IV BS less than 60mg/dl 12/26/17 15:34 01/25/18 15:33 Docusate Sodium (Colace) 100 mg THREE TIMES A DAY ORAL 12/26/17 18:00 01/22/18 09:59 01/13/18 08:59 Heparin Sodium (Porcine) (Heparin 5000 units/ml) 5,000 units EVERY 12 HOURS SUBQ 12/26/17 21:00 01/20/18 08:59 01/07/18 08:58 Insulin Aspart (NovoLOG) BEFORE MEALS AND HS SUBQ 12/26/17 16:30 01/22/18 20:59 01/13/18 06:39 Insulin Aspart (NovoLOG) 8 units NOVOTIAC SUBQ 01/10/18 11:50 01/23/18 07:29 01/13/18 06:40 Insulin Detemir (Levemir) 12 units EVERY 12 HOURS SUBQ 01/13/18 09:00 01/23/18 20:59 Ipratropium [place] (Atrovent) 500 mcg TIDRT HHN 01/08/18 19:00 01/13/18 18:59 01/13/18 09:03 Mineral Oil (Fleet's Mineral Oil Enema) 133 ml EVERY OTHER DAY RECTAL 12/27/17 09:00 01/22/18 09:59 01/06/18 08:48 Nitroglycerin (Ntg) 0.4 mg Q5M X 3 DOSES PRN SL Prn Chest Pain 12/26/17 15:59 01/19/18 15:58 Ondansetron HCl (Zofran) 4 mg Q6H PRN IVP Nausea & Vomiting 12/26/17 16:00 01/19/18 15:59 01/04/18 12:11 Polyethylene Glycol (Miralax) 17 gm BEDTIME ORAL 12/26/17 21:00 01/22/18 20:59 01/12/18 21:46 Promethazine HCl/ Codeine (Phenergan with Codeine) 5 ml Q6H PRN ORAL cough 12/26/17 16:01 01/23/18 16:00 Risperidone (RisperDAL) 1 mg BID ORAL 12/26/17 18:00 01/20/18 13:14 01/13/18 08:59 Sennosides (Senokot) 1 tab DAILY ORAL 12/27/17 09:00 01/22/18 14:59 01/13/18 08:59 Vitamin A/Vitamin D (A & D Oint) 1 applic EVERY 12 HOURS TOPIC 12/26/17 21:00 01/20/18 22:59 01/13/18 09:01 Allergies: Coded Allergies: Shrimp (Unverified Allergy, Unknown, 12/04/17) Subjective awake, alert, responsive, on O2 via NC Objective Last Vital Signs Date Time Temp Pulse Resp B/P (MAP) Pulse Ox O2 Delivery O2 Flow Rate FiO2 01/13/18 09:13 69 20 100 Nasal Cannula 2.0 28 01/13/18 08:59 105/64 01/13/18 08:00 98.6 98.6 Intake and Output 01/12/18 01/13/18 19:00 07:00 Intake Total 850 ml Balance 850 ml Intake Oral 850 ml # Voids 6 3 # Bowel Movements 2 Objective General: No acute distress, awake and alert HEENT: NCAT, sclera anicteric, PERRL, EOMI. Neck: Supple, no significant jugular venous distention, Old Trach scar. Lungs: Fair inspiratory effort, decrease air at bases, no Wheeze or Rales. Heart: Regular rate and rhythm, normal S1/S2, no murmur Abdomen: soft, nontender, nondistended. Normoactive bowel sounds. / Rectal: Refused and deferred. Extremities: No Cyanosis , clubbing or edema. Muscle atrophy LE's Neuro: A&O x 3, Able to move all extremities Skin: warm, no rashes Assessment/Plan Assessment/Plan Acute hypoxic respiratory failure Acute COPD exacerbation- transaminitis improving Hx of Hep C hx of trach s/p removal DM Type 2 HTN Plan: AbX: monitor off O2 Via NC Neb Tx F/U with Dr. Watts recommendation DC Planning , waiting for placement Tone Fried MD Jan 13, 2018 10:43
[2018-01-13] MEDS: Levemir Flexpen SUBQ SCH ×2 (10:44→20:28)
[2018-01-13 12:00] VITALS: BP 110/62
[2018-01-13 16:00] VITALS: BP 113/59
--- NOTE | 2018-01-13 17:25 | Pulmonology Progress Note ---
Assessment/Plan Problems: (1) Acute and chronic respiratory failure (2) COPD (chronic obstructive pulmonary disease) (3) Hepatitis C Assessment/Plan comfortable all reviewed no new events no new complains respiratory treatment BP controlled tachycardia secondary to agitation. dc planning in progress pts daughter signed for hospice care, awaiting placement Subjective ROS Limited/Unobtainable: No Constitutional: Reports: no symptoms HEENT: Repors: no symptoms Respiratory: Reports: no symptoms Allergies: Coded Allergies: Shrimp (Unverified Allergy, Unknown, 12/04/17) Objective Last 24 Hour Vital Signs Date Time Temp Pulse Resp B/P (MAP) Pulse Ox O2 Delivery O2 Flow Rate FiO2 01/13/18 16:00 97.5 86 19 113/59 100 97.5 01/13/18 13:28 115 20 100 Nasal Cannula 2.0 01/13/18 13:18 113 20 100 Nasal Cannula 2.0 28 01/13/18 12:00 97.6 97 18 110/62 100 97.6 01/13/18 09:13 69 20 100 Nasal Cannula 2.0 01/13/18 09:03 68 18 100 Nasal Cannula 2.0 28 01/13/18 09:03 100 Nasal Cannula 2.0 28 01/13/18 09:03 Nasal Cannula 2.0 28 01/13/18 08:59 104 105/64 01/13/18 08:00 98.6 104 20 105/64 100 98.6 01/13/18 04:00 99.1 104 20 113/70 99 Room Air 99.1 01/13/18 00:00 98.1 91 18 105/73 100 Room Air 98.1 01/12/18 20:32 91 19 100 Nasal Cannula 2.0 28 01/12/18 20:11 91 19 100 Nasal Cannula 2.0 28 01/12/18 20:11 28 01/12/18 20:10 Nasal Cannula 2.0 28 01/12/18 20:10 100 Nasal Cannula 2.0 28 01/12/18 20:00 98.2 59 19 108/65 99 98.2 Intake and Output 01/12/18 01/13/18 19:00 07:00 Intake Total 850 ml Balance 850 ml Intake Oral 850 ml # Voids 6 3 # Bowel Movements 2 Objective General Appearance: cachetic HEENT: normocephalic Respiratory/Chest: chest wall non-tender, lungs clear Breasts: no masses Cardiovascular: normal peripheral pulses, normal rate Abdomen: normal bowel sounds, soft, non tender Extremities: no cyanosis, no clubbing 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, no motor/sensory deficits Lymphatic: no neck adenopathy Current Medications Medications (Trade) Dose Ordered Sig/Hansel Route PRN Reason Start Time Stop Time Status Last Admin Dose Admin Acetaminophen (Tylenol) 650 mg Q4H PRN ORAL T>100.5 12/30/17 07:31 01/19/18 15:30 01/12/18 04:26 Alprazolam (Xanax) 0.25 mg Q6H PRN ORAL For Anxiety 01/08/18 14:45 01/15/18 14:44 Amlodipine Besylate (Norvasc) 5 mg DAILY ORAL 12/27/17 09:00 01/20/18 08:59 01/13/18 08:59 Clonidine HCl (Catapres Tab) 0.1 mg Q4H PRN ORAL sbp more than 160mmHg 12/26/17 15:31 01/23/18 15:30 Dextrose (Dextrose 50%) 25 ml STAT PRN IV Blood Sugar btwn 60-69 mg/dL 12/26/17 15:33 01/25/18 15:32 01/04/18 16:45 Dextrose (Dextrose 50%) 50 ml STAT PRN IV BS less than 60mg/dl 12/26/17 15:34 01/25/18 15:33 Docusate Sodium (Colace) 100 mg THREE TIMES A DAY ORAL 12/26/17 18:00 01/22/18 09:59 01/13/18 17:10 Heparin Sodium (Porcine) (Heparin 5000 units/ml) 5,000 units EVERY 12 HOURS SUBQ 12/26/17 21:00 01/20/18 08:59 01/07/18 08:58 Insulin Aspart (NovoLOG) BEFORE MEALS AND HS SUBQ 12/26/17 16:30 01/22/18 20:59 01/13/18 17:07 Insulin Aspart (NovoLOG) 8 units NOVOTIAC SUBQ 01/10/18 11:50 01/23/18 07:29 01/13/18 17:09 Insulin Detemir (Levemir) 12 units EVERY 12 HOURS SUBQ 01/13/18 09:00 01/23/18 20:59 01/13/18 10:44 Ipratropium [place] (Atrovent) 500 mcg TIDRT HHN 01/08/18 19:00 01/13/18 18:59 01/13/18 13:18 Mineral Oil (Fleet's Mineral Oil Enema) 133 ml EVERY OTHER DAY RECTAL 12/27/17 09:00 01/22/18 09:59 01/06/18 08:48 Nitroglycerin (Ntg) 0.4 mg Q5M X 3 DOSES PRN SL Prn Chest Pain 12/26/17 15:59 01/19/18 15:58 Ondansetron HCl (Zofran) 4 mg Q6H PRN IVP Nausea & Vomiting 12/26/17 16:00 01/19/18 15:59 01/04/18 12:11 Polyethylene Glycol (Miralax) 17 gm BEDTIME ORAL 12/26/17 21:00 01/22/18 20:59 01/12/18 21:46 Promethazine HCl/ Codeine (Phenergan with Codeine) 5 ml Q6H PRN ORAL cough 12/26/17 16:01 01/23/18 16:00 Risperidone (RisperDAL) 1 mg BID ORAL 12/26/17 18:00 01/20/18 13:14 01/13/18 17:10 Sennosides (Senokot) 1 tab DAILY ORAL 12/27/17 09:00 01/22/18 14:59 01/13/18 08:59 Vitamin A/Vitamin D (A & D Oint) 1 applic EVERY 12 HOURS TOPIC 12/26/17 21:00 01/20/18 22:59 01/13/18 09:01 Leni Watts MD Jan 13, 2018 17:25
[2018-01-13 20:00] VITALS: BP 116/67
[2018-01-13] MEDS: Miralax 17gm pkt ORAL SCH ×2 (20:26→20:48)
--- NOTE | 2018-01-13 23:14 | General Progress Note ---
Assessment/Plan Assessment/Plan #. Thrombocytopenia, secondary to hepatitis C --> Hep A and C antibody test (+) --> Monitor for improvement. Transfuse if platelets <20k #. Leukopenia, likely secondary to hepatitis C, currently improved. --> No leukocytosis is noted. The patient has been afebrile. --> Resolved at this time. #. Anemia due to underlying chronic disease. --> Continue to closely monitor. --> Blood transfusion not required unless symptomatic or hgb <7 --> Reviewed anemia workup. Iron 110, TIBC 230, Ferritin 90, B12 821, Folate 6.6 , TSH 1.4 #. Acute on hypoxic respiratory failure, status post tracheostomy, improved. #. Hepatitis C. Management as an outpatient. --> Appreciate Infectious Disease service evaluation. #. Hypertension. Systolic blood pressure goal less than 140. --> Improved. #. COPD. DC Planning. Subjective Date patient seen: Jan 12, 2018 Constitutional: Denies: no symptoms, chills, diaphoresis, fever, malaise, weakness, other HEENT: Denies: no symptoms, eye pain, blurred vision, tearing, double vision, ear pain, ear discharge, nose pain, nose congestion, throat pain, throat swelling, mouth pain, mouth swelling, other Cardiovascular: Denies: no symptoms, chest pain, edema, irregular heart rate, lightheadedness, palpitations, syncope, other Respiratory: Denies: no symptoms, cough, orthopnea, shortness of breath, SOB with excertion, SOB at rest, sputum, stridor, wheezing, other Gastrointestinal/Abdominal: Denies: no symptoms, abdomen distended, abdominal pain, black stools, tarry stools, blood in stool, constipated, diarrhea, difficulty swallowing, nausea, poor appetite, poor fluid intake, rectal bleeding , vomiting, other Genitourinary: Denies: no symptoms, burning, discharge, frequency, flank pain, hematuria, incontinence, pain, urgency, other Neurologic/Psychiatric: Denies: no symptoms, anxiety, depressed, emotional problems, headache, numbness, paresthesia, pre-existing deficit, seizure, tingling, tremors, weakness, other Hematologic/Lymphatic: Reports: anemia Allergies: Coded Allergies: Shrimp (Unverified Allergy, Unknown, 12/04/17) Subjective Some sob. H/H stable. Pending placement. Objective Last 24 Hour Vital Signs Date Time Temp Pulse Resp B/P (MAP) Pulse Ox O2 Delivery O2 Flow Rate FiO2 01/13/18 20:00 98.2 113 17 116/67 99 98.2 01/13/18 19:49 Nasal Cannula 2.0 28 01/13/18 19:49 98 Nasal Cannula 2.0 28 01/13/18 16:00 97.5 86 19 113/59 100 97.5 01/13/18 13:28 115 20 100 Nasal Cannula 2.0 28 01/13/18 13:18 113 20 100 Nasal Cannula 2.0 01/13/18 12:00 97.6 97 18 110/62 100 97.6 01/13/18 09:13 69 20 100 Nasal Cannula 2.0 01/13/18 09:03 68 18 100 Nasal Cannula 2.0 28 01/13/18 09:03 100 Nasal Cannula 2.0 28 01/13/18 09:03 Nasal Cannula 2.0 28 01/13/18 08:59 104 105/64 01/13/18 08:00 98.6 104 20 105/64 100 98.6 01/13/18 04:00 99.1 104 20 113/70 99 Room Air 99.1 01/13/18 00:00 98.1 91 18 105/73 100 Room Air 98.1 Intake and Output 01/12/18 01/13/18 19:00 07:00 Intake Total 850 ml Balance 850 ml Intake Oral 850 ml # Voids 6 3 # Bowel Movements 2 Height (Feet): 5 Height (Inches): 4.00 Weight (Pounds): 146 General Appearance: cachetic EENT: normal ENT inspection Neck: normal alignment Cardiovascular: normal peripheral pulses, normal rate Abdomen: normal bowel sounds Extremities: non-tender Anuj Alfaro MD Jan 13, 2018 23:14
[2018-01-14] VITALS (7 sets, daily range): BP systolic 116–126; BP diastolic 61–71
[2018-01-14] MEDS: NovoLOG Insulin Flexpen SUBQ SCH ×7 (06:36→21:25)
--- NOTE | 2018-01-14 07:02 | General Progress Note ---
Assessment/Plan Problem List: (1) Diabetes mellitus out of control ICD Codes: E11.65 - Type 2 diabetes mellitus with hyperglycemia SNOMED: 36010188, 905247118 (2) COPD (chronic obstructive pulmonary disease) ICD Codes: J44.9 - Chronic obstructive pulmonary disease, unspecified SNOMED: 64174956 (3) Acute and chronic respiratory failure ICD Codes: J96.20 - Acute and chronic respiratory failure, unspecified whether with hypoxia or hypercapnia SNOMED: 12197214 Assessment/Plan increase Levemir to 15 units bid increase Novolog to 10 units ac tid continue NISS Subjective Allergies: Coded Allergies: Shrimp (Unverified Allergy, Unknown, 12/04/17) All Systems: reviewed and negative except above Subjective events noted glucose values remained elevated Objective Last 24 Hour Vital Signs Date Time Temp Pulse Resp B/P (MAP) Pulse Ox O2 Delivery O2 Flow Rate FiO2 01/14/18 04:12 97.8 105 16 116/65 100 97.8 01/14/18 00:00 98.0 102 16 120/71 99 98.0 01/13/18 20:00 98.2 113 17 116/67 99 98.2 01/13/18 19:49 Nasal Cannula 2.0 28 01/13/18 19:49 98 Nasal Cannula 2.0 28 01/13/18 16:00 97.5 86 19 113/59 100 97.5 01/13/18 13:28 115 20 100 Nasal Cannula 2.0 28 01/13/18 13:18 113 20 100 Nasal Cannula 2.0 28 01/13/18 12:00 97.6 97 18 110/62 100 97.6 01/13/18 09:13 69 20 100 Nasal Cannula 2.0 28 01/13/18 09:03 68 18 100 Nasal Cannula 2.0 28 01/13/18 09:03 100 Nasal Cannula 2.0 28 01/13/18 09:03 Nasal Cannula 2.0 28 01/13/18 08:59 104 105/64 01/13/18 08:00 98.6 104 20 105/64 100 98.6 Intake and Output 01/13/18 01/14/18 19:00 07:00 Intake Total 850 ml Balance 850 ml Intake Oral 850 ml # Voids 3 3 # Bowel Movements 1 1 Height (Feet): 5 Height (Inches): 4.00 Weight (Pounds): 148 General Appearance: no apparent distress Neck: normal alignment Cardiovascular: normal rate Respiratory/Chest: decreased breath sounds Abdomen: normal bowel sounds Pelvis: normal external exam Edema: no edema noted Arm (L), no edema noted Arm (R), no edema noted Leg (L), no edema noted Leg (R), no edema noted Pedal (L), no edema noted Pedal (R), no edema noted Generalized Objective Current Medications Medications (Trade) Dose Ordered Sig/Hansel Route PRN Reason Start Time Stop Time Status Last Admin Dose Admin Acetaminophen (Tylenol) 650 mg Q4H PRN ORAL T>100.5 12/30/17 07:31 01/19/18 15:30 01/12/18 04:26 Alprazolam (Xanax) 0.25 mg Q6H PRN ORAL For Anxiety 01/08/18 14:45 01/15/18 14:44 Amlodipine Besylate (Norvasc) 5 mg DAILY ORAL 12/27/17 09:00 01/20/18 08:59 01/13/18 08:59 Clonidine HCl (Catapres Tab) 0.1 mg Q4H PRN ORAL sbp more than 160mmHg 12/26/17 15:31 01/23/18 15:30 Dextrose (Dextrose 50%) 25 ml STAT PRN IV Blood Sugar btwn 60-69 mg/dL 12/26/17 15:33 01/25/18 15:32 01/04/18 16:45 Dextrose (Dextrose 50%) 50 ml STAT PRN IV BS less than 60mg/dl 12/26/17 15:34 01/25/18 15:33 Docusate Sodium (Colace) 100 mg THREE TIMES A DAY ORAL 12/26/17 18:00 01/22/18 09:59 01/13/18 17:10 Heparin Sodium (Porcine) (Heparin 5000 units/ml) 5,000 units EVERY 12 HOURS SUBQ 12/26/17 21:00 01/20/18 08:59 01/07/18 08:58 Insulin Aspart (NovoLOG) BEFORE MEALS AND HS SUBQ 12/26/17 16:30 01/22/18 20:59 01/14/18 06:37 Insulin Aspart (NovoLOG) 8 units NOVOTIAC SUBQ 01/10/18 11:50 01/23/18 07:29 01/14/18 06:36 Insulin Detemir (Levemir) 12 units EVERY 12 HOURS SUBQ 01/13/18 09:00 01/23/18 20:59 01/13/18 20:28 Mineral Oil (Fleet's Mineral Oil Enema) 133 ml EVERY OTHER DAY RECTAL 12/27/17 09:00 01/22/18 09:59 01/06/18 08:48 Nitroglycerin (Ntg) 0.4 mg Q5M X 3 DOSES PRN SL Prn Chest Pain 12/26/17 15:59 01/19/18 15:58 Ondansetron HCl (Zofran) 4 mg Q6H PRN IVP Nausea & Vomiting 12/26/17 16:00 01/19/18 15:59 01/04/18 12:11 Polyethylene Glycol (Miralax) 17 gm BEDTIME ORAL 12/26/17 21:00 01/22/18 20:59 01/12/18 21:46 Promethazine HCl/ Codeine (Phenergan with Codeine) 5 ml Q6H PRN ORAL cough 12/26/17 16:01 01/23/18 16:00 Risperidone (RisperDAL) 1 mg BID ORAL 12/26/17 18:00 01/20/18 13:14 01/13/18 17:10 Sennosides (Senokot) 1 tab DAILY ORAL 12/27/17 09:00 01/22/18 14:59 01/13/18 08:59 Vitamin A/Vitamin D (A & D Oint) 1 applic EVERY 12 HOURS TOPIC 12/26/17 21:00 01/20/18 22:59 01/13/18 20:34 Item Value Date Time Bedside Blood Glucose 243 mg/dl H 01/14/18 0637 Bedside Blood Glucose 267 mg/dl H 01/14/18 0131 Bedside Blood Glucose 276 mg/dl H 01/13/18 2100 Bedside Blood Glucose 146 mg/dl H 01/13/18 1709 Bedside Blood Glucose 308 mg/dl H 01/13/18 1218 Bedside Blood Glucose 276 mg/dl H 01/13/18 1044 Bedside Blood Glucose 276 mg/dl H 01/13/18 0640 FEMI MCKEON Jan 14, 2018 07:02
[2018-01-14] MEDS: Docusate 100mg cap ORAL SCH ×3 (09:47→17:18)
[2018-01-14] MEDS: Sennosides 8.6mg ORAL SCH (09:48)
[2018-01-14] MEDS: Levemir Flexpen SUBQ SCH ×2 (09:49→21:24)
[2018-01-14] MEDS: Fleet's Mineral Oil Enema RECTAL SCH (09:50)
[2018-01-14] MEDS: Vitamin A&D Oint 2oz Tube TOPIC SCH ×2 (09:50→21:27)
[2018-01-14] MEDS: Heparin 5000 units/ml inj SUBQ SCH ×2 (09:50→21:00)
--- NOTE | 2018-01-14 12:05 | Internal Med Progress Note ---
Subjective Date of Service: Jan 14, 2018 Physician Name Estefania Mckeon Attending Physician Tone Fried MD Current Medications Medications (Trade) Dose Ordered Sig/Hansel Route PRN Reason Start Time Stop Time Status Last Admin Dose Admin Acetaminophen (Tylenol) 650 mg Q4H PRN ORAL T>100.5 12/30/17 07:31 01/19/18 15:30 01/12/18 04:26 Alprazolam (Xanax) 0.25 mg Q6H PRN ORAL For Anxiety 01/08/18 14:45 01/15/18 14:44 Amlodipine Besylate (Norvasc) 5 mg DAILY ORAL 12/27/17 09:00 01/20/18 08:59 01/14/18 09:48 Clonidine HCl (Catapres Tab) 0.1 mg Q4H PRN ORAL sbp more than 160mmHg 12/26/17 15:31 01/23/18 15:30 Dextrose (Dextrose 50%) 25 ml STAT PRN IV Blood Sugar btwn 60-69 mg/dL 12/26/17 15:33 01/25/18 15:32 01/04/18 16:45 Dextrose (Dextrose 50%) 50 ml STAT PRN IV BS less than 60mg/dl 12/26/17 15:34 01/25/18 15:33 Docusate Sodium (Colace) 100 mg THREE TIMES A DAY ORAL 12/26/17 18:00 01/22/18 09:59 01/14/18 09:47 Heparin Sodium (Porcine) (Heparin 5000 units/ml) 5,000 units EVERY 12 HOURS SUBQ 12/26/17 21:00 01/20/18 08:59 01/07/18 08:58 Insulin Aspart (NovoLOG) BEFORE MEALS AND HS SUBQ 12/26/17 16:30 01/22/18 20:59 01/14/18 06:37 Insulin Aspart (NovoLOG) 10 units NOVOTIAC SUBQ 01/14/18 11:50 01/23/18 07:29 Insulin Detemir (Levemir) 15 units EVERY 12 HOURS SUBQ 01/14/18 09:00 01/23/18 20:59 01/14/18 09:49 Mineral Oil (Fleet's Mineral Oil Enema) 133 ml EVERY OTHER DAY RECTAL 12/27/17 09:00 01/22/18 09:59 01/06/18 08:48 Nitroglycerin (Ntg) 0.4 mg Q5M X 3 DOSES PRN SL Prn Chest Pain 12/26/17 15:59 01/19/18 15:58 Ondansetron HCl (Zofran) 4 mg Q6H PRN IVP Nausea & Vomiting 12/26/17 16:00 01/19/18 15:59 01/04/18 12:11 Polyethylene Glycol (Miralax) 17 gm BEDTIME ORAL 12/26/17 21:00 01/22/18 20:59 01/12/18 21:46 Promethazine HCl/ Codeine (Phenergan with Codeine) 5 ml Q6H PRN ORAL cough 12/26/17 16:01 01/23/18 16:00 Risperidone (RisperDAL) 1 mg BID ORAL 12/26/17 18:00 01/20/18 13:14 01/14/18 09:48 Sennosides (Senokot) 1 tab DAILY ORAL 12/27/17 09:00 01/22/18 14:59 01/14/18 09:48 Vitamin A/Vitamin D (A & D Oint) 1 applic EVERY 12 HOURS TOPIC 12/26/17 21:00 01/20/18 22:59 01/14/18 09:50 Allergies: Coded Allergies: Shrimp (Unverified Allergy, Unknown, 12/04/17) ROS Limited/Unobtainable: No Constitutional: Reports: no symptoms HEENT: Reports: no symptoms Cardiovascular: Reports: no symptoms Respiratory: Reports: shortness of breath Gastrointestinal/Abdominal: Reports: no symptoms Genitourinary: Reports: no symptoms Neurologic/Psychiatric: Reports: no symptoms Subjective 67 YO F admitted with respiratory failure. Now acute COPD exacerbation. Cover for Juan Pablo Fried Objective Last Vital Signs Date Time Temp Pulse Resp B/P (MAP) Pulse Ox O2 Delivery O2 Flow Rate FiO2 01/14/18 09:48 64 121/61 01/14/18 08:00 98.1 20 99 98.1 01/13/18 19:49 Nasal Cannula 2.0 28 General Appearance: WD/WN, no apparent distress, alert EENT: PERRL/EOMI, normal ENT inspection Neck: non-tender, normal alignment, supple Cardiovascular: normal peripheral pulses, normal rate, regular rhythm, no gallop/murmur, no JVD Respiratory/Chest: respiratory distress, crackles/rales, rhonchi - bilaterally , expiratory wheezing Abdomen: normal bowel sounds, non tender, soft, no organomegaly, no mass Edema: trace edema 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 (3) HTN (hypertension) Assessment & Plan: Continue norvasc (4) Respiratory distress (5) COPD (chronic obstructive pulmonary disease) Assessment & Plan: See pulmonary note. (6) Hepatitis C Assessment/Plan Discharge planning: [facility] ESTEFANIA MCKEON Jan 14, 2018 12:05
--- NOTE | 2018-01-14 13:26 | General Progress Note ---
Assessment/Plan Assessment/Plan #. Thrombocytopenia, secondary to hepatitis C --> Hep A and C antibody test (+) --> Monitor for improvement. Transfuse if platelets <20k #. Leukopenia, likely secondary to hepatitis C, currently improved. --> No leukocytosis is noted. The patient has been afebrile. --> Resolved at this time. #. Anemia due to underlying chronic disease. --> Continue to closely monitor. --> Blood transfusion not required unless symptomatic or hgb <7 --> Reviewed anemia workup. Iron 110, TIBC 230, Ferritin 90, B12 821, Folate 6.6 , TSH 1.4 #. Acute on hypoxic respiratory failure, status post tracheostomy, improved. #. Hepatitis C. Management as an outpatient. --> Appreciate Infectious Disease service evaluation. #. Hypertension. Systolic blood pressure goal less than 140. --> Improved. #. COPD. #. Tachycardia. DC Planning. Awaiting placement. Subjective Date patient seen: Jan 13, 2018 Constitutional: Denies: no symptoms, chills, diaphoresis, fever, malaise, weakness, other HEENT: Denies: no symptoms, eye pain, blurred vision, tearing, double vision, ear pain, ear discharge, nose pain, nose congestion, throat pain, throat swelling, mouth pain, mouth swelling, other Cardiovascular: Denies: no symptoms, chest pain, edema, irregular heart rate, lightheadedness, palpitations, syncope, other Respiratory: Denies: no symptoms, cough, orthopnea, shortness of breath, SOB with excertion, SOB at rest, sputum, stridor, wheezing, other Gastrointestinal/Abdominal: Denies: no symptoms, abdomen distended, abdominal pain, black stools, tarry stools, blood in stool, constipated, diarrhea, difficulty swallowing, nausea, poor appetite, poor fluid intake, rectal bleeding , vomiting, other Genitourinary: Denies: no symptoms, burning, discharge, frequency, flank pain, hematuria, incontinence, pain, urgency, other Neurologic/Psychiatric: Denies: no symptoms, anxiety, depressed, emotional problems, headache, numbness, paresthesia, pre-existing deficit, seizure, tingling, tremors, weakness, other Hematologic/Lymphatic: Reports: anemia Allergies: Coded Allergies: Shrimp (Unverified Allergy, Unknown, 12/04/17) Subjective Some sob. Remains tachycardic. Pending placement. Objective Last 24 Hour Vital Signs Date Time Temp Pulse Resp B/P (MAP) Pulse Ox O2 Delivery O2 Flow Rate FiO2 01/14/18 12:00 96.6 63 20 118/69 100 96.6 01/14/18 09:48 64 121/61 01/14/18 08:00 98.1 64 20 121/61 99 98.1 01/14/18 04:12 97.8 105 16 116/65 100 97.8 01/14/18 00:00 98.0 102 16 120/71 99 98.0 01/13/18 20:00 98.2 113 17 116/67 99 98.2 01/13/18 19:49 Nasal Cannula 2.0 28 01/13/18 19:49 98 Nasal Cannula 2.0 28 01/13/18 16:00 97.5 86 19 113/59 100 97.5 01/13/18 13:28 115 20 100 Nasal Cannula 2.0 28 Intake and Output 01/13/18 01/14/18 19:00 07:00 Intake Total 850 ml Balance 850 ml Intake Oral 850 ml # Voids 3 3 # Bowel Movements 1 1 Height (Feet): 5 Height (Inches): 4.00 Weight (Pounds): 148 General Appearance: confused Cardiovascular: tachycardia Respiratory/Chest: lungs clear, normal breath sounds Abdomen: non tender, soft Anuj Alfaro MD Jan 14, 2018 13:26
--- NOTE | 2018-01-14 15:05 | Pulmonology Progress Note ---
Assessment/Plan Problems: (1) Acute and chronic respiratory failure (2) COPD (chronic obstructive pulmonary disease) (3) Hepatitis C Assessment/Plan no new events no new complains respiratory treatment BP controlled tachycardia secondary to agitation. dc planning in progress pts daughter signed for hospice care, awaiting placement Subjective ROS Limited/Unobtainable: No Constitutional: Reports: no symptoms HEENT: Repors: no symptoms Allergies: Coded Allergies: Shrimp (Unverified Allergy, Unknown, 12/04/17) Objective Last 24 Hour Vital Signs Date Time Temp Pulse Resp B/P (MAP) Pulse Ox O2 Delivery O2 Flow Rate FiO2 01/14/18 12:00 96.6 63 20 118/69 100 96.6 01/14/18 09:48 64 121/61 01/14/18 08:00 98.1 64 20 121/61 99 98.1 01/14/18 04:12 97.8 105 16 116/65 100 97.8 01/14/18 00:00 98.0 102 16 120/71 99 98.0 01/13/18 20:00 98.2 113 17 116/67 99 98.2 01/13/18 19:49 Nasal Cannula 2.0 28 01/13/18 19:49 98 Nasal Cannula 2.0 28 01/13/18 16:00 97.5 86 19 113/59 100 97.5 Intake and Output 01/13/18 01/14/18 19:00 07:00 Intake Total 850 ml Balance 850 ml Intake Oral 850 ml # Voids 3 3 # Bowel Movements 1 1 Objective General Appearance: cachetic HEENT: normocephalic Respiratory/Chest: chest wall non-tender, lungs clear Breasts: no masses Cardiovascular: normal peripheral pulses, normal rate Abdomen: normal bowel sounds, soft, non tender Extremities: no cyanosis, no clubbing 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, no motor/sensory deficits Lymphatic: no neck adenopathy Current Medications Medications (Trade) Dose Ordered Sig/Hansel Route PRN Reason Start Time Stop Time Status Last Admin Dose Admin Acetaminophen (Tylenol) 650 mg Q4H PRN ORAL T>100.5 12/30/17 07:31 01/19/18 15:30 01/12/18 04:26 Alprazolam (Xanax) 0.25 mg Q6H PRN ORAL For Anxiety 01/08/18 14:45 01/15/18 14:44 Amlodipine Besylate (Norvasc) 5 mg DAILY ORAL 12/27/17 09:00 01/20/18 08:59 01/14/18 09:48 Clonidine HCl (Catapres Tab) 0.1 mg Q4H PRN ORAL sbp more than 160mmHg 12/26/17 15:31 01/23/18 15:30 Dextrose (Dextrose 50%) 25 ml STAT PRN IV Blood Sugar btwn 60-69 mg/dL 12/26/17 15:33 01/25/18 15:32 01/04/18 16:45 Dextrose (Dextrose 50%) 50 ml STAT PRN IV BS less than 60mg/dl 12/26/17 15:34 01/25/18 15:33 Docusate Sodium (Colace) 100 mg THREE TIMES A DAY ORAL 12/26/17 18:00 01/22/18 09:59 01/14/18 12:05 Heparin Sodium (Porcine) (Heparin 5000 units/ml) 5,000 units EVERY 12 HOURS SUBQ 12/26/17 21:00 01/20/18 08:59 01/07/18 08:58 Insulin Aspart (NovoLOG) BEFORE MEALS AND HS SUBQ 12/26/17 16:30 01/22/18 20:59 01/14/18 12:17 Insulin Aspart (NovoLOG) 10 units NOVOTIAC SUBQ 01/14/18 11:50 01/23/18 07:29 01/14/18 12:18 Insulin Detemir (Levemir) 15 units EVERY 12 HOURS SUBQ 01/14/18 09:00 01/23/18 20:59 01/14/18 09:49 Mineral Oil (Fleet's Mineral Oil Enema) 133 ml EVERY OTHER DAY RECTAL 12/27/17 09:00 01/22/18 09:59 01/06/18 08:48 Nitroglycerin (Ntg) 0.4 mg Q5M X 3 DOSES PRN SL Prn Chest Pain 12/26/17 15:59 01/19/18 15:58 Ondansetron HCl (Zofran) 4 mg Q6H PRN IVP Nausea & Vomiting 12/26/17 16:00 01/19/18 15:59 01/04/18 12:11 Polyethylene Glycol (Miralax) 17 gm BEDTIME ORAL 12/26/17 21:00 01/22/18 20:59 01/12/18 21:46 Promethazine HCl/ Codeine (Phenergan with Codeine) 5 ml Q6H PRN ORAL cough 12/26/17 16:01 01/23/18 16:00 Risperidone (RisperDAL) 1 mg BID ORAL 12/26/17 18:00 01/20/18 13:14 01/14/18 09:48 Sennosides (Senokot) 1 tab DAILY ORAL 12/27/17 09:00 01/22/18 14:59 01/14/18 09:48 Vitamin A/Vitamin D (A & D Oint) 1 applic EVERY 12 HOURS TOPIC 12/26/17 21:00 01/20/18 22:59 01/14/18 09:50 Leni Watts MD Jan 14, 2018 15:05
--- NOTE | 2018-01-14 15:13 | Infectious Diseases Prog Note ---
Assessment/Plan Assessment/Plan Assessment: Acute hypoxic resp failure improved COPD exacerbation- -CXR: No acute disease Afebrile, no leukocytosis Recent acute hypoxic failure and PNA 11/2015 -sp cx 12/04: E.coli (davila S), P. mirabilis (davila S) Influenza sc : Neg transaminitis improving Chronic Hep C, untreated VL 3.8 m,illions Hep panel : A Imm ; B not immune HIV Neg hx of trach s/p removal COPD Dm2 HTN NH resident Plan: - Monitor pt off of AB Rx -12/24 SP Levaquin # 5 /5 -12/10 SP Cefepime #7 -12/06 SP Vanco #3 -Monitor CBC/BMP, temperatures -aspiration precautions Hem fup, re TCP needs treatment of Hep C as outpatient needs Hep B vaccine as outpatient Subjective Allergies: Coded Allergies: Shrimp (Unverified Allergy, Unknown, 12/04/17) Subjective afebrile off abx no leukcoytosis Objective Vital Signs Last 24 Hour Vital Signs Date Time Temp Pulse Resp B/P (MAP) Pulse Ox O2 Delivery O2 Flow Rate FiO2 01/14/18 12:00 96.6 63 20 118/69 100 96.6 01/14/18 09:48 64 121/61 01/14/18 08:00 98.1 64 20 121/61 99 98.1 01/14/18 04:12 97.8 105 16 116/65 100 97.8 01/14/18 00:00 98.0 102 16 120/71 99 98.0 01/13/18 20:00 98.2 113 17 116/67 99 98.2 01/13/18 19:49 Nasal Cannula 2.0 28 01/13/18 19:49 98 Nasal Cannula 2.0 28 01/13/18 16:00 97.5 86 19 113/59 100 97.5 Height (Feet): 5 Height (Inches): 4.00 Weight (Pounds): 148 Objective General Appearance: cachetic HEENT: normocephalic Respiratory/Chest: chest wall non-tender, lungs clear Breasts: no masses Cardiovascular: normal peripheral pulses, normal rate Abdomen: normal bowel sounds, soft, non tender Extremities: no cyanosis, no clubbing 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, no motor/sensory deficits Lymphatic: no neck adenopathy Current Medications Medications (Trade) Dose Ordered Sig/Hansel Route PRN Reason Start Time Stop Time Status Last Admin Dose Admin Acetaminophen (Tylenol) 650 mg Q4H PRN ORAL T>100.5 12/30/17 07:31 01/19/18 15:30 01/12/18 04:26 Alprazolam (Xanax) 0.25 mg Q6H PRN ORAL For Anxiety 01/08/18 14:45 01/15/18 14:44 Amlodipine Besylate (Norvasc) 5 mg DAILY ORAL 12/27/17 09:00 01/20/18 08:59 01/14/18 09:48 Clonidine HCl (Catapres Tab) 0.1 mg Q4H PRN ORAL sbp more than 160mmHg 12/26/17 15:31 01/23/18 15:30 Dextrose (Dextrose 50%) 25 ml STAT PRN IV Blood Sugar btwn 60-69 mg/dL 12/26/17 15:33 01/25/18 15:32 01/04/18 16:45 Dextrose (Dextrose 50%) 50 ml STAT PRN IV BS less than 60mg/dl 12/26/17 15:34 01/25/18 15:33 Docusate Sodium (Colace) 100 mg THREE TIMES A DAY ORAL 12/26/17 18:00 01/22/18 09:59 01/14/18 12:05 Heparin Sodium (Porcine) (Heparin 5000 units/ml) 5,000 units EVERY 12 HOURS SUBQ 12/26/17 21:00 01/20/18 08:59 01/07/18 08:58 Insulin Aspart (NovoLOG) BEFORE MEALS AND HS SUBQ 12/26/17 16:30 01/22/18 20:59 01/14/18 12:17 Insulin Aspart (NovoLOG) 10 units NOVOTIAC SUBQ 01/14/18 11:50 01/23/18 07:29 01/14/18 12:18 Insulin Detemir (Levemir) 15 units EVERY 12 HOURS SUBQ 01/14/18 09:00 01/23/18 20:59 01/14/18 09:49 Mineral Oil (Fleet's Mineral Oil Enema) 133 ml EVERY OTHER DAY RECTAL 12/27/17 09:00 01/22/18 09:59 01/06/18 08:48 Nitroglycerin (Ntg) 0.4 mg Q5M X 3 DOSES PRN SL Prn Chest Pain 12/26/17 15:59 01/19/18 15:58 Ondansetron HCl (Zofran) 4 mg Q6H PRN IVP Nausea & Vomiting 12/26/17 16:00 01/19/18 15:59 01/04/18 12:11 Polyethylene Glycol (Miralax) 17 gm BEDTIME ORAL 12/26/17 21:00 01/22/18 20:59 01/12/18 21:46 Promethazine HCl/ Codeine (Phenergan with Codeine) 5 ml Q6H PRN ORAL cough 12/26/17 16:01 01/23/18 16:00 Risperidone (RisperDAL) 1 mg BID ORAL 12/26/17 18:00 01/20/18 13:14 01/14/18 09:48 Sennosides (Senokot) 1 tab DAILY ORAL 12/27/17 09:00 01/22/18 14:59 01/14/18 09:48 Vitamin A/Vitamin D (A & D Oint) 1 applic EVERY 12 HOURS TOPIC 12/26/17 21:00 01/20/18 22:59 01/14/18 09:50 Caterina Elizondo M.D. Jan 14, 2018 15:13
--- NOTE | 2018-01-14 15:40 | General Progress Note ---
Assessment/Plan Problem List: (1) Hyperkalemia ICD Codes: E87.5 - Hyperkalemia SNOMED: 63979042 (2) Acidosis ICD Codes: E87.2 - Acidosis SNOMED: 37766517 (3) CO2 retention ICD Codes: E87.2 - Acidosis SNOMED: 26483702 (4) Respiratory distress ICD Codes: R06.03 - Acute respiratory distress SNOMED: 961374836 (5) COPD (chronic obstructive pulmonary disease) ICD Codes: J44.9 - Chronic obstructive pulmonary disease, unspecified SNOMED: 80490411 (6) Hepatitis C ICD Codes: B19.20 - Unspecified viral hepatitis C without hepatic coma SNOMED: 15863471 (7) Acute and chronic respiratory failure ICD Codes: J96.20 - Acute and chronic respiratory failure, unspecified whether with hypoxia or hypercapnia SNOMED: 01608906 (8) Diabetes mellitus out of control ICD Codes: E11.65 - Type 2 diabetes mellitus with hyperglycemia SNOMED: 42813145, 516349845 (9) Tachycardia ICD Codes: R00.0 - Tachycardia, unspecified SNOMED: 2745758 (10) Hypertension ICD Codes: I10 - Essential (primary) hypertension SNOMED: 21807096 Assessment/Plan encephalopathy psychosis due to [facility] [place] Risperdal Ativan Subjective Date patient seen: Jan 14, 2018 Neurologic/Psychiatric: Reports: depressed, emotional problems Allergies: Coded Allergies: Shrimp (Unverified Allergy, Unknown, 12/04/17) Subjective no agitation. the pt has is doing well Objective Last 24 Hour Vital Signs Date Time Temp Pulse Resp B/P (MAP) Pulse Ox O2 Delivery O2 Flow Rate FiO2 01/14/18 12:00 96.6 63 20 118/69 100 96.6 01/14/18 09:48 64 121/61 01/14/18 08:00 98.1 64 20 121/61 99 98.1 01/14/18 04:12 97.8 105 16 116/65 100 97.8 01/14/18 00:00 98.0 102 16 120/71 99 98.0 01/13/18 20:00 98.2 113 17 116/67 99 98.2 01/13/18 19:49 Nasal Cannula 2.0 28 01/13/18 19:49 98 Nasal Cannula 2.0 28 01/13/18 16:00 97.5 86 19 113/59 100 97.5 Intake and Output 01/13/18 01/14/18 19:00 07:00 Intake Total 850 ml Balance 850 ml Intake Oral 850 ml # Voids 3 3 # Bowel Movements 1 1 Height (Feet): 5 Height (Inches): 4.00 Weight (Pounds): 148 General Appearance: no apparent distress, alert Grisel Jay M.D. Jan 14, 2018 15:40
--- NOTE | 2018-01-14 19:00 | Progress Note ---
DATE: 01/13/2018 This is a late entry. SUBJECTIVE: The patient has chest pain. No behavior issues. Calm and cooperative. Has episodes of forgetfulness. Psychotic symptoms improved. MENTAL STATUS EXAMINATION: Patient is alert and oriented times self and place and situation. Mood is neutral to dysphoric. Affect is constricted, congruent with mood. Thought process is concrete. Thought content, no suicidal or homicidal ideation. ASSESSMENT: Depression and psychotic symptoms, improved. PLAN: 1. The patient will be continued on current medications. 2. Provide the patient with supportive therapy and reality orientation. Grisel Jay M.D. DR: Jeanie JOB#: [id number] CC:
[2018-01-14] MEDS: Miralax 17gm pkt ORAL SCH (21:19)
--- NOTE | 2018-01-15 00:59 | General Progress Note ---
Assessment/Plan Assessment/Plan #. Anemia due to underlying chronic disease. Mild at this time. --> Continue to closely monitor. --> Blood transfusion not required unless symptomatic or hgb <7 --> Reviewed anemia workup. Iron 110, TIBC 230, Ferritin 90, B12 821, Folate 6.6 , TSH 1.4 #. Thrombocytopenia, secondary to hepatitis C --> Hep A and C antibody test (+) --> Monitor for improvement. Transfuse if platelets <20k #. Leukopenia, likely secondary to hepatitis C, currently improved. --> No leukocytosis is noted. The patient has been afebrile. --> Resolved at this time. #. Tachycardia. #. Acute on hypoxic respiratory failure, status post tracheostomy, improved. #. Hepatitis C. Management as an outpatient. --> Appreciate Infectious Disease service evaluation. #. Hypertension. Systolic blood pressure goal less than 140. --> Improved. #. COPD. DC Planning. Awaiting placement. Subjective Date patient seen: Jan 14, 2018 Constitutional: Denies: no symptoms, chills, diaphoresis, fever, malaise, weakness, other HEENT: Denies: no symptoms, eye pain, blurred vision, tearing, double vision, ear pain, ear discharge, nose pain, nose congestion, throat pain, throat swelling, mouth pain, mouth swelling, other Cardiovascular: Denies: no symptoms, chest pain, edema, irregular heart rate, lightheadedness, palpitations, syncope, other Respiratory: Denies: no symptoms, cough, orthopnea, shortness of breath, SOB with excertion, SOB at rest, sputum, stridor, wheezing, other Gastrointestinal/Abdominal: Denies: no symptoms, abdomen distended, abdominal pain, black stools, tarry stools, blood in stool, constipated, diarrhea, difficulty swallowing, nausea, poor appetite, poor fluid intake, rectal bleeding , vomiting, other Genitourinary: Denies: no symptoms, burning, discharge, frequency, flank pain, hematuria, incontinence, pain, urgency, other Neurologic/Psychiatric: Denies: no symptoms, anxiety, depressed, emotional problems, headache, numbness, paresthesia, pre-existing deficit, seizure, tingling, tremors, weakness, other Hematologic/Lymphatic: Reports: anemia Allergies: Coded Allergies: Shrimp (Unverified Allergy, Unknown, 12/04/17) Subjective BP improved. Remains tachycardic. H/H stable. Objective Last 24 Hour Vital Signs Date Time Temp Pulse Resp B/P (MAP) Pulse Ox O2 Delivery O2 Flow Rate FiO2 01/14/18 23:21 97.9 126 20 126/69 99 Room Air 97.9 01/14/18 21:30 97 Nasal Cannula 2.0 28 01/14/18 21:30 Nasal Cannula 2.0 28 01/14/18 19:21 97.7 121 20 121/70 100 Nasal Cannula 97.7 01/14/18 16:00 97.9 106 20 118/65 100 97.9 01/14/18 12:00 96.6 63 20 118/69 100 96.6 01/14/18 09:48 64 121/61 01/14/18 08:00 98.1 64 20 121/61 99 98.1 01/14/18 04:12 97.8 105 16 116/65 100 97.8 Intake and Output 01/14/18 01/15/18 19:00 07:00 Intake Total 480 ml 460 ml Balance 480 ml 460 ml Intake Oral 480 ml 460 ml # Voids 3 2 Height (Feet): 5 Height (Inches): 4.00 Weight (Pounds): 148 General Appearance: no apparent distress Cardiovascular: tachycardia Respiratory/Chest: lungs clear Abdomen: normal bowel sounds, non tender Anuj Alfaro MD January 15, 2018 00:59
[2018-01-15 04:24] VITALS: BP 119/71
[2018-01-15] MEDS: NovoLOG Insulin Flexpen SUBQ SCH ×8 (06:15→20:57)
--- NOTE | 2018-01-15 06:22 | General Progress Note ---
Assessment/Plan Problem List: (1) Diabetes mellitus out of control ICD Codes: E11.65 - Type 2 diabetes mellitus with hyperglycemia SNOMED: 94471178, 021047722 (2) COPD (chronic obstructive pulmonary disease) ICD Codes: J44.9 - Chronic obstructive pulmonary disease, unspecified SNOMED: 78370556 (3) Acute and chronic respiratory failure ICD Codes: J96.20 - Acute and chronic respiratory failure, unspecified whether with hypoxia or hypercapnia SNOMED: 15773687 Assessment/Plan increase Levemir to 20 units bid increase Novolog to 12 units ac tid continue NISS Subjective Allergies: Coded Allergies: Shrimp (Unverified Allergy, Unknown, 12/04/17) All Systems: reviewed and negative except above Subjective events noted glucose values elevated despite not receiving steroids Objective Last 24 Hour Vital Signs Date Time Temp Pulse Resp B/P (MAP) Pulse Ox O2 Delivery O2 Flow Rate FiO2 01/15/18 04:24 97.9 135 20 119/71 99 Nasal Cannula 97.9 01/14/18 23:21 97.9 126 20 126/69 99 Room Air 97.9 01/14/18 21:30 97 Nasal Cannula 2.0 28 01/14/18 21:30 Nasal Cannula 2.0 28 01/14/18 19:21 97.7 121 20 121/70 100 Nasal Cannula 97.7 01/14/18 16:00 97.9 106 20 118/65 100 97.9 01/14/18 12:00 96.6 63 20 118/69 100 96.6 01/14/18 09:48 64 121/61 01/14/18 08:00 98.1 64 20 121/61 99 98.1 Intake and Output 01/14/18 01/15/18 19:00 07:00 Intake Total 480 ml 460 ml Balance 480 ml 460 ml Intake Oral 480 ml 460 ml # Voids 3 2 Height (Feet): 5 Height (Inches): 4.00 Weight (Pounds): 148 General Appearance: no apparent distress EENT: pale conjunctivae Neck: normal alignment Cardiovascular: normal rate Respiratory/Chest: decreased breath sounds Abdomen: normal bowel sounds Edema: no edema noted Arm (L), no edema noted Arm (R), no edema noted Leg (L), no edema noted Leg (R), no edema noted Pedal (L), no edema noted Pedal (R), no edema noted Generalized Objective Current Medications Medications (Trade) Dose Ordered Sig/Hansel Route PRN Reason Start Time Stop Time Status Last Admin Dose Admin Acetaminophen (Tylenol) 650 mg Q4H PRN ORAL T>100.5 12/30/17 07:31 01/19/18 15:30 01/12/18 04:26 Alprazolam (Xanax) 0.25 mg Q6H PRN ORAL For Anxiety 01/08/18 14:45 01/15/18 14:44 Amlodipine Besylate (Norvasc) 5 mg DAILY ORAL 12/27/17 09:00 01/20/18 08:59 01/14/18 09:48 Clonidine HCl (Catapres Tab) 0.1 mg Q4H PRN ORAL sbp more than 160mmHg 12/26/17 15:31 01/23/18 15:30 Dextrose (Dextrose 50%) 25 ml STAT PRN IV Blood Sugar btwn 60-69 mg/dL 12/26/17 15:33 01/25/18 15:32 01/04/18 16:45 Dextrose (Dextrose 50%) 50 ml STAT PRN IV BS less than 60mg/dl 12/26/17 15:34 01/25/18 15:33 Docusate Sodium (Colace) 100 mg THREE TIMES A DAY ORAL 12/26/17 18:00 01/22/18 09:59 01/14/18 17:18 Heparin Sodium (Porcine) (Heparin 5000 units/ml) 5,000 units EVERY 12 HOURS SUBQ 12/26/17 21:00 01/20/18 08:59 01/07/18 08:58 Insulin Aspart (NovoLOG) BEFORE MEALS AND HS SUBQ 12/26/17 16:30 01/22/18 20:59 01/15/18 06:15 Insulin Aspart (NovoLOG) 10 units NOVOTIAC SUBQ 01/14/18 11:50 01/23/18 07:29 01/15/18 06:15 Insulin Detemir (Levemir) 15 units EVERY 12 HOURS SUBQ 01/14/18 09:00 01/23/18 20:59 01/14/18 21:24 Mineral Oil (Fleet's Mineral Oil Enema) 133 ml EVERY OTHER DAY RECTAL 12/27/17 09:00 01/22/18 09:59 01/06/18 08:48 Nitroglycerin (Ntg) 0.4 mg Q5M X 3 DOSES PRN SL Prn Chest Pain 12/26/17 15:59 01/19/18 15:58 Ondansetron HCl (Zofran) 4 mg Q6H PRN IVP Nausea & Vomiting 12/26/17 16:00 01/19/18 15:59 01/04/18 12:11 Polyethylene Glycol (Miralax) 17 gm BEDTIME ORAL 12/26/17 21:00 01/22/18 20:59 01/14/18 21:19 Promethazine HCl/ Codeine (Phenergan with Codeine) 5 ml Q6H PRN ORAL cough 12/26/17 16:01 01/23/18 16:00 Risperidone (RisperDAL) 1 mg BID ORAL 12/26/17 18:00 01/20/18 13:14 01/14/18 17:18 Sennosides (Senokot) 1 tab DAILY ORAL 12/27/17 09:00 01/22/18 14:59 01/14/18 09:48 Vitamin A/Vitamin D (A & D Oint) 1 applic EVERY 12 HOURS TOPIC 12/26/17 21:00 01/20/18 22:59 01/14/18 21:27 Item Value Date Time Bedside Blood Glucose 352 mg/dl H 01/15/18 0615 Bedside Blood Glucose 146 mg/dl H 01/14/18 2125 Bedside Blood Glucose 250 mg/dl H 01/14/18 1720 Bedside Blood Glucose 258 mg/dl H 01/14/18 1218 Bedside Blood Glucose 243 mg/dl H 01/14/18 0637 FEMI MCKEON January 15, 2018 06:22
[2018-01-15 08:00] VITALS: BP 139/75
[2018-01-15] MEDS: Sennosides 8.6mg ORAL SCH (08:31)
[2018-01-15] MEDS: Docusate 100mg cap ORAL SCH ×3 (08:31→16:57)
[2018-01-15] MEDS: Heparin 5000 units/ml inj SUBQ SCH ×2 (08:32→20:49)
[2018-01-15] MEDS: Vitamin A&D Oint 2oz Tube TOPIC SCH ×2 (08:33→20:58)
[2018-01-15] MEDS: Levemir Flexpen SUBQ SCH ×2 (09:04→20:56)
[2018-01-15 12:00] VITALS: BP 114/63
--- NOTE | 2018-01-15 12:29 | Infectious Diseases Prog Note ---
Assessment/Plan Assessment/Plan Assessment: Acute hypoxic resp failure improved COPD exacerbation- -CXR: No acute disease Afebrile, no leukocytosis Recent acute hypoxic failure and PNA 11/2015 -sp cx 12/04: E.coli (davila S), P. mirabilis (davila S) Influenza sc : Neg transaminitis improving Chronic Hep C, untreated VL 3.8 m,illions Hep panel : A Imm ; B not immune HIV Neg hx of trach s/p removal COPD Dm2 HTN NH resident Plan: - Monitor pt off of AB Rx -12/24 SP Levaquin # 5 /5 -12/10 SP Cefepime #7 -12/06 SP Vanco #3 -Monitor CBC/BMP, temperatures -aspiration precautions Hem fup, re TCP needs treatment of Hep C as outpatient needs Hep B vaccine as outpatient Subjective Allergies: Coded Allergies: Shrimp (Unverified Allergy, Unknown, 12/04/17) Subjective afebrile off abx no leukcoytosis Objective Vital Signs Last 24 Hour Vital Signs Date Time Temp Pulse Resp B/P (MAP) Pulse Ox O2 Delivery O2 Flow Rate FiO2 01/15/18 08:32 105 139/75 01/15/18 08:00 99.0 125 25 139/75 100 99.0 01/15/18 04:24 97.9 135 20 119/71 99 Nasal Cannula 97.9 01/14/18 23:21 97.9 126 20 126/69 99 Room Air 97.9 01/14/18 21:30 97 Nasal Cannula 2.0 28 01/14/18 21:30 Nasal Cannula 2.0 28 01/14/18 19:21 97.7 121 20 121/70 100 Nasal Cannula 97.7 01/14/18 16:00 97.9 106 20 118/65 100 97.9 Height (Feet): 5 Height (Inches): 4.00 Weight (Pounds): 143 Objective General Appearance: cachetic HEENT: normocephalic Respiratory/Chest: chest wall non-tender, lungs clear Breasts: no masses Cardiovascular: normal peripheral pulses, normal rate Abdomen: normal bowel sounds, soft, non tender Extremities: no cyanosis, no clubbing 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, no motor/sensory deficits Lymphatic: no neck adenopathy Current Medications Medications (Trade) Dose Ordered Sig/Hansel Route PRN Reason Start Time Stop Time Status Last Admin Dose Admin Acetaminophen (Tylenol) 650 mg Q4H PRN ORAL T>100.5 12/30/17 07:31 01/19/18 15:30 01/12/18 04:26 Alprazolam (Xanax) 0.25 mg Q6H PRN ORAL For Anxiety 01/08/18 14:45 01/15/18 14:44 Amlodipine Besylate (Norvasc) 5 mg DAILY ORAL 12/27/17 09:00 01/20/18 08:59 01/15/18 08:32 Clonidine HCl (Catapres Tab) 0.1 mg Q4H PRN ORAL sbp more than 160mmHg 12/26/17 15:31 01/23/18 15:30 Dextrose (Dextrose 50%) 25 ml STAT PRN IV Blood Sugar btwn 60-69 mg/dL 12/26/17 15:33 01/25/18 15:32 01/04/18 16:45 Dextrose (Dextrose 50%) 50 ml STAT PRN IV BS less than 60mg/dl 12/26/17 15:34 01/25/18 15:33 Docusate Sodium (Colace) 100 mg THREE TIMES A DAY ORAL 12/26/17 18:00 01/22/18 09:59 01/15/18 12:10 Heparin Sodium (Porcine) (Heparin 5000 units/ml) 5,000 units EVERY 12 HOURS SUBQ 12/26/17 21:00 01/20/18 08:59 01/07/18 08:58 Insulin Aspart (NovoLOG) BEFORE MEALS AND HS SUBQ 12/26/17 16:30 01/22/18 20:59 01/15/18 12:00 Insulin Aspart (NovoLOG) 12 units NOVOTIAC SUBQ 01/15/18 06:30 01/23/18 07:29 01/15/18 11:59 Insulin Detemir (Levemir) 20 units EVERY 12 HOURS SUBQ 01/15/18 09:00 01/23/18 20:59 01/15/18 09:04 Mineral Oil (Fleet's Mineral Oil Enema) 133 ml EVERY OTHER DAY RECTAL 12/27/17 09:00 01/22/18 09:59 01/06/18 08:48 Nitroglycerin (Ntg) 0.4 mg Q5M X 3 DOSES PRN SL Prn Chest Pain 12/26/17 15:59 01/19/18 15:58 Ondansetron HCl (Zofran) 4 mg Q6H PRN IVP Nausea & Vomiting 12/26/17 16:00 01/19/18 15:59 01/04/18 12:11 Polyethylene Glycol (Miralax) 17 gm BEDTIME ORAL 12/26/17 21:00 01/22/18 20:59 01/14/18 21:19 Promethazine HCl/ Codeine (Phenergan with Codeine) 5 ml Q6H PRN ORAL cough 12/26/17 16:01 01/23/18 16:00 Risperidone (RisperDAL) 1 mg BID ORAL 12/26/17 18:00 01/20/18 13:14 01/15/18 08:31 Sennosides (Senokot) 1 tab DAILY ORAL 12/27/17 09:00 01/22/18 14:59 01/15/18 08:31 Vitamin A/Vitamin D (A & D Oint) 1 applic EVERY 12 HOURS TOPIC 12/26/17 21:00 01/20/18 22:59 01/15/18 08:33 Caterina Elizondo M.D. January 15, 2018 12:29
--- NOTE | 2018-01-15 14:53 | Pulmonology Progress Note ---
Assessment/Plan Problems: (1) Acute and chronic respiratory failure (2) COPD (chronic obstructive pulmonary disease) (3) Hepatitis C Assessment/Plan no new events no new complains respiratory treatment BP controlled tachycardia secondary to agitation. dc planning in progress pts daughter signed for hospice care, awaiting placement Subjective ROS Limited/Unobtainable: No Constitutional: Reports: no symptoms HEENT: Repors: no symptoms Respiratory: Reports: no symptoms Allergies: Coded Allergies: Shrimp (Unverified Allergy, Unknown, 12/04/17) Objective Last 24 Hour Vital Signs Date Time Temp Pulse Resp B/P (MAP) Pulse Ox O2 Delivery O2 Flow Rate FiO2 01/15/18 12:00 97.7 117 22 114/63 100 97.7 01/15/18 08:32 105 139/75 01/15/18 08:00 Nasal Cannula 2.0 28 01/15/18 08:00 97 Nasal Cannula 2.0 28 01/15/18 08:00 99.0 125 25 139/75 100 99.0 01/15/18 04:24 97.9 135 20 119/71 99 Nasal Cannula 97.9 01/14/18 23:21 97.9 126 20 126/69 99 Room Air 97.9 01/14/18 21:30 97 Nasal Cannula 2.0 28 01/14/18 21:30 Nasal Cannula 2.0 28 01/14/18 19:21 97.7 121 20 121/70 100 Nasal Cannula 97.7 01/14/18 16:00 97.9 106 20 118/65 100 97.9 Intake and Output 01/14/18 01/15/18 19:00 07:00 Intake Total 480 ml 460 ml Balance 480 ml 460 ml Intake Oral 480 ml 460 ml # Voids 3 5 Objective General Appearance: cachetic HEENT: normocephalic Respiratory/Chest: chest wall non-tender, lungs clear Breasts: no masses Cardiovascular: normal peripheral pulses, normal rate Abdomen: normal bowel sounds, soft, non tender Extremities: no cyanosis, no clubbing 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, no motor/sensory deficits Lymphatic: no neck adenopathy Current Medications Medications (Trade) Dose Ordered Sig/Hansel Route PRN Reason Start Time Stop Time Status Last Admin Dose Admin Acetaminophen (Tylenol) 650 mg Q4H PRN ORAL T>100.5 12/30/17 07:31 01/19/18 15:30 01/12/18 04:26 Amlodipine Besylate (Norvasc) 5 mg DAILY ORAL 12/27/17 09:00 01/20/18 08:59 01/15/18 08:32 Clonidine HCl (Catapres Tab) 0.1 mg Q4H PRN ORAL sbp more than 160mmHg 12/26/17 15:31 01/23/18 15:30 Dextrose (Dextrose 50%) 25 ml STAT PRN IV Blood Sugar btwn 60-69 mg/dL 12/26/17 15:33 01/25/18 15:32 01/04/18 16:45 Dextrose (Dextrose 50%) 50 ml STAT PRN IV BS less than 60mg/dl 12/26/17 15:34 01/25/18 15:33 Docusate Sodium (Colace) 100 mg THREE TIMES A DAY ORAL 12/26/17 18:00 01/22/18 09:59 01/15/18 12:10 Heparin Sodium (Porcine) (Heparin 5000 units/ml) 5,000 units EVERY 12 HOURS SUBQ 12/26/17 21:00 01/20/18 08:59 01/07/18 08:58 Insulin Aspart (NovoLOG) BEFORE MEALS AND HS SUBQ 12/26/17 16:30 01/22/18 20:59 01/15/18 12:00 Insulin Aspart (NovoLOG) 12 units NOVOTIAC SUBQ 01/15/18 06:30 01/23/18 07:29 01/15/18 11:59 Insulin Detemir (Levemir) 20 units EVERY 12 HOURS SUBQ 01/15/18 09:00 01/23/18 20:59 01/15/18 09:04 Mineral Oil (Fleet's Mineral Oil Enema) 133 ml EVERY OTHER DAY RECTAL 12/27/17 09:00 01/22/18 09:59 01/06/18 08:48 Nitroglycerin (Ntg) 0.4 mg Q5M X 3 DOSES PRN SL Prn Chest Pain 12/26/17 15:59 01/19/18 15:58 Ondansetron HCl (Zofran) 4 mg Q6H PRN IVP Nausea & Vomiting 12/26/17 16:00 01/19/18 15:59 01/04/18 12:11 Polyethylene Glycol (Miralax) 17 gm BEDTIME ORAL 12/26/17 21:00 01/22/18 20:59 01/14/18 21:19 Promethazine HCl/ Codeine (Phenergan with Codeine) 5 ml Q6H PRN ORAL cough 12/26/17 16:01 01/23/18 16:00 Risperidone (RisperDAL) 1 mg BID ORAL 12/26/17 18:00 01/20/18 13:14 01/15/18 08:31 Sennosides (Senokot) 1 tab DAILY ORAL 12/27/17 09:00 01/22/18 14:59 01/15/18 08:31 Vitamin A/Vitamin D (A & D Oint) 1 applic EVERY 12 HOURS TOPIC 12/26/17 21:00 01/20/18 22:59 01/15/18 08:33 Leni Watts MD January 15, 2018 14:53
[2018-01-15 15:55] VITALS: BP 123/82
--- NOTE | 2018-01-15 17:19 | Internal Med Progress Note ---
Subjective Date of Service: January 15, 2018 Physician Name Estefania Mckeon Attending Physician Tone Fried MD Current Medications Medications (Trade) Dose Ordered Sig/Hansel Route PRN Reason Start Time Stop Time Status Last Admin Dose Admin Acetaminophen (Tylenol) 650 mg Q4H PRN ORAL T>100.5 12/30/17 07:31 01/19/18 15:30 01/12/18 04:26 Amlodipine Besylate (Norvasc) 5 mg DAILY ORAL 12/27/17 09:00 01/20/18 08:59 01/15/18 08:32 Clonidine HCl (Catapres Tab) 0.1 mg Q4H PRN ORAL sbp more than 160mmHg 12/26/17 15:31 01/23/18 15:30 Dextrose (Dextrose 50%) 25 ml STAT PRN IV Blood Sugar btwn 60-69 mg/dL 12/26/17 15:33 01/25/18 15:32 01/04/18 16:45 Dextrose (Dextrose 50%) 50 ml STAT PRN IV BS less than 60mg/dl 12/26/17 15:34 01/25/18 15:33 Docusate Sodium (Colace) 100 mg THREE TIMES A DAY ORAL 12/26/17 18:00 01/22/18 09:59 01/15/18 16:57 Heparin Sodium (Porcine) (Heparin 5000 units/ml) 5,000 units EVERY 12 HOURS SUBQ 12/26/17 21:00 01/20/18 08:59 01/07/18 08:58 Insulin Aspart (NovoLOG) BEFORE MEALS AND HS SUBQ 12/26/17 16:30 01/22/18 20:59 01/15/18 16:45 Insulin Aspart (NovoLOG) 12 units NOVOTIAC SUBQ 01/15/18 06:30 01/23/18 07:29 01/15/18 16:46 Insulin Detemir (Levemir) 20 units EVERY 12 HOURS SUBQ 01/15/18 09:00 01/23/18 20:59 01/15/18 09:04 Mineral Oil (Fleet's Mineral Oil Enema) 133 ml EVERY OTHER DAY RECTAL 12/27/17 09:00 01/22/18 09:59 01/06/18 08:48 Nitroglycerin (Ntg) 0.4 mg Q5M X 3 DOSES PRN SL Prn Chest Pain 12/26/17 15:59 01/19/18 15:58 Ondansetron HCl (Zofran) 4 mg Q6H PRN IVP Nausea & Vomiting 12/26/17 16:00 01/19/18 15:59 01/04/18 12:11 Polyethylene Glycol (Miralax) 17 gm BEDTIME ORAL 12/26/17 21:00 01/22/18 20:59 01/14/18 21:19 Promethazine HCl/ Codeine (Phenergan with Codeine) 5 ml Q6H PRN ORAL cough 12/26/17 16:01 01/23/18 16:00 Risperidone (RisperDAL) 1 mg BID ORAL 12/26/17 18:00 01/20/18 13:14 01/15/18 16:57 Sennosides (Senokot) 1 tab DAILY ORAL 12/27/17 09:00 01/22/18 14:59 01/15/18 08:31 Vitamin A/Vitamin D (A & D Oint) 1 applic EVERY 12 HOURS TOPIC 12/26/17 21:00 01/20/18 22:59 01/15/18 08:33 Allergies: Coded Allergies: Shrimp (Unverified Allergy, Unknown, 12/04/17) ROS Limited/Unobtainable: No Constitutional: Reports: no symptoms HEENT: Reports: no symptoms Cardiovascular: Reports: no symptoms Respiratory: Reports: shortness of breath, wheezing Gastrointestinal/Abdominal: Reports: no symptoms Genitourinary: Reports: no symptoms Neurologic/Psychiatric: Reports: no symptoms Subjective 67 YO F admitted with respiratory failure. Now acute COPD exacerbation. Cover for Juan Pablo Fried Objective Last Vital Signs Date Time Temp Pulse Resp B/P (MAP) Pulse Ox O2 Delivery O2 Flow Rate FiO2 01/15/18 15:55 97.9 119 20 123/82 99 97.9 01/15/18 08:00 Nasal Cannula 2.0 28 Intake and Output 01/14/18 01/15/18 19:00 07:00 Intake Total 480 ml 460 ml Balance 480 ml 460 ml Intake Oral 480 ml 460 ml # Voids 3 5 Objective General Appearance: WD/WN, no apparent distress, alert EENT: PERRL/EOMI, normal ENT inspection Neck: non-tender, normal alignment, supple Cardiovascular: normal peripheral pulses, normal rate, regular rhythm, no gallop/murmur, no JVD Respiratory/Chest: respiratory distress, crackles/rales, rhonchi - bilaterally , expiratory wheezing Abdomen: normal bowel sounds, non tender, soft, no organomegaly, no mass Edema: trace edema 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 (3) HTN (hypertension) Assessment & Plan: Continue norvasc (4) Respiratory distress (5) COPD (chronic obstructive pulmonary disease) Assessment & Plan: See pulmonary note. (6) Hepatitis C Assessment/Plan Discharge planning: [facility] ESTEFANIA MCKEON January 15, 2018 17:19
[2018-01-15 20:00] VITALS: BP 112/70
[2018-01-15] MEDS: Miralax 17gm pkt ORAL SCH (20:57)
--- NOTE | 2018-01-15 22:34 | General Progress Note ---
Assessment/Plan Problem List: (1) Hyperkalemia ICD Codes: E87.5 - Hyperkalemia SNOMED: 28604278 (2) Acidosis ICD Codes: E87.2 - Acidosis SNOMED: 08282007 (3) CO2 retention ICD Codes: E87.2 - Acidosis SNOMED: 07039033 (4) Respiratory distress ICD Codes: R06.03 - Acute respiratory distress SNOMED: 990100171 (5) COPD (chronic obstructive pulmonary disease) ICD Codes: J44.9 - Chronic obstructive pulmonary disease, unspecified SNOMED: 45461218 (6) Hepatitis C ICD Codes: B19.20 - Unspecified viral hepatitis C without hepatic coma SNOMED: 95033784 (7) Acute and chronic respiratory failure ICD Codes: J96.20 - Acute and chronic respiratory failure, unspecified whether with hypoxia or hypercapnia SNOMED: 29963556 (8) Diabetes mellitus out of control ICD Codes: E11.65 - Type 2 diabetes mellitus with hyperglycemia SNOMED: 60984037, 173145505 (9) Tachycardia ICD Codes: R00.0 - Tachycardia, unspecified SNOMED: 2010133 (10) Hypertension ICD Codes: I10 - Essential (primary) hypertension SNOMED: 25795633 Assessment/Plan 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 the pt has is doing well Objective Last 24 Hour Vital Signs Date Time Temp Pulse Resp B/P (MAP) Pulse Ox O2 Delivery O2 Flow Rate FiO2 01/15/18 20:00 97.9 121 19 112/70 97 97.9 01/15/18 15:55 97.9 119 20 123/82 99 97.9 01/15/18 12:00 97.7 117 22 114/63 100 97.7 01/15/18 08:32 105 139/75 01/15/18 08:00 Nasal Cannula 2.0 28 01/15/18 08:00 97 Nasal Cannula 2.0 28 01/15/18 08:00 99.0 125 25 139/75 100 99.0 01/15/18 04:24 97.9 135 20 119/71 99 Nasal Cannula 97.9 01/14/18 23:21 97.9 126 20 126/69 99 Room Air 97.9 Intake and Output 01/14/18 01/15/18 19:00 07:00 Intake Total 480 ml 460 ml Balance 480 ml 460 ml Intake Oral 480 ml 460 ml # Voids 3 5 Height (Feet): 5 Height (Inches): 4.00 Weight (Pounds): 143 Grisel Jay M.D. January 15, 2018 22:34
[2018-01-16 00:24] VITALS: BP 108/65
[2018-01-16 04:00] VITALS: BP 121/71
[2018-01-16] MEDS: NovoLOG Insulin Flexpen SUBQ SCH ×7 (05:51→22:09)
--- NOTE | 2018-01-16 06:52 | General Progress Note ---
Assessment/Plan Problem List: (1) Diabetes mellitus out of control ICD Codes: E11.65 - Type 2 diabetes mellitus with hyperglycemia SNOMED: 79875364, 811117477 (2) COPD (chronic obstructive pulmonary disease) ICD Codes: J44.9 - Chronic obstructive pulmonary disease, unspecified SNOMED: 90518881 (3) Acute and chronic respiratory failure ICD Codes: J96.20 - Acute and chronic respiratory failure, unspecified whether with hypoxia or hypercapnia SNOMED: 81535813 Assessment/Plan continue Levemir 20 units bid continue Novolog 12 units ac tid continue NISS Subjective Allergies: Coded Allergies: Shrimp (Unverified Allergy, Unknown, 12/04/17) All Systems: reviewed and negative except above Subjective events noted glucose values improved after insulin dose adjustment yesterday Objective Last 24 Hour Vital Signs Date Time Temp Pulse Resp B/P (MAP) Pulse Ox O2 Delivery O2 Flow Rate FiO2 01/16/18 04:00 98.0 119 20 121/71 96 98.0 01/16/18 00:24 97.6 118 19 108/65 95 97.6 01/16/18 00:05 Nasal Cannula 2.0 28 01/15/18 20:00 Nasal Cannula 2.0 01/15/18 20:00 97.9 121 19 112/70 97 97.9 01/15/18 19:20 99 Nasal Cannula 2.0 28 01/15/18 19:20 Nasal Cannula 2.0 28 01/15/18 15:55 97.9 119 20 123/82 99 97.9 01/15/18 12:00 97.7 117 22 114/63 100 97.7 01/15/18 08:32 105 139/75 01/15/18 08:00 Nasal Cannula 2.0 28 01/15/18 08:00 97 Nasal Cannula 2.0 28 01/15/18 08:00 99.0 125 25 139/75 100 99.0 Intake and Output 01/15/18 01/16/18 19:00 07:00 Intake Total 240 ml 360 ml Balance 240 ml 360 ml Intake Oral 240 ml 360 ml # Voids 1 3 # Bowel Movements 1 Height (Feet): 5 Height (Inches): 4.00 Weight (Pounds): 142 General Appearance: no apparent distress Neck: normal alignment Cardiovascular: normal rate Respiratory/Chest: decreased breath sounds Abdomen: normal bowel sounds Pelvis: normal external exam Objective Current Medications Medications (Trade) Dose Ordered Sig/Hansel Route PRN Reason Start Time Stop Time Status Last Admin Dose Admin Acetaminophen (Tylenol) 650 mg Q4H PRN ORAL T>100.5 12/30/17 07:31 01/19/18 15:30 01/12/18 04:26 Amlodipine Besylate (Norvasc) 5 mg DAILY ORAL 12/27/17 09:00 01/20/18 08:59 01/15/18 08:32 Clonidine HCl (Catapres Tab) 0.1 mg Q4H PRN ORAL sbp more than 160mmHg 12/26/17 15:31 01/23/18 15:30 Dextrose (Dextrose 50%) 25 ml STAT PRN IV Blood Sugar btwn 60-69 mg/dL 12/26/17 15:33 01/25/18 15:32 01/04/18 16:45 Dextrose (Dextrose 50%) 50 ml STAT PRN IV BS less than 60mg/dl 12/26/17 15:34 01/25/18 15:33 Docusate Sodium (Colace) 100 mg THREE TIMES A DAY ORAL 12/26/17 18:00 01/22/18 09:59 01/15/18 16:57 Heparin Sodium (Porcine) (Heparin 5000 units/ml) 5,000 units EVERY 12 HOURS SUBQ 12/26/17 21:00 01/20/18 08:59 01/07/18 08:58 Insulin Aspart (NovoLOG) BEFORE MEALS AND HS SUBQ 12/26/17 16:30 01/22/18 20:59 01/16/18 05:51 Insulin Aspart (NovoLOG) 12 units NOVOTIAC SUBQ 01/15/18 06:30 01/23/18 07:29 01/16/18 05:51 Insulin Detemir (Levemir) 20 units EVERY 12 HOURS SUBQ 01/15/18 09:00 01/23/18 20:59 01/15/18 20:56 Mineral Oil (Fleet's Mineral Oil Enema) 133 ml EVERY OTHER DAY RECTAL 12/27/17 09:00 01/22/18 09:59 01/06/18 08:48 Nitroglycerin (Ntg) 0.4 mg Q5M X 3 DOSES PRN SL Prn Chest Pain 12/26/17 15:59 01/19/18 15:58 Ondansetron HCl (Zofran) 4 mg Q6H PRN IVP Nausea & Vomiting 12/26/17 16:00 01/19/18 15:59 01/04/18 12:11 Polyethylene Glycol (Miralax) 17 gm BEDTIME ORAL 12/26/17 21:00 01/22/18 20:59 01/14/18 21:19 Promethazine HCl/ Codeine (Phenergan with Codeine) 5 ml Q6H PRN ORAL cough 12/26/17 16:01 01/23/18 16:00 Risperidone (RisperDAL) 1 mg BID ORAL 12/26/17 18:00 01/20/18 13:14 01/15/18 16:57 Sennosides (Senokot) 1 tab DAILY ORAL 12/27/17 09:00 01/22/18 14:59 01/15/18 08:31 Vitamin A/Vitamin D (A & D Oint) 1 applic EVERY 12 HOURS TOPIC 12/26/17 21:00 01/20/18 22:59 01/15/18 20:58 Item Value Date Time Bedside Blood Glucose 230 mg/dl H 01/16/18 0602 Bedside Blood Glucose 131 mg/dl H 01/15/18 2057 Bedside Blood Glucose 171 mg/dl H 01/15/18 1646 Bedside Blood Glucose 196 mg/dl H 01/15/18 1200 Bedside Blood Glucose 352 mg/dl H 01/15/18 0904 FEMI MCKEON January 16, 2018 06:52
[2018-01-16 08:00] VITALS: BP 129/83
[2018-01-16] MEDS: Fleet's Mineral Oil Enema RECTAL SCH (09:00)
[2018-01-16] MEDS: Heparin 5000 units/ml inj SUBQ SCH ×2 (09:00→19:58)
[2018-01-16] MEDS: Docusate 100mg cap ORAL SCH ×3 (09:08→17:12)
[2018-01-16] MEDS: Sennosides 8.6mg ORAL SCH (09:08)
[2018-01-16] MEDS: Vitamin A&D Oint 2oz Tube TOPIC SCH ×2 (09:10→22:09)
[2018-01-16] MEDS: Levemir Flexpen SUBQ SCH ×2 (09:20→22:09)
--- NOTE | 2018-01-16 11:23 | Internal Med Progress Note ---
Subjective Date of Service: January 16, 2018 Physician Name Estefania Mckeon Attending Physician Tone Fried MD Current Medications Medications (Trade) Dose Ordered Sig/Hansel Route PRN Reason Start Time Stop Time Status Last Admin Dose Admin Acetaminophen (Tylenol) 650 mg Q4H PRN ORAL T>100.5 12/30/17 07:31 01/19/18 15:30 01/12/18 04:26 Amlodipine Besylate (Norvasc) 5 mg DAILY ORAL 12/27/17 09:00 01/20/18 08:59 01/16/18 09:08 Clonidine HCl (Catapres Tab) 0.1 mg Q4H PRN ORAL sbp more than 160mmHg 12/26/17 15:31 01/23/18 15:30 Dextrose (Dextrose 50%) 25 ml STAT PRN IV Blood Sugar btwn 60-69 mg/dL 12/26/17 15:33 01/25/18 15:32 01/04/18 16:45 Dextrose (Dextrose 50%) 50 ml STAT PRN IV BS less than 60mg/dl 12/26/17 15:34 01/25/18 15:33 Docusate Sodium (Colace) 100 mg THREE TIMES A DAY ORAL 12/26/17 18:00 01/22/18 09:59 01/16/18 09:08 Heparin Sodium (Porcine) (Heparin 5000 units/ml) 5,000 units EVERY 12 HOURS SUBQ 12/26/17 21:00 01/20/18 08:59 01/07/18 08:58 Insulin Aspart (NovoLOG) BEFORE MEALS AND HS SUBQ 12/26/17 16:30 01/22/18 20:59 01/16/18 05:51 Insulin Aspart (NovoLOG) 12 units NOVOTIAC SUBQ 01/15/18 06:30 01/23/18 07:29 01/16/18 05:51 Insulin Detemir (Levemir) 20 units EVERY 12 HOURS SUBQ 01/15/18 09:00 01/23/18 20:59 01/16/18 09:20 Mineral Oil (Fleet's Mineral Oil Enema) 133 ml EVERY OTHER DAY RECTAL 12/27/17 09:00 01/22/18 09:59 01/06/18 08:48 Nitroglycerin (Ntg) 0.4 mg Q5M X 3 DOSES PRN SL Prn Chest Pain 12/26/17 15:59 01/19/18 15:58 Ondansetron HCl (Zofran) 4 mg Q6H PRN IVP Nausea & Vomiting 12/26/17 16:00 01/19/18 15:59 01/04/18 12:11 Polyethylene Glycol (Miralax) 17 gm BEDTIME ORAL 12/26/17 21:00 01/22/18 20:59 01/14/18 21:19 Promethazine HCl/ Codeine (Phenergan with Codeine) 5 ml Q6H PRN ORAL cough 12/26/17 16:01 01/23/18 16:00 Risperidone (RisperDAL) 1 mg BID ORAL 12/26/17 18:00 01/20/18 13:14 01/16/18 09:08 Sennosides (Senokot) 1 tab DAILY ORAL 12/27/17 09:00 01/22/18 14:59 01/16/18 09:08 Vitamin A/Vitamin D (A & D Oint) 1 applic EVERY 12 HOURS TOPIC 12/26/17 21:00 01/20/18 22:59 01/16/18 09:10 Allergies: Coded Allergies: Shrimp (Unverified Allergy, Unknown, 12/04/17) ROS Limited/Unobtainable: Yes Subjective 67 YO F admitted with respiratory failure. Now acute COPD exacerbation. Cover for Juan Pablo Fried. Await placement Objective Last Vital Signs Date Time Temp Pulse Resp B/P (MAP) Pulse Ox O2 Delivery O2 Flow Rate FiO2 01/16/18 09:08 129 129/83 01/16/18 08:00 96.8 16 96.8 01/16/18 08:00 99 Nasal Cannula 2.0 01/16/18 00:05 28 Intake and Output 01/15/18 01/16/18 19:00 07:00 Intake Total 240 ml 360 ml Balance 240 ml 360 ml Intake Oral 240 ml 360 ml # Voids 1 3 # Bowel Movements 1 Objective General Appearance: WD/WN, no apparent distress, alert EENT: PERRL/EOMI, normal ENT inspection Neck: non-tender, normal alignment, supple Cardiovascular: normal peripheral pulses, normal rate, regular rhythm, no gallop/murmur, no JVD Respiratory/Chest: respiratory distress, crackles/rales, rhonchi - bilaterally , expiratory wheezing Abdomen: normal bowel sounds, non tender, soft, no organomegaly, no mass Edema: trace edema 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 (3) HTN (hypertension) Assessment & Plan: Continue norvasc (4) Respiratory distress (5) COPD (chronic obstructive pulmonary disease) Assessment & Plan: See pulmonary note. (6) Hepatitis C Assessment/Plan Discharge planning: [facility] ESTEFANIA MCKEON January 16, 2018 11:23
[2018-01-16 12:00] VITALS: BP 106/67
[2018-01-16 12:11] VITALS: BP 106/67
--- NOTE | 2018-01-16 12:18 | General Progress Note ---
Assessment/Plan Problem List: (1) Hyperkalemia ICD Codes: E87.5 - Hyperkalemia SNOMED: 06988412 (2) Acidosis ICD Codes: E87.2 - Acidosis SNOMED: 93341920 (3) CO2 retention ICD Codes: E87.2 - Acidosis SNOMED: 24574128 (4) Respiratory distress ICD Codes: R06.03 - Acute respiratory distress SNOMED: 398609928 (5) COPD (chronic obstructive pulmonary disease) ICD Codes: J44.9 - Chronic obstructive pulmonary disease, unspecified SNOMED: 28179228 (6) Hepatitis C ICD Codes: B19.20 - Unspecified viral hepatitis C without hepatic coma SNOMED: 22002435 (7) Acute and chronic respiratory failure ICD Codes: J96.20 - Acute and chronic respiratory failure, unspecified whether with hypoxia or hypercapnia SNOMED: 43860397 (8) Diabetes mellitus out of control ICD Codes: E11.65 - Type 2 diabetes mellitus with hyperglycemia SNOMED: 51257873, 563215997 (9) Tachycardia ICD Codes: R00.0 - Tachycardia, unspecified SNOMED: 7216639 (10) Hypertension ICD Codes: I10 - Essential (primary) hypertension SNOMED: 08451437 Status: stable, progressing Assessment/Plan encephalopathy [place] [facility] [place] Subjective Date patient seen: January 16, 2018 Neurologic/Psychiatric: Reports: anxiety, depressed, emotional problems Allergies: Coded Allergies: Shrimp (Unverified Allergy, Unknown, 12/04/17) Subjective no agitation. the pt wants to leave. Objective Last 24 Hour Vital Signs Date Time Temp Pulse Resp B/P (MAP) Pulse Ox O2 Delivery O2 Flow Rate FiO2 01/16/18 12:11 96.8 115 20 106/67 96.8 01/16/18 09:08 129 129/83 01/16/18 08:05 116 01/16/18 08:00 96.8 129 16 129/83 96.8 01/16/18 08:00 99 Nasal Cannula 2.0 01/16/18 04:00 98.0 119 20 121/71 96 98.0 01/16/18 00:24 97.6 118 19 108/65 95 97.6 01/16/18 00:05 Nasal Cannula 2.0 28 01/15/18 20:00 Nasal Cannula 2.0 01/15/18 20:00 97.9 121 19 112/70 97 97.9 01/15/18 19:20 99 Nasal Cannula 2.0 28 01/15/18 19:20 Nasal Cannula 2.0 28 01/15/18 15:55 97.9 119 20 123/82 99 97.9 Intake and Output 01/15/18 01/16/18 19:00 07:00 Intake Total 240 ml 360 ml Balance 240 ml 360 ml Intake Oral 240 ml 360 ml # Voids 1 3 # Bowel Movements 1 Height (Feet): 5 Height (Inches): 4.00 Weight (Pounds): 142 General Appearance: WD/WN, no apparent distress, alert Neurologic: alert, oriented x 3, responsive Grisel Jay M.D. January 16, 2018 12:18
[2018-01-16 14:05] LABS: HEMATOCRIT 32.4 % (37.0-47.0); HEMOGLOBIN 9.8 G/DL (12.0-16.0); MEAN CORPUSCULAR VOLUME 85 FL (80-99); PLATELET COUNT 92 K/UL (150-450); RED CELL DISTRIBUTION WIDTH 14.5 % (11.6-14.8); WHITE BLOOD COUNT 5.1 K/UL (4.8-10.8)
--- NOTE | 2018-01-16 14:43 | Pulmonology Progress Note ---
Assessment/Plan Problems: (1) Acute and chronic respiratory failure (2) COPD (chronic obstructive pulmonary disease) (3) Hepatitis C Assessment/Plan no new events no new complains respiratory treatment BP controlled dc planning in progress pts daughter signed for hospice care, awaiting placement Subjective ROS Limited/Unobtainable: No Constitutional: Reports: no symptoms HEENT: Repors: no symptoms Allergies: Coded Allergies: Shrimp (Unverified Allergy, Unknown, 12/04/17) Objective Last 24 Hour Vital Signs Date Time Temp Pulse Resp B/P (MAP) Pulse Ox O2 Delivery O2 Flow Rate FiO2 01/16/18 12:11 96.8 115 20 106/67 96.8 01/16/18 12:00 96.8 115 20 106/67 98 Nasal Cannula 2.0 96.8 01/16/18 09:08 129 129/83 01/16/18 08:05 116 01/16/18 08:00 96.8 129 16 129/83 96.8 01/16/18 08:00 99 Nasal Cannula 2.0 01/16/18 04:00 98.0 119 20 121/71 96 98.0 01/16/18 00:24 97.6 118 19 108/65 95 97.6 01/16/18 00:05 Nasal Cannula 2.0 28 01/15/18 20:00 Nasal Cannula 2.0 01/15/18 20:00 97.9 121 19 112/70 97 97.9 01/15/18 19:20 99 Nasal Cannula 2.0 28 01/15/18 19:20 Nasal Cannula 2.0 28 01/15/18 15:55 97.9 119 20 123/82 99 97.9 Intake and Output 01/15/18 01/16/18 19:00 07:00 Intake Total 240 ml 360 ml Balance 240 ml 360 ml Intake Oral 240 ml 360 ml # Voids 1 3 # Bowel Movements 1 Objective General Appearance: cachetic HEENT: normocephalic Respiratory/Chest: chest wall non-tender, lungs clear Breasts: no masses Cardiovascular: normal peripheral pulses, normal rate Abdomen: normal bowel sounds, soft, non tender Extremities: no cyanosis, no clubbing 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, no motor/sensory deficits Lymphatic: no neck adenopathy Laboratory Tests 01/16/18 13:40: White Blood Count 5.1, Red Blood Count 3.80L, Hemoglobin 9.8L, Hematocrit 32.4L , Mean Corpuscular Volume 85, Mean Corpuscular Hemoglobin 25.9L, Mean Corpuscular Hemoglobin Concent 30.4L, Red Cell Distribution Width 14.5, Platelet Count 92L, Mean Platelet Volume 7.6, Neutrophils (%) (Auto) , Lymphocytes (%) (Auto) , Monocytes (%) (Auto) , Eosinophils (%) (Auto) , Basophils (%) (Auto) , Neutrophils % (Manual) [Pending], Lymphocytes % (Manual) [Pending], Platelet Estimate [Pending], Platelet Morphology [Pending] Current Medications Medications (Trade) Dose Ordered Sig/Hansel Route PRN Reason Start Time Stop Time Status Last Admin Dose Admin Acetaminophen (Tylenol) 650 mg Q4H PRN ORAL T>100.5 12/30/17 07:31 01/19/18 15:30 01/12/18 04:26 Amlodipine Besylate (Norvasc) 5 mg DAILY ORAL 12/27/17 09:00 01/20/18 08:59 01/16/18 09:08 Clonidine HCl (Catapres Tab) 0.1 mg Q4H PRN ORAL sbp more than 160mmHg 12/26/17 15:31 01/23/18 15:30 Dextrose (Dextrose 50%) 25 ml STAT PRN IV Blood Sugar btwn 60-69 mg/dL 12/26/17 15:33 01/25/18 15:32 01/04/18 16:45 Dextrose (Dextrose 50%) 50 ml STAT PRN IV BS less than 60mg/dl 12/26/17 15:34 01/25/18 15:33 Docusate Sodium (Colace) 100 mg THREE TIMES A DAY ORAL 12/26/17 18:00 01/22/18 09:59 01/16/18 09:08 Heparin Sodium (Porcine) (Heparin 5000 units/ml) 5,000 units EVERY 12 HOURS SUBQ 12/26/17 21:00 01/20/18 08:59 01/07/18 08:58 Insulin Aspart (NovoLOG) BEFORE MEALS AND HS SUBQ 12/26/17 16:30 01/22/18 20:59 01/16/18 11:20 Insulin Aspart (NovoLOG) 12 units NOVOTIAC SUBQ 01/15/18 06:30 01/23/18 07:29 01/16/18 11:19 Insulin Detemir (Levemir) 20 units EVERY 12 HOURS SUBQ 01/15/18 09:00 01/23/18 20:59 01/16/18 09:20 Mineral Oil (Fleet's Mineral Oil Enema) 133 ml EVERY OTHER DAY RECTAL 12/27/17 09:00 01/22/18 09:59 01/06/18 08:48 Nitroglycerin (Ntg) 0.4 mg Q5M X 3 DOSES PRN SL Prn Chest Pain 12/26/17 15:59 01/19/18 15:58 Ondansetron HCl (Zofran) 4 mg Q6H PRN IVP Nausea & Vomiting 12/26/17 16:00 01/19/18 15:59 01/04/18 12:11 Polyethylene Glycol (Miralax) 17 gm BEDTIME ORAL 12/26/17 21:00 01/22/18 20:59 01/14/18 21:19 Promethazine HCl/ Codeine (Phenergan with Codeine) 5 ml Q6H PRN ORAL cough 12/26/17 16:01 01/23/18 16:00 Risperidone (RisperDAL) 1 mg BID ORAL 12/26/17 18:00 01/20/18 13:14 01/16/18 09:08 Sennosides (Senokot) 1 tab DAILY ORAL 12/27/17 09:00 01/22/18 14:59 01/16/18 09:08 Vitamin A/Vitamin D (A & D Oint) 1 applic EVERY 12 HOURS TOPIC 12/26/17 21:00 01/20/18 22:59 01/16/18 09:10 Leni Watts MD January 16, 2018 14:43
[2018-01-16 15:41] VITALS: BP 102/61
[2018-01-16] MEDS: Albuterol/Ipratropium 3ml neb HHN PRN (15:43)
--- NOTE | 2018-01-16 16:58 | Infectious Diseases Prog Note ---
Assessment/Plan Assessment/Plan Assessment: Acute hypoxic resp failure improved COPD exacerbation- -CXR: No acute disease Afebrile, no leukocytosis Recent acute hypoxic failure and PNA 11/2015 -sp cx 12/04: E.coli (davila S), P. mirabilis (davila S) Influenza sc : Neg transaminitis improving Chronic Hep C, untreated VL 3.8 m,illions Hep panel : A Imm ; B not immune HIV Neg hx of trach s/p removal COPD Dm2 HTN NH resident Plan: - Monitor pt off of AB Rx -12/24 SP Levaquin # 5 /5 -12/10 SP Cefepime #7 -12/06 SP Vanco #3 -Monitor CBC/BMP, temperatures -aspiration precautions Hem fup, re TCP needs treatment of Hep C as outpatient needs Hep B vaccine as outpatient Subjective Allergies: Coded Allergies: Shrimp (Unverified Allergy, Unknown, 12/04/17) Subjective afebrile off abx no leukcoytosis Objective Vital Signs Last 24 Hour Vital Signs Date Time Temp Pulse Resp B/P (MAP) Pulse Ox O2 Delivery O2 Flow Rate FiO2 01/16/18 15:55 99 Nasal Cannula 2.0 01/16/18 15:51 92 18 100 Nasal Cannula 2.0 28 01/16/18 15:44 28 01/16/18 15:44 86 18 96 Nasal Cannula 2.0 28 01/16/18 15:41 97.7 119 20 102/61 97.7 01/16/18 12:11 96.8 115 20 106/67 96.8 01/16/18 12:00 96.8 115 20 106/67 98 Nasal Cannula 2.0 96.8 01/16/18 09:08 129 129/83 01/16/18 08:05 116 01/16/18 08:00 96.8 129 16 129/83 96.8 01/16/18 08:00 99 Nasal Cannula 2.0 01/16/18 04:00 98.0 119 20 121/71 96 98.0 01/16/18 00:24 97.6 118 19 108/65 95 97.6 01/16/18 00:05 Nasal Cannula 2.0 28 01/15/18 20:00 Nasal Cannula 2.0 01/15/18 20:00 97.9 121 19 112/70 97 97.9 01/15/18 19:20 99 Nasal Cannula 2.0 28 01/15/18 19:20 Nasal Cannula 2.0 28 Height (Feet): 5 Height (Inches): 4.00 Weight (Pounds): 142 Objective General Appearance: cachetic HEENT: normocephalic Respiratory/Chest: chest wall non-tender, lungs clear Breasts: no masses Cardiovascular: normal peripheral pulses, normal rate Abdomen: normal bowel sounds, soft, non tender Extremities: no cyanosis, no clubbing 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, no motor/sensory deficits Lymphatic: no neck adenopathy Laboratory Tests Test 01/16/18 13:40 White Blood Count 5.1 K/UL (4.8-10.8) Red Blood Count 3.80 M/UL (4.20-5.40) L Hemoglobin 9.8 G/DL (12.0-16.0) L Hematocrit 32.4 % (37.0-47.0) L Mean Corpuscular Volume 85 FL (80-99) Mean Corpuscular Hemoglobin 25.9 PG (27.0-31.0) L Mean Corpuscular Hemoglobin Concent 30.4 G/DL (32.0-36.0) L Red Cell Distribution Width 14.5 % (11.6-14.8) Platelet Count 92 K/UL (150-450) L Mean Platelet Volume 7.6 FL (6.5-10.1) Neutrophils (%) (Auto) % (45.0-75.0) Lymphocytes (%) (Auto) % (20.0-45.0) Monocytes (%) (Auto) % (1.0-10.0) Eosinophils (%) (Auto) % (0.0-3.0) Basophils (%) (Auto) % (0.0-2.0) Differential Total Cells Counted 100 Neutrophils % (Manual) 46 % (45-75) Lymphocytes % (Manual) 44 % (20-45) Monocytes % (Manual) 7 % (1-10) Eosinophils % (Manual) 3 % (0-3) Basophils % (Manual) 0 % (0-2) Band Neutrophils 0 % (0-8) Platelet Estimate Decreased L Platelet Morphology Normal Hypochromasia 1+ Anisocytosis 1+ Current Medications Medications (Trade) Dose Ordered Sig/Hansel Route PRN Reason Start Time Stop Time Status Last Admin Dose Admin Acetaminophen (Tylenol) 650 mg Q4H PRN ORAL T>100.5 12/30/17 07:31 01/19/18 15:30 01/12/18 04:26 Albuterol/ Ipratropium (Albuterol/ Ipratropium) 3 ml Q6H PRN HHN Shortness of Breath 01/16/18 15:45 01/21/18 15:44 01/16/18 15:43 Amlodipine Besylate (Norvasc) 5 mg DAILY ORAL 12/27/17 09:00 01/20/18 08:59 01/16/18 09:08 Clonidine HCl (Catapres Tab) 0.1 mg Q4H PRN ORAL sbp more than 160mmHg 12/26/17 15:31 01/23/18 15:30 Dextrose (Dextrose 50%) 25 ml STAT PRN IV Blood Sugar btwn 60-69 mg/dL 12/26/17 15:33 01/25/18 15:32 01/04/18 16:45 Dextrose (Dextrose 50%) 50 ml STAT PRN IV BS less than 60mg/dl 12/26/17 15:34 01/25/18 15:33 Docusate Sodium (Colace) 100 mg THREE TIMES A DAY ORAL 12/26/17 18:00 01/22/18 09:59 01/16/18 09:08 Heparin Sodium (Porcine) (Heparin 5000 units/ml) 5,000 units EVERY 12 HOURS SUBQ 12/26/17 21:00 01/20/18 08:59 01/07/18 08:58 Insulin Aspart (NovoLOG) BEFORE MEALS AND HS SUBQ 12/26/17 16:30 01/22/18 20:59 01/16/18 11:20 Insulin Aspart (NovoLOG) 12 units NOVOTIAC SUBQ 01/15/18 06:30 01/23/18 07:29 01/16/18 11:19 Insulin Detemir (Levemir) 20 units EVERY 12 HOURS SUBQ 01/15/18 09:00 01/23/18 20:59 01/16/18 09:20 Mineral Oil (Fleet's Mineral Oil Enema) 133 ml EVERY OTHER DAY RECTAL 12/27/17 09:00 01/22/18 09:59 01/06/18 08:48 Nitroglycerin (Ntg) 0.4 mg Q5M X 3 DOSES PRN SL Prn Chest Pain 12/26/17 15:59 01/19/18 15:58 Ondansetron HCl (Zofran) 4 mg Q6H PRN IVP Nausea & Vomiting 12/26/17 16:00 01/19/18 15:59 01/04/18 12:11 Polyethylene Glycol (Miralax) 17 gm BEDTIME ORAL 12/26/17 21:00 01/22/18 20:59 01/14/18 21:19 Promethazine HCl/ Codeine (Phenergan with Codeine) 5 ml Q6H PRN ORAL cough 12/26/17 16:01 01/23/18 16:00 Risperidone (RisperDAL) 1 mg BID ORAL 12/26/17 18:00 01/20/18 13:14 01/16/18 09:08 Sennosides (Senokot) 1 tab DAILY ORAL 12/27/17 09:00 01/22/18 14:59 01/16/18 09:08 Vitamin A/Vitamin D (A & D Oint) 1 applic EVERY 12 HOURS TOPIC 12/26/17 21:00 01/20/18 22:59 01/16/18 09:10 Caterina Elizondo M.D. January 16, 2018 16:58
[2018-01-16] MEDS: Miralax 17gm pkt ORAL SCH (21:00)
--- NOTE | 2018-01-16 22:58 | General Progress Note ---
Assessment/Plan Assessment/Plan #. Anemia due to underlying chronic disease. Mild at this time. --> Continue to closely monitor. Has been stable. --> Blood transfusion not required unless symptomatic or hgb <7 --> Reviewed anemia workup. Iron 110, TIBC 230, Ferritin 90, B12 821, Folate 6.6 , TSH 1.4 #. Thrombocytopenia, secondary to hepatitis C --> Hep A and C antibody test (+) --> Monitor for improvement. Transfuse if platelets <20k #. Leukopenia, likely secondary to hepatitis C, currently improved. --> No leukocytosis is noted. The patient has been afebrile. --> Resolved at this time. #. Tachycardia. #. Acute on hypoxic respiratory failure, status post tracheostomy, improved. #. Hepatitis C. Management as an outpatient. --> Appreciate Infectious Disease service evaluation. #. Hypertension. Systolic blood pressure goal less than 140. --> Improved. #. COPD. DC Planning. Awaiting placement. Subjective Date patient seen: January 15, 2018 Constitutional: Denies: no symptoms, chills, diaphoresis, fever, malaise, weakness, other HEENT: Denies: no symptoms, eye pain, blurred vision, tearing, double vision, ear pain, ear discharge, nose pain, nose congestion, throat pain, throat swelling, mouth pain, mouth swelling, other Cardiovascular: Denies: no symptoms, chest pain, edema, irregular heart rate, lightheadedness, palpitations, syncope, other Respiratory: Denies: no symptoms, cough, orthopnea, shortness of breath, SOB with excertion, SOB at rest, sputum, stridor, wheezing, other Gastrointestinal/Abdominal: Denies: no symptoms, abdomen distended, abdominal pain, black stools, tarry stools, blood in stool, constipated, diarrhea, difficulty swallowing, nausea, poor appetite, poor fluid intake, rectal bleeding , vomiting, other Genitourinary: Denies: no symptoms, burning, discharge, frequency, flank pain, hematuria, incontinence, pain, urgency, other Neurologic/Psychiatric: Denies: no symptoms, anxiety, depressed, emotional problems, headache, numbness, paresthesia, pre-existing deficit, seizure, tingling, tremors, weakness, other Hematologic/Lymphatic: Reports: anemia Allergies: Coded Allergies: Shrimp (Unverified Allergy, Unknown, 12/04/17) Subjective Remains tachycardic. No acute events. Pending placement. Objective Last 24 Hour Vital Signs Date Time Temp Pulse Resp B/P (MAP) Pulse Ox O2 Delivery O2 Flow Rate FiO2 01/16/18 22:01 Nasal Cannula 2.0 28 01/16/18 22:01 90 18 Nasal Cannula 2.0 28 01/16/18 21:00 99 Nasal Cannula 2.0 28 01/16/18 15:55 99 Nasal Cannula 2.0 01/16/18 15:51 92 18 100 Nasal Cannula 2.0 28 01/16/18 15:44 28 01/16/18 15:44 86 18 96 Nasal Cannula 2.0 28 01/16/18 15:41 97.7 119 20 102/61 97.7 01/16/18 12:11 96.8 115 20 106/67 96.8 01/16/18 12:00 96.8 115 20 106/67 98 Nasal Cannula 2.0 96.8 01/16/18 09:08 129 129/83 01/16/18 08:05 116 01/16/18 08:00 96.8 129 16 129/83 96.8 01/16/18 08:00 99 Nasal Cannula 2.0 01/16/18 04:00 98.0 119 20 121/71 96 98.0 01/16/18 00:24 97.6 118 19 108/65 95 97.6 01/16/18 00:05 Nasal Cannula 2.0 28 Intake and Output 01/15/18 01/16/18 19:00 07:00 Intake Total 240 ml 360 ml Balance 240 ml 360 ml Intake Oral 240 ml 360 ml # Voids 1 3 # Bowel Movements 1 Laboratory Tests 01/16/18 13:40: White Blood Count 5.1, Red Blood Count 3.80L, Hemoglobin 9.8L, Hematocrit 32.4L , Mean Corpuscular Volume 85, Mean Corpuscular Hemoglobin 25.9L, Mean Corpuscular Hemoglobin Concent 30.4L, Red Cell Distribution Width 14.5, Platelet Count 92L, Mean Platelet Volume 7.6, Neutrophils (%) (Auto) , Lymphocytes (%) (Auto) , Monocytes (%) (Auto) , Eosinophils (%) (Auto) , Basophils (%) (Auto) , Differential Total Cells Counted 100, Neutrophils % ( Manual) 46, Lymphocytes % (Manual) 44, Monocytes % (Manual) 7, Eosinophils % ( Manual) 3, Basophils % (Manual) 0, Band Neutrophils 0, Platelet Estimate DecreasedL, Platelet Morphology Normal, Hypochromasia 1+, Anisocytosis 1+ Height (Feet): 5 Height (Inches): 4.00 Weight (Pounds): 142 General Appearance: cachetic Neck: supple Cardiovascular: tachycardia Respiratory/Chest: lungs clear, normal breath sounds Abdomen: normal bowel sounds, non tender Anuj Alfaro MD January 16, 2018 22:58
[2018-01-17 00:51] VITALS: BP 105/67
[2018-01-17 04:00] VITALS: BP 122/79
[2018-01-17] MEDS: NovoLOG Insulin Flexpen SUBQ SCH ×10 (06:52→20:58)
--- NOTE | 2018-01-17 07:09 | General Progress Note ---
Assessment/Plan Problem List: (1) Diabetes mellitus out of control ICD Codes: E11.65 - Type 2 diabetes mellitus with hyperglycemia SNOMED: 76557815, 091035547 (2) COPD (chronic obstructive pulmonary disease) ICD Codes: J44.9 - Chronic obstructive pulmonary disease, unspecified SNOMED: 66396582 (3) Acute and chronic respiratory failure ICD Codes: J96.20 - Acute and chronic respiratory failure, unspecified whether with hypoxia or hypercapnia SNOMED: 94634497 Assessment/Plan continue Levemir 20 units bid continue Novolog 12 units ac tid continue NISS Subjective Allergies: Coded Allergies: Shrimp (Unverified Allergy, Unknown, 12/04/17) All Systems: reviewed and negative except above Subjective events noted Objective Last 24 Hour Vital Signs Date Time Temp Pulse Resp B/P (MAP) Pulse Ox O2 Delivery O2 Flow Rate FiO2 01/17/18 06:02 97.0 01/17/18 05:03 97.0 01/17/18 04:00 97.2 112 18 122/79 99 Nasal Cannula 2.0 97.2 01/17/18 00:51 97.0 102 18 105/67 100 Nasal Cannula 2.0 97.0 01/16/18 22:01 Nasal Cannula 2.0 28 01/16/18 22:01 90 18 Nasal Cannula 2.0 28 01/16/18 21:00 99 Nasal Cannula 2.0 28 01/16/18 15:55 99 Nasal Cannula 2.0 01/16/18 15:51 92 18 100 Nasal Cannula 2.0 28 01/16/18 15:44 28 01/16/18 15:44 86 18 96 Nasal Cannula 2.0 28 01/16/18 15:41 97.7 119 20 102/61 97.7 01/16/18 12:11 96.8 115 20 106/67 96.8 01/16/18 12:00 96.8 115 20 106/67 98 Nasal Cannula 2.0 96.8 01/16/18 09:08 129 129/83 01/16/18 08:05 116 01/16/18 08:00 96.8 129 16 129/83 96.8 01/16/18 08:00 99 Nasal Cannula 2.0 Intake and Output 01/16/18 01/17/18 19:00 07:00 Intake Total 600 ml 30 ml Balance 600 ml 30 ml Intake Oral 600 ml 30 ml # Voids 3 2 # Bowel Movements 1 Laboratory Tests 01/16/18 13:40: White Blood Count 5.1, Red Blood Count 3.80L, Hemoglobin 9.8L, Hematocrit 32.4L , Mean Corpuscular Volume 85, Mean Corpuscular Hemoglobin 25.9L, Mean Corpuscular Hemoglobin Concent 30.4L, Red Cell Distribution Width 14.5, Platelet Count 92L, Mean Platelet Volume 7.6, Neutrophils (%) (Auto) , Lymphocytes (%) (Auto) , Monocytes (%) (Auto) , Eosinophils (%) (Auto) , Basophils (%) (Auto) , Differential Total Cells Counted 100, Neutrophils % ( Manual) 46, Lymphocytes % (Manual) 44, Monocytes % (Manual) 7, Eosinophils % ( Manual) 3, Basophils % (Manual) 0, Band Neutrophils 0, Platelet Estimate DecreasedL, Platelet Morphology Normal, Hypochromasia 1+, Anisocytosis 1+ Height (Feet): 5 Height (Inches): 4.00 Weight (Pounds): 138 General Appearance: no apparent distress Neck: normal alignment Cardiovascular: normal rate Respiratory/Chest: decreased breath sounds Abdomen: normal bowel sounds Pelvis: normal external exam Objective Current Medications Medications (Trade) Dose Ordered Sig/Hansel Route PRN Reason Start Time Stop Time Status Last Admin Dose Admin Acetaminophen (Tylenol) 650 mg Q4H PRN ORAL T>100.5 12/30/17 07:31 01/19/18 15:30 01/17/18 05:03 Albuterol/ Ipratropium (Albuterol/ Ipratropium) 3 ml Q6H PRN HHN Shortness of Breath 01/16/18 15:45 01/21/18 15:44 01/16/18 15:43 Amlodipine Besylate (Norvasc) 5 mg DAILY ORAL 12/27/17 09:00 01/20/18 08:59 01/16/18 09:08 Clonidine HCl (Catapres Tab) 0.1 mg Q4H PRN ORAL sbp more than 160mmHg 12/26/17 15:31 01/23/18 15:30 Dextrose (Dextrose 50%) 25 ml STAT PRN IV Blood Sugar btwn 60-69 mg/dL 12/26/17 15:33 01/25/18 15:32 01/04/18 16:45 Dextrose (Dextrose 50%) 50 ml STAT PRN IV BS less than 60mg/dl 12/26/17 15:34 01/25/18 15:33 Docusate Sodium (Colace) 100 mg THREE TIMES A DAY ORAL 12/26/17 18:00 01/22/18 09:59 01/16/18 09:08 Heparin Sodium (Porcine) (Heparin 5000 units/ml) 5,000 units EVERY 12 HOURS SUBQ 12/26/17 21:00 01/20/18 08:59 01/07/18 08:58 Insulin Aspart (NovoLOG) BEFORE MEALS AND HS SUBQ 12/26/17 16:30 01/22/18 20:59 01/17/18 06:52 Insulin Aspart (NovoLOG) 12 units NOVOTIAC SUBQ 01/15/18 06:30 01/23/18 07:29 01/17/18 06:52 Insulin Detemir (Levemir) 20 units EVERY 12 HOURS SUBQ 01/15/18 09:00 01/23/18 20:59 01/16/18 22:09 Mineral Oil (Fleet's Mineral Oil Enema) 133 ml EVERY OTHER DAY RECTAL 12/27/17 09:00 01/22/18 09:59 01/06/18 08:48 Nitroglycerin (Ntg) 0.4 mg Q5M X 3 DOSES PRN SL Prn Chest Pain 12/26/17 15:59 01/19/18 15:58 Ondansetron HCl (Zofran) 4 mg Q6H PRN IVP Nausea & Vomiting 12/26/17 16:00 01/19/18 15:59 01/04/18 12:11 Polyethylene Glycol (Miralax) 17 gm BEDTIME ORAL 12/26/17 21:00 01/22/18 20:59 01/14/18 21:19 Promethazine HCl/ Codeine (Phenergan with Codeine) 5 ml Q6H PRN ORAL cough 12/26/17 16:01 01/23/18 16:00 Risperidone (RisperDAL) 1 mg BID ORAL 12/26/17 18:00 01/20/18 13:14 01/16/18 17:34 Sennosides (Senokot) 1 tab DAILY ORAL 12/27/17 09:00 01/22/18 14:59 01/16/18 09:08 Vitamin A/Vitamin D (A & D Oint) 1 applic EVERY 12 HOURS TOPIC 12/26/17 21:00 01/20/18 22:59 01/16/18 22:09 Item Value Date Time Bedside Blood Glucose 185 mg/dl H 01/17/18 0652 Bedside Blood Glucose 362 mg/dl H 01/16/18 2209 Bedside Blood Glucose 131 mg/dl H 01/16/18 1749 Bedside Blood Glucose 356 mg/dl H 01/16/18 1130 Bedside Blood Glucose 230 mg/dl H 01/16/18 0920 Bedside Blood Glucose 230 mg/dl H 01/16/18 0602 FEMI MCKEON January 17, 2018 07:09
[2018-01-17 08:00] VITALS: BP 112/69
[2018-01-17] MEDS: Docusate 100mg cap ORAL SCH ×3 (08:34→17:01)
[2018-01-17] MEDS: Sennosides 8.6mg ORAL SCH (08:34)
[2018-01-17] MEDS: Heparin 5000 units/ml inj SUBQ SCH ×2 (08:35→20:48)
[2018-01-17] MEDS: Vitamin A&D Oint 2oz Tube TOPIC SCH ×2 (08:36→21:01)
[2018-01-17] MEDS: Levemir Flexpen SUBQ SCH ×2 (08:39→20:46)
[2018-01-17 11:47] VITALS: BP 112/62
--- NOTE | 2018-01-17 11:57 | General Progress Note ---
Assessment/Plan Problem List: (1) Hyperkalemia ICD Codes: E87.5 - Hyperkalemia SNOMED: 99024433 (2) Acidosis ICD Codes: E87.2 - Acidosis SNOMED: 71446171 (3) CO2 retention ICD Codes: E87.2 - Acidosis SNOMED: 20162957 (4) Respiratory distress ICD Codes: R06.03 - Acute respiratory distress SNOMED: 226044302 (5) COPD (chronic obstructive pulmonary disease) ICD Codes: J44.9 - Chronic obstructive pulmonary disease, unspecified SNOMED: 77987424 (6) Hepatitis C ICD Codes: B19.20 - Unspecified viral hepatitis C without hepatic coma SNOMED: 79162406 (7) Acute and chronic respiratory failure ICD Codes: J96.20 - Acute and chronic respiratory failure, unspecified whether with hypoxia or hypercapnia SNOMED: 90008217 (8) Diabetes mellitus out of control ICD Codes: E11.65 - Type 2 diabetes mellitus with hyperglycemia SNOMED: 42488084, 230969040 (9) Tachycardia ICD Codes: R00.0 - Tachycardia, unspecified SNOMED: 7942463 (10) Hypertension ICD Codes: I10 - Essential (primary) hypertension SNOMED: 39506457 Status: stable Assessment/Plan [place]opathy [place] [facility] Subjective Date patient seen: January 17, 2018 Neurologic/Psychiatric: Reports: anxiety, depressed Allergies: Coded Allergies: Shrimp (Unverified Allergy, Unknown, 12/04/17) Subjective no agitation. the pt stated that she is cold and anxious today Objective Last 24 Hour Vital Signs Date Time Temp Pulse Resp B/P (MAP) Pulse Ox O2 Delivery O2 Flow Rate FiO2 01/17/18 11:47 97.7 119 20 112/62 100 97.7 01/17/18 08:34 104 112/69 01/17/18 08:00 96.8 104 20 112/69 98 96.8 01/17/18 06:02 97.0 01/17/18 05:03 97.0 01/17/18 04:00 97.2 112 18 122/79 99 Nasal Cannula 2.0 97.2 01/17/18 00:51 97.0 102 18 105/67 100 Nasal Cannula 2.0 97.0 01/16/18 22:01 Nasal Cannula 2.0 28 01/16/18 22:01 90 18 Nasal Cannula 2.0 28 01/16/18 21:00 99 Nasal Cannula 2.0 28 01/16/18 15:55 99 Nasal Cannula 2.0 01/16/18 15:51 92 18 100 Nasal Cannula 2.0 28 01/16/18 15:44 28 01/16/18 15:44 86 18 96 Nasal Cannula 2.0 28 01/16/18 15:41 97.7 119 20 102/61 97.7 01/16/18 12:11 96.8 115 20 106/67 96.8 01/16/18 12:00 96.8 115 20 106/67 98 Nasal Cannula 2.0 96.8 Intake and Output 01/16/18 01/17/18 19:00 07:00 Intake Total 600 ml 30 ml Balance 600 ml 30 ml Intake Oral 600 ml 30 ml # Voids 3 2 # Bowel Movements 1 Laboratory Tests 01/16/18 13:40: White Blood Count 5.1, Red Blood Count 3.80L, Hemoglobin 9.8L, Hematocrit 32.4L , Mean Corpuscular Volume 85, Mean Corpuscular Hemoglobin 25.9L, Mean Corpuscular Hemoglobin Concent 30.4L, Red Cell Distribution Width 14.5, Platelet Count 92L, Mean Platelet Volume 7.6, Neutrophils (%) (Auto) , Lymphocytes (%) (Auto) , Monocytes (%) (Auto) , Eosinophils (%) (Auto) , Basophils (%) (Auto) , Differential Total Cells Counted 100, Neutrophils % ( Manual) 46, Lymphocytes % (Manual) 44, Monocytes % (Manual) 7, Eosinophils % ( Manual) 3, Basophils % (Manual) 0, Band Neutrophils 0, Platelet Estimate DecreasedL, Platelet Morphology Normal, Hypochromasia 1+, Anisocytosis 1+ Height (Feet): 5 Height (Inches): 4.00 Weight (Pounds): 138 General Appearance: WD/WN, no apparent distress, alert Neurologic: oriented x 3, responsive, depressed affect Grisel Jay M.D. January 17, 2018 11:57
--- NOTE | 2018-01-17 14:51 | Pulmonology Progress Note ---
Assessment/Plan Problems: (1) Acute and chronic respiratory failure (2) COPD (chronic obstructive pulmonary disease) (3) Hepatitis C Assessment/Plan doing the same no new events no new complains respiratory treatment BP controlled dc planning in progress pts daughter signed for hospice care, awaiting placement Subjective ROS Limited/Unobtainable: No Constitutional: Reports: no symptoms HEENT: Repors: no symptoms Respiratory: Reports: no symptoms Allergies: Coded Allergies: Shrimp (Unverified Allergy, Unknown, 12/04/17) Objective Last 24 Hour Vital Signs Date Time Temp Pulse Resp B/P (MAP) Pulse Ox O2 Delivery O2 Flow Rate FiO2 01/17/18 11:47 97.7 119 20 112/62 100 97.7 01/17/18 08:34 104 112/69 01/17/18 08:00 96.8 104 20 112/69 98 96.8 01/17/18 06:02 97.0 01/17/18 05:03 97.0 01/17/18 04:00 97.2 112 18 122/79 99 Nasal Cannula 2.0 97.2 01/17/18 00:51 97.0 102 18 105/67 100 Nasal Cannula 2.0 97.0 01/16/18 22:01 Nasal Cannula 2.0 28 01/16/18 22:01 90 18 Nasal Cannula 2.0 28 01/16/18 21:00 99 Nasal Cannula 2.0 28 01/16/18 15:55 99 Nasal Cannula 2.0 01/16/18 15:51 92 18 100 Nasal Cannula 2.0 28 01/16/18 15:44 28 01/16/18 15:44 86 18 96 Nasal Cannula 2.0 28 01/16/18 15:41 97.7 119 20 102/61 97.7 Intake and Output 01/16/18 01/17/18 19:00 07:00 Intake Total 600 ml 30 ml Balance 600 ml 30 ml Intake Oral 600 ml 30 ml # Voids 3 2 # Bowel Movements 1 Objective General Appearance: cachetic HEENT: normocephalic Respiratory/Chest: chest wall non-tender, lungs clear Breasts: no masses Cardiovascular: normal peripheral pulses, normal rate Abdomen: normal bowel sounds, soft, non tender Extremities: no cyanosis, no clubbing 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, no motor/sensory deficits Lymphatic: no neck adenopathy Current Medications Medications (Trade) Dose Ordered Sig/Hansel Route PRN Reason Start Time Stop Time Status Last Admin Dose Admin Acetaminophen (Tylenol) 650 mg Q4H PRN ORAL T>100.5 12/30/17 07:31 01/19/18 15:30 01/17/18 05:03 Albuterol/ Ipratropium (Albuterol/ Ipratropium) 3 ml Q6H PRN HHN Shortness of Breath 01/16/18 15:45 01/21/18 15:44 01/16/18 15:43 Amlodipine Besylate (Norvasc) 5 mg DAILY ORAL 12/27/17 09:00 01/20/18 08:59 01/17/18 08:34 Clonidine HCl (Catapres Tab) 0.1 mg Q4H PRN ORAL sbp more than 160mmHg 12/26/17 15:31 01/23/18 15:30 Dextrose (Dextrose 50%) 25 ml STAT PRN IV Blood Sugar btwn 60-69 mg/dL 12/26/17 15:33 01/25/18 15:32 01/04/18 16:45 Dextrose (Dextrose 50%) 50 ml STAT PRN IV BS less than 60mg/dl 12/26/17 15:34 01/25/18 15:33 Docusate Sodium (Colace) 100 mg THREE TIMES A DAY ORAL 12/26/17 18:00 01/22/18 09:59 01/17/18 12:03 Heparin Sodium (Porcine) (Heparin 5000 units/ml) 5,000 units EVERY 12 HOURS SUBQ 12/26/17 21:00 01/20/18 08:59 01/07/18 08:58 Insulin Aspart (NovoLOG) BEFORE MEALS AND HS SUBQ 12/26/17 16:30 01/22/18 20:59 01/17/18 06:52 Insulin Aspart (NovoLOG) 12 units NOVOTIAC SUBQ 01/15/18 06:30 01/23/18 07:29 01/17/18 06:52 Insulin Detemir (Levemir) 20 units EVERY 12 HOURS SUBQ 01/15/18 09:00 01/23/18 20:59 01/17/18 08:39 Mineral Oil (Fleet's Mineral Oil Enema) 133 ml EVERY OTHER DAY RECTAL 12/27/17 09:00 01/22/18 09:59 01/06/18 08:48 Nitroglycerin (Ntg) 0.4 mg Q5M X 3 DOSES PRN SL Prn Chest Pain 12/26/17 15:59 01/19/18 15:58 Ondansetron HCl (Zofran) 4 mg Q6H PRN IVP Nausea & Vomiting 12/26/17 16:00 01/19/18 15:59 01/04/18 12:11 Polyethylene Glycol (Miralax) 17 gm BEDTIME ORAL 12/26/17 21:00 01/22/18 20:59 01/14/18 21:19 Promethazine HCl/ Codeine (Phenergan with Codeine) 5 ml Q6H PRN ORAL cough 12/26/17 16:01 01/23/18 16:00 Risperidone (RisperDAL) 1 mg BID ORAL 12/26/17 18:00 01/20/18 13:14 01/17/18 08:34 Sennosides (Senokot) 1 tab DAILY ORAL 12/27/17 09:00 01/22/18 14:59 01/17/18 08:34 Vitamin A/Vitamin D (A & D Oint) 1 applic EVERY 12 HOURS TOPIC 12/26/17 21:00 01/20/18 22:59 01/17/18 08:36 Leni Watts MD January 17, 2018 14:51
--- NOTE | 2018-01-17 15:32 | Infectious Diseases Prog Note ---
Assessment/Plan Assessment/Plan Assessment: Acute hypoxic resp failure improved COPD exacerbation- -CXR: No acute disease Afebrile, no leukocytosis Recent acute hypoxic failure and PNA 11/2015 -sp cx 12/04: E.coli (davila S), P. mirabilis (davila S) Influenza sc : Neg transaminitis improving Chronic Hep C, untreated VL 3.8 m,illions Hep panel : A Imm ; B not immune HIV Neg hx of trach s/p removal COPD Dm2 HTN [facility] resident Plan: - Monitor pt off of AB Rx -12/24 SP Levaquin # 5 /5 -12/10 SP Cefepime #7 -12/06 SP Vanco #3 -Monitor CBC/BMP, temperatures -aspiration precautions Hem fup, re TCP needs treatment of Hep C as outpatient needs Hep B vaccine as outpatient Subjective Allergies: Coded Allergies: Shrimp (Unverified Allergy, Unknown, 12/04/17) Subjective afebrile off abx no leukcoytosis Objective Vital Signs Last 24 Hour Vital Signs Date Time Temp Pulse Resp B/P (MAP) Pulse Ox O2 Delivery O2 Flow Rate FiO2 01/17/18 11:47 97.7 119 20 112/62 100 97.7 01/17/18 08:34 104 112/69 01/17/18 08:00 96.8 104 20 112/69 98 96.8 01/17/18 06:02 97.0 01/17/18 05:03 97.0 01/17/18 04:00 97.2 112 18 122/79 99 Nasal Cannula 2.0 97.2 01/17/18 00:51 97.0 102 18 105/67 100 Nasal Cannula 2.0 97.0 01/16/18 22:01 Nasal Cannula 2.0 28 01/16/18 22:01 90 18 Nasal Cannula 2.0 28 01/16/18 21:00 99 Nasal Cannula 2.0 28 01/16/18 15:55 99 Nasal Cannula 2.0 01/16/18 15:51 92 18 100 Nasal Cannula 2.0 28 01/16/18 15:44 28 01/16/18 15:44 86 18 96 Nasal Cannula 2.0 28 01/16/18 15:41 97.7 119 20 102/61 97.7 Height (Feet): 5 Height (Inches): 4.00 Weight (Pounds): 138 Objective General Appearance: cachetic HEENT: normocephalic Respiratory/Chest: chest wall non-tender, lungs clear Breasts: no masses Cardiovascular: normal peripheral pulses, normal rate Abdomen: normal bowel sounds, soft, non tender Extremities: no cyanosis, no clubbing 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, no motor/sensory deficits Lymphatic: no neck adenopathy Current Medications Medications (Trade) Dose Ordered Sig/Hansel Route PRN Reason Start Time Stop Time Status Last Admin Dose Admin Acetaminophen (Tylenol) 650 mg Q4H PRN ORAL T>100.5 12/30/17 07:31 01/19/18 15:30 01/17/18 05:03 Albuterol/ Ipratropium (Albuterol/ Ipratropium) 3 ml Q6H PRN HHN Shortness of Breath 01/16/18 15:45 01/21/18 15:44 01/16/18 15:43 Amlodipine Besylate (Norvasc) 5 mg DAILY ORAL 12/27/17 09:00 01/20/18 08:59 01/17/18 08:34 Clonidine HCl (Catapres Tab) 0.1 mg Q4H PRN ORAL sbp more than 160mmHg 12/26/17 15:31 01/23/18 15:30 Dextrose (Dextrose 50%) 25 ml STAT PRN IV Blood Sugar btwn 60-69 mg/dL 12/26/17 15:33 01/25/18 15:32 01/04/18 16:45 Dextrose (Dextrose 50%) 50 ml STAT PRN IV BS less than 60mg/dl 12/26/17 15:34 01/25/18 15:33 Docusate Sodium (Colace) 100 mg THREE TIMES A DAY ORAL 12/26/17 18:00 01/22/18 09:59 01/17/18 12:03 Heparin Sodium (Porcine) (Heparin 5000 units/ml) 5,000 units EVERY 12 HOURS SUBQ 12/26/17 21:00 01/20/18 08:59 01/07/18 08:58 Insulin Aspart (NovoLOG) BEFORE MEALS AND HS SUBQ 12/26/17 16:30 01/22/18 20:59 01/17/18 06:52 Insulin Aspart (NovoLOG) 12 units NOVOTIAC SUBQ 01/15/18 06:30 01/23/18 07:29 01/17/18 06:52 Insulin Detemir (Levemir) 20 units EVERY 12 HOURS SUBQ 01/15/18 09:00 01/23/18 20:59 01/17/18 08:39 Mineral Oil (Fleet's Mineral Oil Enema) 133 ml EVERY OTHER DAY RECTAL 12/27/17 09:00 01/22/18 09:59 01/06/18 08:48 Nitroglycerin (Ntg) 0.4 mg Q5M X 3 DOSES PRN SL Prn Chest Pain 12/26/17 15:59 01/19/18 15:58 Ondansetron HCl (Zofran) 4 mg Q6H PRN IVP Nausea & Vomiting 12/26/17 16:00 01/19/18 15:59 01/04/18 12:11 Polyethylene Glycol (Miralax) 17 gm BEDTIME ORAL 12/26/17 21:00 01/22/18 20:59 01/14/18 21:19 Promethazine HCl/ Codeine (Phenergan with Codeine) 5 ml Q6H PRN ORAL cough 12/26/17 16:01 01/23/18 16:00 Risperidone (RisperDAL) 1 mg BID ORAL 12/26/17 18:00 01/20/18 13:14 01/17/18 08:34 Sennosides (Senokot) 1 tab DAILY ORAL 12/27/17 09:00 01/22/18 14:59 01/17/18 08:34 Vitamin A/Vitamin D (A & D Oint) 1 applic EVERY 12 HOURS TOPIC 12/26/17 21:00 01/20/18 22:59 01/17/18 08:36 Caterina Elizondo M.D. January 17, 2018 15:32
[2018-01-17 16:00] VITALS: BP 148/71
--- NOTE | 2018-01-17 18:04 | Internal Med Progress Note ---
Subjective Date of Service: January 17, 2018 Physician Name Estefania Mckeon Attending Physician Tone Fried MD Current Medications Medications (Trade) Dose Ordered Sig/Hansel Route PRN Reason Start Time Stop Time Status Last Admin Dose Admin Acetaminophen (Tylenol) 650 mg Q4H PRN ORAL T>100.5 12/30/17 07:31 01/19/18 15:30 01/17/18 05:03 Albuterol/ Ipratropium (Albuterol/ Ipratropium) 3 ml Q6H PRN HHN Shortness of Breath 01/16/18 15:45 01/21/18 15:44 01/16/18 15:43 Amlodipine Besylate (Norvasc) 5 mg DAILY ORAL 12/27/17 09:00 01/20/18 08:59 01/17/18 08:34 Clonidine HCl (Catapres Tab) 0.1 mg Q4H PRN ORAL sbp more than 160mmHg 12/26/17 15:31 01/23/18 15:30 Dextrose (Dextrose 50%) 25 ml STAT PRN IV Blood Sugar btwn 60-69 mg/dL 12/26/17 15:33 01/25/18 15:32 01/04/18 16:45 Dextrose (Dextrose 50%) 50 ml STAT PRN IV BS less than 60mg/dl 12/26/17 15:34 01/25/18 15:33 Docusate Sodium (Colace) 100 mg THREE TIMES A DAY ORAL 12/26/17 18:00 01/22/18 09:59 01/17/18 17:01 Heparin Sodium (Porcine) (Heparin 5000 units/ml) 5,000 units EVERY 12 HOURS SUBQ 12/26/17 21:00 01/20/18 08:59 01/07/18 08:58 Insulin Aspart (NovoLOG) BEFORE MEALS AND HS SUBQ 12/26/17 16:30 01/22/18 20:59 01/17/18 17:01 Insulin Aspart (NovoLOG) 12 units NOVOTIAC SUBQ 01/15/18 06:30 01/23/18 07:29 01/17/18 06:52 Insulin Detemir (Levemir) 20 units EVERY 12 HOURS SUBQ 01/15/18 09:00 01/23/18 20:59 01/17/18 08:39 Mineral Oil (Fleet's Mineral Oil Enema) 133 ml EVERY OTHER DAY RECTAL 12/27/17 09:00 01/22/18 09:59 01/06/18 08:48 Nitroglycerin (Ntg) 0.4 mg Q5M X 3 DOSES PRN SL Prn Chest Pain 12/26/17 15:59 01/19/18 15:58 Ondansetron HCl (Zofran) 4 mg Q6H PRN IVP Nausea & Vomiting 12/26/17 16:00 01/19/18 15:59 01/04/18 12:11 Polyethylene Glycol (Miralax) 17 gm BEDTIME ORAL 12/26/17 21:00 01/22/18 20:59 01/14/18 21:19 Promethazine HCl/ Codeine (Phenergan with Codeine) 5 ml Q6H PRN ORAL cough 12/26/17 16:01 01/23/18 16:00 Risperidone (RisperDAL) 1 mg BID ORAL 12/26/17 18:00 01/20/18 13:14 01/17/18 17:01 Sennosides (Senokot) 1 tab DAILY ORAL 12/27/17 09:00 01/22/18 14:59 01/17/18 08:34 Vitamin A/Vitamin D (A & D Oint) 1 applic EVERY 12 HOURS TOPIC 12/26/17 21:00 01/20/18 22:59 01/17/18 08:36 Allergies: Coded Allergies: Shrimp (Unverified Allergy, Unknown, 12/04/17) ROS Limited/Unobtainable: No Constitutional: Reports: no symptoms HEENT: Reports: no symptoms Cardiovascular: Reports: no symptoms Respiratory: Reports: shortness of breath Gastrointestinal/Abdominal: Reports: no symptoms Genitourinary: Reports: no symptoms Neurologic/Psychiatric: Reports: no symptoms Subjective 67 YO F admitted with respiratory failure. Now acute COPD exacerbation. Cover for [facility] Fried. Await SNF placement Objective Last Vital Signs Date Time Temp Pulse Resp B/P (MAP) Pulse Ox O2 Delivery O2 Flow Rate FiO2 01/17/18 16:00 97.9 128 20 148/71 97 97.9 01/17/18 04:00 Nasal Cannula 2.0 01/16/18 22:01 28 Intake and Output 01/16/18 01/17/18 19:00 07:00 Intake Total 600 ml 30 ml Balance 600 ml 30 ml Intake Oral 600 ml 30 ml # Voids 3 2 # Bowel Movements 1 Objective General Appearance: WD/WN, no apparent distress, alert EENT: PERRL/EOMI, normal ENT inspection Neck: non-tender, normal alignment, supple Cardiovascular: normal peripheral pulses, normal rate, regular rhythm, no gallop/murmur, no JVD Respiratory/Chest: respiratory distress, crackles/rales, rhonchi - bilaterally , expiratory wheezing Abdomen: normal bowel sounds, non tender, soft, no organomegaly, no mass Edema: trace edema 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 (3) HTN (hypertension) Assessment & Plan: Continue norvasc (4) Respiratory distress (5) COPD (chronic obstructive pulmonary disease) Assessment & Plan: See pulmonary note. (6) Hepatitis C Assessment/Plan Discharge planning: halfway facility when bed available. ESTEFANIA MCKEON January 17, 2018 18:04
[2018-01-17] MEDS: Albuterol/Ipratropium 3ml neb HHN PRN (19:34)
[2018-01-17 20:00] VITALS: BP 100/65
[2018-01-17] MEDS: Miralax 17gm pkt ORAL SCH (20:43)
--- NOTE | 2018-01-17 23:33 | General Progress Note ---
Assessment/Plan Assessment/Plan #. Anemia due to underlying chronic disease. Mild at this time. --> Continue to closely monitor. Has been stable. --> Blood transfusion not required unless symptomatic or hgb <7 --> Reviewed anemia workup. Iron 110, TIBC 230, Ferritin 90, B12 821, Folate 6.6 , TSH 1.4 #. Thrombocytopenia, secondary to hepatitis C --> Hep A and C antibody test (+) --> Monitor for improvement. Transfuse if platelets <20k #. Leukopenia, likely secondary to hepatitis C, currently improved. --> No leukocytosis is noted. The patient has been afebrile. --> Resolved at this time. #. Tachycardia. --> Persistent. Monitor for improvement. #. Acute on hypoxic respiratory failure, status post tracheostomy, improved. #. Hepatitis C. Management as an outpatient. --> Appreciate Infectious Disease service evaluation. #. Hypertension. Systolic blood pressure goal less than 140. --> Improved. #. COPD. DC Planning. Awaiting placement. Subjective Date patient seen: January 16, 2018 Constitutional: Denies: no symptoms, chills, diaphoresis, fever, malaise, weakness, other HEENT: Denies: no symptoms, eye pain, blurred vision, tearing, double vision, ear pain, ear discharge, nose pain, nose congestion, throat pain, throat swelling, mouth pain, mouth swelling, other Cardiovascular: Denies: no symptoms, chest pain, edema, irregular heart rate, lightheadedness, palpitations, syncope, other Respiratory: Denies: no symptoms, cough, orthopnea, shortness of breath, SOB with excertion, SOB at rest, sputum, stridor, wheezing, other Gastrointestinal/Abdominal: Denies: no symptoms, abdomen distended, abdominal pain, black stools, tarry stools, blood in stool, constipated, diarrhea, difficulty swallowing, nausea, poor appetite, poor fluid intake, rectal bleeding , vomiting, other Genitourinary: Denies: no symptoms, burning, discharge, frequency, flank pain, hematuria, incontinence, pain, urgency, other Neurologic/Psychiatric: Denies: no symptoms, anxiety, depressed, emotional problems, headache, numbness, paresthesia, pre-existing deficit, seizure, tingling, tremors, weakness, other Endocrine: Denies: no symptoms, excessive sweating, flushing, intolerance to cold, intolerance to heat, increased hunger, increased thirst, increased urine, unexplained weight gain, unexplained weight loss, other Hematologic/Lymphatic: Reports: anemia Allergies: Coded Allergies: Shrimp (Unverified Allergy, Unknown, 12/04/17) Subjective Still tachycardic. No acute medical distress. Pending placement. Objective Last 24 Hour Vital Signs Date Time Temp Pulse Resp B/P (MAP) Pulse Ox O2 Delivery O2 Flow Rate FiO2 01/17/18 20:00 97.9 118 18 100/65 100 97.9 01/17/18 19:15 114 22 100 Nasal Cannula 2.0 28 01/17/18 19:15 99 Nasal Cannula 2.0 28 01/17/18 19:15 114 22 Nasal Cannula 2.0 28 01/17/18 19:15 Nasal Cannula 2.0 28 01/17/18 19:10 118 24 99 Nasal Cannula 2.0 28 01/17/18 19:10 28 01/17/18 16:00 97.9 128 20 148/71 97 97.9 01/17/18 11:47 97.7 119 20 112/62 100 97.7 01/17/18 08:34 104 112/69 01/17/18 08:00 96.8 104 20 112/69 98 96.8 01/17/18 06:02 97.0 01/17/18 05:03 97.0 01/17/18 04:00 97.2 112 18 122/79 99 Nasal Cannula 2.0 97.2 01/17/18 00:51 97.0 102 18 105/67 100 Nasal Cannula 2.0 97.0 Intake and Output 01/16/18 01/17/18 19:00 07:00 Intake Total 600 ml 30 ml Balance 600 ml 30 ml Intake Oral 600 ml 30 ml # Voids 3 2 # Bowel Movements 1 Height (Feet): 5 Height (Inches): 4.00 Weight (Pounds): 138 General Appearance: no apparent distress Cardiovascular: tachycardia Respiratory/Chest: decreased breath sounds Abdomen: normal bowel sounds, non tender Anuj Alfaro MD January 17, 2018 23:33
[2018-01-18] VITALS: BP 102/66
[2018-01-18 04:00] VITALS: BP 116/65
[2018-01-18] MEDS: NovoLOG Insulin Flexpen SUBQ SCH ×5 (06:19→21:35)
[2018-01-18 07:11] LABS: EOSINOPHILS % (AUTO) 0.8 % (0.0-3.0); HEMOGLOBIN 9.4 G/DL (12.0-16.0); LYMPHOCYTES % (AUTO) 47.5 % (20.0-45.0); MEAN CORPUSCULAR VOLUME 85 FL (80-99); MONOCYTES % (AUTO) 9.1 % (1.0-10.0); NEUTROPHILS % (AUTO) 41.6 % (45.0-75.0); PLATELET COUNT 125 K/UL (150-450); RED BLOOD COUNT 3.54 M/UL (4.20-5.40); RED CELL DISTRIBUTION WIDTH 14.5 % (11.6-14.8); WHITE BLOOD COUNT 4.8 K/UL (4.8-10.8)
--- NOTE | 2018-01-18 07:12 | General Progress Note ---
Assessment/Plan Problem List: (1) Diabetes mellitus out of control ICD Codes: E11.65 - Type 2 diabetes mellitus with hyperglycemia SNOMED: 72411499, 269862901 (2) COPD (chronic obstructive pulmonary disease) ICD Codes: J44.9 - Chronic obstructive pulmonary disease, unspecified SNOMED: 13676024 (3) Acute and chronic respiratory failure ICD Codes: J96.20 - Acute and chronic respiratory failure, unspecified whether with hypoxia or hypercapnia SNOMED: 05748993 Assessment/Plan continue Levemir 20 units bid continue Novolog 12 units ac tid continue NISS Subjective Allergies: Coded Allergies: Shrimp (Unverified Allergy, Unknown, 12/04/17) All Systems: reviewed and negative except above Subjective events noted Objective Last 24 Hour Vital Signs Date Time Temp Pulse Resp B/P (MAP) Pulse Ox O2 Delivery O2 Flow Rate FiO2 01/18/18 04:00 97.5 108 18 116/65 96 97.5 01/18/18 00:00 97.9 112 18 102/66 97 97.9 01/17/18 20:00 97.9 118 18 100/65 100 97.9 01/17/18 19:15 114 22 100 Nasal Cannula 2.0 28 01/17/18 19:15 99 Nasal Cannula 2.0 28 01/17/18 19:15 114 22 Nasal Cannula 2.0 28 01/17/18 19:15 Nasal Cannula 2.0 28 01/17/18 19:10 118 24 99 Nasal Cannula 2.0 28 01/17/18 19:10 28 01/17/18 16:00 97.9 128 20 148/71 97 97.9 01/17/18 11:47 97.7 119 20 112/62 100 97.7 01/17/18 08:34 104 112/69 01/17/18 08:00 96.8 104 20 112/69 98 96.8 Intake and Output 01/17/18 01/18/18 19:00 07:00 Intake Total 240 ml 220 ml Output Total 700 ml Balance -460 ml 220 ml Intake Oral 240 ml 220 ml Output Urine Total 700 ml # Voids 4 # Bowel Movements 2 1 Laboratory Tests 01/18/18 05:00: White Blood Count [Pending], Red Blood Count [Pending], Hemoglobin [Pending], Hematocrit [Pending], Mean Corpuscular Volume [Pending], Mean Corpuscular Hemoglobin [Pending], Mean Corpuscular Hemoglobin Concent [Pending], Red Cell Distribution Width [Pending], Platelet Count [Pending], Mean Platelet Volume [ Pending], Neutrophils (%) (Auto) [Pending], Lymphocytes (%) (Auto) [Pending], Monocytes (%) (Auto) [Pending], Eosinophils (%) (Auto) [Pending], Basophils (%) (Auto) [Pending] Height (Feet): 5 Height (Inches): 4.00 Weight (Pounds): 138 General Appearance: no apparent distress Neck: normal alignment Cardiovascular: normal rate Respiratory/Chest: decreased breath sounds Abdomen: normal bowel sounds Objective Current Medications Medications (Trade) Dose Ordered Sig/Hansel Route PRN Reason Start Time Stop Time Status Last Admin Dose Admin Acetaminophen (Tylenol) 650 mg Q4H PRN ORAL T>100.5 12/30/17 07:31 01/19/18 15:30 01/17/18 05:03 Albuterol/ Ipratropium (Albuterol/ Ipratropium) 3 ml Q6H PRN HHN Shortness of Breath 01/16/18 15:45 01/21/18 15:44 01/17/18 19:34 Amlodipine Besylate (Norvasc) 5 mg DAILY ORAL 12/27/17 09:00 01/20/18 08:59 01/17/18 08:34 Clonidine HCl (Catapres Tab) 0.1 mg Q4H PRN ORAL sbp more than 160mmHg 12/26/17 15:31 01/23/18 15:30 Dextrose (Dextrose 50%) 25 ml STAT PRN IV Blood Sugar btwn 60-69 mg/dL 12/26/17 15:33 01/25/18 15:32 01/04/18 16:45 Dextrose (Dextrose 50%) 50 ml STAT PRN IV BS less than 60mg/dl 12/26/17 15:34 01/25/18 15:33 Docusate Sodium (Colace) 100 mg THREE TIMES A DAY ORAL 12/26/17 18:00 01/22/18 09:59 01/17/18 17:01 Heparin Sodium (Porcine) (Heparin 5000 units/ml) 5,000 units EVERY 12 HOURS SUBQ 12/26/17 21:00 01/20/18 08:59 01/07/18 08:58 Insulin Aspart (NovoLOG) BEFORE MEALS AND HS SUBQ 12/26/17 16:30 01/22/18 20:59 01/18/18 06:19 Insulin Aspart (NovoLOG) 12 units NOVOTIAC SUBQ 01/15/18 06:30 01/23/18 07:29 01/17/18 20:51 Insulin Detemir (Levemir) 20 units EVERY 12 HOURS SUBQ 01/15/18 09:00 01/23/18 20:59 01/17/18 20:46 Mineral Oil (Fleet's Mineral Oil Enema) 133 ml EVERY OTHER DAY RECTAL 12/27/17 09:00 01/22/18 09:59 01/06/18 08:48 Nitroglycerin (Ntg) 0.4 mg Q5M X 3 DOSES PRN SL Prn Chest Pain 12/26/17 15:59 01/19/18 15:58 Ondansetron HCl (Zofran) 4 mg Q6H PRN IVP Nausea & Vomiting 12/26/17 16:00 01/19/18 15:59 01/04/18 12:11 Polyethylene Glycol (Miralax) 17 gm BEDTIME ORAL 12/26/17 21:00 01/22/18 20:59 01/17/18 20:43 Promethazine HCl/ Codeine (Phenergan with Codeine) 5 ml Q6H PRN ORAL cough 12/26/17 16:01 01/23/18 16:00 Risperidone (RisperDAL) 1 mg BID ORAL 12/26/17 18:00 01/20/18 13:14 01/17/18 17:01 Sennosides (Senokot) 1 tab DAILY ORAL 12/27/17 09:00 01/22/18 14:59 01/17/18 08:34 Vitamin A/Vitamin D (A & D Oint) 1 applic EVERY 12 HOURS TOPIC 12/26/17 21:00 01/20/18 22:59 01/17/18 21:01 Item Value Date Time Bedside Blood Glucose 166 mg/dl H 01/18/18 0624 Bedside Blood Glucose 179 mg/dl H 01/17/182057 Bedside Blood Glucose 305 mg/dl H 01/17/18 1701 Bedside Blood Glucose 96 mg/dl 01/17/18 1150 Bedside Blood Glucose 185 mg/dl H 01/17/18 0839 Bedside Blood Glucose 185 mg/dl H 01/17/18 0652 FEMI MCKEON January 18, 2018 07:12
[2018-01-18] MEDS: Sennosides 8.6mg ORAL SCH (08:05)
[2018-01-18] MEDS: Vitamin A&D Oint 2oz Tube TOPIC SCH ×2 (08:06→21:33)
[2018-01-18] MEDS: Fleet's Mineral Oil Enema RECTAL SCH (08:06)
[2018-01-18] MEDS: Docusate 100mg cap ORAL SCH ×3 (08:07→17:25)
[2018-01-18] MEDS: Heparin 5000 units/ml inj SUBQ SCH ×2 (08:09→20:51)
[2018-01-18] MEDS: Levemir Flexpen SUBQ SCH ×2 (08:11→21:36)
[2018-01-18 08:36] VITALS: BP 105/62
--- NOTE | 2018-01-18 11:31 | General Progress Note ---
Assessment/Plan Problem List: (1) Hyperkalemia ICD Codes: E87.5 - Hyperkalemia SNOMED: 91194215 (2) Acidosis ICD Codes: E87.2 - Acidosis SNOMED: 78035658 (3) CO2 retention ICD Codes: E87.2 - Acidosis SNOMED: 73458440 (4) Respiratory distress ICD Codes: R06.03 - Acute respiratory distress SNOMED: 944424282 (5) COPD (chronic obstructive pulmonary disease) ICD Codes: J44.9 - Chronic obstructive pulmonary disease, unspecified SNOMED: 39388319 (6) Hepatitis C ICD Codes: B19.20 - Unspecified viral hepatitis C without hepatic coma SNOMED: 81125058 (7) Acute and chronic respiratory failure ICD Codes: J96.20 - Acute and chronic respiratory failure, unspecified whether with hypoxia or hypercapnia SNOMED: 39114897 (8) Diabetes mellitus out of control ICD Codes: E11.65 - Type 2 diabetes mellitus with hyperglycemia SNOMED: 31489438, 453648486 (9) Tachycardia ICD Codes: R00.0 - Tachycardia, unspecified SNOMED: 4093812 (10) Hypertension ICD Codes: I10 - Essential (primary) hypertension SNOMED: 29830442 Status: stable, progressing Assessment/Plan [place]opathy [place] [facility] [place] Subjective Date patient seen: January 18, 2018 Neurologic/Psychiatric: Reports: anxiety, depressed, emotional problems Allergies: Coded Allergies: Shrimp (Unverified Allergy, Unknown, 12/04/17) Subjective no agitation. the pt was is somewhat confused. Objective Last 24 Hour Vital Signs Date Time Temp Pulse Resp B/P (MAP) Pulse Ox O2 Delivery O2 Flow Rate FiO2 01/18/18 08:36 97.9 102 20 105/62 97 97.9 01/18/18 04:00 97.5 108 18 116/65 96 97.5 01/18/18 00:00 97.9 112 18 102/66 97 97.9 01/17/18 20:00 97.9 118 18 100/65 100 97.9 01/17/18 19:15 114 22 100 Nasal Cannula 2.0 28 01/17/18 19:15 99 Nasal Cannula 2.0 28 01/17/18 19:15 114 22 Nasal Cannula 2.0 28 01/17/18 19:15 Nasal Cannula 2.0 28 01/17/18 19:10 118 24 99 Nasal Cannula 2.0 28 01/17/18 19:10 28 01/17/18 16:00 97.9 128 20 148/71 97 97.9 01/17/18 11:47 97.7 119 20 112/62 100 97.7 Intake and Output 01/17/18 01/18/18 19:00 07:00 Intake Total 240 ml 220 ml Output Total 700 ml Balance -460 ml 220 ml Intake Oral 240 ml 220 ml Output Urine Total 700 ml # Voids 4 # Bowel Movements 2 1 Laboratory Tests 01/18/18 05:00: White Blood Count 4.8, Red Blood Count 3.54L, Hemoglobin 9.4L, Hematocrit 30.0L , Mean Corpuscular Volume 85, Mean Corpuscular Hemoglobin 26.5L, Mean Corpuscular Hemoglobin Concent 31.2L, Red Cell Distribution Width 14.5, Platelet Count 125L, Mean Platelet Volume 7.3, Neutrophils (%) (Auto) 41.6L, Lymphocytes (%) (Auto) 47.5H, Monocytes (%) (Auto) 9.1, Eosinophils (%) (Auto) 0.8, Basophils (%) (Auto) 1.0 Height (Feet): 5 Height (Inches): 4.00 Weight (Pounds): 138 General Appearance: WD/WN, no apparent distress, alert Neurologic: alert, oriented x 3, responsive, depressed affect Grisel Jay M.D. January 18, 2018 11:31
[2018-01-18 11:50] VITALS: BP 126/75
--- NOTE | 2018-01-18 15:15 | Infectious Diseases Prog Note ---
Assessment/Plan Assessment/Plan Assessment: Acute hypoxic resp failure improved COPD exacerbation- -CXR: No acute disease Afebrile, no leukocytosis Recent acute hypoxic failure and PNA 11/2015 -sp cx 12/04: E.coli (davila S), P. mirabilis (davila S) Influenza sc : Neg transaminitis improving Chronic Hep C, untreated VL 3.8 m,illions Hep panel : A Imm ; B not immune HIV Neg hx of trach s/p removal COPD Dm2 HTN [facility] resident Plan: - Monitor pt off of AB Rx -12/24 SP Levaquin # 5 /5 -12/10 SP Cefepime #7 -12/06 SP Vanco #3 -Monitor CBC/BMP, temperatures -aspiration precautions Hem fup, re TCP needs treatment of Hep C as outpatient needs Hep B vaccine as outpatient Subjective Allergies: Coded Allergies: Shrimp (Unverified Allergy, Unknown, 12/04/17) Subjective afebrile off abx no leukcoytosis Objective Vital Signs Last 24 Hour Vital Signs Date Time Temp Pulse Resp B/P (MAP) Pulse Ox O2 Delivery O2 Flow Rate FiO2 01/18/18 11:50 98.2 118 20 126/75 94 98.2 01/18/18 08:36 97.9 102 20 105/62 97 97.9 01/18/18 08:28 Nasal Cannula 2.0 01/18/18 08:27 99 Nasal Cannula 2.0 01/18/18 08:26 61 20 Nasal Cannula 2.0 28 01/18/18 04:00 97.5 108 18 116/65 96 97.5 01/18/18 00:00 97.9 112 18 102/66 97 97.9 01/17/18 20:00 97.9 118 18 100/65 100 97.9 01/17/18 19:15 114 22 100 Nasal Cannula 2.0 28 01/17/18 19:15 99 Nasal Cannula 2.0 28 01/17/18 19:15 114 22 Nasal Cannula 2.0 28 01/17/18 19:15 Nasal Cannula 2.0 28 01/17/18 19:10 118 24 99 Nasal Cannula 2.0 28 01/17/18 19:10 28 01/17/18 16:00 97.9 128 20 148/71 97 97.9 Height (Feet): 5 Height (Inches): 4.00 Weight (Pounds): 138 Objective General Appearance: cachetic HEENT: normocephalic Respiratory/Chest: chest wall non-tender, lungs clear Breasts: no masses Cardiovascular: normal peripheral pulses, normal rate Abdomen: normal bowel sounds, soft, non tender Extremities: no cyanosis, no clubbing 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, no motor/sensory deficits Lymphatic: no neck adenopathy Laboratory Tests Test 01/18/18 05:00 White Blood Count 4.8 K/UL (4.8-10.8) Red Blood Count 3.54 M/UL (4.20-5.40) L Hemoglobin 9.4 G/DL (12.0-16.0) L Hematocrit 30.0 % (37.0-47.0) L Mean Corpuscular Volume 85 FL (80-99) Mean Corpuscular Hemoglobin 26.5 PG (27.0-31.0) L Mean Corpuscular Hemoglobin Concent 31.2 G/DL (32.0-36.0) L Red Cell Distribution Width 14.5 % (11.6-14.8) Platelet Count 125 K/UL (150-450) L Mean Platelet Volume 7.3 FL (6.5-10.1) Neutrophils (%) (Auto) 41.6 % (45.0-75.0) L Lymphocytes (%) (Auto) 47.5 % (20.0-45.0) H Monocytes (%) (Auto) 9.1 % (1.0-10.0) Eosinophils (%) (Auto) 0.8 % (0.0-3.0) Basophils (%) (Auto) 1.0 % (0.0-2.0) Current Medications Medications (Trade) Dose Ordered Sig/Hansel Route PRN Reason Start Time Stop Time Status Last Admin Dose Admin Acetaminophen (Tylenol) 650 mg Q4H PRN ORAL T>100.5 12/30/17 07:31 01/19/18 15:30 01/17/18 05:03 Albuterol/ Ipratropium (Albuterol/ Ipratropium) 3 ml Q6H PRN HHN Shortness of Breath 01/16/18 15:45 01/21/18 15:44 01/17/18 19:34 Amlodipine Besylate (Norvasc) 5 mg DAILY ORAL 12/27/17 09:00 01/20/18 08:59 01/17/18 08:34 Clonidine HCl (Catapres Tab) 0.1 mg Q4H PRN ORAL sbp more than 160mmHg 12/26/17 15:31 01/23/18 15:30 Dextrose (Dextrose 50%) 25 ml STAT PRN IV Blood Sugar btwn 60-69 mg/dL 12/26/17 15:33 01/25/18 15:32 01/04/18 16:45 Dextrose (Dextrose 50%) 50 ml STAT PRN IV BS less than 60mg/dl 12/26/17 15:34 01/25/18 15:33 Docusate Sodium (Colace) 100 mg THREE TIMES A DAY ORAL 12/26/17 18:00 01/22/18 09:59 01/17/18 17:01 Heparin Sodium (Porcine) (Heparin 5000 units/ml) 5,000 units EVERY 12 HOURS SUBQ 12/26/17 21:00 01/20/18 08:59 01/07/18 08:58 Insulin Aspart (NovoLOG) BEFORE MEALS AND HS SUBQ 12/26/17 16:30 01/22/18 20:59 01/18/18 11:58 Insulin Aspart (NovoLOG) 12 units NOVOTIAC SUBQ 01/15/18 06:30 01/23/18 07:29 01/17/18 20:51 Insulin Detemir (Levemir) 20 units EVERY 12 HOURS SUBQ 01/15/18 09:00 01/23/18 20:59 01/18/18 08:11 Mineral Oil (Fleet's Mineral Oil Enema) 133 ml EVERY OTHER DAY RECTAL 12/27/17 09:00 01/22/18 09:59 01/06/18 08:48 Nitroglycerin (Ntg) 0.4 mg Q5M X 3 DOSES PRN SL Prn Chest Pain 12/26/17 15:59 01/19/18 15:58 Ondansetron HCl (Zofran) 4 mg Q6H PRN IVP Nausea & Vomiting 12/26/17 16:00 01/19/18 15:59 01/04/18 12:11 Polyethylene Glycol (Miralax) 17 gm BEDTIME ORAL 12/26/17 21:00 01/22/18 20:59 01/17/18 20:43 Promethazine HCl/ Codeine (Phenergan with Codeine) 5 ml Q6H PRN ORAL cough 12/26/17 16:01 01/23/18 16:00 Risperidone (RisperDAL) 1 mg BID ORAL 12/26/17 18:00 01/20/18 13:14 01/18/18 08:05 Sennosides (Senokot) 1 tab DAILY ORAL 12/27/17 09:00 01/22/18 14:59 01/18/18 08:05 Vitamin A/Vitamin D (A & D Oint) 1 applic EVERY 12 HOURS TOPIC 12/26/17 21:00 01/20/18 22:59 01/18/18 08:06 Caterina Elizondo M.D. January 18, 2018 15:15
--- NOTE | 2018-01-18 15:47 | Pulmonology Progress Note ---
Assessment/Plan Problems: (1) Acute and chronic respiratory failure (2) COPD (chronic obstructive pulmonary disease) (3) Hepatitis C Assessment/Plan doing the same no new events no new complains respiratory treatment BP controlled dc planning in progress pts daughter signed for hospice care, awaiting placement Subjective ROS Limited/Unobtainable: No Allergies: Coded Allergies: Shrimp (Unverified Allergy, Unknown, 12/04/17) Objective Last 24 Hour Vital Signs Date Time Temp Pulse Resp B/P (MAP) Pulse Ox O2 Delivery O2 Flow Rate FiO2 01/18/18 11:50 98.2 118 20 126/75 94 98.2 01/18/18 08:36 97.9 102 20 105/62 97 97.9 01/18/18 08:28 Nasal Cannula 2.0 01/18/18 08:27 99 Nasal Cannula 2.0 28 01/18/18 08:26 61 20 Nasal Cannula 2.0 28 01/18/18 04:00 97.5 108 18 116/65 96 97.5 01/18/18 00:00 97.9 112 18 102/66 97 97.9 01/17/18 20:00 97.9 118 18 100/65 100 97.9 01/17/18 19:15 114 22 100 Nasal Cannula 2.0 28 01/17/18 19:15 99 Nasal Cannula 2.0 28 01/17/18 19:15 114 22 Nasal Cannula 2.0 28 01/17/18 19:15 Nasal Cannula 2.0 28 01/17/18 19:10 118 24 99 Nasal Cannula 2.0 28 01/17/18 19:10 28 01/17/18 16:00 97.9 128 20 148/71 97 97.9 Intake and Output 01/17/18 01/18/18 19:00 07:00 Intake Total 240 ml 220 ml Output Total 700 ml Balance -460 ml 220 ml Intake Oral 240 ml 220 ml Output Urine Total 700 ml # Voids 4 # Bowel Movements 2 1 Objective General Appearance: cachetic HEENT: normocephalic Respiratory/Chest: chest wall non-tender, lungs clear Breasts: no masses Cardiovascular: normal peripheral pulses, normal rate Abdomen: normal bowel sounds, soft, non tender Extremities: no cyanosis, no clubbing 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, no motor/sensory deficits Lymphatic: no neck adenopathy Laboratory Tests 01/18/18 05:00: White Blood Count 4.8, Red Blood Count 3.54L, Hemoglobin 9.4L, Hematocrit 30.0L , Mean Corpuscular Volume 85, Mean Corpuscular Hemoglobin 26.5L, Mean Corpuscular Hemoglobin Concent 31.2L, Red Cell Distribution Width 14.5, Platelet Count 125L, Mean Platelet Volume 7.3, Neutrophils (%) (Auto) 41.6L, Lymphocytes (%) (Auto) 47.5H, Monocytes (%) (Auto) 9.1, Eosinophils (%) (Auto) 0.8, Basophils (%) (Auto) 1.0 Current Medications Medications (Trade) Dose Ordered Sig/Hansel Route PRN Reason Start Time Stop Time Status Last Admin Dose Admin Acetaminophen (Tylenol) 650 mg Q4H PRN ORAL T>100.5 12/30/17 07:31 01/19/18 15:30 01/17/18 05:03 Albuterol/ Ipratropium (Albuterol/ Ipratropium) 3 ml Q6H PRN HHN Shortness of Breath 01/16/18 15:45 01/21/18 15:44 01/17/18 19:34 Amlodipine Besylate (Norvasc) 5 mg DAILY ORAL 12/27/17 09:00 01/20/18 08:59 01/17/18 08:34 Clonidine HCl (Catapres Tab) 0.1 mg Q4H PRN ORAL sbp more than 160mmHg 12/26/17 15:31 01/23/18 15:30 Dextrose (Dextrose 50%) 25 ml STAT PRN IV Blood Sugar btwn 60-69 mg/dL 12/26/17 15:33 01/25/18 15:32 01/04/18 16:45 Dextrose (Dextrose 50%) 50 ml STAT PRN IV BS less than 60mg/dl 12/26/17 15:34 01/25/18 15:33 Docusate Sodium (Colace) 100 mg THREE TIMES A DAY ORAL 12/26/17 18:00 01/22/18 09:59 01/17/18 17:01 Heparin Sodium (Porcine) (Heparin 5000 units/ml) 5,000 units EVERY 12 HOURS SUBQ 12/26/17 21:00 5/6/18 08:59 01/07/18 08:58 Insulin Aspart (NovoLOG) BEFORE MEALS AND HS SUBQ 12/26/17 16:30 01/22/18 20:59 01/18/18 11:58 Insulin Aspart (NovoLOG) 12 units NOVOTIAC SUBQ 01/15/18 06:30 01/23/18 07:29 01/17/18 20:51 Insulin Detemir (Levemir) 20 units EVERY 12 HOURS SUBQ 01/15/18 09:00 01/23/18 20:59 01/18/18 08:11 Mineral Oil (Fleet's Mineral Oil Enema) 133 ml EVERY OTHER DAY RECTAL 12/27/17 09:00 01/22/18 09:59 01/06/18 08:48 Nitroglycerin (Ntg) 0.4 mg Q5M X 3 DOSES PRN SL Prn Chest Pain 12/26/17 15:59 01/19/18 15:58 Ondansetron HCl (Zofran) 4 mg Q6H PRN IVP Nausea & Vomiting 12/26/17 16:00 01/19/18 15:59 01/04/18 12:11 Polyethylene Glycol (Miralax) 17 gm BEDTIME ORAL 12/26/17 21:00 01/22/18 20:59 01/17/18 20:43 Promethazine HCl/ Codeine (Phenergan with Codeine) 5 ml Q6H PRN ORAL cough 12/26/17 16:01 01/23/18 16:00 Risperidone (RisperDAL) 1 mg BID ORAL 12/26/17 18:00 01/20/18 13:14 01/18/18 08:05 Sennosides (Senokot) 1 tab DAILY ORAL 12/27/17 09:00 01/22/18 14:59 01/18/18 08:05 Vitamin A/Vitamin D (A & D Oint) 1 applic EVERY 12 HOURS TOPIC 12/26/17 21:00 01/20/18 22:59 01/18/18 08:06 Leni Watts MD January 18, 2018 15:47
[2018-01-18 15:50] VITALS: BP 123/77
--- NOTE | 2018-01-18 16:02 | Internal Med Progress Note ---
Subjective Date of Service: January 18, 2018 Physician Name Estefania Mckeon Attending Physician Tone Fried MD Current Medications Medications (Trade) Dose Ordered Sig/Hansel Route PRN Reason Start Time Stop Time Status Last Admin Dose Admin Acetaminophen (Tylenol) 650 mg Q4H PRN ORAL T>100.5 12/30/17 07:31 01/19/18 15:30 01/17/18 05:03 Albuterol/ Ipratropium (Albuterol/ Ipratropium) 3 ml Q6H PRN HHN Shortness of Breath 01/16/18 15:45 01/21/18 15:44 01/17/18 19:34 Amlodipine Besylate (Norvasc) 5 mg DAILY ORAL 12/27/17 09:00 01/20/18 08:59 01/17/18 08:34 Clonidine HCl (Catapres Tab) 0.1 mg Q4H PRN ORAL sbp more than 160mmHg 12/26/17 15:31 01/23/18 15:30 Dextrose (Dextrose 50%) 25 ml STAT PRN IV Blood Sugar btwn 60-69 mg/dL 12/26/17 15:33 01/25/18 15:32 01/04/18 16:45 Dextrose (Dextrose 50%) 50 ml STAT PRN IV BS less than 60mg/dl 12/26/17 15:34 01/25/18 15:33 Docusate Sodium (Colace) 100 mg THREE TIMES A DAY ORAL 12/26/17 18:00 01/22/18 09:59 01/17/18 17:01 Heparin Sodium (Porcine) (Heparin 5000 units/ml) 5,000 units EVERY 12 HOURS SUBQ 12/26/17 21:00 01/20/18 08:59 01/07/18 08:58 Insulin Aspart (NovoLOG) BEFORE MEALS AND HS SUBQ 12/26/17 16:30 01/22/18 20:59 01/18/18 11:58 Insulin Aspart (NovoLOG) 12 units NOVOTIAC SUBQ 01/15/18 06:30 01/23/18 07:29 01/17/18 20:51 Insulin Detemir (Levemir) 20 units EVERY 12 HOURS SUBQ 01/15/18 09:00 01/23/18 20:59 01/18/18 08:11 Lorazepam (Ativan) 0.5 mg Q4H PRN ORAL For Anxiety 01/18/18 16:00 01/25/18 15:59 Mineral Oil (Fleet's Mineral Oil Enema) 133 ml EVERY OTHER DAY RECTAL 12/27/17 09:00 01/22/18 09:59 01/06/18 08:48 Nitroglycerin (Ntg) 0.4 mg Q5M X 3 DOSES PRN SL Prn Chest Pain 12/26/17 15:59 01/19/18 15:58 Ondansetron HCl (Zofran) 4 mg Q6H PRN IVP Nausea & Vomiting 12/26/17 16:00 01/19/18 15:59 01/04/18 12:11 Polyethylene Glycol (Miralax) 17 gm BEDTIME ORAL 12/26/17 21:00 01/22/18 20:59 01/17/18 20:43 Promethazine HCl/ Codeine (Phenergan with Codeine) 5 ml Q6H PRN ORAL cough 12/26/17 16:01 01/23/18 16:00 Risperidone (RisperDAL) 1 mg BID ORAL 12/26/17 18:00 01/20/18 13:14 01/18/18 08:05 Sennosides (Senokot) 1 tab DAILY ORAL 12/27/17 09:00 01/22/18 14:59 01/18/18 08:05 Vitamin A/Vitamin D (A & D Oint) 1 applic EVERY 12 HOURS TOPIC 12/26/17 21:00 01/20/18 22:59 01/18/18 08:06 Allergies: Coded Allergies: Shrimp (Unverified Allergy, Unknown, 12/04/17) ROS Limited/Unobtainable: No Constitutional: Reports: no symptoms HEENT: Reports: no symptoms Cardiovascular: Reports: no symptoms Respiratory: Reports: shortness of breath Gastrointestinal/Abdominal: Reports: no symptoms Genitourinary: Reports: no symptoms Neurologic/Psychiatric: Reports: no symptoms Subjective 67 YO F admitted with respiratory failure. Now acute COPD exacerbation. Cover for [facility]. Await SNF placement Objective Last Vital Signs Date Time Temp Pulse Resp B/P (MAP) Pulse Ox O2 Delivery O2 Flow Rate FiO2 01/18/18 15:50 97.7 127 20 123/77 96 97.7 01/18/18 08:28 Nasal Cannula 2.0 01/18/18 08:27 28 Laboratory Tests Test 01/18/18 05:00 White Blood Count 4.8 K/UL (4.8-10.8) Red Blood Count 3.54 M/UL (4.20-5.40) L Hemoglobin 9.4 G/DL (12.0-16.0) L Hematocrit 30.0 % (37.0-47.0) L Mean Corpuscular Volume 85 FL (80-99) Mean Corpuscular Hemoglobin 26.5 PG (27.0-31.0) L Mean Corpuscular Hemoglobin Concent 31.2 G/DL (32.0-36.0) L Red Cell Distribution Width 14.5 % (11.6-14.8) Platelet Count 125 K/UL (150-450) L Mean Platelet Volume 7.3 FL (6.5-10.1) Neutrophils (%) (Auto) 41.6 % (45.0-75.0) L Lymphocytes (%) (Auto) 47.5 % (20.0-45.0) H Monocytes (%) (Auto) 9.1 % (1.0-10.0) Eosinophils (%) (Auto) 0.8 % (0.0-3.0) Basophils (%) (Auto) 1.0 % (0.0-2.0) Intake and Output 01/17/18 01/18/18 19:00 07:00 Intake Total 240 ml 220 ml Output Total 700 ml Balance -460 ml 220 ml Intake Oral 240 ml 220 ml Output Urine Total 700 ml # Voids 4 # Bowel Movements 2 1 Objective General Appearance: WD/WN, no apparent distress, alert EENT: PERRL/EOMI, normal ENT inspection Neck: non-tender, normal alignment, supple Cardiovascular: normal peripheral pulses, normal rate, regular rhythm, no gallop/murmur, no JVD Respiratory/Chest: respiratory distress, crackles/rales, rhonchi - bilaterally , expiratory wheezing Abdomen: normal bowel sounds, non tender, soft, no organomegaly, no mass Edema: trace edema 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 (3) HTN (hypertension) Assessment & Plan: Continue norvasc (4) Respiratory distress (5) COPD (chronic obstructive pulmonary disease) Assessment & Plan: See pulmonary note. (6) Hepatitis C Assessment/Plan Discharge planning: care home facility when bed available. ESTEFANIA MCKEON January 18, 2018 16:02
--- NOTE | 2018-01-18 16:37 | General Progress Note ---
Assessment/Plan Status: stable Assessment/Plan #. Anemia due to underlying chronic disease. Mild at this time. --> Continue to closely monitor. Has been stable. --> Blood transfusion not required unless symptomatic or hgb <7 --> Reviewed anemia workup. Iron 110, TIBC 230, Ferritin 90, B12 821, Folate 6.6 , TSH 1.4 #. Thrombocytopenia, secondary to hepatitis C --> Hep A and C antibody test (+) --> Monitor for improvement. Transfuse if platelets <20k #. Leukopenia, likely secondary to hepatitis C, currently improved. --> No leukocytosis is noted. The patient has been afebrile. --> Resolved at this time. #. Tachycardia. --> Persistent. Monitor for improvement. #. Acute on hypoxic respiratory failure, status post tracheostomy, improved. #. Hepatitis C. Management as an outpatient. --> Appreciate Infectious Disease service evaluation. #. Hypertension. Systolic blood pressure goal less than 140. --> Improved. #. COPD. DC Planning. Awaiting placement. Subjective Date patient seen: January 17, 2018 Constitutional: Denies: no symptoms, chills, diaphoresis, fever, malaise, weakness, other HEENT: Denies: no symptoms, eye pain, blurred vision, tearing, double vision, ear pain, ear discharge, nose pain, nose congestion, throat pain, throat swelling, mouth pain, mouth swelling, other Cardiovascular: Denies: no symptoms, chest pain, edema, irregular heart rate, lightheadedness, palpitations, syncope, other Respiratory: Denies: no symptoms, cough, orthopnea, shortness of breath, SOB with excertion, SOB at rest, sputum, stridor, wheezing, other Allergies: Coded Allergies: Shrimp (Unverified Allergy, Unknown, 12/04/17) Subjective Patient is awake and resting in bed. Pt responsive to verbal and tactile stimuli. In no acute medical distress Objective Last 24 Hour Vital Signs Date Time Temp Pulse Resp B/P (MAP) Pulse Ox O2 Delivery O2 Flow Rate FiO2 01/18/18 15:50 97.7 127 20 123/77 96 97.7 01/18/18 11:50 98.2 118 20 126/75 94 98.2 01/18/18 08:36 97.9 102 20 105/62 97 97.9 01/18/18 08:28 Nasal Cannula 2.0 01/18/18 08:27 99 Nasal Cannula 2.0 28 01/18/18 08:26 61 20 Nasal Cannula 2.0 28 01/18/18 04:00 97.5 108 18 116/65 96 97.5 01/18/18 00:00 97.9 112 18 102/66 97 97.9 01/17/18 20:00 97.9 118 18 100/65 100 97.9 01/17/18 19:15 114 22 100 Nasal Cannula 2.0 28 01/17/18 19:15 99 Nasal Cannula 2.0 28 01/17/18 19:15 114 22 Nasal Cannula 2.0 28 01/17/18 19:15 Nasal Cannula 2.0 01/17/18 19:10 118 24 99 Nasal Cannula 2.0 01/17/18 19:10 28 Intake and Output 01/17/18 01/18/18 19:00 07:00 Intake Total 240 ml 220 ml Output Total 700 ml Balance -460 ml 220 ml Intake Oral 240 ml 220 ml Output Urine Total 700 ml # Voids 4 # Bowel Movements 2 1 Laboratory Tests 01/18/18 05:00: White Blood Count 4.8, Red Blood Count 3.54L, Hemoglobin 9.4L, Hematocrit 30.0L , Mean Corpuscular Volume 85, Mean Corpuscular Hemoglobin 26.5L, Mean Corpuscular Hemoglobin Concent 31.2L, Red Cell Distribution Width 14.5, Platelet Count 125L, Mean Platelet Volume 7.3, Neutrophils (%) (Auto) 41.6L, Lymphocytes (%) (Auto) 47.5H, Monocytes (%) (Auto) 9.1, Eosinophils (%) (Auto) 0.8, Basophils (%) (Auto) 1.0 Height (Feet): 5 Height (Inches): 4.00 Weight (Pounds): 138 General Appearance: no apparent distress EENT: PERRL/EOMI Neck: non-tender Cardiovascular: normal peripheral pulses Respiratory/Chest: lungs clear Abdomen: normal bowel sounds Anuj Alfaro MD January 18, 2018 16:37
[2018-01-18] MEDS: LORazepam 0.5mg tab ORAL PRN ×2 (16:46→21:34)
[2018-01-18 20:00] VITALS: BP 113/59
[2018-01-18] MEDS: Miralax 17gm pkt ORAL SCH (20:50)
[2018-01-19] VITALS: BP 120/76
[2018-01-19 04:00] VITALS: BP 112/69
[2018-01-19] MEDS: NovoLOG Insulin Flexpen SUBQ SCH ×7 (06:08→20:42)
[2018-01-19 08:01] VITALS: BP 134/77
[2018-01-19] MEDS: Heparin 5000 units/ml inj SUBQ SCH ×3 (08:35→20:41)
[2018-01-19] MEDS: Vitamin A&D Oint 2oz Tube TOPIC SCH ×2 (08:35→20:44)
[2018-01-19] MEDS: Sennosides 8.6mg ORAL SCH (09:00)
[2018-01-19] MEDS: Docusate 100mg cap ORAL SCH ×3 (09:00→17:35)
[2018-01-19] MEDS: Levemir Flexpen SUBQ SCH ×2 (09:19→20:41)
--- NOTE | 2018-01-19 10:24 | General Progress Note ---
Assessment/Plan Problem List: (1) Diabetes mellitus out of control ICD Codes: E11.65 - Type 2 diabetes mellitus with hyperglycemia SNOMED: 74078487, 244630470 (2) COPD (chronic obstructive pulmonary disease) ICD Codes: J44.9 - Chronic obstructive pulmonary disease, unspecified SNOMED: 82159477 (3) Acute and chronic respiratory failure ICD Codes: J96.20 - Acute and chronic respiratory failure, unspecified whether with hypoxia or hypercapnia SNOMED: 93455560 Assessment/Plan continue Levemir 20 units bid continue Novolog 12 units ac tid continue NISS Subjective Allergies: Coded Allergies: Shrimp (Unverified Allergy, Unknown, 12/04/17) All Systems: reviewed and negative except above Subjective events noted Objective Last 24 Hour Vital Signs Date Time Temp Pulse Resp B/P (MAP) Pulse Ox O2 Delivery O2 Flow Rate FiO2 01/19/18 08:26 120 134/77 01/19/18 08:15 98 Nasal Cannula 2.0 28 01/19/18 08:15 Nasal Cannula 2.0 28 01/19/18 08:15 61 16 Nasal Cannula 2.0 28 01/19/18 08:01 98.1 120 22 134/77 97 98.1 01/19/18 04:00 97.3 109 17 112/69 98 97.3 01/19/18 04:00 98 Nasal Cannula 2.0 01/19/18 00:00 98.1 114 18 120/76 97 98.1 01/18/18 20:09 72 18 Nasal Cannula 2.0 28 01/18/18 20:09 Nasal Cannula 2.0 28 01/18/18 20:09 98 Nasal Cannula 2.0 28 01/18/18 20:00 98.2 108 20 113/59 94 98.2 01/18/18 15:50 97.7 127 20 123/77 96 97.7 01/18/18 11:50 98.2 118 20 126/75 94 98.2 Intake and Output 01/18/18 01/19/18 19:00 07:00 Intake Total 600 ml Balance 600 ml Intake Oral 600 ml # Voids 2 # Bowel Movements 2 3 Height (Feet): 5 Height (Inches): 4.00 Weight (Pounds): 140 General Appearance: no apparent distress Neck: normal alignment Cardiovascular: normal rate Respiratory/Chest: lungs clear Abdomen: normal bowel sounds Pelvis: normal external exam Objective Current Medications Medications (Trade) Dose Ordered Sig/Hansel Route PRN Reason Start Time Stop Time Status Last Admin Dose Admin Acetaminophen (Tylenol) 650 mg Q4H PRN ORAL T>100.5 12/30/17 07:31 01/19/18 15:30 01/17/18 05:03 Albuterol/ Ipratropium (Albuterol/ Ipratropium) 3 ml Q6H PRN HHN Shortness of Breath 01/16/18 15:45 01/21/18 15:44 01/17/18 19:34 Amlodipine Besylate (Norvasc) 5 mg DAILY ORAL 12/27/17 09:00 01/20/18 08:59 01/19/18 08:26 Clonidine HCl (Catapres Tab) 0.1 mg Q4H PRN ORAL sbp more than 160mmHg 12/26/17 15:31 01/23/18 15:30 Dextrose (Dextrose 50%) 25 ml STAT PRN IV Blood Sugar btwn 60-69 mg/dL 12/26/17 15:33 01/25/18 15:32 01/04/18 16:45 Dextrose (Dextrose 50%) 50 ml STAT PRN IV BS less than 60mg/dl 12/26/17 15:34 01/25/18 15:33 Docusate Sodium (Colace) 100 mg THREE TIMES A DAY ORAL 12/26/17 18:00 01/22/18 09:59 01/17/18 17:01 Heparin Sodium (Porcine) (Heparin 5000 units/ml) 5,000 units EVERY 12 HOURS SUBQ 12/26/17 21:00 01/20/18 08:59 01/19/18 09:33 Insulin Aspart (NovoLOG) BEFORE MEALS AND HS SUBQ 12/26/17 16:30 01/22/18 20:59 01/19/18 06:09 Insulin Aspart (NovoLOG) 12 units NOVOTIAC SUBQ 01/15/18 06:30 01/23/18 07:29 01/19/18 06:08 Insulin Detemir (Levemir) 20 units EVERY 12 HOURS SUBQ 01/15/18 09:00 01/23/18 20:59 01/19/18 09:19 Lorazepam (Ativan) 0.5 mg Q4H PRN ORAL For Anxiety 5/4/18 16:00 01/25/18 15:59 01/18/18 21:34 Mineral Oil (Fleet's Mineral Oil Enema) 133 ml EVERY OTHER DAY RECTAL 12/27/17 09:00 01/22/18 09:59 01/06/18 08:48 Nitroglycerin (Ntg) 0.4 mg Q5M X 3 DOSES PRN SL Prn Chest Pain 12/26/17 15:59 01/19/18 15:58 Ondansetron HCl (Zofran) 4 mg Q6H PRN IVP Nausea & Vomiting 12/26/17 16:00 01/19/18 15:59 01/04/18 12:11 Polyethylene Glycol (Miralax) 17 gm BEDTIME ORAL 12/26/17 21:00 01/22/18 20:59 01/17/18 20:43 Promethazine HCl/ Codeine (Phenergan with Codeine) 5 ml Q6H PRN ORAL cough 12/26/17 16:01 01/23/18 16:00 Risperidone (RisperDAL) 1 mg BID ORAL 12/26/17 18:00 01/20/18 13:14 01/19/18 08:26 Sennosides (Senokot) 1 tab DAILY ORAL 12/27/17 09:00 01/22/18 14:59 01/18/18 08:05 Vitamin A/Vitamin D (A & D Oint) 1 applic EVERY 12 HOURS TOPIC 12/26/17 21:00 01/20/18 22:59 01/19/18 08:35 Item Value Date Time Bedside Blood Glucose 124 mg/dl H 01/19/18 0919 Bedside Blood Glucose 124 mg/dl H 01/19/18 0630 Bedside Blood Glucose 174 mg/dl H 01/18/18 2136 Bedside Blood Glucose 299 mg/dl H 01/18/18 1644 Bedside Blood Glucose 275 mg/dl H 01/18/18 1158 Bedside Blood Glucose 166 mg/dl H 01/18/18 0811 Bedside Blood Glucose 166 mg/dl H 01/18/18 0624 FEMI MCKEON January 19, 2018 10:24
[2018-01-19 11:44] VITALS: BP 138/76
--- NOTE | 2018-01-19 12:06 | Infectious Diseases Prog Note ---
Assessment/Plan Assessment/Plan Assessment: Acute hypoxic resp failure improved COPD exacerbation- -CXR: No acute disease Afebrile, no leukocytosis Recent acute hypoxic failure and PNA 11/2015 -sp cx 12/04: E.coli (davila S), P. mirabilis (davila S) Influenza sc : Neg transaminitis improving Chronic Hep C, untreated VL 3.8 m,illions Hep panel : A Imm ; B not immune HIV Neg hx of trach s/p removal COPD Dm2 HTN [facility] resident Plan: - Monitor pt off of AB Rx -12/24 SP Levaquin # 5 /5 -12/10 SP Cefepime #7 -12/06 SP Vanco #3 -Monitor CBC/BMP, temperatures -aspiration precautions Hem fup, re TCP needs treatment of Hep C as outpatient needs Hep B vaccine as outpatient Subjective Allergies: Coded Allergies: Shrimp (Unverified Allergy, Unknown, 12/04/17) Subjective afebrile off abx no leukcoytosis Objective Vital Signs Last 24 Hour Vital Signs Date Time Temp Pulse Resp B/P (MAP) Pulse Ox O2 Delivery O2 Flow Rate FiO2 01/19/18 11:44 98.5 116 22 138/76 99 98.5 01/19/18 08:26 120 134/77 01/19/18 08:15 98 Nasal Cannula 2.0 28 01/19/18 08:15 Nasal Cannula 2.0 28 01/19/18 08:15 61 16 Nasal Cannula 2.0 28 01/19/18 08:01 98.1 120 22 134/77 97 98.1 01/19/18 04:00 97.3 109 17 112/69 98 97.3 01/19/18 04:00 98 Nasal Cannula 2.0 01/19/18 00:00 98.1 114 18 120/76 97 98.1 01/18/18 20:09 72 18 Nasal Cannula 2.0 28 01/18/18 20:09 Nasal Cannula 2.0 28 01/18/18 20:09 98 Nasal Cannula 2.0 28 01/18/18 20:00 98.2 108 20 113/59 94 98.2 01/18/18 15:50 97.7 127 20 123/77 96 97.7 Height (Feet): 5 Height (Inches): 4.00 Weight (Pounds): 140 Objective General Appearance: cachetic HEENT: normocephalic Respiratory/Chest: chest wall non-tender, lungs clear Breasts: no masses Cardiovascular: normal peripheral pulses, normal rate Abdomen: normal bowel sounds, soft, non tender Extremities: no cyanosis, no clubbing 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, no motor/sensory deficits Lymphatic: no neck adenopathy Current Medications Medications (Trade) Dose Ordered Sig/Hansel Route PRN Reason Start Time Stop Time Status Last Admin Dose Admin Acetaminophen (Tylenol) 650 mg Q4H PRN ORAL T>100.5 12/30/17 07:31 01/19/18 15:30 01/17/18 05:03 Albuterol/ Ipratropium (Albuterol/ Ipratropium) 3 ml Q6H PRN HHN Shortness of Breath 01/16/18 15:45 01/21/18 15:44 01/17/18 19:34 Amlodipine Besylate (Norvasc) 5 mg DAILY ORAL 12/27/17 09:00 01/20/18 08:59 01/19/18 08:26 Clonidine HCl (Catapres Tab) 0.1 mg Q4H PRN ORAL sbp more than 160mmHg 12/26/17 15:31 01/23/18 15:30 Dextrose (Dextrose 50%) 25 ml STAT PRN IV Blood Sugar btwn 60-69 mg/dL 12/26/17 15:33 01/25/18 15:32 01/04/18 16:45 Dextrose (Dextrose 50%) 50 ml STAT PRN IV BS less than 60mg/dl 12/26/17 15:34 01/25/18 15:33 Docusate Sodium (Colace) 100 mg THREE TIMES A DAY ORAL 12/26/17 18:00 01/22/18 09:59 01/17/18 17:01 Heparin Sodium (Porcine) (Heparin 5000 units/ml) 5,000 units EVERY 12 HOURS SUBQ 12/26/17 21:00 01/20/18 08:59 01/19/18 09:33 Insulin Aspart (NovoLOG) BEFORE MEALS AND HS SUBQ 12/26/17 16:30 01/22/18 20:59 01/19/18 06:09 Insulin Aspart (NovoLOG) 12 units NOVOTIAC SUBQ 01/15/18 06:30 01/23/18 07:29 01/19/18 06:08 Insulin Detemir (Levemir) 20 units EVERY 12 HOURS SUBQ 01/15/18 09:00 01/23/18 20:59 01/19/18 09:19 Lorazepam (Ativan) 0.5 mg Q4H PRN ORAL For Anxiety 01/18/18 16:00 01/25/18 15:59 01/18/18 21:34 Mineral Oil (Fleet's Mineral Oil Enema) 133 ml EVERY OTHER DAY RECTAL 12/27/17 09:00 01/22/18 09:59 01/06/18 08:48 Nitroglycerin (Ntg) 0.4 mg Q5M X 3 DOSES PRN SL Prn Chest Pain 12/26/17 15:59 01/19/18 15:58 Ondansetron HCl (Zofran) 4 mg Q6H PRN IVP Nausea & Vomiting 12/26/17 16:00 01/19/18 15:59 01/04/18 12:11 Polyethylene Glycol (Miralax) 17 gm BEDTIME ORAL 12/26/17 21:00 01/22/18 20:59 01/17/18 20:43 Promethazine HCl/ Codeine (Phenergan with Codeine) 5 ml Q6H PRN ORAL cough 12/26/17 16:01 01/23/18 16:00 Risperidone (RisperDAL) 1 mg BID ORAL 12/26/17 18:00 01/20/18 13:14 01/19/18 08:26 Sennosides (Senokot) 1 tab DAILY ORAL 12/27/17 09:00 01/22/18 14:59 01/18/18 08:05 Vitamin A/Vitamin D (A & D Oint) 1 applic EVERY 12 HOURS TOPIC 12/26/17 21:00 01/20/18 22:59 01/19/18 08:35 Caterina Elizondo M.D. January 19, 2018 12:06
--- NOTE | 2018-01-19 13:54 | Internal Med Progress Note ---
Subjective Date of Service: January 19, 2018 Physician Name Estefania Mckeon Attending Physician Tone Fried MD Current Medications Medications (Trade) Dose Ordered Sig/Hansel Route PRN Reason Start Time Stop Time Status Last Admin Dose Admin Acetaminophen (Tylenol) 650 mg Q4H PRN ORAL T>100.5 12/30/17 07:31 01/19/18 15:30 01/17/18 05:03 Albuterol/ Ipratropium (Albuterol/ Ipratropium) 3 ml Q6H PRN HHN Shortness of Breath 01/16/18 15:45 01/21/18 15:44 01/17/18 19:34 Amlodipine Besylate (Norvasc) 5 mg DAILY ORAL 12/27/17 09:00 01/20/18 08:59 01/19/18 08:26 Clonidine HCl (Catapres Tab) 0.1 mg Q4H PRN ORAL sbp more than 160mmHg 12/26/17 15:31 01/23/18 15:30 Dextrose (Dextrose 50%) 25 ml STAT PRN IV Blood Sugar btwn 60-69 mg/dL 12/26/17 15:33 01/25/18 15:32 01/04/18 16:45 Dextrose (Dextrose 50%) 50 ml STAT PRN IV BS less than 60mg/dl 12/26/17 15:34 01/25/18 15:33 Docusate Sodium (Colace) 100 mg THREE TIMES A DAY ORAL 12/26/17 18:00 01/22/18 09:59 01/17/18 17:01 Heparin Sodium (Porcine) (Heparin 5000 units/ml) 5,000 units EVERY 12 HOURS SUBQ 12/26/17 21:00 01/20/18 08:59 01/19/18 09:33 Insulin Aspart (NovoLOG) BEFORE MEALS AND HS SUBQ 12/26/17 16:30 01/22/18 20:59 01/19/18 12:45 Insulin Aspart (NovoLOG) 12 units NOVOTIAC SUBQ 01/15/18 06:30 01/23/18 07:29 01/19/18 12:46 Insulin Detemir (Levemir) 20 units EVERY 12 HOURS SUBQ 01/15/18 09:00 01/23/18 20:59 01/19/18 09:19 Lorazepam (Ativan) 0.5 mg Q4H PRN ORAL For Anxiety 01/18/18 16:00 01/25/18 15:59 01/18/18 21:34 Mineral Oil (Fleet's Mineral Oil Enema) 133 ml EVERY OTHER DAY RECTAL 12/27/17 09:00 01/22/18 09:59 01/06/18 08:48 Nitroglycerin (Ntg) 0.4 mg Q5M X 3 DOSES PRN SL Prn Chest Pain 12/26/17 15:59 01/19/18 15:58 Ondansetron HCl (Zofran) 4 mg Q6H PRN IVP Nausea & Vomiting 12/26/17 16:00 01/19/18 15:59 01/04/18 12:11 Polyethylene Glycol (Miralax) 17 gm BEDTIME ORAL 12/26/17 21:00 01/22/18 20:59 01/17/18 20:43 Promethazine HCl/ Codeine (Phenergan with Codeine) 5 ml Q6H PRN ORAL cough 12/26/17 16:01 01/23/18 16:00 Risperidone (RisperDAL) 1 mg BID ORAL 12/26/17 18:00 01/20/18 13:14 01/19/18 08:26 Sennosides (Senokot) 1 tab DAILY ORAL 12/27/17 09:00 01/22/18 14:59 01/18/18 08:05 Vitamin A/Vitamin D (A & D Oint) 1 applic EVERY 12 HOURS TOPIC 12/26/17 21:00 01/20/18 22:59 01/19/18 08:35 Allergies: Coded Allergies: Shrimp (Unverified Allergy, Unknown, 12/04/17) ROS Limited/Unobtainable: No Constitutional: Reports: no symptoms HEENT: Reports: no symptoms Cardiovascular: Reports: no symptoms Respiratory: Reports: shortness of breath Gastrointestinal/Abdominal: Reports: no symptoms Genitourinary: Reports: no symptoms Neurologic/Psychiatric: Reports: no symptoms Subjective 67 YO F admitted with respiratory failure. Now acute COPD exacerbation. Cover for [facility]. Await SNF placement Objective Last Vital Signs Date Time Temp Pulse Resp B/P (MAP) Pulse Ox O2 Delivery O2 Flow Rate FiO2 01/19/18 11:44 98.5 116 22 138/76 99 98.5 01/19/18 11:44 Nasal Cannula 2.0 01/19/18 08:15 28 Intake and Output 01/18/18 01/19/18 19:00 07:00 Intake Total 600 ml Balance 600 ml Intake Oral 600 ml # Voids 2 # Bowel Movements 2 3 Objective General Appearance: WD/WN, no apparent distress, alert EENT: PERRL/EOMI, normal ENT inspection Neck: non-tender, normal alignment, supple Cardiovascular: normal peripheral pulses, normal rate, regular rhythm, no gallop/murmur, no JVD Respiratory/Chest: respiratory distress, crackles/rales, rhonchi - bilaterally , expiratory wheezing Abdomen: normal bowel sounds, non tender, soft, no organomegaly, no mass Edema: trace edema 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 (3) HTN (hypertension) Assessment & Plan: Continue norvasc (4) Respiratory distress (5) COPD (chronic obstructive pulmonary disease) Assessment & Plan: Continue duoneb prn. See pulmonary note. (6) Hepatitis C Status: stable Assessment/Plan Discharge planning: senior care facility when bed available. ESTEFANIA MCKEON January 19, 2018 13:54
[2018-01-19 15:58] VITALS: BP 115/60
[2018-01-19 19:09] VITALS: BP 135/65
[2018-01-19] MEDS: Miralax 17gm pkt ORAL SCH (20:43)
[2018-01-20] VITALS (7 sets, daily range): BP systolic 82–123; BP diastolic 42–66
[2018-01-20] MEDS: NovoLOG Insulin Flexpen SUBQ SCH ×7 (05:53→21:11)
[2018-01-20] MEDS: Docusate 100mg cap ORAL SCH ×4 (08:42→17:06)
[2018-01-20] MEDS: Fleet's Mineral Oil Enema RECTAL SCH (08:42)
[2018-01-20] MEDS: Sennosides 8.6mg ORAL SCH ×2 (08:42→08:52)
[2018-01-20] MEDS: Levemir Flexpen SUBQ SCH ×2 (08:43→21:09)
[2018-01-20] MEDS: Vitamin A&D Oint 2oz Tube TOPIC SCH ×2 (08:44→21:08)
[2018-01-20 09:39] LABS: BASOPHILS % (AUTO) 1.2 % (0.0-2.0); EOSINOPHILS % (AUTO) 0.7 % (0.0-3.0); HEMATOCRIT 31.9 % (37.0-47.0); HEMOGLOBIN 9.7 G/DL (12.0-16.0); LYMPHOCYTES % (AUTO) 48.2 % (20.0-45.0); MEAN CORPUSCULAR VOLUME 87 FL (80-99); MONOCYTES % (AUTO) 8.7 % (1.0-10.0); NEUTROPHILS % (AUTO) 41.2 % (45.0-75.0); PLATELET COUNT 125 K/UL (150-450); RED BLOOD COUNT 3.68 M/UL (4.20-5.40); RED CELL DISTRIBUTION WIDTH 14.5 % (11.6-14.8); WHITE BLOOD COUNT 5.2 K/UL (4.8-10.8)
--- NOTE | 2018-01-20 10:24 | General Progress Note ---
Assessment/Plan Assessment/Plan #. Anemia due to underlying chronic disease. Mild at this time. --> Continue to closely monitor. Has been stable. --> Blood transfusion not required unless symptomatic or hgb <7 --> Reviewed anemia workup. Iron 110, TIBC 230, Ferritin 90, B12 821, Folate 6.6 , TSH 1.4 #. Thrombocytopenia, secondary to hepatitis C --> Hep A and C antibody test (+) --> Monitor for improvement. Transfuse if platelets <20k #. Leukopenia, likely secondary to hepatitis C, currently improved. --> No leukocytosis is noted. The patient has been afebrile. --> Resolved at this time. #. Tachycardia. --> Persistent. Monitor for improvement. #. Acute on hypoxic respiratory failure, status post tracheostomy, improved. #. Hepatitis C. Management as an outpatient. --> Appreciate Infectious Disease service evaluation. #. Hypertension. Systolic blood pressure goal less than 140. --> Improved. #. COPD. DC Planning. Awaiting placement. Subjective Date patient seen: January 18, 2018 Constitutional: Reports: no symptoms HEENT: Reports: no symptoms Cardiovascular: Reports: no symptoms Gastrointestinal/Abdominal: Reports: no symptoms Genitourinary: Reports: no symptoms Allergies: Coded Allergies: Shrimp (Unverified Allergy, Unknown, 12/04/17) Subjective Patient is awake and resting in bed. Pt responsive to verbal and tactile stimuli. In no acute medical distress Objective Last 24 Hour Vital Signs Date Time Temp Pulse Resp B/P (MAP) Pulse Ox O2 Delivery O2 Flow Rate FiO2 01/20/18 08:00 97.9 77 20 82/42 94 Nasal Cannula 2.0 97.9 01/20/18 03:57 98.2 116 20 111/62 95 Nasal Cannula 98.2 01/20/18 00:00 98.1 106 20 107/61 96 Nasal Cannula 2.0 98.1 01/19/18 20:24 129 20 Nasal Cannula 2.0 28 01/19/18 19:15 93 Nasal Cannula 2.0 28 01/19/18 19:15 Nasal Cannula 2.0 28 01/19/18 19:15 129 20 Nasal Cannula 2.0 28 01/19/18 19:09 98.2 129 20 135/65 93 Nasal Cannula 98.2 01/19/18 15:58 Nasal Cannula 2.0 01/19/18 15:58 97.2 111 22 115/60 97 97.2 01/19/18 11:44 98.5 116 22 138/76 99 98.5 01/19/18 11:44 Nasal Cannula 2.0 Intake and Output 01/19/18 01/20/18 19:00 07:00 Intake Total 480 ml Balance 480 ml Intake Oral 480 ml # Voids 4 2 # Bowel Movements 3 3 Laboratory Tests 01/20/18 08:15: White Blood Count 5.2, Red Blood Count 3.68L, Hemoglobin 9.7L, Hematocrit 31.9L , Mean Corpuscular Volume 87, Mean Corpuscular Hemoglobin 26.4L, Mean Corpuscular Hemoglobin Concent 30.4L, Red Cell Distribution Width 14.5, Platelet Count 125L, Mean Platelet Volume 7.1, Neutrophils (%) (Auto) 41.2L, Lymphocytes (%) (Auto) 48.2H, Monocytes (%) (Auto) 8.7, Eosinophils (%) (Auto) 0.7, Basophils (%) (Auto) 1.2, Sodium Level [Pending], Potassium Level [Pending] , Chloride Level [Pending], Carbon Dioxide Level [Pending], Blood Urea Nitrogen [Pending], Creatinine [Pending], Estimat Glomerular Filtration Rate [Pending], Glucose Level [Pending], Calcium Level [Pending] Height (Feet): 5 Height (Inches): 4.00 Weight (Pounds): 138 General Appearance: no apparent distress EENT: PERRL/EOMI Neck: non-tender, supple Anuj Alfaro MD January 20, 2018 10:24
--- NOTE | 2018-01-20 10:25 | General Progress Note ---
Assessment/Plan Assessment/Plan #. Anemia due to underlying chronic disease. Mild at this time. --> Continue to closely monitor. Has been stable. --> Blood transfusion not required unless symptomatic or hgb <7 --> Reviewed anemia workup. Iron 110, TIBC 230, Ferritin 90, B12 821, Folate 6.6 , TSH 1.4 #. Thrombocytopenia, secondary to hepatitis C --> Hep A and C antibody test (+) --> Monitor for improvement. Transfuse if platelets <20k #. Leukopenia, likely secondary to hepatitis C, currently improved. --> No leukocytosis is noted. The patient has been afebrile. --> Resolved at this time. #. Tachycardia. --> Persistent. Monitor for improvement. #. Acute on hypoxic respiratory failure, status post tracheostomy, improved. #. Hepatitis C. Management as an outpatient. --> Appreciate Infectious Disease service evaluation. #. Hypertension. Systolic blood pressure goal less than 140. --> Improved. #. COPD. DC Planning. Awaiting placement. Subjective Date patient seen: January 19, 2018 Allergies: Coded Allergies: Shrimp (Unverified Allergy, Unknown, 12/04/17) All Systems: reviewed and negative except above Subjective Patient is awake and resting in bed. In no acute medical distress Objective Last 24 Hour Vital Signs Date Time Temp Pulse Resp B/P (MAP) Pulse Ox O2 Delivery O2 Flow Rate FiO2 01/20/18 08:00 97.9 77 20 82/42 94 Nasal Cannula 2.0 97.9 01/20/18 03:57 98.2 116 20 111/62 95 Nasal Cannula 98.2 01/20/18 00:00 98.1 106 20 107/61 96 Nasal Cannula 2.0 98.1 01/19/18 20:24 129 20 Nasal Cannula 2.0 28 01/19/18 19:15 93 Nasal Cannula 2.0 28 01/19/18 19:15 Nasal Cannula 2.0 28 01/19/18 19:15 129 20 Nasal Cannula 2.0 28 01/19/18 19:09 98.2 129 20 135/65 93 Nasal Cannula 98.2 01/19/18 15:58 Nasal Cannula 2.0 01/19/18 15:58 97.2 111 22 115/60 97 97.2 01/19/18 11:44 98.5 116 22 138/76 99 98.5 01/19/18 11:44 Nasal Cannula 2.0 Intake and Output 01/19/18 01/20/18 19:00 07:00 Intake Total 480 ml Balance 480 ml Intake Oral 480 ml # Voids 4 2 # Bowel Movements 3 3 Laboratory Tests 01/20/18 08:15: White Blood Count 5.2, Red Blood Count 3.68L, Hemoglobin 9.7L, Hematocrit 31.9L , Mean Corpuscular Volume 87, Mean Corpuscular Hemoglobin 26.4L, Mean Corpuscular Hemoglobin Concent 30.4L, Red Cell Distribution Width 14.5, Platelet Count 125L, Mean Platelet Volume 7.1, Neutrophils (%) (Auto) 41.2L, Lymphocytes (%) (Auto) 48.2H, Monocytes (%) (Auto) 8.7, Eosinophils (%) (Auto) 0.7, Basophils (%) (Auto) 1.2, Sodium Level [Pending], Potassium Level [Pending] , Chloride Level [Pending], Carbon Dioxide Level [Pending], Blood Urea Nitrogen [Pending], Creatinine [Pending], Estimat Glomerular Filtration Rate [Pending], Glucose Level [Pending], Calcium Level [Pending] Height (Feet): 5 Height (Inches): 4.00 Weight (Pounds): 138 Anuj Alfaro MD January 20, 2018 10:25
[2018-01-20 10:30] LABS: ANION GAP 0 mmol/L (5-15); BLOOD UREA NITROGEN 11 mg/dL (7-18); CALCIUM 9.8 MG/DL (8.5-10.1); CHLORIDE 104 MMOL/L (98-107); CREATININE 0.7 MG/DL (0.55-1.30); POTASSIUM 3.6 MMOL/L (3.5-5.1); SODIUM 147 MMOL/L (136-145)
[2018-01-20 10:31] LABS: CARBON DIOXIDE 43 MMOL/L (21-32)
--- NOTE | 2018-01-20 10:58 | General Progress Note ---
Assessment/Plan Problem List: (1) Diabetes mellitus out of control ICD Codes: E11.65 - Type 2 diabetes mellitus with hyperglycemia SNOMED: 93218491, 544673525 (2) COPD (chronic obstructive pulmonary disease) ICD Codes: J44.9 - Chronic obstructive pulmonary disease, unspecified SNOMED: 61590328 (3) Acute and chronic respiratory failure ICD Codes: J96.20 - Acute and chronic respiratory failure, unspecified whether with hypoxia or hypercapnia SNOMED: 63876275 Assessment/Plan continue Levemir 20 units bid continue Novolog 12 units ac tid continue NISS Subjective Allergies: Coded Allergies: Shrimp (Unverified Allergy, Unknown, 12/04/17) All Systems: reviewed and negative except above Subjective events noted Objective Last 24 Hour Vital Signs Date Time Temp Pulse Resp B/P (MAP) Pulse Ox O2 Delivery O2 Flow Rate FiO2 01/20/18 10:00 113 123/60 01/20/18 08:00 97.9 77 20 82/42 94 Nasal Cannula 2.0 97.9 01/20/18 03:57 98.2 116 20 111/62 95 Nasal Cannula 98.2 01/20/18 00:00 98.1 106 20 107/61 96 Nasal Cannula 2.0 98.1 01/19/18 20:24 129 20 Nasal Cannula 2.0 28 01/19/18 19:15 93 Nasal Cannula 2.0 28 01/19/18 19:15 Nasal Cannula 2.0 28 01/19/18 19:15 129 20 Nasal Cannula 2.0 28 01/19/18 19:09 98.2 129 20 135/65 93 Nasal Cannula 98.2 01/19/18 15:58 Nasal Cannula 2.0 01/19/18 15:58 97.2 111 22 115/60 97 97.2 01/19/18 11:44 98.5 116 22 138/76 99 98.5 01/19/18 11:44 Nasal Cannula 2.0 Intake and Output 01/19/18 01/20/18 19:00 07:00 Intake Total 480 ml Balance 480 ml Intake Oral 480 ml # Voids 4 2 # Bowel Movements 3 3 Laboratory Tests 01/20/18 08:15: White Blood Count 5.2, Red Blood Count 3.68L, Hemoglobin 9.7L, Hematocrit 31.9L , Mean Corpuscular Volume 87, Mean Corpuscular Hemoglobin 26.4L, Mean Corpuscular Hemoglobin Concent 30.4L, Red Cell Distribution Width 14.5, Platelet Count 125L, Mean Platelet Volume 7.1, Neutrophils (%) (Auto) 41.2L, Lymphocytes (%) (Auto) 48.2H, Monocytes (%) (Auto) 8.7, Eosinophils (%) (Auto) 0.7, Basophils (%) (Auto) 1.2, Sodium Level 147H, Potassium Level 3.6, Chloride Level 104, Carbon Dioxide Level 43*H, Anion Gap 0L, Blood Urea Nitrogen 11, Creatinine 0.7, Estimat Glomerular Filtration Rate > 60, Glucose Level 72L, Calcium Level 9.8 Height (Feet): 5 Height (Inches): 4.00 Weight (Pounds): 138 General Appearance: no apparent distress Neck: normal alignment Cardiovascular: normal rate Respiratory/Chest: lungs clear Abdomen: normal bowel sounds Objective Current Medications Medications (Trade) Dose Ordered Sig/Hansel Route PRN Reason Start Time Stop Time Status Last Admin Dose Admin Albuterol/ Ipratropium (Albuterol/ Ipratropium) 3 ml Q6H PRN HHN Shortness of Breath 01/16/18 15:45 01/21/18 15:44 01/17/18 19:34 Clonidine HCl (Catapres Tab) 0.1 mg Q4H PRN ORAL sbp more than 160mmHg 12/26/17 15:31 01/23/18 15:30 Dextrose (Dextrose 50%) 25 ml STAT PRN IV Blood Sugar btwn 60-69 mg/dL 12/26/17 15:33 01/25/18 15:32 01/04/18 16:45 Dextrose (Dextrose 50%) 50 ml STAT PRN IV BS less than 60mg/dl 12/26/17 15:34 01/25/18 15:33 Docusate Sodium (Colace) 100 mg THREE TIMES A DAY ORAL 12/26/17 18:00 01/22/18 09:59 01/17/18 17:01 Insulin Aspart (NovoLOG) BEFORE MEALS AND HS SUBQ 12/26/17 16:30 01/22/18 20:59 01/20/18 05:53 Insulin Aspart (NovoLOG) 12 units NOVOTIAC SUBQ 5/1/18 06:30 01/23/18 07:29 01/20/18 05:54 Insulin Detemir (Levemir) 20 units EVERY 12 HOURS SUBQ 01/15/18 09:00 01/23/18 20:59 01/20/18 08:43 Lorazepam (Ativan) 0.5 mg Q4H PRN ORAL For Anxiety 01/18/18 16:00 01/25/18 15:59 01/18/18 21:34 Mineral Oil (Fleet's Mineral Oil Enema) 133 ml EVERY OTHER DAY RECTAL 12/27/17 09:00 01/22/18 09:59 01/06/18 08:48 Polyethylene Glycol (Miralax) 17 gm BEDTIME ORAL 12/26/17 21:00 01/22/18 20:59 01/19/18 20:43 Promethazine HCl/ Codeine (Phenergan with Codeine) 5 ml Q6H PRN ORAL cough 12/26/17 16:01 01/23/18 16:00 Risperidone (RisperDAL) 1 mg BID ORAL 12/26/17 18:00 01/20/18 13:14 01/20/18 08:42 Sennosides (Senokot) 1 tab DAILY ORAL 12/27/17 09:00 01/22/18 14:59 01/18/18 08:05 Vitamin A/Vitamin D (A & D Oint) 1 applic EVERY 12 HOURS TOPIC 12/26/17 21:00 01/20/18 22:59 01/20/18 08:44 Item Value Date Time Bedside Blood Glucose 121 mg/dl H 01/20/18 0843 Bedside Blood Glucose 121 mg/dl H 01/20/18 0615 Bedside Blood Glucose 263 mg/dl H 01/19/18 2100 Bedside Blood Glucose 202 mg/dl H 01/19/18 1717 Bedside Blood Glucose 349 mg/dl H 01/19/18 1246 FEMI MCKEON January 20, 2018 10:58
--- NOTE | 2018-01-20 13:54 | Internal Med Progress Note ---
Subjective Date of Service: January 20, 2018 Physician Name Estefania Mckeon Attending Physician Tone Fried MD Current Medications Medications (Trade) Dose Ordered Sig/Hansel Route PRN Reason Start Time Stop Time Status Last Admin Dose Admin Albuterol/ Ipratropium (Albuterol/ Ipratropium) 3 ml Q6H PRN HHN Shortness of Breath 01/16/18 15:45 01/21/18 15:44 01/17/18 19:34 Clonidine HCl (Catapres Tab) 0.1 mg Q4H PRN ORAL sbp more than 160mmHg 12/26/17 15:31 01/23/18 15:30 Dextrose (Dextrose 50%) 25 ml STAT PRN IV Blood Sugar btwn 60-69 mg/dL 12/26/17 15:33 01/25/18 15:32 01/04/18 16:45 Dextrose (Dextrose 50%) 50 ml STAT PRN IV BS less than 60mg/dl 12/26/17 15:34 01/25/18 15:33 Docusate Sodium (Colace) 100 mg THREE TIMES A DAY ORAL 12/26/17 18:00 01/22/18 09:59 01/17/18 17:01 Insulin Aspart (NovoLOG) BEFORE MEALS AND HS SUBQ 12/26/17 16:30 01/22/18 20:59 01/20/18 11:43 Insulin Aspart (NovoLOG) 12 units NOVOTIAC SUBQ 01/15/18 06:30 01/23/18 07:29 01/20/18 11:44 Insulin Detemir (Levemir) 20 units EVERY 12 HOURS SUBQ 01/15/18 09:00 01/23/18 20:59 01/20/18 08:43 Lorazepam (Ativan) 0.5 mg Q4H PRN ORAL For Anxiety 01/18/18 16:00 01/25/18 15:59 01/18/18 21:34 Mineral Oil (Fleet's Mineral Oil Enema) 133 ml EVERY OTHER DAY RECTAL 12/27/17 09:00 01/22/18 09:59 01/06/18 08:48 Polyethylene Glycol (Miralax) 17 gm BEDTIME ORAL 12/26/17 21:00 01/22/18 20:59 01/19/18 20:43 Promethazine HCl/ Codeine (Phenergan with Codeine) 5 ml Q6H PRN ORAL cough 12/26/17 16:01 01/23/18 16:00 Sennosides (Senokot) 1 tab DAILY ORAL 12/27/17 09:00 01/22/18 14:59 01/18/18 08:05 Vitamin A/Vitamin D (A & D Oint) 1 applic EVERY 12 HOURS TOPIC 12/26/17 21:00 01/20/18 22:59 01/20/18 08:44 Allergies: Coded Allergies: Shrimp (Unverified Allergy, Unknown, 12/04/17) ROS Limited/Unobtainable: No Constitutional: Reports: no symptoms HEENT: Reports: no symptoms Cardiovascular: Reports: no symptoms Respiratory: Reports: shortness of breath Gastrointestinal/Abdominal: Reports: no symptoms Genitourinary: Reports: no symptoms Neurologic/Psychiatric: Reports: no symptoms Subjective 67 YO F admitted with respiratory failure. Now acute COPD exacerbation. Cover for Juan Pablo Fried. Await SNF placement Objective Last Vital Signs Date Time Temp Pulse Resp B/P (MAP) Pulse Ox O2 Delivery O2 Flow Rate FiO2 01/20/18 12:00 98.2 116 20 116/66 96 Nasal Cannula 2.0 98.2 01/19/18 20:24 28 Laboratory Tests Test 01/20/18 08:15 White Blood Count 5.2 K/UL (4.8-10.8) Red Blood Count 3.68 M/UL (4.20-5.40) L Hemoglobin 9.7 G/DL (12.0-16.0) L Hematocrit 31.9 % (37.0-47.0) L Mean Corpuscular Volume 87 FL (80-99) Mean Corpuscular Hemoglobin 26.4 PG (27.0-31.0) L Mean Corpuscular Hemoglobin Concent 30.4 G/DL (32.0-36.0) L Red Cell Distribution Width 14.5 % (11.6-14.8) Platelet Count 125 K/UL (150-450) L Mean Platelet Volume 7.1 FL (6.5-10.1) Neutrophils (%) (Auto) 41.2 % (45.0-75.0) L Lymphocytes (%) (Auto) 48.2 % (20.0-45.0) H Monocytes (%) (Auto) 8.7 % (1.0-10.0) Eosinophils (%) (Auto) 0.7 % (0.0-3.0) Basophils (%) (Auto) 1.2 % (0.0-2.0) Sodium Level 147 MMOL/L (136-145) H Potassium Level 3.6 MMOL/L (3.5-5.1) Chloride Level 104 MMOL/L (98-107) Carbon Dioxide Level 43 MMOL/L (21-32) *H Anion Gap 0 mmol/L (5-15) L Blood Urea Nitrogen 11 mg/dL (7-18) Creatinine 0.7 MG/DL (0.55-1.30) Estimat Glomerular Filtration Rate > 60 mL/min (>60) Glucose Level 72 MG/DL (74-106) L Calcium Level 9.8 MG/DL (8.5-10.1) Intake and Output 01/19/18 01/20/18 19:00 07:00 Intake Total 480 ml Balance 480 ml Intake Oral 480 ml # Voids 4 2 # Bowel Movements 3 3 Objective General Appearance: WD/WN, no apparent distress, alert EENT: PERRL/EOMI, normal ENT inspection Neck: non-tender, normal alignment, supple Cardiovascular: normal peripheral pulses, normal rate, regular rhythm, no gallop/murmur, no JVD Respiratory/Chest: respiratory distress, crackles/rales, rhonchi - bilaterally , expiratory wheezing Abdomen: normal bowel sounds, non tender, soft, no organomegaly, no mass Edema: trace edema 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 (3) HTN (hypertension) Assessment & Plan: Continue norvasc (4) Respiratory distress (5) COPD (chronic obstructive pulmonary disease) Assessment & Plan: Continue duoneb prn. See pulmonary note. (6) Hepatitis C Assessment/Plan Discharge planning: [facility] facility when bed available. ESTEFANIA MCKEON January 20, 2018 13:54
[2018-01-20] MEDS ORDERED: Albuterol/Ipratropium 3ml neb HHN PRN (16:30)
[2018-01-20] MEDS ORDERED: Promethazine/Codeine 5ml UD ORAL PRN (16:30)
[2018-01-20] MEDS ORDERED: LORazepam 0.5mg tab ORAL PRN (16:30)
--- NOTE | 2018-01-20 18:21 | General Progress Note ---
Assessment/Plan Assessment/Plan #. Anemia due to underlying chronic disease. Mild at this time. --> Continue to closely monitor. Has been stable. --> Blood transfusion not required unless symptomatic or hgb <7 --> Reviewed anemia workup. Iron 110, TIBC 230, Ferritin 90, B12 821, Folate 6.6 , TSH 1.4 #. Thrombocytopenia, secondary to hepatitis C --> Hep A and C antibody test (+) --> Monitor for improvement. Transfuse if platelets <20k #. Leukopenia, likely secondary to hepatitis C, currently improved. --> No leukocytosis is noted. The patient has been afebrile. --> Resolved at this time. #. Tachycardia. --> Persistent. Monitor for improvement. #. Acute on hypoxic respiratory failure, status post tracheostomy, improved. #. Hepatitis C. --> Elevated liver enzymes. Management as an outpatient. --> Appreciate Infectious Disease service evaluation. #. Hypertension. Systolic blood pressure goal less than 140. --> Improved. #. COPD. --> On duoneb prn. DC Planning. Awaiting placement. Subjective Date patient seen: January 20, 2018 Constitutional: Denies: no symptoms, chills, diaphoresis, fever, malaise, weakness, other HEENT: Denies: no symptoms, eye pain, blurred vision, tearing, double vision, ear pain, ear discharge, nose pain, nose congestion, throat pain, throat swelling, mouth pain, mouth swelling, other Cardiovascular: Denies: no symptoms, chest pain, edema, irregular heart rate, lightheadedness, palpitations, syncope, other Respiratory: Denies: no symptoms, cough, orthopnea, shortness of breath, SOB with excertion, SOB at rest, sputum, stridor, wheezing, other Gastrointestinal/Abdominal: Denies: no symptoms, abdomen distended, abdominal pain, black stools, tarry stools, blood in stool, constipated, diarrhea, difficulty swallowing, nausea, poor appetite, poor fluid intake, rectal bleeding , vomiting, other Genitourinary: Denies: no symptoms, burning, discharge, frequency, flank pain, hematuria, incontinence, pain, urgency, other Neurologic/Psychiatric: Denies: no symptoms, anxiety, depressed, emotional problems, headache, numbness, paresthesia, pre-existing deficit, seizure, tingling, tremors, weakness, other Endocrine: Denies: no symptoms, excessive sweating, flushing, intolerance to cold, intolerance to heat, increased hunger, increased thirst, increased urine, unexplained weight gain, unexplained weight loss, other Allergies: Coded Allergies: Shrimp (Unverified Allergy, Unknown, 12/04/17) Subjective Tachycardic. No active bleeding. Pending placement. Objective Last 24 Hour Vital Signs Date Time Temp Pulse Resp B/P (MAP) Pulse Ox O2 Delivery O2 Flow Rate FiO2 01/20/18 16:00 98.1 102 20 105/57 98 Nasal Cannula 2.0 98.1 01/20/18 12:00 98.2 116 20 116/66 96 Nasal Cannula 2.0 98.2 01/20/18 10:00 113 123/60 01/20/18 08:00 97.9 77 20 82/42 94 Nasal Cannula 2.0 97.9 01/20/18 03:57 98.2 116 20 111/62 95 Nasal Cannula 98.2 01/20/18 00:00 98.1 106 20 107/61 96 Nasal Cannula 2.0 98.1 01/19/18 20:24 129 20 Nasal Cannula 2.0 28 01/19/18 19:15 93 Nasal Cannula 2.0 28 01/19/18 19:15 Nasal Cannula 2.0 28 01/19/18 19:15 129 20 Nasal Cannula 2.0 28 01/19/18 19:09 98.2 129 20 135/65 93 Nasal Cannula 98.2 Intake and Output 01/19/18 01/20/18 19:00 07:00 Intake Total 480 ml Balance 480 ml Intake Oral 480 ml # Voids 4 2 # Bowel Movements 3 3 Laboratory Tests 01/20/18 08:15: White Blood Count 5.2, Red Blood Count 3.68L, Hemoglobin 9.7L, Hematocrit 31.9L , Mean Corpuscular Volume 87, Mean Corpuscular Hemoglobin 26.4L, Mean Corpuscular Hemoglobin Concent 30.4L, Red Cell Distribution Width 14.5, Platelet Count 125L, Mean Platelet Volume 7.1, Neutrophils (%) (Auto) 41.2L, Lymphocytes (%) (Auto) 48.2H, Monocytes (%) (Auto) 8.7, Eosinophils (%) (Auto) 0.7, Basophils (%) (Auto) 1.2, Sodium Level 147H, Potassium Level 3.6, Chloride Level 104, Carbon Dioxide Level 43*H, Anion Gap 0L, Blood Urea Nitrogen 11, Creatinine 0.7, Estimat Glomerular Filtration Rate > 60, Glucose Level 72L, Calcium Level 9.8 Height (Feet): 5 Height (Inches): 4.00 Weight (Pounds): 138 General Appearance: no apparent distress EENT: PERRL/EOMI, normal ENT inspection Neck: non-tender, normal alignment Cardiovascular: normal peripheral pulses, normal rate Respiratory/Chest: respiratory distress, crackles/rales, rhonchi - bilaterally Abdomen: normal bowel sounds, non tender, soft Anuj Alfaro MD January 20, 2018 18:21
[2018-01-20] MEDS ORDERED: Miralax 17gm pkt ORAL SCH (21:00)
[2018-01-21] VITALS: BP 114/61
[2018-01-21 04:00] VITALS: BP_SYST 111; BP_SYST 138; BP_DIAS 65; BP_DIAS 80
[2018-01-21] MEDS: NovoLOG Insulin Flexpen SUBQ SCH ×7 (06:25→21:00)
--- NOTE | 2018-01-21 07:00 | General Progress Note ---
Assessment/Plan Problem List: (1) Diabetes mellitus out of control ICD Codes: E11.65 - Type 2 diabetes mellitus with hyperglycemia SNOMED: 99681091, [id number] (2) COPD (chronic obstructive pulmonary disease) ICD Codes: J44.9 - Chronic obstructive pulmonary disease, unspecified SNOMED: 87501686 (3) Acute and chronic respiratory failure ICD Codes: J96.20 - Acute and chronic respiratory failure, unspecified whether with hypoxia or hypercapnia SNOMED: 06179703 Assessment/Plan continue Levemir 20 units bid continue Novolog 12 units ac tid continue NISS Subjective ROS Limited/Unobtainable: Yes Allergies: Coded Allergies: Shrimp (Unverified Allergy, Unknown, 12/04/17) Subjective events noted - transferred to [facility] Objective Last 24 Hour Vital Signs Date Time Temp Pulse Resp B/P (MAP) Pulse Ox O2 Delivery O2 Flow Rate FiO2 01/21/18 04:00 98.7 110 20 111/65 100 Nasal Cannula 2.0 98.7 01/21/18 04:00 125 01/21/18 00:00 98.2 100 24 114/61 100 Nasal Cannula 2.0 98.2 01/20/18 20:00 98.7 110 20 111/65 100 Nasal Cannula 2.0 98.7 110 01/20/18 19:30 Nasal Cannula 2.0 28 01/20/18 19:30 110 18 Nasal Cannula 2.0 28 01/20/18 19:30 95 Nasal Cannula 2.0 28 01/20/18 16:00 98.1 102 20 105/57 98 Nasal Cannula 2.0 98.1 01/20/18 12:00 98.2 116 20 116/66 96 Nasal Cannula 2.0 98.2 01/20/18 10:00 113 123/60 01/20/18 08:00 97.9 77 20 82/42 94 Nasal Cannula 2.0 97.9 Intake and Output 01/20/18 01/21/18 19:00 07:00 Intake Total 480 ml Balance 480 ml Intake Oral 480 ml # Voids 5 Laboratory Tests 01/20/18 08:15: White Blood Count 5.2, Red Blood Count 3.68L, Hemoglobin 9.7L, Hematocrit 31.9L , Mean Corpuscular Volume 87, Mean Corpuscular Hemoglobin 26.4L, Mean Corpuscular Hemoglobin Concent 30.4L, Red Cell Distribution Width 14.5, Platelet Count 125L, Mean Platelet Volume 7.1, Neutrophils (%) (Auto) 41.2L, Lymphocytes (%) (Auto) 48.2H, Monocytes (%) (Auto) 8.7, Eosinophils (%) (Auto) 0.7, Basophils (%) (Auto) 1.2, Sodium Level 147H, Potassium Level 3.6, Chloride Level 104, Carbon Dioxide Level 43*H, Anion Gap 0L, Blood Urea Nitrogen 11, Creatinine 0.7, Estimat Glomerular Filtration Rate > 60, Glucose Level 72L, Calcium Level 9.8 Height (Feet): 5 Height (Inches): 4.00 Weight (Pounds): 146 General Appearance: no apparent distress Neck: normal alignment Cardiovascular: normal rate Respiratory/Chest: decreased breath sounds Abdomen: normal bowel sounds Pelvis: normal external exam Edema: 1+ Arm (L), 1+ Arm (R), 1+ Leg (L), 1+ Leg (R), 1+ Pedal (L), 1+ Pedal ( R), 1+ Generalized Objective Item Value Date Time Bedside Blood Glucose 141 mg/dl H 01/21/18 0626 Bedside Blood Glucose 286 mg/dl H 01/20/18 2111 Bedside Blood Glucose 56 mg/dl L 01/20/18 1650 Bedside Blood Glucose 147 mg/dl H 01/20/18 1144 Bedside Blood Glucose 121 mg/dl H 01/20/18 0843 Bedside Blood Glucose 121 mg/dl H 01/20/18 0615 FEMI MCKEON January 21, 2018 07:00
[2018-01-21 08:30] VITALS: BP 109/58
[2018-01-21] MEDS ORDERED: Sennosides 8.6mg ORAL SCH (09:00)
[2018-01-21] MEDS: Docusate 100mg cap ORAL SCH ×3 (09:08→18:29)
[2018-01-21] MEDS: Levemir Flexpen SUBQ SCH (09:10)
[2018-01-21] MEDS: Vitamin A&D Oint 2oz Tube TOPIC SCH ×2 (09:19→21:33)
[2018-01-21 09:51] LABS: BASOPHILS % (AUTO) 0.8 % (0.0-2.0); EOSINOPHILS % (AUTO) 0.3 % (0.0-3.0); HEMATOCRIT 33.2 % (37.0-47.0); HEMOGLOBIN 9.9 G/DL (12.0-16.0); LYMPHOCYTES % (AUTO) 49.9 % (20.0-45.0); MEAN CORPUSCULAR VOLUME 87 FL (80-99); PLATELET COUNT 134 K/UL (150-450); RED BLOOD COUNT 3.81 M/UL (4.20-5.40); RED CELL DISTRIBUTION WIDTH 14.9 % (11.6-14.8); WHITE BLOOD COUNT 5.2 K/UL (4.8-10.8)
[2018-01-21 10:12] LABS: BLOOD UREA NITROGEN 8 mg/dL (7-18); CALCIUM 9.7 MG/DL (8.5-10.1); CREATININE 0.7 MG/DL (0.55-1.30); POTASSIUM 3.7 MMOL/L (3.5-5.1); SODIUM 144 MMOL/L (136-145)
[2018-01-21 10:27] LABS: ANION GAP 3 mmol/L (5-15); CHLORIDE 101 MMOL/L (98-107)
--- NOTE | 2018-01-21 10:38 | Internal Med Progress Note ---
Subjective Date of Service: January 21, 2018 Physician Name Estefania Mckeon Attending Physician Tone Fried MD Current Medications Medications (Trade) Dose Ordered Sig/Hansel Route PRN Reason Start Time Stop Time Status Last Admin Dose Admin Albuterol/ Ipratropium (Albuterol/ Ipratropium) 3 ml Q6H PRN HHN Shortness of Breath 01/20/18 16:30 01/27/18 16:29 Clonidine HCl (Catapres Tab) 0.1 mg Q4H PRN ORAL sbp more than 160mmHg 01/20/18 16:30 02/19/18 16:29 Dextrose (Dextrose 50%) 25 ml STAT PRN IV Blood Sugar btwn 60-69 mg/dL 01/20/18 16:30 02/19/18 16:29 Dextrose (Dextrose 50%) 50 ml STAT PRN IV BS less than 60mg/dl 01/20/18 16:30 02/19/18 16:29 Docusate Sodium (Colace) 100 mg THREE TIMES A DAY ORAL 01/20/18 18:00 02/19/18 17:59 01/21/18 09:08 Insulin Aspart (NovoLOG) BEFORE MEALS AND HS SUBQ 01/20/18 16:30 02/19/18 16:29 01/21/18 06:26 Insulin Aspart (NovoLOG) 12 units NOVOTIAC SUBQ 01/20/18 16:50 01/23/18 07:29 01/21/18 06:25 Insulin Detemir (Levemir) 20 units EVERY 12 HOURS SUBQ 01/20/18 21:00 02/19/18 08:59 01/21/18 09:10 Lorazepam (Ativan) 0.5 mg Q4H PRN ORAL For Anxiety 01/20/18 16:30 01/25/18 16:29 Mineral Oil (Fleet's Mineral Oil Enema) 133 ml EVERY OTHER DAY RECTAL 01/22/18 09:00 01/22/18 09:59 Polyethylene Glycol (Miralax) 17 gm BEDTIME ORAL 01/20/18 21:00 02/19/18 20:59 01/20/18 21:07 Promethazine HCl/ Codeine (Phenergan with Codeine) 5 ml Q6H PRN ORAL cough 01/20/18 16:30 5/9/18 16:29 Sennosides (Senokot) 1 tab DAILY ORAL 01/21/18 09:00 02/19/18 08:59 01/21/18 09:08 Vitamin A/Vitamin D (A & D Oint) 1 applic EVERY 12 HOURS TOPIC 01/20/18 21:00 02/19/18 20:59 01/21/18 09:19 Allergies: Coded Allergies: Shrimp (Unverified Allergy, Unknown, 12/04/17) ROS Limited/Unobtainable: No Constitutional: Reports: no symptoms HEENT: Reports: no symptoms Cardiovascular: Reports: no symptoms Respiratory: Reports: shortness of breath Gastrointestinal/Abdominal: Reports: no symptoms Genitourinary: Reports: no symptoms Neurologic/Psychiatric: Reports: no symptoms Subjective 67 YO F admitted with respiratory failure. Now acute COPD exacerbation. Cover for Juan Pablo Fried. Transfered to [facility] for tachycardia Objective Last Vital Signs Date Time Temp Pulse Resp B/P (MAP) Pulse Ox O2 Delivery O2 Flow Rate FiO2 01/21/18 08:40 90 18 Nasal Cannula 2.0 28 01/21/18 08:40 98 01/21/18 04:00 98.7 111/65 98.7 Laboratory Tests Test 01/21/18 07:20 White Blood Count 5.2 K/UL (4.8-10.8) Red Blood Count 3.81 M/UL (4.20-5.40) L Hemoglobin 9.9 G/DL (12.0-16.0) L Hematocrit 33.2 % (37.0-47.0) L Mean Corpuscular Volume 87 FL (80-99) Mean Corpuscular Hemoglobin 26.1 PG (27.0-31.0) L Mean Corpuscular Hemoglobin Concent 29.9 G/DL (32.0-36.0) L Red Cell Distribution Width 14.9 % (11.6-14.8) H Platelet Count 134 K/UL (150-450) L Mean Platelet Volume 6.7 FL (6.5-10.1) Neutrophils (%) (Auto) 44.0 % (45.0-75.0) L Lymphocytes (%) (Auto) 49.9 % (20.0-45.0) H Monocytes (%) (Auto) 5.0 % (1.0-10.0) Eosinophils (%) (Auto) 0.3 % (0.0-3.0) Basophils (%) (Auto) 0.8 % (0.0-2.0) Sodium Level Pending Potassium Level Pending Chloride Level Pending Carbon Dioxide Level Pending Blood Urea Nitrogen Pending Creatinine Pending Estimat Glomerular Filtration Rate Pending Glucose Level Pending Calcium Level Pending Intake and Output 01/20/18 01/21/18 19:00 07:00 Intake Total 480 ml Balance 480 ml Intake Oral 480 ml # Voids 5 Objective General Appearance: WD/WN, no apparent distress, alert EENT: PERRL/EOMI, normal ENT inspection Neck: non-tender, normal alignment, supple Cardiovascular: tachycardia; normal peripheral pulses,regular rhythm, no gallop /murmur, no JVD Respiratory/Chest: respiratory distress, crackles/rales, rhonchi - bilaterally , expiratory wheezing Abdomen: normal bowel sounds, non tender, soft, no organomegaly, no mass Edema: trace edema 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 (3) HTN (hypertension) Assessment & Plan: Continue norvasc (4) Respiratory distress (5) COPD (chronic obstructive pulmonary disease) Assessment & Plan: Continue duoneb prn. See pulmonary note. (6) Hepatitis C (7) Tachycardia Assessment & Plan: Await cardiology reeval; monitored bed. Assessment/Plan Discharge planning: alf facility when bed available. ESTEFANIA MCKEON January 21, 2018 10:38
[2018-01-21 10:45] LABS: CARBON DIOXIDE 41 MMOL/L (21-32)
[2018-01-21 12:00] VITALS: BP 117/65
--- NOTE | 2018-01-21 12:00 | Infectious Diseases Prog Note ---
Assessment/Plan Assessment/Plan Assessment: Acute hypoxic resp failure improved COPD exacerbation- -CXR: No acute disease Afebrile, no leukocytosis Recent acute hypoxic failure and PNA 11/2015 -sp cx 12/04: E.coli (davila S), P. mirabilis (davila S) Influenza sc : Neg transaminitis improving Chronic Hep C, untreated VL 3.8 m,illions Hep panel : A Imm ; B not immune HIV Neg hx of trach s/p removal COPD Dm2 HTN NH resident Plan: - Monitor pt off of AB Rx -12/24 SP Levaquin # 5 /5 -12/10 SP Cefepime #7 -12/06 SP Vanco #3 -Monitor CBC/BMP, temperatures -aspiration precautions Hem fup, re TCP needs treatment of Hep C as outpatient needs Hep B vaccine as outpatient Subjective Allergies: Coded Allergies: Shrimp (Unverified Allergy, Unknown, 12/04/17) Subjective afebrile off abx no leukcoytosis Objective Vital Signs Last 24 Hour Vital Signs Date Time Temp Pulse Resp B/P (MAP) Pulse Ox O2 Delivery O2 Flow Rate FiO2 01/21/18 08:40 90 18 Nasal Cannula 2.0 28 01/21/18 08:40 Nasal Cannula 2.0 28 01/21/18 08:40 98 Nasal Cannula 2.0 28 01/21/18 08:30 98.4 98 18 109/58 100 Nasal Cannula 2.0 98.4 01/21/18 07:23 107 01/21/18 04:00 98.7 110 20 111/65 100 Nasal Cannula 2.0 98.7 01/21/18 04:00 125 01/21/18 00:00 98.2 100 24 114/61 100 Nasal Cannula 2.0 98.2 01/20/18 20:00 98.7 110 20 111/65 100 Nasal Cannula 2.0 98.7 110 01/20/18 19:30 Nasal Cannula 2.0 28 01/20/18 19:30 110 18 Nasal Cannula 2.0 28 01/20/18 19:30 95 Nasal Cannula 2.0 28 01/20/18 16:00 98.1 102 20 105/57 98 Nasal Cannula 2.0 98.1 01/20/18 12:00 98.2 116 20 116/66 96 Nasal Cannula 2.0 98.2 Height (Feet): 5 Height (Inches): 4.00 Weight (Pounds): 146 Objective General Appearance: cachetic HEENT: normocephalic Respiratory/Chest: chest wall non-tender, lungs clear Breasts: no masses Cardiovascular: normal peripheral pulses, normal rate Abdomen: normal bowel sounds, soft, non tender Extremities: no cyanosis, no clubbing 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, no motor/sensory deficits Lymphatic: no neck adenopathy Laboratory Tests Test 01/21/18 07:20 White Blood Count 5.2 K/UL (4.8-10.8) Red Blood Count 3.81 M/UL (4.20-5.40) L Hemoglobin 9.9 G/DL (12.0-16.0) L Hematocrit 33.2 % (37.0-47.0) L Mean Corpuscular Volume 87 FL (80-99) Mean Corpuscular Hemoglobin 26.1 PG (27.0-31.0) L Mean Corpuscular Hemoglobin Concent 29.9 G/DL (32.0-36.0) L Red Cell Distribution Width 14.9 % (11.6-14.8) H Platelet Count 134 K/UL (150-450) L Mean Platelet Volume 6.7 FL (6.5-10.1) Neutrophils (%) (Auto) 44.0 % (45.0-75.0) L Lymphocytes (%) (Auto) 49.9 % (20.0-45.0) H Monocytes (%) (Auto) 5.0 % (1.0-10.0) Eosinophils (%) (Auto) 0.3 % (0.0-3.0) Basophils (%) (Auto) 0.8 % (0.0-2.0) Sodium Level 144 MMOL/L (136-145) Potassium Level 3.7 MMOL/L (3.5-5.1) Chloride Level 101 MMOL/L (98-107) Carbon Dioxide Level 41 MMOL/L (21-32) *H Anion Gap 3 mmol/L (5-15) L Blood Urea Nitrogen 8 mg/dL (7-18) Creatinine 0.7 MG/DL (0.55-1.30) Estimat Glomerular Filtration Rate > 60 mL/min (>60) Glucose Level 92 MG/DL (74-106) Calcium Level 9.7 MG/DL (8.5-10.1) Current Medications Medications (Trade) Dose Ordered Sig/Hansel Route PRN Reason Start Time Stop Time Status Last Admin Dose Admin Albuterol/ Ipratropium (Albuterol/ Ipratropium) 3 ml Q6H PRN HHN Shortness of Breath 01/20/18 16:30 01/27/18 16:29 Clonidine HCl (Catapres Tab) 0.1 mg Q4H PRN ORAL sbp more than 160mmHg 01/20/18 16:30 02/19/18 16:29 Dextrose (Dextrose 50%) 25 ml STAT PRN IV Blood Sugar btwn 60-69 mg/dL 01/20/18 16:30 02/19/18 16:29 Dextrose (Dextrose 50%) 50 ml STAT PRN IV BS less than 60mg/dl 01/20/18 16:30 02/19/18 16:29 Docusate Sodium (Colace) 100 mg THREE TIMES A DAY ORAL 01/20/18 18:00 02/19/18 17:59 01/21/18 09:08 Insulin Aspart (NovoLOG) BEFORE MEALS AND HS SUBQ 01/20/18 16:30 02/19/18 16:29 01/21/18 06:26 Insulin Aspart (NovoLOG) 12 units NOVOTIAC SUBQ 01/20/18 16:50 01/23/18 07:29 01/21/18 06:25 Insulin Detemir (Levemir) 20 units EVERY 12 HOURS SUBQ 01/20/18 21:00 02/19/18 08:59 01/21/18 09:10 Lorazepam (Ativan) 0.5 mg Q4H PRN ORAL For Anxiety 01/20/18 16:30 01/25/18 16:29 Mineral Oil (Fleet's Mineral Oil Enema) 133 ml EVERY OTHER DAY RECTAL 01/22/18 09:00 01/22/18 09:59 Polyethylene Glycol (Miralax) 17 gm BEDTIME ORAL 01/20/18 21:00 02/19/18 20:59 01/20/18 21:07 Promethazine HCl/ Codeine (Phenergan with Codeine) 5 ml Q6H PRN ORAL cough 01/20/18 16:30 01/23/18 16:29 Sennosides (Senokot) 1 tab DAILY ORAL 01/21/18 09:00 02/19/18 08:59 01/21/18 09:08 Vitamin A/Vitamin D (A & D Oint) 1 applic EVERY 12 HOURS TOPIC 01/20/18 21:00 02/19/18 20:59 01/21/18 09:19 Caterina Elizondo M.D. January 21, 2018 12:00
--- NOTE | 2018-01-21 12:44 | Pulmonology Progress Note ---
Assessment/Plan Problems: (1) Acute and chronic respiratory failure (2) COPD (chronic obstructive pulmonary disease) (3) Hepatitis C Assessment/Plan had an episode of tachycardia yesterday and transferred to telemetry. no new events no new complains respiratory treatment cardiology following med/surg if ok with cardiology Subjective ROS Limited/Unobtainable: No Constitutional: Reports: no symptoms HEENT: Repors: no symptoms Respiratory: Reports: no symptoms Cardiovascular: Reports: no symptoms Allergies: Coded Allergies: Shrimp (Unverified Allergy, Unknown, 12/04/17) Objective Last 24 Hour Vital Signs Date Time Temp Pulse Resp B/P (MAP) Pulse Ox O2 Delivery O2 Flow Rate FiO2 01/21/18 08:40 90 18 Nasal Cannula 2.0 28 01/21/18 08:40 Nasal Cannula 2.0 28 01/21/18 08:40 98 Nasal Cannula 2.0 28 01/21/18 08:30 98.4 98 18 109/58 100 Nasal Cannula 2.0 98.4 01/21/18 07:23 107 01/21/18 04:00 98.7 110 20 111/65 100 Nasal Cannula 2.0 98.7 01/21/18 04:00 125 01/21/18 00:00 98.2 100 24 114/61 100 Nasal Cannula 2.0 98.2 01/20/18 20:00 98.7 110 20 111/65 100 Nasal Cannula 2.0 98.7 110 01/20/18 19:30 Nasal Cannula 2.0 28 01/20/18 19:30 110 18 Nasal Cannula 2.0 28 01/20/18 19:30 95 Nasal Cannula 2.0 28 01/20/18 16:00 98.1 102 20 105/57 98 Nasal Cannula 2.0 98.1 Intake and Output 01/20/18 01/21/18 19:00 07:00 Intake Total 480 ml Balance 480 ml Intake Oral 480 ml # Voids 5 Objective General Appearance: cachetic HEENT: normocephalic Respiratory/Chest: chest wall non-tender, lungs clear Breasts: no masses Cardiovascular: normal peripheral pulses, normal rate Abdomen: normal bowel sounds, soft, non tender Extremities: no cyanosis, no clubbing 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, no motor/sensory deficits Lymphatic: no neck adenopathy Laboratory Tests 01/21/18 07:20: White Blood Count 5.2, Red Blood Count 3.81L, Hemoglobin 9.9L, Hematocrit 33.2L , Mean Corpuscular Volume 87, Mean Corpuscular Hemoglobin 26.1L, Mean Corpuscular Hemoglobin Concent 29.9L, Red Cell Distribution Width 14.9H, Platelet Count 134L, Mean Platelet Volume 6.7, Neutrophils (%) (Auto) 44.0L, Lymphocytes (%) (Auto) 49.9H, Monocytes (%) (Auto) 5.0, Eosinophils (%) (Auto) 0.3, Basophils (%) (Auto) 0.8, Sodium Level 144, Potassium Level 3.7, Chloride Level 101, Carbon Dioxide Level 41*H, Anion Gap 3L, Blood Urea Nitrogen 8, Creatinine 0.7, Estimat Glomerular Filtration Rate > 60, Glucose Level 92, Calcium Level 9.7 Current Medications Medications (Trade) Dose Ordered Sig/Hansel Route PRN Reason Start Time Stop Time Status Last Admin Dose Admin Albuterol/ Ipratropium (Albuterol/ Ipratropium) 3 ml Q6H PRN HHN Shortness of Breath 01/20/18 16:30 01/27/18 16:29 Clonidine HCl (Catapres Tab) 0.1 mg Q4H PRN ORAL sbp more than 160mmHg 01/20/18 16:30 02/19/18 16:29 Dextrose (Dextrose 50%) 25 ml STAT PRN IV Blood Sugar btwn 60-69 mg/dL 01/20/18 16:30 02/19/18 16:29 Dextrose (Dextrose 50%) 50 ml STAT PRN IV BS less than 60mg/dl 01/20/18 16:30 02/19/18 16:29 Docusate Sodium (Colace) 100 mg THREE TIMES A DAY ORAL 01/20/18 18:00 02/19/18 17:59 01/21/18 09:08 Insulin Aspart (NovoLOG) BEFORE MEALS AND HS SUBQ 01/20/18 16:30 02/19/18 16:29 01/21/18 06:26 Insulin Aspart (NovoLOG) 12 units NOVOTIAC SUBQ 01/20/18 16:50 01/23/18 07:29 01/21/18 06:25 Insulin Detemir (Levemir) 20 units EVERY 12 HOURS SUBQ 01/20/18 21:00 02/19/18 08:59 01/21/18 09:10 Lorazepam (Ativan) 0.5 mg Q4H PRN ORAL For Anxiety 01/20/18 16:30 01/25/18 16:29 Mineral Oil (Fleet's Mineral Oil Enema) 133 ml EVERY OTHER DAY RECTAL 01/22/18 09:00 01/22/18 09:59 Polyethylene Glycol (Miralax) 17 gm BEDTIME ORAL 01/20/18 21:00 02/19/18 20:59 01/20/18 21:07 Promethazine HCl/ Codeine (Phenergan with Codeine) 5 ml Q6H PRN ORAL cough 01/20/18 16:30 01/23/18 16:29 Sennosides (Senokot) 1 tab DAILY ORAL 01/21/18 09:00 02/19/18 08:59 01/21/18 09:08 Vitamin A/Vitamin D (A & D Oint) 1 applic EVERY 12 HOURS TOPIC 01/20/18 21:00 02/19/18 20:59 01/21/18 09:19 Leni Watts MD January 21, 2018 12:44
[2018-01-21 16:15] VITALS: BP 114/64
--- NOTE | 2018-01-21 19:18 | Cardiology Progress Note ---
Assessment/Plan Assessment/Plan 1. Sinus tachycardia with premature atrial complexes. 2. Chronic obstructive pulmonary disease. 3. Diabetes mellitus. 4. Hypertension history tele sinu tachy to sinus rhtym with pac i dcd beta agonist inhalers hr seem ok ekg insu with pac ok ot med surg Subjective Cardiovascular: Denies: chest pain, lightheadedness Respiratory: Reports: shortness of breath Gastrointestinal/Abdominal: Denies: abdominal pain Genitourinary: Denies: burning Objective Last 24 Hour Vital Signs Date Time Temp Pulse Resp B/P (MAP) Pulse Ox O2 Delivery O2 Flow Rate FiO2 01/21/18 16:15 97.9 97 20 114/64 97 Nasal Cannula 2.0 97.9 01/21/18 16:00 103 01/21/18 12:00 98.0 96 20 117/65 98 Nasal Cannula 2.0 98.0 01/21/18 11:43 99 01/21/18 08:40 90 18 Nasal Cannula 2.0 28 01/21/18 08:40 Nasal Cannula 2.0 28 01/21/18 08:40 98 Nasal Cannula 2.0 28 01/21/18 08:30 98.4 98 18 109/58 100 Nasal Cannula 2.0 98.4 01/21/18 07:23 107 01/21/18 04:00 98.7 110 20 111/65 100 Nasal Cannula 2.0 98.7 01/21/18 04:00 125 01/21/18 00:00 98.2 100 24 114/61 100 Nasal Cannula 2.0 98.2 01/20/18 20:00 98.7 110 20 111/65 100 Nasal Cannula 2.0 98.7 110 01/20/18 19:30 Nasal Cannula 2.0 28 01/20/18 19:30 110 18 Nasal Cannula 2.0 28 01/20/18 19:30 95 Nasal Cannula 2.0 28 General Appearance: no apparent distress, alert Cardiovascular: normal rate Respiratory/Chest: decreased breath sounds, crackles/rales Abdomen: normal bowel sounds, non tender, soft Extremities: no swelling Intake and Output 01/20/18 01/21/18 19:00 07:00 Intake Total 480 ml Balance 480 ml Intake Oral 480 ml # Voids 5 Laboratory Tests Test 01/21/18 07:20 White Blood Count 5.2 K/UL (4.8-10.8) Red Blood Count 3.81 M/UL (4.20-5.40) L Hemoglobin 9.9 G/DL (12.0-16.0) L Hematocrit 33.2 % (37.0-47.0) L Mean Corpuscular Volume 87 FL (80-99) Mean Corpuscular Hemoglobin 26.1 PG (27.0-31.0) L Mean Corpuscular Hemoglobin Concent 29.9 G/DL (32.0-36.0) L Red Cell Distribution Width 14.9 % (11.6-14.8) H Platelet Count 134 K/UL (150-450) L Mean Platelet Volume 6.7 FL (6.5-10.1) Neutrophils (%) (Auto) 44.0 % (45.0-75.0) L Lymphocytes (%) (Auto) 49.9 % (20.0-45.0) H Monocytes (%) (Auto) 5.0 % (1.0-10.0) Eosinophils (%) (Auto) 0.3 % (0.0-3.0) Basophils (%) (Auto) 0.8 % (0.0-2.0) Sodium Level 144 MMOL/L (136-145) Potassium Level 3.7 MMOL/L (3.5-5.1) Chloride Level 101 MMOL/L (98-107) Carbon Dioxide Level 41 MMOL/L (21-32) *H Anion Gap 3 mmol/L (5-15) L Blood Urea Nitrogen 8 mg/dL (7-18) Creatinine 0.7 MG/DL (0.55-1.30) Estimat Glomerular Filtration Rate > 60 mL/min (>60) Glucose Level 92 MG/DL (74-106) Calcium Level 9.7 MG/DL (8.5-10.1) STEVO WAGNER January 21, 2018 19:18
[2018-01-21 20:00] VITALS: BP 123/71
[2018-01-21] MEDS ORDERED: Albuterol/Ipratropium 3ml neb HHN PRN (21:00)
[2018-01-21] MEDS ORDERED: Promethazine/Codeine 5ml UD ORAL PRN (21:00)
[2018-01-21] MEDS ORDERED: LORazepam 0.5mg tab ORAL PRN (21:00)
[2018-01-21] MEDS ORDERED: Levemir Flexpen SUBQ SCH (21:00)
[2018-01-21] MEDS: Miralax 17gm pkt ORAL SCH (21:32)
[2018-01-22] VITALS: BP 115/65
[2018-01-22 04:00] VITALS: BP 120/71
[2018-01-22] MEDS: NovoLOG Insulin Flexpen SUBQ SCH ×6 (05:41→20:37)
--- NOTE | 2018-01-22 06:13 | General Progress Note ---
Assessment/Plan Problem List: (1) Diabetes mellitus out of control ICD Codes: E11.65 - Type 2 diabetes mellitus with hyperglycemia SNOMED: 61363299, 551302763 (2) COPD (chronic obstructive pulmonary disease) ICD Codes: J44.9 - Chronic obstructive pulmonary disease, unspecified SNOMED: 21772884 (3) Acute and chronic respiratory failure ICD Codes: J96.20 - Acute and chronic respiratory failure, unspecified whether with hypoxia or hypercapnia SNOMED: 34739728 Assessment/Plan reduce Levemir to 15 units bid reduce Novolog to 8 units ac tid continue NISS Subjective ROS Limited/Unobtainable: Yes Allergies: Coded Allergies: Shrimp (Unverified Allergy, Unknown, 12/04/17) Subjective events noted Objective Last 24 Hour Vital Signs Date Time Temp Pulse Resp B/P (MAP) Pulse Ox O2 Delivery O2 Flow Rate FiO2 01/22/18 04:00 96 Nasal Cannula 2.0 01/22/18 04:00 97.0 107 21 120/71 96 97.0 01/22/18 00:00 97.3 94 20 115/65 95 97.3 01/22/18 00:00 95 Nasal Cannula 2.0 01/21/18 20:25 Nasal Cannula 2.0 28 01/21/18 20:25 96 Nasal Cannula 2.0 28 01/21/18 20:25 96 18 Nasal Cannula 2.0 28 01/21/18 20:00 97.9 107 20 123/71 96 Nasal Cannula 2.0 97.9 01/21/18 20:00 108 01/21/18 16:15 97.9 97 20 114/64 97 Nasal Cannula 2.0 97.9 01/21/18 16:00 103 01/21/18 12:00 98.0 96 20 117/65 98 Nasal Cannula 2.0 98.0 01/21/18 11:43 99 01/21/18 08:40 90 18 Nasal Cannula 2.0 28 01/21/18 08:40 Nasal Cannula 2.0 28 01/21/18 08:40 98 Nasal Cannula 2.0 28 01/21/18 08:30 98.4 98 18 109/58 100 Nasal Cannula 2.0 98.4 01/21/18 07:23 107 Intake and Output 01/21/18 01/22/18 19:00 07:00 Intake Total 590 ml Balance 590 ml Intake Oral 590 ml # Voids 3 Laboratory Tests 01/21/18 07:20: White Blood Count 5.2, Red Blood Count 3.81L, Hemoglobin 9.9L, Hematocrit 33.2L , Mean Corpuscular Volume 87, Mean Corpuscular Hemoglobin 26.1L, Mean Corpuscular Hemoglobin Concent 29.9L, Red Cell Distribution Width 14.9H, Platelet Count 134L, Mean Platelet Volume 6.7, Neutrophils (%) (Auto) 44.0L, Lymphocytes (%) (Auto) 49.9H, Monocytes (%) (Auto) 5.0, Eosinophils (%) (Auto) 0.3, Basophils (%) (Auto) 0.8, Sodium Level 144, Potassium Level 3.7, Chloride Level 101, Carbon Dioxide Level 41*H, Anion Gap 3L, Blood Urea Nitrogen 8, Creatinine 0.7, Estimat Glomerular Filtration Rate > 60, Glucose Level 92, Calcium Level 9.7 Height (Feet): 5 Height (Inches): 4.00 Weight (Pounds): 145 General Appearance: no apparent distress Neck: normal alignment Cardiovascular: normal rate Respiratory/Chest: decreased breath sounds Abdomen: normal bowel sounds Pelvis: normal external exam Objective Current Medications Medications (Trade) Dose Ordered Sig/Hansel Route PRN Reason Start Time Stop Time Status Last Admin Dose Admin Albuterol/ Ipratropium (Albuterol/ Ipratropium) 3 ml Q6H PRN HHN Shortness of Breath 01/21/18 21:00 01/27/18 20:59 Clonidine HCl (Catapres Tab) 0.1 mg Q4H PRN ORAL sbp more than 160mmHg 01/21/18 21:00 02/20/18 20:59 Dextrose (Dextrose 50%) 25 ml STAT PRN IV Blood Sugar btwn 60-69 mg/dL 01/21/18 21:00 02/20/18 20:59 Dextrose (Dextrose 50%) 50 ml STAT PRN IV BS less than 60mg/dl 01/21/18 21:00 02/20/18 20:59 Docusate Sodium (Colace) 100 mg THREE TIMES A DAY ORAL 01/22/18 09:00 02/19/18 17:59 Insulin Aspart (NovoLOG) BEFORE MEALS AND HS SUBQ 01/21/18 21:00 02/19/18 16:29 01/22/18 05:41 Insulin Aspart (NovoLOG) 12 units NOVOTIAC SUBQ 01/22/18 06:30 01/23/18 07:29 01/22/18 05:40 Insulin Detemir (Levemir) 20 units EVERY 12 HOURS SUBQ 01/21/18 21:00 02/19/18 08:59 Lorazepam (Ativan) 0.5 mg Q4H PRN ORAL For Anxiety 01/21/18 21:00 01/28/18 20:59 Mineral Oil (Fleet's Mineral Oil Enema) 133 ml EVERY OTHER DAY RECTAL 01/22/18 09:00 01/22/18 09:59 Polyethylene Glycol (Miralax) 17 gm BEDTIME ORAL 01/21/18 21:00 02/19/18 20:59 01/21/18 21:32 Promethazine HCl/ Codeine (Phenergan with Codeine) 5 ml Q6H PRN ORAL cough 01/21/18 21:00 01/23/18 20:59 Sennosides (Senokot) 1 tab DAILY ORAL 01/22/18 09:00 02/19/18 08:59 Vitamin A/Vitamin D (A & D Oint) 1 applic EVERY 12 HOURS TOPIC 01/21/18 21:00 02/19/18 20:59 01/21/18 21:33 Item Value Date Time Bedside Blood Glucose 245 mg/dl H 01/22/18 0606 Bedside Blood Glucose 125 mg/dl H 01/21/18 2228 Bedside Blood Glucose 250 mg/dl H 01/21/18 1822 Bedside Blood Glucose 144 mg/dl H 01/21/18 1332 Bedside Blood Glucose 141 mg/dl H 01/21/18 0910 Bedside Blood Glucose 141 mg/dl H 01/21/18 0626 FEMI MCKEON January 22, 2018 06:13
[2018-01-22] MEDS ORDERED: NovoLOG Insulin Flexpen SUBQ SCH (06:30)
[2018-01-22 08:05] VITALS: BP 112/52
[2018-01-22] MEDS: Sennosides 8.6mg ORAL SCH (08:26)
[2018-01-22] MEDS: Vitamin A&D Oint 2oz Tube TOPIC SCH ×2 (08:27→20:37)
[2018-01-22] MEDS: Docusate 100mg cap ORAL SCH ×3 (08:27→17:26)
[2018-01-22] MEDS: Levemir Flexpen SUBQ SCH ×2 (08:28→20:36)
[2018-01-22] MEDS ORDERED: Fleet's Mineral Oil Enema RECTAL SCH ×2 (09:00)
[2018-01-22 09:42] LABS: HEMATOCRIT 33.2 % (37.0-47.0); MEAN CORPUSCULAR VOLUME 87 FL (80-99); RED BLOOD COUNT 3.84 M/UL (4.20-5.40); RED CELL DISTRIBUTION WIDTH 14.3 % (11.6-14.8); WHITE BLOOD COUNT 5.1 K/UL (4.8-10.8)
[2018-01-22 10:15] LABS: PLATELET COUNT 70 K/UL (150-450)
--- NOTE | 2018-01-22 10:32 | Diagnostic Imaging Report ---
Indication: Dyspnea Comparison: 12/31/2017 A single view chest radiograph was obtained. Findings: Blunted left costophrenic angle demonstrated. Prominent central pulmonary vascularity with cephalization noted. No definite interstitial or airspace disease identified. The heart is mildly enlarged. IMPRESSION: Mild pulmonary vascular congestion may be present. Correlate clinically. Left pleural effusion suspected
--- NOTE | 2018-01-22 11:27 | Infectious Diseases Prog Note ---
Assessment/Plan Assessment/Plan Assessment: Acute hypoxic resp failure improved COPD exacerbation, s/p -CXR 01/21: Mild pulmonary vascular congestion may be present. Correlate clinically. Left pleural effusion suspected -CXR: No acute disease Afebrile, no leukocytosis Recent acute hypoxic failure and PNA 11/2015 -sp cx 12/04: E.coli (davila S), P. mirabilis (davila S) Influenza sc : Neg transaminitis improving Chronic Hep C, untreated VL 3.8 m,illions Hep panel : A Imm ; B not immune HIV Neg hx of trach s/p removal COPD Dm2 HTN [facility] resident Plan: - Monitor pt off of AB Rx -12/24 SP Levaquin # 5 /5 -12/10 SP Cefepime #7 -12/06 SP Vanco #3 -Monitor CBC/BMP, temperatures -aspiration precautions Hem fup, re TCP needs treatment of Hep C as outpatient needs Hep B vaccine as outpatient Subjective Allergies: Coded Allergies: Shrimp (Unverified Allergy, Unknown, 12/04/17) Subjective afebrile off abx no leukcoytosis Objective Vital Signs Last 24 Hour Vital Signs Date Time Temp Pulse Resp B/P (MAP) Pulse Ox O2 Delivery O2 Flow Rate FiO2 01/22/18 08:05 98.2 103 24 112/52 93 98.2 01/22/18 07:45 Nasal Cannula 2.0 28 01/22/18 07:45 95 Nasal Cannula 2.0 28 01/22/18 07:45 101 23 Nasal Cannula 2.0 28 01/22/18 04:00 96 Nasal Cannula 2.0 01/22/18 04:00 97.0 107 21 120/71 96 97.0 01/22/18 00:00 97.3 94 20 115/65 95 97.3 01/22/18 00:00 95 Nasal Cannula 2.0 01/21/18 20:25 Nasal Cannula 2.0 28 01/21/18 20:25 96 Nasal Cannula 2.0 28 01/21/18 20:25 96 18 Nasal Cannula 2.0 28 01/21/18 20:00 97.9 107 20 123/71 96 Nasal Cannula 2.0 97.9 01/21/18 20:00 108 01/21/18 16:15 97.9 97 20 114/64 97 Nasal Cannula 2.0 97.9 01/21/18 16:00 103 01/21/18 12:00 98.0 96 20 117/65 98 Nasal Cannula 2.0 98.0 01/21/18 11:43 99 Height (Feet): 5 Height (Inches): 4.00 Weight (Pounds): 145 Objective General Appearance: cachetic HEENT: normocephalic Respiratory/Chest: chest wall non-tender, lungs clear Breasts: no masses Cardiovascular: normal peripheral pulses, normal rate Abdomen: normal bowel sounds, soft, non tender Extremities: no cyanosis, no clubbing 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, no motor/sensory deficits Lymphatic: no neck adenopathy Laboratory Tests Test 01/22/18 07:30 White Blood Count 5.1 K/UL (4.8-10.8) Red Blood Count 3.84 M/UL (4.20-5.40) L Hemoglobin 10.0 G/DL (12.0-16.0) L Hematocrit 33.2 % (37.0-47.0) L Mean Corpuscular Volume 87 FL (80-99) Mean Corpuscular Hemoglobin 26.0 PG (27.0-31.0) L Mean Corpuscular Hemoglobin Concent 30.1 G/DL (32.0-36.0) L Red Cell Distribution Width 14.3 % (11.6-14.8) Platelet Count 70 K/UL (150-450) L Mean Platelet Volume 8.9 FL (6.5-10.1) Neutrophils (%) (Auto) % (45.0-75.0) Lymphocytes (%) (Auto) % (20.0-45.0) Monocytes (%) (Auto) % (1.0-10.0) Eosinophils (%) (Auto) % (0.0-3.0) Basophils (%) (Auto) % (0.0-2.0) Differential Total Cells Counted 100 Neutrophils % (Manual) 41 % (45-75) L Lymphocytes % (Manual) 55 % (20-45) H Monocytes % (Manual) 4 % (1-10) Eosinophils % (Manual) 0 % (0-3) Basophils % (Manual) 0 % (0-2) Band Neutrophils 0 % (0-8) Platelet Estimate Decreased L Platelet Morphology Normal Hypochromasia 2+ Current Medications Medications (Trade) Dose Ordered Sig/Hansel Route PRN Reason Start Time Stop Time Status Last Admin Dose Admin Albuterol/ Ipratropium (Albuterol/ Ipratropium) 3 ml Q6H PRN HHN Shortness of Breath 01/21/18 21:00 01/27/18 20:59 Clonidine HCl (Catapres Tab) 0.1 mg Q4H PRN ORAL sbp more than 160mmHg 01/21/18 21:00 02/20/18 20:59 Dextrose (Dextrose 50%) 25 ml STAT PRN IV Blood Sugar btwn 60-69 mg/dL 01/21/18 21:00 02/20/18 20:59 Dextrose (Dextrose 50%) 50 ml STAT PRN IV BS less than 60mg/dl 01/21/18 21:00 02/20/18 20:59 Docusate Sodium (Colace) 100 mg THREE TIMES A DAY ORAL 01/22/18 09:00 02/19/18 17:59 01/22/18 08:27 Insulin Aspart (NovoLOG) BEFORE MEALS AND HS SUBQ 01/21/18 21:00 02/19/18 16:29 01/22/18 05:41 Insulin Aspart (NovoLOG) 8 units NOVOTIAC SUBQ 01/22/18 11:50 01/23/18 11:49 Insulin Detemir (Levemir) 15 units EVERY 12 HOURS SUBQ 01/22/18 09:00 02/19/18 08:59 01/22/18 08:28 Lorazepam (Ativan) 0.5 mg Q4H PRN ORAL For Anxiety 01/21/18 21:00 01/28/18 20:59 Polyethylene Glycol (Miralax) 17 gm BEDTIME ORAL 01/21/18 21:00 02/19/18 20:59 01/21/18 21:32 Promethazine HCl/ Codeine (Phenergan with Codeine) 5 ml Q6H PRN ORAL cough 01/21/18 21:00 01/23/18 20:59 Sennosides (Senokot) 1 tab DAILY ORAL 01/22/18 09:00 02/19/18 08:59 01/22/18 08:26 Vitamin A/Vitamin D (A & D Oint) 1 applic EVERY 12 HOURS TOPIC 01/21/18 21:00 02/19/18 20:59 01/22/18 08:27 Caterina Elizondo M.D. January 22, 2018 11:27
--- NOTE | 2018-01-22 12:21 | Pulmonology Progress Note ---
Assessment/Plan Problems: (1) Acute and chronic respiratory failure (2) COPD (chronic obstructive pulmonary disease) (3) Hepatitis C Assessment/Plan doesn't want to be bothered no new events no new complains respiratory treatment Subjective ROS Limited/Unobtainable: No Constitutional: Reports: no symptoms HEENT: Repors: no symptoms Respiratory: Reports: no symptoms Allergies: Coded Allergies: Shrimp (Unverified Allergy, Unknown, 12/04/17) Objective Last 24 Hour Vital Signs Date Time Temp Pulse Resp B/P (MAP) Pulse Ox O2 Delivery O2 Flow Rate FiO2 01/22/18 08:05 98.2 103 24 112/52 93 98.2 01/22/18 07:45 Nasal Cannula 2.0 28 01/22/18 07:45 95 Nasal Cannula 2.0 28 01/22/18 07:45 101 23 Nasal Cannula 2.0 28 01/22/18 04:00 96 Nasal Cannula 2.0 01/22/18 04:00 97.0 107 21 120/71 96 97.0 01/22/18 00:00 97.3 94 20 115/65 95 97.3 01/22/18 00:00 95 Nasal Cannula 2.0 01/21/18 20:25 Nasal Cannula 2.0 28 01/21/18 20:25 96 Nasal Cannula 2.0 28 01/21/18 20:25 96 18 Nasal Cannula 2.0 28 01/21/18 20:00 97.9 107 20 123/71 96 Nasal Cannula 2.0 97.9 01/21/18 20:00 108 01/21/18 16:15 97.9 97 20 114/64 97 Nasal Cannula 2.0 97.9 01/21/18 16:00 103 Intake and Output 01/21/18 01/22/18 19:00 07:00 Intake Total 590 ml Balance 590 ml Intake Oral 590 ml # Voids 3 Objective General Appearance: cachetic HEENT: normocephalic Respiratory/Chest: chest wall non-tender, lungs clear Breasts: no masses Cardiovascular: normal peripheral pulses, normal rate Abdomen: normal bowel sounds, soft, non tender Extremities: no cyanosis, no clubbing 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, no motor/sensory deficits Lymphatic: no neck adenopathy Laboratory Tests 01/22/18 07:30: White Blood Count 5.1, Red Blood Count 3.84L, Hemoglobin 10.0L, Hematocrit 33.2L , Mean Corpuscular Volume 87, Mean Corpuscular Hemoglobin 26.0L, Mean Corpuscular Hemoglobin Concent 30.1L, Red Cell Distribution Width 14.3, Platelet Count 70L, Mean Platelet Volume 8.9, Neutrophils (%) (Auto) , Lymphocytes (%) (Auto) , Monocytes (%) (Auto) , Eosinophils (%) (Auto) , Basophils (%) (Auto) , Differential Total Cells Counted 100, Neutrophils % ( Manual) 41L, Lymphocytes % (Manual) 55H, Monocytes % (Manual) 4, Eosinophils % ( Manual) 0, Basophils % (Manual) 0, Band Neutrophils 0, Platelet Estimate DecreasedL, Platelet Morphology Normal, Hypochromasia 2+ Current Medications Medications (Trade) Dose Ordered Sig/Hansel Route PRN Reason Start Time Stop Time Status Last Admin Dose Admin Albuterol/ Ipratropium (Albuterol/ Ipratropium) 3 ml Q6H PRN HHN Shortness of Breath 01/21/18 21:00 01/27/18 20:59 Clonidine HCl (Catapres Tab) 0.1 mg Q4H PRN ORAL sbp more than 160mmHg 01/21/18 21:00 02/20/18 20:59 Dextrose (Dextrose 50%) 25 ml STAT PRN IV Blood Sugar btwn 60-69 mg/dL 01/21/18 21:00 02/20/18 20:59 Dextrose (Dextrose 50%) 50 ml STAT PRN IV BS less than 60mg/dl 01/21/18 21:00 02/20/18 20:59 Docusate Sodium (Colace) 100 mg THREE TIMES A DAY ORAL 01/22/18 09:00 02/19/18 17:59 01/22/18 08:27 Insulin Aspart (NovoLOG) BEFORE MEALS AND HS SUBQ 01/21/18 21:00 02/19/18 16:29 01/22/18 11:30 Insulin Aspart (NovoLOG) 8 units NOVOTIAC SUBQ 01/22/18 11:50 01/23/18 11:49 01/22/18 12:00 Insulin Detemir (Levemir) 15 units EVERY 12 HOURS SUBQ 01/22/18 09:00 02/19/18 08:59 01/22/18 08:28 Lorazepam (Ativan) 0.5 mg Q4H PRN ORAL For Anxiety 01/21/18 21:00 01/28/18 20:59 Polyethylene Glycol (Miralax) 17 gm BEDTIME ORAL 01/21/18 21:00 02/19/18 20:59 01/21/18 21:32 Promethazine HCl/ Codeine (Phenergan with Codeine) 5 ml Q6H PRN ORAL cough 01/21/18 21:00 01/23/18 20:59 Sennosides (Senokot) 1 tab DAILY ORAL 01/22/18 09:00 02/19/18 08:59 01/22/18 08:26 Vitamin A/Vitamin D (A & D Oint) 1 applic EVERY 12 HOURS TOPIC 01/21/18 21:00 02/19/18 20:59 01/22/18 08:27 Leni Watts MD January 22, 2018 12:21
[2018-01-22 12:44] VITALS: BP 114/60
--- NOTE | 2018-01-22 14:09 | General Progress Note ---
Assessment/Plan Problem List: (1) Hyperkalemia ICD Codes: E87.5 - Hyperkalemia SNOMED: 77204980 (2) Acidosis ICD Codes: E87.2 - Acidosis SNOMED: 86945154 (3) CO2 retention ICD Codes: E87.2 - Acidosis SNOMED: 62911220 (4) Respiratory distress ICD Codes: R06.03 - Acute respiratory distress SNOMED: 472387077 (5) COPD (chronic obstructive pulmonary disease) ICD Codes: J44.9 - Chronic obstructive pulmonary disease, unspecified SNOMED: 43024709 (6) Hepatitis C ICD Codes: B19.20 - Unspecified viral hepatitis C without hepatic coma SNOMED: 22525664 (7) Acute and chronic respiratory failure ICD Codes: J96.20 - Acute and chronic respiratory failure, unspecified whether with hypoxia or hypercapnia SNOMED: 17156502 (8) Diabetes mellitus out of control ICD Codes: E11.65 - Type 2 diabetes mellitus with hyperglycemia SNOMED: 63023327, 277833386 (9) Tachycardia ICD Codes: R00.0 - Tachycardia, unspecified SNOMED: 9390826 (10) Hypertension ICD Codes: I10 - Essential (primary) hypertension SNOMED: 15974370 Status: stable, progressing Assessment/Plan 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 Objective Last 24 Hour Vital Signs Date Time Temp Pulse Resp B/P (MAP) Pulse Ox O2 Delivery O2 Flow Rate FiO2 01/22/18 12:44 97.9 111 22 114/60 93 97.9 01/22/18 08:05 98.2 103 24 112/52 93 98.2 01/22/18 07:45 Nasal Cannula 2.0 28 01/22/18 07:45 95 Nasal Cannula 2.0 28 01/22/18 07:45 101 23 Nasal Cannula 2.0 28 01/22/18 04:00 96 Nasal Cannula 2.0 01/22/18 04:00 97.0 107 21 120/71 96 97.0 01/22/18 00:00 97.3 94 20 115/65 95 97.3 01/22/18 00:00 95 Nasal Cannula 2.0 01/21/18 20:25 Nasal Cannula 2.0 28 01/21/18 20:25 96 Nasal Cannula 2.0 28 01/21/18 20:25 96 18 Nasal Cannula 2.0 28 01/21/18 20:00 97.9 107 20 123/71 96 Nasal Cannula 2.0 97.9 01/21/18 20:00 108 01/21/18 16:15 97.9 97 20 114/64 97 Nasal Cannula 2.0 97.9 01/21/18 16:00 103 Intake and Output 01/21/18 01/22/18 19:00 07:00 Intake Total 590 ml Balance 590 ml Intake Oral 590 ml # Voids 3 Laboratory Tests 01/22/18 07:30: White Blood Count 5.1, Red Blood Count 3.84L, Hemoglobin 10.0L, Hematocrit 33.2L , Mean Corpuscular Volume 87, Mean Corpuscular Hemoglobin 26.0L, Mean Corpuscular Hemoglobin Concent 30.1L, Red Cell Distribution Width 14.3, Platelet Count 70L, Mean Platelet Volume 8.9, Neutrophils (%) (Auto) , Lymphocytes (%) (Auto) , Monocytes (%) (Auto) , Eosinophils (%) (Auto) , Basophils (%) (Auto) , Differential Total Cells Counted 100, Neutrophils % ( Manual) 41L, Lymphocytes % (Manual) 55H, Monocytes % (Manual) 4, Eosinophils % ( Manual) 0, Basophils % (Manual) 0, Band Neutrophils 0, Platelet Estimate DecreasedL, Platelet Morphology Normal, Hypochromasia 2+ Height (Feet): 5 Height (Inches): 4.00 Weight (Pounds): 145 General Appearance: WD/WN, no apparent distress, alert Neurologic: depressed affect Grisel Jay M.D. January 22, 2018 14:09
--- NOTE | 2018-01-22 14:12 | Geriatric Progress Note ---
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 PLAN: 1. Cont current meds 2. Provided reality orientation Subjective Interval Events 01/20/18 Mood/Memory: Reports: prior hx, anxiety, depressed feelings Geriatric Geriatric Last 24 Hour Vital Signs Date Time Temp Pulse Resp B/P (MAP) Pulse Ox O2 Delivery O2 Flow Rate FiO2 01/22/18 12:44 97.9 111 22 114/60 93 97.9 01/22/18 08:05 98.2 103 24 112/52 93 98.2 01/22/18 07:45 Nasal Cannula 2.0 28 01/22/18 07:45 95 Nasal Cannula 2.0 28 01/22/18 07:45 101 23 Nasal Cannula 2.0 28 01/22/18 04:00 96 Nasal Cannula 2.0 01/22/18 04:00 97.0 107 21 120/71 96 97.0 01/22/18 00:00 97.3 94 20 115/65 95 97.3 01/22/18 00:00 95 Nasal Cannula 2.0 01/21/18 20:25 Nasal Cannula 2.0 28 01/21/18 20:25 96 Nasal Cannula 2.0 28 01/21/18 20:25 96 18 Nasal Cannula 2.0 28 01/21/18 20:00 97.9 107 20 123/71 96 Nasal Cannula 2.0 97.9 01/21/18 20:00 108 01/21/18 16:15 97.9 97 20 114/64 97 Nasal Cannula 2.0 97.9 01/21/18 16:00 103 Intake and Output 01/21/18 01/22/18 19:00 07:00 Intake Total 590 ml Balance 590 ml Intake Oral 590 ml # Voids 3 Laboratory Tests Test 01/22/18 07:30 White Blood Count 5.1 K/UL (4.8-10.8) Red Blood Count 3.84 M/UL (4.20-5.40) L Hemoglobin 10.0 G/DL (12.0-16.0) L Hematocrit 33.2 % (37.0-47.0) L Mean Corpuscular Volume 87 FL (80-99) Mean Corpuscular Hemoglobin 26.0 PG (27.0-31.0) L Mean Corpuscular Hemoglobin Concent 30.1 G/DL (32.0-36.0) L Red Cell Distribution Width 14.3 % (11.6-14.8) Platelet Count 70 K/UL (150-450) L Mean Platelet Volume 8.9 FL (6.5-10.1) Neutrophils (%) (Auto) % (45.0-75.0) Lymphocytes (%) (Auto) % (20.0-45.0) Monocytes (%) (Auto) % (1.0-10.0) Eosinophils (%) (Auto) % (0.0-3.0) Basophils (%) (Auto) % (0.0-2.0) Differential Total Cells Counted 100 Neutrophils % (Manual) 41 % (45-75) L Lymphocytes % (Manual) 55 % (20-45) H Monocytes % (Manual) 4 % (1-10) Eosinophils % (Manual) 0 % (0-3) Basophils % (Manual) 0 % (0-2) Band Neutrophils 0 % (0-8) Platelet Estimate Decreased L Platelet Morphology Normal Hypochromasia 2+ Current Medications Medications (Trade) Dose Ordered Sig/Hansel Route PRN Reason Start Time Stop Time Status Last Admin Dose Admin Albuterol/ Ipratropium (Albuterol/ Ipratropium) 3 ml Q6H PRN HHN Shortness of Breath 01/21/18 21:00 01/27/18 20:59 Clonidine HCl (Catapres Tab) 0.1 mg Q4H PRN ORAL sbp more than 160mmHg 01/21/18 21:00 02/20/18 20:59 Dextrose (Dextrose 50%) 25 ml STAT PRN IV Blood Sugar btwn 60-69 mg/dL 01/21/18 21:00 02/20/18 20:59 Dextrose (Dextrose 50%) 50 ml STAT PRN IV BS less than 60mg/dl 01/21/18 21:00 02/20/18 20:59 Docusate Sodium (Colace) 100 mg THREE TIMES A DAY ORAL 01/22/18 09:00 02/19/18 17:59 01/22/18 13:25 Insulin Aspart (NovoLOG) BEFORE MEALS AND HS SUBQ 01/21/18 21:00 02/19/18 16:29 01/22/18 11:30 Insulin Aspart (NovoLOG) 8 units NOVOTIAC SUBQ 01/22/18 11:50 01/23/18 11:49 01/22/18 12:00 Insulin Detemir (Levemir) 15 units EVERY 12 HOURS SUBQ 01/22/18 09:00 02/19/18 08:59 01/22/18 08:28 Lorazepam (Ativan) 0.5 mg Q4H PRN ORAL For Anxiety 01/21/18 21:00 01/28/18 20:59 Polyethylene Glycol (Miralax) 17 gm BEDTIME ORAL 01/21/18 21:00 02/19/18 20:59 01/21/18 21:32 Promethazine HCl/ Codeine (Phenergan with Codeine) 5 ml Q6H PRN ORAL cough 01/21/18 21:00 01/23/18 20:59 Sennosides (Senokot) 1 tab DAILY ORAL 01/22/18 09:00 02/19/18 08:59 01/22/18 08:26 Vitamin A/Vitamin D (A & D Oint) 1 applic EVERY 12 HOURS TOPIC 01/21/18 21:00 02/19/18 20:59 01/22/18 08:27 Height (Feet): 5 Height (Inches): 4.00 Weight (Pounds): 145 General Appearance: well appearing, well dressed, alert Psychiatric Behavior: cooperative Language/Speech: intact Orientation: person, place, situation Affect: appropriate Insight: poor Grisel Jay M.D. January 22, 2018 14:12
[2018-01-22 15:52] VITALS: BP 124/75
--- NOTE | 2018-01-22 15:57 | Internal Med Progress Note ---
Subjective Date of Service: January 22, 2018 Physician Name Estefania Mckeon Attending Physician Tone Fried MD Current Medications Medications (Trade) Dose Ordered Sig/Hansel Route PRN Reason Start Time Stop Time Status Last Admin Dose Admin Albuterol/ Ipratropium (Albuterol/ Ipratropium) 3 ml Q6H PRN HHN Shortness of Breath 01/21/18 21:00 01/27/18 20:59 Clonidine HCl (Catapres Tab) 0.1 mg Q4H PRN ORAL sbp more than 160mmHg 01/21/18 21:00 02/20/18 20:59 Dextrose (Dextrose 50%) 25 ml STAT PRN IV Blood Sugar btwn 60-69 mg/dL 01/21/18 21:00 02/20/18 20:59 Dextrose (Dextrose 50%) 50 ml STAT PRN IV BS less than 60mg/dl 01/21/18 21:00 02/20/18 20:59 Docusate Sodium (Colace) 100 mg THREE TIMES A DAY ORAL 01/22/18 09:00 02/19/18 17:59 01/22/18 13:25 Insulin Aspart (NovoLOG) BEFORE MEALS AND HS SUBQ 01/21/18 21:00 02/19/18 16:29 01/22/18 11:30 Insulin Aspart (NovoLOG) 8 units NOVOTIAC SUBQ 01/22/18 11:50 01/23/18 11:49 01/22/18 12:00 Insulin Detemir (Levemir) 15 units EVERY 12 HOURS SUBQ 01/22/18 09:00 02/19/18 08:59 01/22/18 08:28 Lorazepam (Ativan) 0.5 mg Q4H PRN ORAL For Anxiety 01/21/18 21:00 01/28/18 20:59 Polyethylene Glycol (Miralax) 17 gm BEDTIME ORAL 01/21/18 21:00 02/19/18 20:59 01/21/18 21:32 Promethazine HCl/ Codeine (Phenergan with Codeine) 5 ml Q6H PRN ORAL cough 01/21/18 21:00 01/23/18 20:59 Sennosides (Senokot) 1 tab DAILY ORAL 01/22/18 09:00 02/19/18 08:59 01/22/18 08:26 Vitamin A/Vitamin D (A & D Oint) 1 applic EVERY 12 HOURS TOPIC 01/21/18 21:00 02/19/18 20:59 01/22/18 08:27 Allergies: Coded Allergies: Shrimp (Unverified Allergy, Unknown, 12/04/17) ROS Limited/Unobtainable: No Constitutional: Reports: no symptoms HEENT: Reports: no symptoms Cardiovascular: Reports: no symptoms Respiratory: Reports: shortness of breath Gastrointestinal/Abdominal: Reports: no symptoms Genitourinary: Reports: no symptoms Neurologic/Psychiatric: Reports: no symptoms Subjective 67 YO F admitted with respiratory failure. Now acute COPD exacerbation. Cover for Int Milly Fried. Objective Last Vital Signs Date Time Temp Pulse Resp B/P (MAP) Pulse Ox O2 Delivery O2 Flow Rate FiO2 01/22/18 15:52 97.7 105 22 124/75 99 97.7 01/22/18 07:45 Nasal Cannula 2.0 28 Laboratory Tests Test 01/22/18 07:30 White Blood Count 5.1 K/UL (4.8-10.8) Red Blood Count 3.84 M/UL (4.20-5.40) L Hemoglobin 10.0 G/DL (12.0-16.0) L Hematocrit 33.2 % (37.0-47.0) L Mean Corpuscular Volume 87 FL (80-99) Mean Corpuscular Hemoglobin 26.0 PG (27.0-31.0) L Mean Corpuscular Hemoglobin Concent 30.1 G/DL (32.0-36.0) L Red Cell Distribution Width 14.3 % (11.6-14.8) Platelet Count 70 K/UL (150-450) L Mean Platelet Volume 8.9 FL (6.5-10.1) Neutrophils (%) (Auto) % (45.0-75.0) Lymphocytes (%) (Auto) % (20.0-45.0) Monocytes (%) (Auto) % (1.0-10.0) Eosinophils (%) (Auto) % (0.0-3.0) Basophils (%) (Auto) % (0.0-2.0) Differential Total Cells Counted 100 Neutrophils % (Manual) 41 % (45-75) L Lymphocytes % (Manual) 55 % (20-45) H Monocytes % (Manual) 4 % (1-10) Eosinophils % (Manual) 0 % (0-3) Basophils % (Manual) 0 % (0-2) Band Neutrophils 0 % (0-8) Platelet Estimate Decreased L Platelet Morphology Normal Hypochromasia 2+ Intake and Output 01/21/18 01/22/18 19:00 07:00 Intake Total 590 ml Balance 590 ml Intake Oral 590 ml # Voids 3 Objective General Appearance: WD/WN, no apparent distress, alert EENT: PERRL/EOMI, normal ENT inspection Neck: non-tender, normal alignment, supple Cardiovascular: tachycardia; normal peripheral pulses,regular rhythm, no gallop /murmur, no JVD Respiratory/Chest: respiratory distress, crackles/rales, rhonchi - bilaterally , expiratory wheezing Abdomen: normal bowel sounds, non tender, soft, no organomegaly, no mass Edema: trace edema 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 (3) HTN (hypertension) Assessment & Plan: Continue norvasc (4) Respiratory distress (5) COPD (chronic obstructive pulmonary disease) Assessment & Plan: Continue duoneb prn. See pulmonary note. (6) Hepatitis C (7) Tachycardia Assessment & Plan: Improved; see cardiology note Assessment/Plan Discharge planning: long-term facility when bed available. ESTEFANIA MCKEON January 22, 2018 15:57
--- NOTE | 2018-01-22 16:10 | General Progress Note ---
Assessment/Plan Assessment/Plan #. Anemia due to underlying chronic disease. Mild at this time. --> Continue to closely monitor. Has been stable. --> Blood transfusion not required unless symptomatic or hgb <7 --> Reviewed anemia workup. Iron 110, TIBC 230, Ferritin 90, B12 821, Folate 6.6 , TSH 1.4 #. Thrombocytopenia, secondary to hepatitis C --> Hep A and C antibody test (+) --> Monitor for improvement. Transfuse if platelets <20k #. Leukopenia, likely secondary to hepatitis C, currently improved. --> No leukocytosis is noted. The patient has been afebrile. --> Resolved at this time. #. Tachycardia. --> Persistent. Monitor for improvement. #. Acute on hypoxic respiratory failure, status post tracheostomy, improved. #. Hepatitis C. --> Elevated liver enzymes. Management as an outpatient. --> Appreciate Infectious Disease service evaluation. #. Hypertension. Systolic blood pressure goal less than 140. --> Improved. #. COPD. --> On duoneb prn. DC Planning. Awaiting placement. Subjective Date patient seen: January 21, 2018 Constitutional: Denies: no symptoms, chills, diaphoresis, fever, malaise, weakness, other HEENT: Denies: no symptoms, eye pain, blurred vision, tearing, double vision, ear pain, ear discharge, nose pain, nose congestion, throat pain, throat swelling, mouth pain, mouth swelling, other Cardiovascular: Denies: no symptoms, chest pain, edema, irregular heart rate, lightheadedness, palpitations, syncope, other Respiratory: Denies: no symptoms, cough, orthopnea, shortness of breath, SOB with excertion, SOB at rest, sputum, stridor, wheezing, other Gastrointestinal/Abdominal: Denies: no symptoms, abdomen distended, abdominal pain, black stools, tarry stools, blood in stool, constipated, diarrhea, difficulty swallowing, nausea, poor appetite, poor fluid intake, rectal bleeding , vomiting, other Genitourinary: Denies: no symptoms, burning, discharge, frequency, flank pain, hematuria, incontinence, pain, urgency, other Neurologic/Psychiatric: Denies: no symptoms, anxiety, depressed, emotional problems, headache, numbness, paresthesia, pre-existing deficit, seizure, tingling, tremors, weakness, other Hematologic/Lymphatic: Reports: anemia Allergies: Coded Allergies: Shrimp (Unverified Allergy, Unknown, 12/04/17) Subjective Remains tachycardic. No acute events. H/H stable. Objective Last 24 Hour Vital Signs Date Time Temp Pulse Resp B/P (MAP) Pulse Ox O2 Delivery O2 Flow Rate FiO2 01/22/18 15:52 97.7 105 22 124/75 99 97.7 01/22/18 12:44 97.9 111 22 114/60 93 97.9 01/22/18 08:05 98.2 103 24 112/52 93 98.2 01/22/18 07:45 Nasal Cannula 2.0 28 01/22/18 07:45 95 Nasal Cannula 2.0 28 01/22/18 07:45 101 23 Nasal Cannula 2.0 28 01/22/18 04:00 96 Nasal Cannula 2.0 01/22/18 04:00 97.0 107 21 120/71 96 97.0 01/22/18 00:00 97.3 94 20 115/65 95 97.3 01/22/18 00:00 95 Nasal Cannula 2.0 01/21/18 20:25 Nasal Cannula 2.0 28 01/21/18 20:25 96 Nasal Cannula 2.0 28 01/21/18 20:25 96 18 Nasal Cannula 2.0 28 01/21/18 20:00 97.9 107 20 123/71 96 Nasal Cannula 2.0 97.9 01/21/18 20:00 108 01/21/18 16:15 97.9 97 20 114/64 97 Nasal Cannula 2.0 97.9 Intake and Output 01/21/18 01/22/18 19:00 07:00 Intake Total 590 ml Balance 590 ml Intake Oral 590 ml # Voids 3 Laboratory Tests 01/22/18 07:30: White Blood Count 5.1, Red Blood Count 3.84L, Hemoglobin 10.0L, Hematocrit 33.2L , Mean Corpuscular Volume 87, Mean Corpuscular Hemoglobin 26.0L, Mean Corpuscular Hemoglobin Concent 30.1L, Red Cell Distribution Width 14.3, Platelet Count 70L, Mean Platelet Volume 8.9, Neutrophils (%) (Auto) , Lymphocytes (%) (Auto) , Monocytes (%) (Auto) , Eosinophils (%) (Auto) , Basophils (%) (Auto) , Differential Total Cells Counted 100, Neutrophils % ( Manual) 41L, Lymphocytes % (Manual) 55H, Monocytes % (Manual) 4, Eosinophils % ( Manual) 0, Basophils % (Manual) 0, Band Neutrophils 0, Platelet Estimate DecreasedL, Platelet Morphology Normal, Hypochromasia 2+ Height (Feet): 5 Height (Inches): 4.00 Weight (Pounds): 145 Neck: non-tender, normal alignment Cardiovascular: tachycardia Respiratory/Chest: chest wall non-tender, lungs clear Abdomen: normal bowel sounds, non tender Anuj Alfaro MD January 22, 2018 16:10
[2018-01-22] MEDS: Miralax 17gm pkt ORAL SCH (20:34)
[2018-01-22 20:37] VITALS: BP 133/61
--- NOTE | 2018-01-22 23:44 | General Progress Note ---
Assessment/Plan Assessment/Plan #. Anemia due to underlying chronic disease. Mild at this time. --> Continue to closely monitor. Has been stable. --> Blood transfusion not required unless symptomatic or hgb <7 --> Reviewed anemia workup. Iron 110, TIBC 230, Ferritin 90, B12 821, Folate 6.6 , TSH 1.4 #. Thrombocytopenia, secondary to hepatitis C --> Hep A and C antibody test (+) --> worsened today. --> Monitor for improvement. Transfuse if platelets <20k #. Leukopenia, likely secondary to hepatitis C, currently improved. --> No leukocytosis is noted. The patient has been afebrile. --> Resolved at this time. #. Tachycardia. --> Persistent. Monitor for improvement. #. Acute on hypoxic respiratory failure, status post tracheostomy, improved. #. Hepatitis C. --> Elevated liver enzymes. Management as an outpatient. --> Appreciate Infectious Disease service evaluation. #. Hypertension. Systolic blood pressure goal less than 140. --> Improved. #. COPD. --> On duoneb prn. DC Planning. Awaiting placement. Subjective Date patient seen: January 22, 2018 Constitutional: Denies: no symptoms, chills, diaphoresis, fever, malaise, weakness, other HEENT: Denies: no symptoms, eye pain, blurred vision, tearing, double vision, ear pain, ear discharge, nose pain, nose congestion, throat pain, throat swelling, mouth pain, mouth swelling, other Cardiovascular: Denies: no symptoms, chest pain, edema, irregular heart rate, lightheadedness, palpitations, syncope, other Respiratory: Denies: no symptoms, cough, orthopnea, shortness of breath, SOB with excertion, SOB at rest, sputum, stridor, wheezing, other Gastrointestinal/Abdominal: Denies: no symptoms, abdomen distended, abdominal pain, black stools, tarry stools, blood in stool, constipated, diarrhea, difficulty swallowing, nausea, poor appetite, poor fluid intake, rectal bleeding , vomiting, other Genitourinary: Denies: no symptoms, burning, discharge, frequency, flank pain, hematuria, incontinence, pain, urgency, other Neurologic/Psychiatric: Denies: no symptoms, anxiety, depressed, emotional problems, headache, numbness, paresthesia, pre-existing deficit, seizure, tingling, tremors, weakness, other Hematologic/Lymphatic: Reports: anemia Allergies: Coded Allergies: Shrimp (Unverified Allergy, Unknown, 12/04/17) Subjective Remains tachycardic. Plt levels downtrended. No fever. Objective Last 24 Hour Vital Signs Date Time Temp Pulse Resp B/P (MAP) Pulse Ox O2 Delivery O2 Flow Rate FiO2 01/22/18 20:37 98.2 118 21 133/61 94 98.2 01/22/18 15:52 97.7 105 22 124/75 99 97.7 01/22/18 12:44 97.9 111 22 114/60 93 97.9 01/22/18 08:05 98.2 103 24 112/52 93 98.2 01/22/18 07:45 Nasal Cannula 2.0 28 01/22/18 07:45 95 Nasal Cannula 2.0 28 01/22/18 07:45 101 23 Nasal Cannula 2.0 28 01/22/18 04:00 96 Nasal Cannula 2.0 01/22/18 04:00 97.0 107 21 120/71 96 97.0 01/22/18 00:00 97.3 94 20 115/65 95 97.3 01/22/18 00:00 95 Nasal Cannula 2.0 Intake and Output 01/21/18 01/22/18 19:00 07:00 Intake Total 590 ml Balance 590 ml Intake Oral 590 ml # Voids 3 Laboratory Tests 01/22/18 07:30: White Blood Count 5.1, Red Blood Count 3.84L, Hemoglobin 10.0L, Hematocrit 33.2L , Mean Corpuscular Volume 87, Mean Corpuscular Hemoglobin 26.0L, Mean Corpuscular Hemoglobin Concent 30.1L, Red Cell Distribution Width 14.3, Platelet Count 70L, Mean Platelet Volume 8.9, Neutrophils (%) (Auto) , Lymphocytes (%) (Auto) , Monocytes (%) (Auto) , Eosinophils (%) (Auto) , Basophils (%) (Auto) , Differential Total Cells Counted 100, Neutrophils % ( Manual) 41L, Lymphocytes % (Manual) 55H, Monocytes % (Manual) 4, Eosinophils % ( Manual) 0, Basophils % (Manual) 0, Band Neutrophils 0, Platelet Estimate DecreasedL, Platelet Morphology Normal, Hypochromasia 2+ Height (Feet): 5 Height (Inches): 4.00 Weight (Pounds): 145 General Appearance: WD/WN, no apparent distress EENT: PERRL/EOMI, normal ENT inspection Neck: non-tender, normal alignment Cardiovascular: tachycardia Respiratory/Chest: respiratory distress, crackles/rales, rhonchi - bilaterally Abdomen: normal bowel sounds, non tender Edema: trace edema Anuj Alfaro MD January 22, 2018 23:44
[2018-01-23 00:31] VITALS: BP 131/57
[2018-01-23] MEDS: NovoLOG Insulin Flexpen SUBQ SCH ×7 (06:11→21:17)
--- NOTE | 2018-01-23 07:07 | General Progress Note ---
Assessment/Plan Problem List: (1) Diabetes mellitus out of control ICD Codes: E11.65 - Type 2 diabetes mellitus with hyperglycemia SNOMED: 82138228, 926327861 (2) COPD (chronic obstructive pulmonary disease) ICD Codes: J44.9 - Chronic obstructive pulmonary disease, unspecified SNOMED: 42270099 (3) Acute and chronic respiratory failure ICD Codes: J96.20 - Acute and chronic respiratory failure, unspecified whether with hypoxia or hypercapnia SNOMED: 25854253 Assessment/Plan increase Levemir to 18 units bid increase Novolog to 10 units ac tid continue NISS Subjective Allergies: Coded Allergies: Shrimp (Unverified Allergy, Unknown, 12/04/17) All Systems: reviewed and negative except above Subjective events noted Objective Last 24 Hour Vital Signs Date Time Temp Pulse Resp B/P (MAP) Pulse Ox O2 Delivery O2 Flow Rate FiO2 01/23/18 00:31 94 Nasal Cannula 2.0 01/23/18 00:31 98.1 110 19 131/57 94 98.1 01/22/18 20:37 94 Nasal Cannula 2.0 01/22/18 20:37 98.2 118 21 133/61 94 98.2 01/22/18 15:52 97.7 105 22 124/75 99 97.7 01/22/18 12:44 97.9 111 22 114/60 93 97.9 01/22/18 08:05 98.2 103 24 112/52 93 98.2 01/22/18 07:45 Nasal Cannula 2.0 28 01/22/18 07:45 95 Nasal Cannula 2.0 28 01/22/18 07:45 101 23 Nasal Cannula 2.0 28 Intake and Output 01/22/18 01/23/18 19:00 07:00 Intake Total 600 ml 360 ml Balance 600 ml 360 ml Intake Oral 600 ml 360 ml # Voids 5 3 # Bowel Movements 1 1 Laboratory Tests 01/22/18 07:30: White Blood Count 5.1, Red Blood Count 3.84L, Hemoglobin 10.0L, Hematocrit 33.2L , Mean Corpuscular Volume 87, Mean Corpuscular Hemoglobin 26.0L, Mean Corpuscular Hemoglobin Concent 30.1L, Red Cell Distribution Width 14.3, Platelet Count 70L, Mean Platelet Volume 8.9, Neutrophils (%) (Auto) , Lymphocytes (%) (Auto) , Monocytes (%) (Auto) , Eosinophils (%) (Auto) , Basophils (%) (Auto) , Differential Total Cells Counted 100, Neutrophils % ( Manual) 41L, Lymphocytes % (Manual) 55H, Monocytes % (Manual) 4, Eosinophils % ( Manual) 0, Basophils % (Manual) 0, Band Neutrophils 0, Platelet Estimate DecreasedL, Platelet Morphology Normal, Hypochromasia 2+ Height (Feet): 5 Height (Inches): 4.00 Weight (Pounds): 145 General Appearance: no apparent distress Neck: normal alignment Cardiovascular: normal rate Respiratory/Chest: decreased breath sounds Abdomen: normal bowel sounds Pelvis: normal external exam Objective Current Medications Medications (Trade) Dose Ordered Sig/Hansel Route PRN Reason Start Time Stop Time Status Last Admin Dose Admin Albuterol/ Ipratropium (Albuterol/ Ipratropium) 3 ml Q6H PRN HHN Shortness of Breath 01/21/18 21:00 01/27/18 20:59 Clonidine HCl (Catapres Tab) 0.1 mg Q4H PRN ORAL sbp more than 160mmHg 01/21/18 21:00 02/20/18 20:59 Dextrose (Dextrose 50%) 25 ml STAT PRN IV Blood Sugar btwn 60-69 mg/dL 01/21/18 21:00 02/20/18 20:59 Dextrose (Dextrose 50%) 50 ml STAT PRN IV BS less than 60mg/dl 01/21/18 21:00 02/20/18 20:59 Docusate Sodium (Colace) 100 mg THREE TIMES A DAY ORAL 01/22/18 09:00 02/19/18 17:59 01/22/18 17:26 Insulin Aspart (NovoLOG) BEFORE MEALS AND HS SUBQ 01/21/18 21:00 02/19/18 16:29 01/23/18 06:11 Insulin Aspart (NovoLOG) 8 units NOVOTIAC SUBQ 01/22/18 11:50 01/23/18 11:49 01/23/18 06:12 Insulin Detemir (Levemir) 15 units EVERY 12 HOURS SUBQ 01/22/18 09:00 02/19/18 08:59 01/22/18 20:36 Lorazepam (Ativan) 0.5 mg Q4H PRN ORAL For Anxiety 01/21/18 21:00 01/28/18 20:59 Polyethylene Glycol (Miralax) 17 gm BEDTIME ORAL 01/21/18 21:00 02/19/18 20:59 01/21/18 21:32 Promethazine HCl/ Codeine (Phenergan with Codeine) 5 ml Q6H PRN ORAL cough 01/21/18 21:00 01/23/18 20:59 Sennosides (Senokot) 1 tab DAILY ORAL 01/22/18 09:00 02/19/18 08:59 01/22/18 08:26 Vitamin A/Vitamin D (A & D Oint) 1 applic EVERY 12 HOURS TOPIC 01/21/18 21:00 02/19/18 20:59 01/22/18 20:37 Item Value Date Time Bedside Blood Glucose 233 mg/dl H 01/23/18 0628 Bedside Blood Glucose 340 mg/dl H 01/22/18 2059 Bedside Blood Glucose 209 mg/dl H 01/22/18 1651 Bedside Blood Glucose 322 mg/dl H 01/22/18 1200 Bedside Blood Glucose 245 mg/dl H 01/22/18 0828 Bedside Blood Glucose 245 mg/dl H 01/22/18 0606 FEMI MCKEON January 23, 2018 07:07
[2018-01-23 08:31] VITALS: BP 108/67
[2018-01-23] MEDS: Docusate 100mg cap ORAL SCH ×3 (09:11→16:44)
[2018-01-23] MEDS: Sennosides 8.6mg ORAL SCH (09:11)
[2018-01-23] MEDS: Vitamin A&D Oint 2oz Tube TOPIC SCH ×2 (09:11→21:15)
[2018-01-23] MEDS: Levemir Flexpen SUBQ SCH ×2 (09:15→21:17)
--- NOTE | 2018-01-23 11:16 | Internal Med Progress Note ---
Subjective Date of Service: January 23, 2018 Physician Name Mckeon,Estefania Attending Physician Tone Fried MD Current Medications Medications (Trade) Dose Ordered Sig/Hansel Route PRN Reason Start Time Stop Time Status Last Admin Dose Admin Albuterol/ Ipratropium (Albuterol/ Ipratropium) 3 ml Q6H PRN HHN Shortness of Breath 01/21/18 21:00 01/27/18 20:59 Clonidine HCl (Catapres Tab) 0.1 mg Q4H PRN ORAL sbp more than 160mmHg 01/21/18 21:00 02/20/18 20:59 Dextrose (Dextrose 50%) 25 ml STAT PRN IV Blood Sugar btwn 60-69 mg/dL 01/21/18 21:00 02/20/18 20:59 Dextrose (Dextrose 50%) 50 ml STAT PRN IV BS less than 60mg/dl 01/21/18 21:00 02/20/18 20:59 Docusate Sodium (Colace) 100 mg THREE TIMES A DAY ORAL 01/22/18 09:00 02/19/18 17:59 01/23/18 09:11 Insulin Aspart (NovoLOG) BEFORE MEALS AND HS SUBQ 01/21/18 21:00 02/19/18 16:29 01/23/18 06:11 Insulin Aspart (NovoLOG) 10 units NOVOTIAC SUBQ 01/23/18 11:50 02/22/18 11:49 Insulin Detemir (Levemir) 18 units EVERY 12 HOURS SUBQ 01/23/18 09:00 02/19/18 08:59 01/23/18 09:15 Lorazepam (Ativan) 0.5 mg Q4H PRN ORAL For Anxiety 01/21/18 21:00 01/28/18 20:59 Polyethylene Glycol (Miralax) 17 gm BEDTIME ORAL 01/21/18 21:00 02/19/18 20:59 01/21/18 21:32 Promethazine HCl/ Codeine (Phenergan with Codeine) 5 ml Q6H PRN ORAL cough 01/21/18 21:00 01/23/18 20:59 Sennosides (Senokot) 1 tab DAILY ORAL 01/22/18 09:00 02/19/18 08:59 01/23/18 09:11 Vitamin A/Vitamin D (A & D Oint) 1 applic EVERY 12 HOURS TOPIC 01/21/18 21:00 02/19/18 20:59 01/23/18 09:11 Allergies: Coded Allergies: Shrimp (Unverified Allergy, Unknown, 12/04/17) ROS Limited/Unobtainable: No Constitutional: Reports: no symptoms HEENT: Reports: no symptoms Cardiovascular: Reports: no symptoms Respiratory: Reports: no symptoms Gastrointestinal/Abdominal: Reports: no symptoms Genitourinary: Reports: no symptoms Neurologic/Psychiatric: Reports: no symptoms Subjective 67 YO F admitted with respiratory failure. Now acute COPD exacerbation. Cover for Int Milly Fried. Objective Last Vital Signs Date Time Temp Pulse Resp B/P (MAP) Pulse Ox O2 Delivery O2 Flow Rate FiO2 01/23/18 08:31 97.7 93 23 108/67 99 Nasal Cannula 97.7 01/23/18 07:55 2.0 28 Intake and Output 01/22/18 01/23/18 19:00 07:00 Intake Total 600 ml 360 ml Balance 600 ml 360 ml Intake Oral 600 ml 360 ml # Voids 5 3 # Bowel Movements 1 1 Objective General Appearance: WD/WN, no apparent distress, alert EENT: PERRL/EOMI, normal ENT inspection Neck: non-tender, normal alignment, supple Cardiovascular: tachycardia; normal peripheral pulses,regular rhythm, no gallop /murmur, no JVD Respiratory/Chest: respiratory distress, crackles/rales, rhonchi - bilaterally , expiratory wheezing Abdomen: normal bowel sounds, non tender, soft, no organomegaly, no mass Edema: trace edema 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 (3) HTN (hypertension) Assessment & Plan: Continue norvasc (4) Respiratory distress (5) COPD (chronic obstructive pulmonary disease) Assessment & Plan: Continue duoneb prn. See pulmonary note. (6) Hepatitis C (7) Tachycardia Assessment & Plan: Improved; see cardiology note Status: stable Assessment/Plan Discharge planning: correction facility when bed available. ESTEFANIA MCKEON January 23, 2018 11:16
[2018-01-23 12:37] VITALS: BP 117/68
--- NOTE | 2018-01-23 13:16 | Pulmonology Progress Note ---
Assessment/Plan Problems: (1) Acute and chronic respiratory failure (2) COPD (chronic obstructive pulmonary disease) (3) Hepatitis C Assessment/Plan doing better no new events no new complains respiratory treatment still in search of a new place Subjective ROS Limited/Unobtainable: No Constitutional: Reports: no symptoms HEENT: Repors: no symptoms Respiratory: Reports: no symptoms Allergies: Coded Allergies: Shrimp (Unverified Allergy, Unknown, 12/04/17) Objective Last 24 Hour Vital Signs Date Time Temp Pulse Resp B/P (MAP) Pulse Ox O2 Delivery O2 Flow Rate FiO2 01/23/18 12:37 97.5 85 17 117/68 99 Nasal Cannula 97.5 01/23/18 08:31 97.7 93 23 108/67 99 Nasal Cannula 97.7 01/23/18 07:55 99 Nasal Cannula 2.0 28 01/23/18 07:55 Nasal Cannula 2.0 28 01/23/18 07:55 95 22 Nasal Cannula 2.0 28 01/23/18 00:31 94 Nasal Cannula 2.0 01/23/18 00:31 98.1 110 19 131/57 94 98.1 01/22/18 20:37 94 Nasal Cannula 2.0 01/22/18 20:37 98.2 118 21 133/61 94 98.2 01/22/18 15:52 97.7 105 22 124/75 99 97.7 Intake and Output 01/22/18 01/23/18 19:00 07:00 Intake Total 600 ml 360 ml Balance 600 ml 360 ml Intake Oral 600 ml 360 ml # Voids 5 3 # Bowel Movements 1 1 Objective General Appearance: cachetic HEENT: normocephalic Respiratory/Chest: chest wall non-tender, lungs clear Breasts: no masses Cardiovascular: normal peripheral pulses, normal rate Abdomen: normal bowel sounds, soft, non tender Extremities: no cyanosis, no clubbing 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, no motor/sensory deficits Lymphatic: no neck adenopathy Current Medications Medications (Trade) Dose Ordered Sig/Hansel Route PRN Reason Start Time Stop Time Status Last Admin Dose Admin Albuterol/ Ipratropium (Albuterol/ Ipratropium) 3 ml Q6H PRN HHN Shortness of Breath 01/21/18 21:00 01/27/18 20:59 Clonidine HCl (Catapres Tab) 0.1 mg Q4H PRN ORAL sbp more than 160mmHg 01/21/18 21:00 02/20/18 20:59 Dextrose (Dextrose 50%) 25 ml STAT PRN IV Blood Sugar btwn 60-69 mg/dL 01/21/18 21:00 02/20/18 20:59 Dextrose (Dextrose 50%) 50 ml STAT PRN IV BS less than 60mg/dl 01/21/18 21:00 02/20/18 20:59 Docusate Sodium (Colace) 100 mg THREE TIMES A DAY ORAL 01/22/18 09:00 02/19/18 17:59 01/23/18 09:11 Insulin Aspart (NovoLOG) BEFORE MEALS AND HS SUBQ 01/21/18 21:00 02/19/18 16:29 01/23/18 11:34 Insulin Aspart (NovoLOG) 10 units NOVOTIAC SUBQ 01/23/18 11:50 02/22/18 11:49 01/23/18 11:33 Insulin Detemir (Levemir) 18 units EVERY 12 HOURS SUBQ 01/23/18 09:00 02/19/18 08:59 01/23/18 09:15 Lorazepam (Ativan) 0.5 mg Q4H PRN ORAL For Anxiety 01/21/18 21:00 01/28/18 20:59 Polyethylene Glycol (Miralax) 17 gm BEDTIME ORAL 01/21/18 21:00 02/19/18 20:59 01/21/18 21:32 Promethazine HCl/ Codeine (Phenergan with Codeine) 5 ml Q6H PRN ORAL cough 01/21/18 21:00 01/23/18 20:59 Sennosides (Senokot) 1 tab DAILY ORAL 01/22/18 09:00 02/19/18 08:59 01/23/18 09:11 Vitamin A/Vitamin D (A & D Oint) 1 applic EVERY 12 HOURS TOPIC 01/21/18 21:00 02/19/18 20:59 01/23/18 09:11 Leni Watts MD January 23, 2018 13:16
--- NOTE | 2018-01-23 16:01 | Infectious Diseases Prog Note ---
Assessment/Plan Assessment/Plan Assessment: Acute hypoxic resp failure improved COPD exacerbation, s/p -CXR 01/21: Mild pulmonary vascular congestion may be present. Correlate clinically. Left pleural effusion suspected -CXR: No acute disease Afebrile, no leukocytosis Recent acute hypoxic failure and PNA 11/2015 -sp cx 12/04: E.coli (davila S), P. mirabilis (davila S) Influenza sc : Neg transaminitis improving Chronic Hep C, untreated VL 3.8 m,illions Hep panel : A Imm ; B not immune HIV Neg hx of trach s/p removal COPD Dm2 HTN [facility] resident Plan: - Monitor pt off of AB Rx -12/24 SP Levaquin # 5 /5 -12/10 SP Cefepime #7 -12/06 SP Vanco #3 -Monitor CBC/BMP, temperatures -aspiration precautions Hem fup, re TCP needs treatment of Hep C as outpatient needs Hep B vaccine as outpatient Subjective Allergies: Coded Allergies: Shrimp (Unverified Allergy, Unknown, 12/04/17) Subjective afebrile off abx no leukcoytosis Objective Vital Signs Last 24 Hour Vital Signs Date Time Temp Pulse Resp B/P (MAP) Pulse Ox O2 Delivery O2 Flow Rate FiO2 01/23/18 12:37 97.5 85 17 117/68 99 Nasal Cannula 97.5 01/23/18 08:31 97.7 93 23 108/67 99 Nasal Cannula 97.7 01/23/18 07:55 99 Nasal Cannula 2.0 28 01/23/18 07:55 Nasal Cannula 2.0 28 01/23/18 07:55 95 22 Nasal Cannula 2.0 28 01/23/18 00:31 94 Nasal Cannula 2.0 01/23/18 00:31 98.1 110 19 131/57 94 98.1 01/22/18 20:37 94 Nasal Cannula 2.0 01/22/18 20:37 98.2 118 21 133/61 94 98.2 Height (Feet): 5 Height (Inches): 4.00 Weight (Pounds): 145 Objective General Appearance: cachetic HEENT: normocephalic Respiratory/Chest: chest wall non-tender, lungs clear Breasts: no masses Cardiovascular: normal peripheral pulses, normal rate Abdomen: normal bowel sounds, soft, non tender Extremities: no cyanosis, no clubbing Neurologic/Psychiatric: emt i/99 II-XII grossly normal, no motor/sensory deficits Lymphatic: no neck adenopathy Current Medications Medications (Trade) Dose Ordered Sig/Hansel Route PRN Reason Start Time Stop Time Status Last Admin Dose Admin Albuterol/ Ipratropium (Albuterol/ Ipratropium) 3 ml Q6H PRN HHN Shortness of Breath 01/21/18 21:00 01/27/18 20:59 Clonidine HCl (Catapres Tab) 0.1 mg Q4H PRN ORAL sbp more than 160mmHg 01/21/18 21:00 02/20/18 20:59 Dextrose (Dextrose 50%) 25 ml STAT PRN IV Blood Sugar btwn 60-69 mg/dL 01/21/18 21:00 02/20/18 20:59 Dextrose (Dextrose 50%) 50 ml STAT PRN IV BS less than 60mg/dl 01/21/18 21:00 02/20/18 20:59 Docusate Sodium (Colace) 100 mg THREE TIMES A DAY ORAL 01/22/18 09:00 02/19/18 17:59 01/23/18 09:11 Insulin Aspart (NovoLOG) BEFORE MEALS AND HS SUBQ 01/21/18 21:00 02/19/18 16:29 01/23/18 11:34 Insulin Aspart (NovoLOG) 10 units NOVOTIAC SUBQ 01/23/18 11:50 02/22/18 11:49 01/23/18 11:33 Insulin Detemir (Levemir) 18 units EVERY 12 HOURS SUBQ 01/23/18 09:00 02/19/18 08:59 01/23/18 09:15 Lorazepam (Ativan) 0.5 mg Q4H PRN ORAL For Anxiety 01/21/18 21:00 01/28/18 20:59 Polyethylene Glycol (Miralax) 17 gm BEDTIME ORAL 01/21/18 21:00 02/19/18 20:59 01/21/18 21:32 Promethazine HCl/ Codeine (Phenergan with Codeine) 5 ml Q6H PRN ORAL cough 01/21/18 21:00 01/23/18 20:59 Sennosides (Senokot) 1 tab DAILY ORAL 01/22/18 09:00 02/19/18 08:59 01/23/18 09:11 Vitamin A/Vitamin D (A & D Oint) 1 applic EVERY 12 HOURS [facility] 01/21/18 21:00 02/19/18 20:59 01/23/18 09:11 Caterina Elizondo M.D. January 23, 2018 16:01
--- NOTE | 2018-01-23 16:03 | General Progress Note ---
Assessment/Plan Problem List: (1) Hyperkalemia ICD Codes: E87.5 - Hyperkalemia SNOMED: 71318958 (2) Acidosis ICD Codes: E87.2 - Acidosis SNOMED: 82977679 (3) CO2 retention ICD Codes: E87.2 - Acidosis SNOMED: 54830348 (4) Respiratory distress ICD Codes: R06.03 - Acute respiratory distress SNOMED: 970947954 (5) COPD (chronic obstructive pulmonary disease) ICD Codes: J44.9 - Chronic obstructive pulmonary disease, unspecified SNOMED: 76233742 (6) Hepatitis C ICD Codes: B19.20 - Unspecified viral hepatitis C without hepatic coma SNOMED: 14262803 (7) Acute and chronic respiratory failure ICD Codes: J96.20 - Acute and chronic respiratory failure, unspecified whether with hypoxia or hypercapnia SNOMED: 45707631 (8) Diabetes mellitus out of control ICD Codes: E11.65 - Type 2 diabetes mellitus with hyperglycemia SNOMED: 48148489, 989290077 (9) Tachycardia ICD Codes: R00.0 - Tachycardia, unspecified SNOMED: 6932958 (10) Hypertension ICD Codes: I10 - Essential (primary) hypertension SNOMED: 76111835 Assessment/Plan encephalopathy [place] [facility] [place] Subjective Date patient seen: January 23, 2018 Neurologic/Psychiatric: Reports: anxiety, depressed, emotional problems Allergies: Coded Allergies: Shrimp (Unverified Allergy, Unknown, 12/04/17) Subjective e pt was somewhat confused. Objective Last 24 Hour Vital Signs Date Time Temp Pulse Resp B/P (MAP) Pulse Ox O2 Delivery O2 Flow Rate FiO2 01/23/18 12:37 97.5 85 17 117/68 99 Nasal Cannula 97.5 01/23/18 08:31 97.7 93 23 108/67 99 Nasal Cannula 97.7 01/23/18 07:55 99 Nasal Cannula 2.0 28 01/23/18 07:55 Nasal Cannula 2.0 28 01/23/18 07:55 95 22 Nasal Cannula 2.0 28 01/23/18 00:31 94 Nasal Cannula 2.0 01/23/18 00:31 98.1 110 19 131/57 94 98.1 01/22/18 20:37 94 Nasal Cannula 2.0 01/22/18 20:37 98.2 118 21 133/61 94 98.2 Intake and Output 01/22/18 01/23/18 19:00 07:00 Intake Total 600 ml 360 ml Balance 600 ml 360 ml Intake Oral 600 ml 360 ml # Voids 5 3 # Bowel Movements 1 1 Height (Feet): 5 Height (Inches): 4.00 Weight (Pounds): 145 General Appearance: no apparent distress, alert Neurologic: depressed affect Grisel Jay M.D. January 23, 2018 16:03
[2018-01-23 16:11] VITALS: BP 116/62
--- NOTE | 2018-01-23 19:33 | Cardiology Progress Note ---
Assessment/Plan Assessment/Plan 1. Sinus tachycardia with premature atrial complexes. 2. Chronic obstructive pulmonary disease. 3. Diabetes mellitus. 4. Hypertension history heart rate and bp are fine Subjective Subjective sl;eepign comfortabley Objective Last 24 Hour Vital Signs Date Time Temp Pulse Resp B/P (MAP) Pulse Ox O2 Delivery O2 Flow Rate FiO2 01/23/18 16:11 98.2 90 19 116/62 99 Nasal Cannula 98.2 01/23/18 12:37 97.5 85 17 117/68 99 Nasal Cannula 97.5 01/23/18 08:31 97.7 93 23 108/67 99 Nasal Cannula 97.7 01/23/18 07:55 99 Nasal Cannula 2.0 28 01/23/18 07:55 Nasal Cannula 2.0 28 01/23/18 07:55 95 22 Nasal Cannula 2.0 28 01/23/18 00:31 94 Nasal Cannula 2.0 01/23/18 00:31 98.1 110 19 131/57 94 98.1 01/22/18 20:37 94 Nasal Cannula 2.0 01/22/18 20:37 98.2 118 21 133/61 94 98.2 General Appearance: no apparent distress Intake and Output 01/22/18 01/23/18 19:00 07:00 Intake Total 600 ml 360 ml Balance 600 ml 360 ml Intake Oral 600 ml 360 ml # Voids 5 3 # Bowel Movements 1 1 STEVO WAGNER January 23, 2018 19:33
[2018-01-23 20:00] VITALS: BP 125/69
[2018-01-23] MEDS: Miralax 17gm pkt ORAL SCH (21:15)
--- NOTE | 2018-01-23 23:30 | General Progress Note ---
Assessment/Plan Assessment/Plan #. Thrombocytopenia, secondary to hepatitis C --> Hep A and C antibody test (+) --> platelet count downtrended today. --> Monitor for improvement. Transfuse if platelets <20k #. Anemia due to underlying chronic disease. Mild at this time. --> Continue to closely monitor. Has been stable. --> Blood transfusion not required unless symptomatic or hgb <7 --> Reviewed anemia workup. Iron 110, TIBC 230, Ferritin 90, B12 821, Folate 6.6 , TSH 1.4 #. Leukopenia, likely secondary to hepatitis C, currently improved. --> No leukocytosis is noted. The patient has been afebrile. --> Resolved at this time. #. Tachycardia. --> Persistent. Monitor for improvement. #. Acute on hypoxic respiratory failure, status post tracheostomy, improved. #. Hepatitis C. --> Elevated liver enzymes. Management as an outpatient. --> Appreciate Infectious Disease service evaluation. #. Hypertension. Systolic blood pressure goal less than 140. --> Improved. #. COPD. --> On duoneb prn. DC Planning. Awaiting placement. Subjective Date patient seen: January 23, 2018 Constitutional: Denies: no symptoms, chills, diaphoresis, fever, malaise, weakness, other HEENT: Denies: no symptoms, eye pain, blurred vision, tearing, double vision, ear pain, ear discharge, nose pain, nose congestion, throat pain, throat swelling, mouth pain, mouth swelling, other Cardiovascular: Denies: no symptoms, chest pain, edema, irregular heart rate, lightheadedness, palpitations, syncope, other Respiratory: Denies: no symptoms, cough, orthopnea, shortness of breath, SOB with excertion, SOB at rest, sputum, stridor, wheezing, other Gastrointestinal/Abdominal: Denies: no symptoms, abdomen distended, abdominal pain, black stools, tarry stools, blood in stool, constipated, diarrhea, difficulty swallowing, nausea, poor appetite, poor fluid intake, rectal bleeding , vomiting, other Genitourinary: Denies: no symptoms, burning, discharge, frequency, flank pain, hematuria, incontinence, pain, urgency, other Neurologic/Psychiatric: Denies: no symptoms, anxiety, depressed, emotional problems, headache, numbness, paresthesia, pre-existing deficit, seizure, tingling, tremors, weakness, other Hematologic/Lymphatic: Reports: anemia Allergies: Coded Allergies: Shrimp (Unverified Allergy, Unknown, 12/04/17) Subjective Hep C, platelets remain low. H/H stable. Objective Last 24 Hour Vital Signs Date Time Temp Pulse Resp B/P (MAP) Pulse Ox O2 Delivery O2 Flow Rate FiO2 01/23/18 20:00 98.7 100 18 125/69 95 98.7 01/23/18 19:00 98 Nasal Cannula 2.0 28 01/23/18 19:00 Nasal Cannula 2.0 28 01/23/18 19:00 98 20 Nasal Cannula 2.0 28 01/23/18 16:11 98.2 90 19 116/62 99 Nasal Cannula 98.2 01/23/18 12:37 97.5 85 17 117/68 99 Nasal Cannula 97.5 01/23/18 08:31 97.7 93 23 108/67 99 Nasal Cannula 97.7 01/23/18 07:55 99 Nasal Cannula 2.0 28 01/23/18 07:55 Nasal Cannula 2.0 28 01/23/18 07:55 95 22 Nasal Cannula 2.0 28 01/23/18 00:31 94 Nasal Cannula 2.0 01/23/18 00:31 98.1 110 19 131/57 94 98.1 Intake and Output 01/22/18 01/23/18 19:00 07:00 Intake Total 600 ml 360 ml Balance 600 ml 360 ml Intake Oral 600 ml 360 ml # Voids 5 3 # Bowel Movements 1 1 Height (Feet): 5 Height (Inches): 4.00 Weight (Pounds): 145 General Appearance: no apparent distress EENT: normal ENT inspection Neck: normal alignment Cardiovascular: tachycardia Respiratory/Chest: lungs clear, normal breath sounds Abdomen: non tender, soft Anuj Alfaro MD January 23, 2018 23:30
[2018-01-23 23:51] VITALS: BP 111/62
[2018-01-24 04:00] VITALS: BP 120/71
[2018-01-24] MEDS: NovoLOG Insulin Flexpen SUBQ SCH ×7 (06:12→22:12)
[2018-01-24 08:00] VITALS: BP 116/70
[2018-01-24 08:01] LABS: BASOPHILS % (AUTO) 1.1 % (0.0-2.0); EOSINOPHILS % (AUTO) 0.6 % (0.0-3.0); HEMATOCRIT 31.7 % (37.0-47.0); HEMOGLOBIN 9.1 G/DL (12.0-16.0); LYMPHOCYTES % (AUTO) 52.1 % (20.0-45.0); MEAN CORPUSCULAR VOLUME 87 FL (80-99); MONOCYTES % (AUTO) 7.7 % (1.0-10.0); NEUTROPHILS % (AUTO) 38.4 % (45.0-75.0); PLATELET COUNT 139 K/UL (150-450); RED BLOOD COUNT 3.64 M/UL (4.20-5.40); RED CELL DISTRIBUTION WIDTH 14.8 % (11.6-14.8); WHITE BLOOD COUNT 6.8 K/UL (4.8-10.8)
[2018-01-24 08:05] LABS: BLOOD UREA NITROGEN 11 mg/dL (7-18); CALCIUM 9.6 MG/DL (8.5-10.1); CHLORIDE 105 MMOL/L (98-107); CREATININE 0.8 MG/DL (0.55-1.30); POTASSIUM 4.4 MMOL/L (3.5-5.1); SODIUM 147 MMOL/L (136-145)
[2018-01-24 08:12] LABS: CARBON DIOXIDE > 45 MMOL/L (21-32)
[2018-01-24] MEDS: Sennosides 8.6mg ORAL SCH (09:00)
[2018-01-24] MEDS: Docusate 100mg cap ORAL SCH ×3 (09:18→18:00)
[2018-01-24] MEDS: Levemir Flexpen SUBQ SCH ×2 (09:19→22:10)
[2018-01-24] MEDS: Vitamin A&D Oint 2oz Tube TOPIC SCH ×2 (09:20→22:07)
--- NOTE | 2018-01-24 11:55 | General Progress Note ---
Assessment/Plan Problem List: (1) Hyperkalemia ICD Codes: E87.5 - Hyperkalemia SNOMED: 42566028 (2) Acidosis ICD Codes: E87.2 - Acidosis SNOMED: 14640374 (3) CO2 retention ICD Codes: E87.2 - Acidosis SNOMED: 09763202 (4) Respiratory distress ICD Codes: R06.03 - Acute respiratory distress SNOMED: 897441571 (5) COPD (chronic obstructive pulmonary disease) ICD Codes: J44.9 - Chronic obstructive pulmonary disease, unspecified SNOMED: 97671223 (6) Hepatitis C ICD Codes: B19.20 - Unspecified viral hepatitis C without hepatic coma SNOMED: 85170209 (7) Acute and chronic respiratory failure ICD Codes: J96.20 - Acute and chronic respiratory failure, unspecified whether with hypoxia or hypercapnia SNOMED: 19782246 (8) Diabetes mellitus out of control ICD Codes: E11.65 - Type 2 diabetes mellitus with hyperglycemia SNOMED: 71479599, 174126121 (9) Tachycardia ICD Codes: R00.0 - Tachycardia, unspecified SNOMED: 2484568 (10) Hypertension ICD Codes: I10 - Essential (primary) hypertension SNOMED: 72025253 Status: stable, progressing Assessment/Plan 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 Objective Last 24 Hour Vital Signs Date Time Temp Pulse Resp B/P (MAP) Pulse Ox O2 Delivery O2 Flow Rate FiO2 01/24/18 08:17 Nasal Cannula 2.0 28 01/24/18 08:17 98 Nasal Cannula 2.0 28 01/24/18 08:17 97 18 Nasal Cannula 2.0 28 01/24/18 08:00 Nasal Cannula 2.0 01/24/18 08:00 98.1 70 19 116/70 98 98.1 01/24/18 04:00 97.7 83 18 120/71 94 97.7 01/23/18 23:51 98.2 94 18 111/62 100 98.2 01/23/18 21:00 Nasal Cannula 2.0 01/23/18 20:00 98.7 100 18 125/69 95 98.7 01/23/18 19:00 98 Nasal Cannula 2.0 28 01/23/18 19:00 Nasal Cannula 2.0 28 01/23/18 19:00 98 20 Nasal Cannula 2.0 28 01/23/18 16:11 98.2 90 19 116/62 99 Nasal Cannula 98.2 01/23/18 12:37 97.5 85 17 117/68 99 Nasal Cannula 97.5 Intake and Output 01/23/18 01/24/18 19:00 07:00 Intake Total 550 ml 260 ml Balance 550 ml 260 ml Intake Oral 260 ml Other 550 ml # Voids 4 Laboratory Tests 01/24/18 05:15: White Blood Count 6.8, Red Blood Count 3.64L, Hemoglobin 9.1L, Hematocrit 31.7L , Mean Corpuscular Volume 87, Mean Corpuscular Hemoglobin 25.1L, Mean Corpuscular Hemoglobin Concent 28.8L, Red Cell Distribution Width 14.8, Platelet Count 139L, Mean Platelet Volume 6.4L, Neutrophils (%) (Auto) 38.4L, Lymphocytes (%) (Auto) 52.1H, Monocytes (%) (Auto) 7.7, Eosinophils (%) (Auto) 0.6, Basophils (%) (Auto) 1.1, Sodium Level 147H, Potassium Level 4.4, Chloride Level 105, Carbon Dioxide Level > 45*H, Blood Urea Nitrogen 11, Creatinine 0.8, Estimat Glomerular Filtration Rate > 60, Glucose Level 73L, Calcium Level 9.6 Height (Feet): 5 Height (Inches): 4.00 Weight (Pounds): 148 General Appearance: WD/WN, no apparent distress, alert Neurologic: oriented x 3, depressed affect Grisel Jay M.D. January 24, 2018 11:55
[2018-01-24 12:00] VITALS: BP 132/79
--- NOTE | 2018-01-24 14:40 | Pulmonology Progress Note ---
Assessment/Plan Problems: (1) Acute and chronic respiratory failure (2) COPD (chronic obstructive pulmonary disease) (3) Hepatitis C Assessment/Plan doing better no new events no new complains respiratory treatment still in search of a new place Subjective ROS Limited/Unobtainable: No Constitutional: Reports: no symptoms HEENT: Repors: no symptoms Respiratory: Reports: no symptoms Allergies: Coded Allergies: Shrimp (Unverified Allergy, Unknown, 12/04/17) Objective Last 24 Hour Vital Signs Date Time Temp Pulse Resp B/P (MAP) Pulse Ox O2 Delivery O2 Flow Rate FiO2 01/24/18 12:00 98.2 90 19 132/79 99 98.2 01/24/18 08:17 Nasal Cannula 2.0 28 01/24/18 08:17 98 Nasal Cannula 2.0 28 01/24/18 08:17 97 18 Nasal Cannula 2.0 28 01/24/18 08:00 Nasal Cannula 2.0 01/24/18 08:00 98.1 70 19 116/70 98 98.1 01/24/18 04:00 97.7 83 18 120/71 94 97.7 01/23/18 23:51 98.2 94 18 111/62 100 98.2 01/23/18 21:00 Nasal Cannula 2.0 01/23/18 20:00 98.7 100 18 125/69 95 98.7 01/23/18 19:00 98 Nasal Cannula 2.0 28 01/23/18 19:00 Nasal Cannula 2.0 28 01/23/18 19:00 98 20 Nasal Cannula 2.0 28 01/23/18 16:11 98.2 90 19 116/62 99 Nasal Cannula 98.2 Intake and Output 01/23/18 01/24/18 19:00 07:00 Intake Total 550 ml 260 ml Balance 550 ml 260 ml Intake Oral 260 ml Other 550 ml # Voids 4 Objective General Appearance: cachetic HEENT: normocephalic Respiratory/Chest: chest wall non-tender, lungs clear Breasts: no masses Cardiovascular: normal peripheral pulses, normal rate Abdomen: normal bowel sounds, soft, non tender Extremities: no cyanosis, no clubbing Neurologic/Psychiatric: 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-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 grossly normal, no motor/sensory deficits Lymphatic: no neck adenopathy Laboratory Tests 01/24/18 05:15: White Blood Count 6.8, Red Blood Count 3.64L, Hemoglobin 9.1L, Hematocrit 31.7L , Mean Corpuscular Volume 87, Mean Corpuscular Hemoglobin 25.1L, Mean Corpuscular Hemoglobin Concent 28.8L, Red Cell Distribution Width 14.8, Platelet Count 139L, Mean Platelet Volume 6.4L, Neutrophils (%) (Auto) 38.4L, Lymphocytes (%) (Auto) 52.1H, Monocytes (%) (Auto) 7.7, Eosinophils (%) (Auto) 0.6, Basophils (%) (Auto) 1.1, Sodium Level 147H, Potassium Level 4.4, Chloride Level 105, Carbon Dioxide Level > 45*H, Blood Urea Nitrogen 11, Creatinine 0.8, Estimat Glomerular Filtration Rate > 60, Glucose Level 73L, Calcium Level 9.6 Current Medications Medications (Trade) Dose Ordered Sig/Hansel Route PRN Reason Start Time Stop Time Status Last Admin Dose Admin Albuterol/ Ipratropium (Albuterol/ Ipratropium) 3 ml Q6H PRN HHN Shortness of Breath 01/21/18 21:00 01/27/18 20:59 Clonidine HCl (Catapres Tab) 0.1 mg Q4H PRN ORAL sbp more than 160mmHg 01/21/18 21:00 02/20/18 20:59 Dextrose (Dextrose 50%) 25 ml STAT PRN IV Blood Sugar btwn 60-69 mg/dL 01/21/18 21:00 02/20/18 20:59 Dextrose (Dextrose 50%) 50 ml STAT PRN IV BS less than 60mg/dl 01/21/18 21:00 02/20/18 20:59 Docusate Sodium (Colace) 100 mg THREE TIMES A DAY ORAL 01/22/18 09:00 02/19/18 17:59 01/24/18 09:18 Insulin Aspart (NovoLOG) BEFORE MEALS AND HS SUBQ 01/21/18 21:00 02/19/18 16:29 01/24/18 12:11 Insulin Aspart (NovoLOG) 10 units NOVOTIAC SUBQ 01/23/18 11:50 02/22/18 11:49 01/24/18 06:15 Insulin Detemir (Levemir) 18 units EVERY 12 HOURS SUBQ 5/9/18 09:00 02/19/18 08:59 01/24/18 09:19 Lorazepam (Ativan) 0.5 mg Q4H PRN ORAL For Anxiety 01/21/18 21:00 01/28/18 20:59 Polyethylene Glycol (Miralax) 17 gm BEDTIME ORAL 01/21/18 21:00 02/19/18 20:59 01/23/18 21:15 Sennosides (Senokot) 1 tab DAILY ORAL 01/22/18 09:00 02/19/18 08:59 01/23/18 09:11 Vitamin A/Vitamin D (A & D Oint) 1 applic EVERY 12 HOURS TOPIC 01/21/18 21:00 02/19/18 20:59 01/24/18 09:20 Leni Watts MD January 24, 2018 14:40
[2018-01-24 16:00] VITALS: BP 123/60
--- NOTE | 2018-01-24 16:22 | Infectious Diseases Prog Note ---
Assessment/Plan Assessment/Plan Assessment: Acute hypoxic resp failure improved COPD exacerbation, s/p -CXR 01/21: Mild pulmonary vascular congestion may be present. Correlate clinically. Left pleural effusion suspected -CXR: No acute disease Afebrile, no leukocytosis Recent acute hypoxic failure and PNA 11/2015 -sp cx 12/04: E.coli (davila S), P. mirabilis (davila S) Influenza sc : Neg transaminitis improving Chronic Hep C, untreated VL 3.8 m,illions Hep panel : A Imm ; B not immune HIV Neg hx of trach s/p removal COPD Dm2 HTN [facility] resident Plan: - Monitor pt off of AB Rx -12/24 SP Levaquin # 5 /5 -12/10 SP Cefepime #7 -12/06 SP Vanco #3 -Monitor CBC/BMP, temperatures -aspiration precautions Hem fup, re TCP needs treatment of Hep C as outpatient needs Hep B vaccine as outpatient Subjective Allergies: Coded Allergies: Shrimp (Unverified Allergy, Unknown, 12/04/17) Subjective afebrile off abx no leukcoytosis Objective Vital Signs Last 24 Hour Vital Signs Date Time Temp Pulse Resp B/P (MAP) Pulse Ox O2 Delivery O2 Flow Rate FiO2 01/24/18 12:00 Nasal Cannula 2.0 01/24/18 12:00 98.2 90 19 132/79 99 98.2 01/24/18 08:17 Nasal Cannula 2.0 28 01/24/18 08:17 98 Nasal Cannula 2.0 28 01/24/18 08:17 97 18 Nasal Cannula 2.0 28 01/24/18 08:00 Nasal Cannula 2.0 01/24/18 08:00 98.1 70 19 116/70 98 98.1 01/24/18 04:00 97.7 83 18 120/71 94 97.7 01/23/18 23:51 98.2 94 18 111/62 100 98.2 01/23/18 21:00 Nasal Cannula 2.0 01/23/18 20:00 98.7 100 18 125/69 95 98.7 01/23/18 19:00 98 Nasal Cannula 2.0 28 01/23/18 19:00 Nasal Cannula 2.0 28 01/23/18 19:00 98 20 Nasal Cannula 2.0 28 Height (Feet): 5 Height (Inches): 4.00 Weight (Pounds): 148 Objective General Appearance: cachetic HEENT: normocephalic Respiratory/Chest: chest wall non-tender, lungs clear Breasts: no masses Cardiovascular: normal peripheral pulses, normal rate Abdomen: normal bowel sounds, soft, non tender Extremities: no cyanosis, no clubbing 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/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, no motor/sensory deficits Lymphatic: no neck adenopathy Laboratory Tests Test 01/24/18 05:15 White Blood Count 6.8 K/UL (4.8-10.8) Red Blood Count 3.64 M/UL (4.20-5.40) L Hemoglobin 9.1 G/DL (12.0-16.0) L Hematocrit 31.7 % (37.0-47.0) L Mean Corpuscular Volume 87 FL (80-99) Mean Corpuscular Hemoglobin 25.1 PG (27.0-31.0) L Mean Corpuscular Hemoglobin Concent 28.8 G/DL (32.0-36.0) L Red Cell Distribution Width 14.8 % (11.6-14.8) Platelet Count 139 K/UL (150-450) L Mean Platelet Volume 6.4 FL (6.5-10.1) L Neutrophils (%) (Auto) 38.4 % (45.0-75.0) L Lymphocytes (%) (Auto) 52.1 % (20.0-45.0) H Monocytes (%) (Auto) 7.7 % (1.0-10.0) Eosinophils (%) (Auto) 0.6 % (0.0-3.0) Basophils (%) (Auto) 1.1 % (0.0-2.0) Sodium Level 147 MMOL/L (136-145) H Potassium Level 4.4 MMOL/L (3.5-5.1) Chloride Level 105 MMOL/L (98-107) Carbon Dioxide Level > 45 MMOL/L (21-32) *H Blood Urea Nitrogen 11 mg/dL (7-18) Creatinine 0.8 MG/DL (0.55-1.30) Estimat Glomerular Filtration Rate > 60 mL/min (>60) Glucose Level 73 MG/DL (74-106) L Calcium Level 9.6 MG/DL (8.5-10.1) Current Medications Medications (Trade) Dose Ordered Sig/Hansel Route PRN Reason Start Time Stop Time Status Last Admin Dose Admin Albuterol/ Ipratropium (Albuterol/ Ipratropium) 3 ml Q6H PRN HHN Shortness of Breath 01/21/18 21:00 01/27/18 20:59 Clonidine HCl (Catapres Tab) 0.1 mg Q4H PRN ORAL sbp more than 160mmHg 01/21/18 21:00 02/20/18 20:59 Dextrose (Dextrose 50%) 25 ml STAT PRN IV Blood Sugar btwn 60-69 mg/dL 01/21/18 21:00 02/20/18 20:59 Dextrose (Dextrose 50%) 50 ml STAT PRN IV BS less than 60mg/dl 01/21/18 21:00 02/20/18 20:59 Docusate Sodium (Colace) 100 mg THREE TIMES A DAY ORAL 01/22/18 09:00 02/19/18 17:59 01/24/18 09:18 Insulin Aspart (NovoLOG) BEFORE MEALS AND HS SUBQ 01/21/18 21:00 02/19/18 16:29 01/24/18 12:11 Insulin Aspart (NovoLOG) 10 units NOVOTIAC SUBQ 01/23/18 11:50 02/22/18 11:49 01/24/18 06:15 Insulin Detemir (Levemir) 18 units EVERY 12 HOURS SUBQ 01/23/18 09:00 02/19/18 08:59 01/24/18 09:19 Lorazepam (Ativan) 0.5 mg Q4H PRN ORAL For Anxiety 01/21/18 21:00 01/28/18 20:59 Polyethylene Glycol (Miralax) 17 gm BEDTIME ORAL 01/21/18 21:00 02/19/18 20:59 01/23/18 21:15 Sennosides (Senokot) 1 tab DAILY ORAL 01/22/18 09:00 02/19/18 08:59 01/23/18 09:11 Vitamin A/Vitamin D (A & D Oint) 1 applic EVERY 12 HOURS TOPIC 01/21/18 21:00 02/19/18 20:59 01/24/18 09:20 Caterina Elizondo M.D. January 24, 2018 16:22
--- NOTE | 2018-01-24 19:13 | Internal Med Progress Note ---
Subjective Date of Service: January 24, 2018 Physician Name Dwaine Stevenson Attending Physician Tone Fried MD Current Medications Medications (Trade) Dose Ordered Sig/Hansel Route PRN Reason Start Time Stop Time Status Last Admin Dose Admin Albuterol/ Ipratropium (Albuterol/ Ipratropium) 3 ml Q6H PRN HHN Shortness of Breath 01/21/18 21:00 01/27/18 20:59 Clonidine HCl (Catapres Tab) 0.1 mg Q4H PRN ORAL sbp more than 160mmHg 01/21/18 21:00 02/20/18 20:59 Dextrose (Dextrose 50%) 25 ml STAT PRN IV Blood Sugar btwn 60-69 mg/dL 01/21/18 21:00 02/20/18 20:59 Dextrose (Dextrose 50%) 50 ml STAT PRN IV BS less than 60mg/dl 01/21/18 21:00 02/20/18 20:59 Docusate Sodium (Colace) 100 mg THREE TIMES A DAY ORAL 01/22/18 09:00 02/19/18 17:59 01/24/18 09:18 Insulin Aspart (NovoLOG) BEFORE MEALS AND HS SUBQ 01/21/18 21:00 02/19/18 16:29 01/24/18 16:53 Insulin Aspart (NovoLOG) 10 units NOVOTIAC SUBQ 01/23/18 11:50 02/22/18 11:49 01/24/18 06:15 Insulin Detemir (Levemir) 18 units EVERY 12 HOURS SUBQ 01/23/18 09:00 02/19/18 08:59 01/24/18 09:19 Lorazepam (Ativan) 0.5 mg Q4H PRN ORAL For Anxiety 01/21/18 21:00 01/28/18 20:59 Polyethylene Glycol (Miralax) 17 gm BEDTIME ORAL 01/21/18 21:00 02/19/18 20:59 01/23/18 21:15 Sennosides (Senokot) 1 tab DAILY ORAL 01/22/18 09:00 02/19/18 08:59 01/23/18 09:11 Vitamin A/Vitamin D (A & D Oint) 1 applic EVERY 12 HOURS TOPIC 01/21/18 21:00 02/19/18 20:59 01/24/18 09:20 Allergies: Coded Allergies: Shrimp (Unverified Allergy, Unknown, 12/04/17) ROS Limited/Unobtainable: No Constitutional: Reports: no symptoms HEENT: Reports: no symptoms Cardiovascular: Reports: no symptoms Respiratory: Reports: shortness of breath Gastrointestinal/Abdominal: Reports: no symptoms Genitourinary: Reports: no symptoms Neurologic/Psychiatric: Reports: no symptoms Subjective 67 YO F admitted with respiratory failure. Now acute COPD exacerbation. Cover for Juan Pablo Fried. Objective Last Vital Signs Date Time Temp Pulse Resp B/P (MAP) Pulse Ox O2 Delivery O2 Flow Rate FiO2 01/24/18 16:00 97.4 90 20 123/60 97.4 01/24/18 12:00 Nasal Cannula 2.0 01/24/18 12:00 99 01/24/18 08:17 28 Laboratory Tests Test 01/24/18 05:15 White Blood Count 6.8 K/UL (4.8-10.8) Red Blood Count 3.64 M/UL (4.20-5.40) L Hemoglobin 9.1 G/DL (12.0-16.0) L Hematocrit 31.7 % (37.0-47.0) L Mean Corpuscular Volume 87 FL (80-99) Mean Corpuscular Hemoglobin 25.1 PG (27.0-31.0) L Mean Corpuscular Hemoglobin Concent 28.8 G/DL (32.0-36.0) L Red Cell Distribution Width 14.8 % (11.6-14.8) Platelet Count 139 K/UL (150-450) L Mean Platelet Volume 6.4 FL (6.5-10.1) L Neutrophils (%) (Auto) 38.4 % (45.0-75.0) L Lymphocytes (%) (Auto) 52.1 % (20.0-45.0) H Monocytes (%) (Auto) 7.7 % (1.0-10.0) Eosinophils (%) (Auto) 0.6 % (0.0-3.0) Basophils (%) (Auto) 1.1 % (0.0-2.0) Sodium Level 147 MMOL/L (136-145) H Potassium Level 4.4 MMOL/L (3.5-5.1) Chloride Level 105 MMOL/L (98-107) Carbon Dioxide Level > 45 MMOL/L (21-32) *H Blood Urea Nitrogen 11 mg/dL (7-18) Creatinine 0.8 MG/DL (0.55-1.30) Estimat Glomerular Filtration Rate > 60 mL/min (>60) Glucose Level 73 MG/DL (74-106) L Calcium Level 9.6 MG/DL (8.5-10.1) Intake and Output 01/23/18 01/24/18 19:00 07:00 Intake Total 550 ml 260 ml Balance 550 ml 260 ml Intake Oral 260 ml Other 550 ml # Voids 4 Objective General Appearance: WD/WN, no apparent distress, alert EENT: PERRL/EOMI, normal ENT inspection Neck: non-tender, normal alignment, supple Cardiovascular: tachycardia; normal peripheral pulses,regular rhythm, no gallop /murmur, no JVD Respiratory/Chest: respiratory distress, crackles/rales, rhonchi - bilaterally , expiratory wheezing Abdomen: normal bowel sounds, non tender, soft, no organomegaly, no mass Edema: trace edema 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 (3) HTN (hypertension) Assessment & Plan: Continue norvasc (4) Respiratory distress (5) COPD (chronic obstructive pulmonary disease) Assessment & Plan: Continue duoneb prn. See pulmonary note. (6) Hepatitis C (7) Tachycardia Assessment & Plan: Improved; see cardiology note Assessment/Plan Discharge planning: residential facility when bed available. Dwaine Stevenson MD January 24, 2018 19:13
[2018-01-24 19:23] VITALS: BP 132/65
--- NOTE | 2018-01-24 19:38 | General Progress Note ---
Assessment/Plan Problem List: (1) Diabetes mellitus out of control ICD Codes: E11.65 - Type 2 diabetes mellitus with hyperglycemia SNOMED: 83190573, 551101330 (2) COPD (chronic obstructive pulmonary disease) ICD Codes: J44.9 - Chronic obstructive pulmonary disease, unspecified SNOMED: 17309744 (3) Acute and chronic respiratory failure ICD Codes: J96.20 - Acute and chronic respiratory failure, unspecified whether with hypoxia or hypercapnia SNOMED: 90521765 Assessment/Plan continue Levemir 18 units bid continue Novolog to 10 units ac tid continue NISS Subjective Allergies: Coded Allergies: Shrimp (Unverified Allergy, Unknown, 12/04/17) All Systems: reviewed and negative except above Subjective events noted - interval notes reviewed Objective Last 24 Hour Vital Signs Date Time Temp Pulse Resp B/P (MAP) Pulse Ox O2 Delivery O2 Flow Rate FiO2 01/24/18 19:23 98.1 101 20 132/65 91 Room Air 98.1 01/24/18 16:00 97.4 90 20 123/60 97.4 01/24/18 12:00 Nasal Cannula 2.0 01/24/18 12:00 98.2 90 19 132/79 99 98.2 01/24/18 08:17 Nasal Cannula 2.0 28 01/24/18 08:17 98 Nasal Cannula 2.0 28 01/24/18 08:17 97 18 Nasal Cannula 2.0 28 01/24/18 08:00 Nasal Cannula 2.0 01/24/18 08:00 98.1 70 19 116/70 98 98.1 01/24/18 04:00 97.7 83 18 120/71 94 97.7 01/23/18 23:51 98.2 94 18 111/62 100 98.2 01/23/18 21:00 Nasal Cannula 2.0 01/23/18 20:00 98.7 100 18 125/69 95 98.7 Intake and Output 01/23/18 01/24/18 19:00 07:00 Intake Total 550 ml 260 ml Balance 550 ml 260 ml Intake Oral 260 ml Other 550 ml # Voids 4 Laboratory Tests 01/24/18 05:15: White Blood Count 6.8, Red Blood Count 3.64L, Hemoglobin 9.1L, Hematocrit 31.7L , Mean Corpuscular Volume 87, Mean Corpuscular Hemoglobin 25.1L, Mean Corpuscular Hemoglobin Concent 28.8L, Red Cell Distribution Width 14.8, Platelet Count 139L, Mean Platelet Volume 6.4L, Neutrophils (%) (Auto) 38.4L, Lymphocytes (%) (Auto) 52.1H, Monocytes (%) (Auto) 7.7, Eosinophils (%) (Auto) 0.6, Basophils (%) (Auto) 1.1, Sodium Level 147H, Potassium Level 4.4, Chloride Level 105, Carbon Dioxide Level > 45*H, Blood Urea Nitrogen 11, Creatinine 0.8, Estimat Glomerular Filtration Rate > 60, Glucose Level 73L, Calcium Level 9.6 Height (Feet): 5 Height (Inches): 4.00 Weight (Pounds): 148 General Appearance: no apparent distress Neck: normal alignment Cardiovascular: normal rate Respiratory/Chest: decreased breath sounds Abdomen: normal bowel sounds Pelvis: normal external exam Edema: 1+ Arm (L), 1+ Arm (R), 1+ Leg (L), 1+ Leg (R), 1+ Pedal (L), 1+ Pedal ( R), 1+ Generalized Objective Current Medications Medications (Trade) Dose Ordered Sig/Hansel Route PRN Reason Start Time Stop Time Status Last Admin Dose Admin Albuterol/ Ipratropium (Albuterol/ Ipratropium) 3 ml Q6H PRN HHN Shortness of Breath 01/21/18 21:00 01/27/18 20:59 Clonidine HCl (Catapres Tab) 0.1 mg Q4H PRN ORAL sbp more than 160mmHg 01/21/18 21:00 02/20/18 20:59 Dextrose (Dextrose 50%) 25 ml STAT PRN IV Blood Sugar btwn 60-69 mg/dL 01/21/18 21:00 02/20/18 20:59 Dextrose (Dextrose 50%) 50 ml STAT PRN IV BS less than 60mg/dl 01/21/18 21:00 02/20/18 20:59 Docusate Sodium (Colace) 100 mg THREE TIMES A DAY ORAL 01/22/18 09:00 02/19/18 17:59 01/24/18 09:18 Insulin Aspart (NovoLOG) BEFORE MEALS AND HS SUBQ 01/21/18 21:00 02/19/18 16:29 01/24/18 16:53 Insulin Aspart (NovoLOG) 10 units NOVOTIAC SUBQ 01/23/18 11:50 02/22/18 11:49 01/24/18 06:15 Insulin Detemir (Levemir) 18 units EVERY 12 HOURS SUBQ 01/23/18 09:00 02/19/18 08:59 01/24/18 09:19 Lorazepam (Ativan) 0.5 mg Q4H PRN ORAL For Anxiety 01/21/18 21:00 01/28/18 20:59 Polyethylene Glycol (Miralax) 17 gm BEDTIME ORAL 01/21/18 21:00 02/19/18 20:59 01/23/18 21:15 Sennosides (Senokot) 1 tab DAILY ORAL 01/22/18 09:00 02/19/18 08:59 01/23/18 09:11 Vitamin A/Vitamin D (A & D Oint) 1 applic EVERY 12 HOURS TOPIC 01/21/18 21:00 02/19/18 20:59 01/24/18 09:20 Item Value Date Time Bedside Blood Glucose 205 mg/dl H 01/24/18 1653 Bedside Blood Glucose 174 mg/dl H 01/24/18 1211 Bedside Blood Glucose 188 mg/dl H 01/24/18 0919 Bedside Blood Glucose 93 mg/dl 01/24/18 0615 Bedside Blood Glucose 321 mg/dl H 01/23/18 2155 FEMI MCKEON January 24, 2018 19:38
--- NOTE | 2018-01-24 19:41 | Cardiology Report ---
APPROVED REPORT EKG Measurement Heart [id number] Sinus tachycardia with premature atrial complexes with aberrant conduction Otherwise normal ECG
[2018-01-24] MEDS: Miralax 17gm pkt ORAL SCH (21:00)
--- NOTE | 2018-01-24 23:12 | General Progress Note ---
Assessment/Plan Assessment/Plan #. Thrombocytopenia, secondary to hepatitis C --> Hep A and C antibody test (+) --> platelet count improved from yesterday. --> Monitor for improvement. Transfuse if platelets <20k #. Anemia due to underlying chronic disease. Mild at this time. --> Continue to closely monitor. Has been stable. --> Blood transfusion not required unless symptomatic or hgb <7 --> Reviewed anemia workup. Iron 110, TIBC 230, Ferritin 90, B12 821, Folate 6.6 , TSH 1.4 #. Leukopenia, likely secondary to hepatitis C, currently improved. --> No leukocytosis is noted. The patient has been afebrile. --> Resolved at this time. #. Tachycardia. --> Improved. Refer to cardiology note. #. Acute on hypoxic respiratory failure --> status post tracheostomy, improved. #. Hepatitis C. --> Elevated liver enzymes. Management as an outpatient. --> Appreciate Infectious Disease service evaluation. #. Hypertension. Systolic blood pressure goal less than 140. --> Improved. #. COPD. --> On duoneb prn. DC Planning. Awaiting placement. Subjective Date patient seen: January 24, 2018 Constitutional: Denies: no symptoms, chills, diaphoresis, fever, malaise, weakness, other HEENT: Denies: no symptoms, eye pain, blurred vision, tearing, double vision, ear pain, ear discharge, nose pain, nose congestion, throat pain, throat swelling, mouth pain, mouth swelling, other Cardiovascular: Denies: no symptoms, chest pain, edema, irregular heart rate, lightheadedness, palpitations, syncope, other Respiratory: Denies: no symptoms, cough, orthopnea, shortness of breath, SOB with excertion, SOB at rest, sputum, stridor, wheezing, other Gastrointestinal/Abdominal: Denies: no symptoms, abdomen distended, abdominal pain, black stools, tarry stools, blood in stool, constipated, diarrhea, difficulty swallowing, nausea, poor appetite, poor fluid intake, rectal bleeding , vomiting, other Genitourinary: Denies: no symptoms, burning, discharge, frequency, flank pain, hematuria, incontinence, pain, urgency, other Neurologic/Psychiatric: Denies: no symptoms, anxiety, depressed, emotional problems, headache, numbness, paresthesia, pre-existing deficit, seizure, tingling, tremors, weakness, other Hematologic/Lymphatic: Reports: anemia Allergies: Coded Allergies: Shrimp (Unverified Allergy, Unknown, 12/04/17) Subjective Plts improved. H/H stable. No acute events. Objective Last 24 Hour Vital Signs Date Time Temp Pulse Resp B/P (MAP) Pulse Ox O2 Delivery O2 Flow Rate FiO2 01/24/18 20:00 99 22 Nasal Cannula 2.0 28 01/24/18 20:00 95 Nasal Cannula 2.0 28 01/24/18 20:00 Nasal Cannula 2.0 28 01/24/18 19:23 98.1 101 20 132/65 91 Room Air 98.1 01/24/18 16:00 97.4 90 20 123/60 97.4 01/24/18 12:00 Nasal Cannula 2.0 01/24/18 12:00 98.2 90 19 132/79 99 98.2 01/24/18 08:17 Nasal Cannula 2.0 28 01/24/18 08:17 98 Nasal Cannula 2.0 28 01/24/18 08:17 97 18 Nasal Cannula 2.0 28 01/24/18 08:00 Nasal Cannula 2.0 01/24/18 08:00 98.1 70 19 116/70 98 98.1 01/24/18 04:00 97.7 83 18 120/71 94 97.7 01/23/18 23:51 98.2 94 18 111/62 100 98.2 Intake and Output 01/23/18 01/24/18 19:00 07:00 Intake Total 550 ml 260 ml Balance 550 ml 260 ml Intake Oral 260 ml Other 550 ml # Voids 4 Laboratory Tests 01/24/18 05:15: White Blood Count 6.8, Red Blood Count 3.64L, Hemoglobin 9.1L, Hematocrit 31.7L , Mean Corpuscular Volume 87, Mean Corpuscular Hemoglobin 25.1L, Mean Corpuscular Hemoglobin Concent 28.8L, Red Cell Distribution Width 14.8, Platelet Count 139L, Mean Platelet Volume 6.4L, Neutrophils (%) (Auto) 38.4L, Lymphocytes (%) (Auto) 52.1H, Monocytes (%) (Auto) 7.7, Eosinophils (%) (Auto) 0.6, Basophils (%) (Auto) 1.1, Sodium Level 147H, Potassium Level 4.4, Chloride Level 105, Carbon Dioxide Level > 45*H, Blood Urea Nitrogen 11, Creatinine 0.8, Estimat Glomerular Filtration Rate > 60, Glucose Level 73L, Calcium Level 9.6 Height (Feet): 5 Height (Inches): 4.00 Weight (Pounds): 148 General Appearance: no apparent distress Neck: supple Cardiovascular: normal rate, regular rhythm Respiratory/Chest: respiratory distress, crackles/rales, rhonchi - bilaterally Abdomen: non tender, soft Edema: trace edema Anuj Alfaro MD January 24, 2018 23:12
[2018-01-24 23:34] VITALS: BP 98/58
[2018-01-25 04:29] VITALS: BP 120/69
[2018-01-25] MEDS: NovoLOG Insulin Flexpen SUBQ SCH ×7 (06:30→22:12)
[2018-01-25 08:22] VITALS: BP 128/63
[2018-01-25] MEDS: Docusate 100mg cap ORAL SCH ×3 (08:42→18:00)
[2018-01-25] MEDS: Sennosides 8.6mg ORAL SCH (08:42)
[2018-01-25] MEDS: Levemir Flexpen SUBQ SCH ×2 (08:44→22:05)
[2018-01-25] MEDS: Vitamin A&D Oint 2oz Tube TOPIC SCH ×2 (08:45→22:20)
[2018-01-25 11:48] VITALS: BP 115/70
--- NOTE | 2018-01-25 12:59 | General Progress Note ---
Assessment/Plan Problem List: (1) Hyperkalemia ICD Codes: E87.5 - Hyperkalemia SNOMED: 97775202 (2) Acidosis ICD Codes: E87.2 - Acidosis SNOMED: 00367010 (3) CO2 retention ICD Codes: E87.2 - Acidosis SNOMED: 16040238 (4) Respiratory distress ICD Codes: R06.03 - Acute respiratory distress SNOMED: 054392937 (5) COPD (chronic obstructive pulmonary disease) ICD Codes: J44.9 - Chronic obstructive pulmonary disease, unspecified SNOMED: 57007000 (6) Hepatitis C ICD Codes: B19.20 - Unspecified viral hepatitis C without hepatic coma SNOMED: 74024911 (7) Acute and chronic respiratory failure ICD Codes: J96.20 - Acute and chronic respiratory failure, unspecified whether with hypoxia or hypercapnia SNOMED: 63613012 (8) Diabetes mellitus out of control ICD Codes: E11.65 - Type 2 diabetes mellitus with hyperglycemia SNOMED: 51668208, 247796207 (9) Tachycardia ICD Codes: R00.0 - Tachycardia, unspecified SNOMED: 7936925 (10) Hypertension ICD Codes: I10 - Essential (primary) hypertension SNOMED: 11587610 Status: stable, progressing Assessment/Plan 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 Objective Last 24 Hour Vital Signs Date Time Temp Pulse Resp B/P (MAP) Pulse Ox O2 Delivery O2 Flow Rate FiO2 01/25/18 11:48 97.8 98 20 115/70 100 97.8 01/25/18 11:48 Nasal Cannula 2.0 01/25/18 08:22 Nasal Cannula 2.0 01/25/18 08:22 97.7 102 20 128/63 99 97.7 01/25/18 04:29 97.3 92 20 120/69 98 Room Air 97.3 01/24/18 23:34 97.7 106 20 98/58 96 Nasal Cannula 97.7 01/24/18 20:00 99 22 Nasal Cannula 2.0 28 01/24/18 20:00 95 Nasal Cannula 2.0 28 01/24/18 20:00 Nasal Cannula 2.0 28 01/24/18 19:23 98.1 101 20 132/65 91 Room Air 98.1 01/24/18 16:00 97.4 90 20 123/60 97.4 Intake and Output 01/24/18 01/25/18 19:00 07:00 Intake Total 240 ml 360 ml Balance 240 ml 360 ml Intake Oral 240 ml 360 ml # Bowel Movements 1 Height (Feet): 5 Height (Inches): 4.00 Weight (Pounds): 147 General Appearance: WD/WN, no apparent distress, alert Grisel Jay M.D. January 25, 2018 12:59
--- NOTE | 2018-01-25 15:06 | General Progress Note ---
Assessment/Plan Problem List: (1) Diabetes mellitus out of control ICD Codes: E11.65 - Type 2 diabetes mellitus with hyperglycemia SNOMED: 37948279, 468372119 (2) COPD (chronic obstructive pulmonary disease) ICD Codes: J44.9 - Chronic obstructive pulmonary disease, unspecified SNOMED: 11339634 (3) Acute and chronic respiratory failure ICD Codes: J96.20 - Acute and chronic respiratory failure, unspecified whether with hypoxia or hypercapnia SNOMED: 24804375 Assessment/Plan continue Levemir 18 units bid continue Novolog to 10 units ac tid continue NISS Subjective Allergies: Coded Allergies: Shrimp (Unverified Allergy, Unknown, 12/04/17) All Systems: reviewed and negative except above Subjective events noted - interval notes reviewed Objective Last 24 Hour Vital Signs Date Time Temp Pulse Resp B/P (MAP) Pulse Ox O2 Delivery O2 Flow Rate FiO2 01/25/18 11:48 97.8 98 20 115/70 100 97.8 01/25/18 11:48 Nasal Cannula 2.0 01/25/18 08:22 Nasal Cannula 2.0 01/25/18 08:22 97.7 102 20 128/63 99 97.7 01/25/18 04:29 97.3 92 20 120/69 98 Room Air 97.3 01/24/18 23:34 97.7 106 20 98/58 96 Nasal Cannula 97.7 01/24/18 20:00 99 22 Nasal Cannula 2.0 28 01/24/18 20:00 95 Nasal Cannula 2.0 28 01/24/18 20:00 Nasal Cannula 2.0 28 01/24/18 19:23 98.1 101 20 132/65 91 Room Air 98.1 01/24/18 16:00 97.4 90 20 123/60 97.4 Intake and Output 01/24/18 01/25/18 19:00 07:00 Intake Total 240 ml 360 ml Balance 240 ml 360 ml Intake Oral 240 ml 360 ml # Bowel Movements 1 Height (Feet): 5 Height (Inches): 4.00 Weight (Pounds): 147 General Appearance: no apparent distress Neck: normal alignment Cardiovascular: normal rate Respiratory/Chest: lungs clear Abdomen: normal bowel sounds Edema: no edema noted Arm (L), no edema noted Arm (R), no edema noted Leg (L), no edema noted Leg (R), no edema noted Pedal (L), no edema noted Pedal (R), no edema noted Generalized Objective Item Value Date Time Bedside Blood Glucose 254 mg/dl H 01/25/18 1204 Bedside Blood Glucose 124 mg/dl H 01/25/18 0844 Bedside Blood Glucose 124 mg/dl H 01/25/18 0631 Bedside Blood Glucose 276 mg/dl H 01/24/18 2212 Bedside Blood Glucose 205 mg/dl H 01/24/18 1653 FEMI MCKEON January 25, 2018 15:06
--- NOTE | 2018-01-25 15:33 | Pulmonology Progress Note ---
Assessment/Plan Problems: (1) Acute and chronic respiratory failure (2) COPD (chronic obstructive pulmonary disease) (3) Hepatitis C Assessment/Plan doing better no new events no new complains respiratory treatment still in search of a new place Subjective ROS Limited/Unobtainable: No Constitutional: Reports: no symptoms HEENT: Repors: no symptoms Respiratory: Reports: no symptoms Allergies: Coded Allergies: Shrimp (Unverified Allergy, Unknown, 12/04/17) Objective Last 24 Hour Vital Signs Date Time Temp Pulse Resp B/P (MAP) Pulse Ox O2 Delivery O2 Flow Rate FiO2 01/25/18 11:48 97.8 98 20 115/70 100 97.8 01/25/18 11:48 Nasal Cannula 2.0 01/25/18 08:22 Nasal Cannula 2.0 01/25/18 08:22 97.7 102 20 128/63 99 97.7 01/25/18 04:29 97.3 92 20 120/69 98 Room Air 97.3 01/24/18 23:34 97.7 106 20 98/58 96 Nasal Cannula 97.7 01/24/18 20:00 99 22 Nasal Cannula 2.0 28 01/24/18 20:00 95 Nasal Cannula 2.0 28 01/24/18 20:00 Nasal Cannula 2.0 28 01/24/18 19:23 98.1 101 20 132/65 91 Room Air 98.1 01/24/18 16:00 97.4 90 20 123/60 97.4 Intake and Output 01/24/18 01/25/18 19:00 07:00 Intake Total 240 ml 360 ml Balance 240 ml 360 ml Intake Oral 240 ml 360 ml # Bowel Movements 1 Objective General Appearance: cachetic HEENT: normocephalic Respiratory/Chest: chest wall non-tender, lungs clear Breasts: no masses Cardiovascular: normal peripheral pulses, normal rate Abdomen: normal bowel sounds, soft, non tender Extremities: no cyanosis, no clubbing 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 normal, no motor/sensory deficits Lymphatic: no neck adenopathy Current Medications Medications (Trade) Dose Ordered Sig/Hansel Route PRN Reason Start Time Stop Time Status Last Admin Dose Admin Albuterol/ Ipratropium (Albuterol/ Ipratropium) 3 ml Q6H PRN HHN Shortness of Breath 01/21/18 21:00 01/27/18 20:59 Clonidine HCl (Catapres Tab) 0.1 mg Q4H PRN ORAL sbp more than 160mmHg 01/21/18 21:00 02/20/18 20:59 Dextrose (Dextrose 50%) 25 ml STAT PRN IV Blood Sugar btwn 60-69 mg/dL 01/21/18 21:00 02/20/18 20:59 Dextrose (Dextrose 50%) 50 ml STAT PRN IV BS less than 60mg/dl 01/21/18 21:00 02/20/18 20:59 Docusate Sodium (Colace) 100 mg THREE TIMES A DAY ORAL 01/22/18 09:00 02/19/18 17:59 01/24/18 09:18 Insulin Aspart (NovoLOG) BEFORE MEALS AND HS SUBQ 01/21/18 21:00 02/19/18 16:29 01/25/18 12:04 Insulin Aspart (NovoLOG) 10 units NOVOTIAC SUBQ 01/23/18 11:50 02/22/18 11:49 01/24/18 06:15 Insulin Detemir (Levemir) 18 units EVERY 12 HOURS SUBQ 01/23/18 09:00 02/19/18 08:59 01/25/18 08:44 Lorazepam (Ativan) 0.5 mg Q4H PRN ORAL For Anxiety 01/21/18 21:00 01/28/18 20:59 Polyethylene Glycol (Miralax) 17 gm BEDTIME ORAL 01/21/18 21:00 02/19/18 20:59 01/23/18 21:15 Sennosides (Senokot) 1 tab DAILY ORAL 01/22/18 09:00 02/19/18 08:59 01/23/18 09:11 Vitamin A/Vitamin D (A & D Oint) 1 applic EVERY 12 HOURS TOPIC 01/21/18 21:00 02/19/18 20:59 01/25/18 08:45 Leni Watts MD January 25, 2018 15:33
[2018-01-25 15:55] VITALS: BP 114/58
--- NOTE | 2018-01-25 17:22 | Infectious Diseases Prog Note ---
Assessment/Plan Assessment/Plan Assessment: Acute hypoxic resp failure improved COPD exacerbation, s/p -CXR 01/21: Mild pulmonary vascular congestion may be present. Correlate clinically. Left pleural effusion suspected -CXR: No acute disease Afebrile, no leukocytosis Recent acute hypoxic failure and PNA 11/2015 -sp cx 12/04: E.coli (davila S), P. mirabilis (davila S) Influenza sc : Neg transaminitis improving Chronic Hep C, untreated VL 3.8 m,illions Hep panel : A Imm ; B not immune HIV Neg hx of trach s/p removal COPD Dm2 HTN [facility] resident Plan: - Monitor pt off of AB Rx -12/24 SP Levaquin # 5 /5 -12/10 SP Cefepime #7 -12/06 SP Vanco #3 -Monitor CBC/BMP, temperatures -aspiration precautions Hem fup, re TCP needs treatment of Hep C as outpatient needs Hep B vaccine as outpatient Subjective Allergies: Coded Allergies: Shrimp (Unverified Allergy, Unknown, 12/04/17) Subjective afebrile off abx no leukcoytosis Objective Vital Signs Last 24 Hour Vital Signs Date Time Temp Pulse Resp B/P (MAP) Pulse Ox O2 Delivery O2 Flow Rate FiO2 01/25/18 15:55 Nasal Cannula 2.0 01/25/18 15:55 97.7 89 20 114/58 100 97.7 01/25/18 11:48 97.8 98 20 115/70 100 97.8 01/25/18 11:48 Nasal Cannula 2.0 01/25/18 08:22 Nasal Cannula 2.0 01/25/18 08:22 97.7 102 20 128/63 99 97.7 01/25/18 04:29 97.3 92 20 120/69 98 Room Air 97.3 01/24/18 23:34 97.7 106 20 98/58 96 Nasal Cannula 97.7 01/24/18 20:00 99 22 Nasal Cannula 2.0 28 01/24/18 20:00 95 Nasal Cannula 2.0 28 01/24/18 20:00 Nasal Cannula 2.0 28 01/24/18 19:23 98.1 101 20 132/65 91 Room Air 98.1 Height (Feet): 5 Height (Inches): 4.00 Weight (Pounds): 147 Objective General Appearance: cachetic HEENT: normocephalic Respiratory/Chest: chest wall non-tender, lungs clear Breasts: no masses Cardiovascular: normal peripheral pulses, normal rate Abdomen: normal bowel sounds, soft, non tender Extremities: no cyanosis, no clubbing Neurologic/Psychiatric: jack prizer II-XII grossly normal, no motor/sensory deficits Lymphatic: no neck adenopathy Current Medications Medications (Trade) Dose Ordered Sig/Hansel Route PRN Reason Start Time Stop Time Status Last Admin Dose Admin Albuterol/ Ipratropium (Albuterol/ Ipratropium) 3 ml Q6H PRN HHN Shortness of Breath 01/21/18 21:00 01/27/18 20:59 Clonidine HCl (Catapres Tab) 0.1 mg Q4H PRN ORAL sbp more than 160mmHg 01/21/18 21:00 02/20/18 20:59 Dextrose (Dextrose 50%) 25 ml STAT PRN IV Blood Sugar btwn 60-69 mg/dL 01/21/18 21:00 02/20/18 20:59 Dextrose (Dextrose 50%) 50 ml STAT PRN IV BS less than 60mg/dl 01/21/18 21:00 02/20/18 20:59 Docusate Sodium (Colace) 100 mg THREE TIMES A DAY ORAL 01/22/18 09:00 02/19/18 17:59 01/24/18 09:18 Insulin Aspart (NovoLOG) BEFORE MEALS AND HS SUBQ 01/21/18 21:00 02/19/18 16:29 01/25/18 16:49 Insulin Aspart (NovoLOG) 10 units NOVOTIAC SUBQ 01/23/18 11:50 02/22/18 11:49 01/24/18 06:15 Insulin Detemir (Levemir) 18 units EVERY 12 HOURS SUBQ 01/23/18 09:00 02/19/18 08:59 01/25/18 08:44 Lorazepam (Ativan) 0.5 mg Q4H PRN ORAL For Anxiety 01/21/18 21:00 01/28/18 20:59 Polyethylene Glycol (Miralax) 17 gm BEDTIME ORAL 01/21/18 21:00 02/19/18 20:59 01/23/18 21:15 Sennosides (Senokot) 1 tab DAILY ORAL 01/22/18 09:00 02/19/18 08:59 01/23/18 09:11 Vitamin A/Vitamin D (A & D Oint) 1 applic EVERY 12 HOURS [facility] 01/21/18 21:00 02/19/18 20:59 01/25/18 08:45 Caterina Elizondo M.D. January 25, 2018 17:22
--- NOTE | 2018-01-25 17:26 | Internal Med Progress Note ---
Subjective Date of Service: January 25, 2018 Physician Name Dwaine Stevenson Attending Physician Tone Fried MD Current Medications Medications (Trade) Dose Ordered Sig/Hansel Route PRN Reason Start Time Stop Time Status Last Admin Dose Admin Albuterol/ Ipratropium (Albuterol/ Ipratropium) 3 ml Q6H PRN HHN Shortness of Breath 01/21/18 21:00 01/27/18 20:59 Clonidine HCl (Catapres Tab) 0.1 mg Q4H PRN ORAL sbp more than 160mmHg 01/21/18 21:00 02/20/18 20:59 Dextrose (Dextrose 50%) 25 ml STAT PRN IV Blood Sugar btwn 60-69 mg/dL 01/21/18 21:00 02/20/18 20:59 Dextrose (Dextrose 50%) 50 ml STAT PRN IV BS less than 60mg/dl 01/21/18 21:00 02/20/18 20:59 Docusate Sodium (Colace) 100 mg THREE TIMES A DAY ORAL 01/22/18 09:00 02/19/18 17:59 01/24/18 09:18 Insulin Aspart (NovoLOG) BEFORE MEALS AND HS SUBQ 01/21/18 21:00 02/19/18 16:29 01/25/18 16:49 Insulin Aspart (NovoLOG) 10 units NOVOTIAC SUBQ 01/23/18 11:50 02/22/18 11:49 01/24/18 06:15 Insulin Detemir (Levemir) 18 units EVERY 12 HOURS SUBQ 01/23/18 09:00 02/19/18 08:59 01/25/18 08:44 Lorazepam (Ativan) 0.5 mg Q4H PRN ORAL For Anxiety 01/21/18 21:00 01/28/18 20:59 Polyethylene Glycol (Miralax) 17 gm BEDTIME ORAL 01/21/18 21:00 02/19/18 20:59 01/23/18 21:15 Sennosides (Senokot) 1 tab DAILY ORAL 01/22/18 09:00 02/19/18 08:59 01/23/18 09:11 Vitamin A/Vitamin D (A & D Oint) 1 applic EVERY 12 HOURS TOPIC 01/21/18 21:00 02/19/18 20:59 01/25/18 08:45 Allergies: Coded Allergies: Shrimp (Unverified Allergy, Unknown, 12/04/17) ROS Limited/Unobtainable: No Constitutional: Reports: no symptoms HEENT: Reports: no symptoms Cardiovascular: Reports: no symptoms Respiratory: Reports: shortness of breath Gastrointestinal/Abdominal: Reports: no symptoms Genitourinary: Reports: no symptoms Neurologic/Psychiatric: Reports: no symptoms Subjective 67 YO F admitted with respiratory failure. Now acute COPD exacerbation. Cover for Int Milly Fried. Objective Last Vital Signs Date Time Temp Pulse Resp B/P (MAP) Pulse Ox O2 Delivery O2 Flow Rate FiO2 01/25/18 15:55 Nasal Cannula 2.0 01/25/18 15:55 97.7 89 20 114/58 100 97.7 01/24/18 20:00 28 Intake and Output 01/24/18 01/25/18 19:00 07:00 Intake Total 240 ml 360 ml Balance 240 ml 360 ml Intake Oral 240 ml 360 ml # Bowel Movements 1 Objective General Appearance: WD/WN, no apparent distress, alert EENT: PERRL/EOMI, normal ENT inspection Neck: non-tender, normal alignment, supple Cardiovascular: tachycardia; normal peripheral pulses,regular rhythm, no gallop /murmur, no JVD Respiratory/Chest: respiratory distress, crackles/rales, rhonchi - bilaterally , expiratory wheezing Abdomen: normal bowel sounds, non tender, soft, no organomegaly, no mass Edema: trace edema 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 (3) HTN (hypertension) Assessment & Plan: Continue norvasc (4) Respiratory distress (5) COPD (chronic obstructive pulmonary disease) Assessment & Plan: Continue duoneb prn. See pulmonary note. (6) Hepatitis C (7) Tachycardia Assessment & Plan: Improved; see cardiology note Assessment/Plan Discharge planning: nursing home facility when bed available. Dwaine Stevenson MD January 25, 2018 17:26
[2018-01-25 19:18] VITALS: BP 114/71
[2018-01-25] MEDS: Miralax 17gm pkt ORAL SCH (21:00)
[2018-01-25 23:27] VITALS: BP 121/86
--- NOTE | 2018-01-25 23:28 | General Progress Note ---
Assessment/Plan Assessment/Plan #. Thrombocytopenia, secondary to hepatitis C --> Hep A and C antibody test (+) --> platelet count improving --> Monitor for improvement. Transfuse if platelets <20k #. Anemia due to underlying chronic disease. Mild at this time. --> Continue to closely monitor. Has been stable. --> Blood transfusion not required unless symptomatic or hgb <7 --> Reviewed anemia workup. Iron 110, TIBC 230, Ferritin 90, B12 821, Folate 6.6 , TSH 1.4 #. Leukopenia, likely secondary to hepatitis C, currently improved. --> No leukocytosis is noted. The patient has been afebrile. --> Resolved at this time. #. Tachycardia. --> Improved. Refer to cardiology note. #. Acute on hypoxic respiratory failure --> status post tracheostomy, improved. #. Hepatitis C. --> Elevated liver enzymes. Management as an outpatient. --> Appreciate Infectious Disease service evaluation. #. Hypertension. Systolic blood pressure goal less than 140. --> Improved. #. COPD. --> On duoneb prn. DC Planning. Awaiting placement. Subjective Date patient seen: January 25, 2018 Constitutional: Denies: no symptoms, chills, diaphoresis, fever, malaise, weakness, other HEENT: Denies: no symptoms, eye pain, blurred vision, tearing, double vision, ear pain, ear discharge, nose pain, nose congestion, throat pain, throat swelling, mouth pain, mouth swelling, other Cardiovascular: Denies: no symptoms, chest pain, edema, irregular heart rate, lightheadedness, palpitations, syncope, other Respiratory: Denies: no symptoms, cough, orthopnea, shortness of breath, SOB with excertion, SOB at rest, sputum, stridor, wheezing, other Gastrointestinal/Abdominal: Denies: no symptoms, abdomen distended, abdominal pain, black stools, tarry stools, blood in stool, constipated, diarrhea, difficulty swallowing, nausea, poor appetite, poor fluid intake, rectal bleeding , vomiting, other Genitourinary: Denies: no symptoms, burning, discharge, frequency, flank pain, hematuria, incontinence, pain, urgency, other Neurologic/Psychiatric: Denies: no symptoms, anxiety, depressed, emotional problems, headache, numbness, paresthesia, pre-existing deficit, seizure, tingling, tremors, weakness, other Hematologic/Lymphatic: Reports: anemia Allergies: Coded Allergies: Shrimp (Unverified Allergy, Unknown, 12/04/17) Subjective Plts improved. H/H stable. No medical distress. Pending placement. Objective Last 24 Hour Vital Signs Date Time Temp Pulse Resp B/P (MAP) Pulse Ox O2 Delivery O2 Flow Rate FiO2 01/25/18 20:16 96 Nasal Cannula 2.0 28 01/25/18 20:16 92 20 Nasal Cannula 2.0 28 01/25/18 20:16 Nasal Cannula 2.0 28 01/25/18 19:18 98.1 91 20 114/71 100 Nasal Cannula 98.1 01/25/18 15:55 Nasal Cannula 2.0 01/25/18 15:55 97.7 89 20 114/58 100 97.7 01/25/18 11:48 97.8 98 20 115/70 100 97.8 01/25/18 11:48 Nasal Cannula 2.0 01/25/18 08:22 Nasal Cannula 2.0 01/25/18 08:22 97.7 102 20 128/63 99 97.7 01/25/18 04:29 97.3 92 20 120/69 98 Room Air 97.3 01/24/18 23:34 97.7 106 20 98/58 96 Nasal Cannula 97.7 Intake and Output 01/24/18 01/25/18 19:00 07:00 Intake Total 240 ml 360 ml Balance 240 ml 360 ml Intake Oral 240 ml 360 ml # Bowel Movements 1 Height (Feet): 5 Height (Inches): 4.00 Weight (Pounds): 147 General Appearance: no apparent distress Neck: normal alignment Cardiovascular: normal rate, regular rhythm Respiratory/Chest: chest wall non-tender, lungs clear Abdomen: normal bowel sounds, non tender Anuj Alfaro MD January 25, 2018 23:28
[2018-01-26 03:59] VITALS: BP 115/67
[2018-01-26] MEDS: NovoLOG Insulin Flexpen SUBQ SCH ×7 (06:29→20:24)
--- NOTE | 2018-01-26 07:55 | General Progress Note ---
Assessment/Plan Problem List: (1) Diabetes mellitus out of control ICD Codes: E11.65 - Type 2 diabetes mellitus with hyperglycemia SNOMED: 46690404, [id number] (2) COPD (chronic obstructive pulmonary disease) ICD Codes: J44.9 - Chronic obstructive pulmonary disease, unspecified SNOMED: 12337518 (3) Acute and chronic respiratory failure ICD Codes: J96.20 - Acute and chronic respiratory failure, unspecified whether with hypoxia or hypercapnia SNOMED: 94166477 Assessment/Plan continue Levemir 18 units bid continue Novolog to 10 units ac tid continue NISS Subjective Allergies: Coded Allergies: Shrimp (Unverified Allergy, Unknown, 12/04/17) All Systems: reviewed and negative except above Subjective events noted - interval notes reviewed Objective Last 24 Hour Vital Signs Date Time Temp Pulse Resp B/P (MAP) Pulse Ox O2 Delivery O2 Flow Rate FiO2 01/26/18 03:59 96.4 100 20 115/67 98 Nasal Cannula 96.4 01/26/18 03:59 Nasal Cannula 2.0 01/25/18 23:27 Nasal Cannula 2.0 01/25/18 23:27 97.5 95 20 121/86 96 Room Air 97.5 01/25/18 20:16 96 Nasal Cannula 2.0 28 01/25/18 20:16 92 20 Nasal Cannula 2.0 28 01/25/18 20:16 Nasal Cannula 2.0 28 01/25/18 19:18 98.1 91 20 114/71 100 Nasal Cannula 98.1 01/25/18 19:18 Nasal Cannula 2.0 01/25/18 15:55 Nasal Cannula 2.0 01/25/18 15:55 97.7 89 20 114/58 100 97.7 01/25/18 11:48 97.8 98 20 115/70 100 97.8 01/25/18 11:48 Nasal Cannula 2.0 01/25/18 08:22 Nasal Cannula 2.0 01/25/18 08:22 97.7 102 20 128/63 99 97.7 Intake and Output 01/25/18 01/26/18 19:00 07:00 Intake Total 960 ml 240 ml Balance 960 ml 240 ml Intake Oral 960 ml 240 ml # Voids 4 12 # Bowel Movements 1 Height (Feet): 5 Height (Inches): 4.00 Weight (Pounds): 145 General Appearance: no apparent distress Neck: normal alignment Cardiovascular: normal rate Respiratory/Chest: decreased breath sounds Abdomen: normal bowel sounds Pelvis: normal external exam Objective Current Medications Medications (Trade) Dose Ordered Sig/Hansel Route PRN Reason Start Time Stop Time Status Last Admin Dose Admin Albuterol/ Ipratropium (Albuterol/ Ipratropium) 3 ml Q6H PRN HHN Shortness of Breath 01/21/18 21:00 01/27/18 20:59 Clonidine HCl (Catapres Tab) 0.1 mg Q4H PRN ORAL sbp more than 160mmHg 01/21/18 21:00 02/20/18 20:59 Dextrose (Dextrose 50%) 25 ml STAT PRN IV Blood Sugar btwn 60-69 mg/dL 01/21/18 21:00 02/20/18 20:59 Dextrose (Dextrose 50%) 50 ml STAT PRN IV BS less than 60mg/dl 01/21/18 21:00 02/20/18 20:59 Docusate Sodium (Colace) 100 mg THREE TIMES A DAY ORAL 01/22/18 09:00 02/19/18 17:59 01/24/18 09:18 Insulin Aspart (NovoLOG) BEFORE MEALS AND HS SUBQ 01/21/18 21:00 02/19/18 16:29 01/26/18 06:29 Insulin Aspart (NovoLOG) 10 units NOVOTIAC SUBQ 01/23/18 11:50 02/22/18 11:49 01/26/18 06:30 Insulin Detemir (Levemir) 18 units EVERY 12 HOURS SUBQ 01/23/18 09:00 02/19/18 08:59 01/25/18 22:05 Lorazepam (Ativan) 0.5 mg Q4H PRN ORAL For Anxiety 01/21/18 21:00 01/28/18 20:59 Polyethylene Glycol (Miralax) 17 gm BEDTIME ORAL 01/21/18 21:00 02/19/18 20:59 01/23/18 21:15 Sennosides (Senokot) 1 tab DAILY ORAL 01/22/18 09:00 02/19/18 08:59 01/23/18 09:11 Vitamin A/Vitamin D (A & D Oint) 1 applic EVERY 12 HOURS TOPIC 01/21/18 21:00 02/19/18 20:59 01/25/18 22:20 Item Value Date Time Bedside Blood Glucose 189 mg/dl H 01/26/18 0630 Bedside Blood Glucose 233 mg/dl H 01/25/18 2212 Bedside Blood Glucose 249 mg/dl H 01/25/18 1650 Bedside Blood Glucose 254 mg/dl H 01/25/18 1204 Bedside Blood Glucose 124 mg/dl H 01/25/18 0844 FEMI MCKEON January 26, 2018 07:55
[2018-01-26 08:00] VITALS: BP 112/69
[2018-01-26] MEDS: Sennosides 8.6mg ORAL SCH (08:57)
[2018-01-26] MEDS: Docusate 100mg cap ORAL SCH ×3 (08:57→17:25)
[2018-01-26] MEDS: Levemir Flexpen SUBQ SCH ×2 (08:59→20:24)
[2018-01-26] MEDS: Vitamin A&D Oint 2oz Tube TOPIC SCH ×2 (09:03→20:22)
[2018-01-26 12:00] VITALS: BP 115/60
--- NOTE | 2018-01-26 12:23 | Infectious Diseases Prog Note ---
Assessment/Plan Assessment/Plan Acute hypoxic resp failure improved COPD exacerbation, s/p -CXR 01/21: Mild pulmonary vascular congestion may be present. Correlate clinically. Left pleural effusion suspected -CXR: No acute disease Afebrile, no leukocytosis Recent acute hypoxic failure and PNA 11/2015 -sp cx 12/04: E.coli (davila S), P. mirabilis (davila S) Influenza sc : Neg transaminitis improving Chronic Hep C, untreated VL 3.8 m,illions Hep panel : A Imm ; B not immune HIV Neg hx of trach s/p removal COPD Dm2 HTN [facility] resident Plan: - Monitor pt off of AB Rx -12/24 SP Levaquin # 5 /5 -12/10 SP Cefepime #7 -12/06 SP Vanco #3 -Monitor CBC/BMP, temperatures -aspiration precautions Hem fup, re TCP needs treatment of Hep C as outpatient needs Hep B vaccine as outpatient Subjective Allergies: Coded Allergies: Shrimp (Unverified Allergy, Unknown, 12/04/17) Subjective comfortable Objective Vital Signs Last 24 Hour Vital Signs Date Time Temp Pulse Resp B/P (MAP) Pulse Ox O2 Delivery O2 Flow Rate FiO2 01/26/18 12:00 99.1 98 20 115/60 96 99.1 01/26/18 08:03 98 Nasal Cannula 2.0 28 01/26/18 08:03 94 18 Nasal Cannula 2.0 28 01/26/18 08:03 Nasal Cannula 2.0 28 01/26/18 08:00 97.3 99 20 112/69 94 97.3 01/26/18 03:59 96.4 100 20 115/67 98 Nasal Cannula 96.4 01/26/18 03:59 Nasal Cannula 2.0 01/25/18 23:27 Nasal Cannula 2.0 01/25/18 23:27 97.5 95 20 121/86 96 Room Air 97.5 01/25/18 20:16 96 Nasal Cannula 2.0 28 01/25/18 20:16 92 20 Nasal Cannula 2.0 28 01/25/18 20:16 Nasal Cannula 2.0 28 01/25/18 19:18 98.1 91 20 114/71 100 Nasal Cannula 98.1 01/25/18 19:18 Nasal Cannula 2.0 01/25/18 15:55 Nasal Cannula 2.0 01/25/18 15:55 97.7 89 20 114/58 100 97.7 Height (Feet): 5 Height (Inches): 4.00 Weight (Pounds): 145 HEENT: anicteric Respiratory/Chest: no accessory muscle use Cardiovascular: regularly irregular Abdomen: soft, non tender Current Medications Medications (Trade) Dose Ordered Sig/Hansel Route PRN Reason Start Time Stop Time Status Last Admin Dose Admin Albuterol/ Ipratropium (Albuterol/ Ipratropium) 3 ml Q6H PRN HHN Shortness of Breath 01/21/18 21:00 01/27/18 20:59 Clonidine HCl (Catapres Tab) 0.1 mg Q4H PRN ORAL sbp more than 160mmHg 01/21/18 21:00 02/20/18 20:59 Dextrose (Dextrose 50%) 25 ml STAT PRN IV Blood Sugar btwn 60-69 mg/dL 01/21/18 21:00 02/20/18 20:59 Dextrose (Dextrose 50%) 50 ml STAT PRN IV BS less than 60mg/dl 01/21/18 21:00 02/20/18 20:59 Docusate Sodium (Colace) 100 mg THREE TIMES A DAY ORAL 01/26/18 13:00 02/25/18 12:59 Insulin Aspart (NovoLOG) BEFORE MEALS AND HS SUBQ 01/21/18 21:00 02/19/18 16:29 01/26/18 06:29 Insulin Aspart (NovoLOG) 10 units NOVOTIAC SUBQ 01/23/18 11:50 02/22/18 11:49 01/26/18 06:30 Insulin Detemir (Levemir) 18 units EVERY 12 HOURS SUBQ 01/23/18 09:00 02/19/18 08:59 01/26/18 08:59 Lorazepam (Ativan) 0.5 mg Q4H PRN ORAL For Anxiety 01/21/18 21:00 01/28/18 20:59 Polyethylene Glycol (Miralax) 17 gm BEDTIME ORAL 01/21/18 21:00 02/19/18 20:59 01/23/18 21:15 Sennosides (Senokot) 1 tab DAILY ORAL 01/27/18 09:00 02/26/18 08:59 Vitamin A/Vitamin D (A & D Oint) 1 applic EVERY 12 HOURS TOPIC 01/21/18 21:00 02/19/18 20:59 01/26/18 09:03 Steve Griffin MD January 26, 2018 12:23
--- NOTE | 2018-01-26 15:12 | Internal Med Progress Note ---
Subjective Date of Service: January 26, 2018 Physician Name Dwaine Stevenson Attending Physician Tone Fried MD Current Medications Medications (Trade) Dose Ordered Sig/Hansel Route PRN Reason Start Time Stop Time Status Last Admin Dose Admin Albuterol/ Ipratropium (Albuterol/ Ipratropium) 3 ml Q6H PRN HHN Shortness of Breath 01/21/18 21:00 01/27/18 20:59 Clonidine HCl (Catapres Tab) 0.1 mg Q4H PRN ORAL sbp more than 160mmHg 01/21/18 21:00 02/20/18 20:59 Dextrose (Dextrose 50%) 25 ml STAT PRN IV Blood Sugar btwn 60-69 mg/dL 01/21/18 21:00 02/20/18 20:59 Dextrose (Dextrose 50%) 50 ml STAT PRN IV BS less than 60mg/dl 01/21/18 21:00 02/20/18 20:59 Docusate Sodium (Colace) 100 mg THREE TIMES A DAY ORAL 01/26/18 13:00 02/25/18 12:59 01/26/18 13:08 Insulin Aspart (NovoLOG) BEFORE MEALS AND HS SUBQ 01/21/18 21:00 02/19/18 16:29 01/26/18 13:10 Insulin Aspart (NovoLOG) 10 units NOVOTIAC SUBQ 01/23/18 11:50 02/22/18 11:49 01/26/18 13:10 Insulin Detemir (Levemir) 18 units EVERY 12 HOURS SUBQ 01/23/18 09:00 02/19/18 08:59 01/26/18 08:59 Lorazepam (Ativan) 0.5 mg Q4H PRN ORAL For Anxiety 01/21/18 21:00 01/28/18 20:59 Polyethylene Glycol (Miralax) 17 gm BEDTIME ORAL 01/26/18 21:00 02/19/18 20:59 Sennosides (Senokot) 1 tab DAILY ORAL 01/27/18 09:00 02/26/18 08:59 Vitamin A/Vitamin D (A & D Oint) 1 applic EVERY 12 HOURS TOPIC 01/21/18 21:00 02/19/18 20:59 01/26/18 09:03 Allergies: Coded Allergies: Shrimp (Unverified Allergy, Unknown, 12/04/17) ROS Limited/Unobtainable: No Constitutional: Reports: no symptoms HEENT: Reports: no symptoms Cardiovascular: Reports: no symptoms Respiratory: Reports: shortness of breath Gastrointestinal/Abdominal: Reports: no symptoms Genitourinary: Reports: no symptoms Neurologic/Psychiatric: Reports: no symptoms Subjective 67 YO F admitted with respiratory failure. Now acute COPD exacerbation. Cover for Int Milly Fried. Objective Last Vital Signs Date Time Temp Pulse Resp B/P (MAP) Pulse Ox O2 Delivery O2 Flow Rate FiO2 01/26/18 12:00 99.1 98 20 115/60 96 99.1 01/26/18 08:03 Nasal Cannula 2.0 28 Intake and Output 01/25/18 01/26/18 19:00 07:00 Intake Total 960 ml 240 ml Balance 960 ml 240 ml Intake Oral 960 ml 240 ml # Voids 4 12 # Bowel Movements 1 Objective General Appearance: WD/WN, no apparent distress, alert EENT: PERRL/EOMI, normal ENT inspection Neck: non-tender, normal alignment, supple Cardiovascular: tachycardia; normal peripheral pulses,regular rhythm, no gallop /murmur, no JVD Respiratory/Chest: respiratory distress, crackles/rales, rhonchi - bilaterally , expiratory wheezing Abdomen: normal bowel sounds, non tender, soft, no organomegaly, no mass Edema: trace edema 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 (3) HTN (hypertension) Assessment & Plan: Continue norvasc (4) Respiratory distress (5) COPD (chronic obstructive pulmonary disease) Assessment & Plan: Continue duoneb prn. See pulmonary note. (6) Hepatitis C (7) Tachycardia Assessment & Plan: Improved; see cardiology note Status: stable Assessment/Plan Discharge planning: longterm facility when bed available. Dwaine Stevenson MD January 26, 2018 15:12
[2018-01-26 15:54] VITALS: BP 123/55
[2018-01-26 20:00] VITALS: BP 124/74
[2018-01-26] MEDS: Miralax 17gm pkt ORAL SCH ×2 (20:22→21:00)
--- NOTE | 2018-01-26 22:11 | Pulmonology Progress Note ---
Assessment/Plan Problems: (1) Acute and chronic respiratory failure (2) COPD (chronic obstructive pulmonary disease) (3) Hepatitis C Assessment/Plan doing better no new events no new complains respiratory treatment still in search of a new place Subjective Allergies: Coded Allergies: Shrimp (Unverified Allergy, Unknown, 12/04/17) Objective Last 24 Hour Vital Signs Date Time Temp Pulse Resp B/P (MAP) Pulse Ox O2 Delivery O2 Flow Rate FiO2 01/26/18 20:09 Nasal Cannula 2.0 28 01/26/18 20:08 95 18 Nasal Cannula 2.0 28 01/26/18 20:08 98 Nasal Cannula 2.0 28 01/26/18 20:00 97.3 87 18 124/74 97 97.3 01/26/18 20:00 Nasal Cannula 2.0 01/26/18 15:54 98.1 91 20 123/55 95 98.1 01/26/18 12:00 99.1 98 20 115/60 96 99.1 01/26/18 08:03 98 Nasal Cannula 2.0 28 01/26/18 08:03 94 18 Nasal Cannula 2.0 28 01/26/18 08:03 Nasal Cannula 2.0 28 01/26/18 08:00 97.3 99 20 112/69 94 97.3 01/26/18 03:59 96.4 100 20 115/67 98 Nasal Cannula 96.4 01/26/18 03:59 Nasal Cannula 2.0 01/25/18 23:27 Nasal Cannula 2.0 01/25/18 23:27 97.5 95 20 121/86 96 Room Air 97.5 Intake and Output 01/25/18 01/26/18 19:00 07:00 Intake Total 960 ml 240 ml Balance 960 ml 240 ml Intake Oral 960 ml 240 ml # Voids 4 12 # Bowel Movements 1 Objective General Appearance: cachetic HEENT: normocephalic Respiratory/Chest: chest wall non-tender, lungs clear Breasts: no masses Cardiovascular: normal peripheral pulses, normal rate Abdomen: normal bowel sounds, soft, non tender Extremities: no cyanosis, no clubbing 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, no motor/sensory deficits Lymphatic: no neck adenopathy Current Medications Medications (Trade) Dose Ordered Sig/Hansel Route PRN Reason Start Time Stop Time Status Last Admin Dose Admin Albuterol/ Ipratropium (Albuterol/ Ipratropium) 3 ml Q6H PRN HHN Shortness of Breath 01/21/18 21:00 01/27/18 20:59 Clonidine HCl (Catapres Tab) 0.1 mg Q4H PRN ORAL sbp more than 160mmHg 01/21/18 21:00 02/20/18 20:59 Dextrose (Dextrose 50%) 25 ml STAT PRN IV Blood Sugar btwn 60-69 mg/dL 01/21/18 21:00 02/20/18 20:59 Dextrose (Dextrose 50%) 50 ml STAT PRN IV BS less than 60mg/dl 01/21/18 21:00 02/20/18 20:59 Docusate Sodium (Colace) 100 mg THREE TIMES A DAY ORAL 01/26/18 13:00 02/25/18 12:59 01/26/18 17:25 Insulin Aspart (NovoLOG) BEFORE MEALS AND HS SUBQ 01/21/18 21:00 02/19/18 16:29 01/26/18 20:24 Insulin Aspart (NovoLOG) 10 units NOVOTIAC SUBQ 01/23/18 11:50 02/22/18 11:49 01/26/18 13:10 Insulin Detemir (Levemir) 18 units EVERY 12 HOURS SUBQ 01/23/18 09:00 02/19/18 08:59 01/26/18 20:24 Lorazepam (Ativan) 0.5 mg Q4H PRN ORAL For Anxiety 01/21/18 21:00 01/28/18 20:59 Polyethylene Glycol (Miralax) 17 gm BEDTIME ORAL 01/26/18 21:00 02/19/18 20:59 01/26/18 20:22 Sennosides (Senokot) 1 tab DAILY ORAL 01/27/18 09:00 02/26/18 08:59 Vitamin A/Vitamin D (A & D Oint) 1 applic EVERY 12 HOURS TOPIC 01/21/18 21:00 02/19/18 20:59 01/26/18 20:22 Leni Watts MD January 26, 2018 22:11
[2018-01-27] VITALS: BP 133/66
[2018-01-27 04:00] VITALS: BP 111/70
--- NOTE | 2018-01-27 05:43 | General Progress Note ---
Assessment/Plan Assessment/Plan #. Thrombocytopenia, secondary to hepatitis C --> Hep A and C antibody test (+) --> platelet count improving --> Monitor for improvement. Transfuse if platelets <20k --> Gi to follow as outpatient #. Anemia due to underlying chronic disease. Mild at this time. --> Continue to closely monitor. Has been stable. --> Blood transfusion not required unless symptomatic or hgb <7 --> Reviewed anemia workup. Iron 110, TIBC 230, Ferritin 90, B12 821, Folate 6.6 , TSH 1.4 --> reordered ferritin and tibc #. Leukopenia, likely secondary to hepatitis C, currently improved. --> No leukocytosis is noted. The patient has been afebrile. --> Resolved at this time. #. Tachycardia. --> Improved. Refer to cardiology note. #. Acute on hypoxic respiratory failure --> status post tracheostomy, improved. #. Hepatitis C. --> Elevated liver enzymes. Management as an outpatient. --> Appreciate Infectious Disease service evaluation. #. Hypertension. Systolic blood pressure goal less than 140. --> Improved. #. COPD. --> On duoneb prn. DC Planning. Awaiting placement. Subjective Date patient seen: January 26, 2018 Constitutional: Denies: no symptoms, chills, diaphoresis, fever, malaise, weakness, other HEENT: Denies: no symptoms, eye pain, blurred vision, tearing, double vision, ear pain, ear discharge, nose pain, nose congestion, throat pain, throat swelling, mouth pain, mouth swelling, other Cardiovascular: Denies: no symptoms, chest pain, edema, irregular heart rate, lightheadedness, palpitations, syncope, other Respiratory: Denies: no symptoms, cough, orthopnea, shortness of breath, SOB with excertion, SOB at rest, sputum, stridor, wheezing, other Gastrointestinal/Abdominal: Denies: no symptoms, abdomen distended, abdominal pain, black stools, tarry stools, blood in stool, constipated, diarrhea, difficulty swallowing, nausea, poor appetite, poor fluid intake, rectal bleeding , vomiting, other Genitourinary: Denies: no symptoms, burning, discharge, frequency, flank pain, hematuria, incontinence, pain, urgency, other Neurologic/Psychiatric: Denies: no symptoms, anxiety, depressed, emotional problems, headache, numbness, paresthesia, pre-existing deficit, seizure, tingling, tremors, weakness, other Endocrine: Denies: no symptoms, excessive sweating, flushing, intolerance to cold, intolerance to heat, increased hunger, increased thirst, increased urine, unexplained weight gain, unexplained weight loss, other Hematologic/Lymphatic: Denies: no symptoms, anemia, easy bleeding, easy bruising, other Allergies: Coded Allergies: Shrimp (Unverified Allergy, Unknown, 12/04/17) Subjective H/H stable. No medical distress. Pending placement. Objective Last 24 Hour Vital Signs Date Time Temp Pulse Resp B/P (MAP) Pulse Ox O2 Delivery O2 Flow Rate FiO2 01/27/18 04:00 Nasal Cannula 2.0 01/27/18 04:00 98.1 89 19 111/70 94 98.1 01/27/18 00:00 98.1 80 20 133/66 96 98.1 01/27/18 00:00 Nasal Cannula 2.0 01/26/18 20:09 Nasal Cannula 2.0 28 01/26/18 20:08 95 18 Nasal Cannula 2.0 28 01/26/18 20:08 98 Nasal Cannula 2.0 28 01/26/18 20:00 97.3 87 18 124/74 97 97.3 01/26/18 20:00 Nasal Cannula 2.0 01/26/18 15:54 98.1 91 20 123/55 95 98.1 01/26/18 12:00 99.1 98 20 115/60 96 99.1 01/26/18 08:03 98 Nasal Cannula 2.0 28 01/26/18 08:03 94 18 Nasal Cannula 2.0 28 01/26/18 08:03 Nasal Cannula 2.0 28 01/26/18 08:00 97.3 99 20 112/69 94 97.3 Intake and Output 01/26/18 01/27/18 19:00 07:00 Intake Total 360 ml Balance 360 ml Intake Oral 360 ml # Voids 3 Height (Feet): 5 Height (Inches): 4.00 Weight (Pounds): 145 General Appearance: no apparent distress EENT: PERRL/EOMI Neck: normal alignment Cardiovascular: normal rate Respiratory/Chest: chest wall non-tender Abdomen: non tender Extremities: non-tender Edema: 1+ Leg (L), 1+ Leg (R) Edema: mild edema Neurologic: no motor/sensory deficits Skin: warm/dry Anuj Alfaro MD January 27, 2018 05:43
[2018-01-27] MEDS: NovoLOG Insulin Flexpen SUBQ SCH ×7 (06:03→21:00)
--- NOTE | 2018-01-27 06:58 | General Progress Note ---
Assessment/Plan Problem List: (1) Diabetes mellitus out of control ICD Codes: E11.65 - Type 2 diabetes mellitus with hyperglycemia SNOMED: 70155319, 649223003 (2) COPD (chronic obstructive pulmonary disease) ICD Codes: J44.9 - Chronic obstructive pulmonary disease, unspecified SNOMED: 55569517 (3) Acute and chronic respiratory failure ICD Codes: J96.20 - Acute and chronic respiratory failure, unspecified whether with hypoxia or hypercapnia SNOMED: 93980694 Assessment/Plan continue Levemir 18 units bid continue Novolog to 10 units ac tid continue NISS Subjective Allergies: Coded Allergies: Shrimp (Unverified Allergy, Unknown, 12/04/17) All Systems: reviewed and negative except above Subjective events noted - interval notes reviewed Objective Last 24 Hour Vital Signs Date Time Temp Pulse Resp B/P (MAP) Pulse Ox O2 Delivery O2 Flow Rate FiO2 01/27/18 04:00 Nasal Cannula 2.0 01/27/18 04:00 98.1 89 19 111/70 94 98.1 01/27/18 00:00 98.1 80 20 133/66 96 98.1 01/27/18 00:00 Nasal Cannula 2.0 01/26/18 20:09 Nasal Cannula 2.0 28 01/26/18 20:08 95 18 Nasal Cannula 2.0 28 01/26/18 20:08 98 Nasal Cannula 2.0 28 01/26/18 20:00 97.3 87 18 124/74 97 97.3 01/26/18 20:00 Nasal Cannula 2.0 01/26/18 15:54 98.1 91 20 123/55 95 98.1 01/26/18 12:00 99.1 98 20 115/60 96 99.1 01/26/18 08:03 98 Nasal Cannula 2.0 28 01/26/18 08:03 94 18 Nasal Cannula 2.0 28 01/26/18 08:03 Nasal Cannula 2.0 28 01/26/18 08:00 97.3 99 20 112/69 94 97.3 Intake and Output 01/26/18 01/27/18 19:00 07:00 Intake Total 360 ml 100 ml Output Total 350 ml Balance 360 ml -250 ml Intake Oral 360 ml 100 ml Output Urine Total 350 ml # Voids 3 Height (Feet): 5 Height (Inches): 4.00 Weight (Pounds): 145 General Appearance: no apparent distress Neck: normal alignment Cardiovascular: normal rate Respiratory/Chest: lungs clear Abdomen: normal bowel sounds Pelvis: normal external exam Objective Current Medications Medications (Trade) Dose Ordered Sig/Hansel Route PRN Reason Start Time Stop Time Status Last Admin Dose Admin Albuterol/ Ipratropium (Albuterol/ Ipratropium) 3 ml Q6H PRN HHN Shortness of Breath 01/21/18 21:00 01/27/18 20:59 Clonidine HCl (Catapres Tab) 0.1 mg Q4H PRN ORAL sbp more than 160mmHg 01/21/18 21:00 02/20/18 20:59 Dextrose (Dextrose 50%) 25 ml STAT PRN IV Blood Sugar btwn 60-69 mg/dL 01/21/18 21:00 02/20/18 20:59 Dextrose (Dextrose 50%) 50 ml STAT PRN IV BS less than 60mg/dl 01/21/18 21:00 02/20/18 20:59 Docusate Sodium (Colace) 100 mg THREE TIMES A DAY ORAL 01/26/18 13:00 02/25/18 12:59 01/26/18 17:25 Insulin Aspart (NovoLOG) BEFORE MEALS AND HS SUBQ 01/21/18 21:00 02/19/18 16:29 01/27/18 06:03 Insulin Aspart (NovoLOG) 10 units NOVOTIAC SUBQ 01/23/18 11:50 02/22/18 11:49 01/27/18 06:04 Insulin Detemir (Levemir) 18 units EVERY 12 HOURS SUBQ 01/23/18 09:00 02/19/18 08:59 01/26/18 20:24 Lorazepam (Ativan) 0.5 mg Q4H PRN ORAL For Anxiety 01/21/18 21:00 01/28/18 20:59 Polyethylene Glycol (Miralax) 17 gm BEDTIME ORAL 01/26/18 21:00 02/19/18 20:59 Sennosides (Senokot) 1 tab DAILY ORAL 01/27/18 09:00 02/26/18 08:59 Vitamin A/Vitamin D (A & D Oint) 1 applic EVERY 12 HOURS TOPIC 01/21/18 21:00 02/19/18 20:59 01/26/18 20:22 Item Value Date Time Bedside Blood Glucose 112 mg/dl 01/27/18 0625 Bedside Blood Glucose 258 mg/dl H 01/26/18 2100 Bedside Blood Glucose 98 mg/dl 01/26/18 1630 Bedside Blood Glucose 236 mg/dl H 01/26/18 1310 Bedside Blood Glucose 189 mg/dl H 01/26/18 0859 Bedside Blood Glucose 189 mg/dl H 01/26/18 0630 FEMI MCKEON January 27, 2018 06:58
[2018-01-27 07:59] LABS: BASOPHILS % (AUTO) 1.3 % (0.0-2.0); EOSINOPHILS % (AUTO) 0.9 % (0.0-3.0); HEMOGLOBIN 9.8 G/DL (12.0-16.0); LYMPHOCYTES % (AUTO) 40.9 % (20.0-45.0); MEAN CORPUSCULAR VOLUME 87 FL (80-99); MONOCYTES % (AUTO) 9.6 % (1.0-10.0); NEUTROPHILS % (AUTO) 47.3 % (45.0-75.0); PLATELET COUNT 151 K/UL (150-450); RED BLOOD COUNT 3.81 M/UL (4.20-5.40); RED CELL DISTRIBUTION WIDTH 14.5 % (11.6-14.8); WHITE BLOOD COUNT 6.7 K/UL (4.8-10.8)
[2018-01-27 08:00] VITALS: BP 116/70
[2018-01-27] MEDS: Docusate 100mg cap ORAL SCH ×3 (08:10→17:10)
[2018-01-27] MEDS: Sennosides 8.6mg ORAL SCH (08:11)
[2018-01-27] MEDS: Vitamin A&D Oint 2oz Tube TOPIC SCH ×2 (08:12→21:27)
[2018-01-27] MEDS: Levemir Flexpen SUBQ SCH ×2 (08:13→21:00)
[2018-01-27 08:25] LABS: BLOOD UREA NITROGEN 12 mg/dL (7-18); CALCIUM 9.8 MG/DL (8.5-10.1); CHLORIDE 103 MMOL/L (98-107); CREATININE 0.8 MG/DL (0.55-1.30); POTASSIUM 4.6 MMOL/L (3.5-5.1); SODIUM 147 MMOL/L (136-145)
[2018-01-27 08:52] LABS: CARBON DIOXIDE 30 MMOL/L (21-32)
[2018-01-27 12:00] VITALS: BP 120/72
[2018-01-27 12:23] LABS: % IRON SATURATION 12 % (15-50); IRON 28 ug/dL (50-175); TOTAL IRON BINDING CAPACITY 232 ug/dL (250-450)
[2018-01-27 12:31] LABS: FERRITIN 140 NG/ML (8-388)
--- NOTE | 2018-01-27 13:21 | Internal Med Progress Note ---
Subjective Date of Service: January 27, 2018 Physician Name Dwaine Stevenson Attending Physician Tone Fried MD Current Medications Medications (Trade) Dose Ordered Sig/Hansel Route PRN Reason Start Time Stop Time Status Last Admin Dose Admin Albuterol/ Ipratropium (Albuterol/ Ipratropium) 3 ml Q6H PRN HHN Shortness of Breath 01/21/18 21:00 01/27/18 20:59 Clonidine HCl (Catapres Tab) 0.1 mg Q4H PRN ORAL sbp more than 160mmHg 01/21/18 21:00 02/20/18 20:59 Dextrose (Dextrose 50%) 25 ml STAT PRN IV Blood Sugar btwn 60-69 mg/dL 01/21/18 21:00 02/20/18 20:59 Dextrose (Dextrose 50%) 50 ml STAT PRN IV BS less than 60mg/dl 01/21/18 21:00 02/20/18 20:59 Docusate Sodium (Colace) 100 mg THREE TIMES A DAY ORAL 01/26/18 13:00 02/25/18 12:59 01/27/18 08:10 Insulin Aspart (NovoLOG) BEFORE MEALS AND HS SUBQ 01/21/18 21:00 02/19/18 16:29 01/27/18 06:03 Insulin Aspart (NovoLOG) 10 units NOVOTIAC SUBQ 01/23/18 11:50 02/22/18 11:49 01/27/18 06:04 Insulin Detemir (Levemir) 18 units EVERY 12 HOURS SUBQ 01/23/18 09:00 02/19/18 08:59 01/27/18 08:13 Lorazepam (Ativan) 0.5 mg Q4H PRN ORAL For Anxiety 01/21/18 21:00 01/28/18 20:59 Polyethylene Glycol (Miralax) 17 gm BEDTIME ORAL 01/26/18 21:00 02/19/18 20:59 Sennosides (Senokot) 1 tab DAILY ORAL 01/27/18 09:00 02/26/18 08:59 01/27/18 08:11 Vitamin A/Vitamin D (A & D Oint) 1 applic EVERY 12 HOURS TOPIC 01/21/18 21:00 02/19/18 20:59 01/27/18 08:12 Allergies: Coded Allergies: Shrimp (Unverified Allergy, Unknown, 12/04/17) ROS Limited/Unobtainable: No Constitutional: Reports: no symptoms HEENT: Reports: no symptoms Cardiovascular: Reports: no symptoms Respiratory: Reports: shortness of breath Gastrointestinal/Abdominal: Reports: no symptoms Genitourinary: Reports: no symptoms Neurologic/Psychiatric: Reports: no symptoms Subjective 67 YO F admitted with respiratory failure. Now acute COPD exacerbation. Cover for Int Milly Fried. Objective Last Vital Signs Date Time Temp Pulse Resp B/P (MAP) Pulse Ox O2 Delivery O2 Flow Rate FiO2 01/27/18 12:00 97.9 85 20 120/72 99 97.9 01/27/18 07:42 Nasal Cannula 2.0 28 Laboratory Tests Test 01/27/18 05:05 White Blood Count 6.7 K/UL (4.8-10.8) Red Blood Count 3.81 M/UL (4.20-5.40) L Hemoglobin 9.8 G/DL (12.0-16.0) L Hematocrit 33.0 % (37.0-47.0) L Mean Corpuscular Volume 87 FL (80-99) Mean Corpuscular Hemoglobin 25.6 PG (27.0-31.0) L Mean Corpuscular Hemoglobin Concent 29.6 G/DL (32.0-36.0) L Red Cell Distribution Width 14.5 % (11.6-14.8) Platelet Count 151 K/UL (150-450) Mean Platelet Volume 6.9 FL (6.5-10.1) Neutrophils (%) (Auto) 47.3 % (45.0-75.0) Lymphocytes (%) (Auto) 40.9 % (20.0-45.0) Monocytes (%) (Auto) 9.6 % (1.0-10.0) Eosinophils (%) (Auto) 0.9 % (0.0-3.0) Basophils (%) (Auto) 1.3 % (0.0-2.0) Sodium Level 147 MMOL/L (136-145) H Potassium Level 4.6 MMOL/L (3.5-5.1) Chloride Level 103 MMOL/L (98-107) Carbon Dioxide Level 30 MMOL/L (21-32) Blood Urea Nitrogen 12 mg/dL (7-18) Creatinine 0.8 MG/DL (0.55-1.30) Estimat Glomerular Filtration Rate > 60 mL/min (>60) Glucose Level 98 MG/DL (74-106) Calcium Level 9.8 MG/DL (8.5-10.1) Iron Level 28 ug/dL (50-175) L Total Iron Binding Capacity 232 ug/dL (250-450) L Percent Iron Saturation 12 % (15-50) L Unsaturated Iron Binding 204 ug/dL (112-346) Ferritin 140 NG/ML (8-388) Intake and Output 01/26/18 01/27/18 19:00 07:00 Intake Total 360 ml 100 ml Output Total 350 ml Balance 360 ml -250 ml Intake Oral 360 ml 100 ml Output Urine Total 350 ml # Voids 3 Objective General Appearance: WD/WN, no apparent distress, alert EENT: PERRL/EOMI, normal ENT inspection Neck: non-tender, normal alignment, supple Cardiovascular: tachycardia; normal peripheral pulses,regular rhythm, no gallop /murmur, no JVD Respiratory/Chest: respiratory distress, crackles/rales, rhonchi - bilaterally , expiratory wheezing Abdomen: normal bowel sounds, non tender, soft, no organomegaly, no mass Edema: trace edema Neurologic: senior erp consultant II-XII grossly normal, no motor/sensory deficits Skin: normal pigmentation, warm/dry Assessment/Plan Problem List: (1) Elevated liver enzymes Assessment & Plan: Due to hep C-see GI note (2) Diabetes mellitus, type II Assessment & Plan: Continue levemir and novology sliding scale. (3) HTN (hypertension) Assessment & Plan: Continue norvasc (4) Respiratory distress (5) COPD (chronic obstructive pulmonary disease) Assessment & Plan: Continue duoneb prn. See pulmonary note. Off antibiotic per ID (6) Hepatitis C (7) Tachycardia Assessment & Plan: Improved; see cardiology note Status: stable Assessment/Plan Discharge planning: [facility] facility when bed available. Dwaine Stevenson MD January 27, 2018 13:21
--- NOTE | 2018-01-27 13:57 | General Progress Note ---
Assessment/Plan Assessment/Plan #. Thrombocytopenia, secondary to hepatitis, early livre disease --> Hep A and C antibody test (+) --> platelet count improving --> Monitor for improvement. Transfuse if platelets <20k --> Gi to follow as outpatient #. Anemia due to underlying chronic disease. Mild at this time. --> Continue to closely monitor. Has been stable. --> Blood transfusion not required unless symptomatic or hgb <7 --> Reviewed anemia workup. Iron 110, TIBC 230, Ferritin 90, B12 821, Folate 6.6 , TSH 1.4 --> reordered ferritin and tibc #. Leukopenia, likely secondary to hepatitis C, currently improved. --> No leukocytosis is noted. The patient has been afebrile. --> Resolved at this time. #. Tachycardia. --> Improved. Refer to cardiology note. #. Acute on hypoxic respiratory failure --> status post tracheostomy, improved. #. Hepatitis C. --> Elevated liver enzymes. Management as an outpatient. --> Appreciate Infectious Disease service evaluation. #. Hypertension. Systolic blood pressure goal less than 140. --> Improved. #. COPD. --> On duoneb prn. DC Planning. Awaiting placement. Subjective Constitutional: Denies: no symptoms, chills, diaphoresis, fever, malaise, weakness, other HEENT: Denies: no symptoms, eye pain, blurred vision, tearing, double vision, ear pain, ear discharge, nose pain, nose congestion, throat pain, throat swelling, mouth pain, mouth swelling, other Cardiovascular: Denies: no symptoms, chest pain, edema, irregular heart rate, lightheadedness, palpitations, syncope, other Respiratory: Denies: no symptoms, cough, orthopnea, shortness of breath, SOB with excertion, SOB at rest, sputum, stridor, wheezing, other Gastrointestinal/Abdominal: Denies: no symptoms, abdomen distended, abdominal pain, black stools, tarry stools, blood in stool, constipated, diarrhea, difficulty swallowing, nausea, poor appetite, poor fluid intake, rectal bleeding , vomiting, other Genitourinary: Denies: no symptoms, burning, discharge, frequency, flank pain, hematuria, incontinence, pain, urgency, other Neurologic/Psychiatric: Denies: no symptoms, anxiety, depressed, emotional problems, headache, numbness, paresthesia, pre-existing deficit, seizure, tingling, tremors, weakness, other Endocrine: Denies: no symptoms, excessive sweating, flushing, intolerance to cold, intolerance to heat, increased hunger, increased thirst, increased urine, unexplained weight gain, unexplained weight loss, other Hematologic/Lymphatic: Denies: no symptoms, anemia, easy bleeding, easy bruising, other Allergies: Coded Allergies: Shrimp (Unverified Allergy, Unknown, 12/04/17) Subjective H/H stable. No medical distress. Pending placement. Objective Last 24 Hour Vital Signs Date Time Temp Pulse Resp B/P (MAP) Pulse Ox O2 Delivery O2 Flow Rate FiO2 01/27/18 12:00 97.9 85 20 120/72 99 97.9 01/27/18 08:00 97.5 86 20 116/70 96 97.5 01/27/18 07:42 Nasal Cannula 2.0 28 01/27/18 07:42 89 18 Nasal Cannula 2.0 28 01/27/18 07:42 94 Nasal Cannula 2.0 28 01/27/18 04:00 Nasal Cannula 2.0 01/27/18 04:00 98.1 89 19 111/70 94 98.1 01/27/18 00:00 98.1 80 20 133/66 96 98.1 01/27/18 00:00 Nasal Cannula 2.0 01/26/18 20:09 Nasal Cannula 2.0 28 01/26/18 20:08 95 18 Nasal Cannula 2.0 28 01/26/18 20:08 98 Nasal Cannula 2.0 28 01/26/18 20:00 97.3 87 18 124/74 97 97.3 01/26/18 20:00 Nasal Cannula 2.0 01/26/18 15:54 98.1 91 20 123/55 95 98.1 Intake and Output 01/26/18 01/27/18 19:00 07:00 Intake Total 360 ml 100 ml Output Total 350 ml Balance 360 ml -250 ml Intake Oral 360 ml 100 ml Output Urine Total 350 ml # Voids 3 Laboratory Tests 01/27/18 05:05: White Blood Count 6.7, Red Blood Count 3.81L, Hemoglobin 9.8L, Hematocrit 33.0L , Mean Corpuscular Volume 87, Mean Corpuscular Hemoglobin 25.6L, Mean Corpuscular Hemoglobin Concent 29.6L, Red Cell Distribution Width 14.5, Platelet Count 151, Mean Platelet Volume 6.9, Neutrophils (%) (Auto) 47.3, Lymphocytes (%) (Auto) 40.9, Monocytes (%) (Auto) 9.6, Eosinophils (%) (Auto) 0.9, Basophils (%) (Auto) 1.3, Sodium Level 147H, Potassium Level 4.6, Chloride Level 103, Carbon Dioxide Level 30, Blood Urea Nitrogen 12, Creatinine 0.8, Estimat Glomerular Filtration Rate > 60, Glucose Level 98, Calcium Level 9.8, Iron Level 28L, Total Iron Binding Capacity 232L, Percent Iron Saturation 12L, Unsaturated Iron Binding 204, Ferritin 140 Height (Feet): 5 Height (Inches): 4.00 Weight (Pounds): 145 General Appearance: no apparent distress EENT: TMs normal Neck: normal alignment Cardiovascular: regular rhythm Extremities: non-tender Edema: 1+ Leg (L), 1+ Leg (R) Neurologic: alert Skin: warm/dry Anuj Alfaro MD January 27, 2018 13:57
[2018-01-27 15:44] VITALS: BP 114/72
[2018-01-27 20:00] VITALS: BP 111/72
[2018-01-27] MEDS: Miralax 17gm pkt ORAL SCH (21:00)
[2018-01-28] VITALS: BP 114/71
[2018-01-28 04:00] VITALS: BP 110/62
[2018-01-28] MEDS: NovoLOG Insulin Flexpen SUBQ SCH ×7 (06:06→21:33)
--- NOTE | 2018-01-28 07:23 | General Progress Note ---
Assessment/Plan Assessment/Plan #. Thrombocytopenia, secondary to hepatitis, early liver disease, Hep A and C antibody test (+) --> platelet count has improved, baseline is likely >100k --> Gi to follow as outpatient --> if downtrends for unknown cause, may re-evaluate need for bone marrow biopsy #. Anemia due to underlying chronic disease. Mild at this time. --> Continue to closely monitor. Has been stable. --> Blood transfusion not required unless symptomatic or hgb <7 --> Reviewed anemia workup. Iron 110, TIBC 230, Ferritin 90 and 140, B12 821, Folate 6.6, TSH 1.4 #. Leukopenia, likely secondary to hepatitis C, currently improved. --> No leukocytosis is noted. The patient has been afebrile. --> Resolved at this time. #. Tachycardia. --> Improved. Refer to cardiology note. #. Acute on hypoxic respiratory failure --> status post tracheostomy, improved. #. Hepatitis C. --> Elevated liver enzymes. Management as an outpatient. --> Appreciate Infectious Disease service evaluation as well as GI recs #. Hypertension. Systolic blood pressure goal less than 140. --> Improved. #. COPD. --> On duoneb prn. Subjective Constitutional: Denies: no symptoms, chills, diaphoresis, fever, malaise, weakness, other HEENT: Denies: no symptoms, eye pain, blurred vision, tearing, double vision, ear pain, ear discharge, nose pain, nose congestion, throat pain, throat swelling, mouth pain, mouth swelling, other Cardiovascular: Denies: no symptoms, chest pain, edema, irregular heart rate, lightheadedness, palpitations, syncope, other Respiratory: Denies: no symptoms, cough, orthopnea, shortness of breath, SOB with excertion, SOB at rest, sputum, stridor, wheezing, other Gastrointestinal/Abdominal: Denies: no symptoms, abdomen distended, abdominal pain, black stools, tarry stools, blood in stool, constipated, diarrhea, difficulty swallowing, nausea, poor appetite, poor fluid intake, rectal bleeding , vomiting, other Genitourinary: Denies: no symptoms, burning, discharge, frequency, flank pain, hematuria, incontinence, pain, urgency, other Neurologic/Psychiatric: Denies: no symptoms, anxiety, depressed, emotional problems, headache, numbness, paresthesia, pre-existing deficit, seizure, tingling, tremors, weakness, other Endocrine: Denies: no symptoms, excessive sweating, flushing, intolerance to cold, intolerance to heat, increased hunger, increased thirst, increased urine, unexplained weight gain, unexplained weight loss, other Hematologic/Lymphatic: Denies: no symptoms, anemia, easy bleeding, easy bruising, other Allergies: Coded Allergies: Shrimp (Unverified Allergy, Unknown, 12/04/17) Subjective Sleeping earlier this am, no medical distress. Pending placement at the moment, Objective Last 24 Hour Vital Signs Date Time Temp Pulse Resp B/P (MAP) Pulse Ox O2 Delivery O2 Flow Rate FiO2 01/28/18 04:00 97.7 68 20 110/62 96 97.7 01/28/18 04:00 Nasal Cannula 2.0 01/28/18 00:00 97.7 99 19 114/71 95 97.7 01/28/18 00:00 Nasal Cannula 2.0 01/27/18 20:58 95 Nasal Cannula 2.0 28 01/27/18 20:58 Nasal Cannula 2.0 28 01/27/18 20:58 93 18 Nasal Cannula 2.0 28 01/27/18 20:00 97.7 82 18 111/72 97 97.7 01/27/18 20:00 Nasal Cannula 2.0 01/27/18 18:41 97.5 01/27/18 17:42 97.5 01/27/18 15:44 97.5 89 20 114/72 96 97.5 01/27/18 12:00 97.9 85 20 120/72 99 97.9 01/27/18 08:00 97.5 86 20 116/70 96 97.5 01/27/18 07:42 Nasal Cannula 2.0 28 01/27/18 07:42 89 18 Nasal Cannula 2.0 28 01/27/18 07:42 94 Nasal Cannula 2.0 28 Intake and Output 01/27/18 01/28/18 19:00 07:00 Intake Total 480 ml Output Total 750 ml 450 ml Balance -270 ml -450 ml Intake Oral 480 ml Output Urine Total 750 ml 450 ml # Bowel Movements 1 1 Height (Feet): 5 Height (Inches): 4.00 Weight (Pounds): 144 General Appearance: no apparent distress EENT: PERRL/EOMI Neck: supple Cardiovascular: normal rate Respiratory/Chest: lungs clear Extremities: non-tender Edema: 1+ Leg (L), 1+ Leg (R) Edema: mild edema Neurologic: no motor/sensory deficits Skin: warm/dry Anuj Alfaro MD January 28, 2018 07:23
[2018-01-28 08:00] VITALS: BP 116/67
[2018-01-28] MEDS: Levemir Flexpen SUBQ SCH ×2 (09:00→21:30)
[2018-01-28] MEDS: Docusate 100mg cap ORAL SCH ×3 (09:08→18:00)
[2018-01-28] MEDS: Sennosides 8.6mg ORAL SCH ×2 (09:08→09:09)
[2018-01-28] MEDS: Vitamin A&D Oint 2oz Tube TOPIC SCH ×2 (09:09→21:00)
--- NOTE | 2018-01-28 10:52 | Internal Med Progress Note ---
Subjective Date of Service: January 28, 2018 Physician Name Dwaine Stevenson Attending Physician Tone Fried MD Current Medications Medications (Trade) Dose Ordered Sig/Hansel Route PRN Reason Start Time Stop Time Status Last Admin Dose Admin Acetaminophen (Tylenol) 650 mg Q6H PRN ORAL Mild Pain/Temp > 100.5 01/27/18 17:30 02/26/18 17:29 01/27/18 17:42 Clonidine HCl (Catapres Tab) 0.1 mg Q4H PRN ORAL sbp more than 160mmHg 01/21/18 21:00 02/20/18 20:59 Dextrose (Dextrose 50%) 25 ml STAT PRN IV Blood Sugar btwn 60-69 mg/dL 01/21/18 21:00 02/20/18 20:59 Dextrose (Dextrose 50%) 50 ml STAT PRN IV BS less than 60mg/dl 01/21/18 21:00 02/20/18 20:59 01/27/18 20:27 Docusate Sodium (Colace) 100 mg THREE TIMES A DAY ORAL 01/26/18 13:00 02/25/18 12:59 01/28/18 09:08 Insulin Aspart (NovoLOG) BEFORE MEALS AND HS SUBQ 01/21/18 21:00 02/19/18 16:29 01/28/18 06:06 Insulin Aspart (NovoLOG) 10 units NOVOTIAC SUBQ 01/23/18 11:50 02/22/18 11:49 01/28/18 06:06 Insulin Detemir (Levemir) 18 units EVERY 12 HOURS SUBQ 01/23/18 09:00 02/19/18 08:59 01/27/18 08:13 Lorazepam (Ativan) 0.5 mg Q4H PRN ORAL For Anxiety 01/21/18 21:00 01/28/18 20:59 Polyethylene Glycol (Miralax) 17 gm BEDTIME ORAL 01/26/18 21:00 02/19/18 20:59 Sennosides (Senokot) 1 tab DAILY ORAL 01/27/18 09:00 02/26/18 08:59 01/28/18 09:09 Vitamin A/Vitamin D (A & D Oint) 1 applic EVERY 12 HOURS TOPIC 01/21/18 21:00 02/19/18 20:59 01/28/18 09:09 Allergies: Coded Allergies: Shrimp (Unverified Allergy, Unknown, 12/04/17) ROS Limited/Unobtainable: No Constitutional: Reports: no symptoms HEENT: Reports: no symptoms Cardiovascular: Reports: no symptoms Respiratory: Reports: shortness of breath Gastrointestinal/Abdominal: Reports: no symptoms Genitourinary: Reports: no symptoms Neurologic/Psychiatric: Reports: no symptoms Subjective 67 YO F admitted with respiratory failure. Now acute COPD exacerbation. Cover for Int Sujatha-Dr Fried. Objective Last Vital Signs Date Time Temp Pulse Resp B/P (MAP) Pulse Ox O2 Delivery O2 Flow Rate FiO2 01/28/18 08:00 97.8 78 20 116/67 97 Nasal Cannula 2.0 97.8 01/28/18 07:50 28 Intake and Output 01/27/18 01/28/18 19:00 07:00 Intake Total 480 ml Output Total 750 ml 450 ml Balance -270 ml -450 ml Intake Oral 480 ml Output Urine Total 750 ml 450 ml # Bowel Movements 1 1 Objective General Appearance: WD/WN, no apparent distress, alert EENT: PERRL/EOMI, normal ENT inspection Neck: non-tender, normal alignment, supple Cardiovascular: tachycardia; normal peripheral pulses,regular rhythm, no gallop /murmur, no JVD Respiratory/Chest: respiratory distress, crackles/rales, rhonchi - bilaterally , expiratory wheezing Abdomen: normal bowel sounds, non tender, soft, no organomegaly, no mass Edema: trace edema Neurologic: stain remover II-XII grossly normal, no motor/sensory deficits Skin: normal pigmentation, warm/dry Assessment/Plan Problem List: (1) Elevated liver enzymes Assessment & Plan: Due to hep C-see GI note (2) Diabetes mellitus, type II Assessment & Plan: Continue levemir and novology sliding scale. (3) HTN (hypertension) Assessment & Plan: Continue norvasc (4) Respiratory distress (5) COPD (chronic obstructive pulmonary disease) Assessment & Plan: Continue duoneb prn. See pulmonary note. Off antibiotic per ID (6) Hepatitis C (7) Tachycardia Assessment & Plan: Improved; see cardiology note Assessment/Plan Discharge planning: nursing home facility when bed available. Dwaine Stevenson MD January 28, 2018 10:52
--- NOTE | 2018-01-28 11:15 | Infectious Diseases Prog Note ---
Assessment/Plan Assessment/Plan A: Acute hypoxic resp failure improved COPD exacerbation, s/p -CXR 01/21: Mild pulmonary vascular congestion may be present. Correlate clinically. Left pleural effusion suspected -CXR: No acute disease Afebrile, no leukocytosis Recent acute hypoxic failure and PNA 11/2015 -sp cx 12/04: E.coli (davila S), P. mirabilis (davila S) Influenza sc : Neg transaminitis improving Chronic Hep C, untreated VL 3.8 m,illions Hep panel : A Imm ; B not immune HIV Neg hx of trach s/p removal COPD Dm2 HTN [facility] resident Plan: - Monitor pt off of AB Rx -12/24 SP Levaquin # 5 /5 -12/10 SP Cefepime #7 -12/06 SP Vanco #3 -Monitor CBC/BMP, temperatures -aspiration precautions Hem fup, re TCP needs treatment of Hep C as outpatient needs Hep B vaccine as outpatient Subjective Constitutional: Denies: no symptoms, fever, chills, fatigue, anorexia, drenching sweats, other Allergies: Coded Allergies: Shrimp (Unverified Allergy, Unknown, 12/04/17) Subjective comfortable Objective Vital Signs Last 24 Hour Vital Signs Date Time Temp Pulse Resp B/P (MAP) Pulse Ox O2 Delivery O2 Flow Rate FiO2 01/28/18 08:00 97.8 78 20 116/67 97 Nasal Cannula 2.0 97.8 01/28/18 07:50 94 Nasal Cannula 2.0 28 01/28/18 07:50 93 18 Nasal Cannula 2.0 28 01/28/18 07:50 Nasal Cannula 2.0 28 01/28/18 04:00 97.7 68 20 110/62 96 97.7 01/28/18 04:00 Nasal Cannula 2.0 01/28/18 00:00 97.7 99 19 114/71 95 97.7 01/28/18 00:00 Nasal Cannula 2.0 01/27/18 20:58 95 Nasal Cannula 2.0 28 01/27/18 20:58 Nasal Cannula 2.0 28 01/27/18 20:58 93 18 Nasal Cannula 2.0 28 01/27/18 20:00 97.7 82 18 111/72 97 97.7 01/27/18 20:00 Nasal Cannula 2.0 01/27/18 18:41 97.5 01/27/18 17:42 97.5 01/27/18 15:44 97.5 89 20 114/72 96 97.5 01/27/18 12:00 97.9 85 20 120/72 99 97.9 Height (Feet): 5 Height (Inches): 4.00 Weight (Pounds): 144 HEENT: anicteric Respiratory/Chest: no respiratory distress Cardiovascular: regularly irregular Abdomen: non distended Current Medications Medications (Trade) Dose Ordered Sig/Hansel Route PRN Reason Start Time Stop Time Status Last Admin Dose Admin Acetaminophen (Tylenol) 650 mg Q6H PRN ORAL Mild Pain/Temp > 100.5 01/27/18 17:30 02/26/18 17:29 01/27/18 17:42 Clonidine HCl (Catapres Tab) 0.1 mg Q4H PRN ORAL sbp more than 160mmHg 01/21/18 21:00 02/20/18 20:59 Dextrose (Dextrose 50%) 25 ml STAT PRN IV Blood Sugar btwn 60-69 mg/dL 01/21/18 21:00 02/20/18 20:59 Dextrose (Dextrose 50%) 50 ml STAT PRN IV BS less than 60mg/dl 01/21/18 21:00 02/20/18 20:59 01/27/18 20:27 Docusate Sodium (Colace) 100 mg THREE TIMES A DAY ORAL 01/26/18 13:00 02/25/18 12:59 01/28/18 09:08 Insulin Aspart (NovoLOG) BEFORE MEALS AND HS SUBQ 01/21/18 21:00 02/19/18 16:29 01/28/18 06:06 Insulin Aspart (NovoLOG) 10 units NOVOTIAC SUBQ 01/23/18 11:50 02/22/18 11:49 01/28/18 06:06 Insulin Detemir (Levemir) 18 units EVERY 12 HOURS SUBQ 01/23/18 09:00 02/19/18 08:59 01/27/18 08:13 Lorazepam (Ativan) 0.5 mg Q4H PRN ORAL For Anxiety 01/21/18 21:00 01/28/18 20:59 Polyethylene Glycol (Miralax) 17 gm BEDTIME ORAL 01/26/18 21:00 02/19/18 20:59 Sennosides (Senokot) 1 tab DAILY ORAL 01/27/18 09:00 02/26/18 08:59 01/28/18 09:09 Vitamin A/Vitamin D (A & D Oint) 1 applic EVERY 12 HOURS TOPIC 01/21/18 21:00 02/19/18 20:59 01/28/18 09:09 Steve Griffin MD January 28, 2018 11:15
[2018-01-28 12:02] VITALS: BP 131/67
--- NOTE | 2018-01-28 15:01 | General Progress Note ---
Assessment/Plan Problem List: (1) Hyperkalemia ICD Codes: E87.5 - Hyperkalemia SNOMED: 04946477 (2) Acidosis ICD Codes: E87.2 - Acidosis SNOMED: 47225585 (3) CO2 retention ICD Codes: E87.2 - Acidosis SNOMED: 65399151 (4) Respiratory distress ICD Codes: R06.03 - Acute respiratory distress SNOMED: 821998414 (5) COPD (chronic obstructive pulmonary disease) ICD Codes: J44.9 - Chronic obstructive pulmonary disease, unspecified SNOMED: 52368956 (6) Hepatitis C ICD Codes: B19.20 - Unspecified viral hepatitis C without hepatic coma SNOMED: 01687948 (7) Acute and chronic respiratory failure ICD Codes: J96.20 - Acute and chronic respiratory failure, unspecified whether with hypoxia or hypercapnia SNOMED: 57656048 (8) Diabetes mellitus out of control ICD Codes: E11.65 - Type 2 diabetes mellitus with hyperglycemia SNOMED: 05174269, 950729046 (9) Tachycardia ICD Codes: R00.0 - Tachycardia, unspecified SNOMED: 2507817 (10) Hypertension ICD Codes: I10 - Essential (primary) hypertension SNOMED: 03849616 Assessment/Plan 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 Objective Last 24 Hour Vital Signs Date Time Temp Pulse Resp B/P (MAP) Pulse Ox O2 Delivery O2 Flow Rate FiO2 01/28/18 12:02 98.2 95 18 131/67 95 Nasal Cannula 2.0 98.2 01/28/18 08:00 97.8 78 20 116/67 97 Nasal Cannula 2.0 97.8 01/28/18 07:50 94 Nasal Cannula 2.0 28 01/28/18 07:50 93 18 Nasal Cannula 2.0 28 01/28/18 07:50 Nasal Cannula 2.0 28 01/28/18 04:00 97.7 68 20 110/62 96 97.7 01/28/18 04:00 Nasal Cannula 2.0 01/28/18 00:00 97.7 99 19 114/71 95 97.7 01/28/18 00:00 Nasal Cannula 2.0 01/27/18 20:58 95 Nasal Cannula 2.0 28 01/27/18 20:58 Nasal Cannula 2.0 28 01/27/18 20:58 93 18 Nasal Cannula 2.0 28 01/27/18 20:00 97.7 82 18 111/72 97 97.7 01/27/18 20:00 Nasal Cannula 2.0 01/27/18 18:41 97.5 01/27/18 17:42 97.5 01/27/18 15:44 97.5 89 20 114/72 96 97.5 Intake and Output 01/27/18 01/28/18 19:00 07:00 Intake Total 480 ml Output Total 750 ml 450 ml Balance -270 ml -450 ml Intake Oral 480 ml Output Urine Total 750 ml 450 ml # Bowel Movements 1 1 Height (Feet): 5 Height (Inches): 4.00 Weight (Pounds): 144 General Appearance: WD/WN, no apparent distress, alert Neurologic: oriented x 3, responsive, depressed affect Grisel Jay M.D. January 28, 2018 15:01
--- NOTE | 2018-01-28 15:38 | Pulmonology Progress Note ---
Assessment/Plan Problems: (1) Acute and chronic respiratory failure (2) COPD (chronic obstructive pulmonary disease) (3) Hepatitis C Assessment/Plan doing better no new events no new complains respiratory treatment still in search of a new place Subjective Allergies: Coded Allergies: Shrimp (Unverified Allergy, Unknown, 12/04/17) Objective Last 24 Hour Vital Signs Date Time Temp Pulse Resp B/P (MAP) Pulse Ox O2 Delivery O2 Flow Rate FiO2 01/28/18 12:02 98.2 95 18 131/67 95 Nasal Cannula 2.0 98.2 01/28/18 08:00 97.8 78 20 116/67 97 Nasal Cannula 2.0 97.8 01/28/18 07:50 94 Nasal Cannula 2.0 28 01/28/18 07:50 93 18 Nasal Cannula 2.0 28 01/28/18 07:50 Nasal Cannula 2.0 28 01/28/18 04:00 97.7 68 20 110/62 96 97.7 01/28/18 04:00 Nasal Cannula 2.0 01/28/18 00:00 97.7 99 19 114/71 95 97.7 01/28/18 00:00 Nasal Cannula 2.0 01/27/18 20:58 95 Nasal Cannula 2.0 28 01/27/18 20:58 Nasal Cannula 2.0 28 01/27/18 20:58 93 18 Nasal Cannula 2.0 28 01/27/18 20:00 97.7 82 18 111/72 97 97.7 01/27/18 20:00 Nasal Cannula 2.0 01/27/18 18:41 97.5 01/27/18 17:42 97.5 01/27/18 15:44 97.5 89 20 114/72 96 97.5 Intake and Output 01/27/18 01/28/18 19:00 07:00 Intake Total 480 ml Output Total 750 ml 450 ml Balance -270 ml -450 ml Intake Oral 480 ml Output Urine Total 750 ml 450 ml # Bowel Movements 1 1 Objective General Appearance: cachetic HEENT: normocephalic Respiratory/Chest: chest wall non-tender, lungs clear Breasts: no masses Cardiovascular: normal peripheral pulses, normal rate Abdomen: normal bowel sounds, soft, non tender Extremities: no cyanosis, no clubbing Neurologic/Psychiatric: principal cloud architect II-XII grossly normal, no motor/sensory deficits Lymphatic: no neck adenopathy Current Medications Medications (Trade) Dose Ordered Sig/Hansel Route PRN Reason Start Time Stop Time Status Last Admin Dose Admin Acetaminophen (Tylenol) 650 mg Q6H PRN ORAL Mild Pain/Temp > 100.5 01/27/18 17:30 02/26/18 17:29 01/27/18 17:42 Clonidine HCl (Catapres Tab) 0.1 mg Q4H PRN ORAL sbp more than 160mmHg 01/21/18 21:00 02/20/18 20:59 Dextrose (Dextrose 50%) 25 ml STAT PRN IV Blood Sugar btwn 60-69 mg/dL 01/21/18 21:00 02/20/18 20:59 Dextrose (Dextrose 50%) 50 ml STAT PRN IV BS less than 60mg/dl 01/21/18 21:00 02/20/18 20:59 01/27/18 20:27 Docusate Sodium (Colace) 100 mg THREE TIMES A DAY ORAL 01/26/18 13:00 02/25/18 12:59 01/28/18 09:08 Insulin Aspart (NovoLOG) BEFORE MEALS AND HS SUBQ 01/21/18 21:00 02/19/18 16:29 01/28/18 11:36 Insulin Aspart (NovoLOG) 10 units NOVOTIAC SUBQ 01/23/18 11:50 02/22/18 11:49 01/28/18 11:35 Insulin Detemir (Levemir) 18 units EVERY 12 HOURS SUBQ 01/23/18 09:00 02/19/18 08:59 01/27/18 08:13 Lorazepam (Ativan) 0.5 mg Q4H PRN ORAL For Anxiety 01/21/18 21:00 01/28/18 20:59 Polyethylene Glycol (Miralax) 17 gm BEDTIME ORAL 01/26/18 21:00 02/19/18 20:59 Sennosides (Senokot) 1 tab DAILY ORAL 01/27/18 09:00 02/26/18 08:59 01/28/18 09:09 Vitamin A/Vitamin D (A & D Oint) 1 applic EVERY 12 HOURS TOPIC 01/21/18 21:00 02/19/18 20:59 01/28/18 09:09 Leni Watts MD January 28, 2018 15:38
[2018-01-28 16:04] VITALS: BP 117/66
[2018-01-28 20:18] VITALS: BP 119/63
[2018-01-28] MEDS: Miralax 17gm pkt ORAL SCH (21:00)
[2018-01-29] VITALS (7 sets, daily range): BP systolic 104–121; BP diastolic 46–73
[2018-01-29] MEDS: NovoLOG Insulin Flexpen SUBQ SCH ×7 (05:49→21:04)
--- NOTE | 2018-01-29 07:17 | General Progress Note ---
Assessment/Plan Problem List: (1) Diabetes mellitus out of control ICD Codes: E11.65 - Type 2 diabetes mellitus with hyperglycemia SNOMED: 85509811, 650648418 (2) COPD (chronic obstructive pulmonary disease) ICD Codes: J44.9 - Chronic obstructive pulmonary disease, unspecified SNOMED: 76104063 (3) Acute and chronic respiratory failure ICD Codes: J96.20 - Acute and chronic respiratory failure, unspecified whether with hypoxia or hypercapnia SNOMED: 37877059 Assessment/Plan continue Levemir 18 units bid continue Novolog to 10 units ac tid continue NISS Subjective Allergies: Coded Allergies: Shrimp (Unverified Allergy, Unknown, 12/04/17) All Systems: reviewed and negative except above Subjective events noted - interval notes reviewed Objective Last 24 Hour Vital Signs Date Time Temp Pulse Resp B/P (MAP) Pulse Ox O2 Delivery O2 Flow Rate FiO2 01/29/18 05:16 60 01/29/18 04:47 96.9 54 17 109/73 96 96.9 01/29/18 00:33 97.3 73 17 121/64 93 97.3 01/28/18 20:28 89 18 Nasal Cannula 2.0 28 01/28/18 20:28 95 Nasal Cannula 2.0 28 01/28/18 20:28 Nasal Cannula 2.0 28 01/28/18 20:18 96.4 104 18 119/63 92 96.4 01/28/18 16:04 97.9 95 18 117/66 95 Nasal Cannula 2.0 97.9 01/28/18 12:02 98.2 95 18 131/67 95 Nasal Cannula 2.0 98.2 01/28/18 08:00 97.8 78 20 116/67 97 Nasal Cannula 2.0 97.8 01/28/18 07:50 94 Nasal Cannula 2.0 28 01/28/18 07:50 93 18 Nasal Cannula 2.0 28 01/28/18 07:50 Nasal Cannula 2.0 28 Intake and Output 01/28/18 01/29/18 19:00 07:00 Intake Total 480 ml 300 ml Output Total 900 ml Balance -420 ml 300 ml Intake Oral 480 ml 300 ml Output Urine Total 900 ml # Voids 2 Height (Feet): 5 Height (Inches): 4.00 Weight (Pounds): 145 General Appearance: no apparent distress Neck: normal alignment Cardiovascular: normal rate Respiratory/Chest: lungs clear Abdomen: normal bowel sounds Pelvis: normal external exam Edema: no edema noted Arm (L), no edema noted Arm (R), no edema noted Leg (L), no edema noted Leg (R), no edema noted Pedal (L), no edema noted Pedal (R), no edema noted Generalized Objective Current Medications Medications (Trade) Dose Ordered Sig/Hansel Route PRN Reason Start Time Stop Time Status Last Admin Dose Admin Acetaminophen (Tylenol) 650 mg Q6H PRN ORAL Mild Pain/Temp > 100.5 01/27/18 17:30 02/26/18 17:29 01/28/18 23:56 Clonidine HCl (Catapres Tab) 0.1 mg Q4H PRN ORAL sbp more than 160mmHg 01/21/18 21:00 02/20/18 20:59 Dextrose (Dextrose 50%) 25 ml STAT PRN IV Blood Sugar btwn 60-69 mg/dL 01/21/18 21:00 02/20/18 20:59 Dextrose (Dextrose 50%) 50 ml STAT PRN IV BS less than 60mg/dl 01/21/18 21:00 02/20/18 20:59 01/27/18 20:27 Docusate Sodium (Colace) 100 mg THREE TIMES A DAY ORAL 01/26/18 13:00 02/25/18 12:59 01/28/18 09:08 Insulin Aspart (NovoLOG) BEFORE MEALS AND HS SUBQ 01/21/18 21:00 02/19/18 16:29 01/29/18 05:49 Insulin Aspart (NovoLOG) 10 units NOVOTIAC SUBQ 01/23/18 11:50 02/22/18 11:49 01/29/18 05:50 Insulin Detemir (Levemir) 18 units EVERY 12 HOURS SUBQ 01/23/18 09:00 02/19/18 08:59 01/28/18 21:30 Polyethylene Glycol (Miralax) 17 gm BEDTIME ORAL 01/26/18 21:00 02/19/18 20:59 Sennosides (Senokot) 1 tab DAILY ORAL 01/27/18 09:00 02/26/18 08:59 01/28/18 09:09 Vitamin A/Vitamin D (A & D Oint) 1 applic EVERY 12 HOURS TOPIC 01/21/18 21:00 02/19/18 20:59 01/28/18 21:00 Item Value Date Time Bedside Blood Glucose 218 mg/dl H 01/29/18 0550 Bedside Blood Glucose 318 mg/dl H 01/28/18 2133 Bedside Blood Glucose 167 mg/dl H 01/28/18 1712 Bedside Blood Glucose 304 mg/dl H 01/28/18 1136 Bedside Blood Glucose 221 mg/dl H 01/28/18 0900 Bedside Blood Glucose 206 mg/dl H 01/28/18 0630 FEMI MCKEON January 29, 2018 07:17
[2018-01-29 08:05] LABS: BASOPHILS % (AUTO) 1.2 % (0.0-2.0); EOSINOPHILS % (AUTO) 0.8 % (0.0-3.0); HEMATOCRIT 35.1 % (37.0-47.0); MEAN CORPUSCULAR VOLUME 86 FL (80-99); MONOCYTES % (AUTO) 9.5 % (1.0-10.0); NEUTROPHILS % (AUTO) 40.6 % (45.0-75.0); PLATELET COUNT 185 K/UL (150-450); RED BLOOD COUNT 4.09 M/UL (4.20-5.40); RED CELL DISTRIBUTION WIDTH 14.5 % (11.6-14.8); WHITE BLOOD COUNT 9.4 K/UL (4.8-10.8)
[2018-01-29] MEDS: Docusate 100mg cap ORAL SCH ×4 (08:05→17:06)
[2018-01-29] MEDS: Sennosides 8.6mg ORAL SCH ×3 (08:05→08:12)
[2018-01-29] MEDS: Vitamin A&D Oint 2oz Tube TOPIC SCH ×2 (08:06→20:56)
[2018-01-29] MEDS: Levemir Flexpen SUBQ SCH ×2 (08:06→21:07)
[2018-01-29 08:29] LABS: ANION GAP -2 mmol/L (5-15); BLOOD UREA NITROGEN 11 mg/dL (7-18); CALCIUM 9.8 MG/DL (8.5-10.1); CHLORIDE 104 MMOL/L (98-107); CREATININE 0.9 MG/DL (0.55-1.30); POTASSIUM 4.8 MMOL/L (3.5-5.1); SODIUM 145 MMOL/L (136-145)
[2018-01-29 08:30] LABS: CARBON DIOXIDE 43 MMOL/L (21-32)
--- NOTE | 2018-01-29 08:57 | General Progress Note ---
Assessment/Plan Assessment/Plan #. Thrombocytopenia, secondary to hepatitis, early liver disease, Hep A and C antibody test (+), baseline appears to be 100-200k --> platelet count has improved, baseline is likely >100k --> Gi to follow as outpatient --> does not appear to be in DIC #. Anemia due to underlying chronic disease. Mild at this time. --> Continue to closely monitor. Has been stable. --> Blood transfusion not required unless symptomatic or hgb <7 --> Reviewed anemia workup. Iron 110, TIBC 230, Ferritin 90 and 140, B12 821, Folate 6.6, TSH 1.4 #. Leukopenia, likely secondary to hepatitis C, currently improved. --> No leukocytosis is noted. The patient has been afebrile. --> Resolved at this time. #. Tachycardia. --> Improved. Refer to cardiology note. #. Acute on hypoxic respiratory failure --> status post tracheostomy, improved. #. Hepatitis C. --> Elevated liver enzymes. Management as an outpatient. --> Appreciate Infectious Disease service evaluation as well as GI recs #. Hypertension. Systolic blood pressure goal less than 140. --> Improved. #. COPD. --> On duoneb prn. Subjective Constitutional: Denies: no symptoms, chills, diaphoresis, fever, malaise, weakness, other HEENT: Denies: no symptoms, eye pain, blurred vision, tearing, double vision, ear pain, ear discharge, nose pain, nose congestion, throat pain, throat swelling, mouth pain, mouth swelling, other Cardiovascular: Denies: no symptoms, chest pain, edema, irregular heart rate, lightheadedness, palpitations, syncope, other Respiratory: Denies: no symptoms, cough, orthopnea, shortness of breath, SOB with excertion, SOB at rest, sputum, stridor, wheezing, other Gastrointestinal/Abdominal: Denies: no symptoms, abdomen distended, abdominal pain, black stools, tarry stools, blood in stool, constipated, diarrhea, difficulty swallowing, nausea, poor appetite, poor fluid intake, rectal bleeding , vomiting, other Genitourinary: Denies: no symptoms, burning, discharge, frequency, flank pain, hematuria, incontinence, pain, urgency, other Neurologic/Psychiatric: Denies: no symptoms, anxiety, depressed, emotional problems, headache, numbness, paresthesia, pre-existing deficit, seizure, tingling, tremors, weakness, other Endocrine: Denies: no symptoms, excessive sweating, flushing, intolerance to cold, intolerance to heat, increased hunger, increased thirst, increased urine, unexplained weight gain, unexplained weight loss, other Hematologic/Lymphatic: Reports: no symptoms Allergies: Coded Allergies: Shrimp (Unverified Allergy, Unknown, 12/04/17) Subjective on insulin, bs are better controlled Objective Last 24 Hour Vital Signs Date Time Temp Pulse Resp B/P (MAP) Pulse Ox O2 Delivery O2 Flow Rate FiO2 01/29/18 08:12 94 Nasal Cannula 2.0 28 01/29/18 08:12 Nasal Cannula 2.0 28 01/29/18 08:12 78 20 Nasal Cannula 2.0 28 01/29/18 08:00 96.6 92 19 117/61 96.6 01/29/18 05:16 60 01/29/18 04:47 96.9 54 17 109/73 96 96.9 01/29/18 00:33 97.3 73 17 121/64 93 97.3 01/28/18 20:28 89 18 Nasal Cannula 2.0 28 01/28/18 20:28 95 Nasal Cannula 2.0 28 01/28/18 20:28 Nasal Cannula 2.0 28 01/28/18 20:18 96.4 104 18 119/63 92 96.4 01/28/18 16:04 97.9 95 18 117/66 95 Nasal Cannula 2.0 97.9 01/28/18 12:02 98.2 95 18 131/67 95 Nasal Cannula 2.0 98.2 Intake and Output 01/28/18 01/29/18 19:00 07:00 Intake Total 480 ml 300 ml Output Total 900 ml Balance -420 ml 300 ml Intake Oral 480 ml 300 ml Output Urine Total 900 ml # Voids 2 Laboratory Tests 01/29/18 05:20: White Blood Count 9.4, Red Blood Count 4.09L, Hemoglobin 10.0L, Hematocrit 35.1L , Mean Corpuscular Volume 86, Mean Corpuscular Hemoglobin 24.4L, Mean Corpuscular Hemoglobin Concent 28.4L, Red Cell Distribution Width 14.5, Platelet Count 185, Mean Platelet Volume 6.8, Neutrophils (%) (Auto) 40.6L, Lymphocytes (%) (Auto) 48.0H, Monocytes (%) (Auto) 9.5, Eosinophils (%) (Auto) 0.8, Basophils (%) (Auto) 1.2, Sodium Level 145, Potassium Level 4.8, Chloride Level 104, Carbon Dioxide Level 43*H, Anion Gap -2L, Blood Urea Nitrogen 11, Creatinine 0.9, Estimat Glomerular Filtration Rate > 60, Glucose Level 212H, Calcium Level 9.8 Height (Feet): 5 Height (Inches): 4.00 Weight (Pounds): 145 General Appearance: no apparent distress EENT: normal ENT inspection Neck: supple Cardiovascular: normal rate Respiratory/Chest: lungs clear Abdomen: no organomegaly Extremities: non-tender Edema: 1+ Leg (L); no edema noted Leg (R) Edema: mild edema Neurologic: alert Skin: warm/dry Anuj lAfaro MD January 29, 2018 08:57
--- NOTE | 2018-01-29 11:05 | Infectious Diseases Prog Note ---
Assessment/Plan Assessment/Plan A: Acute hypoxic resp failure improved COPD exacerbation, s/p -CXR 01/21: Mild pulmonary vascular congestion may be present. Correlate clinically. Left pleural effusion suspected -CXR: No acute disease Afebrile, no leukocytosis Recent acute hypoxic failure and PNA 11/2015 -sp cx 12/04: E.coli (davila S), P. mirabilis (davila S) Influenza sc : Neg transaminitis , SP Chronic Hep C, untreated VL 3.8 m,illions Hep panel : A Imm ; B not immune HIV Neg hx of trach s/p removal COPD Dm2 HTN [facility] resident Plan: - Monitor pt off of AB Rx -12/24 SP Levaquin # 5 /5 -12/10 SP Cefepime #7 -12/06 SP Vanco #3 -Monitor CBC/BMP, temperatures -aspiration precautions Hem fup, re TCP needs treatment of Hep C as outpatient needs Hep B vaccine as outpatient Subjective Constitutional: Denies: no symptoms, fever, chills, fatigue, anorexia, drenching sweats, other Allergies: Coded Allergies: Shrimp (Unverified Allergy, Unknown, 12/04/17) Subjective comfortable Objective Vital Signs Last 24 Hour Vital Signs Date Time Temp Pulse Resp B/P (MAP) Pulse Ox O2 Delivery O2 Flow Rate FiO2 01/29/18 08:12 94 Nasal Cannula 2.0 28 01/29/18 08:12 Nasal Cannula 2.0 28 01/29/18 08:12 78 20 Nasal Cannula 2.0 28 01/29/18 08:00 96.6 92 19 117/61 96.6 01/29/18 05:16 60 01/29/18 04:47 96.9 54 17 109/73 96 96.9 01/29/18 00:33 97.3 73 17 121/64 93 97.3 01/28/18 20:28 89 18 Nasal Cannula 2.0 28 01/28/18 20:28 95 Nasal Cannula 2.0 28 01/28/18 20:28 Nasal Cannula 2.0 28 01/28/18 20:18 96.4 104 18 119/63 92 96.4 01/28/18 16:04 97.9 95 18 117/66 95 Nasal Cannula 2.0 97.9 01/28/18 12:02 98.2 95 18 131/67 95 Nasal Cannula 2.0 98.2 Height (Feet): 5 Height (Inches): 4.00 Weight (Pounds): 145 HEENT: anicteric Respiratory/Chest: normal breath sounds Cardiovascular: regular rhythm Abdomen: non distended Laboratory Tests Test 01/29/18 05:20 White Blood Count 9.4 K/UL (4.8-10.8) Red Blood Count 4.09 M/UL (4.20-5.40) L Hemoglobin 10.0 G/DL (12.0-16.0) L Hematocrit 35.1 % (37.0-47.0) L Mean Corpuscular Volume 86 FL (80-99) Mean Corpuscular Hemoglobin 24.4 PG (27.0-31.0) L Mean Corpuscular Hemoglobin Concent 28.4 G/DL (32.0-36.0) L Red Cell Distribution Width 14.5 % (11.6-14.8) Platelet Count 185 K/UL (150-450) Mean Platelet Volume 6.8 FL (6.5-10.1) Neutrophils (%) (Auto) 40.6 % (45.0-75.0) L Lymphocytes (%) (Auto) 48.0 % (20.0-45.0) H Monocytes (%) (Auto) 9.5 % (1.0-10.0) Eosinophils (%) (Auto) 0.8 % (0.0-3.0) Basophils (%) (Auto) 1.2 % (0.0-2.0) Sodium Level 145 MMOL/L (136-145) Potassium Level 4.8 MMOL/L (3.5-5.1) Chloride Level 104 MMOL/L (98-107) Carbon Dioxide Level 43 MMOL/L (21-32) *H Anion Gap -2 mmol/L (5-15) L Blood Urea Nitrogen 11 mg/dL (7-18) Creatinine 0.9 MG/DL (0.55-1.30) Estimat Glomerular Filtration Rate > 60 mL/min (>60) Glucose Level 212 MG/DL (74-106) H Calcium Level 9.8 MG/DL (8.5-10.1) Current Medications Medications (Trade) Dose Ordered Sig/Hansel Route PRN Reason Start Time Stop Time Status Last Admin Dose Admin Acetaminophen (Tylenol) 650 mg Q6H PRN ORAL Mild Pain/Temp > 100.5 01/27/18 17:30 02/26/18 17:29 01/28/18 23:56 Clonidine HCl (Catapres Tab) 0.1 mg Q4H PRN ORAL sbp more than 160mmHg 01/21/18 21:00 02/20/18 20:59 Dextrose (Dextrose 50%) 25 ml STAT PRN IV Blood Sugar btwn 60-69 mg/dL 01/21/18 21:00 02/20/18 20:59 Dextrose (Dextrose 50%) 50 ml STAT PRN IV BS less than 60mg/dl 01/21/18 21:00 02/20/18 20:59 01/27/18 20:27 Docusate Sodium (Colace) 100 mg THREE TIMES A DAY ORAL 01/26/18 13:00 02/25/18 12:59 01/28/18 09:08 Insulin Aspart (NovoLOG) BEFORE MEALS AND HS SUBQ 01/21/18 21:00 02/19/18 16:29 01/29/18 05:49 Insulin Aspart (NovoLOG) 10 units NOVOTIAC SUBQ 01/23/18 11:50 02/22/18 11:49 01/29/18 05:50 Insulin Detemir (Levemir) 18 units EVERY 12 HOURS SUBQ 01/23/18 09:00 02/19/18 08:59 01/29/18 08:06 Polyethylene Glycol (Miralax) 17 gm BEDTIME ORAL 01/26/18 21:00 02/19/18 20:59 Sennosides (Senokot) 1 tab DAILY ORAL 01/27/18 09:00 02/26/18 08:59 01/28/18 09:09 Vitamin A/Vitamin D (A & D Oint) 1 applic EVERY 12 HOURS TOPIC 01/21/18 21:00 02/19/18 20:59 01/29/18 08:06 Steve Griffin MD January 29, 2018 11:05
--- NOTE | 2018-01-29 14:02 | Pulmonology Progress Note ---
Assessment/Plan Problems: (1) Acute and chronic respiratory failure (2) COPD (chronic obstructive pulmonary disease) (3) Hepatitis C Assessment/Plan doing better no new events no new complains respiratory treatment still in search of a new place Subjective ROS Limited/Unobtainable: No Constitutional: Reports: no symptoms HEENT: Repors: no symptoms Respiratory: Reports: no symptoms Allergies: Coded Allergies: Shrimp (Unverified Allergy, Unknown, 12/04/17) Objective Last 24 Hour Vital Signs Date Time Temp Pulse Resp B/P (MAP) Pulse Ox O2 Delivery O2 Flow Rate FiO2 01/29/18 12:07 97.9 94 19 112/72 97.9 01/29/18 08:12 94 Nasal Cannula 2.0 28 01/29/18 08:12 Nasal Cannula 2.0 28 01/29/18 08:12 78 20 Nasal Cannula 2.0 28 01/29/18 08:00 96.6 92 19 117/61 96.6 01/29/18 05:16 60 01/29/18 04:47 96.9 54 17 109/73 96 96.9 01/29/18 00:33 97.3 73 17 121/64 93 97.3 01/28/18 20:28 89 18 Nasal Cannula 2.0 28 01/28/18 20:28 95 Nasal Cannula 2.0 28 01/28/18 20:28 Nasal Cannula 2.0 28 01/28/18 20:18 96.4 104 18 119/63 92 96.4 01/28/18 16:04 97.9 95 18 117/66 95 Nasal Cannula 2.0 97.9 Intake and Output 01/28/18 01/29/18 19:00 07:00 Intake Total 480 ml 300 ml Output Total 900 ml Balance -420 ml 300 ml Intake Oral 480 ml 300 ml Output Urine Total 900 ml # Voids 2 Objective General Appearance: cachetic HEENT: normocephalic Respiratory/Chest: chest wall non-tender, lungs clear Breasts: no masses Cardiovascular: normal peripheral pulses, normal rate Abdomen: normal bowel sounds, soft, non tender Extremities: no cyanosis, no clubbing Neurologic/Psychiatric: 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 II-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 grossly normal, no motor/sensory deficits Lymphatic: no neck adenopathy Laboratory Tests 01/29/18 05:20: White Blood Count 9.4, Red Blood Count 4.09L, Hemoglobin 10.0L, Hematocrit 35.1L , Mean Corpuscular Volume 86, Mean Corpuscular Hemoglobin 24.4L, Mean Corpuscular Hemoglobin Concent 28.4L, Red Cell Distribution Width 14.5, Platelet Count 185, Mean Platelet Volume 6.8, Neutrophils (%) (Auto) 40.6L, Lymphocytes (%) (Auto) 48.0H, Monocytes (%) (Auto) 9.5, Eosinophils (%) (Auto) 0.8, Basophils (%) (Auto) 1.2, Sodium Level 145, Potassium Level 4.8, Chloride Level 104, Carbon Dioxide Level 43*H, Anion Gap -2L, Blood Urea Nitrogen 11, Creatinine 0.9, Estimat Glomerular Filtration Rate > 60, Glucose Level 212H, Calcium Level 9.8 Current Medications Medications (Trade) Dose Ordered Sig/Hansel Route PRN Reason Start Time Stop Time Status Last Admin Dose Admin Acetaminophen (Tylenol) 650 mg Q6H PRN ORAL Mild Pain/Temp > 100.5 01/27/18 17:30 02/26/18 17:29 01/28/18 23:56 Clonidine HCl (Catapres Tab) 0.1 mg Q4H PRN ORAL sbp more than 160mmHg 01/21/18 21:00 02/20/18 20:59 Dextrose (Dextrose 50%) 25 ml STAT PRN IV Blood Sugar btwn 60-69 mg/dL 01/21/18 21:00 02/20/18 20:59 Dextrose (Dextrose 50%) 50 ml STAT PRN IV BS less than 60mg/dl 01/21/18 21:00 02/20/18 20:59 01/27/18 20:27 Docusate Sodium (Colace) 100 mg THREE TIMES A DAY ORAL 01/26/18 13:00 02/25/18 12:59 01/28/18 09:08 Insulin Aspart (NovoLOG) BEFORE MEALS AND HS SUBQ 01/21/18 21:00 02/19/18 16:29 01/29/18 11:44 Insulin Aspart (NovoLOG) 10 units NOVOTIAC SUBQ 01/23/18 11:50 02/22/18 11:49 01/29/18 11:45 Insulin Detemir (Levemir) 18 units EVERY 12 HOURS SUBQ 01/23/18 09:00 02/19/18 08:59 01/29/18 08:06 Polyethylene Glycol (Miralax) 17 gm BEDTIME ORAL 01/26/18 21:00 02/19/18 20:59 Sennosides (Senokot) 1 tab DAILY ORAL 01/27/18 09:00 02/26/18 08:59 01/28/18 09:09 Vitamin A/Vitamin D (A & D Oint) 1 applic EVERY 12 HOURS TOPIC 01/21/18 21:00 02/19/18 20:59 01/29/18 08:06 eLni Watts MD January 29, 2018 14:02
--- NOTE | 2018-01-29 14:15 | General Progress Note ---
Assessment/Plan Problem List: (1) Hyperkalemia ICD Codes: E87.5 - Hyperkalemia SNOMED: 60304963 (2) Acidosis ICD Codes: E87.2 - Acidosis SNOMED: 20665077 (3) CO2 retention ICD Codes: E87.2 - Acidosis SNOMED: 39136980 (4) Respiratory distress ICD Codes: R06.03 - Acute respiratory distress SNOMED: 418200346 (5) COPD (chronic obstructive pulmonary disease) ICD Codes: J44.9 - Chronic obstructive pulmonary disease, unspecified SNOMED: 16851985 (6) Hepatitis C ICD Codes: B19.20 - Unspecified viral hepatitis C without hepatic coma SNOMED: 48030330 (7) Acute and chronic respiratory failure ICD Codes: J96.20 - Acute and chronic respiratory failure, unspecified whether with hypoxia or hypercapnia SNOMED: 05734861 (8) Diabetes mellitus out of control ICD Codes: E11.65 - Type 2 diabetes mellitus with hyperglycemia SNOMED: 64543834, 870681749 (9) Tachycardia ICD Codes: R00.0 - Tachycardia, unspecified SNOMED: 1318179 (10) Hypertension ICD Codes: I10 - Essential (primary) hypertension SNOMED: 99518327 Assessment/Plan [place] [facility] [place] Subjective Date patient seen: January 29, 2018 Neurologic/Psychiatric: Reports: anxiety, depressed, emotional problems Allergies: Coded Allergies: Shrimp (Unverified Allergy, Unknown, 12/04/17) Subjective e pt was somewhat confused. Objective Last 24 Hour Vital Signs Date Time Temp Pulse Resp B/P (MAP) Pulse Ox O2 Delivery O2 Flow Rate FiO2 01/29/18 12:07 97.9 94 19 112/72 97.9 01/29/18 08:12 94 Nasal Cannula 2.0 28 01/29/18 08:12 Nasal Cannula 2.0 28 01/29/18 08:12 78 20 Nasal Cannula 2.0 28 01/29/18 08:00 96.6 92 19 117/61 96.6 01/29/18 05:16 60 01/29/18 04:47 96.9 54 17 109/73 96 96.9 01/29/18 00:33 97.3 73 17 121/64 93 97.3 01/28/18 20:28 89 18 Nasal Cannula 2.0 28 01/28/18 20:28 95 Nasal Cannula 2.0 28 01/28/18 20:28 Nasal Cannula 2.0 28 01/28/18 20:18 96.4 104 18 119/63 92 96.4 01/28/18 16:04 97.9 95 18 117/66 95 Nasal Cannula 2.0 97.9 Intake and Output 01/28/18 01/29/18 19:00 07:00 Intake Total 480 ml 300 ml Output Total 900 ml Balance -420 ml 300 ml Intake Oral 480 ml 300 ml Output Urine Total 900 ml # Voids 2 Laboratory Tests 01/29/18 05:20: White Blood Count 9.4, Red Blood Count 4.09L, Hemoglobin 10.0L, Hematocrit 35.1L , Mean Corpuscular Volume 86, Mean Corpuscular Hemoglobin 24.4L, Mean Corpuscular Hemoglobin Concent 28.4L, Red Cell Distribution Width 14.5, Platelet Count 185, Mean Platelet Volume 6.8, Neutrophils (%) (Auto) 40.6L, Lymphocytes (%) (Auto) 48.0H, Monocytes (%) (Auto) 9.5, Eosinophils (%) (Auto) 0.8, Basophils (%) (Auto) 1.2, Sodium Level 145, Potassium Level 4.8, Chloride Level 104, Carbon Dioxide Level 43*H, Anion Gap -2L, Blood Urea Nitrogen 11, Creatinine 0.9, Estimat Glomerular Filtration Rate > 60, Glucose Level 212H, Calcium Level 9.8 Height (Feet): 5 Height (Inches): 4.00 Weight (Pounds): 145 Grisel Jay M.D. January 29, 2018 14:15
[2018-01-29] MEDS: Miralax 17gm pkt ORAL SCH (20:55)
--- NOTE | 2018-01-29 22:53 | Internal Med Progress Note ---
Subjective Physician Name Tone Fried Attending Physician Tone Fried MD Current Medications Medications (Trade) Dose Ordered Sig/Hansel Route PRN Reason Start Time Stop Time Status Last Admin Dose Admin Acetaminophen (Tylenol) 650 mg Q6H PRN ORAL Mild Pain/Temp > 100.5 01/27/18 17:30 02/26/18 17:29 01/28/18 23:56 Clonidine HCl (Catapres Tab) 0.1 mg Q4H PRN ORAL sbp more than 160mmHg 01/21/18 21:00 02/20/18 20:59 Dextrose (Dextrose 50%) 25 ml STAT PRN IV Blood Sugar btwn 60-69 mg/dL 01/21/18 21:00 02/20/18 20:59 Dextrose (Dextrose 50%) 50 ml STAT PRN IV BS less than 60mg/dl 01/21/18 21:00 02/20/18 20:59 01/27/18 20:27 Docusate Sodium (Colace) 100 mg THREE TIMES A DAY ORAL 01/26/18 13:00 02/25/18 12:59 01/28/18 09:08 Insulin Aspart (NovoLOG) BEFORE MEALS AND HS SUBQ 01/21/18 21:00 02/19/18 16:29 01/29/18 21:04 Insulin Aspart (NovoLOG) 10 units NOVOTIAC SUBQ 01/23/18 11:50 02/22/18 11:49 01/29/18 11:45 Insulin Detemir (Levemir) 18 units EVERY 12 HOURS SUBQ 01/23/18 09:00 02/19/18 08:59 01/29/18 21:07 Polyethylene Glycol (Miralax) 17 gm BEDTIME ORAL 01/26/18 21:00 02/19/18 20:59 Sennosides (Senokot) 1 tab DAILY ORAL 01/27/18 09:00 02/26/18 08:59 01/28/18 09:09 Vitamin A/Vitamin D (A & D Oint) 1 applic EVERY 12 HOURS TOPIC 01/21/18 21:00 02/19/18 20:59 01/29/18 20:56 Allergies: Coded Allergies: Shrimp (Unverified Allergy, Unknown, 12/04/17) Subjective awake, alert, responsive, NAD Objective Last Vital Signs Date Time Temp Pulse Resp B/P (MAP) Pulse Ox O2 Delivery O2 Flow Rate FiO2 01/29/18 19:27 98.1 110 20 109/46 96 Room Air 98.1 01/29/18 08:12 2.0 28 Laboratory Tests Test 01/29/18 05:20 White Blood Count 9.4 K/UL (4.8-10.8) Red Blood Count 4.09 M/UL (4.20-5.40) L Hemoglobin 10.0 G/DL (12.0-16.0) L Hematocrit 35.1 % (37.0-47.0) L Mean Corpuscular Volume 86 FL (80-99) Mean Corpuscular Hemoglobin 24.4 PG (27.0-31.0) L Mean Corpuscular Hemoglobin Concent 28.4 G/DL (32.0-36.0) L Red Cell Distribution Width 14.5 % (11.6-14.8) Platelet Count 185 K/UL (150-450) Mean Platelet Volume 6.8 FL (6.5-10.1) Neutrophils (%) (Auto) 40.6 % (45.0-75.0) L Lymphocytes (%) (Auto) 48.0 % (20.0-45.0) H Monocytes (%) (Auto) 9.5 % (1.0-10.0) Eosinophils (%) (Auto) 0.8 % (0.0-3.0) Basophils (%) (Auto) 1.2 % (0.0-2.0) Sodium Level 145 MMOL/L (136-145) Potassium Level 4.8 MMOL/L (3.5-5.1) Chloride Level 104 MMOL/L (98-107) Carbon Dioxide Level 43 MMOL/L (21-32) *H Anion Gap -2 mmol/L (5-15) L Blood Urea Nitrogen 11 mg/dL (7-18) Creatinine 0.9 MG/DL (0.55-1.30) Estimat Glomerular Filtration Rate > 60 mL/min (>60) Glucose Level 212 MG/DL (74-106) H Calcium Level 9.8 MG/DL (8.5-10.1) Intake and Output 01/28/18 01/29/18 19:00 07:00 Intake Total 480 ml 300 ml Output Total 900 ml Balance -420 ml 300 ml Intake Oral 480 ml 300 ml Output Urine Total 900 ml # Voids 2 Objective General: No acute distress, awake and alert HEENT: NCAT, sclera anicteric, PERRL, EOMI. Neck: Supple, no significant jugular venous distention, Old Trach scar. Lungs: Fair inspiratory effort, decrease air at bases, no Wheeze or Rales. Heart: Regular rate and rhythm, normal S1/S2, no murmur Abdomen: soft, nontender, nondistended. Normoactive bowel sounds. / Rectal: Refused and deferred. Extremities: No Cyanosis , clubbing or edema. Muscle atrophy LE's Neuro: A&O x 3, Able to move all extremities Skin: warm, no rashes Assessment/Plan Assessment/Plan Acute hypoxic respiratory failure Acute COPD exacerbation- transaminitis improving Hx of Hep C hx of trach s/p removal DM Type 2 HTN Plan: AbX: monitor off O2 Via NC Neb Tx F/U with Dr. Watts recommendation DC Planning , waiting for placement Tone Fried MD January 29, 2018 22:53
[2018-01-30 04:05] VITALS: BP 105/61
[2018-01-30] MEDS: NovoLOG Insulin Flexpen SUBQ SCH ×7 (06:34→20:51)
--- NOTE | 2018-01-30 07:05 | General Progress Note ---
Assessment/Plan Problem List: (1) Diabetes mellitus out of control ICD Codes: E11.65 - Type 2 diabetes mellitus with hyperglycemia SNOMED: 88405294, 317585610 (2) COPD (chronic obstructive pulmonary disease) ICD Codes: J44.9 - Chronic obstructive pulmonary disease, unspecified SNOMED: 21292429 (3) Acute and chronic respiratory failure ICD Codes: J96.20 - Acute and chronic respiratory failure, unspecified whether with hypoxia or hypercapnia SNOMED: 77586896 Assessment/Plan continue Levemir 18 units bid continue Novolog to 10 units ac tid continue NISS Subjective Allergies: Coded Allergies: Shrimp (Unverified Allergy, Unknown, 12/04/17) All Systems: reviewed and negative except above Subjective events noted - interval notes reviewed Objective Last 24 Hour Vital Signs Date Time Temp Pulse Resp B/P (MAP) Pulse Ox O2 Delivery O2 Flow Rate FiO2 01/30/18 04:05 97.5 86 20 105/61 100 Nasal Cannula 97.5 01/29/18 23:43 98.1 111 20 111/64 98 Nasal Cannula 98.1 01/29/18 19:30 90 18 Nasal Cannula 2.0 28 01/29/18 19:30 Nasal Cannula 2.0 28 01/29/18 19:30 95 Nasal Cannula 2.0 28 01/29/18 19:27 98.1 110 20 109/46 96 Room Air 98.1 01/29/18 15:37 96.1 83 18 104/55 98 96.1 01/29/18 12:07 97.9 94 19 112/72 99 97.9 01/29/18 08:12 94 Nasal Cannula 2.0 28 01/29/18 08:12 Nasal Cannula 2.0 28 01/29/18 08:12 78 20 Nasal Cannula 2.0 28 01/29/18 08:00 96.6 92 19 117/61 100 96.6 Intake and Output 01/29/18 01/30/18 19:00 07:00 Intake Total 540 ml Output Total 500 ml 900 ml Balance 40 ml -900 ml Intake Oral 540 ml Output Urine Total 500 ml 900 ml # Bowel Movements 1 Height (Feet): 5 Height (Inches): 4.00 Weight (Pounds): 146 General Appearance: no apparent distress Neck: normal alignment Cardiovascular: normal rate Respiratory/Chest: decreased breath sounds Abdomen: normal bowel sounds Pelvis: normal external exam Objective Current Medications Medications (Trade) Dose Ordered Sig/Hansel Route PRN Reason Start Time Stop Time Status Last Admin Dose Admin Acetaminophen (Tylenol) 650 mg Q6H PRN ORAL Mild Pain/Temp > 100.5 01/27/18 17:30 02/26/18 17:29 01/28/18 23:56 Clonidine HCl (Catapres Tab) 0.1 mg Q4H PRN ORAL sbp more than 160mmHg 01/21/18 21:00 02/20/18 20:59 Dextrose (Dextrose 50%) 25 ml STAT PRN IV Blood Sugar btwn 60-69 mg/dL 01/21/18 21:00 02/20/18 20:59 Dextrose (Dextrose 50%) 50 ml STAT PRN IV BS less than 60mg/dl 01/21/18 21:00 02/20/18 20:59 01/27/18 20:27 Docusate Sodium (Colace) 100 mg THREE TIMES A DAY ORAL 01/26/18 13:00 02/25/18 12:59 01/28/18 09:08 Insulin Aspart (NovoLOG) BEFORE MEALS AND HS SUBQ 01/21/18 21:00 02/19/18 16:29 01/30/18 06:34 Insulin Aspart (NovoLOG) 10 units NOVOTIAC SUBQ 01/23/18 11:50 02/22/18 11:49 01/30/18 06:34 Insulin Detemir (Levemir) 18 units EVERY 12 HOURS SUBQ 01/23/18 09:00 02/19/18 08:59 01/29/18 21:07 Polyethylene Glycol (Miralax) 17 gm BEDTIME ORAL 01/26/18 21:00 02/19/18 20:59 Sennosides (Senokot) 1 tab DAILY ORAL 01/27/18 09:00 02/26/18 08:59 01/28/18 09:09 Vitamin A/Vitamin D (A & D Oint) 1 applic EVERY 12 HOURS TOPIC 01/21/18 21:00 02/19/18 20:59 01/29/18 20:56 Item Value Date Time Bedside Blood Glucose 162 mg/dl H 01/30/18 0634 Bedside Blood Glucose 375 mg/dl H 01/29/18 2207 Bedside Blood Glucose 163 mg/dl H 01/29/18 1643 Bedside Blood Glucose 298 mg/dl H 01/29/18 1146 Bedside Blood Glucose 332 mg/dl H 01/29/18 0806 Bedside Blood Glucose 218 mg/dl H 01/29/18 0550 FEMI MCKEON January 30, 2018 07:05
--- NOTE | 2018-01-30 07:40 | General Progress Note ---
Assessment/Plan Assessment/Plan #. Thrombocytopenia, secondary to hepatitis, early liver disease, Hep A ++, C ++ , baseline appears to be 100-200k --> platelet count has improved, baseline >100k --> Gi to follow as outpatient --> does not appear to be in DIC #. Anemia due to underlying chronic disease. Mild at this time. --> Continue to closely monitor. Has been stable. --> Blood transfusion not required unless symptomatic or hgb <7 --> Reviewed anemia workup. Iron 110, TIBC 230, Ferritin 90 and 140, B12 821, Folate 6.6, TSH 1.4 #. Leukopenia, likely secondary to hepatitis C, currently improved. --> No leukocytosis is noted. The patient has been afebrile. --> Resolved at this time. #. Tachycardia. --> Improved. Refer to cardiology note. #. Acute on hypoxic respiratory failure --> status post tracheostomy, improved. #. Hepatitis C. --> Elevated liver enzymes. Management as an outpatient. --> Appreciate Infectious Disease service evaluation as well as GI recs #. Hypertension. Systolic blood pressure goal less than 140. --> Improved. #. COPD. --> On duoneb prn. Subjective Constitutional: Denies: no symptoms, chills, diaphoresis, fever, malaise, weakness, other HEENT: Denies: no symptoms, eye pain, blurred vision, tearing, double vision, ear pain, ear discharge, nose pain, nose congestion, throat pain, throat swelling, mouth pain, mouth swelling, other Cardiovascular: Denies: no symptoms, chest pain, edema, irregular heart rate, lightheadedness, palpitations, syncope, other Respiratory: Denies: no symptoms, cough, orthopnea, shortness of breath, SOB with excertion, SOB at rest, sputum, stridor, wheezing, other Gastrointestinal/Abdominal: Denies: no symptoms, abdomen distended, abdominal pain, black stools, tarry stools, blood in stool, constipated, diarrhea, difficulty swallowing, nausea, poor appetite, poor fluid intake, rectal bleeding , vomiting, other Genitourinary: Denies: no symptoms, burning, discharge, frequency, flank pain, hematuria, incontinence, pain, urgency, other Neurologic/Psychiatric: Denies: no symptoms, anxiety, depressed, emotional problems, headache, numbness, paresthesia, pre-existing deficit, seizure, tingling, tremors, weakness, other Endocrine: Denies: no symptoms, excessive sweating, flushing, intolerance to cold, intolerance to heat, increased hunger, increased thirst, increased urine, unexplained weight gain, unexplained weight loss, other Hematologic/Lymphatic: Denies: no symptoms, anemia, easy bleeding, easy bruising, other Allergies: Coded Allergies: Shrimp (Unverified Allergy, Unknown, 12/04/17) Subjective on insulin, bs are better controlled, no complaints overnight, no breathing problems Objective Last 24 Hour Vital Signs Date Time Temp Pulse Resp B/P (MAP) Pulse Ox O2 Delivery O2 Flow Rate FiO2 01/30/18 04:05 97.5 86 20 105/61 100 Nasal Cannula 97.5 01/29/18 23:43 98.1 111 20 111/64 98 Nasal Cannula 98.1 01/29/18 19:30 90 18 Nasal Cannula 2.0 28 01/29/18 19:30 Nasal Cannula 2.0 28 01/29/18 19:30 95 Nasal Cannula 2.0 28 01/29/18 19:27 98.1 110 20 109/46 96 Room Air 98.1 01/29/18 15:37 96.1 83 18 104/55 98 96.1 01/29/18 12:07 97.9 94 19 112/72 99 97.9 01/29/18 08:12 94 Nasal Cannula 2.0 28 01/29/18 08:12 Nasal Cannula 2.0 28 01/29/18 08:12 78 20 Nasal Cannula 2.0 28 01/29/18 08:00 96.6 92 19 117/61 100 96.6 Intake and Output 01/29/18 01/30/18 19:00 07:00 Intake Total 540 ml Output Total 500 ml 900 ml Balance 40 ml -900 ml Intake Oral 540 ml Output Urine Total 500 ml 900 ml # Bowel Movements 1 Height (Feet): 5 Height (Inches): 4.00 Weight (Pounds): 146 General Appearance: no apparent distress EENT: normal ENT inspection Neck: non-tender Cardiovascular: normal peripheral pulses Respiratory/Chest: lungs clear Abdomen: non tender Extremities: non-tender Neurologic: alert Skin: warm/dry Anuj Alfaro MD January 30, 2018 07:40
[2018-01-30 08:00] VITALS: BP 108/66
[2018-01-30] MEDS: Docusate 100mg cap ORAL SCH ×3 (09:00→17:08)
[2018-01-30] MEDS: Sennosides 8.6mg ORAL SCH (09:00)
[2018-01-30] MEDS: Vitamin A&D Oint 2oz Tube TOPIC SCH ×2 (09:00→10:20)
[2018-01-30] MEDS: Levemir Flexpen SUBQ SCH ×2 (10:05→20:52)
[2018-01-30 12:00] VITALS: BP 116/68
--- NOTE | 2018-01-30 15:20 | Pulmonology Progress Note ---
Assessment/Plan Problems: (1) Acute and chronic respiratory failure (2) COPD (chronic obstructive pulmonary disease) (3) Hepatitis C Assessment/Plan looks ok doing better no new events no new complains respiratory treatment still in search of a new place Subjective ROS Limited/Unobtainable: No Constitutional: Reports: no symptoms HEENT: Repors: no symptoms Respiratory: Reports: no symptoms Allergies: Coded Allergies: Shrimp (Unverified Allergy, Unknown, 12/04/17) Objective Last 24 Hour Vital Signs Date Time Temp Pulse Resp B/P (MAP) Pulse Ox O2 Delivery O2 Flow Rate FiO2 01/30/18 12:00 98.4 91 26 116/68 99 98.4 01/30/18 08:06 96 Nasal Cannula 2.0 28 01/30/18 08:06 88 18 Nasal Cannula 2.0 28 01/30/18 08:06 Nasal Cannula 2.0 28 01/30/18 08:00 97.7 69 21 108/66 96 Nasal Cannula 2.0 97.7 01/30/18 04:05 97.5 86 20 105/61 100 Nasal Cannula 97.5 01/29/18 23:43 98.1 111 20 111/64 98 Nasal Cannula 98.1 01/29/18 19:30 90 18 Nasal Cannula 2.0 28 01/29/18 19:30 Nasal Cannula 2.0 28 01/29/18 19:30 95 Nasal Cannula 2.0 28 01/29/18 19:27 98.1 110 20 109/46 96 Room Air 98.1 01/29/18 15:37 96.1 83 18 104/55 98 96.1 Intake and Output 01/29/18 01/30/18 19:00 07:00 Intake Total 540 ml Output Total 500 ml 900 ml Balance 40 ml -900 ml Intake Oral 540 ml Output Urine Total 500 ml 900 ml # Bowel Movements 1 Objective General Appearance: cachetic HEENT: normocephalic Respiratory/Chest: chest wall non-tender, lungs clear Breasts: no masses Cardiovascular: normal peripheral pulses, normal rate Abdomen: normal bowel sounds, soft, non tender Extremities: no cyanosis, no clubbing 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 normal, no motor/sensory deficits Lymphatic: no neck adenopathy Current Medications Medications (Trade) Dose Ordered Sig/Hansel Route PRN Reason Start Time Stop Time Status Last Admin Dose Admin Acetaminophen (Tylenol) 650 mg Q6H PRN ORAL Mild Pain/Temp > 100.5 01/27/18 17:30 02/26/18 17:29 01/28/18 23:56 Clonidine HCl (Catapres Tab) 0.1 mg Q4H PRN ORAL sbp more than 160mmHg 01/21/18 21:00 02/20/18 20:59 Dextrose (Dextrose 50%) 25 ml STAT PRN IV Blood Sugar btwn 60-69 mg/dL 01/21/18 21:00 02/20/18 20:59 Dextrose (Dextrose 50%) 50 ml STAT PRN IV BS less than 60mg/dl 01/21/18 21:00 02/20/18 20:59 01/27/18 20:27 Docusate Sodium (Colace) 100 mg THREE TIMES A DAY ORAL 01/26/18 13:00 02/25/18 12:59 01/28/18 09:08 Insulin Aspart (NovoLOG) BEFORE MEALS AND HS SUBQ 01/21/18 21:00 02/19/18 16:29 01/30/18 11:37 Insulin Aspart (NovoLOG) 10 units NOVOTIAC SUBQ 01/23/18 11:50 02/22/18 11:49 01/30/18 11:35 Insulin Detemir (Levemir) 18 units EVERY 12 HOURS SUBQ 01/23/18 09:00 02/19/18 08:59 01/30/18 10:05 Polyethylene Glycol (Miralax) 17 gm BEDTIME ORAL 01/26/18 21:00 02/19/18 20:59 Sennosides (Senokot) 1 tab DAILY ORAL 01/27/18 09:00 02/26/18 08:59 01/28/18 09:09 Vitamin A/Vitamin D (A & D Oint) 1 applic EVERY 12 HOURS TOPIC 01/21/18 21:00 02/19/18 20:59 01/30/18 10:20 Leni Watts MD January 30, 2018 15:20
--- NOTE | 2018-01-30 15:59 | General Progress Note ---
Assessment/Plan Problem List: (1) Hyperkalemia ICD Codes: E87.5 - Hyperkalemia SNOMED: 99476337 (2) Acidosis ICD Codes: E87.2 - Acidosis SNOMED: 80020084 (3) CO2 retention ICD Codes: E87.2 - Acidosis SNOMED: 16450374 (4) Respiratory distress ICD Codes: R06.03 - Acute respiratory distress SNOMED: 756756982 (5) COPD (chronic obstructive pulmonary disease) ICD Codes: J44.9 - Chronic obstructive pulmonary disease, unspecified SNOMED: 97794620 (6) Hepatitis C ICD Codes: B19.20 - Unspecified viral hepatitis C without hepatic coma SNOMED: 94092329 (7) Acute and chronic respiratory failure ICD Codes: J96.20 - Acute and chronic respiratory failure, unspecified whether with hypoxia or hypercapnia SNOMED: 54241788 (8) Diabetes mellitus out of control ICD Codes: E11.65 - Type 2 diabetes mellitus with hyperglycemia SNOMED: 03540576, 145193735 (9) Tachycardia ICD Codes: R00.0 - Tachycardia, unspecified SNOMED: 1834950 (10) Hypertension ICD Codes: I10 - Essential (primary) hypertension SNOMED: 72157431 Assessment/Plan 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 [place] Risperdal Ativan Subjective Date patient seen: January 30, 2018 Allergies: Coded Allergies: Shrimp (Unverified Allergy, Unknown, 12/04/17) Subjective e pt was somewhat confused. Objective Last 24 Hour Vital Signs Date Time Temp Pulse Resp B/P (MAP) Pulse Ox O2 Delivery O2 Flow Rate FiO2 01/30/18 12:00 98.4 91 26 116/68 99 98.4 01/30/18 08:06 96 Nasal Cannula 2.0 28 01/30/18 08:06 88 18 Nasal Cannula 2.0 28 01/30/18 08:06 Nasal Cannula 2.0 28 01/30/18 08:00 97.7 69 21 108/66 96 Nasal Cannula 2.0 97.7 01/30/18 04:05 97.5 86 20 105/61 100 Nasal Cannula 97.5 01/29/18 23:43 98.1 111 20 111/64 98 Nasal Cannula 98.1 01/29/18 19:30 90 18 Nasal Cannula 2.0 28 01/29/18 19:30 Nasal Cannula 2.0 28 01/29/18 19:30 95 Nasal Cannula 2.0 28 01/29/18 19:27 98.1 110 20 109/46 96 Room Air 98.1 Intake and Output 01/29/18 01/30/18 19:00 07:00 Intake Total 540 ml Output Total 500 ml 900 ml Balance 40 ml -900 ml Intake Oral 540 ml Output Urine Total 500 ml 900 ml # Bowel Movements 1 Height (Feet): 5 Height (Inches): 4.00 Weight (Pounds): 146 Grisel Jay M.D. January 30, 2018 15:59
[2018-01-30 16:00] VITALS: BP 114/55
--- NOTE | 2018-01-30 18:39 | Infectious Diseases Prog Note ---
Assessment/Plan Assessment/Plan A: Acute hypoxic resp failure improved COPD exacerbation, s/p -CXR 01/21: Mild pulmonary vascular congestion may be present. Correlate clinically. Left pleural effusion suspected -CXR: No acute disease Afebrile, no leukocytosis Recent acute hypoxic failure and PNA 11/2015 -sp cx 12/04: E.coli (davila S), P. mirabilis (davila S) Influenza sc : Neg transaminitis , SP Chronic Hep C, untreated VL 3.8 m,illions Hep panel : A Imm ; B not immune HIV Neg hx of trach s/p removal COPD Dm2 HTN [facility] resident Plan: - Monitor pt off of AB Rx -12/24 SP Levaquin # 5 /5 -12/10 SP Cefepime #7 -12/06 SP Vanco #3 -Monitor CBC/BMP, temperatures -aspiration precautions Hem fup, re TCP needs treatment of Hep C as outpatient needs Hep B vaccine as outpatient Subjective Constitutional: Denies: no symptoms, fever, chills, fatigue, anorexia, drenching sweats, other Allergies: Coded Allergies: Shrimp (Unverified Allergy, Unknown, 12/04/17) Subjective comfortable Objective Vital Signs Last 24 Hour Vital Signs Date Time Temp Pulse Resp B/P (MAP) Pulse Ox O2 Delivery O2 Flow Rate FiO2 01/30/18 16:00 97.2 87 19 114/55 98 97.2 01/30/18 12:00 98.4 91 26 116/68 99 98.4 01/30/18 08:06 96 Nasal Cannula 2.0 28 01/30/18 08:06 88 18 Nasal Cannula 2.0 28 01/30/18 08:06 Nasal Cannula 2.0 28 01/30/18 08:00 97.7 69 21 108/66 96 Nasal Cannula 2.0 97.7 01/30/18 04:05 97.5 86 20 105/61 100 Nasal Cannula 97.5 01/29/18 23:43 98.1 111 20 111/64 98 Nasal Cannula 98.1 01/29/18 19:30 90 18 Nasal Cannula 2.0 28 01/29/18 19:30 Nasal Cannula 2.0 28 01/29/18 19:30 95 Nasal Cannula 2.0 28 01/29/18 19:27 98.1 110 20 109/46 96 Room Air 98.1 Height (Feet): 5 Height (Inches): 4.00 Weight (Pounds): 146 HEENT: atraumatic Respiratory/Chest: normal breath sounds Cardiovascular: normal rate Abdomen: soft, non tender Current Medications Medications (Trade) Dose Ordered Sig/Hansel Route PRN Reason Start Time Stop Time Status Last Admin Dose Admin Acetaminophen (Tylenol) 650 mg Q6H PRN ORAL Mild Pain/Temp > 100.5 01/27/18 17:30 02/26/18 17:29 01/28/18 23:56 Clonidine HCl (Catapres Tab) 0.1 mg Q4H PRN ORAL sbp more than 160mmHg 01/21/18 21:00 02/20/18 20:59 Dextrose (Dextrose 50%) 25 ml STAT PRN IV Blood Sugar btwn 60-69 mg/dL 01/21/18 21:00 02/20/18 20:59 Dextrose (Dextrose 50%) 50 ml STAT PRN IV BS less than 60mg/dl 01/21/18 21:00 02/20/18 20:59 01/27/18 20:27 Docusate Sodium (Colace) 100 mg THREE TIMES A DAY ORAL 01/26/18 13:00 02/25/18 12:59 01/28/18 09:08 Insulin Aspart (NovoLOG) BEFORE MEALS AND HS SUBQ 01/21/18 21:00 02/19/18 16:29 01/30/18 11:37 Insulin Aspart (NovoLOG) 10 units NOVOTIAC SUBQ 01/23/18 11:50 02/22/18 11:49 01/30/18 11:35 Insulin Detemir (Levemir) 18 units EVERY 12 HOURS SUBQ 01/23/18 09:00 02/19/18 08:59 01/30/18 10:05 Polyethylene Glycol (Miralax) 17 gm BEDTIME ORAL 01/26/18 21:00 02/19/18 20:59 Sennosides (Senokot) 1 tab DAILY ORAL 01/27/18 09:00 02/26/18 08:59 01/28/18 09:09 Vitamin A/Vitamin D (A & D Oint) 1 applic EVERY 12 HOURS TOPIC 01/21/18 21:00 02/19/18 20:59 01/30/18 10:20 Steve Griffin MD January 30, 2018 18:39
[2018-01-30 20:00] VITALS: BP 114/53
[2018-01-30] MEDS: Miralax 17gm pkt ORAL SCH (20:52)
--- NOTE | 2018-01-30 23:08 | Internal Med Progress Note ---
Subjective Physician Name Tone Fried Attending Physician Tone Fried MD Current Medications Medications (Trade) Dose Ordered Sig/Hansel Route PRN Reason Start Time Stop Time Status Last Admin Dose Admin Acetaminophen (Tylenol) 650 mg Q6H PRN ORAL Mild Pain/Temp > 100.5 01/27/18 17:30 02/26/18 17:29 01/28/18 23:56 Clonidine HCl (Catapres Tab) 0.1 mg Q4H PRN ORAL sbp more than 160mmHg 01/21/18 21:00 02/20/18 20:59 Dextrose (Dextrose 50%) 25 ml STAT PRN IV Blood Sugar btwn 60-69 mg/dL 01/21/18 21:00 02/20/18 20:59 Dextrose (Dextrose 50%) 50 ml STAT PRN IV BS less than 60mg/dl 01/21/18 21:00 02/20/18 20:59 01/27/18 20:27 Docusate Sodium (Colace) 100 mg THREE TIMES A DAY ORAL 01/26/18 13:00 02/25/18 12:59 01/28/18 09:08 Insulin Aspart (NovoLOG) BEFORE MEALS AND HS SUBQ 01/21/18 21:00 02/19/18 16:29 01/30/18 20:51 Insulin Aspart (NovoLOG) 10 units NOVOTIAC SUBQ 01/23/18 11:50 02/22/18 11:49 01/30/18 11:35 Insulin Detemir (Levemir) 18 units EVERY 12 HOURS SUBQ 01/23/18 09:00 02/19/18 08:59 01/30/18 20:52 Polyethylene Glycol (Miralax) 17 gm BEDTIME ORAL 01/26/18 21:00 02/19/18 20:59 Sennosides (Senokot) 1 tab DAILY ORAL 01/27/18 09:00 02/26/18 08:59 01/28/18 09:09 Vitamin A/Vitamin D (A & D Oint) 1 applic EVERY 12 HOURS TOPIC 01/21/18 21:00 02/19/18 20:59 01/30/18 10:20 Allergies: Coded Allergies: Shrimp (Unverified Allergy, Unknown, 12/04/17) Subjective awake, alert, responsive, NAD Objective Last Vital Signs Date Time Temp Pulse Resp B/P (MAP) Pulse Ox O2 Delivery O2 Flow Rate FiO2 01/30/18 20:00 97.5 65 18 114/53 98 97.5 01/30/18 20:00 Nasal Cannula 2.0 01/30/18 08:06 28 Intake and Output 01/29/18 01/30/18 19:00 07:00 Intake Total 540 ml Output Total 500 ml 900 ml Balance 40 ml -900 ml Intake Oral 540 ml Output Urine Total 500 ml 900 ml # Bowel Movements 1 Objective General: No acute distress, awake and alert HEENT: NCAT, sclera anicteric, PERRL, EOMI. Neck: Supple, no significant jugular venous distention, Old Trach scar. Lungs: Fair inspiratory effort, decrease air at bases, no Wheeze or Rales. Heart: Regular rate and rhythm, normal S1/S2, no murmur Abdomen: soft, nontender, nondistended. Normoactive bowel sounds. / Rectal: Refused and deferred. Extremities: No Cyanosis , clubbing or edema. Muscle atrophy LE's Neuro: A&O x 3, Able to move all extremities Skin: warm, no rashes Assessment/Plan Assessment/Plan Acute hypoxic respiratory failure Acute COPD exacerbation- transaminitis improving Hx of Hep C hx of trach s/p removal DM Type 2 HTN Plan: AbX: monitor off O2 Via NC Neb Tx F/U with Dr. Watts recommendation DC Planning , waiting for placement Tone Fried MD January 30, 2018 23:08
[2018-01-31] VITALS: BP 114/68
[2018-01-31 03:40] VITALS: BP 101/62
[2018-01-31] MEDS: NovoLOG Insulin Flexpen SUBQ SCH ×7 (05:58→21:00)
--- NOTE | 2018-01-31 06:46 | General Progress Note ---
Assessment/Plan Problem List: (1) Diabetes mellitus out of control ICD Codes: E11.65 - Type 2 diabetes mellitus with hyperglycemia SNOMED: 13279601, 009104312 (2) COPD (chronic obstructive pulmonary disease) ICD Codes: J44.9 - Chronic obstructive pulmonary disease, unspecified SNOMED: 55742420 (3) Acute and chronic respiratory failure ICD Codes: J96.20 - Acute and chronic respiratory failure, unspecified whether with hypoxia or hypercapnia SNOMED: 10175812 Assessment/Plan continue Levemir 18 units bid continue Novolog to 10 units ac tid continue NISS Subjective Allergies: Coded Allergies: Shrimp (Unverified Allergy, Unknown, 12/04/17) All Systems: reviewed and negative except above Subjective events noted - interval notes reviewed Objective Last 24 Hour Vital Signs Date Time Temp Pulse Resp B/P (MAP) Pulse Ox O2 Delivery O2 Flow Rate FiO2 01/31/18 03:40 97.9 92 18 101/62 100 97.9 01/31/18 03:40 Nasal Cannula 2.0 01/31/18 00:00 Nasal Cannula 2.0 01/31/18 00:00 97.5 89 18 114/68 100 97.5 01/30/18 20:00 97.5 65 18 114/53 98 97.5 01/30/18 20:00 Nasal Cannula 2.0 01/30/18 19:21 95 Nasal Cannula 2.0 28 01/30/18 19:21 82 18 Nasal Cannula 2.0 28 01/30/18 19:21 Nasal Cannula 2.0 28 01/30/18 16:00 97.2 87 19 114/55 98 97.2 01/30/18 12:00 98.4 91 26 116/68 99 98.4 01/30/18 08:06 96 Nasal Cannula 2.0 28 01/30/18 08:06 88 18 Nasal Cannula 2.0 28 01/30/18 08:06 Nasal Cannula 2.0 28 01/30/18 08:00 97.7 69 21 108/66 96 Nasal Cannula 2.0 97.7 Intake and Output 01/30/18 01/31/18 19:00 07:00 Intake Total 360 ml 200 ml Output Total 700 ml 300 ml Balance -340 ml -100 ml Intake Oral 360 ml 200 ml Output Urine Total 700 ml 300 ml Height (Feet): 5 Height (Inches): 4.00 Weight (Pounds): 147 General Appearance: no apparent distress Neck: normal alignment Cardiovascular: regular rhythm Respiratory/Chest: lungs clear Abdomen: normal bowel sounds Pelvis: normal external exam Objective Current Medications Medications (Trade) Dose Ordered Sig/Hansel Route PRN Reason Start Time Stop Time Status Last Admin Dose Admin Acetaminophen (Tylenol) 650 mg Q6H PRN ORAL Mild Pain/Temp > 100.5 01/27/18 17:30 02/26/18 17:29 01/28/18 23:56 Clonidine HCl (Catapres Tab) 0.1 mg Q4H PRN ORAL sbp more than 160mmHg 01/21/18 21:00 02/20/18 20:59 Dextrose (Dextrose 50%) 25 ml STAT PRN IV Blood Sugar btwn 60-69 mg/dL 01/21/18 21:00 02/20/18 20:59 Dextrose (Dextrose 50%) 50 ml STAT PRN IV BS less than 60mg/dl 01/21/18 21:00 02/20/18 20:59 01/27/18 20:27 Docusate Sodium (Colace) 100 mg THREE TIMES A DAY ORAL 01/26/18 13:00 02/25/18 12:59 01/28/18 09:08 Insulin Aspart (NovoLOG) BEFORE MEALS AND HS SUBQ 01/21/18 21:00 02/19/18 16:29 01/31/18 05:58 Insulin Aspart (NovoLOG) 10 units NOVOTIAC SUBQ 01/23/18 11:50 02/22/18 11:49 01/31/18 05:58 Insulin Detemir (Levemir) 18 units EVERY 12 HOURS SUBQ 01/23/18 09:00 02/19/18 08:59 01/30/18 20:52 Polyethylene Glycol (Miralax) 17 gm BEDTIME ORAL 01/26/18 21:00 02/19/18 20:59 Sennosides (Senokot) 1 tab DAILY ORAL 01/27/18 09:00 02/26/18 08:59 01/28/18 09:09 Vitamin A/Vitamin D (A & D Oint) 1 applic EVERY 12 HOURS TOPIC 01/21/18 21:00 02/19/18 20:59 01/30/18 10:20 Item Value Date Time Bedside Blood Glucose 123 mg/dl H 01/31/18 0624 Bedside Blood Glucose 316 mg/dl H 01/30/18 2100 Bedside Blood Glucose 75 mg/dl 01/30/18 1649 Bedside Blood Glucose 307 mg/dl H 01/30/18 1137 Bedside Blood Glucose 162 mg/dl H 01/30/18 1005 Bedside Blood Glucose 162 mg/dl H 01/30/18 0634 FEMI MCKEON January 31, 2018 06:46
[2018-01-31 08:00] VITALS: BP 111/65
[2018-01-31] MEDS: Vitamin A&D Oint 2oz Tube TOPIC SCH ×2 (08:25→22:14)
[2018-01-31] MEDS: Levemir Flexpen SUBQ SCH ×2 (08:25→21:00)
[2018-01-31] MEDS: Docusate 100mg cap ORAL SCH ×3 (08:26→17:04)
[2018-01-31] MEDS: Sennosides 8.6mg ORAL SCH (08:26)
--- NOTE | 2018-01-31 09:50 | General Progress Note ---
Assessment/Plan Assessment/Plan #. Thrombocytopenia, secondary to hepatitis, early liver disease, Hep A ++, C ++ , baseline appears to be 100-200k --> platelet count has improved, baseline >100k --> Gi to follow as outpatient #. Anemia due to underlying chronic disease. Mild at this time. --> Continue to closely monitor. Has been stable. --> Blood transfusion not required unless symptomatic or hgb <7 --> Reviewed anemia workup. Iron 110, TIBC 230, Ferritin 90 and 140, B12 821, Folate 6.6, TSH 1.4 --> hgb goal >7 #. Leukopenia, likely secondary to hepatitis C, currently improved. --> No leukocytosis is noted. --> Resolved at this time. #. Tachycardia. --> Improved. Refer to cardiology note. #. Acute on hypoxic respiratory failure --> status post tracheostomy, improved. #. Hepatitis C. --> Elevated liver enzymes. Management as an outpatient. --> Appreciate Infectious Disease service evaluation as well as GI recs Subjective Constitutional: Reports: no symptoms HEENT: Reports: no symptoms Cardiovascular: Reports: no symptoms Respiratory: Reports: no symptoms Gastrointestinal/Abdominal: Reports: no symptoms Genitourinary: Reports: no symptoms Neurologic/Psychiatric: Reports: no symptoms Endocrine: Reports: no symptoms Hematologic/Lymphatic: Reports: anemia Allergies: Coded Allergies: Shrimp (Unverified Allergy, Unknown, 12/04/17) Subjective plts are better, she is sitting up in bed, eating Objective Last 24 Hour Vital Signs Date Time Temp Pulse Resp B/P (MAP) Pulse Ox O2 Delivery O2 Flow Rate FiO2 01/31/18 09:35 98.2 01/31/18 08:36 98.2 01/31/18 08:00 98.2 94 20 111/65 98 98.2 01/31/18 06:45 97 Nasal Cannula 2.0 28 01/31/18 06:45 Nasal Cannula 2.0 28 01/31/18 06:45 89 18 Nasal Cannula 2.0 28 01/31/18 03:40 97.9 92 18 101/62 100 97.9 01/31/18 03:40 Nasal Cannula 2.0 01/31/18 00:00 Nasal Cannula 2.0 01/31/18 00:00 97.5 89 18 114/68 100 97.5 01/30/18 20:00 97.5 65 18 114/53 98 97.5 01/30/18 20:00 Nasal Cannula 2.0 01/30/18 19:21 95 Nasal Cannula 2.0 28 01/30/18 19:21 82 18 Nasal Cannula 2.0 28 01/30/18 19:21 Nasal Cannula 2.0 28 01/30/18 16:00 97.2 87 19 114/55 98 97.2 01/30/18 12:00 98.4 91 26 116/68 99 98.4 Intake and Output 01/30/18 01/31/18 19:00 07:00 Intake Total 360 ml 200 ml Output Total 700 ml 300 ml Balance -340 ml -100 ml Intake Oral 360 ml 200 ml Output Urine Total 700 ml 300 ml Height (Feet): 5 Height (Inches): 4.00 Weight (Pounds): 147 General Appearance: alert EENT: normal ENT inspection Neck: supple Respiratory/Chest: normal breath sounds Abdomen: non tender Extremities: non-tender Neurologic: alert Skin: normal pigmentation Anuj Alfaro MD January 31, 2018 09:50
[2018-01-31 12:00] VITALS: BP 108/58
--- NOTE | 2018-01-31 13:43 | Infectious Diseases Prog Note ---
Assessment/Plan Assessment/Plan A: Acute hypoxic resp failure improved COPD exacerbation, s/p -CXR 01/21: Mild pulmonary vascular congestion may be present. Correlate clinically. Left pleural effusion suspected -CXR: No acute disease Afebrile, no leukocytosis Recent acute hypoxic failure and PNA 11/2015 -sp cx 12/04: E.coli (davila S), P. mirabilis (davila S) Influenza sc : Neg transaminitis , SP Chronic Hep C, untreated VL 3.8 m,illions Hep panel : A Imm ; B not immune HIV Neg hx of trach s/p removal COPD Dm2 HTN [facility] resident Plan: - Monitor pt off of AB Rx -12/24 SP Levaquin # 5 /5 -12/10 SP Cefepime #7 -12/06 SP Vanco #3 -Monitor CBC/BMP, temperatures -aspiration precautions Hem fup, re TCP needs treatment of Hep C as outpatient needs Hep B vaccine as outpatient Subjective Allergies: Coded Allergies: Shrimp (Unverified Allergy, Unknown, 12/04/17) Subjective no new complain Objective Vital Signs Last 24 Hour Vital Signs Date Time Temp Pulse Resp B/P (MAP) Pulse Ox O2 Delivery O2 Flow Rate FiO2 01/31/18 12:00 97.7 93 20 108/58 100 97.7 01/31/18 09:35 98.2 01/31/18 08:36 98.2 01/31/18 08:00 98.2 94 20 111/65 98 98.2 01/31/18 06:45 97 Nasal Cannula 2.0 28 01/31/18 06:45 Nasal Cannula 2.0 28 01/31/18 06:45 89 18 Nasal Cannula 2.0 28 01/31/18 03:40 97.9 92 18 101/62 100 97.9 01/31/18 03:40 Nasal Cannula 2.0 01/31/18 00:00 Nasal Cannula 2.0 01/31/18 00:00 97.5 89 18 114/68 100 97.5 01/30/18 20:00 97.5 65 18 114/53 98 97.5 01/30/18 20:00 Nasal Cannula 2.0 01/30/18 19:21 95 Nasal Cannula 2.0 28 01/30/18 19:21 82 18 Nasal Cannula 2.0 28 01/30/18 19:21 Nasal Cannula 2.0 28 01/30/18 16:00 97.2 87 19 114/55 98 97.2 Height (Feet): 5 Height (Inches): 4.00 Weight (Pounds): 147 HEENT: anicteric Respiratory/Chest: respiratory distress Cardiovascular: regular rhythm Abdomen: non distended Current Medications Medications (Trade) Dose Ordered Sig/Hansel Route PRN Reason Start Time Stop Time Status Last Admin Dose Admin Acetaminophen (Tylenol) 650 mg Q6H PRN ORAL Mild Pain/Temp > 100.5 01/27/18 17:30 02/26/18 17:29 01/31/18 08:36 Clonidine HCl (Catapres Tab) 0.1 mg Q4H PRN ORAL sbp more than 160mmHg 01/21/18 21:00 02/20/18 20:59 Dextrose (Dextrose 50%) 25 ml STAT PRN IV Blood Sugar btwn 60-69 mg/dL 01/21/18 21:00 02/20/18 20:59 Dextrose (Dextrose 50%) 50 ml STAT PRN IV BS less than 60mg/dl 01/21/18 21:00 02/20/18 20:59 01/27/18 20:27 Docusate Sodium (Colace) 100 mg THREE TIMES A DAY ORAL 01/26/18 13:00 02/25/18 12:59 01/28/18 09:08 Insulin Aspart (NovoLOG) BEFORE MEALS AND HS SUBQ 01/21/18 21:00 02/19/18 16:29 01/31/18 12:03 Insulin Aspart (NovoLOG) 10 units NOVOTIAC SUBQ 01/23/18 11:50 02/22/18 11:49 01/31/18 12:05 Insulin Detemir (Levemir) 18 units EVERY 12 HOURS SUBQ 01/23/18 09:00 02/19/18 08:59 01/31/18 08:25 Polyethylene Glycol (Miralax) 17 gm BEDTIME ORAL 01/26/18 21:00 02/19/18 20:59 Sennosides (Senokot) 1 tab DAILY ORAL 01/27/18 09:00 02/26/18 08:59 01/28/18 09:09 Vitamin A/Vitamin D (A & D Oint) 1 applic EVERY 12 HOURS TOPIC 01/21/18 21:00 02/19/18 20:59 01/31/18 08:25 Steve Griffin MD January 31, 2018 13:43
--- NOTE | 2018-01-31 14:18 | Pulmonology Progress Note ---
Assessment/Plan Problems: (1) Acute and chronic respiratory failure (2) COPD (chronic obstructive pulmonary disease) (3) Hepatitis C Assessment/Plan doing better no new events no new complains respiratory treatment still in search of a new place Subjective ROS Limited/Unobtainable: No Constitutional: Reports: no symptoms Respiratory: Reports: no symptoms Allergies: Coded Allergies: Shrimp (Unverified Allergy, Unknown, 12/04/17) Objective Last 24 Hour Vital Signs Date Time Temp Pulse Resp B/P (MAP) Pulse Ox O2 Delivery O2 Flow Rate FiO2 01/31/18 12:00 97.7 93 20 108/58 100 97.7 01/31/18 09:35 98.2 01/31/18 08:36 98.2 01/31/18 08:00 98.2 94 20 111/65 98 98.2 01/31/18 06:45 97 Nasal Cannula 2.0 28 01/31/18 06:45 Nasal Cannula 2.0 28 01/31/18 06:45 89 18 Nasal Cannula 2.0 01/31/18 03:40 97.9 92 18 101/62 100 97.9 01/31/18 03:40 Nasal Cannula 2.0 01/31/18 00:00 Nasal Cannula 2.0 01/31/18 00:00 97.5 89 18 114/68 100 97.5 01/30/18 20:00 97.5 65 18 114/53 98 97.5 01/30/18 20:00 Nasal Cannula 2.0 01/30/18 19:21 95 Nasal Cannula 2.0 28 01/30/18 19:21 82 18 Nasal Cannula 2.0 01/30/18 19:21 Nasal Cannula 2.0 28 01/30/18 16:00 97.2 87 19 114/55 98 97.2 Intake and Output 01/30/18 01/31/18 19:00 07:00 Intake Total 360 ml 200 ml Output Total 700 ml 300 ml Balance -340 ml -100 ml Intake Oral 360 ml 200 ml Output Urine Total 700 ml 300 ml Objective General Appearance: cachetic HEENT: normocephalic Respiratory/Chest: chest wall non-tender, lungs clear Breasts: no masses Cardiovascular: normal peripheral pulses, normal rate Abdomen: normal bowel sounds, soft, non tender Extremities: no cyanosis, no clubbing 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 II-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 grossly normal, no motor/sensory deficits Lymphatic: no neck adenopathy Current Medications Medications (Trade) Dose Ordered Sig/Hansel Route PRN Reason Start Time Stop Time Status Last Admin Dose Admin Acetaminophen (Tylenol) 650 mg Q6H PRN ORAL Mild Pain/Temp > 100.5 01/27/18 17:30 02/26/18 17:29 01/31/18 08:36 Clonidine HCl (Catapres Tab) 0.1 mg Q4H PRN ORAL sbp more than 160mmHg 01/21/18 21:00 02/20/18 20:59 Dextrose (Dextrose 50%) 25 ml STAT PRN IV Blood Sugar btwn 60-69 mg/dL 01/21/18 21:00 02/20/18 20:59 Dextrose (Dextrose 50%) 50 ml STAT PRN IV BS less than 60mg/dl 01/21/18 21:00 02/20/18 20:59 01/27/18 20:27 Docusate Sodium (Colace) 100 mg THREE TIMES A DAY ORAL 01/26/18 13:00 02/25/18 12:59 01/28/18 09:08 Insulin Aspart (NovoLOG) BEFORE MEALS AND HS SUBQ 01/21/18 21:00 02/19/18 16:29 01/31/18 12:03 Insulin Aspart (NovoLOG) 10 units NOVOTIAC SUBQ 01/23/18 11:50 02/22/18 11:49 01/31/18 12:05 Insulin Detemir (Levemir) 18 units EVERY 12 HOURS SUBQ 01/23/18 09:00 02/19/18 08:59 01/31/18 08:25 Polyethylene Glycol (Miralax) 17 gm BEDTIME ORAL 01/26/18 21:00 02/19/18 20:59 Sennosides (Senokot) 1 tab DAILY ORAL 01/27/18 09:00 02/26/18 08:59 01/28/18 09:09 Vitamin A/Vitamin D (A & D Oint) 1 applic EVERY 12 HOURS TOPIC 01/21/18 21:00 02/19/18 20:59 01/31/18 08:25 Leni Watts MD January 31, 2018 14:18
[2018-01-31 16:00] VITALS: BP 112/53
--- NOTE | 2018-01-31 16:06 | General Progress Note ---
Assessment/Plan Problem List: (1) Hyperkalemia ICD Codes: E87.5 - Hyperkalemia SNOMED: 86725466 (2) Acidosis ICD Codes: E87.2 - Acidosis SNOMED: 48397739 (3) CO2 retention ICD Codes: E87.2 - Acidosis SNOMED: 25431493 (4) Respiratory distress ICD Codes: R06.03 - Acute respiratory distress SNOMED: 970827515 (5) COPD (chronic obstructive pulmonary disease) ICD Codes: J44.9 - Chronic obstructive pulmonary disease, unspecified SNOMED: 57933934 (6) Hepatitis C ICD Codes: B19.20 - Unspecified viral hepatitis C without hepatic coma SNOMED: 56670933 (7) Acute and chronic respiratory failure ICD Codes: J96.20 - Acute and chronic respiratory failure, unspecified whether with hypoxia or hypercapnia SNOMED: 26180570 (8) Diabetes mellitus out of control ICD Codes: E11.65 - Type 2 diabetes mellitus with hyperglycemia SNOMED: 17450630, 748799950 (9) Tachycardia ICD Codes: R00.0 - Tachycardia, unspecified SNOMED: 8439639 (10) Hypertension ICD Codes: I10 - Essential (primary) hypertension SNOMED: 53687622 Assessment/Plan 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 Objective Last 24 Hour Vital Signs Date Time Temp Pulse Resp B/P (MAP) Pulse Ox O2 Delivery O2 Flow Rate FiO2 01/31/18 12:00 97.7 93 20 108/58 100 97.7 01/31/18 09:35 98.2 01/31/18 08:36 98.2 01/31/18 08:00 98.2 94 20 111/65 98 98.2 01/31/18 06:45 97 Nasal Cannula 2.0 28 01/31/18 06:45 Nasal Cannula 2.0 28 01/31/18 06:45 89 18 Nasal Cannula 2.0 28 01/31/18 03:40 97.9 92 18 101/62 100 97.9 01/31/18 03:40 Nasal Cannula 2.0 01/31/18 00:00 Nasal Cannula 2.0 01/31/18 00:00 97.5 89 18 114/68 100 97.5 01/30/18 20:00 97.5 65 18 114/53 98 97.5 01/30/18 20:00 Nasal Cannula 2.0 01/30/18 19:21 95 Nasal Cannula 2.0 28 01/30/18 19:21 82 18 Nasal Cannula 2.0 28 01/30/18 19:21 Nasal Cannula 2.0 28 Intake and Output 01/30/18 01/31/18 19:00 07:00 Intake Total 360 ml 200 ml Output Total 700 ml 300 ml Balance -340 ml -100 ml Intake Oral 360 ml 200 ml Output Urine Total 700 ml 300 ml Height (Feet): 5 Height (Inches): 4.00 Weight (Pounds): 147 General Appearance: no apparent distress, alert Neurologic: oriented x 3, responsive, depressed affect Grisel Jay M.D. January 31, 2018 16:06
[2018-01-31 20:00] VITALS: BP 124/66
[2018-01-31] MEDS: Miralax 17gm pkt ORAL SCH (21:00)
--- NOTE | 2018-01-31 22:42 | Internal Med Progress Note ---
Subjective Physician Name Tone Fried Attending Physician Tone Fried MD Current Medications Medications (Trade) Dose Ordered Sig/Hansel Route PRN Reason Start Time Stop Time Status Last Admin Dose Admin Acetaminophen (Tylenol) 650 mg Q6H PRN ORAL Mild Pain/Temp > 100.5 01/27/18 17:30 02/26/18 17:29 01/31/18 08:36 Clonidine HCl (Catapres Tab) 0.1 mg Q4H PRN ORAL sbp more than 160mmHg 01/21/18 21:00 02/20/18 20:59 Dextrose (Dextrose 50%) 25 ml STAT PRN IV Blood Sugar btwn 60-69 mg/dL 01/21/18 21:00 02/20/18 20:59 Dextrose (Dextrose 50%) 50 ml STAT PRN IV BS less than 60mg/dl 01/21/18 21:00 02/20/18 20:59 01/27/18 20:27 Docusate Sodium (Colace) 100 mg THREE TIMES A DAY ORAL 01/26/18 13:00 02/25/18 12:59 01/28/18 09:08 Insulin Aspart (NovoLOG) BEFORE MEALS AND HS SUBQ 01/21/18 21:00 02/19/18 16:29 01/31/18 16:50 Insulin Aspart (NovoLOG) 10 units NOVOTIAC SUBQ 01/23/18 11:50 02/22/18 11:49 01/31/18 16:48 Insulin Detemir (Levemir) 18 units EVERY 12 HOURS SUBQ 01/23/18 09:00 02/19/18 08:59 01/31/18 08:25 Polyethylene Glycol (Miralax) 17 gm BEDTIME ORAL 01/26/18 21:00 02/19/18 20:59 Sennosides (Senokot) 1 tab DAILY ORAL 01/27/18 09:00 02/26/18 08:59 01/28/18 09:09 Vitamin A/Vitamin D (A & D Oint) 1 applic EVERY 12 HOURS TOPIC 01/21/18 21:00 02/19/18 20:59 01/31/18 22:14 Allergies: Coded Allergies: Shrimp (Unverified Allergy, Unknown, 12/04/17) Subjective awake, alert, responsive, NAD Objective Last Vital Signs Date Time Temp Pulse Resp B/P (MAP) Pulse Ox O2 Delivery O2 Flow Rate FiO2 01/31/18 20:00 97.7 88 18 124/66 98 97.7 01/31/18 19:47 Nasal Cannula 2.0 28 Intake and Output 01/30/18 01/31/18 19:00 07:00 Intake Total 360 ml 200 ml Output Total 700 ml 300 ml Balance -340 ml -100 ml Intake Oral 360 ml 200 ml Output Urine Total 700 ml 300 ml Objective General: No acute distress, awake and alert HEENT: NCAT, sclera anicteric, PERRL, EOMI. Neck: Supple, no significant jugular venous distention, Old Trach scar. Lungs: Fair inspiratory effort, decrease air at bases, no Wheeze or Rales. Heart: Regular rate and rhythm, normal S1/S2, no murmur Abdomen: soft, nontender, nondistended. Normoactive bowel sounds. / Rectal: Refused and deferred. Extremities: No Cyanosis , clubbing or edema. Muscle atrophy LE's Neuro: A&O x 3, Able to move upper extremities, Paraplegia. Skin: warm, no rashes Assessment/Plan Assessment/Plan Acute hypoxic respiratory failure Acute COPD exacerbation- transaminitis improving Hx of Hep C hx of trach s/p removal DM Type 2 HTN Plan: AbX: monitor off O2 Via NC Neb Tx F/U with Dr. Watts recommendation DC Planning , waiting for placement Tone Fried MD January 31, 2018 22:42
[2018-02-01] VITALS: BP 106/54
[2018-02-01 04:00] VITALS: BP 115/67
[2018-02-01] MEDS: NovoLOG Insulin Flexpen SUBQ SCH ×7 (06:39→20:49)
[2018-02-01 08:00] VITALS: BP 115/53
[2018-02-01] MEDS: Sennosides 8.6mg ORAL SCH (09:00)
[2018-02-01] MEDS: Docusate 100mg cap ORAL SCH ×3 (09:00→17:02)
[2018-02-01] MEDS: Vitamin A&D Oint 2oz Tube TOPIC SCH ×2 (09:39→20:50)
[2018-02-01] MEDS: Levemir Flexpen SUBQ SCH ×2 (09:40→20:50)
--- NOTE | 2018-02-01 09:46 | Infectious Diseases Prog Note ---
Assessment/Plan Assessment/Plan A: Acute hypoxic resp failure improved COPD exacerbation, s/p -CXR 01/21: Mild pulmonary vascular congestion may be present. Correlate clinically. Left pleural effusion suspected -CXR: No acute disease Afebrile, no leukocytosis Recent acute hypoxic failure and PNA 11/2015 -sp cx 12/04: E.coli (davila S), P. mirabilis (davila S) Influenza sc : Neg transaminitis , SP Chronic Hep C, untreated VL 3.8 m,illions Hep panel : A Imm ; B not immune HIV Neg hx of trach s/p removal COPD Dm2 HTN NH resident Plan: - Monitor pt off of AB Rx -12/24 SP Levaquin # 5 /5 -12/10 SP Cefepime #7 -12/06 SP Vanco #3 -Monitor CBC/BMP, temperatures -aspiration precautions Hem fup, re TCP needs treatment of Hep C as outpatient needs Hep B vaccine as outpatient DC Planning , waiting for placement Subjective Constitutional: Denies: no symptoms, fever, chills, fatigue, anorexia, drenching sweats, other Allergies: Coded Allergies: Shrimp (Unverified Allergy, Unknown, 12/04/17) Subjective no new complain Objective Vital Signs Last 24 Hour Vital Signs Date Time Temp Pulse Resp B/P (MAP) Pulse Ox O2 Delivery O2 Flow Rate FiO2 02/01/18 08:00 98.2 94 20 115/53 96 Nasal Cannula 2.0 98.2 02/01/18 04:00 98.9 95 18 115/67 100 98.9 02/01/18 00:00 97.7 97 18 106/54 99 97.7 02/01/18 00:00 Nasal Cannula 2.0 01/31/18 20:00 97.7 88 18 124/66 98 97.7 01/31/18 20:00 Nasal Cannula 2.0 01/31/18 19:47 Nasal Cannula 2.0 28 01/31/18 19:47 97 Nasal Cannula 2.0 28 01/31/18 16:00 97.7 89 20 112/53 99 97.7 01/31/18 12:00 97.7 93 20 108/58 100 97.7 Height (Feet): 5 Height (Inches): 4.00 Weight (Pounds): 146 HEENT: anicteric Respiratory/Chest: no respiratory distress Cardiovascular: regularly irregular Abdomen: no organomegaly Current Medications Medications (Trade) Dose Ordered Sig/Hansel Route PRN Reason Start Time Stop Time Status Last Admin Dose Admin Acetaminophen (Tylenol) 650 mg Q6H PRN ORAL Mild Pain/Temp > 100.5 01/27/18 17:30 02/26/18 17:29 01/31/18 08:36 Clonidine HCl (Catapres Tab) 0.1 mg Q4H PRN ORAL sbp more than 160mmHg 01/21/18 21:00 02/20/18 20:59 Dextrose (Dextrose 50%) 25 ml STAT PRN IV Blood Sugar btwn 60-69 mg/dL 01/21/18 21:00 02/20/18 20:59 Dextrose (Dextrose 50%) 50 ml STAT PRN IV BS less than 60mg/dl 01/21/18 21:00 02/20/18 20:59 01/27/18 20:27 Docusate Sodium (Colace) 100 mg THREE TIMES A DAY ORAL 01/26/18 13:00 02/25/18 12:59 01/28/18 09:08 Insulin Aspart (NovoLOG) BEFORE MEALS AND HS SUBQ 01/21/18 21:00 02/19/18 16:29 02/01/18 06:41 Insulin Aspart (NovoLOG) 10 units NOVOTIAC SUBQ 01/23/18 11:50 02/22/18 11:49 02/01/18 06:39 Insulin Detemir (Levemir) 18 units EVERY 12 HOURS SUBQ 01/23/18 09:00 02/19/18 08:59 02/01/18 09:40 Polyethylene Glycol (Miralax) 17 gm BEDTIME ORAL 01/26/18 21:00 02/19/18 20:59 Sennosides (Senokot) 1 tab DAILY ORAL 01/27/18 09:00 02/26/18 08:59 01/28/18 09:09 Vitamin A/Vitamin D (A & D Oint) 1 applic EVERY 12 HOURS TOPIC 01/21/18 21:00 02/19/18 20:59 02/01/18 09:39 Steve Griffin MD February 01, 2018 09:46
[2018-02-01 12:00] VITALS: BP 109/64
--- NOTE | 2018-02-01 14:59 | General Progress Note ---
Assessment/Plan Problem List: (1) Hyperkalemia ICD Codes: E87.5 - Hyperkalemia SNOMED: 23209958 (2) Acidosis ICD Codes: E87.2 - Acidosis SNOMED: 11214400 (3) CO2 retention ICD Codes: E87.2 - Acidosis SNOMED: 99061891 (4) Respiratory distress ICD Codes: R06.03 - Acute respiratory distress SNOMED: 462918194 (5) COPD (chronic obstructive pulmonary disease) ICD Codes: J44.9 - Chronic obstructive pulmonary disease, unspecified SNOMED: 70882825 (6) Hepatitis C ICD Codes: B19.20 - Unspecified viral hepatitis C without hepatic coma SNOMED: 00981354 (7) Acute and chronic respiratory failure ICD Codes: J96.20 - Acute and chronic respiratory failure, unspecified whether with hypoxia or hypercapnia SNOMED: 19126191 (8) Diabetes mellitus out of control ICD Codes: E11.65 - Type 2 diabetes mellitus with hyperglycemia SNOMED: 07968249, 977194943 (9) Tachycardia ICD Codes: R00.0 - Tachycardia, unspecified SNOMED: 5470577 (10) Hypertension ICD Codes: I10 - Essential (primary) hypertension SNOMED: 83684147 Status: doing well, stable, progressing Assessment/Plan encephalopathy psychosis due to [facility] [place] At[place] Subjective Date patient seen: February 01, 2018 Neurologic/Psychiatric: Reports: anxiety, depressed, emotional problems Allergies: Coded Allergies: Shrimp (Unverified Allergy, Unknown, 12/04/17) Subjective e pt was somewhat confused. Objective Last 24 Hour Vital Signs Date Time Temp Pulse Resp B/P (MAP) Pulse Ox O2 Delivery O2 Flow Rate FiO2 02/01/18 12:00 98.1 96 20 109/64 96 98.1 02/01/18 08:00 98.2 94 20 115/53 96 Nasal Cannula 2.0 98.2 02/01/18 04:00 98.9 95 18 115/67 100 98.9 02/01/18 00:00 97.7 97 18 106/54 99 97.7 02/01/18 00:00 Nasal Cannula 2.0 01/31/18 20:00 97.7 88 18 124/66 98 97.7 01/31/18 20:00 Nasal Cannula 2.0 01/31/18 19:47 Nasal Cannula 2.0 28 01/31/18 19:47 97 Nasal Cannula 2.0 28 01/31/18 16:00 97.7 89 20 112/53 99 97.7 Intake and Output 01/31/18 02/01/18 19:00 07:00 Intake Total 480 ml 260 ml Output Total 500 ml 400 ml Balance -20 ml -140 ml Intake Oral 480 ml 260 ml Output Urine Total 500 ml 400 ml # Bowel Movements 1 Height (Feet): 5 Height (Inches): 4.00 Weight (Pounds): 146 General Appearance: WD/WN, no apparent distress, alert Neurologic: oriented x 3, responsive, depressed affect Grisel Jay M.D. February 01, 2018 14:59
--- NOTE | 2018-02-01 15:35 | Pulmonology Progress Note ---
Assessment/Plan Problems: (1) Acute and chronic respiratory failure (2) COPD (chronic obstructive pulmonary disease) (3) Hepatitis C Assessment/Plan doing better no new events no new complains respiratory treatment still in search of a new place Subjective ROS Limited/Unobtainable: No Constitutional: Reports: no symptoms Allergies: Coded Allergies: Shrimp (Unverified Allergy, Unknown, 12/04/17) Objective Last 24 Hour Vital Signs Date Time Temp Pulse Resp B/P (MAP) Pulse Ox O2 Delivery O2 Flow Rate FiO2 02/01/18 12:00 98.1 96 20 109/64 96 98.1 02/01/18 08:00 98.2 94 20 115/53 96 Nasal Cannula 2.0 98.2 02/01/18 04:00 98.9 95 18 115/67 100 98.9 02/01/18 00:00 97.7 97 18 106/54 99 97.7 02/01/18 00:00 Nasal Cannula 2.0 01/31/18 20:00 97.7 88 18 124/66 98 97.7 01/31/18 20:00 Nasal Cannula 2.0 01/31/18 19:47 Nasal Cannula 2.0 28 01/31/18 19:47 97 Nasal Cannula 2.0 28 01/31/18 16:00 97.7 89 20 112/53 99 97.7 Intake and Output 01/31/18 02/01/18 19:00 07:00 Intake Total 480 ml 260 ml Output Total 500 ml 400 ml Balance -20 ml -140 ml Intake Oral 480 ml 260 ml Output Urine Total 500 ml 400 ml # Bowel Movements 1 Objective General Appearance: cachetic HEENT: normocephalic Respiratory/Chest: chest wall non-tender, lungs clear Breasts: no masses Cardiovascular: normal peripheral pulses, normal rate Abdomen: normal bowel sounds, soft, non tender Extremities: no cyanosis, no clubbing 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, no motor/sensory deficits Lymphatic: no neck adenopathy Current Medications Medications (Trade) Dose Ordered Sig/Hansel Route PRN Reason Start Time Stop Time Status Last Admin Dose Admin Acetaminophen (Tylenol) 650 mg Q6H PRN ORAL Mild Pain/Temp > 100.5 01/27/18 17:30 02/26/18 17:29 01/31/18 08:36 Clonidine HCl (Catapres Tab) 0.1 mg Q4H PRN ORAL sbp more than 160mmHg 01/21/18 21:00 02/20/18 20:59 Dextrose (Dextrose 50%) 25 ml STAT PRN IV Blood Sugar btwn 60-69 mg/dL 01/21/18 21:00 02/20/18 20:59 Dextrose (Dextrose 50%) 50 ml STAT PRN IV BS less than 60mg/dl 01/21/18 21:00 02/20/18 20:59 01/27/18 20:27 Docusate Sodium (Colace) 100 mg THREE TIMES A DAY ORAL 01/26/18 13:00 02/25/18 12:59 01/28/18 09:08 Insulin Aspart (NovoLOG) BEFORE MEALS AND HS SUBQ 01/21/18 21:00 02/19/18 16:29 02/01/18 11:30 Insulin Aspart (NovoLOG) 10 units NOVOTIAC SUBQ 01/23/18 11:50 02/22/18 11:49 02/01/18 11:28 Insulin Detemir (Levemir) 18 units EVERY 12 HOURS SUBQ 01/23/18 09:00 02/19/18 08:59 02/01/18 09:40 Polyethylene Glycol (Miralax) 17 gm BEDTIME ORAL 01/26/18 21:00 02/19/18 20:59 Sennosides (Senokot) 1 tab DAILY ORAL 01/27/18 09:00 02/26/18 08:59 01/28/18 09:09 Vitamin A/Vitamin D (A & D Oint) 1 applic EVERY 12 HOURS TOPIC 01/21/18 21:00 02/19/18 20:59 02/01/18 09:39 Leni Watts MD February 01, 2018 15:35
[2018-02-01 15:47] VITALS: BP 115/65
[2018-02-01 20:00] VITALS: BP 136/76
[2018-02-01] MEDS: Miralax 17gm pkt ORAL SCH (20:48)
--- NOTE | 2018-02-01 23:05 | Internal Med Progress Note ---
Subjective Physician Name Tone Fried Attending Physician Tone Fried MD Current Medications Medications (Trade) Dose Ordered Sig/Hansel Route PRN Reason Start Time Stop Time Status Last Admin Dose Admin Acetaminophen (Tylenol) 650 mg Q6H PRN ORAL Mild Pain/Temp > 100.5 01/27/18 17:30 02/26/18 17:29 01/31/18 08:36 Clonidine HCl (Catapres Tab) 0.1 mg Q4H PRN ORAL sbp more than 160mmHg 01/21/18 21:00 02/20/18 20:59 Dextrose (Dextrose 50%) 25 ml STAT PRN IV Blood Sugar btwn 60-69 mg/dL 01/21/18 21:00 02/20/18 20:59 Dextrose (Dextrose 50%) 50 ml STAT PRN IV BS less than 60mg/dl 01/21/18 21:00 02/20/18 20:59 01/27/18 20:27 Docusate Sodium (Colace) 100 mg THREE TIMES A DAY ORAL 01/26/18 13:00 02/25/18 12:59 01/28/18 09:08 Insulin Aspart (NovoLOG) BEFORE MEALS AND HS SUBQ 01/21/18 21:00 02/19/18 16:29 02/01/18 20:49 Insulin Aspart (NovoLOG) 10 units NOVOTIAC SUBQ 01/23/18 11:50 02/22/18 11:49 02/01/18 16:47 Insulin Detemir (Levemir) 18 units EVERY 12 HOURS SUBQ 01/23/18 09:00 02/19/18 08:59 02/01/18 20:50 Polyethylene Glycol (Miralax) 17 gm BEDTIME ORAL 01/26/18 21:00 02/19/18 20:59 Sennosides (Senokot) 1 tab DAILY ORAL 01/27/18 09:00 02/26/18 08:59 01/28/18 09:09 Vitamin A/Vitamin D (A & D Oint) 1 applic EVERY 12 HOURS TOPIC 01/21/18 21:00 02/19/18 20:59 02/01/18 20:50 Allergies: Coded Allergies: Shrimp (Unverified Allergy, Unknown, 12/04/17) Subjective awake, alert, responsive, NAD Objective Last Vital Signs Date Time Temp Pulse Resp B/P (MAP) Pulse Ox O2 Delivery O2 Flow Rate FiO2 02/01/18 20:00 Nasal Cannula 2.0 02/01/18 15:47 99.1 96 20 115/65 98 99.1 01/31/18 19:47 28 Intake and Output 01/31/18 02/01/18 19:00 07:00 Intake Total 480 ml 260 ml Output Total 500 ml 400 ml Balance -20 ml -140 ml Intake Oral 480 ml 260 ml Output Urine Total 500 ml 400 ml # Bowel Movements 1 Objective General: No acute distress, awake and alert HEENT: NCAT, sclera anicteric, PERRL, EOMI. Neck: Supple, no significant jugular venous distention, Old Trach scar. Lungs: Fair inspiratory effort, decrease air at bases, no Wheeze or Rales. Heart: Regular rate and rhythm, normal S1/S2, no murmur Abdomen: soft, nontender, nondistended. Normoactive bowel sounds. / Rectal: Refused and deferred. Extremities: No Cyanosis , clubbing or edema. Muscle atrophy LE's Neuro: A&O x 3, Able to move upper extremities, Paraplegia. Skin: warm, no rashes Assessment/Plan Assessment/Plan Acute hypoxic respiratory failure Acute COPD exacerbation- transaminitis improving Hx of Hep C hx of trach s/p removal DM Type 2 HTN Plan: AbX: monitor off O2 Via NC Neb Tx F/U with Dr. Watts recommendation DC Planning , waiting for placement Tone Fried MD February 01, 2018 23:05
[2018-02-02] VITALS: BP 124/53
[2018-02-02] MEDS: NovoLOG Insulin Flexpen SUBQ SCH ×7 (06:36→21:02)
--- NOTE | 2018-02-02 06:50 | General Progress Note ---
Assessment/Plan Problem List: (1) Diabetes mellitus out of control ICD Codes: E11.65 - Type 2 diabetes mellitus with hyperglycemia SNOMED: 35240778, 258904977 (2) COPD (chronic obstructive pulmonary disease) ICD Codes: J44.9 - Chronic obstructive pulmonary disease, unspecified SNOMED: 57456460 (3) Acute and chronic respiratory failure ICD Codes: J96.20 - Acute and chronic respiratory failure, unspecified whether with hypoxia or hypercapnia SNOMED: 09857255 Assessment/Plan continue Levemir 18 units bid continue Novolog to 10 units ac tid continue NISS Subjective ROS Limited/Unobtainable: Yes Allergies: Coded Allergies: Shrimp (Unverified Allergy, Unknown, 12/04/17) Subjective events noted - interval notes reviewed Objective Last 24 Hour Vital Signs Date Time Temp Pulse Resp B/P (MAP) Pulse Ox O2 Delivery O2 Flow Rate FiO2 02/02/18 04:00 97.2 95 18 99 Nasal Cannula 2.0 97.2 02/02/18 00:00 98.1 89 17 124/53 100 Nasal Cannula 2.0 98.1 02/01/18 20:00 97.8 92 16 136/76 97 Nasal Cannula 2.0 97.8 02/01/18 15:47 99.1 96 20 115/65 98 99.1 02/01/18 12:00 98.1 96 20 109/64 96 98.1 02/01/18 08:00 98.2 94 20 115/53 96 Nasal Cannula 2.0 98.2 Intake and Output 02/01/18 02/02/18 19:00 07:00 Intake Total 600 ml 360 ml Output Total 600 ml Balance 600 ml -240 ml Intake Oral 600 ml 360 ml Output Urine Total 600 ml # Voids 3 # Bowel Movements 2 Height (Feet): 5 Height (Inches): 4.00 Weight (Pounds): 147 General Appearance: no apparent distress Neck: normal alignment Cardiovascular: normal rate Respiratory/Chest: decreased breath sounds Abdomen: normal bowel sounds Edema: no edema noted Arm (L), no edema noted Arm (R), no edema noted Leg (L), no edema noted Leg (R), no edema noted Pedal (L), no edema noted Pedal (R), no edema noted Generalized Objective Current Medications Medications (Trade) Dose Ordered Sig/Hansel Route PRN Reason Start Time Stop Time Status Last Admin Dose Admin Acetaminophen (Tylenol) 650 mg Q6H PRN ORAL Mild Pain/Temp > 100.5 01/27/18 17:30 02/26/18 17:29 01/31/18 08:36 Clonidine HCl (Catapres Tab) 0.1 mg Q4H PRN ORAL sbp more than 160mmHg 01/21/18 21:00 02/20/18 20:59 Dextrose (Dextrose 50%) 25 ml STAT PRN IV Blood Sugar btwn 60-69 mg/dL 01/21/18 21:00 02/20/18 20:59 Dextrose (Dextrose 50%) 50 ml STAT PRN IV BS less than 60mg/dl 01/21/18 21:00 02/20/18 20:59 01/27/18 20:27 Docusate Sodium (Colace) 100 mg THREE TIMES A DAY ORAL 01/26/18 13:00 02/25/18 12:59 01/28/18 09:08 Insulin Aspart (NovoLOG) BEFORE MEALS AND HS SUBQ 01/21/18 21:00 02/19/18 16:29 02/02/18 06:36 Insulin Aspart (NovoLOG) 10 units NOVOTIAC SUBQ 01/23/18 11:50 02/22/18 11:49 02/02/18 06:37 Insulin Detemir (Levemir) 18 units EVERY 12 HOURS SUBQ 01/23/18 09:00 02/19/18 08:59 02/01/18 20:50 Polyethylene Glycol (Miralax) 17 gm BEDTIME ORAL 01/26/18 21:00 02/19/18 20:59 Sennosides (Senokot) 1 tab DAILY ORAL 01/27/18 09:00 02/26/18 08:59 01/28/18 09:09 Vitamin A/Vitamin D (A & D Oint) 1 applic EVERY 12 HOURS TOPIC 01/21/18 21:00 02/19/18 20:59 02/01/18 20:50 Item Value Date Time Bedside Blood Glucose 155 mg/dl H 02/02/18 0637 Bedside Blood Glucose 186 mg/dl H 02/01/18 2117 Bedside Blood Glucose 115 mg/dl 02/01/18 1647 Bedside Blood Glucose 249 mg/dl H 02/01/18 1130 Bedside Blood Glucose 216 mg/dl H 02/01/18 0940 FEMI MCKEON February 02, 2018 06:49
[2018-02-02 08:00] VITALS: BP 134/69
[2018-02-02] MEDS: Docusate 100mg cap ORAL SCH ×3 (08:59→17:13)
[2018-02-02] MEDS: Sennosides 8.6mg ORAL SCH (09:00)
[2018-02-02] MEDS: Vitamin A&D Oint 2oz Tube TOPIC SCH ×2 (09:01→21:03)
[2018-02-02] MEDS: Levemir Flexpen SUBQ SCH ×2 (09:03→21:00)
--- NOTE | 2018-02-02 11:37 | General Progress Note ---
Assessment/Plan Status: stable Assessment/Plan #. Thrombocytopenia, secondary to hepatitis, early liver disease, Hep A ++, C ++ , baseline appears to be 100-200k --> platelet count has improved, baseline >100k --> Gi to follow as outpatient #. Anemia due to underlying chronic disease. Mild at this time. --> Continue to closely monitor. Has been stable. --> Blood transfusion not required unless symptomatic or hgb <7 --> Reviewed anemia workup. Iron 110, TIBC 230, Ferritin 90 and 140, B12 821, Folate 6.6, TSH 1.4 --> hgb goal >7 #. Leukopenia, likely secondary to hepatitis C, currently improved. --> No leukocytosis is noted. --> Resolved at this time. #. Tachycardia. --> Improved. Refer to cardiology note. #. Acute on hypoxic respiratory failure --> status post tracheostomy, improved. #. Hepatitis C. --> Elevated liver enzymes. Management as an outpatient. --> Appreciate Infectious Disease service evaluation as well as GI recs Subjective Date patient seen: February 01, 2018 Allergies: Coded Allergies: Shrimp (Unverified Allergy, Unknown, 12/04/17) All Systems: reviewed and negative except above Subjective Patient is verbally responsive and resting in bed. Plts cont to improve. Objective Last 24 Hour Vital Signs Date Time Temp Pulse Resp B/P (MAP) Pulse Ox O2 Delivery O2 Flow Rate FiO2 02/02/18 08:00 Nasal Cannula 2.0 02/02/18 08:00 98.2 60 19 134/69 100 98.2 02/02/18 04:00 97.2 95 18 99 Nasal Cannula 2.0 97.2 02/02/18 00:00 98.1 89 17 124/53 100 Nasal Cannula 2.0 98.1 02/01/18 20:00 97.8 92 16 136/76 97 Nasal Cannula 2.0 97.8 02/01/18 15:47 99.1 96 20 115/65 98 99.1 02/01/18 12:00 98.1 96 20 109/64 96 98.1 Intake and Output 02/01/18 02/02/18 19:00 07:00 Intake Total 600 ml 360 ml Output Total 600 ml Balance 600 ml -240 ml Intake Oral 600 ml 360 ml Output Urine Total 600 ml # Voids 3 # Bowel Movements 2 Height (Feet): 5 Height (Inches): 4.00 Weight (Pounds): 147 General Appearance: no apparent distress EENT: PERRL/EOMI Neck: non-tender, supple Cardiovascular: normal peripheral pulses Respiratory/Chest: chest wall non-tender, normal breath sounds, no respiratory distress Anuj Alfaro MD February 02, 2018 11:37
--- NOTE | 2018-02-02 11:43 | Infectious Diseases Prog Note ---
Assessment/Plan Assessment/Plan A: COPD exacerbation, s/p -CXR 01/21: Mild pulmonary vascular congestion may be present. Correlate clinically. Left pleural effusion suspected -CXR: No acute disease Afebrile, no leukocytosis Recent acute hypoxic failure and PNA 11/2015 -sp cx 12/04: E.coli (davila S), P. mirabilis (davila S) Influenza sc : Neg transaminitis , SP Chronic Hep C, untreated VL 3.8 m,illions Hep panel : A Imm ; B not immune HIV Neg Acute hypoxic resp failure SP hx of trach s/p removal COPD Dm2 HTN [facility] resident Plan: - Monitor pt off of AB Rx -12/24 SP Levaquin # 5 /5 -12/10 SP Cefepime #7 -12/06 SP Vanco #3 -Monitor CBC/BMP, temperatures -aspiration precautions Hem fup, re TCP needs treatment of Hep C as outpatient needs Hep B vaccine as outpatient DC Planning , waiting for placement Subjective Allergies: Coded Allergies: Shrimp (Unverified Allergy, Unknown, 12/04/17) Subjective comfortable Objective Vital Signs Last 24 Hour Vital Signs Date Time Temp Pulse Resp B/P (MAP) Pulse Ox O2 Delivery O2 Flow Rate FiO2 02/02/18 08:00 Nasal Cannula 2.0 02/02/18 08:00 98.2 60 19 134/69 100 98.2 02/02/18 04:00 97.2 95 18 99 Nasal Cannula 2.0 97.2 02/02/18 00:00 98.1 89 17 124/53 100 Nasal Cannula 2.0 98.1 02/01/18 20:00 97.8 92 16 136/76 97 Nasal Cannula 2.0 97.8 02/01/18 15:47 99.1 96 20 115/65 98 99.1 02/01/18 12:00 98.1 96 20 109/64 96 98.1 Height (Feet): 5 Height (Inches): 4.00 Weight (Pounds): 147 HEENT: mucous membranes moist Respiratory/Chest: normal breath sounds Cardiovascular: regularly irregular Abdomen: no organomegaly Current Medications Medications (Trade) Dose Ordered Sig/Hansel Route PRN Reason Start Time Stop Time Status Last Admin Dose Admin Acetaminophen (Tylenol) 650 mg Q6H PRN ORAL Mild Pain/Temp > 100.5 01/27/18 17:30 02/26/18 17:29 01/31/18 08:36 Clonidine HCl (Catapres Tab) 0.1 mg Q4H PRN ORAL sbp more than 160mmHg 01/21/18 21:00 02/20/18 20:59 Dextrose (Dextrose 50%) 25 ml STAT PRN IV Blood Sugar btwn 60-69 mg/dL 01/21/18 21:00 02/20/18 20:59 Dextrose (Dextrose 50%) 50 ml STAT PRN IV BS less than 60mg/dl 01/21/18 21:00 02/20/18 20:59 01/27/18 20:27 Docusate Sodium (Colace) 100 mg THREE TIMES A DAY ORAL 01/26/18 13:00 02/25/18 12:59 01/28/18 09:08 Insulin Aspart (NovoLOG) BEFORE MEALS AND HS SUBQ 01/21/18 21:00 02/19/18 16:29 02/02/18 06:36 Insulin Aspart (NovoLOG) 10 units NOVOTIAC SUBQ 01/23/18 11:50 02/22/18 11:49 02/02/18 06:37 Insulin Detemir (Levemir) 18 units EVERY 12 HOURS SUBQ 01/23/18 09:00 02/19/18 08:59 02/02/18 09:03 Polyethylene Glycol (Miralax) 17 gm BEDTIME ORAL 01/26/18 21:00 02/19/18 20:59 Sennosides (Senokot) 1 tab DAILY ORAL 01/27/18 09:00 02/26/18 08:59 01/28/18 09:09 Vitamin A/Vitamin D (A & D Oint) 1 applic EVERY 12 HOURS TOPIC 01/21/18 21:00 02/19/18 20:59 02/02/18 09:01 Steve Griffin MD February 02, 2018 11:43
[2018-02-02 12:00] VITALS: BP 110/65
--- NOTE | 2018-02-02 14:20 | Internal Med Progress Note ---
Subjective Date of Service: February 02, 2018 Physician Name Dwaine Stevenson Attending Physician Tone Fried MD Current Medications Medications (Trade) Dose Ordered Sig/Hansel Route PRN Reason Start Time Stop Time Status Last Admin Dose Admin Acetaminophen (Tylenol) 650 mg Q6H PRN ORAL Mild Pain/Temp > 100.5 01/27/18 17:30 02/26/18 17:29 01/31/18 08:36 Clonidine HCl (Catapres Tab) 0.1 mg Q4H PRN ORAL sbp more than 160mmHg 01/21/18 21:00 02/20/18 20:59 Dextrose (Dextrose 50%) 25 ml STAT PRN IV Blood Sugar btwn 60-69 mg/dL 01/21/18 21:00 02/20/18 20:59 Dextrose (Dextrose 50%) 50 ml STAT PRN IV BS less than 60mg/dl 01/21/18 21:00 02/20/18 20:59 01/27/18 20:27 Docusate Sodium (Colace) 100 mg THREE TIMES A DAY ORAL 01/26/18 13:00 02/25/18 12:59 01/28/18 09:08 Insulin Aspart (NovoLOG) BEFORE MEALS AND HS SUBQ 01/21/18 21:00 02/19/18 16:29 02/02/18 11:48 Insulin Aspart (NovoLOG) 10 units NOVOTIAC SUBQ 01/23/18 11:50 02/22/18 11:49 02/02/18 11:47 Insulin Detemir (Levemir) 18 units EVERY 12 HOURS SUBQ 01/23/18 09:00 02/19/18 08:59 02/02/18 09:03 Polyethylene Glycol (Miralax) 17 gm BEDTIME ORAL 01/26/18 21:00 02/19/18 20:59 Sennosides (Senokot) 1 tab DAILY ORAL 01/27/18 09:00 02/26/18 08:59 01/28/18 09:09 Vitamin A/Vitamin D (A & D Oint) 1 applic EVERY 12 HOURS TOPIC 01/21/18 21:00 02/19/18 20:59 02/02/18 09:01 Allergies: Coded Allergies: Shrimp (Unverified Allergy, Unknown, 12/04/17) ROS Limited/Unobtainable: No Constitutional: Reports: no symptoms HEENT: Reports: no symptoms Cardiovascular: Reports: no symptoms Respiratory: Reports: shortness of breath Gastrointestinal/Abdominal: Reports: no symptoms Genitourinary: Reports: no symptoms Neurologic/Psychiatric: Reports: no symptoms Subjective 67 YO F admitted with respiratory failure. Now acute COPD exacerbation. Cover for Juan Pablo Fried. Objective Last Vital Signs Date Time Temp Pulse Resp B/P (MAP) Pulse Ox O2 Delivery O2 Flow Rate FiO2 02/02/18 12:00 97.2 18 110/65 100 Nasal Cannula 2.0 97.2 02/02/18 12:00 72 01/31/18 19:47 28 Intake and Output 02/01/18 02/02/18 19:00 07:00 Intake Total 600 ml 360 ml Output Total 600 ml Balance 600 ml -240 ml Intake Oral 600 ml 360 ml Output Urine Total 600 ml # Voids 3 # Bowel Movements 2 Objective General Appearance: WD/WN, no apparent distress, alert EENT: PERRL/EOMI, normal ENT inspection Neck: non-tender, normal alignment, supple Cardiovascular: tachycardia; normal peripheral pulses,regular rhythm, no gallop /murmur, no JVD Respiratory/Chest: respiratory distress, crackles/rales, rhonchi - bilaterally , expiratory wheezing Abdomen: normal bowel sounds, non tender, soft, no organomegaly, no mass Edema: trace edema 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 (3) HTN (hypertension) Assessment & Plan: Continue norvasc (4) Respiratory distress (5) COPD (chronic obstructive pulmonary disease) Assessment & Plan: Continue duoneb prn. See pulmonary note. Off antibiotic per ID (6) Hepatitis C (7) Tachycardia Assessment & Plan: Improved; see cardiology note Assessment/Plan Discharge planning: [facility] nursing [facility] when bed available. Dwaine Stevenson MD February 02, 2018 14:20
[2018-02-02 16:00] VITALS: BP 116/70
[2018-02-02 19:35] VITALS: BP 114/66
[2018-02-02] MEDS: Miralax 17gm pkt ORAL SCH (20:59)
--- NOTE | 2018-02-02 23:03 | General Progress Note ---
Assessment/Plan Problem List: (1) Hyperkalemia ICD Codes: E87.5 - Hyperkalemia SNOMED: 50080447 (2) Acidosis ICD Codes: E87.2 - Acidosis SNOMED: 97593844 (3) CO2 retention ICD Codes: E87.2 - Acidosis SNOMED: 90991516 (4) Respiratory distress ICD Codes: R06.03 - Acute respiratory distress SNOMED: 781115358 (5) COPD (chronic obstructive pulmonary disease) ICD Codes: J44.9 - Chronic obstructive pulmonary disease, unspecified SNOMED: 72720703 (6) Hepatitis C ICD Codes: B19.20 - Unspecified viral hepatitis C without hepatic coma SNOMED: 38915665 (7) Acute and chronic respiratory failure ICD Codes: J96.20 - Acute and chronic respiratory failure, unspecified whether with hypoxia or hypercapnia SNOMED: 26538784 (8) Diabetes mellitus out of control ICD Codes: E11.65 - Type 2 diabetes mellitus with hyperglycemia SNOMED: 94535191, 183863263 (9) Tachycardia ICD Codes: R00.0 - Tachycardia, unspecified SNOMED: 5016485 (10) Hypertension ICD Codes: I10 - Essential (primary) hypertension SNOMED: 49089647 Assessment/Plan 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 Objective Last 24 Hour Vital Signs Date Time Temp Pulse Resp B/P (MAP) Pulse Ox O2 Delivery O2 Flow Rate FiO2 02/02/18 19:35 98.1 58 20 114/66 99 Nasal Cannula 98.1 02/02/18 19:35 Nasal Cannula 2.0 02/02/18 16:00 Nasal Cannula 2.0 02/02/18 16:00 97.9 97 20 116/70 98 97.9 02/02/18 12:00 97.2 18 110/65 100 Nasal Cannula 2.0 97.2 02/02/18 12:00 97.2 72 18 110/65 100 97.2 02/02/18 08:00 Nasal Cannula 2.0 02/02/18 08:00 98.2 60 19 134/69 100 98.2 02/02/18 04:00 97.2 95 18 99 Nasal Cannula 2.0 97.2 02/02/18 00:00 98.1 89 17 124/53 100 Nasal Cannula 2.0 98.1 Intake and Output 02/01/18 02/02/18 19:00 07:00 Intake Total 600 ml 360 ml Output Total 600 ml Balance 600 ml -240 ml Intake Oral 600 ml 360 ml Output Urine Total 600 ml # Voids 3 # Bowel Movements 2 Height (Feet): 5 Height (Inches): 4.00 Weight (Pounds): 147 Grisel Jay M.D. February 02, 2018 23:03
[2018-02-02 23:59] VITALS: BP 111/55
[2018-02-03 04:08] VITALS: BP 99/61
[2018-02-03] MEDS: NovoLOG Insulin Flexpen SUBQ SCH ×7 (06:53→21:00)
--- NOTE | 2018-02-03 07:09 | General Progress Note ---
Assessment/Plan Problem List: (1) Diabetes mellitus out of control ICD Codes: E11.65 - Type 2 diabetes mellitus with hyperglycemia SNOMED: 14062444, 397454654 (2) COPD (chronic obstructive pulmonary disease) ICD Codes: J44.9 - Chronic obstructive pulmonary disease, unspecified SNOMED: 92633416 (3) Acute and chronic respiratory failure ICD Codes: J96.20 - Acute and chronic respiratory failure, unspecified whether with hypoxia or hypercapnia SNOMED: 38224583 Assessment/Plan continue Levemir 18 units bid continue Novolog to 10 units ac tid continue NISS Subjective Allergies: Coded Allergies: Shrimp (Unverified Allergy, Unknown, 12/04/17) All Systems: reviewed and negative except above Subjective events noted - interval notes reviewed Objective Last 24 Hour Vital Signs Date Time Temp Pulse Resp B/P (MAP) Pulse Ox O2 Delivery O2 Flow Rate FiO2 02/03/18 04:08 96.8 99 20 99/61 97 Room Air 96.8 02/02/18 23:59 98.2 20 20 111/55 98 Room Air 98.2 02/02/18 19:35 98.1 58 20 114/66 99 Nasal Cannula 98.1 02/02/18 19:35 Nasal Cannula 2.0 02/02/18 16:00 Nasal Cannula 2.0 02/02/18 16:00 97.9 97 20 116/70 98 97.9 02/02/18 12:00 97.2 18 110/65 100 Nasal Cannula 2.0 97.2 02/02/18 12:00 97.2 72 18 110/65 100 97.2 02/02/18 08:00 Nasal Cannula 2.0 02/02/18 08:00 98.2 60 19 134/69 100 98.2 Intake and Output 02/02/18 02/03/18 19:00 07:00 Intake Total 800 ml Balance 800 ml Intake Oral 800 ml # Voids 3 2 # Bowel Movements 1 Height (Feet): 5 Height (Inches): 4.00 Weight (Pounds): 147 General Appearance: no apparent distress EENT: pale conjunctivae Neck: normal alignment Cardiovascular: normal rate Respiratory/Chest: decreased breath sounds Pelvis: normal external exam Edema: no edema noted Arm (L), no edema noted Arm (R), no edema noted Leg (L), no edema noted Leg (R), no edema noted Pedal (L), no edema noted Pedal (R), no edema noted Generalized Objective Current Medications Medications (Trade) Dose Ordered Sig/Hansel Route PRN Reason Start Time Stop Time Status Last Admin Dose Admin Acetaminophen (Tylenol) 650 mg Q6H PRN ORAL Mild Pain/Temp > 100.5 01/27/18 17:30 02/26/18 17:29 01/31/18 08:36 Clonidine HCl (Catapres Tab) 0.1 mg Q4H PRN ORAL sbp more than 160mmHg 01/21/18 21:00 02/20/18 20:59 Dextrose (Dextrose 50%) 25 ml STAT PRN IV Blood Sugar btwn 60-69 mg/dL 01/21/18 21:00 02/20/18 20:59 Dextrose (Dextrose 50%) 50 ml STAT PRN IV BS less than 60mg/dl 01/21/18 21:00 02/20/18 20:59 01/27/18 20:27 Docusate Sodium (Colace) 100 mg THREE TIMES A DAY ORAL 01/26/18 13:00 02/25/18 12:59 01/28/18 09:08 Insulin Aspart (NovoLOG) BEFORE MEALS AND HS SUBQ 01/21/18 21:00 02/19/18 16:29 02/03/18 06:53 Insulin Aspart (NovoLOG) 10 units NOVOTIAC SUBQ 01/23/18 11:50 02/22/18 11:49 02/03/18 06:54 Insulin Detemir (Levemir) 18 units EVERY 12 HOURS SUBQ 01/23/18 09:00 02/19/18 08:59 02/02/18 09:03 Polyethylene Glycol (Miralax) 17 gm BEDTIME ORAL 01/26/18 21:00 02/19/18 20:59 Sennosides (Senokot) 1 tab DAILY ORAL 01/27/18 09:00 02/26/18 08:59 01/28/18 09:09 Vitamin A/Vitamin D (A & D Oint) 1 applic EVERY 12 HOURS TOPIC 01/21/18 21:00 02/19/18 20:59 02/02/18 21:03 Item Value Date Time Bedside Blood Glucose 142 mg/dl H 02/03/18 0654 Bedside Blood Glucose 165 mg/dl H 02/02/18 2102 Bedside Blood Glucose 180 mg/dl H 02/02/18 1653 Bedside Blood Glucose 248 mg/dl H 02/02/18 1148 FEMI MCKEON February 03, 2018 07:09
[2018-02-03 08:00] VITALS: BP 114/71
[2018-02-03] MEDS: Sennosides 8.6mg ORAL SCH (09:00)
[2018-02-03] MEDS: Docusate 100mg cap ORAL SCH ×3 (09:00→17:43)
[2018-02-03] MEDS: Vitamin A&D Oint 2oz Tube TOPIC SCH ×2 (09:01→21:11)
[2018-02-03] MEDS: Levemir Flexpen SUBQ SCH ×2 (09:03→21:00)
[2018-02-03 12:00] VITALS: BP 127/69
--- NOTE | 2018-02-03 12:27 | General Progress Note ---
Assessment/Plan Assessment/Plan #. Thrombocytopenia, secondary to hepatitis, early liver disease, Hep A ++, C ++ , baseline appears to be 100-200k --> platelet count has improved, baseline >100k --> Gi to follow as outpatient #. Anemia due to underlying chronic disease. Mild at this time. --> Continue to closely monitor. Has been stable. --> Blood transfusion not required unless symptomatic or hgb <7 --> Reviewed anemia workup. Iron 110, TIBC 230, Ferritin 90 and 140, B12 821, Folate 6.6, TSH 1.4 --> hgb goal >7 #. Leukopenia, likely secondary to hepatitis C, currently improved. --> No leukocytosis is noted. --> Resolved at this time. #. Tachycardia. --> Improved. Refer to cardiology note. #. Acute on hypoxic respiratory failure --> status post tracheostomy, improved. #. Hepatitis C. --> Elevated liver enzymes. Management as an outpatient. --> Appreciate ID service evaluation as well as GI recs Subjective Date patient seen: February 02, 2018 Constitutional: Reports: no symptoms HEENT: Reports: no symptoms Cardiovascular: Reports: no symptoms Respiratory: Reports: no symptoms Gastrointestinal/Abdominal: Reports: no symptoms Genitourinary: Reports: no symptoms Neurologic/Psychiatric: Reports: no symptoms Endocrine: Reports: no symptoms Hematologic/Lymphatic: Reports: anemia Allergies: Coded Allergies: Shrimp (Unverified Allergy, Unknown, 12/04/17) Subjective Patient is verbally responsive and resting in bed. Objective Last 24 Hour Vital Signs Date Time Temp Pulse Resp B/P (MAP) Pulse Ox O2 Delivery O2 Flow Rate FiO2 02/03/18 12:00 97.8 103 18 127/69 97 Nasal Cannula 2.0 97.8 02/03/18 08:00 97.3 81 18 114/71 99 Room Air 2.0 97.3 02/03/18 04:08 96.8 99 20 99/61 97 Room Air 96.8 02/02/18 23:59 98.2 20 20 111/55 98 Room Air 98.2 02/02/18 19:35 98.1 58 20 114/66 99 Nasal Cannula 98.1 02/02/18 19:35 Nasal Cannula 2.0 02/02/18 16:00 Nasal Cannula 2.0 02/02/18 16:00 97.9 97 20 116/70 98 97.9 Intake and Output 02/02/18 02/03/18 19:00 07:00 Intake Total 800 ml Balance 800 ml Intake Oral 800 ml # Voids 3 2 # Bowel Movements 1 Height (Feet): 5 Height (Inches): 4.00 Weight (Pounds): 147 General Appearance: alert EENT: TMs normal Neck: normal alignment Cardiovascular: normal rate Respiratory/Chest: lungs clear Abdomen: non tender Extremities: non-tender Edema: 1+ Leg (L), 1+ Leg (R) Edema: mild edema Neurologic: alert Anuj Alfaro MD February 03, 2018 12:27
--- NOTE | 2018-02-03 13:54 | Internal Med Progress Note ---
Subjective Date of Service: February 03, 2018 Physician Name Dwaine Stevenson Attending Physician Tone Fried MD Current Medications Medications (Trade) Dose Ordered Sig/Hansel Route PRN Reason Start Time Stop Time Status Last Admin Dose Admin Acetaminophen (Tylenol) 650 mg Q6H PRN ORAL Mild Pain/Temp > 100.5 01/27/18 17:30 02/26/18 17:29 01/31/18 08:36 Clonidine HCl (Catapres Tab) 0.1 mg Q4H PRN ORAL sbp more than 160mmHg 01/21/18 21:00 02/20/18 20:59 Dextrose (Dextrose 50%) 25 ml STAT PRN IV Blood Sugar btwn 60-69 mg/dL 01/21/18 21:00 02/20/18 20:59 Dextrose (Dextrose 50%) 50 ml STAT PRN IV BS less than 60mg/dl 01/21/18 21:00 02/20/18 20:59 01/27/18 20:27 Docusate Sodium (Colace) 100 mg THREE TIMES A DAY ORAL 01/26/18 13:00 02/25/18 12:59 01/28/18 09:08 Insulin Aspart (NovoLOG) BEFORE MEALS AND HS SUBQ 01/21/18 21:00 02/19/18 16:29 02/03/18 11:44 Insulin Aspart (NovoLOG) 10 units NOVOTIAC SUBQ 01/23/18 11:50 02/22/18 11:49 02/03/18 06:54 Insulin Detemir (Levemir) 18 units EVERY 12 HOURS SUBQ 01/23/18 09:00 02/19/18 08:59 02/03/18 09:03 Polyethylene Glycol (Miralax) 17 gm BEDTIME ORAL 01/26/18 21:00 02/19/18 20:59 Sennosides (Senokot) 1 tab DAILY ORAL 01/27/18 09:00 02/26/18 08:59 01/28/18 09:09 Vitamin A/Vitamin D (A & D Oint) 1 applic EVERY 12 HOURS TOPIC 01/21/18 21:00 02/19/18 20:59 02/03/18 09:01 Allergies: Coded Allergies: Shrimp (Unverified Allergy, Unknown, 12/04/17) ROS Limited/Unobtainable: No Constitutional: Reports: no symptoms HEENT: Reports: no symptoms Cardiovascular: Reports: no symptoms Respiratory: Reports: shortness of breath Gastrointestinal/Abdominal: Reports: no symptoms Genitourinary: Reports: no symptoms Neurologic/Psychiatric: Reports: no symptoms Subjective 67 YO F admitted with respiratory failure. Now acute COPD exacerbation. Cover for Juan Pablo Fried. Objective Last Vital Signs Date Time Temp Pulse Resp B/P (MAP) Pulse Ox O2 Delivery O2 Flow Rate FiO2 02/03/18 12:00 97.8 103 18 127/69 97 Nasal Cannula 2.0 97.8 01/31/18 19:47 28 Intake and Output 02/02/18 02/03/18 19:00 07:00 Intake Total 800 ml Balance 800 ml Intake Oral 800 ml # Voids 3 2 # Bowel Movements 1 Objective General Appearance: WD/WN, no apparent distress, alert EENT: PERRL/EOMI, normal ENT inspection Neck: non-tender, normal alignment, supple Cardiovascular: tachycardia; normal peripheral pulses,regular rhythm, no gallop /murmur, no JVD Respiratory/Chest: respiratory distress, crackles/rales, rhonchi - bilaterally , expiratory wheezing Abdomen: normal bowel sounds, non tender, soft, no organomegaly, no mass Edema: trace edema 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 (3) HTN (hypertension) Assessment & Plan: Continue norvasc (4) Respiratory distress (5) COPD (chronic obstructive pulmonary disease) Assessment & Plan: Continue duoneb prn. See pulmonary note. Off antibiotic per ID (6) Hepatitis C (7) Tachycardia Assessment & Plan: Improved; see cardiology note Status: stable Assessment/Plan Discharge planning: [facility] when bed available. Dwaine Stevenson MD February 03, 2018 13:54
[2018-02-03] MEDS ORDERED: Dicyclomine 10mg Cap ORAL PRN (14:30)
[2018-02-03 16:00] VITALS: BP_SYST 118; BP_SYST 122; BP_DIAS 49; BP_DIAS 57
--- NOTE | 2018-02-03 18:43 | General Progress Note ---
Assessment/Plan Status: stable Assessment/Plan #. Thrombocytopenia, secondary to hepatitis, early liver disease, Hep A ++, C ++ , baseline appears to be 100-200k --> platelet count has improved, baseline >100k --> Gi to follow as outpatient #. Anemia due to underlying chronic disease. Mild at this time. --> Continue to closely monitor. Has been stable. --> Blood transfusion not required unless symptomatic or hgb <7 --> Reviewed anemia workup. Iron 110, TIBC 230, Ferritin 90 and 140, B12 821, Folate 6.6, TSH 1.4 --> hgb goal >7 #. Leukopenia, likely secondary to hepatitis C, currently improved. --> No leukocytosis is noted. --> Resolved at this time. #. Tachycardia. --> Improved. Refer to cardiology note. #. Acute on hypoxic respiratory failure --> status post tracheostomy, improved. #. Hepatitis C. --> Elevated liver enzymes. Management as an outpatient. --> Appreciate ID service evaluation as well as GI recs Subjective Date patient seen: February 03, 2018 Allergies: Coded Allergies: Shrimp (Unverified Allergy, Unknown, 12/04/17) All Systems: reviewed and negative except above Subjective Patient is awake and resting in bed. No s/s of acute medical distress Objective Last 24 Hour Vital Signs Date Time Temp Pulse Resp B/P (MAP) Pulse Ox O2 Delivery O2 Flow Rate FiO2 02/03/18 16:00 98.2 97 18 118/57 94 Nasal Cannula 2.0 98.2 02/03/18 12:00 97.8 103 18 127/69 97 Nasal Cannula 2.0 97.8 02/03/18 08:00 97.3 81 18 114/71 99 Room Air 2.0 97.3 02/03/18 04:08 96.8 99 20 99/61 97 Room Air 96.8 02/02/18 23:59 98.2 20 20 111/55 98 Room Air 98.2 02/02/18 19:35 98.1 58 20 114/66 99 Nasal Cannula 98.1 02/02/18 19:35 Nasal Cannula 2.0 Intake and Output 02/02/18 02/03/18 19:00 07:00 Intake Total 800 ml Balance 800 ml Intake Oral 800 ml # Voids 3 2 # Bowel Movements 1 Height (Feet): 5 Height (Inches): 4.00 Weight (Pounds): 147 General Appearance: no apparent distress EENT: normal ENT inspection Neck: supple Cardiovascular: normal rate Respiratory/Chest: lungs clear Anuj Alfaro MD February 03, 2018 18:43
[2018-02-03 19:34] VITALS: BP 112/64
[2018-02-03] MEDS: Miralax 17gm pkt ORAL SCH (21:00)
[2018-02-04] VITALS: BP 110/64
[2018-02-04 04:00] VITALS: BP 127/67
--- NOTE | 2018-02-04 06:30 | General Progress Note ---
Assessment/Plan Problem List: (1) Diabetes mellitus out of control ICD Codes: E11.65 - Type 2 diabetes mellitus with hyperglycemia SNOMED: 68146390, 785852923 (2) COPD (chronic obstructive pulmonary disease) ICD Codes: J44.9 - Chronic obstructive pulmonary disease, unspecified SNOMED: 15846656 (3) Acute and chronic respiratory failure ICD Codes: J96.20 - Acute and chronic respiratory failure, unspecified whether with hypoxia or hypercapnia SNOMED: 87025177 Assessment/Plan continue Levemir 18 units bid continue Novolog to 10 units ac tid continue NISS Subjective Allergies: Coded Allergies: Shrimp (Unverified Allergy, Unknown, 12/04/17) All Systems: reviewed and negative except above Subjective events noted - interval notes reviewed Objective Last 24 Hour Vital Signs Date Time Temp Pulse Resp B/P (MAP) Pulse Ox O2 Delivery O2 Flow Rate FiO2 02/04/18 04:00 97.7 98 20 127/67 96 97.7 02/04/18 04:00 Nasal Cannula 2.0 02/04/18 00:00 97.5 97 20 110/64 97 Nasal Cannula 2.0 97.5 02/03/18 21:01 97 Nasal Cannula 2.0 28 02/03/18 21:01 Nasal Cannula 2.0 28 02/03/18 19:34 98.1 86 20 112/64 97 Room Air 98.1 02/03/18 19:34 Nasal Cannula 2.0 02/03/18 16:00 98.2 97 18 118/57 94 Nasal Cannula 2.0 98.2 02/03/18 12:00 97.8 103 18 127/69 97 Nasal Cannula 2.0 97.8 02/03/18 08:00 97.3 81 18 114/71 99 Room Air 2.0 97.3 Intake and Output 02/03/18 02/04/18 19:00 07:00 Intake Total 480 ml 120 ml Output Total 500 ml Balance 480 ml -380 ml Intake Oral 480 ml 120 ml Output Urine Total 500 ml # Voids 4 2 # Bowel Movements 1 Height (Feet): 5 Height (Inches): 4.00 Weight (Pounds): 149 General Appearance: no apparent distress Neck: normal alignment Cardiovascular: normal rate Respiratory/Chest: decreased breath sounds Abdomen: normal bowel sounds Edema: no edema noted Arm (L), no edema noted Arm (R), no edema noted Leg (L), no edema noted Leg (R), no edema noted Pedal (L), no edema noted Pedal (R), no edema noted Generalized Objective Current Medications Medications (Trade) Dose Ordered Sig/Hansel Route PRN Reason Start Time Stop Time Status Last Admin Dose Admin Acetaminophen (Tylenol) 650 mg Q6H PRN ORAL Mild Pain/Temp > 100.5 01/27/18 17:30 02/26/18 17:29 01/31/18 08:36 Clonidine HCl (Catapres Tab) 0.1 mg Q4H PRN ORAL sbp more than 160mmHg 01/21/18 21:00 02/20/18 20:59 Dextrose (Dextrose 50%) 25 ml STAT PRN IV Blood Sugar btwn 60-69 mg/dL 01/21/18 21:00 02/20/18 20:59 Dextrose (Dextrose 50%) 50 ml STAT PRN IV BS less than 60mg/dl 01/21/18 21:00 02/20/18 20:59 01/27/18 20:27 Dicyclomine HCl (Bentyl) 20 mg Q6H PRN ORAL Abdominal cramps 02/03/18 14:30 03/05/18 14:29 Docusate Sodium (Colace) 100 mg THREE TIMES A DAY ORAL 01/26/18 13:00 02/25/18 12:59 01/28/18 09:08 Insulin Aspart (NovoLOG) BEFORE MEALS AND HS SUBQ 01/21/18 21:00 02/19/18 16:29 02/03/18 16:33 Insulin Aspart (NovoLOG) 10 units NOVOTIAC SUBQ 01/23/18 11:50 02/22/18 11:49 02/03/18 16:32 Insulin Detemir (Levemir) 18 units EVERY 12 HOURS SUBQ 01/23/18 09:00 02/19/18 08:59 02/03/18 09:03 Polyethylene Glycol (Miralax) 17 gm BEDTIME ORAL 01/26/18 21:00 02/19/18 20:59 Sennosides (Senokot) 1 tab DAILY ORAL 01/27/18 09:00 02/26/18 08:59 01/28/18 09:09 Vitamin A/Vitamin D (A & D Oint) 1 applic EVERY 12 HOURS TOPIC 01/21/18 21:00 02/19/18 20:59 02/03/18 21:11 Item Value Date Time Bedside Blood Glucose 107 mg/dl 02/03/18 2113 Bedside Blood Glucose 185 mg/dl H 02/03/18 1633 Bedside Blood Glucose 287 mg/dl H 02/03/18 1146 Bedside Blood Glucose 142 mg/dl H 02/03/18 0903 Bedside Blood Glucose 142 mg/dl H 02/03/18 0654 FEMI MCKEON February 04, 2018 06:30
[2018-02-04] MEDS: NovoLOG Insulin Flexpen SUBQ SCH ×7 (06:36→20:52)
[2018-02-04 08:00] VITALS: BP 126/62
[2018-02-04] MEDS: Sennosides 8.6mg ORAL SCH (08:23)
[2018-02-04] MEDS: Vitamin A&D Oint 2oz Tube TOPIC SCH ×2 (08:23→20:53)
[2018-02-04] MEDS: Docusate 100mg cap ORAL SCH ×3 (08:23→18:00)
[2018-02-04] MEDS: Levemir Flexpen SUBQ SCH ×2 (08:24→20:52)
--- NOTE | 2018-02-04 11:06 | Internal Med Progress Note ---
Subjective Date of Service: February 04, 2018 Physician Name Dwaine Stevenson Attending Physician Tone Fried MD Current Medications Medications (Trade) Dose Ordered Sig/Hansel Route PRN Reason Start Time Stop Time Status Last Admin Dose Admin Acetaminophen (Tylenol) 650 mg Q6H PRN ORAL Mild Pain/Temp > 100.5 01/27/18 17:30 02/26/18 17:29 01/31/18 08:36 Clonidine HCl (Catapres Tab) 0.1 mg Q4H PRN ORAL sbp more than 160mmHg 01/21/18 21:00 02/20/18 20:59 Dextrose (Dextrose 50%) 25 ml STAT PRN IV Blood Sugar btwn 60-69 mg/dL 01/21/18 21:00 02/20/18 20:59 Dextrose (Dextrose 50%) 50 ml STAT PRN IV BS less than 60mg/dl 01/21/18 21:00 02/20/18 20:59 01/27/18 20:27 Dicyclomine HCl (Bentyl) 20 mg Q6H PRN ORAL Abdominal cramps 02/03/18 14:30 03/05/18 14:29 Docusate Sodium (Colace) 100 mg THREE TIMES A DAY ORAL 01/26/18 13:00 02/25/18 12:59 01/28/18 09:08 Insulin Aspart (NovoLOG) BEFORE MEALS AND HS SUBQ 01/21/18 21:00 02/19/18 16:29 02/04/18 06:36 Insulin Aspart (NovoLOG) 10 units NOVOTIAC SUBQ 01/23/18 11:50 02/22/18 11:49 02/04/18 06:39 Insulin Detemir (Levemir) 18 units EVERY 12 HOURS SUBQ 01/23/18 09:00 02/19/18 08:59 02/04/18 08:24 Polyethylene Glycol (Miralax) 17 gm BEDTIME ORAL 01/26/18 21:00 02/19/18 20:59 Sennosides (Senokot) 1 tab DAILY ORAL 01/27/18 09:00 02/26/18 08:59 01/28/18 09:09 Vitamin A/Vitamin D (A & D Oint) 1 applic EVERY 12 HOURS TOPIC 01/21/18 21:00 02/19/18 20:59 02/04/18 08:23 Allergies: Coded Allergies: Shrimp (Unverified Allergy, Unknown, 12/04/17) ROS Limited/Unobtainable: No Constitutional: Reports: no symptoms HEENT: Reports: no symptoms Cardiovascular: Reports: no symptoms Respiratory: Reports: shortness of breath Gastrointestinal/Abdominal: Reports: no symptoms Genitourinary: Reports: no symptoms Neurologic/Psychiatric: Reports: no symptoms Subjective 67 YO F admitted with respiratory failure. Now acute COPD exacerbation. Cover for Int Milly Fried. Objective Last Vital Signs Date Time Temp Pulse Resp B/P (MAP) Pulse Ox O2 Delivery O2 Flow Rate FiO2 02/04/18 08:00 98.2 95 20 126/62 100 98.2 02/04/18 04:00 Nasal Cannula 2.0 02/03/18 21:01 28 Intake and Output 02/03/18 02/04/18 19:00 07:00 Intake Total 480 ml 240 ml Output Total 500 ml Balance 480 ml -260 ml Intake Oral 480 ml 240 ml Output Urine Total 500 ml # Voids 4 2 # Bowel Movements 1 Objective General Appearance: WD/WN, no apparent distress, alert EENT: PERRL/EOMI, normal ENT inspection Neck: non-tender, normal alignment, supple Cardiovascular: tachycardia; normal peripheral pulses,regular rhythm, no gallop /murmur, no JVD Respiratory/Chest: respiratory distress, crackles/rales, rhonchi - bilaterally , expiratory wheezing Abdomen: normal bowel sounds, non tender, soft, no organomegaly, no mass Edema: trace edema 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 (3) HTN (hypertension) Assessment & Plan: Continue norvasc (4) Respiratory distress (5) COPD (chronic obstructive pulmonary disease) Assessment & Plan: Continue duoneb prn. See pulmonary note. Off antibiotic per ID (6) Hepatitis C (7) Tachycardia Assessment & Plan: Improved; see cardiology note Assessment/Plan Discharge planning: [facility] when bed available. Dwaine Stevenson MD February 04, 2018 11:06
[2018-02-04 12:00] VITALS: BP 106/61
--- NOTE | 2018-02-04 12:06 | General Progress Note ---
Assessment/Plan Problem List: (1) Hyperkalemia ICD Codes: E87.5 - Hyperkalemia SNOMED: 40769621 (2) Acidosis ICD Codes: E87.2 - Acidosis SNOMED: 76841230 (3) CO2 retention ICD Codes: E87.2 - Acidosis SNOMED: 34232816 (4) Respiratory distress ICD Codes: R06.03 - Acute respiratory distress SNOMED: 674674201 (5) COPD (chronic obstructive pulmonary disease) ICD Codes: J44.9 - Chronic obstructive pulmonary disease, unspecified SNOMED: 11759309 (6) Hepatitis C ICD Codes: B19.20 - Unspecified viral hepatitis C without hepatic coma SNOMED: 66962339 (7) Acute and chronic respiratory failure ICD Codes: J96.20 - Acute and chronic respiratory failure, unspecified whether with hypoxia or hypercapnia SNOMED: 63957077 (8) Diabetes mellitus out of control ICD Codes: E11.65 - Type 2 diabetes mellitus with hyperglycemia SNOMED: 80536268, 980136164 (9) Tachycardia ICD Codes: R00.0 - Tachycardia, unspecified SNOMED: 2871131 (10) Hypertension ICD Codes: I10 - Essential (primary) hypertension SNOMED: 14246736 Assessment/Plan encephalopathy resolved psychosis due to [facility] [place] Risperdal Ativan Subjective Date patient seen: February 04, 2018 Neurologic/Psychiatric: Reports: anxiety, depressed, emotional problems Allergies: Coded Allergies: Shrimp (Unverified Allergy, Unknown, 12/04/17) Subjective e pt was somewhat confused however able to answer the questions. more depressed Objective Last 24 Hour Vital Signs Date Time Temp Pulse Resp B/P (MAP) Pulse Ox O2 Delivery O2 Flow Rate FiO2 02/04/18 08:00 98.2 95 20 126/62 100 98.2 02/04/18 04:00 97.7 98 20 127/67 96 97.7 02/04/18 04:00 Nasal Cannula 2.0 02/04/18 00:00 97.5 97 20 110/64 97 Nasal Cannula 2.0 97.5 02/03/18 21:01 97 Nasal Cannula 2.0 28 02/03/18 21:01 Nasal Cannula 2.0 28 02/03/18 19:34 98.1 86 20 112/64 97 Room Air 98.1 02/03/18 19:34 Nasal Cannula 2.0 02/03/18 16:00 98.2 97 18 118/57 94 Nasal Cannula 2.0 98.2 Intake and Output 02/03/18 02/04/18 19:00 07:00 Intake Total 480 ml 240 ml Output Total 500 ml Balance 480 ml -260 ml Intake Oral 480 ml 240 ml Output Urine Total 500 ml # Voids 4 2 # Bowel Movements 1 Height (Feet): 5 Height (Inches): 4.00 Weight (Pounds): 149 General Appearance: WD/WN, no apparent distress, alert Neurologic: depressed affect Grisel Jay M.D. February 04, 2018 12:06
--- NOTE | 2018-02-04 12:20 | Infectious Diseases Prog Note ---
Assessment/Plan Assessment/Plan A: COPD exacerbation, s/p rx -CXR 01/21: Mild pulmonary vascular congestion may be present. Correlate clinically. Left pleural effusion suspected -CXR: No acute disease Afebrile, no leukocytosis Recent acute hypoxic failure and PNA 11/2015 -sp cx 12/04: E.coli (davila S), P. mirabilis (davila S) Influenza sc : Neg transaminitis , SP Chronic Hep C, untreated VL 3.8 m,illions Hep panel : A Imm ; B not immune HIV Neg Acute hypoxic resp failure SP hx of trach s/p removal COPD Dm2 HTN NH resident Plan: - Monitor pt off of AB Rx -12/24 SP Levaquin # 5 /5 -12/10 SP Cefepime #7 -12/06 SP Vanco #3 -Monitor CBC/BMP, temperatures -aspiration precautions Hem fup, re TCP needs treatment of Hep C as outpatient needs Hep B vaccine as outpatient DC Planning , waiting for placement Subjective Allergies: Coded Allergies: Shrimp (Unverified Allergy, Unknown, 12/04/17) Subjective afebrile off abx no leukcoytosis Objective Vital Signs Last 24 Hour Vital Signs Date Time Temp Pulse Resp B/P (MAP) Pulse Ox O2 Delivery O2 Flow Rate FiO2 02/04/18 12:00 98.1 97 20 106/61 95 Nasal Cannula 2.0 98.1 02/04/18 08:00 98.2 95 20 126/62 100 98.2 02/04/18 08:00 Nasal Cannula 2.0 02/04/18 04:00 97.7 98 20 127/67 96 97.7 02/04/18 04:00 Nasal Cannula 2.0 02/04/18 00:00 97.5 97 20 110/64 97 Nasal Cannula 2.0 97.5 02/03/18 21:01 97 Nasal Cannula 2.0 28 02/03/18 21:01 Nasal Cannula 2.0 28 02/03/18 19:34 98.1 86 20 112/64 97 Room Air 98.1 02/03/18 19:34 Nasal Cannula 2.0 02/03/18 16:00 98.2 97 18 118/57 94 Nasal Cannula 2.0 98.2 Height (Feet): 5 Height (Inches): 4.00 Weight (Pounds): 149 Objective General Appearance: cachetic HEENT: normocephalic Respiratory/Chest: chest wall non-tender, lungs clear Breasts: no masses Cardiovascular: normal peripheral pulses, normal rate Abdomen: normal bowel sounds, soft, non tender Extremities: no cyanosis, no clubbing Neurologic/Psychiatric: 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 grossly normal, no motor/sensory deficits Lymphatic: no neck adenopathy Current Medications Medications (Trade) Dose Ordered Sig/Hansel Route PRN Reason Start Time Stop Time Status Last Admin Dose Admin Acetaminophen (Tylenol) 650 mg Q6H PRN ORAL Mild Pain/Temp > 100.5 01/27/18 17:30 02/26/18 17:29 01/31/18 08:36 Clonidine HCl (Catapres Tab) 0.1 mg Q4H PRN ORAL sbp more than 160mmHg 01/21/18 21:00 02/20/18 20:59 Dextrose (Dextrose 50%) 25 ml STAT PRN IV Blood Sugar btwn 60-69 mg/dL 01/21/18 21:00 02/20/18 20:59 Dextrose (Dextrose 50%) 50 ml STAT PRN IV BS less than 60mg/dl 01/21/18 21:00 02/20/18 20:59 01/27/18 20:27 Dicyclomine HCl (Bentyl) 20 mg Q6H PRN ORAL Abdominal cramps 02/03/18 14:30 03/05/18 14:29 Docusate Sodium (Colace) 100 mg THREE TIMES A DAY ORAL 01/26/18 13:00 02/25/18 12:59 01/28/18 09:08 Insulin Aspart (NovoLOG) BEFORE MEALS AND HS SUBQ 01/21/18 21:00 02/19/18 16:29 02/04/18 11:53 Insulin Aspart (NovoLOG) 10 units NOVOTIAC SUBQ 01/23/18 11:50 02/22/18 11:49 02/04/18 06:39 Insulin Detemir (Levemir) 18 units EVERY 12 HOURS SUBQ 01/23/18 09:00 02/19/18 08:59 02/04/18 08:24 Polyethylene Glycol (Miralax) 17 gm BEDTIME ORAL 01/26/18 21:00 02/19/18 20:59 Sennosides (Senokot) 1 tab DAILY ORAL 01/27/18 09:00 02/26/18 08:59 01/28/18 09:09 Vitamin A/Vitamin D (A & D Oint) 1 applic EVERY 12 HOURS TOPIC 01/21/18 21:00 02/19/18 20:59 02/04/18 08:23 Caterina Elizondo M.D. February 04, 2018 12:20
--- NOTE | 2018-02-04 13:06 | General Progress Note ---
Assessment/Plan Assessment/Plan #. Thrombocytopenia, secondary to hepatitis, early liver disease, Hep A ++, C ++ , baseline appears to be 100-200k --> platelet count has improved, baseline >100k --> Gi to follow as outpatient #. Anemia due to underlying chronic disease. Mild at this time. --> Continue to closely monitor. Has been stable. --> Blood transfusion not required unless symptomatic or hgb <7 --> Reviewed anemia workup. Iron 110, TIBC 230, Ferritin 90 and 140, B12 821, Folate 6.6, TSH 1.4 --> hgb goal >7 #. Leukopenia, likely secondary to hepatitis C, currently improved. --> No leukocytosis is noted. --> Resolved at this time. #. Tachycardia. --> Improved. Refer to cardiology note. #. Acute on hypoxic respiratory failure --> status post tracheostomy, improved. #. Hepatitis C. --> Elevated liver enzymes. Management as an outpatient. --> Appreciate ID service evaluation as well as GI recs Subjective Allergies: Coded Allergies: Shrimp (Unverified Allergy, Unknown, 12/04/17) Subjective Patient is awake and resting in bed. No s/s of acute medical distress Objective Last 24 Hour Vital Signs Date Time Temp Pulse Resp B/P (MAP) Pulse Ox O2 Delivery O2 Flow Rate FiO2 02/04/18 12:00 98.1 97 20 106/61 95 Nasal Cannula 2.0 98.1 02/04/18 08:00 98.2 95 20 126/62 100 98.2 02/04/18 08:00 Nasal Cannula 2.0 02/04/18 04:00 97.7 98 20 127/67 96 97.7 02/04/18 04:00 Nasal Cannula 2.0 02/04/18 00:00 97.5 97 20 110/64 97 Nasal Cannula 2.0 97.5 02/03/18 21:01 97 Nasal Cannula 2.0 28 02/03/18 21:01 Nasal Cannula 2.0 28 02/03/18 19:34 98.1 86 20 112/64 97 Room Air 98.1 02/03/18 19:34 Nasal Cannula 2.0 02/03/18 16:00 98.2 97 18 118/57 94 Nasal Cannula 2.0 98.2 Intake and Output 02/03/18 02/04/18 19:00 07:00 Intake Total 480 ml 240 ml Output Total 500 ml Balance 480 ml -260 ml Intake Oral 480 ml 240 ml Output Urine Total 500 ml # Voids 4 2 # Bowel Movements 1 Height (Feet): 5 Height (Inches): 4.00 Weight (Pounds): 149 Anuj Alfaro MD February 04, 2018 13:06
--- NOTE | 2018-02-04 15:45 | Pulmonology Progress Note ---
Assessment/Plan Problems: (1) Acute and chronic respiratory failure (2) COPD (chronic obstructive pulmonary disease) (3) Hepatitis C Assessment/Plan doing better no new events no new complains respiratory treatment still in search of a new place Subjective ROS Limited/Unobtainable: No HEENT: Repors: no symptoms Allergies: Coded Allergies: Shrimp (Unverified Allergy, Unknown, 12/04/17) Objective Last 24 Hour Vital Signs Date Time Temp Pulse Resp B/P (MAP) Pulse Ox O2 Delivery O2 Flow Rate FiO2 02/04/18 12:00 98.1 97 20 106/61 95 Nasal Cannula 2.0 98.1 02/04/18 08:00 98.2 95 20 126/62 100 98.2 02/04/18 08:00 Nasal Cannula 2.0 02/04/18 04:00 97.7 98 20 127/67 96 97.7 02/04/18 04:00 Nasal Cannula 2.0 02/04/18 00:00 97.5 97 20 110/64 97 Nasal Cannula 2.0 97.5 02/03/18 21:01 97 Nasal Cannula 2.0 28 02/03/18 21:01 Nasal Cannula 2.0 28 02/03/18 19:34 98.1 86 20 112/64 97 Room Air 98.1 02/03/18 19:34 Nasal Cannula 2.0 02/03/18 16:00 98.2 97 18 118/57 94 Nasal Cannula 2.0 98.2 Intake and Output 02/03/18 02/04/18 19:00 07:00 Intake Total 480 ml 240 ml Output Total 500 ml Balance 480 ml -260 ml Intake Oral 480 ml 240 ml Output Urine Total 500 ml # Voids 4 2 # Bowel Movements 1 Objective General Appearance: cachetic HEENT: normocephalic Respiratory/Chest: chest wall non-tender, lungs clear Breasts: no masses Cardiovascular: normal peripheral pulses, normal rate Abdomen: normal bowel sounds, soft, non tender Extremities: no cyanosis, no clubbing 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, no motor/sensory deficits Lymphatic: no neck adenopathy Current Medications Medications (Trade) Dose Ordered Sig/Hansel Route PRN Reason Start Time Stop Time Status Last Admin Dose Admin Acetaminophen (Tylenol) 650 mg Q6H PRN ORAL Mild Pain/Temp > 100.5 01/27/18 17:30 6/12/18 17:29 01/31/18 08:36 Clonidine HCl (Catapres Tab) 0.1 mg Q4H PRN ORAL sbp more than 160mmHg 01/21/18 21:00 02/20/18 20:59 Dextrose (Dextrose 50%) 25 ml STAT PRN IV Blood Sugar btwn 60-69 mg/dL 01/21/18 21:00 02/20/18 20:59 Dextrose (Dextrose 50%) 50 ml STAT PRN IV BS less than 60mg/dl 01/21/18 21:00 02/20/18 20:59 01/27/18 20:27 Dicyclomine HCl (Bentyl) 20 mg Q6H PRN ORAL Abdominal cramps 02/03/18 14:30 03/05/18 14:29 Docusate Sodium (Colace) 100 mg THREE TIMES A DAY ORAL 01/26/18 13:00 02/25/18 12:59 01/28/18 09:08 Insulin Aspart (NovoLOG) BEFORE MEALS AND HS SUBQ 01/21/18 21:00 02/19/18 16:29 02/04/18 11:53 Insulin Aspart (NovoLOG) 10 units NOVOTIAC SUBQ 01/23/18 11:50 02/22/18 11:49 02/04/18 06:39 Insulin Detemir (Levemir) 18 units EVERY 12 HOURS SUBQ 01/23/18 09:00 02/19/18 08:59 02/04/18 08:24 Polyethylene Glycol (Miralax) 17 gm BEDTIME ORAL 01/26/18 21:00 02/19/18 20:59 Sennosides (Senokot) 1 tab DAILY ORAL 01/27/18 09:00 02/26/18 08:59 01/28/18 09:09 Vitamin A/Vitamin D (A & D Oint) 1 applic EVERY 12 HOURS TOPIC 01/21/18 21:00 02/19/18 20:59 02/04/18 08:23 Leni Watts MD February 04, 2018 15:44
[2018-02-04 15:53] VITALS: BP 133/68
[2018-02-04 20:29] VITALS: BP 112/67
[2018-02-04] MEDS: Miralax 17gm pkt ORAL SCH (20:53)
[2018-02-05] VITALS: BP 112/71
[2018-02-05 04:00] VITALS: BP 115/64
[2018-02-05] MEDS: NovoLOG Insulin Flexpen SUBQ SCH ×7 (05:54→20:34)
--- NOTE | 2018-02-05 06:29 | General Progress Note ---
Assessment/Plan Problem List: (1) Diabetes mellitus out of control ICD Codes: E11.65 - Type 2 diabetes mellitus with hyperglycemia SNOMED: 91032072, [id number] (2) COPD (chronic obstructive pulmonary disease) ICD Codes: J44.9 - Chronic obstructive pulmonary disease, unspecified SNOMED: 87212041 (3) Acute and chronic respiratory failure ICD Codes: J96.20 - Acute and chronic respiratory failure, unspecified whether with hypoxia or hypercapnia SNOMED: 46669582 Assessment/Plan continue Levemir 18 units bid continue Novolog to 10 units ac tid continue NISS Subjective Allergies: Coded Allergies: Shrimp (Unverified Allergy, Unknown, 12/04/17) All Systems: reviewed and negative except above Subjective events noted - interval notes reviewed Objective Last 24 Hour Vital Signs Date Time Temp Pulse Resp B/P (MAP) Pulse Ox O2 Delivery O2 Flow Rate FiO2 02/05/18 04:00 97.5 89 18 115/64 98 97.5 02/05/18 04:00 98 Nasal Cannula 2.0 02/05/18 00:00 97 Nasal Cannula 2.0 02/05/18 00:00 98.1 61 17 112/71 97 98.1 02/04/18 20:29 97.9 95 17 112/67 100 97.9 02/04/18 20:29 100 Nasal Cannula 2.0 02/04/18 16:00 Nasal Cannula 2.0 02/04/18 15:53 97.7 97 20 133/68 100 97.7 02/04/18 12:00 98.1 97 20 106/61 95 Nasal Cannula 2.0 98.1 02/04/18 08:00 98.2 95 20 126/62 100 98.2 02/04/18 08:00 Nasal Cannula 2.0 Intake and Output 02/04/18 02/05/18 19:00 07:00 Intake Total 450 ml Output Total 500 ml Balance 450 ml -500 ml Intake Oral 450 ml Output Urine Total 500 ml # Voids 3 1 Height (Feet): 5 Height (Inches): 4.00 Weight (Pounds): 148 General Appearance: no apparent distress Neck: normal alignment Cardiovascular: normal rate Respiratory/Chest: decreased breath sounds Abdomen: normal bowel sounds Pelvis: normal external exam Edema: 1+ Arm (L), 1+ Arm (R), 1+ Leg (L), 1+ Leg (R), 1+ Pedal (L), 1+ Pedal ( R), 1+ Generalized Objective Current Medications Medications (Trade) Dose Ordered Sig/Hansel Route PRN Reason Start Time Stop Time Status Last Admin Dose Admin Acetaminophen (Tylenol) 650 mg Q6H PRN ORAL Mild Pain/Temp > 100.5 01/27/18 17:30 02/26/18 17:29 01/31/18 08:36 Clonidine HCl (Catapres Tab) 0.1 mg Q4H PRN ORAL sbp more than 160mmHg 01/21/18 21:00 02/20/18 20:59 Dextrose (Dextrose 50%) 25 ml STAT PRN IV Blood Sugar btwn 60-69 mg/dL 01/21/18 21:00 02/20/18 20:59 Dextrose (Dextrose 50%) 50 ml STAT PRN IV BS less than 60mg/dl 01/21/18 21:00 02/20/18 20:59 01/27/18 20:27 Dicyclomine HCl (Bentyl) 20 mg Q6H PRN ORAL Abdominal cramps 02/03/18 14:30 03/05/18 14:29 Docusate Sodium (Colace) 100 mg THREE TIMES A DAY ORAL 01/26/18 13:00 02/25/18 12:59 01/28/18 09:08 Insulin Aspart (NovoLOG) BEFORE MEALS AND HS SUBQ 01/21/18 21:00 02/19/18 16:29 02/05/18 05:54 Insulin Aspart (NovoLOG) 10 units NOVOTIAC SUBQ 01/23/18 11:50 02/22/18 11:49 02/04/18 16:56 Insulin Detemir (Levemir) 18 units EVERY 12 HOURS SUBQ 01/23/18 09:00 02/19/18 08:59 02/04/18 20:52 Polyethylene Glycol (Miralax) 17 gm BEDTIME ORAL 01/26/18 21:00 02/19/18 20:59 Sennosides (Senokot) 1 tab DAILY ORAL 01/27/18 09:00 02/26/18 08:59 01/28/18 09:09 Vitamin A/Vitamin D (A & D Oint) 1 applic EVERY 12 HOURS TOPIC 01/21/18 21:00 02/19/18 20:59 02/04/18 20:53 Item Value Date Time Bedside Blood Glucose 133 mg/dl H 02/05/18 0555 Bedside Blood Glucose 115 mg/dl 02/04/18 2110 Bedside Blood Glucose 132 mg/dl H 02/04/18 1656 Bedside Blood Glucose 232 mg/dl H 02/04/18 1153 Bedside Blood Glucose 202 mg/dl H 02/04/18 0824 Bedside Blood Glucose 202 mg/dl H 02/04/18 0639 FEMI MCKEON February 05, 2018 06:28
[2018-02-05 08:00] VITALS: BP 116/67
[2018-02-05] MEDS: Docusate 100mg cap ORAL SCH ×4 (08:14→18:00)
[2018-02-05] MEDS: Sennosides 8.6mg ORAL SCH ×2 (08:14→08:19)
[2018-02-05] MEDS: Vitamin A&D Oint 2oz Tube TOPIC SCH ×2 (08:15→20:35)
[2018-02-05] MEDS: Levemir Flexpen SUBQ SCH ×2 (08:15→20:35)
--- NOTE | 2018-02-05 08:40 | General Progress Note ---
Assessment/Plan Assessment/Plan #. Thrombocytopenia, secondary to hepatitis, early liver disease, Hep A ++, C ++ , baseline appears to be 100-200k --> platelet count has improved, baseline >100k --> Gi to follow as outpatient #. Anemia due to underlying chronic disease. Continue to closely monitor. Has been stable. --> Blood transfusion not required unless symptomatic or hgb <7 --> Reviewed anemia workup. Iron 110, TIBC 230, Ferritin 90 and 140, B12 821, Folate 6.6, TSH 1.4 --> hgb goal >7 #. Leukopenia, likely secondary to hepatitis C, currently improved. --> No leukocytosis is noted. --> Resolved at this time. #. Tachycardia. --> Improved. Refer to cardiology note. #. Acute on hypoxic respiratory failure --> status post tracheostomy, improved. #. Hepatitis C. with elevated liver enzymes. Management as an outpatient. --> Appreciate ID service evaluation as well as GI recs Subjective Constitutional: Denies: no symptoms, chills, diaphoresis, fever, malaise, weakness, other HEENT: Denies: no symptoms, eye pain, blurred vision, tearing, double vision, ear pain, ear discharge, nose pain, nose congestion, throat pain, throat swelling, mouth pain, mouth swelling, other Cardiovascular: Denies: no symptoms, chest pain, edema, irregular heart rate, lightheadedness, palpitations, syncope, other Respiratory: Denies: no symptoms, cough, orthopnea, shortness of breath, SOB with excertion, SOB at rest, sputum, stridor, wheezing, other Gastrointestinal/Abdominal: Denies: no symptoms, abdomen distended, abdominal pain, black stools, tarry stools, blood in stool, constipated, diarrhea, difficulty swallowing, nausea, poor appetite, poor fluid intake, rectal bleeding , vomiting, other Genitourinary: Denies: no symptoms, burning, discharge, frequency, flank pain, hematuria, incontinence, pain, urgency, other Neurologic/Psychiatric: Denies: no symptoms, anxiety, depressed, emotional problems, headache, numbness, paresthesia, pre-existing deficit, seizure, tingling, tremors, weakness, other Endocrine: Denies: no symptoms, excessive sweating, flushing, intolerance to cold, intolerance to heat, increased hunger, increased thirst, increased urine, unexplained weight gain, unexplained weight loss, other Hematologic/Lymphatic: Denies: no symptoms, anemia, easy bleeding, easy bruising, other Allergies: Coded Allergies: Shrimp (Unverified Allergy, Unknown, 12/04/17) Subjective Patient is awake and resting in bed. Is pending placement Objective Last 24 Hour Vital Signs Date Time Temp Pulse Resp B/P (MAP) Pulse Ox O2 Delivery O2 Flow Rate FiO2 02/05/18 04:00 97.5 89 18 115/64 98 97.5 02/05/18 04:00 98 Nasal Cannula 2.0 02/05/18 00:00 97 Nasal Cannula 2.0 02/05/18 00:00 98.1 61 17 112/71 97 98.1 02/04/18 20:29 97.9 95 17 112/67 100 97.9 02/04/18 20:29 100 Nasal Cannula 2.0 02/04/18 16:00 Nasal Cannula 2.0 02/04/18 15:53 97.7 97 20 133/68 100 97.7 02/04/18 12:00 98.1 97 20 106/61 95 Nasal Cannula 2.0 98.1 Intake and Output 02/04/18 02/05/18 19:00 07:00 Intake Total 450 ml Output Total 500 ml Balance 450 ml -500 ml Intake Oral 450 ml Output Urine Total 500 ml # Voids 3 1 Height (Feet): 5 Height (Inches): 4.00 Weight (Pounds): 148 General Appearance: alert EENT: TMs normal Neck: supple Cardiovascular: regular rhythm Respiratory/Chest: no respiratory distress Abdomen: no organomegaly Extremities: non-tender Edema: 1+ Leg (L), 1+ Leg (R) Edema: mild edema Neurologic: alert Skin: warm/dry Anuj Alfaro MD February 05, 2018 08:40
--- NOTE | 2018-02-05 10:27 | Infectious Diseases Prog Note ---
Assessment/Plan Assessment/Plan A: COPD exacerbation, s/p rx -CXR 01/21: Mild pulmonary vascular congestion may be present. Correlate clinically. Left pleural effusion suspected -CXR: No acute disease Afebrile, no leukocytosis Recent acute hypoxic failure and PNA 11/2015 -sp cx 12/04: E.coli (davila S), P. mirabilis (davila S) Influenza sc : Neg transaminitis , SP Chronic Hep C, untreated VL 3.8 m,illions Hep panel : A Imm ; B not immune HIV Neg Acute hypoxic resp failure SP hx of trach s/p removal COPD Dm2 HTN NH resident Plan: - Monitor pt off of AB Rx -12/24 SP Levaquin # 5 /5 -12/10 SP Cefepime #7 -12/06 SP Vanco #3 -Monitor CBC/BMP, temperatures -aspiration precautions Hem fup, re TCP needs treatment of Hep C as outpatient needs Hep B vaccine as outpatient DC Planning , waiting for placement Subjective Allergies: Coded Allergies: Shrimp (Unverified Allergy, Unknown, 12/04/17) Subjective afebrile off abx no leukcoytosis Objective Vital Signs Last 24 Hour Vital Signs Date Time Temp Pulse Resp B/P (MAP) Pulse Ox O2 Delivery O2 Flow Rate FiO2 02/05/18 04:00 97.5 89 18 115/64 98 97.5 02/05/18 04:00 98 Nasal Cannula 2.0 02/05/18 00:00 97 Nasal Cannula 2.0 02/05/18 00:00 98.1 61 17 112/71 97 98.1 02/04/18 20:29 97.9 95 17 112/67 100 97.9 02/04/18 20:29 100 Nasal Cannula 2.0 02/04/18 16:00 Nasal Cannula 2.0 02/04/18 15:53 97.7 97 20 133/68 100 97.7 02/04/18 12:00 98.1 97 20 106/61 95 Nasal Cannula 2.0 98.1 Height (Feet): 5 Height (Inches): 4.00 Weight (Pounds): 148 Objective General Appearance: cachetic HEENT: normocephalic Respiratory/Chest: chest wall non-tender, lungs clear Breasts: no masses Cardiovascular: normal peripheral pulses, normal rate Abdomen: normal bowel sounds, soft, non tender Extremities: no cyanosis, no clubbing 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, no motor/sensory deficits Lymphatic: no neck adenopathy Current Medications Medications (Trade) Dose Ordered Sig/Hansel Route PRN Reason Start Time Stop Time Status Last Admin Dose Admin Acetaminophen (Tylenol) 650 mg Q6H PRN ORAL Mild Pain/Temp > 100.5 01/27/18 17:30 02/26/18 17:29 01/31/18 08:36 Clonidine HCl (Catapres Tab) 0.1 mg Q4H PRN ORAL sbp more than 160mmHg 01/21/18 21:00 02/20/18 20:59 Dextrose (Dextrose 50%) 25 ml STAT PRN IV Blood Sugar btwn 60-69 mg/dL 01/21/18 21:00 02/20/18 20:59 Dextrose (Dextrose 50%) 50 ml STAT PRN IV BS less than 60mg/dl 01/21/18 21:00 02/20/18 20:59 01/27/18 20:27 Dicyclomine HCl (Bentyl) 20 mg Q6H PRN ORAL Abdominal cramps 02/03/18 14:30 03/05/18 14:29 Docusate Sodium (Colace) 100 mg THREE TIMES A DAY ORAL 01/26/18 13:00 02/25/18 12:59 01/28/18 09:08 Insulin Aspart (NovoLOG) BEFORE MEALS AND HS SUBQ 01/21/18 21:00 02/19/18 16:29 02/05/18 05:54 Insulin Aspart (NovoLOG) 10 units NOVOTIAC SUBQ 01/23/18 11:50 02/22/18 11:49 02/04/18 16:56 Insulin Detemir (Levemir) 18 units EVERY 12 HOURS SUBQ 01/23/18 09:00 02/19/18 08:59 02/05/18 08:15 Polyethylene Glycol (Miralax) 17 gm BEDTIME ORAL 01/26/18 21:00 02/19/18 20:59 Sennosides (Senokot) 1 tab DAILY ORAL 01/27/18 09:00 02/26/18 08:59 01/28/18 09:09 Vitamin A/Vitamin D (A & D Oint) 1 applic EVERY 12 HOURS TOPIC 01/21/18 21:00 02/19/18 20:59 02/05/18 08:15 Caterina Elizondo M.D. February 05, 2018 10:27
[2018-02-05 12:00] VITALS: BP 118/65
--- NOTE | 2018-02-05 14:25 | Pulmonology Progress Note ---
Assessment/Plan Problems: (1) Acute and chronic respiratory failure (2) COPD (chronic obstructive pulmonary disease) (3) Hepatitis C Assessment/Plan doing better no new events no new complains respiratory treatment still in search of a new place Subjective ROS Limited/Unobtainable: No Allergies: Coded Allergies: Shrimp (Unverified Allergy, Unknown, 12/04/17) Objective Last 24 Hour Vital Signs Date Time Temp Pulse Resp B/P (MAP) Pulse Ox O2 Delivery O2 Flow Rate FiO2 02/05/18 12:00 97.9 83 20 118/65 99 Nasal Cannula 2.0 97.9 02/05/18 08:00 98.1 92 20 116/67 99 Nasal Cannula 2.0 98.1 02/05/18 04:00 97.5 89 18 115/64 98 97.5 02/05/18 04:00 98 Nasal Cannula 2.0 02/05/18 00:00 97 Nasal Cannula 2.0 02/05/18 00:00 98.1 61 17 112/71 97 98.1 02/04/18 20:29 97.9 95 17 112/67 100 97.9 02/04/18 20:29 100 Nasal Cannula 2.0 02/04/18 16:00 Nasal Cannula 2.0 02/04/18 15:53 97.7 97 20 133/68 100 97.7 Intake and Output 02/04/18 02/05/18 19:00 07:00 Intake Total 450 ml Output Total 500 ml Balance 450 ml -500 ml Intake Oral 450 ml Output Urine Total 500 ml # Voids 3 1 Objective General Appearance: cachetic HEENT: normocephalic Respiratory/Chest: chest wall non-tender, lungs clear Breasts: no masses Cardiovascular: normal peripheral pulses, normal rate Abdomen: normal bowel sounds, soft, non tender Extremities: no cyanosis, no clubbing 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, no motor/sensory deficits Lymphatic: no neck adenopathy Current Medications Medications (Trade) Dose Ordered Sig/Hansel Route PRN Reason Start Time Stop Time Status Last Admin Dose Admin Acetaminophen (Tylenol) 650 mg Q6H PRN ORAL Mild Pain/Temp > 100.5 01/27/18 17:30 02/26/18 17:29 01/31/18 08:36 Clonidine HCl (Catapres Tab) 0.1 mg Q4H PRN ORAL sbp more than 160mmHg 01/21/18 21:00 02/20/18 20:59 Dextrose (Dextrose 50%) 25 ml STAT PRN IV Blood Sugar btwn 60-69 mg/dL 01/21/18 21:00 02/20/18 20:59 Dextrose (Dextrose 50%) 50 ml STAT PRN IV BS less than 60mg/dl 01/21/18 21:00 02/20/18 20:59 01/27/18 20:27 Dicyclomine HCl (Bentyl) 20 mg Q6H PRN ORAL Abdominal cramps 02/03/18 14:30 03/05/18 14:29 Docusate Sodium (Colace) 100 mg THREE TIMES A DAY ORAL 01/26/18 13:00 02/25/18 12:59 01/28/18 09:08 Insulin Aspart (NovoLOG) BEFORE MEALS AND HS SUBQ 01/21/18 21:00 02/19/18 16:29 02/05/18 11:44 Insulin Aspart (NovoLOG) 10 units NOVOTIAC SUBQ 01/23/18 11:50 02/22/18 11:49 02/05/18 11:46 Insulin Detemir (Levemir) 18 units EVERY 12 HOURS SUBQ 01/23/18 09:00 02/19/18 08:59 02/05/18 08:15 Polyethylene Glycol (Miralax) 17 gm BEDTIME ORAL 01/26/18 21:00 02/19/18 20:59 Sennosides (Senokot) 1 tab DAILY ORAL 01/27/18 09:00 02/26/18 08:59 01/28/18 09:09 Vitamin A/Vitamin D (A & D Oint) 1 applic EVERY 12 HOURS TOPIC 01/21/18 21:00 02/19/18 20:59 02/05/18 08:15 Leni Watts MD February 05, 2018 14:25
[2018-02-05 15:59] VITALS: BP 119/72
--- NOTE | 2018-02-05 17:07 | Internal Med Progress Note ---
Subjective Date of Service: February 05, 2018 Physician Name StevensonDwaine oliveira Attending Physician Tone Fried MD Current Medications Medications (Trade) Dose Ordered Sig/Hansel Route PRN Reason Start Time Stop Time Status Last Admin Dose Admin Acetaminophen (Tylenol) 650 mg Q6H PRN ORAL Mild Pain/Temp > 100.5 01/27/18 17:30 02/26/18 17:29 01/31/18 08:36 Clonidine HCl (Catapres Tab) 0.1 mg Q4H PRN ORAL sbp more than 160mmHg 01/21/18 21:00 02/20/18 20:59 Dextrose (Dextrose 50%) 25 ml STAT PRN IV Blood Sugar btwn 60-69 mg/dL 01/21/18 21:00 02/20/18 20:59 Dextrose (Dextrose 50%) 50 ml STAT PRN IV BS less than 60mg/dl 01/21/18 21:00 02/20/18 20:59 01/27/18 20:27 Dicyclomine HCl (Bentyl) 20 mg Q6H PRN ORAL Abdominal cramps 02/03/18 14:30 03/05/18 14:29 Docusate Sodium (Colace) 100 mg THREE TIMES A DAY ORAL 01/26/18 13:00 02/25/18 12:59 01/28/18 09:08 Insulin Aspart (NovoLOG) BEFORE MEALS AND HS SUBQ 01/21/18 21:00 02/19/18 16:29 02/05/18 11:44 Insulin Aspart (NovoLOG) 10 units NOVOTIAC SUBQ 01/23/18 11:50 02/22/18 11:49 02/05/18 11:46 Insulin Detemir (Levemir) 18 units EVERY 12 HOURS SUBQ 01/23/18 09:00 02/19/18 08:59 02/05/18 08:15 Polyethylene Glycol (Miralax) 17 gm BEDTIME ORAL 01/26/18 21:00 02/19/18 20:59 Sennosides (Senokot) 1 tab DAILY ORAL 01/27/18 09:00 02/26/18 08:59 01/28/18 09:09 Vitamin A/Vitamin D (A & D Oint) 1 applic EVERY 12 HOURS TOPIC 01/21/18 21:00 02/19/18 20:59 02/05/18 08:15 Allergies: Coded Allergies: Shrimp (Unverified Allergy, Unknown, 12/04/17) ROS Limited/Unobtainable: No Constitutional: Reports: no symptoms HEENT: Reports: no symptoms Cardiovascular: Reports: no symptoms Respiratory: Reports: shortness of breath Gastrointestinal/Abdominal: Reports: no symptoms Genitourinary: Reports: no symptoms Neurologic/Psychiatric: Reports: no symptoms Subjective 67 YO F admitted with respiratory failure. Now acute COPD exacerbation. Cover for Int Milly Fried. Await SNF placement Objective Last Vital Signs Date Time Temp Pulse Resp B/P (MAP) Pulse Ox O2 Delivery O2 Flow Rate FiO2 02/05/18 15:59 98.0 89 20 119/72 98 98.0 02/05/18 12:00 Nasal Cannula 2.0 02/03/18 21:01 28 Intake and Output 02/04/18 02/05/18 19:00 07:00 Intake Total 450 ml Output Total 500 ml Balance 450 ml -500 ml Intake Oral 450 ml Output Urine Total 500 ml # Voids 3 1 Objective General Appearance: WD/WN, no apparent distress, alert EENT: PERRL/EOMI, normal ENT inspection Neck: non-tender, normal alignment, supple Cardiovascular: tachycardia; normal peripheral pulses,regular rhythm, no gallop /murmur, no JVD Respiratory/Chest: respiratory distress, crackles/rales, rhonchi - bilaterally , expiratory wheezing Abdomen: normal bowel sounds, non tender, soft, no organomegaly, no mass Edema: trace edema 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 (3) HTN (hypertension) Assessment & Plan: Continue norvasc (4) Respiratory distress (5) COPD (chronic obstructive pulmonary disease) Assessment & Plan: Continue duoneb prn. See pulmonary note. Off antibiotic per ID (6) Hepatitis C (7) Tachycardia Assessment & Plan: Improved; see cardiology note Assessment/Plan Discharge planning: [facility] nursing [facility] when bed available. Dwaine Stevenson MD February 05, 2018 17:07
[2018-02-05 20:24] VITALS: BP 117/64
[2018-02-05] MEDS: Miralax 17gm pkt ORAL SCH (20:35)
--- NOTE | 2018-02-05 23:40 | General Progress Note ---
Assessment/Plan Problem List: (1) Hyperkalemia ICD Codes: E87.5 - Hyperkalemia SNOMED: 05898601 (2) Acidosis ICD Codes: E87.2 - Acidosis SNOMED: 36509853 (3) CO2 retention ICD Codes: E87.2 - Acidosis SNOMED: 09886774 (4) Respiratory distress ICD Codes: R06.03 - Acute respiratory distress SNOMED: 799566605 (5) COPD (chronic obstructive pulmonary disease) ICD Codes: J44.9 - Chronic obstructive pulmonary disease, unspecified SNOMED: 03301214 (6) Hepatitis C ICD Codes: B19.20 - Unspecified viral hepatitis C without hepatic coma SNOMED: 09017956 (7) Acute and chronic respiratory failure ICD Codes: J96.20 - Acute and chronic respiratory failure, unspecified whether with hypoxia or hypercapnia SNOMED: 68455690 (8) Diabetes mellitus out of control ICD Codes: E11.65 - Type 2 diabetes mellitus with hyperglycemia SNOMED: 27826015, 740233463 (9) Tachycardia ICD Codes: R00.0 - Tachycardia, unspecified SNOMED: 6149560 (10) Hypertension ICD Codes: I10 - Essential (primary) hypertension SNOMED: 10458254 Assessment/Plan encephalopathy resolved [place] [facility] [place] Risperdal Ativan Subjective Date patient seen: February 05, 2018 Allergies: Coded Allergies: Shrimp (Unverified Allergy, Unknown, 12/04/17) Subjective e pt was somewhat confused however able to answer the questions. more depressed Objective Last 24 Hour Vital Signs Date Time Temp Pulse Resp B/P (MAP) Pulse Ox O2 Delivery O2 Flow Rate FiO2 02/05/18 20:40 98 Nasal Cannula 2.0 28 02/05/18 20:40 Nasal Cannula 2.0 28 02/05/18 20:24 97.9 86 18 117/64 99 97.9 02/05/18 15:59 98.0 89 20 119/72 98 98.0 02/05/18 12:00 97.9 83 20 118/65 99 Nasal Cannula 2.0 97.9 02/05/18 08:00 98.1 92 20 116/67 99 Nasal Cannula 2.0 98.1 02/05/18 04:00 97.5 89 18 115/64 98 97.5 02/05/18 04:00 98 Nasal Cannula 2.0 02/05/18 00:00 97 Nasal Cannula 2.0 02/05/18 00:00 98.1 61 17 112/71 97 98.1 Intake and Output 02/04/18 02/05/18 19:00 07:00 Intake Total 450 ml Output Total 500 ml Balance 450 ml -500 ml Intake Oral 450 ml Output Urine Total 500 ml # Voids 3 1 Height (Feet): 5 Height (Inches): 4.00 Weight (Pounds): 148 Grisel Jay M.D. February 05, 2018 23:40
[2018-02-06 00:16] VITALS: BP 111/61
[2018-02-06 04:00] VITALS: BP 104/60
[2018-02-06] MEDS: NovoLOG Insulin Flexpen SUBQ SCH ×4 (06:10→11:59)
--- NOTE | 2018-02-06 06:30 | General Progress Note ---
Assessment/Plan Problem List: (1) Diabetes mellitus out of control ICD Codes: E11.65 - Type 2 diabetes mellitus with hyperglycemia SNOMED: 30220952, 888858342 (2) COPD (chronic obstructive pulmonary disease) ICD Codes: J44.9 - Chronic obstructive pulmonary disease, unspecified SNOMED: 46683801 (3) Acute and chronic respiratory failure ICD Codes: J96.20 - Acute and chronic respiratory failure, unspecified whether with hypoxia or hypercapnia SNOMED: 86262415 Assessment/Plan continue Levemir 18 units bid continue Novolog to 10 units ac tid continue NISS Subjective Allergies: Coded Allergies: Shrimp (Unverified Allergy, Unknown, 12/04/17) All Systems: reviewed and negative except above Subjective events noted - interval notes reviewed Objective Last 24 Hour Vital Signs Date Time Temp Pulse Resp B/P (MAP) Pulse Ox O2 Delivery O2 Flow Rate FiO2 02/06/18 04:22 98.1 02/06/18 04:00 98.1 94 17 104/60 99 98.1 02/06/18 00:16 97.8 81 16 111/61 99 97.8 02/05/18 20:40 98 Nasal Cannula 2.0 28 02/05/18 20:40 Nasal Cannula 2.0 28 02/05/18 20:24 99 Nasal Cannula 2.0 02/05/18 20:24 97.9 86 18 117/64 99 97.9 02/05/18 15:59 98.0 89 20 119/72 98 98.0 02/05/18 12:00 97.9 83 20 118/65 99 Nasal Cannula 2.0 97.9 02/05/18 08:00 98.1 92 20 116/67 99 Nasal Cannula 2.0 98.1 Intake and Output 02/05/18 02/06/18 19:00 07:00 Intake Total 902 ml 360 ml Balance 902 ml 360 ml Intake Oral 902 ml 360 ml # Voids 4 # Bowel Movements 1 Height (Feet): 5 Height (Inches): 4.00 Weight (Pounds): 151 General Appearance: no apparent distress Neck: normal alignment Cardiovascular: normal rate Respiratory/Chest: decreased breath sounds Abdomen: normal bowel sounds Edema: no edema noted Arm (L), no edema noted Arm (R), no edema noted Leg (L), no edema noted Leg (R), no edema noted Pedal (L), no edema noted Pedal (R), no edema noted Generalized Objective Current Medications Medications (Trade) Dose Ordered Sig/Hansel Route PRN Reason Start Time Stop Time Status Last Admin Dose Admin Acetaminophen (Tylenol) 650 mg Q6H PRN ORAL Mild Pain/Temp > 100.5 01/27/18 17:30 02/26/18 17:29 02/06/18 03:23 Clonidine HCl (Catapres Tab) 0.1 mg Q4H PRN ORAL sbp more than 160mmHg 01/21/18 21:00 02/20/18 20:59 Dextrose (Dextrose 50%) 25 ml STAT PRN IV Blood Sugar btwn 60-69 mg/dL 01/21/18 21:00 02/20/18 20:59 Dextrose (Dextrose 50%) 50 ml STAT PRN IV BS less than 60mg/dl 01/21/18 21:00 02/20/18 20:59 01/27/18 20:27 Dicyclomine HCl (Bentyl) 20 mg Q6H PRN ORAL Abdominal cramps 02/03/18 14:30 03/05/18 14:29 Docusate Sodium (Colace) 100 mg THREE TIMES A DAY ORAL 01/26/18 13:00 02/25/18 12:59 01/28/18 09:08 Insulin Aspart (NovoLOG) BEFORE MEALS AND HS SUBQ 01/21/18 21:00 02/19/18 16:29 02/05/18 20:34 Insulin Aspart (NovoLOG) 10 units NOVOTIAC SUBQ 01/23/18 11:50 02/22/18 11:49 02/05/18 11:46 Insulin Detemir (Levemir) 18 units EVERY 12 HOURS SUBQ 01/23/18 09:00 02/19/18 08:59 02/05/18 20:35 Polyethylene Glycol (Miralax) 17 gm BEDTIME ORAL 01/26/18 21:00 02/19/18 20:59 Sennosides (Senokot) 1 tab DAILY ORAL 01/27/18 09:00 02/26/18 08:59 01/28/18 09:09 Vitamin A/Vitamin D (A & D Oint) 1 applic EVERY 12 HOURS TOPIC 01/21/18 21:00 02/19/18 20:59 02/05/18 20:35 Item Value Date Time Bedside Blood Glucose 107 mg/dl 02/06/18 0610 Bedside Blood Glucose 197 mg/dl H 02/05/18 2045 Bedside Blood Glucose 74 mg/dl 02/05/18 1650 Bedside Blood Glucose 186 mg/dl H 02/05/18 1146 Bedside Blood Glucose 133 mg/dl H 02/05/18 0815 FEMI MCKEON February 06, 2018 06:30
[2018-02-06 08:00] VITALS: BP 112/57
[2018-02-06] MEDS: Levemir Flexpen SUBQ SCH (08:42)
[2018-02-06] MEDS: Sennosides 8.6mg ORAL SCH (08:47)
[2018-02-06] MEDS: Docusate 100mg cap ORAL SCH ×2 (08:47→13:00)
[2018-02-06] MEDS: Vitamin A&D Oint 2oz Tube TOPIC SCH (08:49)
--- NOTE | 2018-02-06 11:34 | Infectious Diseases Prog Note ---
Assessment/Plan Assessment/Plan A: COPD exacerbation, s/p rx -CXR 01/21: Mild pulmonary vascular congestion may be present. Correlate clinically. Left pleural effusion suspected -CXR: No acute disease Afebrile, no leukocytosis Recent acute hypoxic failure and PNA 11/2015 -sp cx 12/04: E.coli (davila S), P. mirabilis (davila S) Influenza sc : Neg transaminitis , SP Chronic Hep C, untreated VL 3.8 m,illions Hep panel : A Imm ; B not immune HIV Neg Acute hypoxic resp failure SP hx of trach s/p removal COPD Dm2 HTN NH resident Plan: - Monitor pt off of AB Rx -12/24 SP Levaquin # 5 /5 -12/10 SP Cefepime #7 -12/06 SP Vanco #3 -Monitor CBC/BMP, temperatures -aspiration precautions Hem fup, re TCP needs treatment of Hep C as outpatient needs Hep B vaccine as outpatient DC Planning , waiting for placement Subjective Allergies: Coded Allergies: Shrimp (Unverified Allergy, Unknown, 12/04/17) Subjective afebrile off abx no leukcoytosis Objective Vital Signs Last 24 Hour Vital Signs Date Time Temp Pulse Resp B/P (MAP) Pulse Ox O2 Delivery O2 Flow Rate FiO2 02/06/18 08:00 97.5 73 22 112/57 98 Nasal Cannula 2.0 97.5 02/06/18 04:22 98.1 02/06/18 04:00 98.1 94 17 104/60 99 98.1 02/06/18 00:16 97.8 81 16 111/61 99 97.8 02/05/18 20:40 98 Nasal Cannula 2.0 28 02/05/18 20:40 Nasal Cannula 2.0 28 02/05/18 20:24 99 Nasal Cannula 2.0 02/05/18 20:24 97.9 86 18 117/64 99 97.9 02/05/18 15:59 98.0 89 20 119/72 98 98.0 02/05/18 12:00 97.9 83 20 118/65 99 Nasal Cannula 2.0 97.9 Height (Feet): 5 Height (Inches): 4.00 Weight (Pounds): 151 Objective General Appearance: cachetic HEENT: normocephalic Respiratory/Chest: chest wall non-tender, lungs clear Breasts: no masses Cardiovascular: normal peripheral pulses, normal rate Abdomen: normal bowel sounds, soft, non tender Extremities: no cyanosis, no clubbing 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, no motor/sensory deficits Lymphatic: no neck adenopathy Current Medications Medications (Trade) Dose Ordered Sig/Hansel Route PRN Reason Start Time Stop Time Status Last Admin Dose Admin Acetaminophen (Tylenol) 650 mg Q6H PRN ORAL Mild Pain/Temp > 100.5 01/27/18 17:30 02/26/18 17:29 02/06/18 03:23 Clonidine HCl (Catapres Tab) 0.1 mg Q4H PRN ORAL sbp more than 160mmHg 01/21/18 21:00 02/20/18 20:59 Dextrose (Dextrose 50%) 25 ml STAT PRN IV Blood Sugar btwn 60-69 mg/dL 01/21/18 21:00 02/20/18 20:59 Dextrose (Dextrose 50%) 50 ml STAT PRN IV BS less than 60mg/dl 01/21/18 21:00 02/20/18 20:59 01/27/18 20:27 Dicyclomine HCl (Bentyl) 20 mg Q6H PRN ORAL Abdominal cramps 02/03/18 14:30 03/05/18 14:29 Docusate Sodium (Colace) 100 mg THREE TIMES A DAY ORAL 01/26/18 13:00 02/25/18 12:59 01/28/18 09:08 Insulin Aspart (NovoLOG) BEFORE MEALS AND HS SUBQ 01/21/18 21:00 02/19/18 16:29 02/05/18 20:34 Insulin Aspart (NovoLOG) 10 units NOVOTIAC SUBQ 01/23/18 11:50 02/22/18 11:49 02/05/18 11:46 Insulin Detemir (Levemir) 18 units EVERY 12 HOURS SUBQ 01/23/18 09:00 02/19/18 08:59 02/06/18 08:42 Polyethylene Glycol (Miralax) 17 gm BEDTIME ORAL 01/26/18 21:00 02/19/18 20:59 Sennosides (Senokot) 1 tab DAILY ORAL 01/27/18 09:00 02/26/18 08:59 01/28/18 09:09 Vitamin A/Vitamin D (A & D Oint) 1 applic EVERY 12 HOURS [facility] 01/21/18 21:00 02/19/18 20:59 02/06/18 08:49 Caterina Elizondo M.D. February 06, 2018 11:34
[2018-02-06 12:00] VITALS: BP 108/64
--- NOTE | 2018-02-06 12:00 | General Progress Note ---
Assessment/Plan Assessment/Plan #. Thrombocytopenia, secondary to hepatitis, early liver disease, Hep A ++, C ++ , baseline appears to be 100-200k --> platelet count has improved, baseline >100k --> Gi to follow as outpatient #. Anemia due to underlying chronic disease. Continue to closely monitor. Has been stable. --> Blood transfusion not required unless symptomatic or hgb <7 --> Reviewed anemia workup. Iron 110, TIBC 230, Ferritin 90 and 140, B12 821, Folate 6.6, TSH 1.4 --> hgb goal >7 #. Leukopenia, likely secondary to hepatitis C, currently improved. --> No leukocytosis is noted. --> Resolved at this time. #. Tachycardia --> Improved. Refer to cardiology note. #. Acute on hypoxic respiratory failure --> status post tracheostomy, improved. #. Hepatitis C. with elevated liver enzymes. Management as an outpatient. --> Appreciate ID service evaluation as well as GI recs Subjective Constitutional: Denies: no symptoms, chills, diaphoresis, fever, malaise, weakness, other HEENT: Denies: no symptoms, eye pain, blurred vision, tearing, double vision, ear pain, ear discharge, nose pain, nose congestion, throat pain, throat swelling, mouth pain, mouth swelling, other Cardiovascular: Denies: no symptoms, chest pain, edema, irregular heart rate, lightheadedness, palpitations, syncope, other Respiratory: Denies: no symptoms, cough, orthopnea, shortness of breath, SOB with excertion, SOB at rest, sputum, stridor, wheezing, other Gastrointestinal/Abdominal: Denies: no symptoms, abdomen distended, abdominal pain, black stools, tarry stools, blood in stool, constipated, diarrhea, difficulty swallowing, nausea, poor appetite, poor fluid intake, rectal bleeding , vomiting, other Genitourinary: Denies: no symptoms, burning, discharge, frequency, flank pain, hematuria, incontinence, pain, urgency, other Neurologic/Psychiatric: Denies: no symptoms, anxiety, depressed, emotional problems, headache, numbness, paresthesia, pre-existing deficit, seizure, tingling, tremors, weakness, other Endocrine: Denies: no symptoms, excessive sweating, flushing, intolerance to cold, intolerance to heat, increased hunger, increased thirst, increased urine, unexplained weight gain, unexplained weight loss, other Hematologic/Lymphatic: Denies: no symptoms, anemia, easy bleeding, easy bruising, other Allergies: Coded Allergies: Shrimp (Unverified Allergy, Unknown, 12/04/17) Subjective Patient is awake and resting in bed. Is pending placement, counts reviewed Objective Last 24 Hour Vital Signs Date Time Temp Pulse Resp B/P (MAP) Pulse Ox O2 Delivery O2 Flow Rate FiO2 02/06/18 08:00 97.5 73 22 112/57 98 Nasal Cannula 2.0 97.5 02/06/18 04:22 98.1 02/06/18 04:00 98.1 94 17 104/60 99 98.1 02/06/18 00:16 97.8 81 16 111/61 99 97.8 02/05/18 20:40 98 Nasal Cannula 2.0 28 02/05/18 20:40 Nasal Cannula 2.0 28 02/05/18 20:24 99 Nasal Cannula 2.0 02/05/18 20:24 97.9 86 18 117/64 99 97.9 02/05/18 15:59 98.0 89 20 119/72 98 98.0 02/05/18 12:00 97.9 83 20 118/65 99 Nasal Cannula 2.0 97.9 Intake and Output 02/05/18 02/06/18 19:00 07:00 Intake Total 902 ml 360 ml Balance 902 ml 360 ml Intake Oral 902 ml 360 ml # Voids 4 # Bowel Movements 1 Height (Feet): 5 Height (Inches): 4.00 Weight (Pounds): 151 General Appearance: no apparent distress EENT: normal ENT inspection Neck: supple Cardiovascular: regular rhythm Respiratory/Chest: normal breath sounds Abdomen: no mass Extremities: non-tender Edema: 1+ Leg (L), 1+ Leg (R) Neurologic: alert Skin: warm/dry Anuj Alfaro MD February 06, 2018 12:00
--- NOTE | 2018-02-06 12:32 | General Progress Note ---
Assessment/Plan Problem List: (1) Hyperkalemia ICD Codes: E87.5 - Hyperkalemia SNOMED: 32908498 (2) Acidosis ICD Codes: E87.2 - Acidosis SNOMED: 80139513 (3) CO2 retention ICD Codes: E87.2 - Acidosis SNOMED: 31828917 (4) Respiratory distress ICD Codes: R06.03 - Acute respiratory distress SNOMED: 203227742 (5) COPD (chronic obstructive pulmonary disease) ICD Codes: J44.9 - Chronic obstructive pulmonary disease, unspecified SNOMED: 36951729 (6) Hepatitis C ICD Codes: B19.20 - Unspecified viral hepatitis C without hepatic coma SNOMED: 28082622 (7) Acute and chronic respiratory failure ICD Codes: J96.20 - Acute and chronic respiratory failure, unspecified whether with hypoxia or hypercapnia SNOMED: 27583036 (8) Diabetes mellitus out of control ICD Codes: E11.65 - Type 2 diabetes mellitus with hyperglycemia SNOMED: 76682098, 038832469 (9) Tachycardia ICD Codes: R00.0 - Tachycardia, unspecified SNOMED: 1221371 (10) Hypertension ICD Codes: I10 - Essential (primary) hypertension SNOMED: 53178168 Assessment/Plan encephalopathy resolved psychosis due to [facility] [place] depression Risperdal Ativan Subjective Date patient seen: February 06, 2018 Neurologic/Psychiatric: Reports: anxiety, depressed, emotional problems Allergies: Coded Allergies: Shrimp (Unverified Allergy, Unknown, 12/04/17) Subjective e pt was somewhat confused however able to answer the questions. more depressed Objective Last 24 Hour Vital Signs Date Time Temp Pulse Resp B/P (MAP) Pulse Ox O2 Delivery O2 Flow Rate FiO2 02/06/18 12:00 98.4 96 20 108/64 99 Nasal Cannula 2.0 98.4 02/06/18 08:00 97.5 73 22 112/57 98 Nasal Cannula 2.0 97.5 02/06/18 04:22 98.1 02/06/18 04:00 98.1 94 17 104/60 99 98.1 02/06/18 00:16 97.8 81 16 111/61 99 97.8 02/05/18 20:40 98 Nasal Cannula 2.0 28 02/05/18 20:40 Nasal Cannula 2.0 28 02/05/18 20:24 99 Nasal Cannula 2.0 5/22/18 20:24 97.9 86 18 117/64 99 97.9 02/05/18 15:59 98.0 89 20 119/72 98 98.0 Intake and Output 02/05/18 02/06/18 19:00 07:00 Intake Total 902 ml 360 ml Balance 902 ml 360 ml Intake Oral 902 ml 360 ml # Voids 4 # Bowel Movements 1 Height (Feet): 5 Height (Inches): 4.00 Weight (Pounds): 151 General Appearance: WD/WN, no apparent distress, alert Grisel Jay M.D. February 06, 2018 12:32
--- NOTE | 2018-02-06 14:34 | Pulmonology Progress Note ---
Assessment/Plan Problems: (1) Acute and chronic respiratory failure (2) COPD (chronic obstructive pulmonary disease) (3) Hepatitis C Assessment/Plan doing better no new events no new complains respiratory treatment still in search of a new place Subjective ROS Limited/Unobtainable: No Constitutional: Reports: no symptoms HEENT: Repors: no symptoms Respiratory: Reports: no symptoms Allergies: Coded Allergies: Shrimp (Unverified Allergy, Unknown, 12/04/17) Objective Last 24 Hour Vital Signs Date Time Temp Pulse Resp B/P (MAP) Pulse Ox O2 Delivery O2 Flow Rate FiO2 02/06/18 12:00 98.4 96 20 108/64 99 Nasal Cannula 2.0 98.4 02/06/18 08:00 97.5 73 22 112/57 98 Nasal Cannula 2.0 97.5 02/06/18 07:50 Nasal Cannula 2.0 28 02/06/18 07:50 98 Nasal Cannula 2.0 28 02/06/18 04:22 98.1 02/06/18 04:00 98.1 94 17 104/60 99 98.1 02/06/18 00:16 97.8 81 16 111/61 99 97.8 02/05/18 20:40 98 Nasal Cannula 2.0 28 02/05/18 20:40 Nasal Cannula 2.0 28 02/05/18 20:24 99 Nasal Cannula 2.0 02/05/18 20:24 97.9 86 18 117/64 99 97.9 02/05/18 15:59 98.0 89 20 119/72 98 98.0 Intake and Output 02/05/18 02/06/18 19:00 07:00 Intake Total 902 ml 360 ml Balance 902 ml 360 ml Intake Oral 902 ml 360 ml # Voids 4 # Bowel Movements 1 Objective General Appearance: cachetic HEENT: normocephalic Respiratory/Chest: chest wall non-tender, lungs clear Breasts: no masses Cardiovascular: normal peripheral pulses, normal rate Abdomen: normal bowel sounds, soft, non tender Extremities: no cyanosis, no clubbing Neurologic/Psychiatric: women nurse II-XII grossly normal, no motor/sensory deficits Lymphatic: no neck adenopathy Current Medications Medications (Trade) Dose Ordered Sig/Hansel Route PRN Reason Start Time Stop Time Status Last Admin Dose Admin Acetaminophen (Tylenol) 650 mg Q6H PRN ORAL Mild Pain/Temp > 100.5 01/27/18 17:30 02/26/18 17:29 02/06/18 03:23 Clonidine HCl (Catapres Tab) 0.1 mg Q4H PRN ORAL sbp more than 160mmHg 01/21/18 21:00 02/20/18 20:59 Dextrose (Dextrose 50%) 25 ml STAT PRN IV Blood Sugar btwn 60-69 mg/dL 01/21/18 21:00 02/20/18 20:59 Dextrose (Dextrose 50%) 50 ml STAT PRN IV BS less than 60mg/dl 01/21/18 21:00 02/20/18 20:59 01/27/18 20:27 Dicyclomine HCl (Bentyl) 20 mg Q6H PRN ORAL Abdominal cramps 02/03/18 14:30 03/05/18 14:29 Docusate Sodium (Colace) 100 mg THREE TIMES A DAY ORAL 01/26/18 13:00 02/25/18 12:59 01/28/18 09:08 Insulin Aspart (NovoLOG) BEFORE MEALS AND HS SUBQ 01/21/18 21:00 02/19/18 16:29 02/06/18 11:59 Insulin Aspart (NovoLOG) 10 units NOVOTIAC SUBQ 01/23/18 11:50 02/22/18 11:49 02/06/18 11:57 Insulin Detemir (Levemir) 18 units EVERY 12 HOURS SUBQ 01/23/18 09:00 02/19/18 08:59 02/06/18 08:42 Polyethylene Glycol (Miralax) 17 gm BEDTIME ORAL 01/26/18 21:00 02/19/18 20:59 Sennosides (Senokot) 1 tab DAILY ORAL 01/27/18 09:00 02/26/18 08:59 01/28/18 09:09 Vitamin A/Vitamin D (A & D Oint) 1 applic EVERY 12 HOURS TOPIC 01/21/18 21:00 02/19/18 20:59 02/06/18 08:49 Leni Watts MD February 06, 2018 14:34
--- NOTE | 2018-02-07 17:31 | Discharge Summary ---
Discharge Summary Discharge Summary _ DATE OF ADMISSION: 12/20/2017 DATE OF DISCHARGE: 02/06/2018 CONSULTANTS: Dr. Leni Dixon [facility]: Patient is a 67-year-old female, with history of COPD, hypertension, diabetes mellitus, [facility] for chief complaint of acute hypoxemia. Patient reported shortness of breath, denied chest pain, back or flank pain. She has medical history significant for hepatitis C, COPD, diabetes, anxiety, encephalopathy. On evaluation at ED, she was noted to have 85% saturation on room air, which eventually improved to 94% on 3 L nasal cannula. Upon arrival, she was belligerent and uncooperative. She continued to desaturate. ABG showed acidosis. She was placed on BiPAP. A central line was inserted to the right femoral vein. Blood work showed elevated lactic acid 4.2. Chest x-ray showed left costophrenic blunting, mild interstitial congestion. She was then admitted to ICU for evaluation of respiratory failure. She was seen by infectious disease specialist. She was recently admitted on November 2017 where she was treated for possible pneumonia, sputum culture showed growth of Escherichia coli and Proteus mirabilis. She was treated then with 7 days of cefepime. She was placed on breathing treatment and respiratory therapy. Influenza screen was negative. She was started on Solu-Medrol 60 mg IV every 6 hours. She was started by ID specialist on Levaquin for COPD exacerbation. Breathing status improved. She was eventually taken off BiPAP support and was placed on nasal cannula. Patient was agitated and confused. She had encephalopathy and psychosis due to general medical condition. She was seen by the psychiatrist and was given Risperdal and Ativan. She has diabetes mellitus and was seen by paper cleaner. Blood glucose was monitored. She was placed on NovoLog insulin and Levemir. She was being given steroids and had labile blood sugar with episodes of hypo and hyperglycemia. She needed frequent re-dosing of Levemir and NovoLog. She was noted to have episodes of thrombocytopenia. Workup showed she had untreated hepatitis C. She had immunity to hepatitis A but not hepatitis B. Thrombocytopenia was assessed to be secondary to hepatitis C infection. She also had elevated liver transaminases likely due to hepatitis C. Anemia workup showed anemia due to underlying chronic disease. She did not require blood transfusion. She was noted to have tachycardia, cardiac evaluation was done. She denied chest pain. Echocardiogram done showed normal ejection fraction except for basal and mid posterior wall and mild diastolic relaxation abnormalities. Electrocardiogram appeared sinus tachycardia. PVCs were noted with a lot of tremor artifact. QRS appeared normal. There was no significant ST to T wave abnormalities documented. P wave morphology appeared to be relatively stable. She was given magnesium and potassium supplements. TSH was normal. Beta agonist inhalers was discontinued. Tachycardia resolved. She came in with a stage II sacral decubitus ulcer, and was provided with wound care and frequent repositioning and offloading. Wound remained stable. She was a difficult placement. She completed antibiotic treatment with Levaquin. Solu-Medrol was eventually tapered off. Breathing was better. She was referred to multiple nursing homes however was not accepted. Finally, placement was secured and patient was accepted to [facility]. She was then discharged to SNF. FINAL DIAGNOSES: Acute hypoxic on chronic respiratory failure History of prior trach status post removal Acute COPD exacerbation Hepatitis C infection Diabetes mellitus out of control Tachycardia Hypertension Thrombocytopenia secondary to hepatitis Anemia due to underlying chronic disease Leukopenia likely secondary to hepatitis C Elevated liver transaminases due to hepatitis Encephalopathy Psychosis Depression Stage II sacral pressure ulcer, present on admission DISPOSITION: Patient was discharged to a SNF. DISCHARGE MEDICATIONS: Refer to Discharge Medication List. DISCHARGE INSTRUCTIONS: Follow up GI for outpatient treatment of hepatitis C. Will need hepatitis B vaccination. I have been assigned to dictate discharge summary on this account, and I was not involved in the patient's management. Marlena Greene NP February 07, 2018 17:31
== END 2018-02-06 16:47 | DRG 140 ==
LOC: EDBD 20:19 → EMR 22:07 → ICU 22:09 → EDBEDREQTM 22:15 → EDBEDREQ 22:15 → EDBEDREQSVC 22:15 → EDBEDREQ 22:27 → 2E 12-24 13:55 → 4W 12-26 15:18 → 2E 01-20 15:06 → 4W 01-21 21:53
PROC: 5A09357 Assistance with Respiratory Ventilation, Less than 24 Consecutive Hours, Continuous Positive Airway Pressure (ICD-10-PCS; principal; 2017-12-20)
PROC: 06HM33Z Insertion of Infusion Device into Right Femoral Vein, Percutaneous Approach (ICD-10-PCS; 2017-12-20)
DX: J44.1 Chronic obstructive pulmonary disease with (acute) exacerbation (principal); J96.21 Acute and chronic respiratory failure with hypoxia; G93.40 Encephalopathy, unspecified; L89.152 Pressure ulcer of sacral region, stage 2; E87.2 Acidosis; D69.6 Thrombocytopenia, unspecified; E11.65 Type 2 diabetes mellitus with hyperglycemia; F06.8 Other specified mental disorders due to known physiological condition; E87.5 Hyperkalemia; B19.20 Unspecified viral hepatitis C without hepatic coma; I10 Essential (primary) hypertension; D64.9 Anemia, unspecified; R00.0 Tachycardia, unspecified; D72.819 Decreased white blood cell count, unspecified
CPT/HCPCS: 36415; 36600; 71045; 80048; 80053; 82270; 82550; 82553; 82607; 82728; 82746; 82803; 82962; 83010; 83540; 83550; 83605; 83615; 83735; 83880; 84100; 84443; 84484; 85007; 85025; 85044; 85060; 85384; 85610; 85651; 86703; 86704; 86705; 86708; 86709; 86710; 86803; 87040; 87081; 87340; 87517; 87522; 93005; 93306; 94640; 94660; 94664; 94760; 99291; J1815; J2405; J7620; S5561